=== PATIENT | male | born 1960 | race American Indian/Alaskan Native ===

== ENCOUNTER 2020-12-27 16:20 | Inpatient (IN) | payer MEDICAID ==
[2020-12-27] MEDS ORDERED: SODIUM CHLORIDE 0.9% 1000 ML 1,000 ML IV ONE (17:11)
--- NOTE | 2020-12-27 17:35 | XRay Report ---
CHEST 1 VIEW 12/27/2020 5:08 PM INDICATION / CLINICAL INFORMATION: AMS. COMPARISON: None available. FINDINGS: SUPPORT DEVICES: None. HEART / MEDIASTINUM: No significant abnormality. LUNGS / PLEURA: No significant pulmonary or pleural abnormality. No pneumothorax. ADDITIONAL FINDINGS: No significant additional findings. IMPRESSION: 1. No acute findings. Signer Name: Jamel Payne MD Signed: 12/27/2020 5:30 PM Workstation Name: [id number]
[2020-12-27 17:38] LABS: Amphetamine Screen,Urine Negative; Benzodiazepines Screen,Urine Negative; Cannabinoid Screen,Urine Negative; Cocaine Screen,Urine Negative; Methadone Screen,Urine Negative; Opiate Screen,Urine Negative
[2020-12-27] MEDS ORDERED: NALOXONE 2 MG/2 ML INJ IV ONE (17:51)
--- NOTE | 2020-12-27 18:13 | Cat Scan Report ---
NONENHANCED CT SCAN OF THE HEAD: INDICATION / CLINICAL INFORMATION: 89 years Male; AMS. Unresponsive TECHNIQUE: Routine CT head without contrast. All CT scans at this location are performed using CT dos e reduction for ALARA by means of automated exposure control. COMPARISON: None. FINDINGS: BRAIN / INTRACRANIAL CONTENTS: No acute hemorrhage, mass effect, midline shift, hydrocephalus, or acu te, large territorial infarct. No chronic infarct. Volume loss in the superior vermis. Normal brain v olume and ventricular/sulcal size for age. No significant white matter abnormality. CRANIOCERVICAL JUNCTION: No significant abnormality. ORBITS: No significant abnormality of visualized orbits. SINUSES / MASTOIDS: No significant abnormality of the visualized paranasal sinuses or mastoid air aruna ls. ADDITIONAL FINDINGS: None. IMPRESSION: No focal mass, hemorrhage, hydrocephalus, or acute, large territorial infarct.; Volume loss in the s uperior vermis Signer Name: Gary Valencia MD Signed: 12/27/2020 6:08 PM Workstation Name: [id number]
[2020-12-27 18:26] LABS: Alanine Aminotransferase 10 units/L (7-56); Albumin 3.9 g/dL (3.9-5); Blood Urea Nitrogen 9 mg/dL (9-20); Hemolysis Index 17
[2020-12-27 18:27] LABS: BUN/Creatinine Ratio 13; Bilirubin,Direct < 0.2 mg/dL (0-0.2)
[2020-12-27 18:39] LABS: Basophils # (Auto) 0.1 K/mm3 (0.0-0.1); Basophils % (Auto) 0.5 % (0.0-1.8); Eosinophils % (Auto) 0.2 % (0.0-4.3); Hematocrit 36.9 % (35.5-45.6); Hemoglobin 11.9 gm/dl (11.8-15.2); Lymphocytes # (Auto) 0.7 K/mm3 (1.2-5.4); Lymphocytes % (Auto) 6.4 % (13.4-35.0); Mean Corpuscular HGB Conc 32 % (32-34); Mean Corpuscular Volume 71 fl (84-94); Monocytes # (Auto) 0.4 K/mm3 (0.0-0.8); Monocytes % (Auto) 3.9 % (0.0-7.3); Platelet Count 265 K/mm3 (140-440); Red Blood Count 5.21 M/mm3 (3.65-5.03); Red Cell Distribution Width 17.1 % (13.2-15.2)
--- NOTE | 2020-12-27 21:16 | Emergency Department Report ---
ED Altered Mental Status HPI - General Chief Complaint: Altered Mental Status Stated Complaint: GENERAL ILLNESS Time Seen by Provider: 12/27/20 16:59 Source: EMS Mode of arrival: Stretcher Limitations: No Limitations - History of Present Illness Initial Comments: Unknown aged male presents to ED via EMS. Per EMS patient was found in the aguir[place] and brought in for evaluation. Patient is not awake and alert, he is nonverbal, he responds to painful stimuli. MD Complaint: altered mental status -: unknown Severity: moderate Consistency of Symptoms: constant Context: unknown - Related Data Allergies Allergy/AdvReac Type Severity Reaction Status Date / Time No Known Allergies Allergy Unverified 12/27/20 16:47 ED Review of Systems ROS: Stated complaint: GENERAL ILLNESS Other details as noted in HPI Comment: Unobtainable due to pts medical conditions ED Past Medical Hx - Social History Smoking Status: Unknown if ever smoked ED Physical Exam - General Limitations: No Limitations General appearance: lethargic - Head Head exam: Present: atraumatic, normocephalic, normal inspection - Eye Pupils: Present: other (Pinpoint pupils bilaterally) - ENT ENT exam: Present: mucous membranes moist - Neck Neck exam: Present: normal inspection - Respiratory Respiratory exam: Present: normal lung sounds bilaterally. Absent: respiratory distress - Cardiovascular Cardiovascular Exam: Present: regular rate, normal rhythm - GI/Abdominal GI/Abdominal exam: Present: soft. Absent: distended, tenderness - Extremities Exam Extremities exam: Present: normal inspection - Neurological Exam Neurological exam: Present: altered, other (GCS 8 (E2, V1, M5)) ED Course Vital Signs 12/27/20 12/27/20 12/27/20 16:28 16:30 16:42 Temperature 98.9 F Pulse Rate 79 91 H Respiratory 16 16 19 Rate Blood Pressure 172/96 158/84 Blood Pressure [Right] O2 Sat by Pulse 95 94 95 Oximetry 12/27/20 12/27/20 12/27/20 16:46 17:00 17:10 Temperature Pulse Rate 94 H Respiratory 21 30 H 19 Rate Blood Pressure 172/96 161/71 Blood Pressure 159/75 [Right] O2 Sat by Pulse 92 91 98 Oximetry 12/27/20 12/27/20 12/27/20 17:16 17:30 17:46 Temperature Pulse Rate Respiratory 22 21 15 Rate Blood Pressure 159/75 145/87 145/87 Blood Pressure [Right] O2 Sat by Pulse 100 100 100 Oximetry 12/27/20 12/27/20 12/27/20 17:56 18:00 18:16 Temperature Pulse Rate 88 Respiratory 20 22 28 H Rate Blood Pressure 152/91 152/91 Blood Pressure 154/71 [Right] O2 Sat by Pulse 99 100 Oximetry 12/27/20 12/27/20 12/27/20 18:30 18:46 19:00 Temperature Pulse Rate Respiratory 28 H 29 H 31 H Rate Blood Pressure 160/78 152/85 137/82 Blood Pressure [Right] O2 Sat by Pulse Oximetry 12/27/20 12/27/20 12/27/20 19:16 19:30 19:46 Temperature Pulse Rate Respiratory 22 20 20 Rate Blood Pressure 154/83 155/85 164/90 Blood Pressure [Right] O2 Sat by Pulse Oximetry 12/27/20 12/27/20 12/27/20 20:00 20:16 20:30 Temperature Pulse Rate 98 H Respiratory 33 H 28 H 27 H Rate Blood Pressure 203/102 141/86 160/89 Blood Pressure [Right] O2 Sat by Pulse 97 Oximetry 12/27/20 12/27/20 12/27/20 20:46 21:00 21:16 Temperature Pulse Rate 96 H 108 H 103 H Respiratory 23 28 H 27 H Rate Blood Pressure 154/90 157/96 169/86 Blood Pressure [Right] O2 Sat by Pulse 99 98 99 Oximetry 12/27/20 12/27/20 12/27/20 21:30 21:40 21:46 Temperature 100.5 F H Pulse Rate 89 75 Respiratory 23 20 Rate Blood Pressure 162/94 170/104 Blood Pressure [Right] O2 Sat by Pulse 99 Oximetry 12/27/20 12/27/20 12/27/20 22:00 22:16 22:30 Temperature Pulse Rate 72 72 72 Respiratory 19 22 19 Rate Blood Pressure 162/94 162/94 170/104 Blood Pressure [Right] O2 Sat by Pulse 100 100 100 Oximetry 12/27/20 12/27/20 12/27/20 22:46 23:00 23:16 Temperature Pulse Rate 88 104 H 105 H Respiratory 20 27 H 29 H Rate Blood Pressure 170/104 170/93 170/93 Blood Pressure [Right] O2 Sat by Pulse 100 96 96 Oximetry - Reevaluation(s) Reevaluation #1: 12/27/20 18:10 No change in responsiveness with Narcan. Reevaluation #2: 12/27/20 21:13 Patient still asleep. Protecting airway. Vitals are stable. Labs are unremarkable. Patient moves all extremities. He localizes pain. Remains nonverbal. - Lab Data Result diagrams: 12/27/20 17:34 12/27/20 17:34 Lab Results 12/27/20 12/27/20 12/27/20 Range/Units 16:26 17:11 17:34 WBC 10.7 (4.5-11.0) K/mm3 RBC 5.21 H (3.65-5.03) M/mm3 Hgb 11.9 (11.8-15.2) gm/dl Hct 36.9 (35.5-45.6) % MCV 71 L (84-94) fl MCH 23 L (28-32) pg MCHC 32 (32-34) % RDW 17.1 H (13.2-15.2) % Plt Count 265 (140-440) K/mm3 Lymph % (Auto) 6.4 L (13.4-35.0) % Emmet % (Auto) 3.9 (0.0-7.3) % Eos % (Auto) 0.2 (0.0-4.3) % Baso % (Auto) 0.5 (0.0-1.8) % Lymph # (Auto) 0.7 L (1.2-5.4) K/mm3 Emmet # (Auto) 0.4 (0.0-0.8) K/mm3 Eos # (Auto) 0.0 (0.0-0.4) K/mm3 Baso # (Auto) 0.1 (0.0-0.1) K/mm3 Seg Neutrophils % 89.0 H (40.0-70.0) % Seg Neutrophils # 9.5 H (1.8-7.7) K/mm3 Sodium (137-145) mmol/L Potassium (3.6-5.0) mmol/L Chloride (98-107) mmol/L Carbon Dioxide (22-30) mmol/L Anion Gap mmol/L BUN (9-20) mg/dL Creatinine (0.8-1.3) mg/dL Estimated GFR ml/min BUN/Creatinine Ratio % Glucose (75-100) mg/dL POC Glucose 99 (70-105) mg/dL Calcium (8.4-10.2) mg/dL Total Bilirubin (0.1-1.2) mg/dL Direct Bilirubin (0-0.2) mg/dL Indirect Bilirubin mg/dL AST (5-40) units/L ALT (7-56) units/L Alkaline Phosphatase (35-129) units/L Total Protein (6.3-8.2) g/dL Albumin (3.9-5) g/dL Albumin/Globulin Ratio % Salicylates (2.8-20.0) mg/dL Urine Opiates Screen Negative Urine Methadone Screen Negative Acetaminophen (10.0-30.0) ug/mL Ur Barbiturates Screen Negative Ur Phencyclidine Scrn Negative Ur Amphetamines Screen Negative U Benzodiazepines Scrn Negative Urine Cocaine Screen Negative U Marijuana (THC) Screen Negative Drugs of Abuse Note Disclamer Plasma/Serum Alcohol (0-0.07) % 12/27/20 12/27/20 12/27/20 Range/Units 17:34 17:34 17:34 WBC (4.5-11.0) K/mm3 RBC (3.65-5.03) M/mm3 Hgb (11.8-15.2) gm/dl Hct (35.5-45.6) % MCV (84-94) fl MCH (28-32) pg MCHC (32-34) % RDW (13.2-15.2) % Plt Count (140-440) K/mm3 Lymph % (Auto) (13.4-35.0) % Emmet % (Auto) (0.0-7.3) % Eos % (Auto) (0.0-4.3) % Baso % (Auto) (0.0-1.8) % Lymph # (Auto) (1.2-5.4) K/mm3 Emmet # (Auto) (0.0-0.8) K/mm3 Eos # (Auto) (0.0-0.4) K/mm3 Baso # (Auto) (0.0-0.1) K/mm3 Seg Neutrophils % (40.0-70.0) % Seg Neutrophils # (1.8-7.7) K/mm3 Sodium 135 L (137-145) mmol/L Potassium 3.8 (3.6-5.0) mmol/L Chloride 101.2 (98-107) mmol/L Carbon Dioxide 20 L (22-30) mmol/L Anion Gap 18 mmol/L BUN 9 (9-20) mg/dL Creatinine 0.7 L (0.8-1.3) mg/dL Estimated GFR > 60 ml/min BUN/Creatinine Ratio 13 % Glucose 104 H (75-100) mg/dL POC Glucose (70-105) mg/dL Calcium 9.0 (8.4-10.2) mg/dL Total Bilirubin 0.40 (0.1-1.2) mg/dL Direct Bilirubin < 0.2 (0-0.2) mg/dL Indirect Bilirubin 0.2 mg/dL AST 15 (5-40) units/L ALT 10 (7-56) units/L Alkaline Phosphatase 88 (35-129) units/L Total Protein 7.6 (6.3-8.2) g/dL Albumin 3.9 (3.9-5) g/dL Albumin/Globulin Ratio 1.1 % Salicylates < 0.3 L (2.8-20.0) mg/dL Urine Opiates Screen Urine Methadone Screen Acetaminophen 5.0 L (10.0-30.0) ug/mL Ur Barbiturates Screen Ur Phencyclidine Scrn Ur Amphetamines Screen U Benzodiazepines Scrn Urine Cocaine Screen U Marijuana (THC) Screen Drugs of Abuse Note Plasma/Serum Alcohol (0-0.07) % 12/27/20 Range/Units 17:34 WBC (4.5-11.0) K/mm3 RBC (3.65-5.03) M/mm3 Hgb (11.8-15.2) gm/dl Hct (35.5-45.6) % MCV (84-94) fl MCH (28-32) pg MCHC (32-34) % RDW (13.2-15.2) % Plt Count (140-440) K/mm3 Lymph % (Auto) (13.4-35.0) % Emmet % (Auto) (0.0-7.3) % Eos % (Auto) (0.0-4.3) % Baso % (Auto) (0.0-1.8) % Lymph # (Auto) (1.2-5.4) K/mm3 Emmet # (Auto) (0.0-0.8) K/mm3 Eos # (Auto) (0.0-0.4) K/mm3 Baso # (Auto) (0.0-0.1) K/mm3 Seg Neutrophils % (40.0-70.0) % Seg Neutrophils # (1.8-7.7) K/mm3 Sodium (137-145) mmol/L Potassium (3.6-5.0) mmol/L Chloride (98-107) mmol/L Carbon Dioxide (22-30) mmol/L Anion Gap mmol/L BUN (9-20) mg/dL Creatinine (0.8-1.3) mg/dL Estimated GFR ml/min BUN/Creatinine Ratio % Glucose (75-100) mg/dL POC Glucose (70-105) mg/dL Calcium (8.4-10.2) mg/dL Total Bilirubin (0.1-1.2) mg/dL Direct Bilirubin (0-0.2) mg/dL Indirect Bilirubin mg/dL AST (5-40) units/L ALT (7-56) units/L Alkaline Phosphatase (35-129) units/L Total Protein (6.3-8.2) g/dL Albumin (3.9-5) g/dL Albumin/Globulin Ratio % Salicylates (2.8-20.0) mg/dL Urine Opiates Screen Urine Methadone Screen Acetaminophen (10.0-30.0) ug/mL Ur Barbiturates Screen Ur Phencyclidine Scrn Ur Amphetamines Screen U Benzodiazepines Scrn Urine Cocaine Screen U Marijuana (THC) Screen Drugs of Abuse Note Plasma/Serum Alcohol < 0.01 (0-0.07) % - Radiology Data Radiology results: report reviewed, image reviewed - Medical Decision Making Unknown age male, appears to be possibly in the 50s, presents to ED by EMS. Bhavin coe was found in the wounds and transported to the ED. Work-up has been largely unremarkable. Vital signs stable. Patient mildly hypertensive, with remainder of vitals normal. He is afebrile. Labs are unremarkable. No signs of infection. WBCs normal. Chest x-ray is normal. Urine is normal. Toxicology screen is negative. CT head shows no acute findings. Patient has been monitored in ED for several hours without improvement in mental status. Patient opens eyes and withdraws to pain, but has been nonverbal. Patient is maintaining his airway. Etiology of encephalopathy is unclear. Patient will be admitted to hospitalist for further management. - Differential Diagnosis Intoxication, postictal state, intracranial abnormality, psychiatric illnes Critical care attestation.: If time is entered above; I have spent that time in minutes in the direct care of this critically ill patient, excluding procedure time. ED Disposition Clinical Impression: Acute encephalopathy Disposition: 09 ADMITTED INPATIENT Is pt being admited?: Yes Condition: Stable
[2020-12-27] MEDS ORDERED: NALOXONE 0.4 MG/1 ML INJ IV PRN (22:21)
[2020-12-27] MEDS ORDERED: ACETAMINOPHEN 325 MG TAB PO PRN (22:21)
[2020-12-27] MEDS ORDERED: ALUM-MAG HYDROXIDE-SIMETHICONE 200-200-20MG/5ML ORAL LIQD 30 ML PO PRN (22:21)
[2020-12-27] MEDS ORDERED: MAGNESIUM HYDROXIDE (MOM) ORAL LIQD UDC PO PRN (22:21)
[2020-12-27] MEDS ORDERED: ONDANSETRON 4 MG/2 ML INJ IV PRN (22:21)
--- NOTE | 2020-12-27 22:30 | History and Physical Report ---
History of Present Illness Date of examination: 12/27/20 Date of admission: 12/27/20 Chief complaint: AMS History of present illness: patient is seen in ED at bedside. patient name and age Unknown. per Ed record patient was brought to ED via EMS. Per EMS patient was found in the [place] and brought in for evaluation. Patient still unresponsive verbal and tactile st imuli. However, respiration is even and all unlabored. Blood pressure 168/88, oxygen saturation on 2 L 99%, respiration 19 and heart rate 73. CT of the head was done and is negative. Chest x-ray done is negative, urine drug screen showed negative for illicit drug, and blood work showed no acute finding. MRI of the brain ordered lactic acid ordered an elevated. Will start patient on empiric antibiotic and IV hydration. Discussed plan of care with the attending Dr. Chapman. Neurologist consulted. Past History Past Medical History: other (Patient unresponsive) Medications and Allergies Allergies Allergy/AdvReac Type Severity Reaction Status Date / Time No Known Allergies Allergy Unverified 12/27/20 16:47 Active Meds: Active Medications Acetaminophen (Acetaminophen 325 Mg Tab) 650 mg PO Q4H PRN PRN Reason: Pain MILD(1-3)/Fever >100.5/CARRERA Al Hydrox/Mg Hydrox/Simethicone (Alum-Mag Hydroxide-Simethicone 147-058-50jc/5ml Oral Liqd 30 Ml) 30 ml PO Q4H PRN PRN Reason: Indigestion Enoxaparin Sodium (Enoxaparin 40 Mg/0.4 Ml Inj) 40 mg SUB-Q QDAY CHELLE Dextrose/Sodium Chloride (D5/0.45ns) 1,000 mls @ 42 mls/hr IV DIRECT CHELLE Magnesium Hydroxide (Magnesium Hydroxide (Mom) Oral Liqd Udc) 30 ml PO Q4H PRN PRN Reason: Constipation Naloxone HCl (Naloxone 0.4 Mg/1 Ml Inj) 0.1 mg IV Q2MIN PRN PRN Reason: Res Rate </= 8 or 02 SAT < 92% Ondansetron HCl (Ondansetron 4 Mg/2 Ml Inj) 4 mg IV Q8H PRN PRN Reason: Nausea And Vomiting Sodium Chloride (Sodium Chloride 0.9% 10 Ml Flush Syringe) 10 ml IV BID CHELLE Sodium Chloride (Sodium Chloride 0.9% 10 Ml Flush Syringe) 10 ml IV PRN PRN PRN Reason: LINE FLUSH Exam - Constitutional Vitals: Temp Pulse Resp BP Pulse Ox 100.5 F H 98 H 27 H 160/89 97 12/27/20 21:40 12/27/20 20:30 12/27/20 20:30 12/27/20 20:30 12/27/20 20:30 Results - Labs CBC & Chem 7: 12/27/20 17:34 12/27/20 17:34 Labs: Abnormal lab results 12/27/20 12/27/20 12/27/20 Range/Units 17:34 17:34 17:34 RBC 5.21 H (3.65-5.03) M/mm3 MCV 71 L (84-94) fl MCH 23 L (28-32) pg RDW 17.1 H (13.2-15.2) % Lymph % (Auto) 6.4 L (13.4-35.0) % Lymph # (Auto) 0.7 L (1.2-5.4) K/mm3 Seg Neutrophils % 89.0 H (40.0-70.0) % Seg Neutrophils # 9.5 H (1.8-7.7) K/mm3 Sodium 135 L (137-145) mmol/L Carbon Dioxide 20 L (22-30) mmol/L Creatinine 0.7 L (0.8-1.3) mg/dL Glucose 104 H (75-100) mg/dL Salicylates < 0.3 L (2.8-20.0) mg/dL Acetaminophen (10.0-30.0) ug/mL 12/27/20 Range/Units 17:34 RBC (3.65-5.03) M/mm3 MCV (84-94) fl MCH (28-32) pg RDW (13.2-15.2) % Lymph % (Auto) (13.4-35.0) % Lymph # (Auto) (1.2-5.4) K/mm3 Seg Neutrophils % (40.0-70.0) % Seg Neutrophils # (1.8-7.7) K/mm3 Sodium (137-145) mmol/L Carbon Dioxide (22-30) mmol/L Creatinine (0.8-1.3) mg/dL Glucose (75-100) mg/dL Salicylates (2.8-20.0) mg/dL Acetaminophen 5.0 L (10.0-30.0) ug/mL Assessment and Plan - Patient Problems (1) Acute encephalopathy Current Visit: No Status: Inactive Plan to address problem: CT of the head and urine drug test-negative MRI of brain ordered Chest x-ray negative for acute finding Consulted neurologist (2) Hyponatremia Current Visit: No Status: Acute Plan to address problem: hyponaremia mild-likely 2/2 dehydration continue IV hydration (3) Elevated blood pressure reading Current Visit: No Status: Acute Plan to address problem: Unknow BP diagnosis Monitor blood pressure PRN Hydralazine (4) DVT prophylaxis Current Visit: Yes Status: Acute Plan to address problem: Subcutaneous Lovenox
[2020-12-27] MEDS ORDERED: hydrALAZINE 20 MG/1 ML INJ IV PRN (22:35)
[2020-12-27 22:55] LABS: Mucus,Urine 1+ /HPF
[2020-12-27] MEDS ORDERED: D5W/0.45% NACL 1,000 ML IV SCH (23:00)
[2020-12-27 23:23] LABS: Bilirubin,Urine Negative (Negative); Color,Urine Straw (Yellow)
[2020-12-27 23:25] LABS: Blood,Urine 2+ (Negative); Urobilinogen,Urine < 2.0 mg/dL (<2.0)
[2020-12-28 03:16] LABS: Granular Casts,Urine 1 /LPF; Hyaline Casts,Urine 1 /LPF; Mucus,Urine FEW /HPF
[2020-12-28 03:34] LABS: Bilirubin,Urine Negative (Negative); Blood,Urine Small (Negative); Color,Urine Straw (Yellow); Urobilinogen,Urine < 2.0 mg/dL (<2.0)
[2020-12-28] MEDS ORDERED: cefTRIAXone/NS 2 GM/100 ML 2 GM/100 ML BAG IV SCH (04:00)
[2020-12-28 06:03] LABS: Hematocrit 34.6 % (35.5-45.6); Hemoglobin 11.2 gm/dl (11.8-15.2); Mean Corpuscular HGB Conc 32 % (32-34); Platelet Count 243 K/mm3 (140-440); Red Blood Count 4.95 M/mm3 (3.65-5.03); Red Cell Distribution Width 16.7 % (13.2-15.2)
[2020-12-28 06:04] LABS: Mean Corpuscular Volume 70 fl (84-94)
[2020-12-28 06:23] LABS: Alanine Aminotransferase 9 units/L (7-56); BUN/Creatinine Ratio 11; Blood Urea Nitrogen 9 mg/dL (9-20); Calcium 9.2 mg/dL (8.4-10.2); Hemolysis Index 17
[2020-12-28 08:05] LABS: Band Neutrophils # (Manual) 0.1 K/mm3; Hypochromasia 1+; Ovalocytes 1+; Total Cells Counted 100
[2020-12-28 08:06] LABS: Platelet Estimate Consistent w Auto
[2020-12-28] MEDS: cefTRIAXone/NS 2 GM/100 ML 2 GM/100 ML BAG IV SCH (10:02)
[2020-12-28] MEDS: ENOXAPARIN 40 MG/0.4 ML INJ SUB-Q SCH (10:02)
[2020-12-28] MEDS: D5W/0.9% NACL 1,000 ML IV SCH (10:03)
--- NOTE | 2020-12-28 13:05 | Consultation ---
History of Present Illness - Reason for Consult Consult date: 12/28/20 sepsis Requesting physician: JACK JENKINS - History of Present Illness The patient is a middle-aged male with unknown name and age admitted to the hospital after EMS found the patient in the ag[place], unresponsive. Vitals were relatively stable but patient had a fever of 101.8 F. Labs did not reveal any leukocytosis, mild lactic acidosis, urinary tox screen was negative. Infectious diseases was consulted for additional evaluation. Patient is slowly waking up but remains confused. Poor historian. Review of Systems: Limited due to AMS Past History Past Medical History: other (Patient unresponsive) Medications and Allergies Allergies Allergy/AdvReac Type Severity Reaction Status Date / Time No Known Allergies Allergy Unverified 12/27/20 16:47 Active Meds: Active Medications Acetaminophen (Acetaminophen 325 Mg Tab) 650 mg PO Q4H PRN PRN Reason: Pain MILD(1-3)/Fever >100.5/CARRERA Al Hydrox/Mg Hydrox/Simethicone (Alum-Mag Hydroxide-Simethicone [id number]/5ml Oral Liqd 30 Ml) 30 ml PO Q4H PRN PRN Reason: Indigestion Enoxaparin Sodium (Enoxaparin 40 Mg/0.4 Ml Inj) 40 mg SUB-Q QDAY CHELLE Last Admin: 12/28/20 10:02 Dose: 40 mg Documented by: Hydralazine HCl (Hydralazine 20 Mg/1 Ml Inj) 5 mg IV Q4H PRN PRN Reason: Hypertension Dextrose/Sodium Chloride (D5ns) 1,000 mls @ 75 mls/hr IV DIRECT CHELLE Last Admin: 12/28/20 10:03 Dose: 75 mls/hr Documented by: Ceftriaxone Sodium (Rocephin/Ns 2 Gm/100 Ml) 2 gm in 100 mls @ 200 mls/hr IV DAILY CHELLE; Protocol Last Admin: 12/28/20 10:02 Dose: 200 mls/hr Documented by: Acyclovir 1,000 mg/ Sodium (Chloride) 120 mls @ 100 mls/hr IV Q8HR CHELLE; Protocol Magnesium Hydroxide (Magnesium Hydroxide (Mom) Oral Liqd Udc) 30 ml PO Q4H PRN PRN Reason: Constipation Naloxone HCl (Naloxone 0.4 Mg/1 Ml Inj) 0.1 mg IV Q2MIN PRN PRN Reason: Res Rate </= 8 or 02 SAT < 92% Ondansetron HCl (Ondansetron 4 Mg/2 Ml Inj) 4 mg IV Q8H PRN PRN Reason: Nausea And Vomiting Sodium Chloride (Sodium Chloride 0.9% 10 Ml Flush Syringe) 10 ml IV BID CHELLE Last Admin: 12/28/20 10:02 Dose: 10 ml Documented by: Sodium Chloride (Sodium Chloride 0.9% 10 Ml Flush Syringe) 10 ml IV PRN PRN PRN Reason: LINE FLUSH Physical Examination - Physical Exam Narrative exam: Physical Exam: Constitutional: Awake, confused Head, Ears, Nose: Normocephalic, atraumatic. External ears, nose normal Eyes: Conjunctivae/corneas clear. No icterus. No ptosis. Neck: Supple, no meningeal signs Cardiovascular: S1, S2 + Respiratory: Good air entry, clear to auscultation bilaterally GI: Soft, non-tender; bowel sounds normal. No peritoneal signs Musculoskeletal: No pedal edema, no cyanosis. Skin: No rash or abscess Hem/Lymphatic: No palpable cervical or supraclavicular nodes. No lymphangitis Psych: Confused. No agitation Neurological: Awake, confused - Constitutional Vitals: Vital Signs Temp Pulse Resp BP Pulse Ox 98.2 F 88 20 135/74 94 12/28/20 12:04 12/28/20 12:04 12/28/20 12:04 12/28/20 12:04 12/28/20 12:04 Temperature -Last 24 Hours Temperature 98.2 F Temperature 98.8 F Temperature 101.8 F Temperature 100.5 F Temperature 98.9 F Results - Labs CBC & Chem 7: 12/28/20 04:38 12/28/20 04:38 Labs: Abnormal lab results 12/27/20 12/27/20 12/27/20 Range/Units 17:34 17:34 17:34 RBC 5.21 H (3.65-5.03) M/mm3 Hgb (11.8-15.2) gm/dl Hct (35.5-45.6) % MCV 71 L (84-94) fl MCH 23 L (28-32) pg RDW 17.1 H (13.2-15.2) % Lymph % (Auto) 6.4 L (13.4-35.0) % Lymph # (Auto) 0.7 L (1.2-5.4) K/mm3 Seg Neutrophils % 89.0 H (40.0-70.0) % Seg Neuts % (Manual) (40.0-70.0) % Seg Neutrophils # 9.5 H (1.8-7.7) K/mm3 Seg Neutrophils # Man (1.8-7.7) K/mm3 Sodium 135 L (137-145) mmol/L Carbon Dioxide 20 L (22-30) mmol/L Creatinine 0.7 L (0.8-1.3) mg/dL Glucose 104 H (75-100) mg/dL POC Glucose (70-105) mg/dL Lactic Acid (0.7-2.0) mmol/L Urine Blood (Negative) Salicylates < 0.3 L (2.8-20.0) mg/dL Acetaminophen (10.0-30.0) ug/mL 12/27/20 12/27/20 12/28/20 Range/Units 17:34 23:44 01:17 RBC (3.65-5.03) M/mm3 Hgb (11.8-15.2) gm/dl Hct (35.5-45.6) % MCV (84-94) fl MCH (28-32) pg RDW (13.2-15.2) % Lymph % (Auto) (13.4-35.0) % Lymph # (Auto) (1.2-5.4) K/mm3 Seg Neutrophils % (40.0-70.0) % Seg Neuts % (Manual) (40.0-70.0) % Seg Neutrophils # (1.8-7.7) K/mm3 Seg Neutrophils # Man (1.8-7.7) K/mm3 Sodium (137-145) mmol/L Carbon Dioxide (22-30) mmol/L Creatinine (0.8-1.3) mg/dL Glucose (75-100) mg/dL POC Glucose 131 H (70-105) mg/dL Lactic Acid 3.70 H* (0.7-2.0) mmol/L Urine Blood (Negative) Salicylates (2.8-20.0) mg/dL Acetaminophen 5.0 L (10.0-30.0) ug/mL 12/28/20 12/28/20 12/28/20 Range/Units 02:15 04:38 04:38 RBC (3.65-5.03) M/mm3 Hgb 11.2 L (11.8-15.2) gm/dl Hct 34.6 L (35.5-45.6) % MCV 70 L (84-94) fl MCH 23 L (28-32) pg RDW 16.7 H (13.2-15.2) % Lymph % (Auto) (13.4-35.0) % Lymph # (Auto) (1.2-5.4) K/mm3 Seg Neutrophils % (40.0-70.0) % Seg Neuts % (Manual) 81.0 H (40.0-70.0) % Seg Neutrophils # (1.8-7.7) K/mm3 Seg Neutrophils # Man 8.4 H (1.8-7.7) K/mm3 Sodium 136 L (137-145) mmol/L Carbon Dioxide (22-30) mmol/L Creatinine (0.8-1.3) mg/dL Glucose 101 H (75-100) mg/dL POC Glucose (70-105) mg/dL Lactic Acid (0.7-2.0) mmol/L Urine Blood Small A (Negative) Salicylates (2.8-20.0) mg/dL Acetaminophen (10.0-30.0) ug/mL 12/28/20 12/28/20 Range/Units 04:38 07:35 RBC (3.65-5.03) M/mm3 Hgb (11.8-15.2) gm/dl Hct (35.5-45.6) % MCV (84-94) fl MCH (28-32) pg RDW (13.2-15.2) % Lymph % (Auto) (13.4-35.0) % Lymph # (Auto) (1.2-5.4) K/mm3 Seg Neutrophils % (40.0-70.0) % Seg Neuts % (Manual) (40.0-70.0) % Seg Neutrophils # (1.8-7.7) K/mm3 Seg Neutrophils # Man (1.8-7.7) K/mm3 Sodium (137-145) mmol/L Carbon Dioxide (22-30) mmol/L Creatinine (0.8-1.3) mg/dL Glucose (75-100) mg/dL POC Glucose 115 H (70-105) mg/dL Lactic Acid 2.50 H* (0.7-2.0) mmol/L Urine Blood (Negative) Salicylates (2.8-20.0) mg/dL Acetaminophen (10.0-30.0) ug/mL - Imaging and Cardiology Chest x-ray: report reviewed, image reviewed (no pneumonia) Assessment and Plan Cultures: None A/P: Middle aged male, unknown age and name admitted after EMS found the patient in the [place], unresponsive: #Fever: Etiology unclear. No leukocytosis. UA not impressive for UTI. Chest x-ray did not reveal any pneumonia. Patient was found in the ag[place], unresponsive. Mental status slowly getting better. No thrombocytopenia or transaminitis to suggest tickborne illness. Acute bacterial meningitis seems unlikely. #Acute encephalopathy: CT head without acute findings. urinary tox screen was negative Recs: Blood cultures ordered continue empiric ceftriaxone for now, d/c if afebrile and cultures negative added Acyclovir IV to cover HSV encephalitis. F/U MRI. Consider LP Jesusita Parr MD, FACP [facility] ([facility] O: [phone] F: [phone]
[2020-12-28] MEDS: ACYCLOVIR 1,000 MG in SODIUM CHLORIDE 0.9% 100 ML IV SCH (14:37)
--- NOTE | 2020-12-28 15:41 | Progress Note ---
Assessment and Plan Assessment and plan: patient is seen in ED at bedside. patient name and age Unknown. per Ed record patient was brought to ED via EMS. Per EMS patient was found in the [facility] and brought in for evaluation. Patient still unresponsive verbal and tactile stimuli. However, respiration is even and all unlabored. Blood pressure 168/88, oxygen saturation on 2 L 99%, respiration 19 and heart rate 73. CT of the head was done and is negative. Chest x-ray done is negative, urine drug screen showed negative for illicit drug, and blood work showed no acute finding. MRI of the brain ordered lactic acid ordered an elevated. Will start patient on empiric antibiotic and IV hydration. Discussed plan of care with the attending Dr. Chapman. Neurologist consulted. 12/28: Patient now with fever of unknown origin. Still confused discussed with ID will obtain lumbar puncture. 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 MRI is pending. (1) Acute encephalopathy Current Visit: No Status: Inactive Plan to address problem: CT of the head and urine drug test-negative MRI of brain ordered Chest x-ray negative for acute finding Consulted neurologist (2) Hyponatremia Current Visit: No Status: Acute Plan to address problem: hyponaremia mild-likely 2/2 dehydration continue IV hydration (3) Elevated blood pressure reading Current Visit: No Status: Acute Plan to address problem: Unknow BP diagnosis Monitor blood pressure PRN Hydralazine (4) DVT prophylaxis Current Visit: Yes Status: Acute Plan to address problem: Subcutaneous Lovenox History Interval history: Patient seen and evaluated this morning remains lethargic and confused has a blank stare when I called his name later today was advised that the patient was able to go to the bathroom but was unsteady on his feet. Hospitalist Physical - Physical exam Narrative exam: VITAL SIGNS: Reviewed. GENERAL: The patient appears normally developed, disheveled confused vital signs as documented. HEAD: No signs of head trauma. EYES: Pupils are equal. Extraocular motions intact. EARS: Hearing grossly intact. MOUTH: Oropharynx is normal. NECK: No adenopathy, no JVD. CHEST: Chest with clear breath sounds bilaterally. No wheezes, rales, or rhonchi. CARDIAC: Regular rate and rhythm. S1 and S2, without murmurs, gallops, or rubs. VASCULAR: No Edema. Peripheral pulses normal and equal in all extremities. ABDOMEN: Soft, non tender and non distended. No rebound or guarding, and no masses palpated. Bowel Sounds normal. MUSCULOSKELETAL: Good range of motion of all major joints. Extremities without clubbing, cyanosis or edema. NEUROLOGIC EXAM: Awake not sure about orientation assessed not answering questions no focal sensory or strength deficits. Follows some command PSYCHIATRIC: Mood confused SKIN: detail exam as documented in skin assessment - Constitutional Vitals: Temp Pulse Resp BP Pulse Ox 98.2 F 88 20 135/74 97 12/28/20 12:04 12/28/20 12:04 12/28/20 13:38 12/28/20 12:04 12/28/20 13:38 Results - Labs CBC & Chem 7: 12/28/20 04:38 12/28/20 04:38 Labs: Laboratory Last Values WBC 10.4 K/mm3 (4.5-11.0) 12/28/20 04:38 RBC 4.95 M/mm3 (3.65-5.03) 12/28/20 04:38 Hgb 11.2 gm/dl (11.8-15.2) L 12/28/20 04:38 Hct 34.6 % (35.5-45.6) L 12/28/20 04:38 MCV 70 fl (84-94) L 12/28/20 04:38 MCH 23 pg (28-32) L 12/28/20 04:38 MCHC 32 % (32-34) 12/28/20 04:38 RDW 16.7 % (13.2-15.2) H 12/28/20 04:38 Plt Count 243 K/mm3 (140-440) 12/28/20 04:38 Lymph % (Auto) 6.4 % (13.4-35.0) L 12/27/20 17:34 [place] % (Auto) 3.9 % (0.0-7.3) 12/27/20 17:34 Eos % (Auto) 0.2 % (0.0-4.3) 12/27/20 17:34 Baso % (Auto) 0.5 % (0.0-1.8) 12/27/20 17:34 Lymph # (Auto) 0.7 K/mm3 (1.2-5.4) L 12/27/20 17:34 [place] # (Auto) 0.4 K/mm3 (0.0-0.8) 12/27/20 17:34 Eos # (Auto) 0.0 K/mm3 (0.0-0.4) 12/27/20 17:34 Baso # (Auto) 0.1 K/mm3 (0.0-0.1) 12/27/20 17:34 Add Manual Diff Complete 12/28/20 04:38 Total Counted 100 12/28/20 04:38 Seg Neutrophils % 89.0 % (40.0-70.0) H 12/27/20 17:34 Seg Neuts % (Manual) 81.0 % (40.0-70.0) H 12/28/20 04:38 Band Neutrophils % 1.0 % 12/28/20 04:38 Lymphocytes % (Manual) 14.0 % (13.4-35.0) 12/28/20 04:38 Monocytes % (Manual) 4.0 % (0.0-7.3) 12/28/20 04:38 Nucleated RBC % Not Reportable 12/28/20 04:38 Seg Neutrophils # 9.5 K/mm3 (1.8-7.7) H 12/27/20 17:34 Seg Neutrophils # Man 8.4 K/mm3 (1.8-7.7) H 12/28/20 04:38 Band Neutrophils # 0.1 K/mm3 12/28/20 04:38 Lymphocytes # (Manual) 1.5 K/mm3 (1.2-5.4) 12/28/20 04:38 Abs React Lymphs (Man) 0.0 K/mm3 12/28/20 04:38 Monocytes # (Manual) 0.4 K/mm3 (0.0-0.8) 12/28/20 04:38 Eosinophils # (Manual) 0.0 K/mm3 (0.0-0.4) 12/28/20 04:38 Basophils # (Manual) 0.0 K/mm3 (0.0-0.1) 12/28/20 04:38 Metamyelocytes # 0.0 K/mm3 12/28/20 04:38 Myelocytes # 0.0 K/mm3 12/28/20 04:38 Promyelocytes # 0.0 K/mm3 12/28/20 04:38 Blast Cells # 0.0 K/mm3 12/28/20 04:38 WBC Morphology Not Reportable 12/28/20 04:38 Hypersegmented Neuts Not Reportable 12/28/20 04:38 Hyposegmented Neuts Not Reportable 12/28/20 04:38 Hypogranular Neuts Not Reportable 12/28/20 04:38 Smudge Cells Not Reportable 12/28/20 04:38 Toxic Granulation Not Reportable 12/28/20 04:38 Toxic Vacuolation Not Reportable 12/28/20 04:38 Dohle Bodies Not Reportable 12/28/20 04:38 Pelger-Huet Anomaly Not Reportable 12/28/20 04:38 Diana Rods Not Reportable 12/28/20 04:38 Platelet Estimate Consistent w auto 12/28/20 04:38 Clumped Platelets Not Reportable 12/28/20 04:38 Plt Clumps, EDTA Not Reportable 12/28/20 04:38 Large Platelets Not Reportable 12/28/20 04:38 Giant Platelets Not Reportable 12/28/20 04:38 Platelet Satelliting Not Reportable 12/28/20 04:38 Plt Morphology Comment Not Reportable 12/28/20 04:38 RBC Morphology Not Reportable 12/28/20 04:38 Dimorphic RBCs Not Reportable 12/28/20 04:38 Polychromasia Not Reportable 12/28/20 04:38 Hypochromasia 1+ 12/28/20 04:38 Poikilocytosis Not Reportable 12/28/20 04:38 Anisocytosis Not Reportable 12/28/20 04:38 Microcytosis 1+ 12/28/20 04:38 Macrocytosis Not Reportable 12/28/20 04:38 Spherocytes Not Reportable 12/28/20 04:38 Pappenheimer Bodies Not Reportable 12/28/20 04:38 Sickle Cells Not Reportable 12/28/20 04:38 Target Cells Not Reportable 12/28/20 04:38 Tear Drop Cells Not Reportable 12/28/20 04:38 Ovalocytes 1+ 12/28/20 04:38 Helmet Cells Not Reportable 12/28/20 04:38 [place] Bodies Not Reportable 12/28/20 04:38 [place] Rings Not Reportable 12/28/20 04:38 [place] Cells Not Reportable 12/28/20 04:38 Bite Cells Not Reportable 12/28/20 04:38 Crenated Cell Not Reportable 12/28/20 04:38 Elliptocytes Not Reportable 12/28/20 04:38 Acanthocytes (Spur) Not Reportable 12/28/20 04:38 Rouleaux Not Reportable 12/28/20 04:38 Hemoglobin C Crystals Not Reportable 12/28/20 04:38 Schistocytes Not Reportable 12/28/20 04:38 Malaria parasites Not Reportable 12/28/20 04:38 [place] Bodies Not Reportable 12/28/20 04:38 Hem Pathologist Commnt No 12/28/20 04:38 Sodium 136 mmol/L (137-145) L 12/28/20 04:38 Potassium 3.6 mmol/L (3.6-5.0) 12/28/20 04:38 Chloride 100.6 mmol/L (98-107) 12/28/20 04:38 Carbon Dioxide 27 mmol/L (22-30) D 12/28/20 04:38 Anion Gap 12 mmol/L 12/28/20 04:38 BUN 9 mg/dL (9-20) 12/28/20 04:38 Creatinine 0.8 mg/dL (0.8-1.3) 12/28/20 04:38 Estimated GFR > 60 ml/min 12/28/20 04:38 BUN/Creatinine Ratio 11 % 12/28/20 04:38 Glucose 101 mg/dL (75-100) H 12/28/20 04:38 POC Glucose 102 mg/dL (70-105) 12/28/20 12:14 Lactic Acid 1.30 mmol/L (0.7-2.0) 12/28/20 08:13 Calcium 9.2 mg/dL (8.4-10.2) 12/28/20 04:38 Total Bilirubin 0.60 mg/dL (0.1-1.2) 12/28/20 04:38 Direct Bilirubin < 0.2 mg/dL (0-0.2) 12/27/20 17:34 Indirect Bilirubin 0.2 mg/dL 12/27/20 17:34 AST 14 units/L (5-40) 12/28/20 04:38 ALT 9 units/L (7-56) 12/28/20 04:38 Alkaline Phosphatase 88 units/L (35-129) 12/28/20 04:38 Total Protein 7.6 g/dL (6.3-8.2) 12/28/20 04:38 Albumin 4.0 g/dL (3.9-5) 12/28/20 04:38 Albumin/Globulin Ratio 1.1 % 12/28/20 04:38 Urine Color Straw (Yellow) 12/28/20 02:15 Urine Turbidity Clear (Clear) 12/28/20 02:15 Urine pH 5.0 (5.0-7.0) 12/28/20 02:15 Ur Specific [place] 1.025 (1.003-1.030) 12/28/20 02:15 Urine Protein 100 mg/dl mg/dL (Negative) 12/28/20 02:15 Urine Glucose (UA) Negative mg/dL (Negative) 12/28/20 02:15 Urine Ketones Negative mg/dL (Negative) 12/28/20 02:15 Urine Blood Small (Negative) A 12/28/20 02:15 Urine Nitrite Negative (Negative) 12/28/20 02:15 Ur Reducing Substances Not Reportable 12/28/20 02:15 Urine Bilirubin Negative (Negative) 12/28/20 02:15 Urine Ictotest Not Reportable 12/28/20 02:15 Urine Urobilinogen < 2.0 mg/dL (<2.0) 12/28/20 02:15 Ur Leukocyte Esterase Negative (Negative) 12/28/20 02:15 Urine WBC (Auto) 3.0 /HPF (0.0-6.0) 12/28/20 02:15 Urine RBC (Auto) 4.0 /HPF (0.0-6.0) 12/28/20 02:15 U Epithel Cells (Auto) < 1.0 /HPF (0-13.0) 12/28/20 02:15 Hyaline Casts 1 /LPF 12/28/20 02:15 Granular Casts 1 /LPF 12/28/20 02:15 Urine Mucus Few /HPF 12/28/20 02:15 Salicylates < 0.3 mg/dL (2.8-20.0) L 12/27/20 17:34 Urine Opiates Screen Negative 12/27/20 17:11 Urine Methadone Screen Negative 12/27/20 17:11 Acetaminophen 5.0 ug/mL (10.0-30.0) L 12/27/20 17:34 Ur Barbiturates Screen Negative 12/27/20 17:11 Ur Phencyclidine Scrn Negative 12/27/20 17:11 Ur Amphetamines Screen Negative 12/27/20 17:11 U Benzodiazepines Scrn Negative 12/27/20 17:11 Urine Cocaine Screen Negative 12/27/20 17:11 U Marijuana (THC) Screen Negative 12/27/20 17:11 Drugs of Abuse Note Disclamer 12/27/20 17:11 Plasma/Serum Alcohol < 0.01 % (0-0.07) 12/27/20 17:34 Active Medications - Current Medications Current Medications: Generic Name Dose Route Start Last Admin Trade Name Freq PRN Reason Stop Dose Admin Acetaminophen 650 mg 12/27/20 22:21 Acetaminophen 325 Mg Tab PO Q4H PRN Pain MILD(1-3)/Fever >100.5/CARRERA Al Hydrox/Mg Hydrox/Simethicone 30 ml 12/27/20 22:21 Alum-Mag Hydroxide-Simethicone [id number]/5ml Oral Liqd 30 Ml PO Q4H PRN Indigestion Enoxaparin Sodium 40 mg 12/28/20 10:00 12/28/20 10:02 Enoxaparin 40 Mg/0.4 Ml Inj SUB-Q 40 mg QDAY CHELLE Administration Hydralazine HCl 5 mg 12/27/20 22:35 Hydralazine 20 Mg/1 Ml Inj IV Q4H PRN Hypertension Dextrose/Sodium Chloride 1,000 mls @ 75 mls/hr 12/28/20 05:00 12/28/20 10:03 D5ns IV 75 mls/hr DIRECT CHELLE Administration Ceftriaxone Sodium 2 gm in 100 mls @ 200 mls/hr 12/28/20 10:00 12/28/20 10:02 Rocephin/Ns 2 Gm/100 Ml IV 200 mls/hr DAILY CHELLE Administration Protocol Acyclovir 1,000 mg/ Sodium 120 mls @ 100 mls/hr 12/28/20 14:30 12/28/20 14:37 Chloride IV 100 mls/hr Q8HR CHELLE Administration Protocol Magnesium Hydroxide 30 ml 12/27/20 22:21 Magnesium Hydroxide (Mom) Oral Liqd Udc PO Q4H PRN Constipation Naloxone HCl 0.1 mg 12/27/20 22:21 Naloxone 0.4 Mg/1 Ml Inj IV Q2MIN PRN Res Rate </= 8 or 02 SAT < 92% Ondansetron HCl 4 mg 12/27/20 22:21 Ondansetron 4 Mg/2 Ml Inj IV Q8H PRN Nausea And Vomiting Sodium Chloride 10 ml 12/28/20 10:00 12/28/20 10:02 Sodium Chloride 0.9% 10 Ml Flush Syringe IV 10 ml BID CHELLE Administration Sodium Chloride 10 ml 12/27/20 22:21 Sodium Chloride 0.9% 10 Ml Flush Syringe IV PRN PRN LINE FLUSH
--- NOTE | 2020-12-28 18:24 | Consultation ---
History of Present Illness Consult date: 12/28/20 Reason for Consult: Altered Mental Status Chief complaint: Altered Mental Status History of present illness: 60 yo male with unknown past medical history who presents where he was found in the [facility]. Patient is not able to provide any clinical history secondary to mentation or aphasia. Past History Past Medical History: other (unknown medical hx secondary to pt's altered men tation) Medications and Allergies Allergies Allergy/AdvReac Type Severity Reaction Status Date / Time No Known Allergies Allergy Unverified 12/27/20 16:47 Active Meds: Active Medications Acetaminophen (Acetaminophen 325 Mg Tab) 650 mg PO Q4H PRN PRN Reason: Pain MILD(1-3)/Fever >100.5/CARRER[place] Al Hydrox/Mg Hydrox/Simethicone (Alum-Mag Hydroxide-Simethicone [id number]/5ml Oral Liqd 30 Ml) 30 ml PO Q4H PRN PRN Reason: Indigestion Enoxaparin Sodium (Enoxaparin 40 Mg/0.4 Ml Inj) 40 mg SUB-Q QDAY CHELLE Last Admin: 12/28/20 10:02 Dose: 40 mg Documented by: Hydralazine HCl (Hydralazine 20 Mg/1 Ml Inj) 5 mg IV Q4H PRN PRN Reason: Hypertension Dextrose/Sodium Chloride (D5ns) 1,000 mls @ 75 mls/hr IV DIRECT CHELLE Last Admin: 12/28/20 10:03 Dose: 75 mls/hr Documented by: Ceftriaxone Sodium (Rocephin/Ns 2 Gm/100 Ml) 2 gm in 100 mls @ 200 mls/hr IV DAILY CHELLE; Protocol Last Admin: 12/28/20 10:02 Dose: 200 mls/hr Documented by: Acyclovir 1,000 mg/ Sodium (Chloride) 120 mls @ 100 mls/hr IV Q8HR CHELLE; Protoc ol Last Admin: 12/28/20 14:37 Dose: 100 mls/hr Documented by: Magnesium Hydroxide (Magnesium Hydroxide (Mom) Oral Liqd Udc) 30 ml PO Q4H PRN PRN Reason: Constipation Naloxone HCl (Naloxone 0.4 Mg/1 Ml Inj) 0.1 mg IV Q2MIN PRN PRN Reason: Res Rate </= 8 or 02 SAT < 92% Ondansetron HCl (Ondansetron 4 Mg/2 Ml Inj) 4 mg IV Q8H PRN PRN Reason: Nausea And Vomiting Sodium Chloride (Sodium Chloride 0.9% 10 Ml Flush Syringe) 10 ml IV BID CHELLE Last Admin: 12/28/20 10:02 Dose: 10 ml Documented by: Sodium Chloride (Sodium Chloride 0.9% 10 Ml Flush Syringe) 10 ml IV PRN PRN PRN Reason: LINE FLUSH Review of Systems ROS unobtainable: due to mental status Physical Examination - Vital Signs Vital Signs: Vital Signs Pulse Resp Pulse Ox 79 16 95 12/27/20 16:28 12/27/20 16:28 12/27/20 16:28 - Physical Exam Narrative exam: Gen: nad; Head: normocephalic; Eyes: no gaze deviation; no ptosis; ENT: normal vocalization; CVS: warm and well-perfused; Pulm: no respiratory distress; GI: appears non-distended; Ext: no cyanosis at distal extremities; Skin: no acute rash appreciated at distal extremities; Heme: no pathologic bruising or ecchymosis appreciated at distal extremities; Neuro: alert, oriented to first name only o/w aphasic, not following commands and not able to respond to any question; prefers to be silent; CN 2 - PERRL, visual [place] - visually tracks, CN 3, 4, 6 - no gaze deviation or unilateral ptosis; CN 5/7 - blinks spontaneously, CN 8 - turns his head to voice and answers with first name appropriately; 9, 10 - swallows spontaneously, CN 11 - symmetric, CN 12 - pt is not cooperative; Motor - at least 3/5 at BUEs and at least 2/5 at BLEs; Sensory - moves all exts to light touch, Cerebellar - pt cannot cooperate, Gait - deferred secondary to fall risk; Results - Laboratory Findings CBC and BMP: 12/28/20 04:38 12/28/20 04:38 Abnormal Lab Findings: Abnormal Labs 12/27/20 12/27/20 12/27/20 17:34 17:34 17:34 RBC 5.21 H Hgb Hct MCV 71 L MCH 23 L RDW 17.1 H Lymph % (Auto) 6.4 L Lymph # (Auto) 0.7 L Seg Neutrophils % 89.0 H Seg Neuts % (Manual) Seg Neutrophils # 9.5 H Seg Neutrophils # Man Sodium 135 L Carbon Dioxide 20 L Creatinine 0.7 L Glucose 104 H POC Glucose Lactic Acid Urine Blood Salicylates < 0.3 L Acetaminophen 12/27/20 12/27/20 12/28/20 17:34 23:44 01:17 RBC Hgb Hct MCV MCH RDW Lymph % (Auto) Lymph # (Auto) Seg Neutrophils % Seg Neuts % (Manual) Seg Neutrophils # Seg Neutrophils # Man Sodium Carbon Dioxide Creatinine Glucose POC Glucose 131 H Lactic Acid 3.70 H* Urine Blood Salicylates Acetaminophen 5.0 L 12/28/20 12/28/20 12/28/20 02:15 04:38 04:38 RBC Hgb 11.2 L Hct 34.6 L MCV 70 L MCH 23 L RDW 16.7 H Lymph % (Auto) Lymph # (Auto) Seg Neutrophils % Seg Neuts % (Manual) 81.0 H Seg Neutrophils # Seg Neutrophils # Man 8.4 H Sodium 136 L Carbon Dioxide Creatinine Glucose 101 H POC Glucose Lactic Acid Urine Blood Small A Salicylates Acetaminophen 12/28/20 12/28/20 04:38 07:35 RBC Hgb Hct MCV MCH RDW Lymph % (Auto) Lymph # (Auto) Seg Neutrophils % Seg Neuts % (Manual) Seg Neutrophils # Seg Neutrophils # Man Sodium Carbon Dioxide Creatinine Glucose POC Glucose 115 H Lactic Acid 2.50 H* Urine Blood Salicylates Acetaminophen Assessment and Plan 60 yo male with unknown medical hx who presents with encephalopathy. 1. Metabolic Encephalopathy - confirm ammonia, b12, tsh, prealbumin, thiamine, folate, ua. 2. Toxic Encephalopathy - confirm uds. 3. Acute Ischemic Stroke (microembolic to bilateral hemispheres) - aspirin 81 mg po qday; mri brain w w/o contrast and further workup based on MR findings. 4. Aphasia - awaiting MRI Brain results. 5. Subclinical Seizure - EEG pending. Harsha Burris MD Neurology [id number]
[2020-12-28] MEDS ORDERED: WATER FOR INJ Sterile (PF) 10 ML ONE (23:25)
[2020-12-28] MEDS ORDERED: ZIPRASIDONE MESYLATE 20 MG VIAL IM ONE (23:28)
[2020-12-29] MEDS: ACYCLOVIR 1,000 MG in SODIUM CHLORIDE 0.9% 100 ML IV SCH ×4 (00:22→22:20)
[2020-12-29 06:10] LABS: Hematocrit 36.3 % (35.5-45.6); Mean Corpuscular HGB Conc 33 % (32-34); Mean Corpuscular Volume 70 fl (84-94); Platelet Count 231 K/mm3 (140-440); Red Cell Distribution Width 16.3 % (13.2-15.2)
[2020-12-29 06:21] LABS: Alanine Aminotransferase 11 units/L (7-56); Albumin 4.2 g/dL (3.9-5); BUN/Creatinine Ratio 14; Blood Urea Nitrogen 11 mg/dL (9-20); Calcium 9.4 mg/dL (8.4-10.2); Hemolysis Index 1
--- NOTE | 2020-12-29 08:15 | Progress Note ---
Assessment and Plan Assessment and plan: patient is seen in ED at bedside. patient name and age Unknown. per Ed record patient was brought to ED via EMS. Per EMS patient was found in the aguirre and brought in for evaluation. Patient still unresponsive verbal and tactile stimuli. However, respiration is even and all unlabored. Blood pressure 168/88, oxygen saturation on 2 L 99%, respiration 19 and heart rate 73. CT of the head was done and is negative. Chest x-ray done is negative, urine drug screen showed negative for illicit drug, and blood work showed no acute finding. MRI of the brain ordered lactic acid ordered an elevated. Will start patient on empiric antibiotic and IV hydration. Discussed plan of care with the attending Dr. Chapman. Neurologist consulted. 12/28: Patient now with fever of unknown origin. Still confused discussed with ID will obtain lumbar puncture. 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 MRI is pending. 12/29: Still with low grade fever, continue abx, follow cultures, LP to be done on thursday due to no Radiologist, Neurology input noted. Swallow eval ok, continue diet. start on HCTZ and Norvasc for HTN. No history on patient available here yet.] Want CT of the head read as negative during neurologist did review any suspect an acute ischemic stroke starting the patient on aspirin 81 mg daily unfortunately this was not started yesterday not sure why but will start that today. EEG is also ordered for possible subclinical seizures. He refused an ABG. Continue restraints as (1) Acute metabolic ncephalopathy Current Visit: No Status: Inactive Plan to address problem: CT of the head and urine drug test-negative MRI of brain ordered Chest x-ray negative for acute finding Consulted neurologist (2) Hyponatremia Current Visit: No Status: Acute Plan to address problem: hyponaremia mild-likely 2/2 dehydration continue IV hydration (3) Hypertension Current Visit: No Status: Acute Plan to address problem: Unknow BP diagnosis Monitor blood pressure PRN Hydralazine (4) possible subclinical seizures (5) DVT prophylaxis Current Visit: Yes Status: Acute Plan to address problem: Subcutaneous Lovenox History Interval history: Patient seen and evaluated this morning remains WITH some confusion but much improved compared to yesterday Hospitalist Physical - Physical exam Narrative exam: VITAL SIGNS: Reviewed. GENERAL: The patient appears normally developed, disheveled, WITH SOME CONFUSION vital signs as documented. HEAD: No signs of head trauma. EYES: Pupils are equal. Extraocular motions intact. EARS: Hearing grossly intact. MOUTH: Oropharynx is normal. NECK: No adenopathy, no JVD. CHEST: Chest with clear breath sounds bilaterally. No wheezes, rales, or rhonchi. CARDIAC: Regular rate and rhythm. S1 and S2, without murmurs, gallops, or rubs. VASCULAR: No Edema. Peripheral pulses normal and equal in all extremities. ABDOMEN: Soft, non tender and non distended. No rebound or guarding, and no masses palpated. Bowel Sounds normal. MUSCULOSKELETAL: Good range of motion of all major joints. Extremities without clubbing, cyanosis or edema. NEUROLOGIC EXAM: Awake not sure about orientation assessed not answering questi ons no focal sensory or strength deficits. Follows some command PSYCHIATRIC: Mood confused SKIN: detail exam as documented in skin assessment - Constitutional Vitals: Temp Pulse Resp BP Pulse Ox 100.2 F H 82 18 174/103 91 12/29/20 04:36 12/29/20 04:36 12/29/20 04:36 12/29/20 04:36 12/29/20 04:36 Results - Labs CBC & Chem 7: 12/29/20 05:41 12/29/20 05:41 Labs: Laboratory Last Values WBC 9.2 K/mm3 (4.5-11.0) 12/29/20 05:41 RBC 5.20 M/mm3 (3.65-5.03) H 12/29/20 05:41 Hgb 12.0 gm/dl (11.8-15.2) 12/29/20 05:41 Hct 36.3 % (35.5-45.6) 12/29/20 05:41 MCV 70 fl (84-94) L 12/29/20 05:41 MCH 23 pg (28-32) L 12/29/20 05:41 MCHC 33 % (32-34) 12/29/20 05:41 RDW 16.3 % (13.2-15.2) H 12/29/20 05:41 Plt Count 231 K/mm3 (140-440) 12/29/20 05:41 Lymph % (Auto) 6.4 % (13.4-35.0) L 12/27/20 17:34 [place] % (Auto) 3.9 % (0.0-7.3) 12/27/20 17:34 Eos % (Auto) 0.2 % (0.0-4.3) 12/27/20 17:34 Baso % (Auto) 0.5 % (0.0-1.8) 12/27/20 17:34 Lymph # (Auto) 0.7 K/mm3 (1.2-5.4) L 12/27/20 17:34 [place] # (Auto) 0.4 K/mm3 (0.0-0.8) 12/27/20 17:34 Eos # (Auto) 0.0 K/mm3 (0.0-0.4) 12/27/20 17:34 Baso # (Auto) 0.1 K/mm3 (0.0-0.1) 12/27/20 17:34 Add Manual Diff Complete 12/28/20 04:38 Total Counted 100 12/28/20 04:38 Seg Neutrophils % 89.0 % (40.0-70.0) H 12/27/20 17:34 Seg Neuts % (Manual) 81.0 % (40.0-70.0) H 12/28/20 04:38 Band Neutrophils % 1.0 % 12/28/20 04:38 Lymphocytes % (Manual) 14.0 % (13.4-35.0) 12/28/20 04:38 Monocytes % (Manual) 4.0 % (0.0-7.3) 12/28/20 04:38 Nucleated RBC % Not Reportable 12/28/20 04:38 Seg Neutrophils # 9.5 K/mm3 (1.8-7.7) H 12/27/20 17:34 Seg Neutrophils # Man 8.4 K/mm3 (1.8-7.7) H 12/28/20 04:38 Band Neutrophils # 0.1 K/mm3 12/28/20 04:38 Lymphocytes # (Manual) 1.5 K/mm3 (1.2-5.4) 12/28/20 04:38 Abs React Lymphs (Man) 0.0 K/mm3 12/28/20 04:38 Monocytes # (Manual) 0.4 K/mm3 (0.0-0.8) 12/28/20 04:38 Eosinophils # (Manual) 0.0 K/mm3 (0.0-0.4) 12/28/20 04:38 Basophils # (Manual) 0.0 K/mm3 (0.0-0.1) 12/28/20 04:38 Metamyelocytes # 0.0 K/mm3 12/28/20 04:38 Myelocytes # 0.0 K/mm3 12/28/20 04:38 Promyelocytes # 0.0 K/mm3 12/28/20 04:38 Blast Cells # 0.0 K/mm3 12/28/20 04:38 WBC Morphology Not Reportable 12/28/20 04:38 Hypersegmented Neuts Not Reportable 12/28/20 04:38 Hyposegmented Neuts Not Reportable 12/28/20 04:38 Hypogranular Neuts Not Reportable 12/28/20 04:38 Smudge Cells Not Reportable 12/28/20 04:38 Toxic Granulation Not Reportable 12/28/20 04:38 Toxic Vacuolation Not Reportable 12/28/20 04:38 Dohle Bodies Not Reportable 12/28/20 04:38 Pelger-Huet Anomaly Not Reportable 12/28/20 04:38 Diana Rods Not Reportable 12/28/20 04:38 Platelet Estimate Consistent w auto 12/28/20 04:38 Clumped Platelets Not Reportable 12/28/20 04:38 Plt Clumps, EDTA Not Reportable 12/28/20 04:38 Large Platelets Not Reportable 12/28/20 04:38 Giant Platelets Not Reportable 12/28/20 04:38 Platelet Satelliting Not Reportable 12/28/20 04:38 Plt Morphology Comment Not Reportable 12/28/20 04:38 RBC Morphology Not Reportable 12/28/20 04:38 Dimorphic RBCs Not Reportable 12/28/20 04:38 Polychromasia Not Reportable 12/28/20 04:38 Hypochromasia 1+ 12/28/20 04:38 Poikilocytosis Not Reportable 12/28/20 04:38 Anisocytosis Not Reportable 12/28/20 04:38 Microcytosis 1+ 12/28/20 04:38 Macrocytosis Not Reportable 12/28/20 04:38 Spherocytes Not Reportable 12/28/20 04:38 Pappenheimer Bodies Not Reportable 12/28/20 04:38 Sickle Cells Not Reportable 12/28/20 04:38 Target Cells Not Reportable 12/28/20 04:38 Tear Drop Cells Not Reportable 12/28/20 04:38 Ovalocytes 1+ 12/28/20 04:38 Helmet Cells Not Reportable 12/28/20 04:38 [place] Bodies Not Reportable 12/28/20 04:38 [place] Rings Not Reportable 12/28/20 04:38 [place] Cells Not Reportable 12/28/20 04:38 Bite Cells Not Reportable 12/28/20 04:38 Crenated Cell Not Reportable 12/28/20 04:38 Elliptocytes Not Reportable 12/28/20 04:38 Acanthocytes (Spur) Not Reportable 12/28/20 04:38 Rouleaux Not Reportable 12/28/20 04:38 Hemoglobin C Crystals Not Reportable 12/28/20 04:38 Schistocytes Not Reportable 12/28/20 04:38 Malaria parasites Not Reportable 12/28/20 04:38 Johnathon Bodies Not Reportable 12/28/20 04:38 Hem Pathologist Commnt No 12/28/20 04:38 Sodium 138 mmol/L (137-145) 12/29/20 05:41 Potassium 3.3 mmol/L (3.6-5.0) L 12/29/20 05:41 Chloride 100.6 mmol/L (98-107) 12/29/20 05:41 Carbon Dioxide 20 mmol/L (22-30) L D 12/29/20 05:41 Anion Gap 21 mmol/L 12/29/20 05:41 BUN 11 mg/dL (9-20) 12/29/20 05:41 Creatinine 0.8 mg/dL (0.8-1.3) 12/29/20 05:41 Estimated GFR > 60 ml/min 12/29/20 05:41 BUN/Creatinine Ratio 14 % 12/29/20 05:41 Glucose 139 mg/dL (75-100) H 12/29/20 05:41 POC Glucose 112 mg/dL (70-105) H 12/29/20 00:14 Lactic Acid 1.30 mmol/L (0.7-2.0) 12/28/20 08:13 Calcium 9.4 mg/dL (8.4-10.2) 12/29/20 05:41 Total Bilirubin 0.80 mg/dL (0.1-1.2) 12/29/20 05:41 Direct Bilirubin < 0.2 mg/dL (0-0.2) 12/27/20 17:34 Indirect Bilirubin 0.2 mg/dL 12/27/20 17:34 AST 16 units/L (5-40) 12/29/20 05:41 ALT 11 units/L (7-56) 12/29/20 05:41 Alkaline Phosphatase 84 units/L (35-129) 12/29/20 05:41 Total Protein 7.9 g/dL (6.3-8.2) 12/29/20 05:41 Albumin 4.2 g/dL (3.9-5) 12/29/20 05:41 Albumin/Globulin Ratio 1.1 % 12/29/20 05:41 Urine Color Straw (Yellow) 12/28/20 02:15 Urine Turbidity Clear (Clear) 12/28/20 02:15 Urine pH 5.0 (5.0-7.0) 12/28/20 02:15 Ur Specific [place] 1.025 (1.003-1.030) 12/28/20 02:15 Urine Protein 100 mg/dl mg/dL (Negative) 12/28/20 02:15 Urine Glucose (UA) Negative mg/dL (Negative) 12/28/20 02:15 Urine Ketones Negative mg/dL (Negative) 12/28/20 02:15 Urine Blood Small (Negative) A 12/28/20 02:15 Urine Nitrite Negative (Negative) 12/28/20 02:15 Ur Reducing Substances Not Reportable 12/28/20 02:15 Urine Bilirubin Negative (Negative) 12/28/20 02:15 Urine Ictotest Not Reportable 12/28/20 02:15 Urine Urobilinogen < 2.0 mg/dL (<2.0) 12/28/20 02:15 Ur Leukocyte Esterase Negative (Negative) 12/28/20 02:15 Urine WBC (Auto) 3.0 /HPF (0.0-6.0) 12/28/20 02:15 Urine RBC (Auto) 4.0 /HPF (0.0-6.0) 12/28/20 02:15 U Epithel Cells (Auto) < 1.0 /HPF (0-13.0) 12/28/20 02:15 Hyaline Casts 1 /LPF 12/28/20 02:15 Granular Casts 1 /LPF 12/28/20 02:15 Urine Mucus Few /HPF 12/28/20 02:15 Salicylates < 0.3 mg/dL (2.8-20.0) L 12/27/20 17:34 Urine Opiates Screen Negative 12/27/20 17:11 Urine Methadone Screen Negative 12/27/20 17:11 Acetaminophen 5.0 ug/mL (10.0-30.0) L 12/27/20 17:34 Ur Barbiturates Screen Negative 12/27/20 17:11 Ur Phencyclidine Scrn Negative 12/27/20 17:11 Ur Amphetamines Screen Negative 12/27/20 17:11 U Benzodiazepines Scrn Negative 12/27/20 17:11 Urine Cocaine Screen Negative 12/27/20 17:11 U Marijuana (THC) Screen Negative 12/27/20 17:11 Drugs of Abuse Note Disclamer 12/27/20 17:11 Plasma/Serum Alcohol < 0.01 % (0-0.07) 12/27/20 17:34 Active Medications - Current Medications Current Medications: Generic Name Dose Route Start Last Admin Trade Name Freq PRN Reason Stop Dose Admin Acetaminophen 650 mg 12/27/20 22:21 12/29/20 05:16 Acetaminophen 325 Mg Tab PO 650 mg Q4H PRN Administration Pain MILD(1-3)/Fever >100.5/CARRERA Al Hydrox/Mg Hydrox/Simethicone 30 ml 12/27/20 22:21 Alum-Mag Hydroxide-Simethicone 394-727-84pm/5ml Oral Liqd 30 Ml PO Q4H PRN Indigestion Enoxaparin Sodium 40 mg 12/28/20 10:00 12/28/20 10:02 Enoxaparin 40 Mg/0.4 Ml Inj SUB-Q 40 mg QDAY CHELLE Administration Hydralazine HCl 5 mg 12/27/20 22:35 Hydralazine 20 Mg/1 Ml Inj IV Q4H PRN Hypertension Dextrose/Sodium Chloride 1,000 mls @ 75 mls/hr 12/28/20 05:00 12/28/20 10:03 D5ns IV 75 mls/hr DIRECT CHELLE Administration Ceftriaxone Sodium 2 gm in 100 mls @ 200 mls/hr 12/28/20 10:00 12/28/20 10:02 Rocephin/Ns 2 Gm/100 Ml IV 200 mls/hr DAILY CHELLE Administration Protocol Acyclovir 1,000 mg/ Sodium 120 mls @ 100 mls/hr 12/28/20 14:30 12/29/20 05:16 Chloride IV 100 mls/hr Q8HR CHELLE Administration Protocol Magnesium Hydroxide 30 ml 12/27/20 22:21 Magnesium Hydroxide (Mom) Oral Liqd Udc PO Q4H PRN Constipation Naloxone HCl 0.1 mg 12/27/20 22:21 Naloxone 0.4 Mg/1 Ml Inj IV Q2MIN PRN Res Rate </= 8 or 02 SAT < 92% Ondansetron HCl 4 mg 12/27/20 22:21 Ondansetron 4 Mg/2 Ml Inj IV Q8H PRN Nausea And Vomiting Sodium Chloride 10 ml 12/28/20 10:00 12/29/20 00:23 Sodium Chloride 0.9% 10 Ml Flush Syringe IV 10 ml BID CHELLE Administration Sodium Chloride 10 ml 12/27/20 22:21 Sodium Chloride 0.9% 10 Ml Flush Syringe IV PRN PRN LINE FLUSH
[2020-12-29] MEDS ORDERED: POTASSIUM CHLORIDE ER 20 MEQ TAB PO SCH (09:00)
[2020-12-29] MEDS: ENOXAPARIN 40 MG/0.4 ML INJ SUB-Q SCH (11:27)
[2020-12-29] MEDS: hydroCHLOROthiazide 25 MG TAB PO SCH (11:27)
[2020-12-29] MEDS: ASPIRIN 81 MG TAB CHEW PO SCH (11:27)
[2020-12-29] MEDS: amLODIPine 5 MG TAB PO SCH (11:29)
[2020-12-29] MEDS: D5W/0.9% NACL 1,000 ML IV SCH (12:05)
[2020-12-29] MEDS: cefTRIAXone/NS 2 GM/100 ML 2 GM/100 ML BAG IV SCH (12:05)
[2020-12-30] MEDS: D5W/0.9% NACL 1,000 ML IV SCH (01:23)
[2020-12-30] MEDS: ACYCLOVIR 1,000 MG in SODIUM CHLORIDE 0.9% 100 ML IV SCH ×3 (05:48→22:15)
[2020-12-30 06:29] LABS: Hematocrit 36.5 % (35.5-45.6); Hemoglobin 12.2 gm/dl (11.8-15.2); Mean Corpuscular HGB Conc 34 % (32-34); Mean Corpuscular Volume 70 fl (84-94); Platelet Count 250 K/mm3 (140-440); Red Blood Count 5.23 M/mm3 (3.65-5.03); Red Cell Distribution Width 16.3 % (13.2-15.2)
[2020-12-30 06:43] LABS: Blood Urea Nitrogen 8 mg/dL (9-20); Calcium 9.2 mg/dL (8.4-10.2); Hemolysis Index 4
[2020-12-30 06:46] LABS: BUN/Creatinine Ratio 13
[2020-12-30] MEDS: ASPIRIN 81 MG TAB CHEW PO SCH (09:47)
[2020-12-30] MEDS: amLODIPine 5 MG TAB PO SCH (09:47)
[2020-12-30] MEDS: hydroCHLOROthiazide 25 MG TAB PO SCH (09:47)
[2020-12-30] MEDS: ENOXAPARIN 40 MG/0.4 ML INJ SUB-Q SCH (09:47)
[2020-12-30] MEDS: cefTRIAXone/NS 2 GM/100 ML 2 GM/100 ML BAG IV SCH (09:48)
--- NOTE | 2020-12-30 10:39 | Progress Note ---
Assessment and Plan Assessment and plan: patient is seen in ED at bedside. patient name and age Unknown. per Ed record patient was brought to ED via EMS. Per EMS patient was found in the aguirre and brought in for evaluation. Patient still unresponsive verbal and tactile stimuli. However, respiration is even and all unlabored. Blood pressure 168/88, oxygen saturation on 2 L 99%, respiration 19 and heart rate 73. CT of the head was done and is negative. Chest x-ray done is negative, urine drug screen showed negative for illicit drug, and blood work showed no acute finding. MRI of the brain ordered lactic acid ordered an elevated. Will start patient on empiric antibiotic and IV hydration. Discussed plan of care with the attending Dr. Chapman. Neurologist consulted. 12/28: Patient now with fever of unknown origin. Still confused discussed with ID will obtain lumbar puncture. 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 MRI is pending. 12/29: Still with low grade fever, continue abx, follow cultures, LP to be done on thursday due to no Radiologist, Neurology input noted. Swallow eval ok, continue diet. start on HCTZ and Norvasc for HTN. No history on patient available here yet.] Want CT of the head read as negative during neurologist did review any suspect an acute ischemic stroke starting the patient on aspirin 81 mg daily unfortunately this was not started yesterday not sure why but will start that today. EEG is also ordered for possible subclinical seizures. He refused an ABG. Continue restraints as 12/30: Patient still with confusion, I wonder if he has some etoh issues, will go ahead and start on CIWA protocol in addition to Banana bag. CONTINUE restraints. (1) Acute metabolic ncephalopathy Current Visit: No Status: Inactive Plan to address problem: CT of the head and urine drug test-negative MRI of brain ordered Chest x-ray negative for acute finding Consulted neurologist (2) Hyponatremia Current Visit: No Status: Acute Plan to address problem: hyponaremia mild-likely 2/2 dehydration continue IV hydration (3) Hypertension Current Visit: No Status: Acute Plan to address problem: Unknow BP diagnosis Monitor blood pressure PRN Hydralazine (4) Possible subclinical seizures (5) ?ETOH abuse (6) DVT prophylaxis Current Visit: Yes Status: Acute Plan to address problem: Subcutaneous Lovenox History Interval history: Patient seen and evaluated this morning remains some confusion but much improved compared to yesterday Hospitalist Physical - Physical exam Narrative exam: VITAL SIGNS: Reviewed. GENERAL: The patient appears normally developed, disheveled, still with confusion vital signs as documented. HEAD: No signs of head trauma. EYES: Pupils are equal. Extraocular motions intact. EARS: Hearing grossly intact. MOUTH: Oropharynx is normal. NECK: No adenopathy, no JVD. CHEST: Chest with clear breath sounds bilaterally. No wheezes, rales, or rho nchi. CARDIAC: Regular rate and rhythm. S1 and S2, without murmurs, gallops, or rubs. VASCULAR: No Edema. Peripheral pulses normal and equal in all extremities. ABDOMEN: Soft, non tender and non distended. No rebound or guarding, and no masses palpated. Bowel Sounds normal. MUSCULOSKELETAL: Good range of motion of all major joints. Extremities without clubbing, cyanosis or edema. NEUROLOGIC EXAM: Awake not sure about orientation assessed not answering questions no focal sensory or strength deficits. Follows some command PSYCHIATRIC: Mood confused SKIN: detail exam as documented in skin assessment - Constitutional Vitals: Temp Pulse Resp BP Pulse Ox 97.8 F 79 18 136/91 94 12/30/20 07:43 12/30/20 07:43 12/30/20 07:43 12/30/20 07:43 12/30/20 07:43 Results - Labs CBC & Chem 7: 12/30/20 05:31 12/30/20 05:31 Labs: Laboratory Last Values WBC 7.7 K/mm3 (4.5-11.0) 12/30/20 05:31 RBC 5.23 M/mm3 (3.65-5.03) H 12/30/20 05:31 Hgb 12.2 gm/dl (11.8-15.2) 12/30/20 05:31 Hct 36.5 % (35.5-45.6) 12/30/20 05:31 MCV 70 fl (84-94) L 12/30/20 05:31 MCH 23 pg (28-32) L 12/30/20 05:31 MCHC 34 % (32-34) 12/30/20 05:31 RDW 16.3 % (13.2-15.2) H 12/30/20 05:31 Plt Count 250 K/mm3 (140-440) 12/30/20 05:31 Lymph % (Auto) 6.4 % (13.4-35.0) L 12/27/20 17:34 [place] % (Auto) 3.9 % (0.0-7.3) 12/27/20 17:34 Eos % (Auto) 0.2 % (0.0-4.3) 12/27/20 17:34 Baso % (Auto) 0.5 % (0.0-1.8) 12/27/20 17:34 Lymph # (Auto) 0.7 K/mm3 (1.2-5.4) L 12/27/20 17:34 [place] # (Auto) 0.4 K/mm3 (0.0-0.8) 12/27/20 17:34 Eos # (Auto) 0.0 K/mm3 (0.0-0.4) 12/27/20 17:34 Baso # (Auto) 0.1 K/mm3 (0.0-0.1) 12/27/20 17:34 Add Manual Diff Complete 12/28/20 04:38 Total Counted 100 12/28/20 04:38 Seg Neutrophils % 89.0 % (40.0-70.0) H 12/27/20 17:34 Seg Neuts % (Manual) 81.0 % (40.0-70.0) H 12/28/20 04:38 Band Neutrophils % 1.0 % 12/28/20 04:38 Lymphocytes % (Manual) 14.0 % (13.4-35.0) 12/28/20 04:38 Monocytes % (Manual) 4.0 % (0.0-7.3) 12/28/20 04:38 Nucleated RBC % Not Reportable 12/28/20 04:38 Seg Neutrophils # 9.5 K/mm3 (1.8-7.7) H 12/27/20 17:34 Seg Neutrophils # Man 8.4 K/mm3 (1.8-7.7) H 12/28/20 04:38 Band Neutrophils # 0.1 K/mm3 12/28/20 04:38 Lymphocytes # (Manual) 1.5 K/mm3 (1.2-5.4) 12/28/20 04:38 Abs React Lymphs (Man) 0.0 K/mm3 12/28/20 04:38 Monocytes # (Manual) 0.4 K/mm3 (0.0-0.8) 12/28/20 04:38 Eosinophils # (Manual) 0.0 K/mm3 (0.0-0.4) 12/28/20 04:38 Basophils # (Manual) 0.0 K/mm3 (0.0-0.1) 12/28/20 04:38 Metamyelocytes # 0.0 K/mm3 12/28/20 04:38 Myelocytes # 0.0 K/mm3 12/28/20 04:38 Promyelocytes # 0.0 K/mm3 12/28/20 04:38 Blast Cells # 0.0 K/mm3 12/28/20 04:38 WBC Morphology Not Reportable 12/28/20 04:38 Hypersegmented Neuts Not Reportable 12/28/20 04:38 Hyposegmented Neuts Not Reportable 12/28/20 04:38 Hypogranular Neuts Not Reportable 12/28/20 04:38 Smudge Cells Not Reportable 12/28/20 04:38 Toxic Granulation Not Reportable 12/28/20 04:38 Toxic Vacuolation Not Reportable 12/28/20 04:38 Dohle Bodies Not Reportable 12/28/20 04:38 Pelger-Huet Anomaly Not Reportable 12/28/20 04:38 Diana Rods Not Reportable 12/28/20 04:38 Platelet Estimate Consistent w auto 12/28/20 04:38 Clumped Platelets Not Reportable 12/28/20 04:38 Plt Clumps, EDTA Not Reportable 12/28/20 04:38 Large Platelets Not Reportable 12/28/20 04:38 Giant Platelets Not Reportable 12/28/20 04:38 Platelet Satelliting Not Reportable 12/28/20 04:38 Plt Morphology Comment Not Reportable 12/28/20 04:38 RBC Morphology Not Reportable 12/28/20 04:38 Dimorphic RBCs Not Reportable 12/28/20 04:38 Polychromasia Not Reportable 12/28/20 04:38 Hypochromasia 1+ 12/28/20 04:38 Poikilocytosis Not Reportable 12/28/20 04:38 Anisocytosis Not Reportable 12/28/20 04:38 Microcytosis 1+ 10/01/21 04:38 Macrocytosis Not Reportable 12/28/20 04:38 Spherocytes Not Reportable 12/28/20 04:38 Pappenheimer Bodies Not Reportable 12/28/20 04:38 Sickle Cells Not Reportable 12/28/20 04:38 Target Cells Not Reportable 12/28/20 04:38 Tear Drop Cells Not Reportable 12/28/20 04:38 Ovalocytes 1+ 12/28/20 04:38 Helmet Cells Not Reportable 12/28/20 04:38 [place] Bodies Not Reportable 12/28/20 04:38 Henley Rings Not Reportable 12/28/20 04:38 Aakash Cells Not Reportable 12/28/20 04:38 Bite Cells Not Reportable 12/28/20 04:38 Crenated Cell Not Reportable 12/28/20 04:38 Elliptocytes Not Reportable 12/28/20 04:38 Acanthocytes (Spur) Not Reportable 12/28/20 04:38 Rouleaux Not Reportable 12/28/20 04:38 Hemoglobin C Crystals Not Reportable 12/28/20 04:38 Schistocytes Not Reportable 12/28/20 04:38 Malaria parasites Not Reportable 12/28/20 04:38 Johnathon Bodies Not Reportable 12/28/20 04:38 Hem Pathologist Commnt No 12/28/20 04:38 Sodium 140 mmol/L (137-145) 12/30/20 05:31 Potassium 3.1 mmol/L (3.6-5.0) L 12/30/20 05:31 Chloride 100.8 mmol/L (98-107) 12/30/20 05:31 Carbon Dioxide 24 mmol/L (22-30) 12/30/20 05:31 Anion Gap 18 mmol/L 12/30/20 05:31 BUN 8 mg/dL (9-20) L 12/30/20 05:31 Creatinine 0.6 mg/dL (0.8-1.3) L 12/30/20 05:31 Estimated GFR > 60 ml/min 12/30/20 05:31 BUN/Creatinine Ratio 13 % 12/30/20 05:31 Glucose 102 mg/dL (75-100) H 12/30/20 05:31 POC Glucose 112 mg/dL (70-105) H 12/29/20 00:14 Lactic Acid 1.30 mmol/L (0.7-2.0) 12/28/20 08:13 Calcium 9.2 mg/dL (8.4-10.2) 12/30/20 05:31 Total Bilirubin 0.80 mg/dL (0.1-1.2) 12/29/20 05:41 Direct Bilirubin < 0.2 mg/dL (0-0.2) 12/27/20 17:34 Indirect Bilirubin 0.2 mg/dL 12/27/20 17:34 AST 16 units/L (5-40) 12/29/20 05:41 ALT 11 units/L (7-56) 12/29/20 05:41 Alkaline Phosphatase 84 units/L (35-129) 12/29/20 05:41 Total Protein 7.9 g/dL (6.3-8.2) 12/29/20 05:41 Albumin 4.2 g/dL (3.9-5) 12/29/20 05:41 Albumin/Globulin Ratio 1.1 % 12/29/20 05:41 Urine Color Straw (Yellow) 12/28/20 02:15 Urine Turbidity Clear (Clear) 12/28/20 02:15 Urine pH 5.0 (5.0-7.0) 12/28/20 02:15 Ur Specific [place] 1.025 (1.003-1.030) 12/28/20 02:15 Urine Protein 100 mg/dl mg/dL (Negative) 12/28/20 02:15 Urine Glucose (UA) Negative mg/dL (Negative) 12/28/20 02:15 Urine Ketones Negative mg/dL (Negative) 12/28/20 02:15 Urine Blood Small (Negative) A 12/28/20 02:15 Urine Nitrite Negative (Negative) 12/28/20 02:15 Ur Reducing Substances Not Reportable 12/28/20 02:15 Urine Bilirubin Negative (Negative) 12/28/20 02:15 Urine Ictotest Not Reportable 12/28/20 02:15 Urine Urobilinogen < 2.0 mg/dL (<2.0) 12/28/20 02:15 Ur Leukocyte Esterase Negative (Negative) 12/28/20 02:15 Urine WBC (Auto) 3.0 /HPF (0.0-6.0) 12/28/20 02:15 Urine RBC (Auto) 4.0 /HPF (0.0-6.0) 12/28/20 02:15 U Epithel Cells (Auto) < 1.0 /HPF (0-13.0) 12/28/20 02:15 Hyaline Casts 1 /LPF 12/28/20 02:15 Granular Casts 1 /LPF 12/28/20 02:15 Urine Mucus Few /HPF 12/28/20 02:15 Salicylates < 0.3 mg/dL (2.8-20.0) L 12/27/20 17:34 Urine Opiates Screen Negative 12/27/20 17:11 Urine Methadone Screen Negative 12/27/20 17:11 Acetaminophen 5.0 ug/mL (10.0-30.0) L 12/27/20 17:34 Ur Barbiturates Screen Negative 12/27/20 17:11 Ur Phencyclidine Scrn Negative 12/27/20 17:11 Ur Amphetamines Screen Negative 12/27/20 17:11 U Benzodiazepines Scrn Negative 12/27/20 17:11 Urine Cocaine Screen Negative 12/27/20 17:11 U Marijuana (THC) Screen Negative 12/27/20 17:11 Drugs of Abuse Note Disclamer 12/27/20 17:11 Plasma/Serum Alcohol < 0.01 % (0-0.07) 12/27/20 17:34 Active Medications - Current Medications Current Medications: Generic Name Dose Route Start Last Admin Trade Name Freq PRN Reason Stop Dose Admin Acetaminophen 650 mg 12/27/20 22:21 12/29/20 05:16 Acetaminophen 325 Mg Tab PO 650 mg Q4H PRN Administration Pain MILD(1-3)/Fever >100.5/CARRERA Al Hydrox/Mg Hydrox/Simethicone 30 ml 12/27/20 22:21 Alum-Mag Hydroxide-Simethicone 625-523-92dn/5ml Oral Liqd 30 Ml PO Q4H PRN Indigestion Amlodipine Besylate 2.5 mg 12/29/20 10:00 12/30/20 09:47 Amlodipine 5 Mg Tab PO 2.5 mg QDAY CHELLE Administration Aspirin 81 mg 12/29/20 10:00 12/30/20 09:47 Aspirin 81 Mg Tab Chew PO 81 mg QDAY CHELLE Administration Atorvastatin Calcium 40 mg 12/29/20 22:00 12/29/20 22:19 Atorvastatin 40 Mg Tab PO 40 mg QHS CHELLE Administration Enoxaparin Sodium 40 mg 12/28/20 10:00 12/30/20 09:47 Enoxaparin 40 Mg/0.4 Ml Inj SUB-Q 40 mg QDAY CHELLE Administration Hydralazine HCl 5 mg 12/27/20 22:35 12/29/20 12:05 Hydralazine 20 Mg/1 Ml Inj IV 5 mg Q4H PRN Administration Hypertension Hydrochlorothiazide 25 mg 12/29/20 10:00 12/30/20 09:47 Hydrochlorothiazide 25 Mg Tab PO 25 mg QDAY CHELLE Administration Dextrose/Sodium Chloride 1,000 mls @ 75 mls/hr 12/28/20 05:00 12/30/20 01:23 D5ns IV 75 mls/hr DIRECT CHELLE Administration Ceftriaxone Sodium 2 gm in 100 mls @ 200 mls/hr 12/28/20 10:00 12/30/20 09:48 Rocephin/Ns 2 Gm/100 Ml IV 200 mls/hr DAILY CHELLE Administration Protocol Acyclovir 1,000 mg/ Sodium 120 mls @ 100 mls/hr 12/28/20 14:30 12/30/20 05:48 Chloride IV 100 mls/hr Q8HR CHELLE Administration Protocol Folic Acid 1 mg/ Multivitamins 1,000 mls @ 125 mls/hr 12/30/20 11:00 /Minerals 10 ml/ Thiamine HCl IV 100 mg/ Sodium Chloride .BY DURATION [facility] Sodium Chloride 1,000 mls @ 125 mls/hr 12/30/20 11:00 Nacl 0.9% 1000 Ml IV .BY DURATION CHELLE Magnesium Hydroxide 30 ml 12/27/20 22:21 Magnesium Hydroxide (Mom) Oral Liqd Udc PO Q4H PRN Constipation Naloxone HCl 0.1 mg 12/27/20 22:21 Naloxone 0.4 Mg/1 Ml Inj IV Q2MIN PRN Res Rate </= 8 or 02 SAT < 92% Ondansetron HCl 4 mg 12/27/20 22:21 Ondansetron 4 Mg/2 Ml Inj IV Q8H PRN Nausea And Vomiting Potassium Chloride 40 meq 12/30/20 11:00 Potassium Chloride Er 20 Meq Tab PO 12/30/20 11:01 ONCE ONE Sodium Chloride 10 ml 12/28/20 10:00 12/30/20 09:48 Sodium Chloride 0.9% 10 Ml Flush Syringe IV 10 ml BID CHELLE Administration Sodium Chloride 10 ml 12/27/20 22:21 Sodium Chloride 0.9% 10 Ml Flush Syringe IV PRN PRN LINE FLUSH
[2020-12-30] MEDS ORDERED: LORazepam 2 MG/ML VIAL IV PRN ×2 (11:00)
[2020-12-30] MEDS ORDERED: POTASSIUM CHLORIDE ER 20 MEQ TAB PO ONE (11:00)
--- NOTE | 2020-12-30 11:01 | Progress Note ---
Assessment and Plan Cultures: None A/P: 60 yo male, admitted after EMS found the patient in the [place], unresponsive: #Fever: Resolved. Etiology unclear. No leukocytosis. UA not impressive for UTI. Chest x-ray did not reveal any pneumonia. Patient was found in the ag[place], unresponsive. Mental status slowly getting better. No thrombocytopenia or transaminitis to suggest tickborne illness. Acute bacterial meningitis seems unlikely. #Acute encephalopathy: CT head without acute findings. urinary tox screen was negative. ? seizure (observed involunary jerking left am) ?ETOH withdrawal. 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 F/U MRI. LP pending Kellie Jain MD [facility] ([facility]) Office [phone] Subjective Date of service: 12/30/20 Principal diagnosis: AMS fever Interval history: Patient remains confused, no fever for over 24 hours, nonverbal. Objective - Exam Narrative Exam: General appearance: Alert in NAD pleasant Eyes: anicteric sclerae, moist conjunctivae; no lid-lag; PERRLA HENT: Normocephalic, Atraumatic; normal external ears, nares open, oropharynx clear with moist mucous membranes and no oral thrush Neck: supple, tracheal midline, no JVD Lungs: Clear to auscultation CV: RRR no murmur Abdomen: Soft nontender Extremities: no edema, no cyanosis Skin: No rash. Psych: no agitated Neuro: Alert, confused, nonverbal, left arm jerky - Constitutional Vitals: Vital Signs Temp Pulse Resp BP Pulse Ox 97.8 F 83 18 136/91 97 12/30/20 07:43 12/30/20 10:44 12/30/20 07:43 12/30/20 07:43 12/30/20 10:00 Temperature -Last 24 Hours Temperature 97.8 F Temperature 98.6 F Temperature 98.6 F Temperature 98.6 F Temperature 98.6 F Temperature 97.8 F Temperature 97.4 F - Labs CBC & Chem 7: 12/30/20 05:31 12/30/20 05:31 Labs: Abnormal lab results 12/30/20 12/30/20 Range/Units 05:31 05:31 RBC 5.23 H (3.65-5.03) M/mm3 MCV 70 L (84-94) fl MCH 23 L (28-32) pg RDW 16.3 H (13.2-15.2) % Potassium 3.1 L (3.6-5.0) mmol/L BUN 8 L (9-20) mg/dL Creatinine 0.6 L (0.8-1.3) mg/dL Glucose 102 H (75-100) mg/dL
[2020-12-30 13:47] LABS: Albumin 4.2 g/dL (3.9-5)
[2020-12-30] MEDS: 1: FOLIC ACID 1 MG, MULTIPLE VITAMIN INJ, ADULT 10 ML, THIAMINE 100 MG in SODIUM CHLORID IV SCH ×2 (14:26→22:15)
[2020-12-31 05:34] LABS: Hematocrit 37.7 % (35.5-45.6); Hemoglobin 12.1 gm/dl (11.8-15.2); Mean Corpuscular HGB Conc 32 % (32-34); Mean Corpuscular Volume 70 fl (84-94); Platelet Count 234 K/mm3 (140-440); Red Blood Count 5.38 M/mm3 (3.65-5.03); Red Cell Distribution Width 15.9 % (13.2-15.2)
[2020-12-31 05:57] LABS: Alanine Aminotransferase 12 units/L (7-56); Albumin 3.7 g/dL (3.9-5); Blood Urea Nitrogen 11 mg/dL (9-20); Calcium 8.8 mg/dL (8.4-10.2); Hemolysis Index 6
[2020-12-31 06:01] LABS: BUN/Creatinine Ratio 16
[2020-12-31] MEDS: ACYCLOVIR 1,000 MG in SODIUM CHLORIDE 0.9% 100 ML IV SCH ×3 (06:10→22:27)
[2020-12-31] MEDS: amLODIPine 5 MG TAB PO SCH (10:07)
[2020-12-31] MEDS: ASPIRIN 81 MG TAB CHEW PO SCH (10:07)
[2020-12-31] MEDS: hydroCHLOROthiazide 25 MG TAB PO SCH (10:07)
[2020-12-31] MEDS: cefTRIAXone/NS 2 GM/100 ML 2 GM/100 ML BAG IV SCH (10:08)
--- NOTE | 2020-12-31 11:03 | Progress Note ---
Assessment and Plan # Acute encephalopathy -r/o infection -LP is pending as well as MRI brain need to do with Gd -CT of the head and urine drug test-negative -Chest x-ray negative for acute finding -EEG from 12/27 showed diffuse slowing is suggestive of encephalopathy. #Hyponatremia -hyponaremia mild-likely 2/2 dehydration -continue IV hydration # Hypertension -Unknow BP diagnosis -Monitor blood pressure -PRN Hydralazine #ETOH abuse -no clear Hx # DVT prophylaxis -Subcutaneous Lovenox will follow Subjective Date of service: 12/31/20 Principal diagnosis: AMS fever Interval history: AMS History of present illness: patient is seen in ED at bedside. patient name and age Unknown. per Ed record patient was brought to ED via EMS. Per EMS patient was found in the agu[place] and brought in for evaluation. Patient still unresponsive verbal and tactile stimuli. However, respiration is even and all unlabored. Blood pressure 168/88, oxygen saturation on 2 L 99%, respiration 19 and heart rate 73. CT of the head was done and is negative. Chest x-ray done is negative, urine drug screen showed negative for illicit drug, and blood work showed no acute finding. MRI of the brain ordered lactic acid ordered and elevated. Will start patient on empiric antibiotic and IV hydration. Today pt. is still obtunded follow only simple command LP is pending as well as MRI brain he is on Acyclovir IV Past History Past Medical History: other (Patient unresponsive) Medications and Allergies Allergies Allergy/AdvReac Type Severity Reaction Status Date / Time No Known Allergies Allergy Unverified 12/27/20 16:47 Active Meds: Active Medications Acetaminophen (Acetaminophen 325 Mg Tab) 650 mg PO Q4H PRN PRN Reason: Pain MILD(1-3)/Fever >100.5/CARRERA Al Hydrox/Mg Hydrox/Simethicone (Alum-Mag Hydroxide-Simethicone 811-121-96fi/5ml Oral Liqd 30 Ml) 30 ml PO Q4H PRN PRN Reason: Indigestion Enoxaparin Sodium (Enoxaparin 40 Mg/0.4 Ml Inj) 40 mg SUB-Q QDAY CHELLE Dextrose/Sodium Chloride (D5/0.45ns) 1,000 mls @ 42 mls/hr IV DIRECT CHELLE Magnesium Hydroxide (Magnesium Hydroxide (Mom) Oral Liqd Udc) 30 ml PO Q4H PRN PRN Reason: Constipation Naloxone HCl (Naloxone 0.4 Mg/1 Ml Inj) 0.1 mg IV Q2MIN PRN PRN Reason: Res Rate </= 8 or 02 SAT < 92% Ondansetron HCl (Ondansetron 4 Mg/2 Ml Inj) 4 mg IV Q8H PRN PRN Reason: Nausea And Vomiting Sodium Chloride (Sodium Chloride 0.9% 10 Ml Flush Syringe) 10 ml IV BID CHELLE Sodium Chloride (Sodium Chloride 0.9% 10 Ml Flush Syringe) 10 ml IV PRN PRN PRN Reason: LINE FLUSH Objective - Vital Sign Vital Signs - 12hr 12/30/20 12/31/20 12/31/20 23:25 03:45 10:07 Temperature 97.8 F 98.2 F Pulse Rate 82 56 L 56 L Respiratory 18 18 Rate Blood Pressure 114/70 116/65 116/65 O2 Sat by Pulse 91 100 Oximetry - General Apperance Constitutional: comfortable - EENT EENT: PERRL, mucous membranes moist - Respiratory Respiratory: chest non-tender, lungs clear, rhonchi - Cardiovascular Cardiovascular: regular rate, normal S1, normal S2 Extremities: no peripheral edema bilat, no clubbing, cyanosis - Gastrointestinal Gastrointestinal: normoactive bowel sounds - Integumentary Integumentary: normal - Neurologic Cranial nerve examination: PERRL, EOMI, intact Speech examination: other (mumble no clear speech out put.) Detailed motor examination: grossly full strength in - Laboratory Findings CBC and BMP: 12/31/20 05:02 12/31/20 05:02 Abnormal Lab Findings: Abnormal Labs 12/27/20 12/27/20 12/27/20 17:34 17:34 17:34 RBC 5.21 H Hgb Hct MCV 71 L MCH 23 L RDW 17.1 H Lymph % (Auto) 6.4 L Lymph # (Auto) 0.7 L Seg Neutrophils % 89.0 H Seg Neuts % (Manual) Seg Neutrophils # 9.5 H Seg Neutrophils # Man Sodium 135 L Potassium Carbon Dioxide 20 L BUN Creatinine 0.7 L Glucose 104 H POC Glucose Lactic Acid Ammonia Albumin Urine Blood Salicylates < 0.3 L Acetaminophen 12/27/20 12/27/20 12/28/20 17:34 23:44 01:17 RBC Hgb Hct MCV MCH RDW Lymph % (Auto) Lymph # (Auto) Seg Neutrophils % Seg Neuts % (Manual) Seg Neutrophils # Seg Neutrophils # Man Sodium Potassium Carbon Dioxide BUN Creatinine Glucose POC Glucose 131 H Lactic Acid 3.70 H* Ammonia Albumin Urine Blood Salicylates Acetaminophen 5.0 L 12/28/20 12/28/20 12/28/20 02:15 04:38 04:38 RBC Hgb 11.2 L Hct 34.6 L MCV 70 L MCH 23 L RDW 16.7 H Lymph % (Auto) Lymph # (Auto) Seg Neutrophils % Seg Neuts % (Manual) 81.0 H Seg Neutrophils # Seg Neutrophils # Man 8.4 H Sodium 136 L Potassium Carbon Dioxide BUN Creatinine Glucose 101 H POC Glucose Lactic Acid Ammonia Albumin Urine Blood Small A Salicylates Acetaminophen 12/28/20 12/28/20 12/28/20 04:38 07:35 22:17 RBC Hgb Hct MCV MCH RDW Lymph % (Auto) Lymph # (Auto) Seg Neutrophils % Seg Neuts % (Manual) Seg Neutrophils # Seg Neutrophils # Man Sodium Potassium Carbon Dioxide BUN Creatinine Glucose POC Glucose 115 H 110 H Lactic Acid 2.50 H* Ammonia Albumin Urine Blood Salicylates Acetaminophen 12/29/20 12/29/20 12/29/20 00:14 05:41 05:41 RBC 5.20 H Hgb Hct MCV 70 L MCH 23 L RDW 16.3 H Lymph % (Auto) Lymph # (Auto) Seg Neutrophils % Seg Neuts % (Manual) Seg Neutrophils # Seg Neutrophils # Man Sodium Potassium 3.3 L Carbon Dioxide 20 L D BUN Creatinine Glucose 139 H POC Glucose 112 H Lactic Acid Ammonia Albumin Urine Blood Salicylates Acetaminophen 12/30/20 12/30/20 12/30/20 05:31 05:31 13:13 RBC 5.23 H Hgb Hct MCV 70 L MCH 23 L RDW 16.3 H Lymph % (Auto) Lymph # (Auto) Seg Neutrophils % Seg Neuts % (Manual) Seg Neutrophils # Seg Neutrophils # Man Sodium Potassium 3.1 L Carbon Dioxide BUN 8 L Creatinine 0.6 L Glucose 102 H POC Glucose Lactic Acid Ammonia 21.0 L Albumin Urine Blood Salicylates Acetaminophen 12/31/20 12/31/20 05:02 05:02 RBC 5.38 H Hgb Hct MCV 70 L MCH 23 L RDW 15.9 H Lymph % (Auto) Lymph # (Auto) Seg Neutrophils % Seg Neuts % (Manual) Seg Neutrophils # Seg Neutrophils # Man Sodium Potassium 3.2 L Carbon Dioxide BUN Creatinine 0.7 L Glucose POC Glucose Lactic Acid Ammonia Albumin 3.7 L Urine Blood Salicylates Acetaminophen
--- NOTE | 2020-12-31 12:55 | Progress Note ---
Assessment and Plan Cultures: Blood cultures 12/30/2020 no growth so far A/P: 60 yo male, admitted after EMS found the patient in the ag[place], unresponsive: #Fever: Resolved. Etiology unclear. No leukocytosis. UA not impressive for UTI. Chest x-ray did not reveal any pneumonia. Patient was found in the [place], unresponsive. Mental status slowly getting better. No thrombocytopenia or transaminitis to suggest tickborne illness. Acute bacterial meningitis seems unlikely. #Acute encephalopathy: CT head without acute findings. urinary tox screen was negative. ? seizure (observed involunary jerking left am) ?ETOH withdrawal. 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 F/U MRI. LP pending Dasia Burk MD [facility] ([facility]) O: [phone] F: [phone] Subjective Date of service: 12/31/20 Principal diagnosis: AMS fever Interval history: Afebrile, normal white count. Cultures remain negative. Objective - Exam Narrative Exam: General appearance: Alert in NAD pleasant Eyes: anicteric sclerae, moist conjunctivae; no lid-lag; PERRLA HENT: Normocephalic, Atraumatic; normal external ears, nares open, oropharynx clear with moist mucous membranes and no oral thrush Neck: supple, tracheal midline, no JVD Lungs: Clear to auscultation CV: RRR no murmur Abdomen: Soft nontender Extremities: no edema, no cyanosis Skin: No rash. Psych: no agitated Neuro: Alert, confused, nonverbal, left arm jerky - Constitutional Vitals: Vital Signs Temp Pulse Resp BP Pulse Ox 98.2 F 56 L 18 116/65 98 12/31/20 03:45 12/31/20 10:07 12/31/20 03:45 12/31/20 10:07 12/31/20 10:00 Temperature -Last 24 Hours Temperature 98.2 F Temperature 97.8 F Temperature 98.4 F - Labs CBC & Chem 7: 12/31/20 05:02 12/31/20 05:02 Labs: Abnormal lab results 12/30/20 12/31/20 12/31/20 Range/Units 13:13 05:02 05:02 RBC 5.38 H (3.65-5.03) M/mm3 MCV 70 L (84-94) fl MCH 23 L (28-32) pg RDW 15.9 H (13.2-15.2) % Potassium 3.2 L (3.6-5.0) mmol/L Creatinine 0.7 L (0.8-1.3) mg/dL Ammonia 21.0 L (25-60) umol/L Albumin 3.7 L (3.9-5) g/dL
[2020-12-31] MEDS: ENOXAPARIN 40 MG/0.4 ML INJ SUB-Q SCH (13:41)
--- NOTE | 2020-12-31 14:10 | Progress Note ---
Assessment and Plan Assessment and plan: patient is seen in ED at bedside. patient name and age Unknown. per Ed record patient was brought to ED via EMS. Per EMS patient was found in the [place] and brought in for evaluation. Patient still unresponsive verbal and tactile stimuli. However, respiration is even and all unlabored. Blood pressure 168/88, oxygen saturation on 2 L 99%, respiration 19 and heart rate 73[address] CT of the head was done and is negative. Chest x-ray done is negative, urine drug screen showed negative for illicit drug, and blood work showed no acute finding. MRI of the brain ordered lactic acid ordered an elevated. Will start patient on empiric antibiotic and IV hydration. Discussed plan of care with the attending Dr. Chapman. Neurologist consulted. 12/28: Patient now with fever of unknown origin. Still confused discussed with ID will obtain lumbar puncture. 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 MRI is pending. 12/29: Still with low grade fever, continue abx, follow cultures, LP to be done on thursday due to no Radiologist, Neurology input noted. Swallow eval ok, continue diet. start on HCTZ and Norvasc for HTN. No history on patient available here yet.] Want CT of the head read as negative during neurologist did review any suspect an acute ischemic stroke starting the patient on aspirin 81 mg daily unfortunately this was not started yesterday not sure why but will start that today. EEG is also ordered for possible subclinical seizures. He refused an ABG. Continue restraints as 12/30: Patient still with confusion, I wonder if he has some etoh issues, will go ahead and start on CIWA protocol in addition to Banana bag. CONTINUE restraints. 12/31: I was able to obtain records from [facility] as patient was recently admitted there on December 20 he was discharged on vitamin B12 1000 mcg daily, ferrous sulfate 325 mg twice a day and Keppra 1000 mg every 12 hours in addition to rest. Do not 1 tablet 2 times a day of 2 mg each. He does have underlying schizophrenia prior history of cocaine abuse and also history of seizure disorder and severe neurocognitive disorder. His court appointed [employer] agent is Grace Padilla phone #[phone]. At the time of his discharge from [place] he was supposed to be placed in a personal nursing home as he has a history of wandering. I am not sure if this was done. As he was brought to us "found in the [place]". Clinically he is showing some improvement but with the new information will obta in psych consultation. (1) Acute metabolic ncephalopathy Current Visit: No Status: Inactive Plan to address problem: CT of the head and urine drug test-negative MRI of brain ordered Chest x-ray negative for acute finding Consulted neurologist (2) Hyponatremia Current Visit: No Status: Acute Plan to address problem: hyponaremia mild-likely 2/2 dehydration continue IV hydration (3) Hypertension Current Visit: No Status: Acute Plan to address problem: Unknow BP diagnosis Monitor blood pressure PRN Hydralazine (4) Possible subclinical seizures (5) ?ETOH abuse (6) schizophrenia (7) Seizure disorder (8) DVT prophylaxis Current Visit: Yes Status: Acute Plan to address problem: Subcutaneous Lovenox History Interval history: Patient seen and evaluated this morning remains some confusion but much improved compared to yesterday was able to tell me that he was in the hospital but knows about it. Hospitalist Physical - Physical exam Narrative exam: VITAL SIGNS: Reviewed. GENERAL: The patient appears normally developed, disheveled, still with confusion vital signs as documented. HEAD: No signs of head trauma. EYES: Pupils are equal. Extraocular motions intact. EARS: Hearing grossly intact. MOUTH: Oropharynx is normal. NECK: No adenopathy, no JVD. CHEST: Chest with clear breath sounds bilaterally. No wheezes, rales, or rhonchi. CARDIAC: Regular rate and rhythm. S1 and S2, without murmurs, gallops, or rubs. VASCULAR: No Edema. Peripheral pulses normal and equal in all extremities. ABDOMEN: Soft, non tender and non distended. No rebound or guarding, and no masses palpated. Bowel Sounds normal. MUSCULOSKELETAL: Good range of motion of all major joints. Extremities without clubbing, cyanosis or edema. NEUROLOGIC EXAM: Awake not sure about orientation assessed not answering questions no focal sensory or strength deficits. Follows some command PSYCHIATRIC: Mood confused SKIN: detail exam as documented in skin assessment - Constitutional Vitals: Temp Pulse Resp BP Pulse Ox 98.2 F 56 L 18 116/65 98 12/31/20 03:45 12/31/20 10:07 12/31/20 03:45 12/31/20 10:07 12/31/20 10:00 Results - Labs CBC & Chem 7: 12/31/20 05:02 12/31/20 05:02 Labs: Laboratory Last Values WBC 7.1 K/mm3 (4.5-11.0) 12/31/20 05:02 RBC 5.38 M/mm3 (3.65-5.03) H 12/31/20 05:02 Hgb 12.1 gm/dl (11.8-15.2) 12/31/20 05:02 Hct 37.7 % (35.5-45.6) 12/31/20 05:02 MCV 70 fl (84-94) L 12/31/20 05:02 MCH 23 pg (28-32) L 12/31/20 05:02 MCHC 32 % (32-34) 12/31/20 05:02 RDW 15.9 % (13.2-15.2) H 12/31/20 05:02 Plt Count 234 K/mm3 (140-440) 12/31/20 05:02 Lymph % (Auto) 6.4 % (13.4-35.0) L 12/27/20 17:34 Coleman % (Auto) 3.9 % (0.0-7.3) 12/27/20 17:34 Eos % (Auto) 0.2 % (0.0-4.3) 12/27/20 17:34 Baso % (Auto) 0.5 % (0.0-1.8) 12/27/20 17:34 Lymph # (Auto) 0.7 K/mm3 (1.2-5.4) L 12/27/20 17:34 Coleman # (Auto) 0.4 K/mm3 (0.0-0.8) 12/27/20 17:34 Eos # (Auto) 0.0 K/mm3 (0.0-0.4) 12/27/20 17:34 Baso # (Auto) 0.1 K/mm3 (0.0-0.1) 12/27/20 17:34 Add Manual Diff Complete 12/28/20 04:38 Total Counted 100 12/28/20 04:38 Seg Neutrophils % 89.0 % (40.0-70.0) H 12/27/20 17:34 Seg Neuts % (Manual) 81.0 % (40.0-70.0) H 12/28/20 04:38 Band Neutrophils % 1.0 % 12/28/20 04:38 Lymphocytes % (Manual) 14.0 % (13.4-35.0) 12/28/20 04:38 Monocytes % (Manual) 4.0 % (0.0-7.3) 12/28/20 04:38 Nucleated RBC % Not Reportable 12/28/20 04:38 Seg Neutrophils # 9.5 K/mm3 (1.8-7.7) H 12/27/20 17:34 Seg Neutrophils # Man 8.4 K/mm3 (1.8-7.7) H 12/28/20 04:38 Band Neutrophils # 0.1 K/mm3 12/28/20 04:38 Lymphocytes # (Manual) 1.5 K/mm3 (1.2-5.4) 12/28/20 04:38 Abs React Lymphs (Man) 0.0 K/mm3 12/28/20 04:38 Monocytes # (Manual) 0.4 K/mm3 (0.0-0.8) 12/28/20 04:38 Eosinophils # (Manual) 0.0 K/mm3 (0.0-0.4) 12/28/20 04:38 Basophils # (Manual) 0.0 K/mm3 (0.0-0.1) 12/28/20 04:38 Metamyelocytes # 0.0 K/mm3 12/28/20 04:38 Myelocytes # 0.0 K/mm3 12/28/20 04:38 Promyelocytes # 0.0 K/mm3 12/28/20 04:38 Blast Cells # 0.0 K/mm3 12/28/20 04:38 WBC Morphology Not Reportable 12/28/20 04:38 Hypersegmented Neuts Not Reportable 12/28/20 04:38 Hyposegmented Neuts Not Reportable 12/28/20 04:38 Hypogranular Neuts Not Reportable 12/28/20 04:38 Smudge Cells Not Reportable 12/28/20 04:38 Toxic Granulation Not Reportable 12/28/20 04:38 Toxic Vacuolation Not Reportable 12/28/20 04:38 Dohle Bodies Not Reportable 12/28/20 04:38 Pelger-Huet Anomaly Not Reportable 12/28/20 04:38 Diana Rods Not Reportable 12/28/20 04:38 Platelet Estimate Consistent w auto 12/28/20 04:38 Clumped Platelets Not Reportable 12/28/20 04:38 Plt Clumps, EDTA Not Reportable 12/28/20 04:38 Large Platelets Not Reportable 12/28/20 04:38 Giant Platelets Not Reportable 12/28/20 04:38 Platelet Satelliting Not Reportable 12/28/20 04:38 Plt Morphology Comment Not Reportable 12/28/20 04:38 RBC Morphology Not Reportable 12/28/20 04:38 Dimorphic RBCs Not Reportable 12/28/20 04:38 Polychromasia Not Reportable 12/28/20 04:38 Hypochromasia 1+ 12/28/20 04:38 Poikilocytosis Not Reportable 12/28/20 04:38 Anisocytosis Not Reportable 12/28/20 04:38 Microcytosis 1+ 12/28/20 04:38 Macrocytosis Not Reportable 12/28/20 04:38 Spherocytes Not Reportable 12/28/20 04:38 Pappenheimer Bodies Not Reportable 12/28/20 04:38 Sickle Cells Not Reportable 12/28/20 04:38 Target Cells Not Reportable 12/28/20 04:38 Tear Drop Cells Not Reportable 12/28/20 04:38 Ovalocytes 1+ 12/28/20 04:38 Helmet Cells Not Reportable 12/28/20 04:38 Solano-Ramseur Bodies Not Reportable 12/28/20 04:38 Henderson Rings Not Reportable 12/28/20 04:38 [place] Cells Not Reportable 12/28/20 04:38 Bite Cells Not Reportable 12/28/20 04:38 Crenated Cell Not Reportable 12/28/20 04:38 Elliptocytes Not Reportable 12/28/20 04:38 Acanthocytes (Spur) Not Reportable 12/28/20 04:38 Rouleaux Not Reportable 12/28/20 04:38 Hemoglobin C Crystals Not Reportable 12/28/20 04:38 Schistocytes Not Reportable 12/28/20 04:38 Malaria parasites Not Reportable 12/28/20 04:38 Johnathon Bodies Not Reportable 12/28/20 04:38 Hem Pathologist Commnt No 12/28/20 04:38 Sodium 143 mmol/L (137-145) 12/31/20 05:02 Potassium 3.2 mmol/L (3.6-5.0) L 12/31/20 05:02 Chloride 106.5 mmol/L (98-107) 12/31/20 05:02 Carbon Dioxide 24 mmol/L (22-30) 12/31/20 05:02 Anion Gap 16 mmol/L 12/31/20 05:02 BUN 11 mg/dL (9-20) 12/31/20 05:02 Creatinine 0.7 mg/dL (0.8-1.3) L 12/31/20 05:02 Estimated GFR > 60 ml/min 12/31/20 05:02 BUN/Creatinine Ratio 16 % 12/31/20 05:02 Glucose 90 mg/dL (75-100) 12/31/20 05:02 POC Glucose 112 mg/dL (70-105) H 12/29/20 00:14 Lactic Acid 1.30 mmol/L (0.7-2.0) 12/28/20 08:13 Calcium 8.8 mg/dL (8.4-10.2) 12/31/20 05:02 Phosphorus 3.70 mg/dL (2.5-4.5) 12/30/20 13:13 Magnesium 2.10 mg/dL (1.7-2.3) 12/30/20 13:13 Total Bilirubin 0.50 mg/dL (0.1-1.2) 12/31/20 05:02 Direct Bilirubin < 0.2 mg/dL (0-0.2) 12/27/20 17:34 Indirect Bilirubin 0.2 mg/dL 12/27/20 17:34 AST 19 units/L (5-40) 12/31/20 05:02 ALT 12 units/L (7-56) 12/31/20 05:02 Alkaline Phosphatase 72 units/L (35-129) 12/31/20 05:02 Ammonia 21.0 umol/L (25-60) L 12/30/20 13:13 Total Protein 7.1 g/dL (6.3-8.2) 12/31/20 05:02 Albumin 3.7 g/dL (3.9-5) L 12/31/20 05:02 Albumin/Globulin Ratio 1.1 % 12/31/20 05:02 Urine Color Straw (Yellow) 12/28/20 02:15 Urine Turbidity Clear (Clear) 12/28/20 02:15 Urine pH 5.0 (5.0-7.0) 12/28/20 02:15 Ur Specific [place] 1.025 (1.003-1.030) 12/28/20 02:15 Urine Protein 100 mg/dl mg/dL (Negative) 12/28/20 02:15 Urine Glucose (UA) Negative mg/dL (Negative) 12/28/20 02:15 Urine Ketones Negative mg/dL (Negative) 12/28/20 02:15 Urine Blood Small (Negative) A 12/28/20 02:15 Urine Nitrite Negative (Negative) 12/28/20 02:15 Ur Reducing Substances Not Reportable 12/28/20 02:15 Urine Bilirubin Negative (Negative) 12/28/20 02:15 Urine Ictotest Not Reportable 12/28/20 02:15 Urine Urobilinogen < 2.0 mg/dL (<2.0) 12/28/20 02:15 Ur Leukocyte Esterase Negative (Negative) 12/28/20 02:15 Urine WBC (Auto) 3.0 /HPF (0.0-6.0) 12/28/20 02:15 Urine RBC (Auto) 4.0 /HPF (0.0-6.0) 12/28/20 02:15 U Epithel Cells (Auto) < 1.0 /HPF (0-13.0) 12/28/20 02:15 Hyaline Casts 1 /LPF 12/28/20 02:15 Granular Casts 1 /LPF 12/28/20 02:15 Urine Mucus Few /HPF 12/28/20 02:15 Salicylates < 0.3 mg/dL (2.8-20.0) L 12/27/20 17:34 Urine Opiates Screen Negative 12/27/20 17:11 Urine Methadone Screen Negative 12/27/20 17:11 Acetaminophen 5.0 ug/mL (10.0-30.0) L 12/27/20 17:34 Ur Barbiturates Screen Negative 12/27/20 17:11 Ur Phencyclidine Scrn Negative 12/27/20 17:11 Ur Amphetamines Screen Negative 12/27/20 17:11 U Benzodiazepines Scrn Negative 12/27/20 17:11 Urine Cocaine Screen Negative 12/27/20 17:11 U Marijuana (THC) Screen Negative 12/27/20 17:11 Drugs of Abuse Note Disclamer 12/27/20 17:11 Plasma/Serum Alcohol < 0.01 % (0-0.07) 12/27/20 17:34 Microbiology: Microbiology 12/30/20 13:13 Peripheral/Venous Blood Culture - Preliminary NO GROWTH AFTER 24 HOURS 12/30/20 13:13 Peripheral/Venous Blood Culture - Preliminary NO GROWTH AFTER 24 HOURS [place]/IV: Voiding Method Condom Catheter Active Medications - Current Medications Current Medications: Generic Name Dose Route Start Last Admin Trade Name Freq PRN Reason Stop Dose Admin Acetaminophen 650 mg 12/27/20 22:21 12/29/20 05:16 Acetaminophen 325 Mg Tab PO 650 mg Q4H PRN Administration Pain MILD(1-3)/Fever >100.5/CARRERA Al Hydrox/Mg Hydrox/Simethicone 30 ml 12/27/20 22:21 Alum-Mag Hydroxide-Simethicone [id number]/5ml Oral Liqd 30 Ml PO Q4H PRN Indigestion Amlodipine Besylate 2.5 mg 12/29/20 10:00 12/31/20 10:07 Amlodipine 5 Mg Tab PO 2.5 mg QDAY CHELLE Administration Aspirin 81 mg 12/29/20 10:00 12/31/20 10:07 Aspirin 81 Mg Tab Chew PO 81 mg QDAY CHELLE Administration Atorvastatin Calcium 40 mg 12/29/20 22:00 12/30/20 22:15 Atorvastatin 40 Mg Tab PO 40 mg QHS CHELLE Administration Cyanocobalamin 1,000 mcg 12/31/20 14:00 Cyanocobalamin (Vit B-12) 1000 Mcg Tab PO QDAY CHELLE Enoxaparin Sodium 40 mg 12/28/20 10:00 12/31/20 13:41 Enoxaparin 40 Mg/0.4 Ml Inj SUB-Q Not Given QDAY CHELLE Hydralazine HCl 5 mg 12/27/20 22:35 12/29/20 12:05 Hydralazine 20 Mg/1 Ml Inj IV 5 mg Q4H PRN Administration Hypertension Hydrochlorothiazide 25 mg 12/29/20 10:00 12/31/20 10:07 Hydrochlorothiazide 25 Mg Tab PO 25 mg QDAY CHELLE Administration Ceftriaxone Sodium 2 gm in 100 mls @ 200 mls/hr 12/28/20 10:00 12/31/20 10:08 Rocephin/Ns 2 Gm/100 Ml IV 200 mls/hr DAILY CHELLE Administration Protocol Acyclovir 1,000 mg/ Sodium 120 mls @ 100 mls/hr 12/28/20 14:30 12/31/20 06:10 Chloride IV 100 mls/hr Q8HR CHELLE Administration Protocol Sodium Chloride 1,000 mls @ 125 mls/hr 12/30/20 23:30 Nacl 0.9% 1000 Ml IV DIRECT CHELLE Folic Acid 1 mg/ Multivitamins 1,011.2 mls @ 125 mls/hr 12/31/20 14:00 /Minerals 10 ml/ Thiamine HCl IV 100 mg/ Sodium Chloride Q24H CHELLE Levetiracetam 1,000 mg 12/31/20 22:00 Levetiracetam 500 Mg Tab PO BID CHELLE Lorazepam 2 mg 12/30/20 11:00 12/30/20 22:21 Lorazepam 2 Mg/Ml Vial IV 2 mg Q1HR PRN Administration CIWA-Ar 8-15 Lorazepam 4 mg 12/30/20 11:00 Lorazepam 2 Mg/Ml Vial IV Q1HR PRN CIWA-Ar 16-25 Magnesium Hydroxide 30 ml 12/27/20 22:21 Magnesium Hydroxide (Mom) Oral Liqd Udc PO Q4H PRN Constipation Naloxone HCl 0.1 mg 12/27/20 22:21 Naloxone 0.4 Mg/1 Ml Inj IV Q2MIN PRN Res Rate </= 8 or 02 SAT < 92% Ondansetron HCl 4 mg 12/27/20 22:21 Ondansetron 4 Mg/2 Ml Inj IV Q8H PRN Nausea And Vomiting Risperidone 1 mg 12/31/20 22:00 Risperidone 1 Mg Tab PO BID CHELLE Sodium Chloride 10 ml 12/28/20 10:00 12/31/20 10:09 Sodium Chloride 0.9% 10 Ml Flush Syringe IV 10 ml BID CHELLE Administration Sodium Chloride 10 ml 12/27/20 22:21 Sodium Chloride 0.9% 10 Ml Flush Syringe IV PRN PRN LINE FLUSH
[2020-12-31] MEDS: SODIUM CHLORIDE 0.9% 1000 ML 1,000 ML IV SCH (17:33)
[2020-12-31] MEDS: THIAMINE IV SCH (17:38)
[2020-12-31] MEDS: MULTIPLE VITAMIN IV SCH (17:38)
[2020-12-31] MEDS: [UNRECOGNIZED DRUG - OTHER] IV SCH (17:38)
[2020-12-31] MEDS: FOLIC ACID IV SCH (17:38)
[2020-12-31] MEDS: CYANOCOBALAMIN (VIT B-12) 1000 MCG TAB PO SCH (17:42)
[2020-12-31] MEDS: risperiDONE 1 MG TAB PO SCH (22:28)
[2020-12-31] MEDS: levETIRAcetam 500 MG TAB PO SCH (22:28)
[2021-01-01] MEDS: ACYCLOVIR 1,000 MG in SODIUM CHLORIDE 0.9% 100 ML IV SCH ×3 (05:45→22:55)
[2021-01-01] MEDS: SODIUM CHLORIDE 0.9% 1000 ML 1,000 ML IV SCH ×2 (05:51→23:38)
[2021-01-01] MEDS: hydroCHLOROthiazide 25 MG TAB PO SCH (10:28)
[2021-01-01] MEDS: risperiDONE 1 MG TAB PO SCH ×2 (10:28→22:55)
[2021-01-01] MEDS: ASPIRIN 81 MG TAB CHEW PO SCH (10:28)
[2021-01-01] MEDS: levETIRAcetam 500 MG TAB PO SCH ×2 (10:28→22:55)
[2021-01-01] MEDS: ENOXAPARIN 40 MG/0.4 ML INJ SUB-Q SCH (10:28)
[2021-01-01] MEDS: CYANOCOBALAMIN (VIT B-12) 1000 MCG TAB PO SCH (10:28)
[2021-01-01] MEDS: amLODIPine 5 MG TAB PO SCH (10:28)
[2021-01-01] MEDS: cefTRIAXone/NS 2 GM/100 ML 2 GM/100 ML BAG IV SCH (10:29)
--- NOTE | 2021-01-01 10:38 | Progress Note ---
Assessment and Plan Assessment and plan: patient is seen in ED at bedside. patient name and age Unknown. per Ed record patient was brought to ED via EMS. Per EMS patient was found in the [place] and brought in for evaluation. Patient still unresponsive verbal and tactile stimuli. However, respiration is even and all unlabored. Blood pressure 168/88, oxygen saturation on 2 L 99%, respiration 19 and heart rate 73. CT of the head was done and is negative. Chest x-ray done is negative, urine drug screen showed negative for illicit drug, and blood work showed no acute finding. MRI of the brain ordered lactic acid ordered an elevated. Will start patient on empiric antibiotic and IV hydration. Discussed plan of care with the attending Dr. Chapman. Neurologist consulted. --Acute metabolic ncephalopathy CT of the head and urine drug test-negative MRI of brain ordered Chest x-ray negative for acute finding Consulted neurologist --Hyponatremia/resolved hyponaremia mild-likely 2/2 dehydration continue IV hydration -- Hypertension Continue current antihypertensives. Monitor blood pressure PRN Hydralazine -- Possible Seizure disorder Seizure precautions, antiepileptic medications, possible EEG, neurology consult --?ETOH abuse thiamine, folic acid Closely monitor for alcohol withdrawal symptoms. --History of schizophrenia Continue psych medications psych consulted Closely monitor --DVT prophylaxis Subcutaneous Lovenox We will closely monitor the patient and adjust management as needed Nurse Extern recommendations noted and appreciated Daily Hospital course: 12/28: Patient now with fever of unknown origin. Still confused discussed with ID will obtain lumbar puncture. 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 MRI is pending. 12/29: Still with low grade fever, continue abx, follow cultures, LP to be done on thursday due to no Radiologist, Neurology input noted. Swallow eval ok, continue diet. start on HCTZ and Norvasc for HTN. No history on patient available here yet.] Want CT of the head read as negative during neurologist did review any suspect an acute ischemic stroke starting the patient on aspirin 81 mg daily unfortunately this was not started yesterday not sure why but will start that today. EEG is also ordered for possible subclinical seizures. He refused an ABG. Continue restraints as 12/30: Patient still with confusion, I wonder if he has some etoh issues, will go ahead and start on CIWA protocol in addition to Banana bag. CONTINUE restraints. 12/31: I was able to obtain records from [facility] as patient was recently admitted there on December 20 he was discharged on vitamin B12 1000 mcg daily, ferrous sulfate 325 mg twice a day and Keppra 1000 mg every 12 hours in addition to rest. Do not 1 tablet 2 times a day of 2 mg each. He does have underlying schizophrenia prior history of cocaine abuse and also history of seizure disorder and severe neurocognitive disorder. His court appointed [employer] agent is Grace Padilla phone #[phone]. At the time of his discharge from [facility] he was supposed to be placed in a personal nursing home as he has a history of wandering. I am not sure if this was done. As he was brought to us "found in the [place]". Clinically he is showing some improvement but with the new information will obtain psych consultation. 01/01; could not do the MRI due to his severe agitation And noncooperation, will try MRI study again tomorrow with Ativan History Interval history: I have have seen and examined the patient at the bedside Patient's chart and medications reviewed Patient feels slightly better no new complaints Hospitalist Physical - Constitutional Vitals: Temp Pulse Resp BP Pulse Ox 97.5 F L 76 20 118/70 92 01/01/21 07:17 01/01/21 07:17 01/01/21 07:17 01/01/21 07:17 01/01/21 07:17 General appearance: Present: no acute distress, well-nourished, obese - EENT Eyes: Present: PERRL, EOM intact - Neck Neck: Present: supple, normal ROM - Respiratory Respiratory effort: normal Respiratory: bilateral: diminished, negative: rales, rhonchi, wheezing - Extremities Extremities: no ischemia, No edema - Abdominal General gastrointestinal: soft, non-tender, non-distended, normal bowel sounds - Integumentary Integumentary: Present: clear, warm - Psychiatric Psychiatric: appropriate mood/affect, cooperative - Neurologic Neurologic: CNII-XII intact, moves all extremities Results - Labs CBC & Chem 7: 12/31/20 05:02 12/31/20 05:02 Labs: Laboratory Last Values WBC 7.1 K/mm3 (4.5-11.0) 12/31/20 05:02 RBC 5.38 M/mm3 (3.65-5.03) H 12/31/20 05:02 Hgb 12.1 gm/dl (11.8-15.2) 12/31/20 05:02 Hct 37.7 % (35.5-45.6) 12/31/20 05:02 MCV 70 fl (84-94) L 12/31/20 05:02 MCH 23 pg (28-32) L 12/31/20 05:02 MCHC 32 % (32-34) 12/31/20 05:02 RDW 15.9 % (13.2-15.2) H 12/31/20 05:02 Plt Count 234 K/mm3 (140-440) 12/31/20 05:02 Lymph % (Auto) 6.4 % (13.4-35.0) L 12/27/20 17:34 [place] % (Auto) 3.9 % (0.0-7.3) 12/27/20 17:34 Eos % (Auto) 0.2 % (0.0-4.3) 12/27/20 17:34 Baso % (Auto) 0.5 % (0.0-1.8) 12/27/20 17:34 Lymph # (Auto) 0.7 K/mm3 (1.2-5.4) L 12/27/20 17:34 [place] # (Auto) 0.4 K/mm3 (0.0-0.8) 12/27/20 17:34 Eos # (Auto) 0.0 K/mm3 (0.0-0.4) 12/27/20 17:34 Baso # (Auto) 0.1 K/mm3 (0.0-0.1) 12/27/20 17:34 Add Manual Diff Complete 12/28/20 04:38 Total Counted 100 12/28/20 04:38 Seg Neutrophils % 89.0 % (40.0-70.0) H 12/27/20 17:34 Seg Neuts % (Manual) 81.0 % (40.0-70.0) H 12/28/20 04:38 Band Neutrophils % 1.0 % 12/28/20 04:38 Lymphocytes % (Manual) 14.0 % (13.4-35.0) 12/28/20 04:38 Monocytes % (Manual) 4.0 % (0.0-7.3) 12/28/20 04:38 Nucleated RBC % Not Reportable 12/28/20 04:38 Seg Neutrophils # 9.5 K/mm3 (1.8-7.7) H 12/27/20 17:34 Seg Neutrophils # Man 8.4 K/mm3 (1.8-7.7) H 12/28/20 04:38 Band Neutrophils # 0.1 K/mm3 12/28/20 04:38 Lymphocytes # (Manual) 1.5 K/mm3 (1.2-5.4) 12/28/20 04:38 Abs React Lymphs (Man) 0.0 K/mm3 12/28/20 04:38 Monocytes # (Manual) 0.4 K/mm3 (0.0-0.8) 12/28/20 04:38 Eosinophils # (Manual) 0.0 K/mm3 (0.0-0.4) 12/28/20 04:38 Basophils # (Manual) 0.0 K/mm3 (0.0-0.1) 12/28/20 04:38 Metamyelocytes # 0.0 K/mm3 12/28/20 04:38 Myelocytes # 0.0 K/mm3 12/28/20 04:38 Promyelocytes # 0.0 K/mm3 12/28/20 04:38 Blast Cells # 0.0 K/mm3 12/28/20 04:38 WBC Morphology Not Reportable 12/28/20 04:38 Hypersegmented Neuts Not Reportable 12/28/20 04:38 Hyposegmented Neuts Not Reportable 12/28/20 04:38 Hypogranular Neuts Not Reportable 12/28/20 04:38 Smudge Cells Not Reportable 12/28/20 04:38 Toxic Granulation Not Reportable 12/28/20 04:38 Toxic Vacuolation Not Reportable 12/28/20 04:38 Dohle Bodies Not Reportable 12/28/20 04:38 Pelger-Huet Anomaly Not Reportable 12/28/20 04:38 Diana Rods Not Reportable 12/28/20 04:38 Platelet Estimate Consistent w auto 12/28/20 04:38 Clumped Platelets Not Reportable 12/28/20 04:38 Plt Clumps, EDTA Not Reportable 12/28/20 04:38 Large Platelets Not Reportable 12/28/20 04:38 Giant Platelets Not Reportable 12/28/20 04:38 Platelet Satelliting Not Reportable 12/28/20 04:38 Plt Morphology Comment Not Reportable 12/28/20 04:38 RBC Morphology Not Reportable 12/28/20 04:38 Dimorphic RBCs Not Reportable 12/28/20 04:38 Polychromasia Not Reportable 12/28/20 04:38 Hypochromasia 1+ 12/28/20 04:38 Poikilocytosis Not Reportable 12/28/20 04:38 Anisocytosis Not Reportable 12/28/20 04:38 Microcytosis 1+ 12/28/20 04:38 Macrocytosis Not Reportable 12/28/20 04:38 Spherocytes Not Reportable 12/28/20 04:38 Pappenheimer Bodies Not Reportable 12/28/20 04:38 Sickle Cells Not Reportable 12/28/20 04:38 Target Cells Not Reportable 12/28/20 04:38 Tear Drop Cells Not Reportable 12/28/20 04:38 Ovalocytes 1+ 12/28/20 04:38 Helmet Cells Not Reportable 12/28/20 04:38 [place] Bodies Not Reportable 12/28/20 04:38 [place] Rings Not Reportable 12/28/20 04:38 Aakash Cells Not Reportable 12/28/20 04:38 Bite Cells Not Reportable 12/28/20 04:38 Crenated Cell Not Reportable 12/28/20 04:38 Elliptocytes Not Reportable 12/28/20 04:38 Acanthocytes (Spur) Not Reportable 12/28/20 04:38 Rouleaux Not Reportable 12/28/20 04:38 Hemoglobin C Crystals Not Reportable 12/28/20 04:38 Schistocytes Not Reportable 12/28/20 04:38 Malaria parasites Not Reportable 12/28/20 04:38 Johnathon Bodies Not Reportable 12/28/20 04:38 Hem Pathologist Commnt No 12/28/20 04:38 Sodium 143 mmol/L (137-145) 12/31/20 05:02 Potassium 3.2 mmol/L (3.6-5.0) L 12/31/20 05:02 Chloride 106.5 mmol/L (98-107) 12/31/20 05:02 Carbon Dioxide 24 mmol/L (22-30) 12/31/20 05:02 Anion Gap 16 mmol/L 12/31/20 05:02 BUN 11 mg/dL (9-20) 12/31/20 05:02 Creatinine 0.7 mg/dL (0.8-1.3) L 12/31/20 05:02 Estimated GFR > 60 ml/min 12/31/20 05:02 BUN/Creatinine Ratio 16 % 12/31/20 05:02 Glucose 90 mg/dL (75-100) 12/31/20 05:02 POC Glucose 112 mg/dL (70-105) H 12/29/20 00:14 Lactic Acid 1.30 mmol/L (0.7-2.0) 12/28/20 08:13 Calcium 8.8 mg/dL (8.4-10.2) 12/31/20 05:02 Phosphorus 3.70 mg/dL (2.5-4.5) 12/30/20 13:13 Magnesium 2.10 mg/dL (1.7-2.3) 12/30/20 13:13 Total Bilirubin 0.50 mg/dL (0.1-1.2) 12/31/20 05:02 Direct Bilirubin < 0.2 mg/dL (0-0.2) 12/27/20 17:34 Indirect Bilirubin 0.2 mg/dL 12/27/20 17:34 AST 19 units/L (5-40) 12/31/20 05:02 ALT 12 units/L (7-56) 12/31/20 05:02 Alkaline Phosphatase 72 units/L (35-129) 12/31/20 05:02 Ammonia 21.0 umol/L (25-60) L 12/30/20 13:13 Total Protein 7.1 g/dL (6.3-8.2) 12/31/20 05:02 Albumin 3.7 g/dL (3.9-5) L 12/31/20 05:02 Albumin/Globulin Ratio 1.1 % 12/31/20 05:02 Urine Color Straw (Yellow) 12/28/20 02:15 Urine Turbidity Clear (Clear) 12/28/20 02:15 Urine pH 5.0 (5.0-7.0) 12/28/20 02:15 Ur Specific Epps 1.025 (1.003-1.030) 12/28/20 02:15 Urine Protein 100 mg/dl mg/dL (Negative) 12/28/20 02:15 Urine Glucose (UA) Negative mg/dL (Negative) 12/28/20 02:15 Urine Ketones Negative mg/dL (Negative) 12/28/20 02:15 Urine Blood Small (Negative) A 12/28/20 02:15 Urine Nitrite Negative (Negative) 12/28/20 02:15 Ur Reducing Substances Not Reportable 12/28/20 02:15 Urine Bilirubin Negative (Negative) 12/28/20 02:15 Urine Ictotest Not Reportable 12/28/20 02:15 Urine Urobilinogen < 2.0 mg/dL (<2.0) 12/28/20 02:15 Ur Leukocyte Esterase Negative (Negative) 12/28/20 02:15 Urine WBC (Auto) 3.0 /HPF (0.0-6.0) 12/28/20 02:15 Urine RBC (Auto) 4.0 /HPF (0.0-6.0) 12/28/20 02:15 U Epithel Cells (Auto) < 1.0 /HPF (0-13.0) 12/28/20 02:15 Hyaline Casts 1 /LPF 12/28/20 02:15 Granular Casts 1 /LPF 12/28/20 02:15 Urine Mucus Few /HPF 12/28/20 02:15 Salicylates < 0.3 mg/dL (2.8-20.0) L 12/27/20 17:34 Urine Opiates Screen Negative 12/27/20 17:11 Urine Methadone Screen Negative 12/27/20 17:11 Acetaminophen 5.0 ug/mL (10.0-30.0) L 12/27/20 17:34 Ur Barbiturates Screen Negative 12/27/20 17:11 Ur Phencyclidine Scrn Negative 12/27/20 17:11 Ur Amphetamines Screen Negative 12/27/20 17:11 U Benzodiazepines Scrn Negative 12/27/20 17:11 Urine Cocaine Screen Negative 12/27/20 17:11 U Marijuana (THC) Screen Negative 12/27/20 17:11 Drugs of Abuse Note Disclamer 12/27/20 17:11 Plasma/Serum Alcohol < 0.01 % (0-0.07) 12/27/20 17:34 Microbiology: Microbiology 12/30/20 13:13 Peripheral/Venous Blood Culture - Preliminary NO GROWTH AFTER 24 HOURS 12/30/20 13:13 Peripheral/Venous Blood Culture - Preliminary NO GROWTH AFTER 24 HOURS [place]/IV: Voiding Method Indwelling Catheter Active Medications - Current Medications Current Medications: Generic Name Dose Route Start Last Admin Trade Name Freq PRN Reason Stop Dose Admin Acetaminophen 650 mg 12/27/20 22:21 12/29/20 05:16 Acetaminophen 325 Mg Tab PO 650 mg Q4H PRN Administration Pain MILD(1-3)/Fever >100.5/CARRERA Al Hydrox/Mg Hydrox/Simethicone 30 ml 12/27/20 22:21 Alum-Mag Hydroxide-Simethicone [phone]/5ml Oral Liqd 30 Ml PO Q4H PRN Indigestion Amlodipine Besylate 2.5 mg 12/29/20 10:00 01/01/21 10:28 Amlodipine 5 Mg Tab PO 2.5 mg QDAY CHELLE Administration Aspirin 81 mg 12/29/20 10:00 01/01/21 10:28 Aspirin 81 Mg Tab Chew PO 81 mg QDAY CHELLE Administration Atorvastatin Calcium 40 mg 12/29/20 22:00 12/31/20 22:28 Atorvastatin 40 Mg Tab PO 40 mg QHS CHELLE Administration Cyanocobalamin 1,000 mcg 12/31/20 15:00 01/01/21 10:28 Cyanocobalamin (Vit B-12) 1000 Mcg Tab PO 1,000 mcg QDAY CHELLE Administration Enoxaparin Sodium 40 mg 12/28/20 10:00 01/01/21 10:28 Enoxaparin 40 Mg/0.4 Ml Inj SUB-Q 40 mg QDAY CHELLE Administration Hydralazine HCl 5 mg 12/27/20 22:35 12/29/20 12:05 Hydralazine 20 Mg/1 Ml Inj IV 5 mg Q4H PRN Administration Hypertension Hydrochlorothiazide 25 mg 12/29/20 10:00 01/01/21 10:28 Hydrochlorothiazide 25 Mg Tab PO 25 mg QDAY CHELLE Administration Ceftriaxone Sodium 2 gm in 100 mls @ 200 mls/hr 12/28/20 10:00 01/01/21 10:29 Rocephin/Ns 2 Gm/100 Ml IV 200 mls/hr DAILY CHELLE Administration Protocol Acyclovir 1,000 mg/ Sodium 120 mls @ 100 mls/hr 12/28/20 14:30 01/01/21 05:45 Chloride IV 100 mls/hr Q8HR CHELLE Administration Protocol Sodium Chloride 1,000 mls @ 125 mls/hr 12/30/20 23:30 01/01/21 05:51 Nacl 0.9% 1000 Ml IV 125 mls/hr DIRECT CHELLE Administration Folic Acid 1 mg/ Multivitamins 1,011.2 mls @ 125 mls/hr 12/31/20 14:00 12/31/20 17:38 /Minerals 10 ml/ Thiamine HCl IV 125 mls/hr 100 mg/ Sodium Chloride Q24H CHELLE Administration Levetiracetam 1,000 mg 12/31/20 22:00 01/01/21 10:28 Levetiracetam 500 Mg Tab PO 1,000 mg BID CHELLE Administration Lorazepam 2 mg 12/30/20 11:00 12/30/20 22:21 Lorazepam 2 Mg/Ml Vial IV 2 mg Q1HR PRN Administration CIWA-Ar 8-15 Lorazepam 4 mg 12/30/20 11:00 Lorazepam 2 Mg/Ml Vial IV Q1HR PRN CIWA-Ar 16-25 Magnesium Hydroxide 30 ml 12/27/20 22:21 Magnesium Hydroxide (Mom) Oral Liqd Udc PO Q4H PRN Constipation Naloxone HCl 0.1 mg 12/27/20 22:21 Naloxone 0.4 Mg/1 Ml Inj IV Q2MIN PRN Res Rate </= 8 or 02 SAT < 92% Ondansetron HCl 4 mg 12/27/20 22:21 Ondansetron 4 Mg/2 Ml Inj IV Q8H PRN Nausea And Vomiting Risperidone 1 mg 12/31/20 22:00 01/01/21 10:28 Risperidone 1 Mg Tab PO 1 mg BID CHELLE Administration Sodium Chloride 10 ml 12/28/20 10:00 01/01/21 10:29 Sodium Chloride 0.9% 10 Ml Flush Syringe IV 10 ml BID CHELLE Administration Sodium Chloride 10 ml 12/27/20 22:21 Sodium Chloride 0.9% 10 Ml Flush Syringe IV PRN PRN LINE FLUSH
--- NOTE | 2021-01-01 10:53 | Electrocardiograph Report ---
[facility] Test Date: 2020-12-28 Test Time: 10:18:25 Pat Name: KENZIE FIGUEREDO Department: Room: A469 1 Gender: M [employer] Driver: MARK : 1960 Requested By: MICHAEL SU Order Number: [id number] Reading MD: Nithin Mcnamara Measurements Intervals [place] Rate: 79 P: 38 OK: 167 QRS: 31 QRSD: 101 T: 34 QT: 339 QTc: 388 Interpretive Statements Sinus rhythm Incomplete right bundle branch block No previous ECG available for comparison Electronically Signed On 01-01-2021 10:53:19 EDT by Nithin Mcnamara
--- NOTE | 2021-01-01 13:31 | Progress Note ---
Assessment and Plan # Acute encephalopathy improved he is more interactive but disoriented -r/o infection -LP is pending as well as MRI brain need to do with Gd -CT of the head and urine drug test-negative -Chest x-ray negative for acute finding -EEG from 12/27 showed diffuse slowing is suggestive of encephalopathy. #Hyponatremia -hyponaremia mild-likely 2/2 dehydration -continue IV hydration # Hypertension -Unknow BP diagnosis -Monitor blood pressure -PRN Hydralazine #ETOH abuse -no clear Hx # DVT prophylaxis -Subcutaneous Lovenox will follow Subjective Date of service: 01/01/21 Principal diagnosis: AMS fever Interval history: AMS History of present illness: patient is seen in ED at bedside. patient name and age Unknown. per Ed record patient was brought to ED via EMS. Per EMS patient was found in the [place] and brought in for evaluation. Patient still unresponsive verbal and tactile stimuli. However, respiration is even and all unlabored. Blood pressure 168/88, oxygen saturation on 2 L 99%, respiration 19 and heart rate 73. CT of the head was done and is negative. Chest x-ray done is negative, urine drug screen showed negative for illicit drug, and blood work showed no acute finding. MRI of the brain ordered lactic acid ordered and elevated. Will start patient on empiric antibiotic and IV hydration. Today pt. is still obtunded follow only simple command LP is pending as well as MRI brain he is on Acyclovir IV Today he is more alert interactive still disoriented to place and date not recall his birthdate, no aphasia , move all limbs Objective - Vital Sign Vital Signs - 12hr 01/01/21 01/01/21 01/01/21 03:37 07:17 11:03 Temperature 98.6 F 97.5 F L 97.5 F L Pulse Rate 60 76 69 Respiratory 18 20 20 Rate Blood Pressure 118/71 118/70 117/63 O2 Sat by Pulse 98 92 96 Oximetry - General Apperance Constitutional: comfortable - EENT EENT: PERRL, mucous membranes moist - Respiratory Respiratory: chest non-tender, lungs clear, rhonchi - Cardiovascular Cardiovascular: regular rate, normal S1, normal S2 Extremities: no peripheral edema bilat, no clubbing, cyanosis - Gastrointestinal Gastrointestinal: normoactive bowel sounds - Integumentary Integumentary: normal - Neurologic Cranial nerve examination: PERRL, EOMI, intact Speech examination: intact Detailed motor examination: grossly full strength in - Laboratory Findings CBC and BMP: 12/31/20 05:02 12/31/20 05:02 Abnormal Lab Findings: Abnormal Labs 12/27/20 12/27/20 12/27/20 17:34 17:34 17:34 RBC 5.21 H Hgb Hct MCV 71 L MCH 23 L RDW 17.1 H Lymph % (Auto) 6.4 L Lymph # (Auto) 0.7 L Seg Neutrophils % 89.0 H Seg Neuts % (Manual) Seg Neutrophils # 9.5 H Seg Neutrophils # Man Sodium 135 L Potassium Carbon Dioxide 20 L BUN Creatinine 0.7 L Glucose 104 H POC Glucose Lactic Acid Ammonia Albumin Urine Blood Salicylates < 0.3 L Acetaminophen 12/27/20 12/27/20 12/28/20 17:34 23:44 01:17 RBC Hgb Hct MCV MCH RDW Lymph % (Auto) Lymph # (Auto) Seg Neutrophils % Seg Neuts % (Manual) Seg Neutrophils # Seg Neutrophils # Man Sodium Potassium Carbon Dioxide BUN Creatinine Glucose POC Glucose 131 H Lactic Acid 3.70 H* Ammonia Albumin Urine Blood Salicylates Acetaminophen 5.0 L 12/28/20 12/28/20 12/28/20 02:15 04:38 04:38 RBC Hgb 11.2 L Hct 34.6 L MCV 70 L MCH 23 L RDW 16.7 H Lymph % (Auto) Lymph # (Auto) Seg Neutrophils % Seg Neuts % (Manual) 81.0 H Seg Neutrophils # Seg Neutrophils # Man 8.4 H Sodium 136 L Potassium Carbon Dioxide BUN Creatinine Glucose 101 H POC Glucose Lactic Acid Ammonia Albumin Urine Blood Small A Salicylates Acetaminophen 12/28/20 12/28/20 12/28/20 04:38 07:35 22:17 RBC Hgb Hct MCV MCH RDW Lymph % (Auto) Lymph # (Auto) Seg Neutrophils % Seg Neuts % (Manual) Seg Neutrophils # Seg Neutrophils # Man Sodium Potassium Carbon Dioxide BUN Creatinine Glucose POC Glucose 115 H 110 H Lactic Acid 2.50 H* Ammonia Albumin Urine Blood Salicylates Acetaminophen 12/29/20 12/29/20 12/29/20 00:14 05:41 05:41 RBC 5.20 H Hgb Hct MCV 70 L MCH 23 L RDW 16.3 H Lymph % (Auto) Lymph # (Auto) Seg Neutrophils % Seg Neuts % (Manual) Seg Neutrophils # Seg Neutrophils # Man Sodium Potassium 3.3 L Carbon Dioxide 20 L D BUN Creatinine Glucose 139 H POC Glucose 112 H Lactic Acid Ammonia Albumin Urine Blood Salicylates Acetaminophen 12/30/20 12/30/20 12/30/20 05:31 05:31 13:13 RBC 5.23 H Hgb Hct MCV 70 L MCH 23 L RDW 16.3 H Lymph % (Auto) Lymph # (Auto) Seg Neutrophils % Seg Neuts % (Manual) Seg Neutrophils # Seg Neutrophils # Man Sodium Potassium 3.1 L Carbon Dioxide BUN 8 L Creatinine 0.6 L Glucose 102 H POC Glucose Lactic Acid Ammonia 21.0 L Albumin Urine Blood Salicylates Acetaminophen 12/31/20 12/31/20 05:02 05:02 RBC 5.38 H Hgb Hct MCV 70 L MCH 23 L RDW 15.9 H Lymph % (Auto) Lymph # (Auto) Seg Neutrophils % Seg Neuts % (Manual) Seg Neutrophils # Seg Neutrophils # Man Sodium Potassium 3.2 L Carbon Dioxide BUN Creatinine 0.7 L Glucose POC Glucose Lactic Acid Ammonia Albumin 3.7 L Urine Blood Salicylates Acetaminophen
[2021-01-01] MEDS: MULTIPLE VITAMIN IV SCH (14:40)
[2021-01-01] MEDS: [UNRECOGNIZED DRUG - OTHER] IV SCH (14:40)
[2021-01-01] MEDS: FOLIC ACID IV SCH (14:40)
[2021-01-01] MEDS: THIAMINE IV SCH (14:40)
[2021-01-02] MEDS: ACYCLOVIR 1,000 MG in SODIUM CHLORIDE 0.9% 100 ML IV SCH ×3 (05:53→22:57)
--- NOTE | 2021-01-02 08:46 | Progress Note ---
Assessment and Plan Assessment and plan: Assessment and plan: patient is seen in ED at bedside. patient name and age Unknown. per Ed record patient was brought to ED via EMS. Per EMS patient was found in the aguirre and brought in for evaluation. Patient still unresponsive verbal and tactile stimuli. However, respiration is even and all unlabored. Blood pressure 168/88, oxygen saturation on 2 L 99%, respiration 19 and heart rate 73. CT of the head was done and is negative. Chest x-ray done is negative, urine drug screen showed negative for illicit drug, and blood work showed no acute finding. MRI of the brain ordered lactic acid ordered an elevated. Will start patient on empiric antibiotic and IV hydration. Discussed plan of care with the attending Dr. Chapman. Neurologist consulted. Patient has no family/no contact number on file to obtain consent for LP/MRI Patient is also severely agitated and restrained, radiology report unable to do LP/MRI due to above reasons. --Acute metabolic ncephalopathy CT of the head and urine drug test-negative MRI of brain ordered Chest x-ray negative for acute finding Consulted neurologist --Hyponatremia/resolved hyponaremia mild-likely 2/2 dehydration continue IV hydration -- Hypertension Continue current antihypertensives. Monitor blood pressure PRN Hydralazine -- Possible Seizure disorder Seizure precautions, antiepileptic medications, possible EEG, neurology consult --?ETOH abuse thiamine, folic acid Closely monitor for alcohol withdrawal symptoms. --History of schizophrenia Continue psych medications psych consulted Closely monitor --DVT prophylaxis Subcutaneous Lovenox We will closely monitor the patient and adjust management as needed Driver/Sales Workers recommendations noted and appreciated Daily Hospital course: 12/28: Patient now with fever of unknown origin. Still confused discussed with ID will obtain lumbar puncture. 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 MRI is pending. 12/29: Still with low grade fever, continue abx, follow cultures, LP to be done on thursday due to no Radiologist, Neurology input noted. Swallow eval ok, continue diet. start on HCTZ and Norvasc for HTN. No history on patient available here yet.] Want CT of the head read as negative during neurologist did review any suspect an acute ischemic stroke starting the patient on aspirin 81 mg daily unfortunately this was not started yesterday not sure why but will start that today. EEG is also ordered for possible subclinical seizures. He refused an ABG. Continue restraints as 12/30: Patient still with confusion, I wonder if he has some etoh issues, will go ahead and start on CIWA protocol in addition to Banana bag. CONTINUE restraints. 12/31: I was able to obtain records from [facility] as patient was recently admitted there on December 20 he was discharged on vitamin B12 1000 mcg daily, ferrous sulfate 325 mg twice a day and Keppra 1000 mg every 12 hours in addition to rest. Do not 1 tablet 2 times a day of 2 mg each. He does have underlying schizophrenia prior history of cocaine abuse and also history of seizure disorder and severe neurocognitive disorder. His court appointed [employer] agent is Grace Padilla phone #[phone]. At the time of his discharge from [place] he was supposed to be placed in a personal group home as he has a history of wandering. I am not sure if this was done. As he was brought to us "found in the aguir[place]". Clinically he is showing some improvement but with the new information will obtain psych consultation. 01/01; could not do the MRI/LP due to his severe agitation And noncooperation, will try MRI study again tomorrow with Ativan 01/02; radiology cannot do lumbar puncture/MRI study due to patient's severe agitation requiring four-point restraints And no family/personnel adviser available to consent for the above tests when patient is calm and stable History Interval history: I have seen and examined the patient at the bedside Patient continues to be agitated, confused requiring restraints for safety Radiologist/tech called me and reported that MRI /LP cannot be done due to patient's agitation requiring restraints Confusion, no family to give consent. We will check with case management to address any family members if available Patient remains confused and agitated In four-point restraints for safety Hospitalist Physical - Constitutional Vitals: Temp Pulse Resp BP Pulse Ox 98.3 F 49 L 18 119/67 95 01/02/21 03:06 01/02/21 03:06 01/02/21 03:06 01/02/21 03:06 01/02/21 03:06 General appearance: Present: no acute distress, well-nourished, obese - EENT Eyes: Present: PERRL, EOM intact - Neck Neck: Present: supple, normal ROM - Respiratory Respiratory effort: normal Respiratory: bilateral: diminished, negative: rales, rhonchi, wheezing - Cardiovascular Rhythm: regular Heart Sounds: Present: S1 & S2 - Extremities Extremities: no ischemia, No edema - Abdominal General gastrointestinal: soft, non-tender, non-distended, normal bowel sounds - Integumentary Integumentary: Present: clear, warm - Psychiatric Psychiatric: agitated, other - Neurologic Neurologic: moves all extremities (Restrained), other (Restrained) Results - Labs CBC & Chem 7: 12/31/20 05:02 12/31/20 05:02 Labs: Laboratory Last Values WBC 7.1 K/mm3 (4.5-11.0) 12/31/20 05:02 RBC 5.38 M/mm3 (3.65-5.03) H 12/31/20 05:02 Hgb 12.1 gm/dl (11.8-15.2) 12/31/20 05:02 Hct 37.7 % (35.5-45.6) 12/31/20 05:02 MCV 70 fl (84-94) L 12/31/20 05:02 MCH 23 pg (28-32) L 12/31/20 05:02 MCHC 32 % (32-34) 12/31/20 05:02 RDW 15.9 % (13.2-15.2) H 12/31/20 05:02 Plt Count 234 K/mm3 (140-440) 12/31/20 05:02 Lymph % (Auto) 6.4 % (13.4-35.0) L 12/27/20 17:34 [place] % (Auto) 3.9 % (0.0-7.3) 12/27/20 17:34 Eos % (Auto) 0.2 % (0.0-4.3) 12/27/20 17:34 Baso % (Auto) 0.5 % (0.0-1.8) 12/27/20 17:34 Lymph # (Auto) 0.7 K/mm3 (1.2-5.4) L 12/27/20 17:34 [place] # (Auto) 0.4 K/mm3 (0.0-0.8) 12/27/20 17:34 Eos # (Auto) 0.0 K/mm3 (0.0-0.4) 12/27/20 17:34 Baso # (Auto) 0.1 K/mm3 (0.0-0.1) 12/27/20 17:34 Add Manual Diff Complete 12/28/20 04:38 Total Counted 100 12/28/20 04:38 Seg Neutrophils % 89.0 % (40.0-70.0) H 12/27/20 17:34 Seg Neuts % (Manual) 81.0 % (40.0-70.0) H 12/28/20 04:38 Band Neutrophils % 1.0 % 12/28/20 04:38 Lymphocytes % (Manual) 14.0 % (13.4-35.0) 12/28/20 04:38 Monocytes % (Manual) 4.0 % (0.0-7.3) 12/28/20 04:38 Nucleated RBC % Not Reportable 12/28/20 04:38 Seg Neutrophils # 9.5 K/mm3 (1.8-7.7) H 12/27/20 17:34 Seg Neutrophils # Man 8.4 K/mm3 (1.8-7.7) H 12/28/20 04:38 Band Neutrophils # 0.1 K/mm3 12/28/20 04:38 Lymphocytes # (Manual) 1.5 K/mm3 (1.2-5.4) 12/28/20 04:38 Abs React Lymphs (Man) 0.0 K/mm3 12/28/20 04:38 Monocytes # (Manual) 0.4 K/mm3 (0.0-0.8) 12/28/20 04:38 Eosinophils # (Manual) 0.0 K/mm3 (0.0-0.4) 12/28/20 04:38 Basophils # (Manual) 0.0 K/mm3 (0.0-0.1) 12/28/20 04:38 Metamyelocytes # 0.0 K/mm3 12/28/20 04:38 Myelocytes # 0.0 K/mm3 12/28/20 04:38 Promyelocytes # 0.0 K/mm3 12/28/20 04:38 Blast Cells # 0.0 K/mm3 12/28/20 04:38 WBC Morphology Not Reportable 12/28/20 04:38 Hypersegmented Neuts Not Reportable 12/28/20 04:38 Hyposegmented Neuts Not Reportable 12/28/20 04:38 Hypogranular Neuts Not Reportable 12/28/20 04:38 Smudge Cells Not Reportable 12/28/20 04:38 Toxic Granulation Not Reportable 12/28/20 04:38 Toxic Vacuolation Not Reportable 12/28/20 04:38 Dohle Bodies Not Reportable 12/28/20 04:38 Pelger-Huet Anomaly Not Reportable 12/28/20 04:38 Diana Rods Not Reportable 12/28/20 04:38 Platelet Estimate Consistent w auto 12/28/20 04:38 Clumped Platelets Not Reportable 12/28/20 04:38 Plt Clumps, EDTA Not Reportable 12/28/20 04:38 Large Platelets Not Reportable 12/28/20 04:38 Giant Platelets Not Reportable 12/28/20 04:38 Platelet Satelliting Not Reportable 12/28/20 04:38 Plt Morphology Comment Not Reportable 12/28/20 04:38 RBC Morphology Not Reportable 12/28/20 04:38 Dimorphic RBCs Not Reportable 12/28/20 04:38 Polychromasia Not Reportable 12/28/20 04:38 Hypochromasia 1+ 12/28/20 04:38 Poikilocytosis Not Reportable 12/28/20 04:38 Anisocytosis Not Reportable 12/28/20 04:38 Microcytosis 1+ 12/28/20 04:38 Macrocytosis Not Reportable 12/28/20 04:38 Spherocytes Not Reportable 12/28/20 04:38 Pappenheimer Bodies Not Reportable 12/28/20 04:38 Sickle Cells Not Reportable 12/28/20 04:38 Target Cells Not Reportable 12/28/20 04:38 Tear Drop Cells Not Reportable 12/28/20 04:38 Ovalocytes 1+ 12/28/20 04:38 Helmet Cells Not Reportable 12/28/20 04:38 [place] Bodies Not Reportable 12/28/20 04:38 [place] Rings Not Reportable 12/28/20 04:38 [place] Cells Not Reportable 12/28/20 04:38 Bite Cells Not Reportable 12/28/20 04:38 Crenated Cell Not Reportable 12/28/20 04:38 Elliptocytes Not Reportable 12/28/20 04:38 Acanthocytes (Spur) Not Reportable 12/28/20 04:38 Rouleaux Not Reportable 12/28/20 04:38 Hemoglobin C Crystals Not Reportable 12/28/20 04:38 Schistocytes Not Reportable 12/28/20 04:38 Malaria parasites Not Reportable 12/28/20 04:38 [place] Bodies Not Reportable 12/28/20 04:38 Hem Pathologist Commnt No 12/28/20 04:38 Sodium 143 mmol/L (137-145) 12/31/20 05:02 Potassium 3.2 mmol/L (3.6-5.0) L 12/31/20 05:02 Chloride 106.5 mmol/L (98-107) 12/31/20 05:02 Carbon Dioxide 24 mmol/L (22-30) 12/31/20 05:02 Anion Gap 16 mmol/L 12/31/20 05:02 BUN 11 mg/dL (9-20) 12/31/20 05:02 Creatinine 0.7 mg/dL (0.8-1.3) L 12/31/20 05:02 Estimated GFR > 60 ml/min 12/31/20 05:02 BUN/Creatinine Ratio 16 % 12/31/20 05:02 Glucose 90 mg/dL (75-100) 12/31/20 05:02 POC Glucose 112 mg/dL (70-105) H 12/29/20 00:14 Lactic Acid 1.30 mmol/L (0.7-2.0) 12/28/20 08:13 Calcium 8.8 mg/dL (8.4-10.2) 12/31/20 05:02 Phosphorus 3.70 mg/dL (2.5-4.5) 12/30/20 13:13 Magnesium 2.10 mg/dL (1.7-2.3) 12/30/20 13:13 Total Bilirubin 0.50 mg/dL (0.1-1.2) 12/31/20 05:02 Direct Bilirubin < 0.2 mg/dL (0-0.2) 12/27/20 17:34 Indirect Bilirubin 0.2 mg/dL 12/27/20 17:34 AST 19 units/L (5-40) 12/31/20 05:02 ALT 12 units/L (7-56) 12/31/20 05:02 Alkaline Phosphatase 72 units/L (35-129) 12/31/20 05:02 Ammonia 21.0 umol/L (25-60) L 12/30/20 13:13 Total Protein 7.1 g/dL (6.3-8.2) 12/31/20 05:02 Albumin 3.7 g/dL (3.9-5) L 12/31/20 05:02 Albumin/Globulin Ratio 1.1 % 12/31/20 05:02 Urine Color Straw (Yellow) 12/28/20 02:15 Urine Turbidity Clear (Clear) 12/28/20 02:15 Urine pH 5.0 (5.0-7.0) 12/28/20 02:15 Ur Specific [place] 1.025 (1.003-1.030) 12/28/20 02:15 Urine Protein 100 mg/dl mg/dL (Negative) 12/28/20 02:15 Urine Glucose (UA) Negative mg/dL (Negative) 12/28/20 02:15 Urine Ketones Negative mg/dL (Negative) 12/28/20 02:15 Urine Blood Small (Negative) A 12/28/20 02:15 Urine Nitrite Negative (Negative) 12/28/20 02:15 Ur Reducing Substances Not Reportable 12/28/20 02:15 Urine Bilirubin Negative (Negative) 12/28/20 02:15 Urine Ictotest Not Reportable 12/28/20 02:15 Urine Urobilinogen < 2.0 mg/dL (<2.0) 12/28/20 02:15 Ur Leukocyte Esterase Negative (Negative) 12/28/20 02:15 Urine WBC (Auto) 3.0 /HPF (0.0-6.0) 12/28/20 02:15 Urine RBC (Auto) 4.0 /HPF (0.0-6.0) 12/28/20 02:15 U Epithel Cells (Auto) < 1.0 /HPF (0-13.0) 12/28/20 02:15 Hyaline Casts 1 /LPF 12/28/20 02:15 Granular Casts 1 /LPF 12/28/20 02:15 Urine Mucus Few /HPF 12/28/20 02:15 Salicylates < 0.3 mg/dL (2.8-20.0) L 12/27/20 17:34 Urine Opiates Screen Negative 12/27/20 17:11 Urine Methadone Screen Negative 12/27/20 17:11 Acetaminophen 5.0 ug/mL (10.0-30.0) L 12/27/20 17:34 Ur Barbiturates Screen Negative 12/27/20 17:11 Ur Phencyclidine Scrn Negative 12/27/20 17:11 Ur Amphetamines Screen Negative 12/27/20 17:11 U Benzodiazepines Scrn Negative 12/27/20 17:11 Urine Cocaine Screen Negative 12/27/20 17:11 U Marijuana (THC) Screen Negative 12/27/20 17:11 Drugs of Abuse Note Disclamer 12/27/20 17:11 Plasma/Serum Alcohol < 0.01 % (0-0.07) 12/27/20 17:34 Microbiology: Microbiology 12/30/20 13:13 Peripheral/Venous Blood Culture - Preliminary NO GROWTH AFTER 48 HOURS 12/30/20 13:13 Peripheral/Venous Blood Culture - Preliminary NO GROWTH AFTER 48 HOURS [place]/IV: Voiding Method Condom Catheter Active Medications - Current Medications Current Medications: Generic Name Dose Route Start Last Admin Trade Name Freq PRN Reason Stop Dose Admin Acetaminophen 650 mg 12/27/20 22:21 12/29/20 05:16 Acetaminophen 325 Mg Tab PO 650 mg Q4H PRN Administration Pain MILD(1-3)/Fever >100.5/CARRERA Al Hydrox/Mg Hydrox/Simethicone 30 ml 12/27/20 22:21 Alum-Mag Hydroxide-Simethicone 016-181-01fo/5ml Oral Liqd 30 Ml PO Q4H PRN Indigestion Amlodipine Besylate 2.5 mg 12/29/20 10:00 01/01/21 10:28 Amlodipine 5 Mg Tab PO 2.5 mg QDAY CHELLE Administration Aspirin 81 mg 12/29/20 10:00 01/01/21 10:28 Aspirin 81 Mg Tab Chew PO 81 mg QDAY CHELLE Administration Atorvastatin Calcium 40 mg 12/29/20 22:00 01/01/21 22:55 Atorvastatin 40 Mg Tab PO 40 mg QHS CHELLE Administration Cyanocobalamin 1,000 mcg 12/31/20 15:00 01/01/21 10:28 Cyanocobalamin (Vit B-12) 1000 Mcg Tab PO 1,000 mcg QDAY CHELLE Administration Enoxaparin Sodium 40 mg 12/28/20 10:00 01/01/21 10:28 Enoxaparin 40 Mg/0.4 Ml Inj SUB-Q 40 mg QDAY CHELLE Administration Hydralazine HCl 5 mg 12/27/20 22:35 12/29/20 12:05 Hydralazine 20 Mg/1 Ml Inj IV 5 mg Q4H PRN Administration Hypertension Hydrochlorothiazide 25 mg 12/29/20 10:00 01/01/21 10:28 Hydrochlorothiazide 25 Mg Tab PO 25 mg QDAY CHELLE Administration Ceftriaxone Sodium 2 gm in 100 mls @ 200 mls/hr 12/28/20 10:00 01/01/21 10:29 Rocephin/Ns 2 Gm/100 Ml IV 200 mls/hr DAILY CHELLE Administration Protocol Acyclovir 1,000 mg/ Sodium 120 mls @ 100 mls/hr 12/28/20 14:30 01/02/21 05:53 Chloride IV 100 mls/hr Q8HR CHELLE Administration Protocol Sodium Chloride 1,000 mls @ 125 mls/hr 12/30/20 23:30 01/01/21 23:38 Nacl 0.9% 1000 Ml IV 125 mls/hr DIRECT CHELLE Administration Folic Acid 1 mg/ Multivitamins 1,011.2 mls @ 125 mls/hr 12/31/20 14:00 01/01/21 14:40 /Minerals 10 ml/ Thiamine HCl IV 125 mls/hr 100 mg/ Sodium Chloride Q24H CHELLE Administration Levetiracetam 1,000 mg 12/31/20 22:00 01/01/21 22:55 Levetiracetam 500 Mg Tab PO 1,000 mg BID CHELLE Administration Lorazepam 2 mg 12/30/20 11:00 12/30/20 22:21 Lorazepam 2 Mg/Ml Vial IV 2 mg Q1HR PRN Administration CIWA-Ar 8-15 Lorazepam 4 mg 12/30/20 11:00 Lorazepam 2 Mg/Ml Vial IV Q1HR PRN CIWA-Ar 16-25 Magnesium Hydroxide 30 ml 12/27/20 22:21 Magnesium Hydroxide (Mom) Oral Liqd Udc PO Q4H PRN Constipation Naloxone HCl 0.1 mg 12/27/20 22:21 Naloxone 0.4 Mg/1 Ml Inj IV Q2MIN PRN Res Rate </= 8 or 02 SAT < 92% Ondansetron HCl 4 mg 12/27/20 22:21 Ondansetron 4 Mg/2 Ml Inj IV Q8H PRN Nausea And Vomiting Risperidone 1 mg 12/31/20 22:00 01/01/21 22:55 Risperidone 1 Mg Tab PO 1 mg BID CHELLE Administration Sodium Chloride 10 ml 12/28/20 10:00 01/01/21 22:55 Sodium Chloride 0.9% 10 Ml Flush Syringe IV 10 ml BID CHELLE Administration Sodium Chloride 10 ml 12/27/20 22:21 Sodium Chloride 0.9% 10 Ml Flush Syringe IV PRN PRN LINE FLUSH
[2021-01-02] MEDS: ENOXAPARIN 40 MG/0.4 ML INJ SUB-Q SCH (09:29)
[2021-01-02] MEDS: hydroCHLOROthiazide 25 MG TAB PO SCH (09:29)
[2021-01-02] MEDS: ASPIRIN 81 MG TAB CHEW PO SCH (09:29)
[2021-01-02] MEDS: cefTRIAXone/NS 2 GM/100 ML 2 GM/100 ML BAG IV SCH (09:29)
[2021-01-02] MEDS: amLODIPine 5 MG TAB PO SCH (09:30)
[2021-01-02] MEDS: risperiDONE 1 MG TAB PO SCH ×2 (09:30→22:57)
[2021-01-02] MEDS: levETIRAcetam 500 MG TAB PO SCH ×2 (09:30→22:57)
[2021-01-02] MEDS: CYANOCOBALAMIN (VIT B-12) 1000 MCG TAB PO SCH (09:31)
[2021-01-02] MEDS: SODIUM CHLORIDE 0.9% 1000 ML 1,000 ML IV SCH (09:42)
--- NOTE | 2021-01-02 12:09 | Progress Note ---
Assessment and Plan # Acute encephalopathy improved he is more interactive but disoriented -r/o infection -LP is pending as well as MRI brain need to do with Gd -CT of the head and urine drug test-negative -Chest x-ray negative for acute finding -EEG from 12/27 showed diffuse slowing is suggestive of encephalopathy. #Hyponatremia -hyponaremia mild-likely 2/2 dehydration -continue IV hydration # Hypertension -Unknow BP diagnosis -Monitor blood pressure -PRN Hydralazine #ETOH abuse -no clear Hx # DVT prophylaxis -Subcutaneous Lovenox PLAN 1- Suggest MRI brain preferably with gd 2- LP ? doubt benefit now 3- follow with ID 4- he is on acyclovir 5- Pt therapy will follow after MRI is done Subjective Date of service: 01/02/21 Principal diagnosis: AMS fever Interval history: AMS History of present illness: patient is seen in ED at bedside. patient name and age Unknown. per Ed record patient was brought to ED via EMS. Per EMS patient was found in the [place] and brought in for evaluation. Patient still unresponsive verbal and tactile stimuli. However, respiration is even and all unlabored. Blood pressure 168/88, oxygen saturation on 2 L 99%, respiration 19 and heart rate 73. CT of the head was done and is negative. Chest x-ray done is negative, urine drug screen showed negative for illicit drug, and blood work showed no acute finding. MRI of the brain ordered lactic acid ordered and elevated. Will start patient on empiric antibiotic and IV hydration. Today pt. is still obtunded follow only simple command LP is pending as well as MRI brain he is on Acyclovir IV Today he is more alert interactive still disoriented to place and date not recall his birthdate, no aphasia , move all limbs Objective - Vital Sign Vital Signs - 12hr 01/02/21 01/02/21 01/02/21 03:06 08:42 08:43 Temperature 98.3 F 97.8 F Pulse Rate 49 L 54 L 48 L Respiratory 18 16 Rate Blood Pressure 119/67 135/75 O2 Sat by Pulse 95 97 96 Oximetry - General Apperance Constitutional: comfortable - EENT EENT: PERRL, mucous membranes moist - Respiratory Respiratory: chest non-tender, lungs clear, rhonchi - Cardiovascular Cardiovascular: regular rate, normal S1, normal S2 Extremities: no peripheral edema bilat, no clubbing, cyanosis - Gastrointestinal Gastrointestinal: normoactive bowel sounds - Integumentary Integumentary: normal - Neurologic Cranial nerve examination: intact Detailed motor examination: grossly full strength in - Laboratory Findings CBC and BMP: 12/31/20 05:02 12/31/20 05:02 Abnormal Lab Findings: Abnormal Labs 12/27/20 12/27/20 12/27/20 17:34 17:34 17:34 RBC 5.21 H Hgb Hct MCV 71 L MCH 23 L RDW 17.1 H Lymph % (Auto) 6.4 L Lymph # (Auto) 0.7 L Seg Neutrophils % 89.0 H Seg Neuts % (Manual) Seg Neutrophils # 9.5 H Seg Neutrophils # Man Sodium 135 L Potassium Carbon Dioxide 20 L BUN Creatinine 0.7 L Glucose 104 H POC Glucose Lactic Acid Ammonia Albumin Urine Blood Salicylates < 0.3 L Acetaminophen 12/27/20 12/27/20 12/28/20 17:34 23:44 01:17 RBC Hgb Hct MCV MCH RDW Lymph % (Auto) Lymph # (Auto) Seg Neutrophils % Seg Neuts % (Manual) Seg Neutrophils # Seg Neutrophils # Man Sodium Potassium Carbon Dioxide BUN Creatinine Glucose POC Glucose 131 H Lactic Acid 3.70 H* Ammonia Albumin Urine Blood Salicylates Acetaminophen 5.0 L 12/28/20 12/28/20 12/28/20 02:15 04:38 04:38 RBC Hgb 11.2 L Hct 34.6 L MCV 70 L MCH 23 L RDW 16.7 H Lymph % (Auto) Lymph # (Auto) Seg Neutrophils % Seg Neuts % (Manual) 81.0 H Seg Neutrophils # Seg Neutrophils # Man 8.4 H Sodium 136 L Potassium Carbon Dioxide BUN Creatinine Glucose 101 H POC Glucose Lactic Acid Ammonia Albumin Urine Blood Small A Salicylates Acetaminophen 12/28/20 12/28/20 12/28/20 04:38 07:35 22:17 RBC Hgb Hct MCV MCH RDW Lymph % (Auto) Lymph # (Auto) Seg Neutrophils % Seg Neuts % (Manual) Seg Neutrophils # Seg Neutrophils # Man Sodium Potassium Carbon Dioxide BUN Creatinine Glucose POC Glucose 115 H 110 H Lactic Acid 2.50 H* Ammonia Albumin Urine Blood Salicylates Acetaminophen 12/29/20 12/29/20 12/29/20 00:14 05:41 05:41 RBC 5.20 H Hgb Hct MCV 70 L MCH 23 L RDW 16.3 H Lymph % (Auto) Lymph # (Auto) Seg Neutrophils % Seg Neuts % (Manual) Seg Neutrophils # Seg Neutrophils # Man Sodium Potassium 3.3 L Carbon Dioxide 20 L D BUN Creatinine Glucose 139 H POC Glucose 112 H Lactic Acid Ammonia Albumin Urine Blood Salicylates Acetaminophen 12/30/20 12/30/20 12/30/20 05:31 05:31 13:13 RBC 5.23 H Hgb Hct MCV 70 L MCH 23 L RDW 16.3 H Lymph % (Auto) Lymph # (Auto) Seg Neutrophils % Seg Neuts % (Manual) Seg Neutrophils # Seg Neutrophils # Man Sodium Potassium 3.1 L Carbon Dioxide BUN 8 L Creatinine 0.6 L Glucose 102 H POC Glucose Lactic Acid Ammonia 21.0 L Albumin Urine Blood Salicylates Acetaminophen 12/31/20 12/31/20 05:02 05:02 RBC 5.38 H Hgb Hct MCV 70 L MCH 23 L RDW 15.9 H Lymph % (Auto) Lymph # (Auto) Seg Neutrophils % Seg Neuts % (Manual) Seg Neutrophils # Seg Neutrophils # Man Sodium Potassium 3.2 L Carbon Dioxide BUN Creatinine 0.7 L Glucose POC Glucose Lactic Acid Ammonia Albumin 3.7 L Urine Blood Salicylates Acetaminophen
[2021-01-02] MEDS: FOLIC ACID IV SCH (14:20)
[2021-01-02] MEDS: THIAMINE IV SCH (14:20)
[2021-01-02] MEDS: [UNRECOGNIZED DRUG - OTHER] IV SCH (14:20)
[2021-01-02] MEDS: MULTIPLE VITAMIN IV SCH (14:20)
--- NOTE | 2021-01-02 15:49 | Progress Note ---
Assessment and Plan Cultures: Blood cultures 12/30/2020 no growth so far A/P: 60 yo male, admitted after EMS found the patient in the [place], unresponsive: #Fever: Resolved. Etiology unclear. No leukocytosis. UA not impressive for UTI. Chest x-ray did not reveal any pneumonia. Patient was found in the [place], unresponsive. Mental status slowly getting better. No thrombocytopenia or transaminitis to suggest tickborne illness. Acute bacterial meningitis seems unlikely. #Acute encephalopathy: CT head without acute findings. urinary tox screen was negative. ? seizure (observed involunary jerking left am) ?ETOH withdrawal. 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 F/U MRI. LP pending. Would still obtain LP as positive result would be beneficial. Agree negative result probably not as could be sterilized by antibiotics already. Dasia Burk MD [facility] O: [phone] F: [phone] Subjective Date of service: 01/02/21 Principal diagnosis: AMS fever Interval history: Afebrile, normal white count. Objective - Exam Narrative Exam: General appearance: Alert in NAD pleasant Eyes: anicteric sclerae, moist conjunctivae; no lid-lag; PERRLA HENT: Normocephalic, Atraumatic; normal external ears, nares open, oropharynx clear with moist mucous membranes and no oral thrush Neck: supple, tracheal midline, no JVD Lungs: Clear to auscultation CV: RRR no murmur Abdomen: Soft nontender Extremities: no edema, no cyanosis Skin: No rash. Psych: no agitated Neuro: Alert, confused, nonverbal, left arm jerky - Constitutional Vitals: Vital Signs Temp Pulse Resp BP Pulse Ox 97.8 F 57 L 18 135/75 97 01/02/21 08:42 01/02/21 12:00 01/02/21 10:00 01/02/21 08:42 01/02/21 10:00 Temperature -Last 24 Hours Temperature 97.8 F Temperature 98.3 F Temperature 98.3 F Temperature 98.0 F - Labs CBC & Chem 7: 12/31/20 05:02 12/31/20 05:02
[2021-01-03] MEDS ORDERED: POTASSIUM CHLORIDE ER 20 MEQ TAB PO ONE (04:41)
[2021-01-03] MEDS: ACYCLOVIR 1,000 MG in SODIUM CHLORIDE 0.9% 100 ML IV SCH ×3 (06:35→22:01)
[2021-01-03] MEDS: cefTRIAXone/NS 2 GM/100 ML 2 GM/100 ML BAG IV SCH (11:03)
[2021-01-03] MEDS: ASPIRIN 81 MG TAB CHEW PO SCH (11:04)
[2021-01-03] MEDS: THIAMINE 100 MG TAB PO SCH (11:04)
[2021-01-03] MEDS: levETIRAcetam 500 MG TAB PO SCH ×2 (11:04→22:02)
[2021-01-03] MEDS: MULTIVITAMINS,THER W-MINERALS TAB PO SCH (11:04)
[2021-01-03] MEDS: risperiDONE 1 MG TAB PO SCH ×2 (11:04→22:02)
[2021-01-03] MEDS: amLODIPine 5 MG TAB PO SCH (11:05)
[2021-01-03] MEDS: FOLIC ACID 1 MG TAB PO SCH (11:05)
[2021-01-03] MEDS: ENOXAPARIN 40 MG/0.4 ML INJ SUB-Q SCH (11:05)
[2021-01-03] MEDS: CYANOCOBALAMIN (VIT B-12) 1000 MCG TAB PO SCH (11:05)
[2021-01-03] MEDS: hydroCHLOROthiazide 25 MG TAB PO SCH (11:05)
[2021-01-03] MEDS ORDERED: LORazepam 2 MG/ML VIAL IV NR (11:30)
--- NOTE | 2021-01-03 12:11 | Progress Note ---
Assessment and Plan # Acute encephalopathy improved he is more interactive but disoriented -r/o infection -LP is pending as well as MRI brain need to do with Gd -CT of the head and urine drug test-negative -Chest x-ray negative for acute finding -EEG from 12/27 showed diffuse slowing is suggestive of encephalopathy. #Hyponatremia -hyponaremia mild-likely 2/2 dehydration -continue IV hydration # Hypertension -Unknow BP diagnosis -Monitor blood pressure -PRN Hydralazine #ETOH abuse -no clear Hx # DVT prophylaxis -Subcutaneous Lovenox PLAN 1- Suggest MRI brain preferably with gd 2- LP ? doubt benefit now 3- follow with ID 4- he is on acyclovir 5- Pt therapy will follow after MRI is done !!! Subjective Date of service: 01/03/21 Principal diagnosis: AMS fever Interval history: AMS History of present illness: patient is seen in ED at bedside. patient name and age Unknown. per Ed record patient was brought to ED via EMS. Per EMS patient was found in the agu[place] and brought in for evaluation. Patient still unresponsive verbal and tactile sti muli. However, respiration is even and all unlabored. Blood pressure 168/88, oxygen saturation on 2 L 99%, respiration 19 and heart rate 73. CT of the head was done and is negative. Chest x-ray done is negative, urine drug screen showed negative for illicit drug, and blood work showed no acute finding. MRI of the brain ordered lactic acid ordered and elevated. Will start patient on empiric antibiotic and IV hydration. Today pt. is still obtunded follow only simple command LP is pending as well as MRI brain he is on Acyclovir IV Today he is more alert interactive still disoriented to place and date not recall his birthdate, no aphasia , move all limbs Objective - Vital Sign Vital Signs - 12hr 01/03/21 01/03/21 01/03/21 03:36 08:33 11:05 Temperature 98.1 F 98.6 F Pulse Rate 73 54 L 54 L Respiratory 18 18 Rate Blood Pressure 141/83 142/78 142/78 O2 Sat by Pulse 94 95 Oximetry - General Apperance Constitutional: comfortable - EENT EENT: PERRL, mucous membranes moist - Respiratory Respiratory: chest non-tender, lungs clear, rhonchi - Cardiovascular Cardiovascular: regular rate, normal S1, normal S2 Extremities: no peripheral edema bilat, no clubbing, cyanosis - Gastrointestinal Gastrointestinal: normoactive bowel sounds - Integumentary Integumentary: normal - Neurologic Cranial nerve examination: PERRL, EOMI, intact Speech examination: intact Detailed motor examination: grossly full strength in - Laboratory Findings CBC and BMP: 12/31/20 05:02 12/31/20 05:02 Abnormal Lab Findings: Abnormal Labs 12/27/20 12/27/20 12/27/20 17:34 17:34 17:34 RBC 5.21 H Hgb Hct MCV 71 L MCH 23 L RDW 17.1 H Lymph % (Auto) 6.4 L Lymph # (Auto) 0.7 L Seg Neutrophils % 89.0 H Seg Neuts % (Manual) Seg Neutrophils # 9.5 H Seg Neutrophils # Man Sodium 135 L Potassium Carbon Dioxide 20 L BUN Creatinine 0.7 L Glucose 104 H POC Glucose Lactic Acid Ammonia Albumin Urine Blood Salicylates < 0.3 L Acetaminophen 12/27/20 12/27/20 12/28/20 17:34 23:44 01:17 RBC Hgb Hct MCV MCH RDW Lymph % (Auto) Lymph # (Auto) Seg Neutrophils % Seg Neuts % (Manual) Seg Neutrophils # Seg Neutrophils # Man Sodium Potassium Carbon Dioxide BUN Creatinine Glucose POC Glucose 131 H Lactic Acid 3.70 H* Ammonia Albumin Urine Blood Salicylates Acetaminophen 5.0 L 12/28/20 12/28/20 12/28/20 02:15 04:38 04:38 RBC Hgb 11.2 L Hct 34.6 L MCV 70 L MCH 23 L RDW 16.7 H Lymph % (Auto) Lymph # (Auto) Seg Neutrophils % Seg Neuts % (Manual) 81.0 H Seg Neutrophils # Seg Neutrophils # Man 8.4 H Sodium 136 L Potassium Carbon Dioxide BUN Creatinine Glucose 101 H POC Glucose Lactic Acid Ammonia Albumin Urine Blood Small A Salicylates Acetaminophen 12/28/20 12/28/20 12/28/20 04:38 07:35 22:17 RBC Hgb Hct MCV MCH RDW Lymph % (Auto) Lymph # (Auto) Seg Neutrophils % Seg Neuts % (Manual) Seg Neutrophils # Seg Neutrophils # Man Sodium Potassium Carbon Dioxide BUN Creatinine Glucose POC Glucose 115 H 110 H Lactic Acid 2.50 H* Ammonia Albumin Urine Blood Salicylates Acetaminophen 12/29/20 12/29/20 12/29/20 00:14 05:41 05:41 RBC 5.20 H Hgb Hct MCV 70 L MCH 23 L RDW 16.3 H Lymph % (Auto) Lymph # (Auto) Seg Neutrophils % Seg Neuts % (Manual) Seg Neutrophils # Seg Neutrophils # Man Sodium Potassium 3.3 L Carbon Dioxide 20 L D BUN Creatinine Glucose 139 H POC Glucose 112 H Lactic Acid Ammonia Albumin Urine Blood Salicylates Acetaminophen 12/30/20 12/30/20 12/30/20 05:31 05:31 13:13 RBC 5.23 H Hgb Hct MCV 70 L MCH 23 L RDW 16.3 H Lymph % (Auto) Lymph # (Auto) Seg Neutrophils % Seg Neuts % (Manual) Seg Neutrophils # Seg Neutrophils # Man Sodium Potassium 3.1 L Carbon Dioxide BUN 8 L Creatinine 0.6 L Glucose 102 H POC Glucose Lactic Acid Ammonia 21.0 L Albumin Urine Blood Salicylates Acetaminophen 12/31/20 12/31/20 05:02 05:02 RBC 5.38 H Hgb Hct MCV 70 L MCH 23 L RDW 15.9 H Lymph % (Auto) Lymph # (Auto) Seg Neutrophils % Seg Neuts % (Manual) Seg Neutrophils # Seg Neutrophils # Man Sodium Potassium 3.2 L Carbon Dioxide BUN Creatinine 0.7 L Glucose POC Glucose Lactic Acid Ammonia Albumin 3.7 L Urine Blood Salicylates Acetaminophen
--- NOTE | 2021-01-03 13:34 | Progress Note ---
Assessment and Plan Cultures: Blood cultures 12/30/2020 no growth so far A/P: 60 yo male, admitted after EMS found the patient in the [place], unresponsive: #Fever: Resolved. Etiology unclear. No leukocytosis. UA not impressive for UTI. Chest x-ray did not reveal any pneumonia. Patient was found in the [place], unresponsive. Mental status slowly getting better. No thrombocytopenia or transaminitis to suggest tickborne illness. Acute bacterial meningitis seems unlikely. #Acute encephalopathy: CT head without acute findings. urinary tox screen was negative. ? seizure (observed involunary jerking left am) ?ETOH withdrawal. 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 F/U MRI. LP pending. Patient unable to give consent. Would focus on obtaining MRI if only one is able to be obtained. Dasia Burk MD [facility] O: [phone] F: [phone] Subjective Date of service: 01/03/21 Principal diagnosis: AMS fever Interval history: Afebrile, normal white count. Blood cultures no growth so far. Patient unable to give consent for LP. Objective - Exam Narrative Exam: General appearance: Alert in NAD pleasant Eyes: anicteric sclerae, moist conjunctivae; no lid-lag; PERRLA HENT: Normocephalic, Atraumatic; normal external ears, nares open, oropharynx clear with moist mucous membranes and no oral thrush Neck: supple, tracheal midline, no JVD Lungs: Clear to auscultation CV: RRR no murmur Abdomen: Soft nontender Extremities: no edema, no cyanosis Skin: No rash. Psych: no agitated Neuro: Alert, confused, nonverbal, left arm jerky - Constitutional Vitals: Vital Signs Temp Pulse Resp BP Pulse Ox 98.6 F 66 18 142/78 95 01/03/21 08:33 01/03/21 12:00 01/03/21 08:33 01/03/21 11:05 01/03/21 08:33 Temperature -Last 24 Hours Temperature 98.6 F Temperature 98.1 F Temperature 98.0 F Temperature 98.1 F Temperature 98.3 F - Labs CBC & Chem 7: 12/31/20 05:02 12/31/20 05:02
--- NOTE | 2021-01-03 15:19 | Consultation ---
History of Present Illness - Reason for Consult Consult date: 01/03/21 Reason for consult: schizophrenia - Chief Complaint Chief complaint: Altered Mental Status - History of Present Psychiatric Illness Per Note:Patient is seen in ED at bedside. patient name and age Unknown. per Ed record patient was brought to ED via EMS. Per EMS patient was found in the [place] and brought in for evaluation. Patient still unresponsive verbal and tactile stimuli. However, respiration is even and all unlabored. Blood pressure 168/88, oxygen saturation on 2 L 99%, respiration 19 and heart rate 73. CT of the head was done and is negative. Chest x-ray done is negative, urine drug screen showed negative for illicit drug, and blood work showed no acute finding. MRI of the brain ordered lactic acid ordered an elevated. Will start patient on empiric antibiotic and IV hydration. Discussed plan of care with the attending Dr. Chapman. Neurologist consulted. Mumtaz Chung is a 60 year old male with history of schizophrenia. In my interview with the patient he is confused, but alert to self. The patient is unable to participate in assessment. Unable to assess SI/HI/AVHs. PAST PSYCHIATRIC HISTORY:Unable to assess PAST MEDICAL HISTORY: None reported or document Family Psychiatric History: None reported or documented SOCIAL HISTORY: Unable to assess REVIEW OF SYSTEMS: Unable to assess MENTAL STATUS EXAMINATION: Unable to assess Assessment and Plan (1) encounter for screening examination for mental health and behavioral disorder- Z13.30 Current Visit: Yes Status: Acute I agree with the current treatment plan. The patient to comply with previously prescribed medications Risks, benefits and alternatives of medications discussed with the patient, questions answered and consent obtained from patient. PSYCHOTHERAPY: Supportive psychotherapy provided MEDICAL: Per primary team DELIRIUM PRECAUTIONS: Please re-orient patient frequently, keep lights on during the day, and minimize benzodiazepines and opiates as these medications could worsen patient's confusion. FIELD ATTENDANT: Defer to primary DISPOSITION:Do not recommend acute inpatient psychiatric hospitalization at this time. FOLLOW-UP: Will follow for medication management. Post hospital care: primary care provider, psychiatric provider Case staffed with Dr. Solorzano Medications and Allergies Allergies Allergy/AdvReac Type Severity Reaction Status Date / Time No Known Allergies Allergy Unverified 12/27/20 16:47 Home Medications Medication Instructions Recorded Confirmed Last Taken Type No Known Home Medications [No 12/29/20 12/29/20 Unknown History Reported Home Medications] Active Meds: Active Medications Acetaminophen (Acetaminophen 325 Mg Tab) 650 mg PO Q4H PRN PRN Reason: Pain MILD(1-3)/Fever >100.5/CARRERA Last Admin: 12/29/20 05:16 Dose: 650 mg Documented by: Al Hydrox/Mg Hydrox/Simethicone (Alum-Mag Hydroxide-Simethicone [phone]/5ml Oral Liqd 30 Ml) 30 ml PO Q4H PRN PRN Reason: Indigestion Amlodipine Besylate (Amlodipine 5 Mg Tab) 2.5 mg PO QDAY [facility] Last Admin: 01/03/21 11:05 Dose: 2.5 mg Documented by: Aspirin (Aspirin 81 Mg Tab Chew) 81 mg PO QDAY [facility] Last Admin: 01/03/21 11:04 Dose: 81 mg Documented by: Atorvastatin Calcium (Atorvastatin 40 Mg Tab) 40 mg PO QHS [facility] Last Admin: 01/02/21 22:57 Dose: 40 mg Documented by: Cyanocobalamin (Cyanocobalamin (Vit B-12) 1000 Mcg Tab) 1,000 mcg PO QDAY [facility] Last Admin: 01/03/21 11:05 Dose: 1,000 mcg Documented by: Enoxaparin Sodium (Enoxaparin 40 Mg/0.4 Ml Inj) 40 mg SUB-Q QDAY [facility] Last Admin: 01/03/21 11:05 Dose: 40 mg Documented by: Folic Acid (Folic Acid 1 Mg Tab) 1 mg PO DAILY [facility] Last Admin: 01/03/21 11:05 Dose: 1 mg Documented by: Hydralazine HCl (Hydralazine 20 Mg/1 Ml Inj) 5 mg IV Q4H PRN PRN Reason: Hypertension Last Admin: 12/29/20 12:05 Dose: 5 mg Documented by: Hydrochlorothiazide (Hydrochlorothiazide 25 Mg Tab) 25 mg PO QDAY [facility] Last Admin: 01/03/21 11:05 Dose: 25 mg Documented by: Ceftriaxone Sodium (Rocephin/Ns 2 Gm/100 Ml) 2 gm in 100 mls @ 200 mls/hr IV DAILY [facility]; Protocol Last Admin: 01/03/21 11:03 Dose: 200 mls/hr Documented by: Acyclovir 1,000 mg/ Sodium (Chloride) 120 mls @ 100 mls/hr IV Q8HR [facility]; Protocol Last Admin: 01/03/21 06:35 Dose: 100 mls/hr Documented by: Sodium Chloride (Nacl 0.9% 1000 Ml) 1,000 mls @ 125 mls/hr IV DIRECT [facility] Last Admin: 01/02/21 09:42 Dose: 125 mls/hr Documented by: Levetiracetam (Levetiracetam 500 Mg Tab) 500 mg PO BID [facility] Last Admin: 01/03/21 11:04 Dose: 500 mg Documented by: Lorazepam (Lorazepam 2 Mg/Ml Vial) 2 mg IV Q1HR PRN PRN Reason: CIWA-Ar 8-15 Last Admin: 12/30/20 22:21 Dose: 2 mg Documented by: Lorazepam (Lorazepam 2 Mg/Ml Vial) 4 mg IV Q1HR PRN PRN Reason: CIWA-Ar 16-25 Lorazepam (Lorazepam 2 Mg/Ml Vial) 2 mg IV PULP BEATER NR Stop: 01/03/21 17:30 Magnesium Hydroxide (Magnesium Hydroxide (Mom) Oral Liqd Udc) 30 ml PO Q4H PRN PRN Reason: Constipation Multivitamins/Minerals (Multivitamins,Ther W-Minerals Tab) 1 each PO QDAY [facility] Last Admin: 01/03/21 11:04 Dose: 1 each Documented by: Naloxone HCl (Naloxone 0.4 Mg/1 Ml Inj) 0.1 mg IV Q2MIN PRN PRN Reason: Res Rate </= 8 or 02 SAT < 92% Ondansetron HCl (Ondansetron 4 Mg/2 Ml Inj) 4 mg IV Q8H PRN PRN Reason: Nausea And Vomiting Risperidone (Risperidone 1 Mg Tab) 1 mg PO BID [facility] Last Admin: 01/03/21 11:04 Dose: 1 mg Documented by: Sodium Chloride (Sodium Chloride 0.9% 10 Ml Flush Syringe) 10 ml IV BID [facility] Last Admin: 01/03/21 11:04 Dose: 10 ml Documented by: Sodium Chloride (Sodium Chloride 0.9% 10 Ml Flush Syringe) 10 ml IV PRN PRN PRN Reason: LINE FLUSH Thiamine HCl (Thiamine 100 Mg Tab) 100 mg PO QDAY [facility] Last Admin: 01/03/21 11:04 Dose: 100 mg Documented by: Mental Status Exam - Vital signs Last Vital Signs Temp 98.6 F 01/03/21 08:33 Pulse 66 01/03/21 12:00 Resp 18 01/03/21 10:00 BP 142/78 01/03/21 11:05 Pulse Ox 97 01/03/21 10:00 Results Result Diagrams: 12/31/20 05:02 12/31/20 05:02 All other labs normal.
--- NOTE | 2021-01-03 17:21 | Progress Note ---
Assessment and Plan Assessment and plan: patient is seen in ED at bedside. patient name and age Unknown. per Ed record patient was brought to ED via EMS. Per EMS patient was found in the [place] and brought in for evaluation. Patient still unresponsive verbal and tactile stimuli. However, respiration is even and all unlabored. Blood pressure 168/88, oxygen saturation on 2 L 99%, respiration 19 and heart rate 73. CT of the head was done and is negative. Chest x-ray done is negative, urine drug screen showed negative for illicit drug, and blood work showed no acute finding. MRI of the brain ordered lactic acid ordered an elevated. Will start patient on empiric antibiotic and IV hydration. Discussed plan of care with the attending Dr. Chapman. Neurologist consulted. Patient has no family/no contact number on file to obtain consent for LP/MRI Patient is also severely agitated and restrained, radiology report unable to do LP/MRI due to above reasons. --Acute metabolic ncephalopathy CT of the head and urine drug test-negative MRI of brain ordered Chest x-ray negative for acute finding Consulted neurologist --Hyponatremia/resolved hyponaremia mild-likely 2/2 dehydration continue IV hydration -- Hypertension Continue current antihypertensives. Monitor blood pressure PRN Hydralazine -- Possible Seizure disorder Seizure precautions, antiepileptic medications, possible EEG, neurology consult --?ETOH abuse thiamine, folic acid Closely monitor for alcohol withdrawal symptoms. --History of schizophrenia Continue psych medications psych consulted Closely monitor --DVT prophylaxis Subcutaneous Lovenox We will closely monitor the patient and adjust management as needed Land Lease Information Clerk recommendations noted and appreciated Daily Hospital course: 12/28: Patient now with fever of unknown origin. Still confused discussed with ID will obtain lumbar puncture. 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 MRI is pending. 12/29: Still with low grade fever, continue abx, follow cultures, LP to be done on thursday due to no Radiologist, Neurology input noted. Swallow eval ok, continue diet. start on HCTZ and Norvasc for HTN. No history on patient available here yet.] Want CT of the head read as negative during neurologist did review any suspect an acute ischemic stroke starting the patient on aspirin 81 mg daily unfortunately this was not started yesterday not sure why but will start that today. EEG is also ordered for possible subclinical seizures. He refused an ABG. Continue restraints as 12/30: Patient still with confusion, I wonder if he has some etoh issues, will go ahead and start on CIWA protocol in addition to Banana bag. CONTINUE restraints. 12/31: I was able to obtain records from [facility] as patient was recently admitted there on December 20 he was discharged on vitamin B12 1000 mcg daily, ferrous sulfate 325 mg twice a day and Keppra 1000 mg every 12 hours in addition to rest. Do not 1 tablet 2 times a day of 2 mg each. He does have underlying schizophrenia prior history of cocaine abuse and also history of seizure diso rder and severe neurocognitive disorder. His court appointed [employer] agent is Grace Padilla phone #[phone]. At the time of his discharge from [place] he was supposed to be placed in a personal snf as he has a history of wandering. I am not sure if this was done. As he was brought to us "found in the [place]". Clinically he is showing some improvement but with the new information will obtain psych consultation. 01/01; could not do the MRI/LP due to his severe agitation And noncooperation, will try MRI study again tomorrow with Ativan 01/02; radiology cannot do lumbar puncture/MRI study due to patient's severe agitation requiring four-point restraints And no family/contact center manager available to consent for the above tests when patient is calm and stable 01/03; patient continues to be agitated requiring restraints, noncooperative and unsteady for lumbar punctures and MRI Patient has no family to give consent, case management informed History Interval history: I have seen and examined the patient at the bedside Patient's chart and medications reviewed Patient remains confused and slightly agitated Minimally communicative No new events reported by the nursing Hospitalist Physical - Constitutional Vitals: Temp Pulse Resp BP Pulse Ox 98.6 F 66 18 142/78 97 01/03/21 08:33 01/03/21 12:00 01/03/21 10:00 01/03/21 11:05 01/03/21 10:00 General appearance: Present: no acute distress, well-nourished, obese - EENT Eyes: Present: PERRL, EOM intact - Neck Neck: Present: supple, normal ROM - Respiratory Respiratory effort: normal Respiratory: bilateral: diminished, negative: rales, rhonchi, wheezing - Cardiovascular Rhythm: regular Heart Sounds: Present: S1 & S2 - Extremities Extremities: no ischemia, No edema - Abdominal General gastrointestinal: soft, non-tender, non-distended, normal bowel sounds - Integumentary Integumentary: Present: clear, warm - Psychiatric Psychiatric: appropriate mood/affect, cooperative - Neurologic Neurologic: CNII-XII intact, moves all extremities Results - Labs CBC & Chem 7: 12/31/20 05:02 12/31/20 05:02 Labs: Laboratory Last Values WBC 7.1 K/mm3 (4.5-11.0) 12/31/20 05:02 RBC 5.38 M/mm3 (3.65-5.03) H 12/31/20 05:02 Hgb 12.1 gm/dl (11.8-15.2) 12/31/20 05:02 Hct 37.7 % (35.5-45.6) 12/31/20 05:02 MCV 70 fl (84-94) L 12/31/20 05:02 MCH 23 pg (28-32) L 12/31/20 05:02 MCHC 32 % (32-34) 12/31/20 05:02 RDW 15.9 % (13.2-15.2) H 12/31/20 05:02 Plt Count 234 K/mm3 (140-440) 12/31/20 05:02 Lymph % (Auto) 6.4 % (13.4-35.0) L 12/27/20 17:34 [place] % (Auto) 3.9 % (0.0-7.3) 12/27/20 17:34 Eos % (Auto) 0.2 % (0.0-4.3) 12/27/20 17:34 Baso % (Auto) 0.5 % (0.0-1.8) 12/27/20 17:34 Lymph # (Auto) 0.7 K/mm3 (1.2-5.4) L 12/27/20 17:34 [place] # (Auto) 0.4 K/mm3 (0.0-0.8) 12/27/20 17:34 Eos # (Auto) 0.0 K/mm3 (0.0-0.4) 12/27/20 17:34 Baso # (Auto) 0.1 K/mm3 (0.0-0.1) 12/27/20 17:34 Add Manual Diff Complete 12/28/20 04:38 Total Counted 100 12/28/20 04:38 Seg Neutrophils % 89.0 % (40.0-70.0) H 12/27/20 17:34 Seg Neuts % (Manual) 81.0 % (40.0-70.0) H 12/28/20 04:38 Band Neutrophils % 1.0 % 12/28/20 04:38 Lymphocytes % (Manual) 14.0 % (13.4-35.0) 12/28/20 04:38 Monocytes % (Manual) 4.0 % (0.0-7.3) 12/28/20 04:38 Nucleated RBC % Not Reportable 12/28/20 04:38 Seg Neutrophils # 9.5 K/mm3 (1.8-7.7) H 12/27/20 17:34 Seg Neutrophils # Man 8.4 K/mm3 (1.8-7.7) H 12/28/20 04:38 Band Neutrophils # 0.1 K/mm3 12/28/20 04:38 Lymphocytes # (Manual) 1.5 K/mm3 (1.2-5.4) 12/28/20 04:38 Abs React Lymphs (Man) 0.0 K/mm3 12/28/20 04:38 Monocytes # (Manual) 0.4 K/mm3 (0.0-0.8) 12/28/20 04:38 Eosinophils # (Manual) 0.0 K/mm3 (0.0-0.4) 12/28/20 04:38 Basophils # (Manual) 0.0 K/mm3 (0.0-0.1) 12/28/20 04:38 Metamyelocytes # 0.0 K/mm3 12/28/20 04:38 Myelocytes # 0.0 K/mm3 12/28/20 04:38 Promyelocytes # 0.0 K/mm3 12/28/20 04:38 Blast Cells # 0.0 K/mm3 12/28/20 04:38 WBC Morphology Not Reportable 12/28/20 04:38 Hypersegmented Neuts Not Reportable 12/28/20 04:38 Hyposegmented Neuts Not Reportable 12/28/20 04:38 Hypogranular Neuts Not Reportable 12/28/20 04:38 Smudge Cells Not Reportable 12/28/20 04:38 Toxic Granulation Not Reportable 12/28/20 04:38 Toxic Vacuolation Not Reportable 12/28/20 04:38 Dohle Bodies Not Reportable 12/28/20 04:38 Pelger-Huet Anomaly Not Reportable 12/28/20 04:38 Diana Rods Not Reportable 12/28/20 04:38 Platelet Estimate Consistent w auto 12/28/20 04:38 Clumped Platelets Not Reportable 12/28/20 04:38 Plt Clumps, EDTA Not Reportable 12/28/20 04:38 Large Platelets Not Reportable 12/28/20 04:38 Giant Platelets Not Reportable 12/28/20 04:38 Platelet Satelliting Not Reportable 12/28/20 04:38 Plt Morphology Comment Not Reportable 12/28/20 04:38 RBC Morphology Not Reportable 12/28/20 04:38 Dimorphic RBCs Not Reportable 12/28/20 04:38 Polychromasia Not Reportable 12/28/20 04:38 Hypochromasia 1+ 12/28/20 04:38 Poikilocytosis Not Reportable 12/28/20 04:38 Anisocytosis Not Reportable 12/28/20 04:38 Microcytosis 1+ 12/28/20 04:38 Macrocytosis Not Reportable 12/28/20 04:38 Spherocytes Not Reportable 12/28/20 04:38 Pappenheimer Bodies Not Reportable 12/28/20 04:38 Sickle Cells Not Reportable 12/28/20 04:38 Target Cells Not Reportable 12/28/20 04:38 Tear Drop Cells Not Reportable 12/28/20 04:38 Ovalocytes 1+ 12/28/20 04:38 Helmet Cells Not Reportable 12/28/20 04:38 Solano-Katy Bodies Not Reportable 12/28/20 04:38 [place] Rings Not Reportable 12/28/20 04:38 [place] Cells Not Reportable 12/28/20 04:38 Bite Cells Not Reportable 12/28/20 04:38 Crenated Cell Not Reportable 12/28/20 04:38 Elliptocytes Not Reportable 12/28/20 04:38 Acanthocytes (Spur) Not Reportable 12/28/20 04:38 Rouleaux Not Reportable 12/28/20 04:38 Hemoglobin C Crystals Not Reportable 12/28/20 04:38 Schistocytes Not Reportable 12/28/20 04:38 Malaria parasites Not Reportable 12/28/20 04:38 Johnathon Bodies Not Reportable 12/28/20 04:38 Hem Pathologist Commnt No 12/28/20 04:38 Sodium 143 mmol/L (137-145) 12/31/20 05:02 Potassium 3.2 mmol/L (3.6-5.0) L 12/31/20 05:02 Chloride 106.5 mmol/L (98-107) 12/31/20 05:02 Carbon Dioxide 24 mmol/L (22-30) 12/31/20 05:02 Anion Gap 16 mmol/L 12/31/20 05:02 BUN 11 mg/dL (9-20) 12/31/20 05:02 Creatinine 0.7 mg/dL (0.8-1.3) L 12/31/20 05:02 Estimated GFR > 60 ml/min 12/31/20 05:02 BUN/Creatinine Ratio 16 % 12/31/20 05:02 Glucose 90 mg/dL (75-100) 12/31/20 05:02 POC Glucose 112 mg/dL (70-105) H 12/29/20 00:14 Lactic Acid 1.30 mmol/L (0.7-2.0) 12/28/20 08:13 Calcium 8.8 mg/dL (8.4-10.2) 12/31/20 05:02 Phosphorus 3.70 mg/dL (2.5-4.5) 12/30/20 13:13 Magnesium 2.10 mg/dL (1.7-2.3) 12/30/20 13:13 Total Bilirubin 0.50 mg/dL (0.1-1.2) 12/31/20 05:02 Direct Bilirubin < 0.2 mg/dL (0-0.2) 12/27/20 17:34 Indirect Bilirubin 0.2 mg/dL 12/27/20 17:34 AST 19 units/L (5-40) 12/31/20 05:02 ALT 12 units/L (7-56) 12/31/20 05:02 Alkaline Phosphatase 72 units/L (35-129) 12/31/20 05:02 Ammonia 21.0 umol/L (25-60) L 12/30/20 13:13 Total Protein 7.1 g/dL (6.3-8.2) 12/31/20 05:02 Albumin 3.7 g/dL (3.9-5) L 12/31/20 05:02 Albumin/Globulin Ratio 1.1 % 12/31/20 05:02 Urine Color Straw (Yellow) 12/28/20 02:15 Urine Turbidity Clear (Clear) 12/28/20 02:15 Urine pH 5.0 (5.0-7.0) 12/28/20 02:15 Ur Specific [place] 1.025 (1.003-1.030) 12/28/20 02:15 Urine Protein 100 mg/dl mg/dL (Negative) 12/28/20 02:15 Urine Glucose (UA) Negative mg/dL (Negative) 12/28/20 02:15 Urine Ketones Negative mg/dL (Negative) 12/28/20 02:15 Urine Blood Small (Negative) A 12/28/20 02:15 Urine Nitrite Negative (Negative) 12/28/20 02:15 Ur Reducing Substances Not Reportable 12/28/20 02:15 Urine Bilirubin Negative (Negative) 12/28/20 02:15 Urine Ictotest Not Reportable 12/28/20 02:15 Urine Urobilinogen < 2.0 mg/dL (<2.0) 12/28/20 02:15 Ur Leukocyte Esterase Negative (Negative) 12/28/20 02:15 Urine WBC (Auto) 3.0 /HPF (0.0-6.0) 12/28/20 02:15 Urine RBC (Auto) 4.0 /HPF (0.0-6.0) 12/28/20 02:15 U Epithel Cells (Auto) < 1.0 /HPF (0-13.0) 12/28/20 02:15 Hyaline Casts 1 /LPF 12/28/20 02:15 Granular Casts 1 /LPF 12/28/20 02:15 Urine Mucus Few /HPF 12/28/20 02:15 Salicylates < 0.3 mg/dL (2.8-20.0) L 12/27/20 17:34 Urine Opiates Screen Negative 12/27/20 17:11 Urine Methadone Screen Negative 12/27/20 17:11 Acetaminophen 5.0 ug/mL (10.0-30.0) L 12/27/20 17:34 Ur Barbiturates Screen Negative 12/27/20 17:11 Ur Phencyclidine Scrn Negative 12/27/20 17:11 Ur Amphetamines Screen Negative 12/27/20 17:11 U Benzodiazepines Scrn Negative 12/27/20 17:11 Urine Cocaine Screen Negative 12/27/20 17:11 U Marijuana (THC) Screen Negative 12/27/20 17:11 Drugs of Abuse Note Disclamer 12/27/20 17:11 Plasma/Serum Alcohol < 0.01 % (0-0.07) 12/27/20 17:34 Microbiology: Microbiology 12/30/20 13:13 Peripheral/Venous Blood Culture - Preliminary NO GROWTH AFTER 4 DAYS 12/30/20 13:13 Peripheral/Venous Blood Culture - Preliminary NO GROWTH AFTER 4 DAYS [place]/IV: Voiding Method Indwelling Catheter Active Medications - Current Medications Current Medications: Generic Name Dose Route Start Last Admin Trade Name Freq PRN Reason Stop Dose Admin Acetaminophen 650 mg 12/27/20 22:21 12/29/20 05:16 Acetaminophen 325 Mg Tab PO 650 mg Q4H PRN Administration Pain MILD(1-3)/Fever >100.5/CARRERA Al Hydrox/Mg Hydrox/Simethicone 30 ml 12/27/20 22:21 Alum-Mag Hydroxide-Simethicone 291-173-33uo/5ml Oral Liqd 30 Ml PO Q4H PRN Indigestion Amlodipine Besylate 2.5 mg 12/29/20 10:00 01/03/21 11:05 Amlodipine 5 Mg Tab PO 2.5 mg QDAY CHELLE Administration Aspirin 81 mg 12/29/20 10:00 01/03/21 11:04 Aspirin 81 Mg Tab Chew PO 81 mg QDAY CHELLE Administration Atorvastatin Calcium 40 mg 12/29/20 22:00 01/02/21 22:57 Atorvastatin 40 Mg Tab PO 40 mg QHS CHELLE Administration Cyanocobalamin 1,000 mcg 12/31/20 15:00 01/03/21 11:05 Cyanocobalamin (Vit B-12) 1000 Mcg Tab PO 1,000 mcg QDAY CHELLE Administration Enoxaparin Sodium 40 mg 12/28/20 10:00 01/03/21 11:05 Enoxaparin 40 Mg/0.4 Ml Inj SUB-Q 40 mg QDAY CHELLE Administration Folic Acid 1 mg 01/03/21 10:00 01/03/21 11:05 Folic Acid 1 Mg Tab PO 1 mg DAILY CHELLE Administration Hydralazine HCl 5 mg 12/27/20 22:35 12/29/20 12:05 Hydralazine 20 Mg/1 Ml Inj IV 5 mg Q4H PRN Administration Hypertension Hydrochlorothiazide 25 mg 12/29/20 10:00 01/03/21 11:05 Hydrochlorothiazide 25 Mg Tab PO 25 mg QDAY CHELLE Administration Ceftriaxone Sodium 2 gm in 100 mls @ 200 mls/hr 12/28/20 10:00 01/03/21 11:03 Rocephin/Ns 2 Gm/100 Ml IV 200 mls/hr DAILY CHELLE Administration Protocol Acyclovir 1,000 mg/ Sodium 120 mls @ 100 mls/hr 12/28/20 14:30 01/03/21 15:00 Chloride IV 100 mls/hr Q8HR CHELLE Administration Protocol Sodium Chloride 1,000 mls @ 125 mls/hr 12/30/20 23:30 01/02/21 09:42 Nacl 0.9% 1000 Ml IV 125 mls/hr DIRECT CHELLE Administration Levetiracetam 500 mg 01/02/21 10:00 01/03/21 11:04 Levetiracetam 500 Mg Tab PO 500 mg BID CHELLE Administration Lorazepam 2 mg 12/30/20 11:00 12/30/20 22:21 Lorazepam 2 Mg/Ml Vial IV 2 mg Q1HR PRN Administration CIWA-Ar 8-15 Lorazepam 4 mg 12/30/20 11:00 Lorazepam 2 Mg/Ml Vial IV Q1HR PRN CIWA-Ar 16-25 Lorazepam 2 mg 01/03/21 11:30 Lorazepam 2 Mg/Ml Vial IV 01/03/21 17:30 WINDER HAND NR Magnesium Hydroxide 30 ml 12/27/20 22:21 Magnesium Hydroxide (Mom) Oral Liqd Udc PO Q4H PRN Constipation Multivitamins/Minerals 1 each 01/03/21 10:00 01/03/21 11:04 Multivitamins,Ther W-Minerals Tab PO 1 each QDAY CHELLE Administration Naloxone HCl 0.1 mg 12/27/20 22:21 Naloxone 0.4 Mg/1 Ml Inj IV Q2MIN PRN Res Rate </= 8 or 02 SAT < 92% Ondansetron HCl 4 mg 12/27/20 22:21 Ondansetron 4 Mg/2 Ml Inj IV Q8H PRN Nausea And Vomiting Risperidone 1 mg 12/31/20 22:00 01/03/21 11:04 Risperidone 1 Mg Tab PO 1 mg BID CHELLE Administration Sodium Chloride 10 ml 12/28/20 10:00 01/03/21 11:04 Sodium Chloride 0.9% 10 Ml Flush Syringe IV 10 ml BID CHELLE Administration Sodium Chloride 10 ml 12/27/20 22:21 Sodium Chloride 0.9% 10 Ml Flush Syringe IV PRN PRN LINE FLUSH Thiamine HCl 100 mg 01/03/21 10:00 01/03/21 11:04 Thiamine 100 Mg Tab PO 100 mg QDAY CHELLE Administration Nutrition/Malnutrition Assess - Dietary Evaluation Nutrition/Malnutrition Findings: Nutrition Notes Start: 01/03/21 16:36 Freq: Status: Active Protocol: Document 01/03/21 16:36 GB (Rec: 01/03/21 16:43 GB [id number]) Nutrition Notes Need for Assessment generated from: LOS Initial or Follow up Assessment Current Diagnosis Hypertension Current Diet AMS, acute encephalopathy, schizophrenia Labs/Tests 12/31: creatinine 0.7, K 3.2 Pertinent Medications B12, folic acid, multivitamin/ mineral, NaCl 125ml/hr, thiamine HCl Height 6 ft Weight 112.8 kg [place] Body Weight (kg) 80.90 BMI 33.7 Weight change and time frame stable in hospital Weight Status Obese Subjective/Other Information PO intake recorded as 50-100%, tolerating meals well Percent of energy/protein needs met: PO intake of meals at 75% or greater meets 100% estimated energy needs. Burn Absent Trauma Absent GI Symptoms None Food Allergy No Skin Integrity/Comment no complications reported Current % PO Good (75-100%) Minimum of two criteria No #1 Nutrition Diagnosis No nutrition diagnosis at this time Etiology AMS, acute encephalopathy As Evidenced by Signs and Symptoms good po intake, stable weight in hospital Is patient on ventilator? No Is Patient Ambulatory and/or Out of Bed Yes REE-([place]-St. Jeor-ambulatory/OOB) [ 4932.300 NUTR.MSJOOB] Kcal/Kg value to use for calculation 18 Approximate Energy Requirements Using 2030 kcal/Kg Calculation Used for Recommendations Kcal/kg Additional Notes protein: 0.8-1 g/kg @ 113k-113g Fluids: 1 ml/kcal or per MD Nutrition Intervention Change Diet Order: continue Nutrition Support: n/a Add Supplement/Snack (indicate name/kcal n/a /protein ) Goal #1 PO intake of meals to maintain 75% or greater daily for LOS Follow-Up By: 01/10/21 Additional Comments PO intake meals, weight
[2021-01-03] MEDS: SODIUM CHLORIDE 0.9% 1000 ML 1,000 ML IV SCH (20:57)
[2021-01-04] MEDS: SODIUM CHLORIDE 0.9% 1000 ML 1,000 ML IV SCH (05:08)
[2021-01-04] MEDS: ACYCLOVIR 1,000 MG in SODIUM CHLORIDE 0.9% 100 ML IV SCH ×3 (05:08→22:27)
[2021-01-04] MEDS: MULTIVITAMINS,THER W-MINERALS TAB PO SCH (10:13)
[2021-01-04] MEDS: amLODIPine 5 MG TAB PO SCH (10:13)
[2021-01-04] MEDS: THIAMINE 100 MG TAB PO SCH (10:13)
[2021-01-04] MEDS: CYANOCOBALAMIN (VIT B-12) 1000 MCG TAB PO SCH (10:13)
[2021-01-04] MEDS: ASPIRIN 81 MG TAB CHEW PO SCH (10:13)
[2021-01-04] MEDS: levETIRAcetam 500 MG TAB PO SCH ×2 (10:13→22:03)
[2021-01-04] MEDS: hydroCHLOROthiazide 25 MG TAB PO SCH (10:13)
[2021-01-04] MEDS: FOLIC ACID 1 MG TAB PO SCH (10:15)
[2021-01-04] MEDS: ENOXAPARIN 40 MG/0.4 ML INJ SUB-Q SCH (10:15)
[2021-01-04] MEDS: risperiDONE 1 MG TAB PO SCH ×2 (10:15→22:03)
[2021-01-04] MEDS: cefTRIAXone/NS 2 GM/100 ML 2 GM/100 ML BAG IV SCH (10:16)
--- NOTE | 2021-01-04 12:27 | Progress Note ---
Subjective - Reason for Consult Consult date: 01/04/21 Reason for consult: AMS - Chief Complaint Chief complaint: The patient was seen today. He is confused and has poor insight. He is slow to respond. He thinks he's at [facility]. He doesn't know why he was admitted into the hospital. He also did not know the date. The patient denies SI/HI. The patient also denies ever seeing a psychiatrist. Nurse staff states the patient has been impulsive and agitated at times. REVIEW OF SYSTEMS: Unable to assess MENTAL STATUS EXAMINATION: Unable to assess Assessment and Plan (1) encounter for screening examination for mental health and behavioral disorder- Z13.30 Current Visit: Yes Status: Acute Treatment Plan Valproic liquid 250mg po daily Agree with rest of meds. The patient to comply with previously prescribed medications Risks, benefits and alternatives of medications discussed with the patient, questions answered and consent obtained from patient. PSYCHOTHERAPY: Supportive psychotherapy provided MEDICAL: Per primary team DELIRIUM PRECAUTIONS: Please re-orient patient frequently, keep lights on during the day, and minimize benzodiazepines and opiates as these medications could worsen patient's confusion. FISHING VESSEL OPERATOR: Defer to primary DISPOSITION: Do not recommend acute inpatient psychiatric hospitalization at this time. FOLLOW-UP: Will follow for medication management. Post hospital care: primary care provider, psychiatric provider Case staffed with Dr. Solorzano Mental Status Exam - Vital signs Last Vital Signs Temp 98.6 F 01/04/21 04:13 Pulse 58 L 01/04/21 10:13 Resp 18 01/04/21 04:13 BP 106/53 01/04/21 10:13 Pulse Ox 94 01/03/21 23:48
[2021-01-04] MEDS: VALPROIC ACID 250 MG/5 ML ORAL LIQD PO SCH (13:28)
--- NOTE | 2021-01-04 14:43 | Progress Note ---
Assessment and Plan Assessment and plan: patient is seen in ED at bedside. patient name and age Unknown. per Ed record patient was brought to ED via EMS. Per EMS patient was found in the aguirre and brought in for evaluation. Patient still unresponsive verbal and tactile stimuli. However, respiration is even and all unlabored. Blood pressure 168/88, oxygen saturation on 2 L 99%, respiration 19 and heart rate 73. CT of the head was done and is negative. Chest x-ray done is negative, urine drug screen showed negative for illicit drug, and blood work showed no acute finding. MRI of the brain ordered lactic acid ordered an elevated. Will start patient on empiric antibiotic and IV hydration. Discussed plan of care with the attending Dr. Chapman. Neurologist consulted. Patient has no family/no contact number on file to obtain consent for LP/MRI Patient is also severely agitated and restrained, radiology report unable to do LP/MRI due to above reasons. --Acute metabolic ncephalopathy CT of the head and urine drug test-negative MRI of brain ordered Chest x-ray negative for acute finding Consulted neurologist --Hyponatremia/resolved hyponaremia mild-likely 2/2 dehydration continue IV hydration -- Hypertension Continue current antihypertensives. Monitor blood pressure PRN Hydralazine -- Possible Seizure disorder Seizure precautions, antiepileptic medications, possible EEG, neurology consult --?ETOH abuse thiamine, folic acid Closely monitor for alcohol withdrawal symptoms. --History of schizophrenia Continue psych medications psych consulted Closely monitor --DVT prophylaxis Subcutaneous Lovenox We will closely monitor the patient and adjust management as needed Metal Smelter recommendations noted and appreciated Daily Hospital course: 12/28: Patient now with fever of unknown origin. Still confused discussed with ID will obtain lumbar puncture. 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 MRI is pending. 12/29: Still with low grade fever, continue abx, follow cultures, LP to be done on thursday due to no Radiologist, Neurology input noted. Swallow eval ok, continue diet. start on HCTZ and Norvasc for HTN. No history on patient available here yet.] Want CT of the head read as negative during neurologist did review any suspect an acute ischemic stroke starting the patient on aspirin 81 mg daily unfortunately this was not started yesterday not sure why but will start that today. EEG is also ordered for possible subclinical seizures. He refused an ABG. Continue restraints as 12/30: Patient still with confusion, I wonder if he has some etoh issues, will go ahead and start on CIWA protocol in addition to Banana bag. CONTINUE restraints. 12/31: I was able to obtain records from [facility] as patient was recently admitted there on December 20 he was discharged on vitamin B12 1000 mcg daily, ferrous sulfate 325 mg twice a day and Keppra 1000 mg every 12 hours in addition to rest. Do not 1 tablet 2 times a day of 2 mg each. He does have underlying schizophrenia prior history of cocaine abuse and also history of seizure diso rder and severe neurocognitive disorder. His court appointed [employer] agent is Grace Padilla phone #[phone]. At the time of his discharge from [place] he was supposed to be placed in a personal half-way as he has a history of wandering. I am not sure if this was done. As he was brought to us "found in the aguirre". Clinically he is showing some improvement but with the new information will obtain psych consultation. 01/01; could not do the MRI/LP due to his severe agitation And noncooperation, will try MRI study again tomorrow with Ativan 01/02; radiology cannot do lumbar puncture/MRI study due to patient's severe agitation requiring four-point restraints And no family/contact lens molder available to consent for the above tests when patient is calm and stable 01/03; patient continues to be agitated requiring restraints, noncooperative and unsteady for lumbar punctures and MRI Patient has no family to give consent, case management informed 01/04; patient is more calm, however gets agitated, informed me that patient's Michelle Padilla court appointed guardian, will call me To discuss and give consent for the tests and procedures ,waiting for patient's guardian call History Interval history: I have seen and examined the patient at the bedside Patient's chart and medications reviewed Patient feels slightly better still slightly agitated Vital signs reviewed Hospitalist Physical - Constitutional Vitals: Temp Pulse Resp BP Pulse Ox 98.6 F 58 L 18 106/53 94 01/04/21 04:13 01/04/21 10:13 01/04/21 04:13 01/04/21 10:13 01/03/21 23:48 General appearance: Present: no acute distress, well-nourished, other (Agitated and restrained) - EENT Eyes: Present: PERRL, EOM intact - Neck Neck: Present: supple, normal ROM - Respiratory Respiratory effort: normal Respiratory: bilateral: diminished, negative: rales, rhonchi, wheezing - Cardiovascular Rhythm: regular Heart Sounds: Present: S1 & S2 - Extremities Extremities: no ischemia, No edema - Abdominal General gastrointestinal: soft, non-tender, non-distended, normal bowel sounds - Integumentary Integumentary: Present: clear, warm - Psychiatric Psychiatric: agitated, other (Restrained) - Neurologic Neurologic: moves all extremities (Minimally communicative) Results - Labs CBC & Chem 7: 12/31/20 05:02 12/31/20 05:02 Labs: Laboratory Last Values WBC 7.1 K/mm3 (4.5-11.0) 12/31/20 05:02 RBC 5.38 M/mm3 (3.65-5.03) H 12/31/20 05:02 Hgb 12.1 gm/dl (11.8-15.2) 12/31/20 05:02 Hct 37.7 % (35.5-45.6) 12/31/20 05:02 MCV 70 fl (84-94) L 12/31/20 05:02 MCH 23 pg (28-32) L 12/31/20 05:02 MCHC 32 % (32-34) 12/31/20 05:02 RDW 15.9 % (13.2-15.2) H 12/31/20 05:02 Plt Count 234 K/mm3 (140-440) 12/31/20 05:02 Lymph % (Auto) 6.4 % (13.4-35.0) L 12/27/20 17:34 Bent % (Auto) 3.9 % (0.0-7.3) 12/27/20 17:34 Eos % (Auto) 0.2 % (0.0-4.3) 12/27/20 17:34 Baso % (Auto) 0.5 % (0.0-1.8) 12/27/20 17:34 Lymph # (Auto) 0.7 K/mm3 (1.2-5.4) L 12/27/20 17:34 Bent # (Auto) 0.4 K/mm3 (0.0-0.8) 12/27/20 17:34 Eos # (Auto) 0.0 K/mm3 (0.0-0.4) 12/27/20 17:34 Baso # (Auto) 0.1 K/mm3 (0.0-0.1) 12/27/20 17:34 Add Manual Diff Complete 12/28/20 04:38 Total Counted 100 12/28/20 04:38 Seg Neutrophils % 89.0 % (40.0-70.0) H 12/27/20 17:34 Seg Neuts % (Manual) 81.0 % (40.0-70.0) H 12/28/20 04:38 Band Neutrophils % 1.0 % 12/28/20 04:38 Lymphocytes % (Manual) 14.0 % (13.4-35.0) 12/28/20 04:38 Monocytes % (Manual) 4.0 % (0.0-7.3) 12/28/20 04:38 Nucleated RBC % Not Reportable 12/28/20 04:38 Seg Neutrophils # 9.5 K/mm3 (1.8-7.7) H 12/27/20 17:34 Seg Neutrophils # Man 8.4 K/mm3 (1.8-7.7) H 12/28/20 04:38 Band Neutrophils # 0.1 K/mm3 12/28/20 04:38 Lymphocytes # (Manual) 1.5 K/mm3 (1.2-5.4) 12/28/20 04:38 Abs React Lymphs (Man) 0.0 K/mm3 12/28/20 04:38 Monocytes # (Manual) 0.4 K/mm3 (0.0-0.8) 12/28/20 04:38 Eosinophils # (Manual) 0.0 K/mm3 (0.0-0.4) 12/28/20 04:38 Basophils # (Manual) 0.0 K/mm3 (0.0-0.1) 12/28/20 04:38 Metamyelocytes # 0.0 K/mm3 12/28/20 04:38 Myelocytes # 0.0 K/mm3 12/28/20 04:38 Promyelocytes # 0.0 K/mm3 12/28/20 04:38 Blast Cells # 0.0 K/mm3 12/28/20 04:38 WBC Morphology Not Reportable 12/28/20 04:38 Hypersegmented Neuts Not Reportable 12/28/20 04:38 Hyposegmented Neuts Not Reportable 12/28/20 04:38 Hypogranular Neuts Not Reportable 12/28/20 04:38 Smudge Cells Not Reportable 12/28/20 04:38 Toxic Granulation Not Reportable 12/28/20 04:38 Toxic Vacuolation Not Reportable 12/28/20 04:38 Dohle Bodies Not Reportable 12/28/20 04:38 Pelger-Huet Anomaly Not Reportable 12/28/20 04:38 Diana Rods Not Reportable 12/28/20 04:38 Platelet Estimate Consistent w auto 12/28/20 04:38 Clumped Platelets Not Reportable 12/28/20 04:38 Plt Clumps, EDTA Not Reportable 12/28/20 04:38 Large Platelets Not Reportable 12/28/20 04:38 Giant Platelets Not Reportable 12/28/20 04:38 Platelet Satelliting Not Reportable 12/28/20 04:38 Plt Morphology Comment Not Reportable 12/28/20 04:38 RBC Morphology Not Reportable 12/28/20 04:38 Dimorphic RBCs Not Reportable 12/28/20 04:38 Polychromasia Not Reportable 12/28/20 04:38 Hypochromasia 1+ 12/28/20 04:38 Poikilocytosis Not Reportable 12/28/20 04:38 Anisocytosis Not Reportable 12/28/20 04:38 Microcytosis 1+ 12/28/20 04:38 Macrocytosis Not Reportable 12/28/20 04:38 Spherocytes Not Reportable 12/28/20 04:38 Pappenheimer Bodies Not Reportable 12/28/20 04:38 Sickle Cells Not Reportable 12/28/20 04:38 Target Cells Not Reportable 12/28/20 04:38 Tear Drop Cells Not Reportable 12/28/20 04:38 Ovalocytes 1+ 12/28/20 04:38 Helmet Cells Not Reportable 12/28/20 04:38 [place] Bodies Not Reportable 12/28/20 04:38 [place] Rings Not Reportable 12/28/20 04:38 [place] Cells Not Reportable 12/28/20 04:38 Bite Cells Not Reportable 12/28/20 04:38 Crenated Cell Not Reportable 12/28/20 04:38 Elliptocytes Not Reportable 12/28/20 04:38 Acanthocytes (Spur) Not Reportable 12/28/20 04:38 Rouleaux Not Reportable 12/28/20 04:38 Hemoglobin C Crystals Not Reportable 12/28/20 04:38 Schistocytes Not Reportable 12/28/20 04:38 Malaria parasites Not Reportable 12/28/20 04:38 [place] Bodies Not Reportable 12/28/20 04:38 Hem Pathologist Commnt No 12/28/20 04:38 Sodium 143 mmol/L (137-145) 12/31/20 05:02 Potassium 3.2 mmol/L (3.6-5.0) L 12/31/20 05:02 Chloride 106.5 mmol/L (98-107) 12/31/20 05:02 Carbon Dioxide 24 mmol/L (22-30) 12/31/20 05:02 Anion Gap 16 mmol/L 12/31/20 05:02 BUN 11 mg/dL (9-20) 12/31/20 05:02 Creatinine 0.7 mg/dL (0.8-1.3) L 12/31/20 05:02 Estimated GFR > 60 ml/min 12/31/20 05:02 BUN/Creatinine Ratio 16 % 12/31/20 05:02 Glucose 90 mg/dL (75-100) 12/31/20 05:02 POC Glucose 112 mg/dL (70-105) H 12/29/20 00:14 Lactic Acid 1.30 mmol/L (0.7-2.0) 12/28/20 08:13 Calcium 8.8 mg/dL (8.4-10.2) 12/31/20 05:02 Phosphorus 3.70 mg/dL (2.5-4.5) 12/30/20 13:13 Magnesium 2.10 mg/dL (1.7-2.3) 12/30/20 13:13 Total Bilirubin 0.50 mg/dL (0.1-1.2) 12/31/20 05:02 Direct Bilirubin < 0.2 mg/dL (0-0.2) 12/27/20 17:34 Indirect Bilirubin 0.2 mg/dL 12/27/20 17:34 AST 19 units/L (5-40) 12/31/20 05:02 ALT 12 units/L (7-56) 12/31/20 05:02 Alkaline Phosphatase 72 units/L (35-129) 12/31/20 05:02 Ammonia 21.0 umol/L (25-60) L 12/30/20 13:13 Total Protein 7.1 g/dL (6.3-8.2) 12/31/20 05:02 Albumin 3.7 g/dL (3.9-5) L 12/31/20 05:02 Albumin/Globulin Ratio 1.1 % 12/31/20 05:02 Urine Color Straw (Yellow) 12/28/20 02:15 Urine Turbidity Clear (Clear) 12/28/20 02:15 Urine pH 5.0 (5.0-7.0) 12/28/20 02:15 Ur Specific [place] 1.025 (1.003-1.030) 12/28/20 02:15 Urine Protein 100 mg/dl mg/dL (Negative) 12/28/20 02:15 Urine Glucose (UA) Negative mg/dL (Negative) 12/28/20 02:15 Urine Ketones Negative mg/dL (Negative) 12/28/20 02:15 Urine Blood Small (Negative) A 12/28/20 02:15 Urine Nitrite Negative (Negative) 12/28/20 02:15 Ur Reducing Substances Not Reportable 12/28/20 02:15 Urine Bilirubin Negative (Negative) 12/28/20 02:15 Urine Ictotest Not Reportable 12/28/20 02:15 Urine Urobilinogen < 2.0 mg/dL (<2.0) 12/28/20 02:15 Ur Leukocyte Esterase Negative (Negative) 12/28/20 02:15 Urine WBC (Auto) 3.0 /HPF (0.0-6.0) 12/28/20 02:15 Urine RBC (Auto) 4.0 /HPF (0.0-6.0) 12/28/20 02:15 U Epithel Cells (Auto) < 1.0 /HPF (0-13.0) 12/28/20 02:15 Hyaline Casts 1 /LPF 12/28/20 02:15 Granular Casts 1 /LPF 12/28/20 02:15 Urine Mucus Few /HPF 12/28/20 02:15 Salicylates < 0.3 mg/dL (2.8-20.0) L 12/27/20 17:34 Urine Opiates Screen Negative 12/27/20 17:11 Urine Methadone Screen Negative 12/27/20 17:11 Acetaminophen 5.0 ug/mL (10.0-30.0) L 12/27/20 17:34 Ur Barbiturates Screen Negative 12/27/20 17:11 Ur Phencyclidine Scrn Negative 12/27/20 17:11 Ur Amphetamines Screen Negative 12/27/20 17:11 U Benzodiazepines Scrn Negative 12/27/20 17:11 Urine Cocaine Screen Negative 12/27/20 17:11 U Marijuana (THC) Screen Negative 12/27/20 17:11 Drugs of Abuse Note Disclamer 12/27/20 17:11 Plasma/Serum Alcohol < 0.01 % (0-0.07) 12/27/20 17:34 Microbiology: Microbiology 12/30/20 13:13 Peripheral/Venous Blood Culture - Final NO GROWTH AFTER 5 DAYS 12/30/20 13:13 Peripheral/Venous Blood Culture - Final NO GROWTH AFTER 5 DAYS [place]/IV: Voiding Method Indwelling Catheter Active Medications - Current Medications Current Medications: Generic Name Dose Route Start Last Admin Trade Name Freq PRN Reason Stop Dose Admin Acetaminophen 650 mg 12/27/20 22:21 12/29/20 05:16 Acetaminophen 325 Mg Tab PO 650 mg Q4H PRN Administration Pain MILD(1-3)/Fever >100.5/CARRERA Al Hydrox/Mg Hydrox/Simethicone 30 ml 12/27/20 22:21 Alum-Mag Hydroxide-Simethicone [id number]/5ml Oral Liqd 30 Ml PO Q4H PRN Indigestion Amlodipine Besylate 2.5 mg 12/29/20 10:00 01/04/21 10:13 Amlodipine 5 Mg Tab PO 2.5 mg QDAY CHELLE Administration Aspirin 81 mg 12/29/20 10:00 01/04/21 10:13 Aspirin 81 Mg Tab Chew PO 81 mg QDAY CHELLE Administration Atorvastatin Calcium 40 mg 12/29/20 22:00 01/03/21 22:01 Atorvastatin 40 Mg Tab PO 40 mg QHS CHELLE Administration Cyanocobalamin 1,000 mcg 10/04/21 15:00 01/04/21 10:13 Cyanocobalamin (Vit B-12) 1000 Mcg Tab PO 1,000 mcg QDAY CHELLE Administration Enoxaparin Sodium 40 mg 12/28/20 10:00 01/04/21 10:15 Enoxaparin 40 Mg/0.4 Ml Inj SUB-Q 40 mg QDAY CHELLE Administration Folic Acid 1 mg 01/03/21 10:00 01/04/21 10:15 Folic Acid 1 Mg Tab PO 1 mg DAILY CHELLE Administration Hydralazine HCl 5 mg 12/27/20 22:35 12/29/20 12:05 Hydralazine 20 Mg/1 Ml Inj IV 5 mg Q4H PRN Administration Hypertension Hydrochlorothiazide 25 mg 12/29/20 10:00 01/04/21 10:13 Hydrochlorothiazide 25 Mg Tab PO 25 mg QDAY CHELLE Administration Ceftriaxone Sodium 2 gm in 100 mls @ 200 mls/hr 12/28/20 10:00 01/04/21 10:16 Rocephin/Ns 2 Gm/100 Ml IV 200 mls/hr DAILY CHELLE Administration Protocol Acyclovir 1,000 mg/ Sodium 120 mls @ 100 mls/hr 12/28/20 14:30 01/04/21 05:08 Chloride IV 100 mls/hr Q8HR CHELLE Administration Protocol Sodium Chloride 1,000 mls @ 125 mls/hr 12/30/20 23:30 01/04/21 05:08 Nacl 0.9% 1000 Ml IV 125 mls/hr DIRECT CHELLE Administration Levetiracetam 500 mg 01/02/21 10:00 01/04/21 10:13 Levetiracetam 500 Mg Tab PO 500 mg BID CHELLE Administration Lorazepam 2 mg 12/30/20 11:00 12/30/20 22:21 Lorazepam 2 Mg/Ml Vial IV 2 mg Q1HR PRN Administration CIWA-Ar 8-15 Lorazepam 4 mg 12/30/20 11:00 Lorazepam 2 Mg/Ml Vial IV Q1HR PRN CIWA-Ar 16-25 Magnesium Hydroxide 30 ml 12/27/20 22:21 Magnesium Hydroxide (Mom) Oral Liqd Udc PO Q4H PRN Constipation Multivitamins/Minerals 1 each 01/03/21 10:00 01/04/21 10:13 Multivitamins,Ther W-Minerals Tab PO 1 each QDAY CHELLE Administration Naloxone HCl 0.1 mg 12/27/20 22:21 Naloxone 0.4 Mg/1 Ml Inj IV Q2MIN PRN Res Rate </= 8 or 02 SAT < 92% Ondansetron HCl 4 mg 12/27/20 22:21 Ondansetron 4 Mg/2 Ml Inj IV Q8H PRN Nausea And Vomiting Risperidone 1 mg 12/31/20 22:00 01/04/21 10:15 Risperidone 1 Mg Tab PO 1 mg BID CHELLE Administration Sodium Chloride 10 ml 12/28/20 10:00 01/04/21 10:17 Sodium Chloride 0.9% 10 Ml Flush Syringe IV 10 ml BID CHELLE Administration Sodium Chloride 10 ml 12/27/20 22:21 Sodium Chloride 0.9% 10 Ml Flush Syringe IV PRN PRN LINE FLUSH Thiamine HCl 100 mg 01/03/21 10:00 01/04/21 10:13 Thiamine 100 Mg Tab PO 100 mg QDAY CHELLE Administration Valproic Acid 250 mg 01/04/21 13:00 01/04/21 13:28 Valproic Acid 250 Mg/5 Ml Oral Liqd PO 250 mg DAILY CHELLE Administration Nutrition/Malnutrition Assess - Dietary Evaluation Nutrition/Malnutrition Findings: Nutrition Notes Start: 01/03/21 16:36 Freq: Status: Active Protocol: Document 01/03/21 16:36 GB (Rec: 01/03/21 16:43 GB [id number]) Nutrition Notes Need for Assessment generated from: LOS Initial or Follow up Assessment Current Diagnosis Hypertension Current Diet AMS, acute encephalopathy, schizophrenia Labs/Tests 12/31: creatinine 0.7, K 3.2 Pertinent Medications B12, folic acid, multivitamin/ mineral, NaCl 125ml/hr, thiamine HCl Height 6 ft Weight 112.8 kg [place] Body Weight (kg) 80.90 BMI 33.7 Weight change and time frame stable in hospital Weight Status Obese Subjective/Other Information PO intake recorded as 50-100%, tolerating meals well Percent of energy/protein needs met: PO intake of meals at 75% or greater meets 100% estimated energy needs. Burn Absent Trauma Absent GI Symptoms None Food Allergy No Skin Integrity/Comment no complications reported Current % PO Good (75-100%) Minimum of two criteria No #1 Nutrition Diagnosis No nutrition diagnosis at this time Etiology AMS, acute encephalopathy As Evidenced by Signs and Symptoms good po intake, stable weight in hospital Is patient on ventilator? No Is Patient Ambulatory and/or Out of Bed Yes REE-([facility]-ambulatory/OOB) [ 2575.300 NUTR.[id number]] Kcal/Kg value to use for calculation 18 Approximate Energy Requirements Using 2030 kcal/Kg Calculation Used for Recommendations Kcal/kg Additional Notes protein: 0.8-1 g/kg @ 113k-113g Fluids: 1 ml/kcal or per MD Nutrition Intervention Change Diet Order: continue Nutrition Support: n/a Add Supplement/Snack (indicate name/kcal n/a /protein ) Goal #1 PO intake of meals to maintain 75% or greater daily for LOS Follow-Up By: 01/10/21 Additional Comments PO intake meals, weight
--- NOTE | 2021-01-04 15:16 | Progress Note ---
Assessment and Plan Cultures: Blood cultures 12/30/2020 no growth so far A/P: 60 yo male, admitted after EMS found the patient in the aguirre, unresponsive: #Fever: Resolved. Etiology unclear. No leukocytosis. UA not impressive for UTI. Chest x-ray did not reveal any pneumonia. Patient was found in the aguirre, unresponsive. Mental status slowly getting better. No thrombocytopenia or transaminitis to suggest tickborne illness. Acute bacterial meningitis seems unlikely. #Acute encephalopathy: CT head without acute findings. urinary tox screen was negative. ? seizure (observed involunary jerking left am) ?ETOH withdrawal. 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 F/U MRI. LP pending. Patient unable to give consent. Would focus on obtaining MRI if only one is able to be obtained. Dasia Burk MD [facility], [facility] O: [phone] F: [phone] Subjective Date of service: 01/04/21 Principal diagnosis: AMS fever Interval history: Afebrile, normal white count. Cultures remain negative. Unable so far to get MRI and LP. Objective - Exam Narrative Exam: General appearance: Alert in NAD pleasant Eyes: anicteric sclerae, moist conjunctivae; no lid-lag; PERRLA HENT: Normocephalic, Atraumatic; normal external ears, nares open, oropharynx clear with moist mucous membranes and no oral thrush Neck: supple, tracheal midline, no JVD Lungs: Clear to auscultation CV: RRR no murmur Abdomen: Soft nontender Extremities: no edema, no cyanosis Skin: No rash. Psych: no agitated Neuro: Alert, less confused than previous. - Constitutional Vitals: Vital Signs Temp Pulse Resp BP Pulse Ox 98.6 F 58 L 18 106/53 94 01/04/21 04:13 01/04/21 10:13 01/04/21 04:13 01/04/21 10:13 01/03/21 23:48 Temperature -Last 24 Hours Temperature 98.6 F Temperature 98.6 F Temperature 98.6 F - Labs CBC & Chem 7: 12/31/20 05:02 12/31/20 05:02
[2021-01-05] MEDS: ACYCLOVIR 1,000 MG in SODIUM CHLORIDE 0.9% 100 ML IV SCH ×3 (05:47→22:11)
[2021-01-05] MEDS: amLODIPine 5 MG TAB PO SCH (09:02)
[2021-01-05] MEDS: ASPIRIN 81 MG TAB CHEW PO SCH (09:02)
[2021-01-05] MEDS: FOLIC ACID 1 MG TAB PO SCH (09:07)
[2021-01-05] MEDS: hydroCHLOROthiazide 25 MG TAB PO SCH (09:07)
[2021-01-05] MEDS: cefTRIAXone/NS 2 GM/100 ML 2 GM/100 ML BAG IV SCH (09:07)
[2021-01-05] MEDS: levETIRAcetam 500 MG TAB PO SCH ×2 (09:07→22:09)
[2021-01-05] MEDS: VALPROIC ACID 250 MG/5 ML ORAL LIQD PO SCH (09:07)
[2021-01-05] MEDS: MULTIVITAMINS,THER W-MINERALS TAB PO SCH (09:07)
[2021-01-05] MEDS: THIAMINE 100 MG TAB PO SCH (09:07)
[2021-01-05] MEDS: ENOXAPARIN 40 MG/0.4 ML INJ SUB-Q SCH (09:07)
[2021-01-05] MEDS: CYANOCOBALAMIN (VIT B-12) 1000 MCG TAB PO SCH (09:07)
[2021-01-05] MEDS: risperiDONE 1 MG TAB PO SCH ×2 (09:07→22:09)
--- NOTE | 2021-01-05 09:27 | Progress Note ---
Assessment and Plan Assessment and plan: patient is seen in ED at bedside. patient name and age Unknown. per Ed record patient was brought to ED via EMS. Per EMS patient was found in the [place] and brought in for evaluation. Patient still unresponsive verbal and tactile stimuli. However, respiration is even and all unlabored. Blood pressure 168/88, oxygen saturation on 2 L 99%, respiration 19 and heart rate 73. CT of the head was done and is negative. Chest x-ray done is negative, urine drug screen showed negative for illicit drug, and blood work showed no acute finding. MRI of the brain ordered lactic acid ordered an elevated. Will start patient on empiric antibiotic and IV hydration. Discussed plan of care with the attending Dr. Chapman. Neurologist consulted. Patient has no family/no contact number on file to obtain consent for LP/MRI Patient is also severely agitated and restrained, radiology report unable to do LP/MRI due to above reasons. --Acute metabolic ncephalopathy CT of the head and urine drug test-negative MRI of brain ordered Chest x-ray negative for acute finding Consulted neurologist --Hyponatremia/resolved hyponaremia mild-likely 2/2 dehydration continue IV hydration -- Hypertension Continue current antihypertensives. Monitor blood pressure PRN Hydralazine -- Possible Seizure disorder Seizure precautions, antiepileptic medications, possible EEG, neurology consult --?ETOH abuse thiamine, folic acid Closely monitor for alcohol withdrawal symptoms. --History of schizophrenia Continue psych medications psych consulted Closely monitor --DVT prophylaxis Subcutaneous Lovenox We will closely monitor the patient and adjust management as needed [employer] Leader recommendations noted and appreciated Daily Hospital course: 12/28: Patient now with fever of unknown origin. Still confused discussed with ID will obtain lumbar puncture. 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 MRI is pending. 12/29: Still with low grade fever, continue abx, follow cultures, LP to be done on thursday due to no Radiologist, Neurology input noted. Swallow eval ok, continue diet. start on HCTZ and Norvasc for HTN. No history on patient available here yet.] Want CT of the head read as negative during neurologist did review any suspect an acute ischemic stroke starting the patient on aspirin 81 mg daily unfortunately this was not started yesterday not sure why but will start that today. EEG is also ordered for possible subclinical seizures. He refused an ABG. Continue restraints as 12/30: Patient still with confusion, I wonder if he has some etoh issues, will go ahead and start on CIWA protocol in addition to Banana bag. CONTINUE restraints. 12/31: I was able to obtain records from [facility] as patient was recently admitted there on December 20 he was discharged on vitamin B12 1000 mcg daily, ferrous sulfate 325 mg twice a day and Keppra 1000 mg every 12 hours in addition to rest. Do not 1 tablet 2 times a day of 2 mg each. He does have underlying schizophrenia prior history of cocaine abuse and also history of seizure diso rder and severe neurocognitive disorder. His court appointed [employer] agent is Grace Padilla phone #[phone]. At the time of his discharge from [facility] he was supposed to be placed in a personal detention as he has a history of wandering. I am not sure if this was done. As he was brought to us "found in the [place]". Clinically he is showing some improvement but with the new information will obtain psych consultation. 01/01; could not do the MRI/LP due to his severe agitation And noncooperation, will try MRI study again tomorrow with Ativan 01/02; radiology cannot do lumbar puncture/MRI study due to patient's severe agitation requiring four-point restraints And no family/call or contact centre coach available to consent for the above tests when patient is calm and stable 01/03; patient continues to be agitated requiring restraints, noncooperative and unsteady for lumbar punctures and MRI Patient has no family to give consent, case management informed 01/04; patient is more calm, however gets agitated, informed me that patient's Michelle Padilla court appointed guardian, will call me To discuss and give consent for the tests and procedures ,waiting for patient's guardian call 01/05; still waiting for patient's guardian Indra Padilla to call and give consent for MRI/LP History Interval history: I have seen and examined the patient at the bedside Patient's chart and medications reviewed Patient feels slightly better Still confused agitated at times requiring restraints Awaiting court appointed guardian to call and give consent for MRI and lumbar puncture Hospitalist Physical - Constitutional Vitals: Temp Pulse Resp BP Pulse Ox 98.7 F 61 18 125/78 94 01/05/21 07:51 01/05/21 07:51 01/05/21 07:51 01/05/21 07:51 01/05/21 08:10 General appearance: Present: no acute distress, well-nourished, obese, other (Restraint) - EENT Eyes: Present: PERRL, EOM intact - Neck Neck: Present: supple, normal ROM - Respiratory Respiratory effort: normal Respiratory: bilateral: diminished, negative: rales, rhonchi, wheezing - Cardiovascular Rhythm: regular Heart Sounds: Present: S1 & S2 - Extremities Extremities: no ischemia, No edema - Abdominal General gastrointestinal: soft, non-tender, non-distended, normal bowel sounds - Integumentary Integumentary: Present: clear, warm - Psychiatric Psychiatric: appropriate mood/affect, agitated, other (Confused) - Neurologic Neurologic: moves all extremities, other (Confused) Results - Labs CBC & Chem 7: 12/31/20 05:02 12/31/20 05:02 Labs: Laboratory Last Values WBC 7.1 K/mm3 (4.5-11.0) 12/31/20 05:02 RBC 5.38 M/mm3 (3.65-5.03) H 12/31/20 05:02 Hgb 12.1 gm/dl (11.8-15.2) 12/31/20 05:02 Hct 37.7 % (35.5-45.6) 12/31/20 05:02 MCV 70 fl (84-94) L 12/31/20 05:02 MCH 23 pg (28-32) L 12/31/20 05:02 MCHC 32 % (32-34) 12/31/20 05:02 RDW 15.9 % (13.2-15.2) H 12/31/20 05:02 Plt Count 234 K/mm3 (140-440) 12/31/20 05:02 Lymph % (Auto) 6.4 % (13.4-35.0) L 12/27/20 17:34 [place] % (Auto) 3.9 % (0.0-7.3) 12/27/20 17:34 Eos % (Auto) 0.2 % (0.0-4.3) 12/27/20 17:34 Baso % (Auto) 0.5 % (0.0-1.8) 12/27/20 17:34 Lymph # (Auto) 0.7 K/mm3 (1.2-5.4) L 12/27/20 17:34 [place] # (Auto) 0.4 K/mm3 (0.0-0.8) 12/27/20 17:34 Eos # (Auto) 0.0 K/mm3 (0.0-0.4) 12/27/20 17:34 Baso # (Auto) 0.1 K/mm3 (0.0-0.1) 12/27/20 17:34 Add Manual Diff Complete 12/28/20 04:38 Total Counted 100 12/28/20 04:38 Seg Neutrophils % 89.0 % (40.0-70.0) H 12/27/20 17:34 Seg Neuts % (Manual) 81.0 % (40.0-70.0) H 12/28/20 04:38 Band Neutrophils % 1.0 % 12/28/20 04:38 Lymphocytes % (Manual) 14.0 % (13.4-35.0) 12/28/20 04:38 Monocytes % (Manual) 4.0 % (0.0-7.3) 12/28/20 04:38 Nucleated RBC % Not Reportable 12/28/20 04:38 Seg Neutrophils # 9.5 K/mm3 (1.8-7.7) H 12/27/20 17:34 Seg Neutrophils # Man 8.4 K/mm3 (1.8-7.7) H 12/28/20 04:38 Band Neutrophils # 0.1 K/mm3 12/28/20 04:38 Lymphocytes # (Manual) 1.5 K/mm3 (1.2-5.4) 12/28/20 04:38 Abs React Lymphs (Man) 0.0 K/mm3 12/28/20 04:38 Monocytes # (Manual) 0.4 K/mm3 (0.0-0.8) 12/28/20 04:38 Eosinophils # (Manual) 0.0 K/mm3 (0.0-0.4) 12/28/20 04:38 Basophils # (Manual) 0.0 K/mm3 (0.0-0.1) 12/28/20 04:38 Metamyelocytes # 0.0 K/mm3 12/28/20 04:38 Myelocytes # 0.0 K/mm3 12/28/20 04:38 Promyelocytes # 0.0 K/mm3 12/28/20 04:38 Blast Cells # 0.0 K/mm3 12/28/20 04:38 WBC Morphology Not Reportable 12/28/20 04:38 Hypersegmented Neuts Not Reportable 12/28/20 04:38 Hyposegmented Neuts Not Reportable 12/28/20 04:38 Hypogranular Neuts Not Reportable 12/28/20 04:38 Smudge Cells Not Reportable 12/28/20 04:38 Toxic Granulation Not Reportable 12/28/20 04:38 Toxic Vacuolation Not Reportable 12/28/20 04:38 Dohle Bodies Not Reportable 12/28/20 04:38 Pelger-Huet Anomaly Not Reportable 12/28/20 04:38 Diana Rods Not Reportable 12/28/20 04:38 Platelet Estimate Consistent w auto 12/28/20 04:38 Clumped Platelets Not Reportable 12/28/20 04:38 Plt Clumps, EDTA Not Reportable 12/28/20 04:38 Large Platelets Not Reportable 12/28/20 04:38 Giant Platelets Not Reportable 12/28/20 04:38 Platelet Satelliting Not Reportable 12/28/20 04:38 Plt Morphology Comment Not Reportable 12/28/20 04:38 RBC Morphology Not Reportable 12/28/20 04:38 Dimorphic RBCs Not Reportable 12/28/20 04:38 Polychromasia Not Reportable 12/28/20 04:38 Hypochromasia 1+ 12/28/20 04:38 Poikilocytosis Not Reportable 12/28/20 04:38 Anisocytosis Not Reportable 12/28/20 04:38 Microcytosis 1+ 12/28/20 04:38 Macrocytosis Not Reportable 12/28/20 04:38 Spherocytes Not Reportable 12/28/20 04:38 Pappenheimer Bodies Not Reportable 12/28/20 04:38 Sickle Cells Not Reportable 12/28/20 04:38 Target Cells Not Reportable 12/28/20 04:38 Tear Drop Cells Not Reportable 12/28/20 04:38 Ovalocytes 1+ 12/28/20 04:38 Helmet Cells Not Reportable 12/28/20 04:38 [place] Bodies Not Reportable 12/28/20 04:38 [place] Rings Not Reportable 12/28/20 04:38 [place] Cells Not Reportable 12/28/20 04:38 Bite Cells Not Reportable 12/28/20 04:38 Crenated Cell Not Reportable 12/28/20 04:38 Elliptocytes Not Reportable 12/28/20 04:38 Acanthocytes (Spur) Not Reportable 12/28/20 04:38 Rouleaux Not Reportable 12/28/20 04:38 Hemoglobin C Crystals Not Reportable 12/28/20 04:38 Schistocytes Not Reportable 12/28/20 04:38 Malaria parasites Not Reportable 12/28/20 04:38 [place] Bodies Not Reportable 12/28/20 04:38 Hem Pathologist Commnt No 12/28/20 04:38 Sodium 143 mmol/L (137-145) 12/31/20 05:02 Potassium 3.2 mmol/L (3.6-5.0) L 12/31/20 05:02 Chloride 106.5 mmol/L (98-107) 12/31/20 05:02 Carbon Dioxide 24 mmol/L (22-30) 12/31/20 05:02 Anion Gap 16 mmol/L 12/31/20 05:02 BUN 11 mg/dL (9-20) 12/31/20 05:02 Creatinine 0.7 mg/dL (0.8-1.3) L 12/31/20 05:02 Estimated GFR > 60 ml/min 12/31/20 05:02 BUN/Creatinine Ratio 16 % 12/31/20 05:02 Glucose 90 mg/dL (75-100) 12/31/20 05:02 POC Glucose 112 mg/dL (70-105) H 12/29/20 00:14 Lactic Acid 1.30 mmol/L (0.7-2.0) 12/28/20 08:13 Calcium 8.8 mg/dL (8.4-10.2) 12/31/20 05:02 Phosphorus 3.70 mg/dL (2.5-4.5) 12/30/20 13:13 Magnesium 2.10 mg/dL (1.7-2.3) 12/30/20 13:13 Total Bilirubin 0.50 mg/dL (0.1-1.2) 12/31/20 05:02 Direct Bilirubin < 0.2 mg/dL (0-0.2) 12/27/20 17:34 Indirect Bilirubin 0.2 mg/dL 12/27/20 17:34 AST 19 units/L (5-40) 12/31/20 05:02 ALT 12 units/L (7-56) 12/31/20 05:02 Alkaline Phosphatase 72 units/L (35-129) 12/31/20 05:02 Ammonia 21.0 umol/L (25-60) L 12/30/20 13:13 Total Protein 7.1 g/dL (6.3-8.2) 12/31/20 05:02 Albumin 3.7 g/dL (3.9-5) L 12/31/20 05:02 Albumin/Globulin Ratio 1.1 % 12/31/20 05:02 Urine Color Straw (Yellow) 12/28/20 02:15 Urine Turbidity Clear (Clear) 12/28/20 02:15 Urine pH 5.0 (5.0-7.0) 12/28/20 02:15 Ur Specific [place] 1.025 (1.003-1.030) 12/28/20 02:15 Urine Protein 100 mg/dl mg/dL (Negative) 12/28/20 02:15 Urine Glucose (UA) Negative mg/dL (Negative) 12/28/20 02:15 Urine Ketones Negative mg/dL (Negative) 12/28/20 02:15 Urine Blood Small (Negative) A 12/28/20 02:15 Urine Nitrite Negative (Negative) 12/28/20 02:15 Ur Reducing Substances Not Reportable 12/28/20 02:15 Urine Bilirubin Negative (Negative) 12/28/20 02:15 Urine Ictotest Not Reportable 12/28/20 02:15 Urine Urobilinogen < 2.0 mg/dL (<2.0) 12/28/20 02:15 Ur Leukocyte Esterase Negative (Negative) 12/28/20 02:15 Urine WBC (Auto) 3.0 /HPF (0.0-6.0) 12/28/20 02:15 Urine RBC (Auto) 4.0 /HPF (0.0-6.0) 12/28/20 02:15 U Epithel Cells (Auto) < 1.0 /HPF (0-13.0) 12/28/20 02:15 Hyaline Casts 1 /LPF 12/28/20 02:15 Granular Casts 1 /LPF 12/28/20 02:15 Urine Mucus Few /HPF 12/28/20 02:15 Salicylates < 0.3 mg/dL (2.8-20.0) L 12/27/20 17:34 Urine Opiates Screen Negative 12/27/20 17:11 Urine Methadone Screen Negative 12/27/20 17:11 Acetaminophen 5.0 ug/mL (10.0-30.0) L 12/27/20 17:34 Ur Barbiturates Screen Negative 12/27/20 17:11 Ur Phencyclidine Scrn Negative 12/27/20 17:11 Ur Amphetamines Screen Negative 12/27/20 17:11 U Benzodiazepines Scrn Negative 12/27/20 17:11 Urine Cocaine Screen Negative 12/27/20 17:11 U Marijuana (THC) Screen Negative 12/27/20 17:11 Drugs of Abuse Note Disclamer 12/27/20 17:11 Plasma/Serum Alcohol < 0.01 % (0-0.07) 12/27/20 17:34 Microbiology: Microbiology 12/30/20 13:13 Peripheral/Venous Blood Culture - Final NO GROWTH AFTER 5 DAYS 12/30/20 13:13 Peripheral/Venous Blood Culture - Final NO GROWTH AFTER 5 DAYS [place]/IV: Voiding Method Condom Catheter Active Medications - Current Medications Current Medications: Generic Name Dose Route Start Last Admin Trade Name Freq PRN Reason Stop Dose Admin Acetaminophen 650 mg 12/27/20 22:21 12/29/20 05:16 Acetaminophen 325 Mg Tab PO 650 mg Q4H PRN Administration Pain MILD(1-3)/Fever >100.5/CARRERA Al Hydrox/Mg Hydrox/Simethicone 30 ml 12/27/20 22:21 Alum-Mag Hydroxide-Simethicone 702-857-55to/5ml Oral Liqd 30 Ml PO Q4H PRN Indigestion Amlodipine Besylate 2.5 mg 12/29/20 10:00 01/05/21 09:02 Amlodipine 5 Mg Tab PO 2.5 mg QDAY CHELLE Administration Aspirin 81 mg 12/29/20 10:00 01/05/21 09:02 Aspirin 81 Mg Tab Chew PO 81 mg QDAY CHELLE Administration Atorvastatin Calcium 40 mg 12/29/20 22:00 01/04/21 22:03 Atorvastatin 40 Mg Tab PO 40 mg QHS CHELLE Administration Cyanocobalamin 1,000 mcg 12/31/20 15:00 01/05/21 09:07 Cyanocobalamin (Vit B-12) 1000 Mcg Tab PO 1,000 mcg QDAY CHELLE Administration Enoxaparin Sodium 40 mg 12/28/20 10:00 01/05/21 09:07 Enoxaparin 40 Mg/0.4 Ml Inj SUB-Q 40 mg QDAY CHELLE Administration Folic Acid 1 mg 01/03/21 10:00 01/05/21 09:07 Folic Acid 1 Mg Tab PO 1 mg DAILY CHELLE Administration Hydralazine HCl 5 mg 12/27/20 22:35 12/29/20 12:05 Hydralazine 20 Mg/1 Ml Inj IV 5 mg Q4H PRN Administration Hypertension Hydrochlorothiazide 25 mg 12/29/20 10:00 01/05/21 09:07 Hydrochlorothiazide 25 Mg Tab PO 25 mg QDAY CHELLE Administration Ceftriaxone Sodium 2 gm in 100 mls @ 200 mls/hr 12/28/20 10:00 01/05/21 09:07 Rocephin/Ns 2 Gm/100 Ml IV 200 mls/hr DAILY CHELLE Administration Protocol Acyclovir 1,000 mg/ Sodium 120 mls @ 100 mls/hr 12/28/20 14:30 01/05/21 05:47 Chloride IV 100 mls/hr Q8HR CHELLE Administration Protocol Sodium Chloride 1,000 mls @ 125 mls/hr 12/30/20 23:30 01/04/21 05:08 Nacl 0.9% 1000 Ml IV 125 mls/hr DIRECT CHELLE Administration Levetiracetam 500 mg 01/02/21 10:00 01/05/21 09:07 Levetiracetam 500 Mg Tab PO 500 mg BID CHELLE Administration Lorazepam 2 mg 12/30/20 11:00 12/30/20 22:21 Lorazepam 2 Mg/Ml Vial IV 2 mg Q1HR PRN Administration CIWA-Ar 8-15 Lorazepam 4 mg 12/30/20 11:00 Lorazepam 2 Mg/Ml Vial IV Q1HR PRN CIWA-Ar 16-25 Magnesium Hydroxide 30 ml 12/27/20 22:21 Magnesium Hydroxide (Mom) Oral Liqd Udc PO Q4H PRN Constipation Multivitamins/Minerals 1 each 01/03/21 10:00 01/05/21 09:07 Multivitamins,Ther W-Minerals Tab PO 1 each QDAY CHELLE Administration Naloxone HCl 0.1 mg 12/27/20 22:21 Naloxone 0.4 Mg/1 Ml Inj IV Q2MIN PRN Res Rate </= 8 or 02 SAT < 92% Ondansetron HCl 4 mg 12/27/20 22:21 Ondansetron 4 Mg/2 Ml Inj IV Q8H PRN Nausea And Vomiting Risperidone 1 mg 12/31/20 22:00 01/05/21 09:07 Risperidone 1 Mg Tab PO 1 mg BID CHELLE Administration Sodium Chloride 10 ml 12/28/20 10:00 01/05/21 09:07 Sodium Chloride 0.9% 10 Ml Flush Syringe IV 10 ml BID CHELLE Administration Sodium Chloride 10 ml 12/27/20 22:21 Sodium Chloride 0.9% 10 Ml Flush Syringe IV PRN PRN LINE FLUSH Thiamine HCl 100 mg 01/03/21 10:00 01/05/21 09:07 Thiamine 100 Mg Tab PO 100 mg QDAY CHELLE Administration Valproic Acid 250 mg 01/04/21 13:00 01/05/21 09:07 Valproic Acid 250 Mg/5 Ml Oral Liqd PO 250 mg DAILY CHELLE Administration Nutrition/Malnutrition Assess - Dietary Evaluation Nutrition/Malnutrition Findings: Nutrition Notes Start: 01/03/21 16:36 Freq: Status: Active Protocol: Document 01/03/21 16:36 GB (Rec: 01/03/21 16:43 GB [id number]) Nutrition Notes Need for Assessment generated from: LOS Initial or Follow up Assessment Current Diagnosis Hypertension Current Diet AMS, acute encephalopathy, schizophrenia Labs/Tests 12/31: creatinine 0.7, K 3.2 Pertinent Medications B12, folic acid, multivitamin/ mineral, NaCl 125ml/hr, thiamine HCl Height 6 ft Weight 112.8 kg [place] Body Weight (kg) 80.90 BMI 33.7 Weight change and time frame stable in hospital Weight Status Obese Subjective/Other Information PO intake recorded as 50-100%, tolerating meals well Percent of energy/protein needs met: PO intake of meals at 75% or greater meets 100% estimated energy needs. Burn Absent Trauma Absent GI Symptoms None Food Allergy No Skin Integrity/Comment no complications reported Current % PO Good (75-100%) Minimum of two criteria No #1 Nutrition Diagnosis No nutrition diagnosis at this time Etiology AMS, acute encephalopathy As Evidenced by Signs and Symptoms good po intake, stable weight in hospital Is patient on ventilator? No Is Patient Ambulatory and/or Out of Bed Yes REE-([place]. Jeor-ambulatory/OOB) [ 2575.300 NUTR.[id number]] Kcal/Kg value to use for calculation 18 Approximate Energy Requirements Using 2030 kcal/Kg Calculation Used for Recommendations Kcal/kg Additional Notes protein: 0.8-1 g/kg @ 113k-113g Fluids: 1 ml/kcal or per MD Nutrition Intervention Change Diet Order: continue Nutrition Support: n/a Add Supplement/Snack (indicate name/kcal n/a /protein ) Goal #1 PO intake of meals to maintain 75% or greater daily for LOS Follow-Up By: 01/10/21 Additional Comments PO intake meals, weight
--- NOTE | 2021-01-05 10:06 | Progress Note ---
Subjective - Reason for Consult Consult date: 01/05/21 Reason for consult: AMS - Chief Complaint Chief complaint: The patient was seen today. He is in restraints. He is still confused but answers some questions appropriately. He thinks he's at [place]. He correctly states that it is January 05 but unable to give the year. He says he slept good. He denies SI/HI or hallucinations. REVIEW OF SYSTEMS: Unable to assess MENTAL STATUS EXAMINATION: Unable to assess Assessment and Plan (1) encounter for screening examination for mental health and behavioral disorder- Z13.30 Current Visit: Yes Status: Acute Treatment Plan Continue Valproic liquid 250mg po daily Agree with rest of meds. The patient to comply with previously prescribed medications Risks, benefits and alternatives of medications discussed with the patient, questions answered and consent obtained from patient. PSYCHOTHERAPY: Supportive psychotherapy provided MEDICAL: Per primary team DELIRIUM PRECAUTIONS: Please re-orient patient frequently, keep lights on during the day, and minimize benzodiazepines and opiates as these medications could worsen patient's confusion. DENTAL EQUIPMENT MECHANIC: Defer to primary DISPOSITION: Do not recommend acute inpatient psychiatric hospitalization at this time. FOLLOW-UP: Will follow for medication management. Post hospital care: primary care provider, psychiatric provider Case staffed with Dr. Solorzano Mental Status Exam - Vital signs Last Vital Signs Temp 98.7 F 01/05/21 07:51 Pulse 61 01/05/21 07:51 Resp 18 01/05/21 07:51 BP 125/78 01/05/21 07:51 Pulse Ox 94 01/05/21 08:10
[2021-01-05] MEDS: SODIUM CHLORIDE 0.9% 1000 ML 1,000 ML IV SCH (17:17)
[2021-01-06] MEDS: ACYCLOVIR 1,000 MG in SODIUM CHLORIDE 0.9% 100 ML IV SCH ×3 (04:59→21:31)
[2021-01-06] MEDS: SODIUM CHLORIDE 0.9% 1000 ML 1,000 ML IV SCH (05:00)
[2021-01-06] MEDS: THIAMINE 100 MG TAB PO SCH (10:33)
[2021-01-06] MEDS: cefTRIAXone/NS 2 GM/100 ML 2 GM/100 ML BAG IV SCH (10:33)
[2021-01-06] MEDS: FOLIC ACID 1 MG TAB PO SCH (10:33)
[2021-01-06] MEDS: VALPROIC ACID 250 MG/5 ML ORAL LIQD PO SCH (10:33)
[2021-01-06] MEDS: amLODIPine 5 MG TAB PO SCH (10:33)
[2021-01-06] MEDS: CYANOCOBALAMIN (VIT B-12) 1000 MCG TAB PO SCH (10:33)
[2021-01-06] MEDS: hydroCHLOROthiazide 25 MG TAB PO SCH (10:33)
[2021-01-06] MEDS: MULTIVITAMINS,THER W-MINERALS TAB PO SCH (10:33)
[2021-01-06] MEDS: risperiDONE 1 MG TAB PO SCH ×2 (10:33→21:32)
[2021-01-06] MEDS: ENOXAPARIN 40 MG/0.4 ML INJ SUB-Q SCH (10:33)
[2021-01-06] MEDS: ASPIRIN 81 MG TAB CHEW PO SCH (10:33)
[2021-01-06] MEDS: levETIRAcetam 500 MG TAB PO SCH ×2 (10:33→21:32)
--- NOTE | 2021-01-06 11:49 | Progress Note ---
Subjective - Reason for Consult Consult date: 01/06/21 Reason for consult: Delirium - Chief Complaint Chief complaint: The patient was seen today. He is in restraints. He is sitting up in bed and states he just got done eating. He is confused, but calm and cooperative. He denies SI/HI or hallucinations. REVIEW OF SYSTEMS: Unable to assess MENTAL STATUS EXAMINATION: Unable to assess Assessment and Plan (1) encounter for screening examination for mental health and behavioral disorder- Z13.30 Current Visit: Yes Status: Acute Treatment Plan Continue Valproic liquid 250mg po daily Agree with rest of meds. The patient to comply with previously prescribed medications Risks, benefits and alternatives of medications discussed with the patient, questions answered and consent obtained from patient. PSYCHOTHERAPY: Supportive psychotherapy provided MEDICAL: Per primary team DELIRIUM PRECAUTIONS: Please re-orient patient frequently, keep lights on during the day, and minimize benzodiazepines and opiates as these medications could worsen patient's confusion. CONTROL PANEL OPERATOR CRUDE UNIT: Defer to primary DISPOSITION: Do not recommend acute inpatient psychiatric hospitalization at this time. FOLLOW-UP: Will follow for medication management. Post hospital care: primary care provider, psychiatric provider Case staffed with Dr. Solorzano Mental Status Exam - Vital signs Last Vital Signs Temp 98.9 F 01/06/21 08:33 Pulse 44 L 01/06/21 08:33 Resp 20 01/06/21 08:33 BP 132/74 01/06/21 08:33 Pulse Ox 98 01/06/21 08:33
--- NOTE | 2021-01-06 16:38 | Progress Note ---
Assessment and Plan Assessment and plan: patient is seen in ED at bedside. patient name and age Unknown. per Ed record patient was brought to ED via EMS. Per EMS patient was found in the agu[place] and brought in for evaluation. Patient still unresponsive verbal and tactile stimuli. However, respiration is even and all unlabored. Blood pressure 168/88, oxygen saturation on 2 L 99%, respiration 19 and heart rate 73[address] CT of the head was done and is negative. Chest x-ray done is negative, urine drug screen showed negative for illicit drug, and blood work showed no acute finding. MRI of the brain ordered lactic acid ordered an elevated. Will start patient on empiric antibiotic and IV hydration. Patient has no family/no contact number on file to obtain consent for LP/MRI Patient is also severely agitated and restrained, radiology report unable to do LP/MRI due to above reasons. --Acute metabolic ncephalopathy CT of the head and urine drug test-negative MRI of brain ordered unable to do , no consent, agitated and restrained. Chest x-ray negative for acute finding Consulted neurologist --Febrile illness; in the setting of an encephalopathy on admission ID evaluated the patient, treated with empiric antibiotics, requested LP/MRI, no family available, to give consent And patient is agitated and confused requiring restraints --Hyponatremia/resolved hyponaremia mild-likely 2/2 dehydration continue IV hydration -- Hypertension Continue current antihypertensives. Monitor blood pressure PRN Hydralazine -- Possible Seizure disorder Seizure precautions, antiepileptic medications, possible EEG, neurology consult --?ETOH abuse thiamine, folic acid Closely monitor for alcohol withdrawal symptoms. --History of schizophrenia Continue psych medications psych consulted Closely monitor --DVT prophylaxis Subcutaneous Lovenox We will closely monitor the patient and adjust management as needed Upholsterer Outside recommendations noted and appreciated. Case management stated that court-appointed guardian will page me. Still awaiting his call Daily Hospital course: 12/28: Patient now with fever of unknown origin. Still confused discussed with ID will obtain lumbar puncture. 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 MRI is pending. 12/29: Still with low grade fever, continue abx, follow cultures, LP to be done on thursday due to no Radiologist, Neurology input noted. Swallow eval ok, continue diet. start on HCTZ and Norvasc for HTN. No history on patient avail able here yet.] Want CT of the head read as negative during neurologist did review any suspect an acute ischemic stroke starting the patient on aspirin 81 mg daily unfortunately this was not started yesterday not sure why but will start that today. EEG is also ordered for possible subclinical seizures. He refused an ABG. Continue restraints as 12/30: Patient still with confusion, I wonder if he has some etoh issues, will go ahead and start on CIWA protocol in addition to Banana bag. CONTINUE restraints. 12/31: I was able to obtain records from [facility] as patient was recently admitted there on December 20 he was discharged on vitamin B12 1000 mcg daily, ferrous sulfate 325 mg twice a day and Keppra 1000 mg every 12 hours in addition to rest. Do not 1 tablet 2 times a day of 2 mg each. He does have underlying schizophrenia prior history of cocaine abuse and also history of seizure disorder and severe neurocognitive disorder. His court appointed [employer] agent is Grace Padilla phone #[phone]. At the time of his discharge from [facility] he was supposed to be placed in a personal shelter as he has a history of wandering. I am not sure if this was done. As he was brought to us "found in the aguirre". Clinically he is showing some improvement but with the new information will obtain psych consultation. 01/01; could not do the MRI/LP due to his severe agitation And noncooperation, will try MRI study again tomorrow with Ativan 01/02; radiology cannot do lumbar puncture/MRI study due to patient's severe agitation requiring four-point restraints And no family/blocker and cutter contact lens available to consent for the above tests when pat ient is calm and stable 01/03; patient continues to be agitated requiring restraints, noncooperative and unsteady for lumbar punctures and MRI Patient has no family to give consent, case management informed 01/04; patient is more calm, however gets agitated, CM informed me that patient's Michelle Padilla court appointed guardian, will call me To discuss and give consent for the tests and procedures ,waiting for patient's guardian call 01/05; still waiting for patient's guardian Indra Padilla to call and give consent for MRI/LP 01/06: Did not get a call from the patient's guardian Indra Padilla [Case management stated that patient's guardian will call me ] History Interval history: I have seen and examined the patient at the bedside Patient's chart and medications reviewed Patient is confused, restraint for safety Minimally communicative, not in acute distress Hospitalist Physical - Constitutional Vitals: Temp Pulse Resp BP Pulse Ox 98.3 F 75 18 134/84 97 01/06/21 15:47 01/06/21 15:47 01/06/21 15:47 01/06/21 15:47 01/06/21 15:47 General appearance: Present: no acute distress, well-nourished, obese, other (Restraint) - EENT Eyes: Present: PERRL, EOM intact - Neck Neck: Present: supple, normal ROM - Respiratory Respiratory effort: normal Respiratory: bilateral: diminished, negative: rales, rhonchi, wheezing - Cardiovascular Rhythm: regular Heart Sounds: Present: S1 & S2 - Extremities Extremities: no ischemia, No edema - Abdominal General gastrointestinal: soft, non-tender, non-distended, normal bowel sounds - Integumentary Integumentary: Present: clear, warm - Psychiatric Psychiatric: other (Confusion, minimally communicative) - Neurologic Neurologic: moves all extremities Results - Labs CBC & Chem 7: 12/31/20 05:02 12/31/20 05:02 Labs: Laboratory Last Values WBC 7.1 K/mm3 (4.5-11.0) 12/31/20 05:02 RBC 5.38 M/mm3 (3.65-5.03) H 12/31/20 05:02 Hgb 12.1 gm/dl (11.8-15.2) 12/31/20 05:02 Hct 37.7 % (35.5-45.6) 12/31/20 05:02 MCV 70 fl (84-94) L 12/31/20 05:02 MCH 23 pg (28-32) L 12/31/20 05:02 MCHC 32 % (32-34) 12/31/20 05:02 RDW 15.9 % (13.2-15.2) H 12/31/20 05:02 Plt Count 234 K/mm3 (140-440) 12/31/20 05:02 Lymph % (Auto) 6.4 % (13.4-35.0) L 12/27/20 17:34 [place] % (Auto) 3.9 % (0.0-7.3) 12/27/20 17:34 Eos % (Auto) 0.2 % (0.0-4.3) 12/27/20 17:34 Baso % (Auto) 0.5 % (0.0-1.8) 12/27/20 17:34 Lymph # (Auto) 0.7 K/mm3 (1.2-5.4) L 12/27/20 17:34 [place] # (Auto) 0.4 K/mm3 (0.0-0.8) 12/27/20 17:34 Eos # (Auto) 0.0 K/mm3 (0.0-0.4) 12/27/20 17:34 Baso # (Auto) 0.1 K/mm3 (0.0-0.1) 12/27/20 17:34 Add Manual Diff Complete 12/28/20 04:38 Total Counted 100 12/28/20 04:38 Seg Neutrophils % 89.0 % (40.0-70.0) H 12/27/20 17:34 Seg Neuts % (Manual) 81.0 % (40.0-70.0) H 12/28/20 04:38 Band Neutrophils % 1.0 % 12/28/20 04:38 Lymphocytes % (Manual) 14.0 % (13.4-35.0) 12/28/20 04:38 Monocytes % (Manual) 4.0 % (0.0-7.3) 12/28/20 04:38 Nucleated RBC % Not Reportable 12/28/20 04:38 Seg Neutrophils # 9.5 K/mm3 (1.8-7.7) H 12/27/20 17:34 Seg Neutrophils # Man 8.4 K/mm3 (1.8-7.7) H 12/28/20 04:38 Band Neutrophils # 0.1 K/mm3 12/28/20 04:38 Lymphocytes # (Manual) 1.5 K/mm3 (1.2-5.4) 12/28/20 04:38 Abs React Lymphs (Man) 0.0 K/mm3 12/28/20 04:38 Monocytes # (Manual) 0.4 K/mm3 (0.0-0.8) 12/28/20 04:38 Eosinophils # (Manual) 0.0 K/mm3 (0.0-0.4) 12/28/20 04:38 Basophils # (Manual) 0.0 K/mm3 (0.0-0.1) 12/28/20 04:38 Metamyelocytes # 0.0 K/mm3 12/28/20 04:38 Myelocytes # 0.0 K/mm3 12/28/20 04:38 Promyelocytes # 0.0 K/mm3 12/28/20 04:38 Blast Cells # 0.0 K/mm3 12/28/20 04:38 WBC Morphology Not Reportable 12/28/20 04:38 Hypersegmented Neuts Not Reportable 12/28/20 04:38 Hyposegmented Neuts Not Reportable 12/28/20 04:38 Hypogranular Neuts Not Reportable 12/28/20 04:38 Smudge Cells Not Reportable 12/28/20 04:38 Toxic Granulation Not Reportable 12/28/20 04:38 Toxic Vacuolation Not Reportable 12/28/20 04:38 Dohle Bodies Not Reportable 12/28/20 04:38 Pelger-Huet Anomaly Not Reportable 12/28/20 04:38 Diana Rods Not Reportable 12/28/20 04:38 Platelet Estimate Consistent w auto 12/28/20 04:38 Clumped Platelets Not Reportable 12/28/20 04:38 Plt Clumps, EDTA Not Reportable 12/28/20 04:38 Large Platelets Not Reportable 12/28/20 04:38 Giant Platelets Not Reportable 12/28/20 04:38 Platelet Satelliting Not Reportable 12/28/20 04:38 Plt Morphology Comment Not Reportable 12/28/20 04:38 RBC Morphology Not Reportable 12/28/20 04:38 Dimorphic RBCs Not Reportable 12/28/20 04:38 Polychromasia Not Reportable 12/28/20 04:38 Hypochromasia 1+ 12/28/20 04:38 Poikilocytosis Not Reportable 12/28/20 04:38 Anisocytosis Not Reportable 12/28/20 04:38 Microcytosis 1+ 12/28/20 04:38 Macrocytosis Not Reportable 12/28/20 04:38 Spherocytes Not Reportable 12/28/20 04:38 Pappenheimer Bodies Not Reportable 12/28/20 04:38 Sickle Cells Not Reportable 12/28/20 04:38 Target Cells Not Reportable 12/28/20 04:38 Tear Drop Cells Not Reportable 12/28/20 04:38 Ovalocytes 1+ 12/28/20 04:38 Helmet Cells Not Reportable 12/28/20 04:38 Solano-Tamiami Bodies Not Reportable 12/28/20 04:38 [place] Rings Not Reportable 12/28/20 04:38 Conway Cells Not Reportable 12/28/20 04:38 Bite Cells Not Reportable 12/28/20 04:38 Crenated Cell Not Reportable 12/28/20 04:38 Elliptocytes Not Reportable 12/28/20 04:38 Acanthocytes (Spur) Not Reportable 12/28/20 04:38 Rouleaux Not Reportable 12/28/20 04:38 Hemoglobin C Crystals Not Reportable 12/28/20 04:38 Schistocytes Not Reportable 12/28/20 04:38 Malaria parasites Not Reportable 12/28/20 04:38 Johnathon Bodies Not Reportable 12/28/20 04:38 Hem Pathologist Commnt No 12/28/20 04:38 Sodium 143 mmol/L (137-145) 12/31/20 05:02 Potassium 3.2 mmol/L (3.6-5.0) L 12/31/20 05:02 Chloride 106.5 mmol/L (98-107) 12/31/20 05:02 Carbon Dioxide 24 mmol/L (22-30) 12/31/20 05:02 Anion Gap 16 mmol/L 12/31/20 05:02 BUN 11 mg/dL (9-20) 12/31/20 05:02 Creatinine 0.7 mg/dL (0.8-1.3) L 12/31/20 05:02 Estimated GFR > 60 ml/min 12/31/20 05:02 BUN/Creatinine Ratio 16 % 12/31/20 05:02 Glucose 90 mg/dL (75-100) 12/31/20 05:02 POC Glucose 112 mg/dL (70-105) H 12/29/20 00:14 Lactic Acid 1.30 mmol/L (0.7-2.0) 12/28/20 08:13 Calcium 8.8 mg/dL (8.4-10.2) 12/31/20 05:02 Phosphorus 3.70 mg/dL (2.5-4.5) 12/30/20 13:13 Magnesium 2.10 mg/dL (1.7-2.3) 12/30/20 13:13 Total Bilirubin 0.50 mg/dL (0.1-1.2) 12/31/20 05:02 Direct Bilirubin < 0.2 mg/dL (0-0.2) 12/27/20 17:34 Indirect Bilirubin 0.2 mg/dL 12/27/20 17:34 AST 19 units/L (5-40) 12/31/20 05:02 ALT 12 units/L (7-56) 12/31/20 05:02 Alkaline Phosphatase 72 units/L (35-129) 12/31/20 05:02 Ammonia 21.0 umol/L (25-60) L 12/30/20 13:13 Total Protein 7.1 g/dL (6.3-8.2) 12/31/20 05:02 Albumin 3.7 g/dL (3.9-5) L 12/31/20 05:02 Albumin/Globulin Ratio 1.1 % 12/31/20 05:02 Urine Color Straw (Yellow) 12/28/20 02:15 Urine Turbidity Clear (Clear) 12/28/20 02:15 Urine pH 5.0 (5.0-7.0) 12/28/20 02:15 Ur Specific [place] 1.025 (1.003-1.030) 12/28/20 02:15 Urine Protein 100 mg/dl mg/dL (Negative) 12/28/20 02:15 Urine Glucose (UA) Negative mg/dL (Negative) 12/28/20 02:15 Urine Ketones Negative mg/dL (Negative) 12/28/20 02:15 Urine Blood Small (Negative) A 12/28/20 02:15 Urine Nitrite Negative (Negative) 12/28/20 02:15 Ur Reducing Substances Not Reportable 12/28/20 02:15 Urine Bilirubin Negative (Negative) 12/28/20 02:15 Urine Ictotest Not Reportable 12/28/20 02:15 Urine Urobilinogen < 2.0 mg/dL (<2.0) 12/28/20 02:15 Ur Leukocyte Esterase Negative (Negative) 12/28/20 02:15 Urine WBC (Auto) 3.0 /HPF (0.0-6.0) 12/28/20 02:15 Urine RBC (Auto) 4.0 /HPF (0.0-6.0) 12/28/20 02:15 U Epithel Cells (Auto) < 1.0 /HPF (0-13.0) 12/28/20 02:15 Hyaline Casts 1 /LPF 12/28/20 02:15 Granular Casts 1 /LPF 12/28/20 02:15 Urine Mucus Few /HPF 12/28/20 02:15 Salicylates < 0.3 mg/dL (2.8-20.0) L 12/27/20 17:34 Urine Opiates Screen Negative 12/27/20 17:11 Urine Methadone Screen Negative 12/27/20 17:11 Acetaminophen 5.0 ug/mL (10.0-30.0) L 12/27/20 17:34 Ur Barbiturates Screen Negative 12/27/20 17:11 Ur Phencyclidine Scrn Negative 12/27/20 17:11 Ur Amphetamines Screen Negative 12/27/20 17:11 U Benzodiazepines Scrn Negative 12/27/20 17:11 Urine Cocaine Screen Negative 12/27/20 17:11 U Marijuana (THC) Screen Negative 12/27/20 17:11 Drugs of Abuse Note Disclamer 12/27/20 17:11 Plasma/Serum Alcohol < 0.01 % (0-0.07) 12/27/20 17:34 [place]/IV: Voiding Method Condom Catheter Active Medications - Current Medications Current Medications: Generic Name Dose Route Start Last Admin Trade Name Freq PRN Reason Stop Dose Admin Acetaminophen 650 mg 12/27/20 22:21 12/29/20 05:16 Acetaminophen 325 Mg Tab PO 650 mg Q4H PRN Administration Pain MILD(1-3)/Fever >100.5/CARRERA Al Hydrox/Mg Hydrox/Simethicone 30 ml 12/27/20 22:21 Alum-Mag Hydroxide-Simethicone [id number]/5ml Oral Liqd 30 Ml PO Q4H PRN Indigestion Amlodipine Besylate 2.5 mg 12/29/20 10:00 01/06/21 10:33 Amlodipine 5 Mg Tab PO 2.5 mg QDAY CHELLE Administration Aspirin 81 mg 12/29/20 10:00 01/06/21 10:33 Aspirin 81 Mg Tab Chew PO 81 mg QDAY CHELLE Administration Atorvastatin Calcium 40 mg 12/29/20 22:00 01/05/21 22:09 Atorvastatin 40 Mg Tab PO 40 mg QHS CHELLE Administration Cyanocobalamin 1,000 mcg 12/31/20 15:00 01/06/21 10:33 Cyanocobalamin (Vit B-12) 1000 Mcg Tab PO 1,000 mcg QDAY CHELLE Administration Enoxaparin Sodium 40 mg 12/28/20 10:00 01/06/21 10:33 Enoxaparin 40 Mg/0.4 Ml Inj SUB-Q 40 mg QDAY CHELLE Administration Folic Acid 1 mg 01/03/21 10:00 01/06/21 10:33 Folic Acid 1 Mg Tab PO 1 mg DAILY CHELLE Administration Hydralazine HCl 5 mg 12/27/20 22:35 12/29/20 12:05 Hydralazine 20 Mg/1 Ml Inj IV 5 mg Q4H PRN Administration Hypertension Hydrochlorothiazide 25 mg 12/29/20 10:00 01/06/21 10:33 Hydrochlorothiazide 25 Mg Tab PO 25 mg QDAY CHELLE Administration Ceftriaxone Sodium 2 gm in 100 mls @ 200 mls/hr 12/28/20 10:00 01/06/21 10:33 Rocephin/Ns 2 Gm/100 Ml IV 200 mls/hr DAILY CHELLE Administration Protocol Acyclovir 1,000 mg/ Sodium 120 mls @ 100 mls/hr 12/28/20 14:30 01/06/21 14:12 Chloride IV 100 mls/hr Q8HR CHELLE Administration Protocol Levetiracetam 500 mg 01/02/21 10:00 01/06/21 10:33 Levetiracetam 500 Mg Tab PO 500 mg BID CHELLE Administration Lorazepam 2 mg 12/30/20 11:00 12/30/20 22:21 Lorazepam 2 Mg/Ml Vial IV 2 mg Q1HR PRN Administration CIWA-Ar 8-15 Lorazepam 4 mg 12/30/20 11:00 Lorazepam 2 Mg/Ml Vial IV Q1HR PRN CIWA-Ar 16-25 Magnesium Hydroxide 30 ml 12/27/20 22:21 Magnesium Hydroxide (Mom) Oral Liqd Udc PO Q4H PRN Constipation Multivitamins/Minerals 1 each 01/03/21 10:00 01/06/21 10:33 Multivitamins,Ther W-Minerals Tab PO 1 each QDAY CHELLE Administration Naloxone HCl 0.1 mg 12/27/20 22:21 Naloxone 0.4 Mg/1 Ml Inj IV Q2MIN PRN Res Rate </= 8 or 02 SAT < 92% Ondansetron HCl 4 mg 12/27/20 22:21 Ondansetron 4 Mg/2 Ml Inj IV Q8H PRN Nausea And Vomiting Risperidone 1 mg 12/31/20 22:00 01/06/21 10:33 Risperidone 1 Mg Tab PO 1 mg BID CHELLE Administration Sodium Chloride 10 ml 12/28/20 10:00 01/06/21 10:33 Sodium Chloride 0.9% 10 Ml Flush Syringe IV 10 ml BID CHELLE Administration Sodium Chloride 10 ml 12/27/20 22:21 Sodium Chloride 0.9% 10 Ml Flush Syringe IV PRN PRN LINE FLUSH Thiamine HCl 100 mg 01/03/21 10:00 01/06/21 10:33 Thiamine 100 Mg Tab PO 100 mg QDAY CHELLE Administration Valproic Acid 250 mg 01/04/21 13:00 01/06/21 10:33 Valproic Acid 250 Mg/5 Ml Oral Liqd PO 250 mg DAILY CHELLE Administration Nutrition/Malnutrition Assess - Dietary Evaluation Nutrition/Malnutrition Findings: Nutrition Notes Start: 01/03/21 16:36 Freq: Status: Active Protocol: Document 01/03/21 16:36 GB (Rec: 01/03/21 16:43 GB [id number]) Nutrition Notes Need for Assessment generated from: LOS Initial or Follow up Assessment Current Diagnosis Hypertension Current Diet AMS, acute encephalopathy, schizophrenia Labs/Tests 12/31: creatinine 0.7, K 3.2 Pertinent Medications B12, folic acid, multivitamin/ mineral, NaCl 125ml/hr, thiamine HCl Height 6 ft Weight 112.8 kg [place] Body Weight (kg) 80.90 BMI 33.7 Weight change and time frame stable in hospital Weight Status Obese Subjective/Other Information PO intake recorded as 50-100%, tolerating meals well Percent of energy/protein needs met: PO intake of meals at 75% or greater meets 100% estimated energy needs. Burn Absent Trauma Absent GI Symptoms None Food Allergy No Skin Integrity/Comment no complications reported Current % PO Good (75-100%) Minimum of two criteria No #1 Nutrition Diagnosis No nutrition diagnosis at this time Etiology AMS, acute encephalopathy As Evidenced by Signs and Symptoms good po intake, stable weight in hospital Is patient on ventilator? No Is Patient Ambulatory and/or Out of Bed Yes [facility] [ 2575.300 NUTR.[id number]] Kcal/Kg value to use for calculation 18 Approximate Energy Requirements Using 2030 kcal/Kg Calculation Used for Recommendations Kcal/kg Additional Notes protein: 0.8-1 g/kg @ 113k-113g Fluids: 1 ml/kcal or per MD Nutrition Intervention Change Diet Order: continue Nutrition Support: n/a Add Supplement/Snack (indicate name/kcal n/a /protein ) Goal #1 PO intake of meals to maintain 75% or greater daily for LOS Follow-Up By: 01/10/21 Additional Comments PO intake meals, weight
[2021-01-07] MEDS: ACYCLOVIR 1,000 MG in SODIUM CHLORIDE 0.9% 100 ML IV SCH ×3 (05:24→21:32)
[2021-01-07 06:34] LABS: Blood Urea Nitrogen 11 mg/dL (9-20); Calcium 9.8 mg/dL (8.4-10.2); Hemolysis Index 1
[2021-01-07 06:37] LABS: BUN/Creatinine Ratio 16
[2021-01-07] MEDS: ENOXAPARIN 40 MG/0.4 ML INJ SUB-Q SCH (11:21)
[2021-01-07] MEDS: CYANOCOBALAMIN (VIT B-12) 1000 MCG TAB PO SCH (11:21)
[2021-01-07] MEDS: hydroCHLOROthiazide 25 MG TAB PO SCH (11:21)
[2021-01-07] MEDS: MULTIVITAMINS,THER W-MINERALS TAB PO SCH (11:22)
[2021-01-07] MEDS: ASPIRIN 81 MG TAB CHEW PO SCH (11:22)
[2021-01-07] MEDS: levETIRAcetam 500 MG TAB PO SCH ×2 (11:22→21:32)
[2021-01-07] MEDS: FOLIC ACID 1 MG TAB PO SCH (11:22)
[2021-01-07] MEDS: cefTRIAXone/NS 2 GM/100 ML 2 GM/100 ML BAG IV SCH (11:22)
[2021-01-07] MEDS: amLODIPine 5 MG TAB PO SCH (11:22)
[2021-01-07] MEDS: THIAMINE 100 MG TAB PO SCH (11:22)
[2021-01-07] MEDS: VALPROIC ACID 250 MG/5 ML ORAL LIQD PO SCH (11:22)
[2021-01-07] MEDS: risperiDONE 1 MG TAB PO SCH ×2 (11:22→21:32)
--- NOTE | 2021-01-07 11:23 | Progress Note ---
Subjective - Reason for Consult Consult date: 01/07/21 Reason for consult: AMS - Chief Complaint Chief complaint: The patient was seen today. He is in restraints. He is confused, but pleasant. He is calm and cooperative. He says he's doing alright. The patient says he slept good. He denies SI/HI or hallucinations of any kind. REVIEW OF SYSTEMS: Unable to assess MENTAL STATUS EXAMINATION: Unable to assess Assessment and Plan (1) encounter for screening examination for mental health and behavioral disorder- Z13.30 Current Visit: Yes Status: Acute Treatment Plan Continue Valproic liquid 250mg po daily Agree with rest of meds. The patient to comply with previously prescribed medications Risks, benefits and alternatives of medications discussed with the patient, questions answered and consent obtained from patient. PSYCHOTHERAPY: Supportive psychotherapy provided MEDICAL: Per primary team DELIRIUM PRECAUTIONS: Please re-orient patient frequently, keep lights on during the day, and minimize benzodiazepines and opiates as these medications could worsen patient's confusion. WORSHIP LEADER: Defer to primary DISPOSITION: Do not recommend acute inpatient psychiatric hospitalization at this time. FOLLOW-UP: Will follow for medication management. Post hospital care: primary care provider, psychiatric provider Case staffed with Dr. Solorzano Mental Status Exam - Vital signs Last Vital Signs Temp 97.4 F L 01/07/21 03:43 Pulse 64 01/07/21 03:43 Resp 16 01/07/21 03:43 BP 127/79 01/07/21 03:43 Pulse Ox 98 01/07/21 03:43
--- NOTE | 2021-01-07 11:58 | Progress Note ---
Assessment and Plan Cultures: Blood cultures 12/30/2020 no growth so far A/P: 60 yo male, admitted after EMS found the patient in the aguir[place], unresponsive: #Fever: Resolved. Etiology unclear. No leukocytosis. UA not impressive for UTI. Chest x-ray did not reveal any pneumonia. Patient was found in the aguir[place], unresponsive. Mental status slowly getting better. No thrombocytopenia or transaminitis to suggest tickborne illness. Acute bacterial meningitis seems unlikely. #Acute encephalopathy: CT head without acute findings. urinary tox screen was negative. ? seizure (observed involunary jerking left am) ?ETOH withdrawal. 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 No LP or MRI. Continue empiric therapy through 01/10 then stop. Dasia Burk MD [facility] O: [phone] F: [phone] Subjective Date of service: 01/07/21 Principal diagnosis: AMS fever Interval history: Afebrile, normal white count. Objective - Exam Narrative Exam: General appearance: Alert in NAD pleasant Eyes: anicteric sclerae, moist conjunctivae; no lid-lag; PERRLA HENT: Normocephalic, Atraumatic; normal external ears, nares open, oropharynx clear with moist mucous membranes and no oral thrush Neck: supple, tracheal midline, no JVD Lungs: Clear to auscultation CV: RRR no murmur Abdomen: Soft nontender Extremities: no edema, no cyanosis Skin: No rash. Psych: no agitated Neuro: Alert, less confused than previous. - Constitutional Vitals: Vital Signs Temp Pulse Resp BP Pulse Ox 97.4 F L 64 16 127/79 98 01/07/21 03:43 01/07/21 03:43 01/07/21 03:43 01/07/21 03:43 01/07/21 03:43 Temperature -Last 24 Hours Temperature 97.4 F Temperature 98.0 F Temperature 98.3 F Temperature 98.3 F - Labs CBC & Chem 7: 12/31/20 05:02 01/07/21 04:41 Labs: Abnormal lab results 01/07/21 Range/Units 04:41 Creatinine 0.7 L (0.8-1.3) mg/dL
--- NOTE | 2021-01-07 20:33 | Progress Note ---
Assessment and Plan Assessment and plan: patient is seen in ED at bedside. patient name and age Unknown. per Ed record patient was brought to ED via EMS. Per EMS patient was found in the aguirre and brought in for evaluation. Patient still unresponsive verbal and tactile stimuli. However, respiration is even and all unlabored. Blood pressure 168/88, oxygen saturation on 2 L 99%, respiration 19 and heart rate 73. CT of the head was done and is negative. Chest x-ray done is negative, urine drug screen showed negative for illicit drug, and blood work showed no acute finding. MRI of the brain ordered lactic acid ordered an elevated. Will start patient on empiric antibiotic and IV hydration. Patient has no family/no contact number on file to obtain consent for LP/MRI[court appointed guardian could not be reached] Patient is also severely agitated and restrained, radiology unable to do LP/MRI due to above reasons[patient agitated and restrained/no consent]. --Acute metabolic ncephalopathy CT of the head and urine drug test-negative MRI of brain ordered unable to do , no consent, agitated and restrained. Chest x-ray negative for acute finding Consulted neurologist --Febrile illness; in the setting of an encephalopathy on admission ID evaluated the patient, treated with empiric antibiotics, requested LP/MRI, no family available, to give consent And patient is agitated and confused requiring restraints --Hyponatremia/resolved hyponaremia mild-likely 2/2 dehydration continue IV hydration -- Hypertension Continue current antihypertensives. Monitor blood pressure PRN Hydralazine -- Possible Seizure disorder Seizure precautions, antiepileptic medications, possible EEG, neurology consult --?ETOH abuse thiamine, folic acid Closely monitor for alcohol withdrawal symptoms. --History of schizophrenia Continue psych medications psych consulted Closely monitor --DVT prophylaxis Subcutaneous Lovenox We will closely monitor the patient and adjust management as needed Radiator Specialist recommendations noted and appreciated. Case management stated that court-appointed guardian will page me. Still awaiting his call Daily Hospital course: 12/28: Patient now with fever of unknown origin. Still confused discussed with ID will obtain lumbar puncture. 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 MRI is pending. 12/29: Still with low grade fever, continue abx, follow cultures, LP to be done on thursday due to no Radiologist, Neurology input noted. Swallow eval ok, continue diet. start on HCTZ and Norvasc for HTN. No history on patient available here yet.] Want CT of the head read as negative during neurologist did review any suspect an acute ischemic stroke starting the patient on aspirin 81 mg daily unfortunately this was not started yesterday not sure why but will start that today. EEG is also ordered for possible subclinical seizures. He refused an ABG. Continue restraints as 12/30: Patient still with confusion, I wonder if he has some etoh issues, will go ahead and start on CIWA protocol in addition to Banana bag. CONTINUE restraints. 12/31: I was able to obtain records from [facility] as patient was recently admitted there on December 20 he was discharged on vitamin B12 1000 mcg daily, ferrous sulfate 325 mg twice a day and Keppra 1000 mg every 12 hours in addition to rest. Do not 1 tablet 2 times a day of 2 mg each. He does have underlying schizophrenia prior history of cocaine abuse and also history of seizure disorder and severe neurocognitive disorder. His court appointed [employer] agent is Grace Padilla phone #[phone]. At the time of his discharge from [facility] he was supposed to be placed in a personal mcc as he has a history of wandering. I am not sure if this was done. As he was brought to us "found in the aguirre". Clinically he is showing some improvement but with the new information will obtain psych consultation. 01/01; could not do the MRI/LP due to his severe agitation And noncooperation, will try MRI study again tomorrow with Ativan 01/02; radiology cannot do lumbar puncture/MRI study due to patient's severe agitation requiring four-point restraints And no family/lathe operator contact lens available to consent for the above tests when patient is calm and stable 01/03; patient continues to be agitated requiring restraints, noncooperative and unsteady for lumbar punctures and MRI Patient has no family to give consent, case management informed 01/04; patient is more calm, however gets agitated, CM informed me that patient's Michelle Padilla court appointed guardian, will call me To discuss and give consent for the tests and procedures ,waiting for patient's guardian call 01/05; still waiting for patient's guardian Indra Padilla to call and give consent for MRI/LP 01/06: Did not get a call from the patient's guardian Indra Padilla [Case management stated that patient's guardian will call me ] 01/07; patient's guardian Michelle Padilla did not contact me , CM could not reach her. No consent for LP/MRI Possible placement to [facility]. Discharge planning per case management History Interval history: I have seen and examined the patient at the bedside, patient is minimally communicative Agitated and combative ,restrained for safety, no other complaints Hospitalist Physical - Constitutional Vitals: Temp Pulse Resp BP Pulse Ox 98.5 F 72 14 112/66 98 01/07/21 19:45 01/07/21 19:45 01/07/21 19:45 01/07/21 19:45 01/07/21 19:45 General appearance: Present: no acute distress, well-nourished, other (Agitated and restrained) - EENT Eyes: Present: PERRL, EOM intact - Neck Neck: Present: supple, normal ROM - Respiratory Respiratory effort: normal Respiratory: bilateral: diminished, negative: rales, rhonchi, wheezing - Cardiovascular Rhythm: regular Heart Sounds: Present: S1 & S2 - Extremities Extremities: no ischemia, No edema - Abdominal General gastrointestinal: soft, non-tender, non-distended, normal bowel sounds - Integumentary Integumentary: Present: clear, warm - Psychiatric Psychiatric: agitated, other - Neurologic Neurologic: moves all extremities (Confused) Results - Labs CBC & Chem 7: 12/31/20 05:02 01/07/21 04:41 Labs: Laboratory Last Values WBC 7.1 K/mm3 (4.5-11.0) 12/31/20 05:02 RBC 5.38 M/mm3 (3.65-5.03) H 12/31/20 05:02 Hgb 12.1 gm/dl (11.8-15.2) 12/31/20 05:02 Hct 37.7 % (35.5-45.6) 12/31/20 05:02 MCV 70 fl (84-94) L 12/31/20 05:02 MCH 23 pg (28-32) L 12/31/20 05:02 MCHC 32 % (32-34) 12/31/20 05:02 RDW 15.9 % (13.2-15.2) H 12/31/20 05:02 Plt Count 234 K/mm3 (140-440) 12/31/20 05:02 Lymph % (Auto) 6.4 % (13.4-35.0) L 12/27/20 17:34 Bell % (Auto) 3.9 % (0.0-7.3) 12/27/20 17:34 Eos % (Auto) 0.2 % (0.0-4.3) 12/27/20 17:34 Baso % (Auto) 0.5 % (0.0-1.8) 12/27/20 17:34 Lymph # (Auto) 0.7 K/mm3 (1.2-5.4) L 12/27/20 17:34 Bell # (Auto) 0.4 K/mm3 (0.0-0.8) 12/27/20 17:34 Eos # (Auto) 0.0 K/mm3 (0.0-0.4) 12/27/20 17:34 Baso # (Auto) 0.1 K/mm3 (0.0-0.1) 12/27/20 17:34 Add Manual Diff Complete 12/28/20 04:38 Total Counted 100 12/28/20 04:38 Seg Neutrophils % 89.0 % (40.0-70.0) H 12/27/20 17:34 Seg Neuts % (Manual) 81.0 % (40.0-70.0) H 12/28/20 04:38 Band Neutrophils % 1.0 % 12/28/20 04:38 Lymphocytes % (Manual) 14.0 % (13.4-35.0) 12/28/20 04:38 Monocytes % (Manual) 4.0 % (0.0-7.3) 12/28/20 04:38 Nucleated RBC % Not Reportable 12/28/20 04:38 Seg Neutrophils # 9.5 K/mm3 (1.8-7.7) H 12/27/20 17:34 Seg Neutrophils # Man 8.4 K/mm3 (1.8-7.7) H 12/28/20 04:38 Band Neutrophils # 0.1 K/mm3 12/28/20 04:38 Lymphocytes # (Manual) 1.5 K/mm3 (1.2-5.4) 12/28/20 04:38 Abs React Lymphs (Man) 0.0 K/mm3 12/28/20 04:38 Monocytes # (Manual) 0.4 K/mm3 (0.0-0.8) 12/28/20 04:38 Eosinophils # (Manual) 0.0 K/mm3 (0.0-0.4) 12/28/20 04:38 Basophils # (Manual) 0.0 K/mm3 (0.0-0.1) 12/28/20 04:38 Metamyelocytes # 0.0 K/mm3 12/28/20 04:38 Myelocytes # 0.0 K/mm3 12/28/20 04:38 Promyelocytes # 0.0 K/mm3 12/28/20 04:38 Blast Cells # 0.0 K/mm3 12/28/20 04:38 WBC Morphology Not Reportable 12/28/20 04:38 Hypersegmented Neuts Not Reportable 12/28/20 04:38 Hyposegmented Neuts Not Reportable 12/28/20 04:38 Hypogranular Neuts Not Reportable 12/28/20 04:38 Smudge Cells Not Reportable 12/28/20 04:38 Toxic Granulation Not Reportable 12/28/20 04:38 Toxic Vacuolation Not Reportable 12/28/20 04:38 Dohle Bodies Not Reportable 12/28/20 04:38 Pelger-Huet Anomaly Not Reportable 12/28/20 04:38 Diana Rods Not Reportable 12/28/20 04:38 Platelet Estimate Consistent w auto 12/28/20 04:38 Clumped Platelets Not Reportable 12/28/20 04:38 Plt Clumps, EDTA Not Reportable 12/28/20 04:38 Large Platelets Not Reportable 12/28/20 04:38 Giant Platelets Not Reportable 12/28/20 04:38 Platelet Satelliting Not Reportable 12/28/20 04:38 Plt Morphology Comment Not Reportable 12/28/20 04:38 RBC Morphology Not Reportable 12/28/20 04:38 Dimorphic RBCs Not Reportable 12/28/20 04:38 Polychromasia Not Reportable 12/28/20 04:38 Hypochromasia 1+ 12/28/20 04:38 Poikilocytosis Not Reportable 12/28/20 04:38 Anisocytosis Not Reportable 12/28/20 04:38 Microcytosis 1+ 12/28/20 04:38 Macrocytosis Not Reportable 12/28/20 04:38 Spherocytes Not Reportable 12/28/20 04:38 Pappenheimer Bodies Not Reportable 12/28/20 04:38 Sickle Cells Not Reportable 12/28/20 04:38 Target Cells Not Reportable 12/28/20 04:38 Tear Drop Cells Not Reportable 12/28/20 04:38 Ovalocytes 1+ 12/28/20 04:38 Helmet Cells Not Reportable 12/28/20 04:38 Solano-[place] Bodies Not Reportable 12/28/20 04:38 [place] Rings Not Reportable 12/28/20 04:38 [place] Cells Not Reportable 12/28/20 04:38 Bite Cells Not Reportable 12/28/20 04:38 Crenated Cell Not Reportable 12/28/20 04:38 Elliptocytes Not Reportable 12/28/20 04:38 Acanthocytes (Spur) Not Reportable 12/28/20 04:38 Rouleaux Not Reportable 12/28/20 04:38 Hemoglobin C Crystals Not Reportable 12/28/20 04:38 Schistocytes Not Reportable 12/28/20 04:38 Malaria parasites Not Reportable 12/28/20 04:38 Johnathon Bodies Not Reportable 12/28/20 04:38 Hem Pathologist Commnt No 12/28/20 04:38 Sodium 140 mmol/L (137-145) 01/07/21 04:41 Potassium 3.8 mmol/L (3.6-5.0) 01/07/21 04:41 Chloride 102.4 mmol/L (98-107) 01/07/21 04:41 Carbon Dioxide 25 mmol/L (22-30) 01/07/21 04:41 Anion Gap 16 mmol/L 01/07/21 04:41 BUN 11 mg/dL (9-20) 01/07/21 04:41 Creatinine 0.7 mg/dL (0.8-1.3) L 01/07/21 04:41 Estimated GFR > 60 ml/min 01/07/21 04:41 BUN/Creatinine Ratio 16 % 01/07/21 04:41 Glucose 81 mg/dL (75-100) 01/07/21 04:41 POC Glucose 112 mg/dL (70-105) H 12/29/20 00:14 Lactic Acid 1.30 mmol/L (0.7-2.0) 12/28/20 08:13 Calcium 9.8 mg/dL (8.4-10.2) 01/07/21 04:41 Phosphorus 3.70 mg/dL (2.5-4.5) 12/30/20 13:13 Magnesium 2.10 mg/dL (1.7-2.3) 12/30/20 13:13 Total Bilirubin 0.50 mg/dL (0.1-1.2) 12/31/20 05:02 Direct Bilirubin < 0.2 mg/dL (0-0.2) 12/27/20 17:34 Indirect Bilirubin 0.2 mg/dL 12/27/20 17:34 AST 19 units/L (5-40) 12/31/20 05:02 ALT 12 units/L (7-56) 12/31/20 05:02 Alkaline Phosphatase 72 units/L (35-129) 12/31/20 05:02 Ammonia 21.0 umol/L (25-60) L 12/30/20 13:13 Total Protein 7.1 g/dL (6.3-8.2) 12/31/20 05:02 Albumin 3.7 g/dL (3.9-5) L 12/31/20 05:02 Albumin/Globulin Ratio 1.1 % 12/31/20 05:02 Urine Color Straw (Yellow) 12/28/20 02:15 Urine Turbidity Clear (Clear) 12/28/20 02:15 Urine pH 5.0 (5.0-7.0) 12/28/20 02:15 Ur Specific [place] 1.025 (1.003-1.030) 12/28/20 02:15 Urine Protein 100 mg/dl mg/dL (Negative) 12/28/20 02:15 Urine Glucose (UA) Negative mg/dL (Negative) 12/28/20 02:15 Urine Ketones Negative mg/dL (Negative) 12/28/20 02:15 Urine Blood Small (Negative) A 12/28/20 02:15 Urine Nitrite Negative (Negative) 12/28/20 02:15 Ur Reducing Substances Not Reportable 12/28/20 02:15 Urine Bilirubin Negative (Negative) 12/28/20 02:15 Urine Ictotest Not Reportable 12/28/20 02:15 Urine Urobilinogen < 2.0 mg/dL (<2.0) 12/28/20 02:15 Ur Leukocyte Esterase Negative (Negative) 12/28/20 02:15 Urine WBC (Auto) 3.0 /HPF (0.0-6.0) 12/28/20 02:15 Urine RBC (Auto) 4.0 /HPF (0.0-6.0) 12/28/20 02:15 U Epithel Cells (Auto) < 1.0 /HPF (0-13.0) 12/28/20 02:15 Hyaline Casts 1 /LPF 12/28/20 02:15 Granular Casts 1 /LPF 12/28/20 02:15 Urine Mucus Few /HPF 12/28/20 02:15 Salicylates < 0.3 mg/dL (2.8-20.0) L 12/27/20 17:34 Urine Opiates Screen Negative 12/27/20 17:11 Urine Methadone Screen Negative 12/27/20 17:11 Acetaminophen 5.0 ug/mL (10.0-30.0) L 12/27/20 17:34 Ur Barbiturates Screen Negative 12/27/20 17:11 Ur Phencyclidine Scrn Negative 12/27/20 17:11 Ur Amphetamines Screen Negative 12/27/20 17:11 U Benzodiazepines Scrn Negative 12/27/20 17:11 Urine Cocaine Screen Negative 12/27/20 17:11 U Marijuana (THC) Screen Negative 12/27/20 17:11 Drugs of Abuse Note Disclamer 12/27/20 17:11 Plasma/Serum Alcohol < 0.01 % (0-0.07) 12/27/20 17:34 [place]/IV: Voiding Method Condom Catheter Active Medications - Current Medications Current Medications: Generic Name Dose Route Start Last Admin Trade Name Freq PRN Reason Stop Dose Admin Acetaminophen 650 mg 12/27/20 22:21 12/29/20 05:16 Acetaminophen 325 Mg Tab PO 650 mg Q4H PRN Administration Pain MILD(1-3)/Fever >100.5/CARRERA Al Hydrox/Mg Hydrox/Simethicone 30 ml 12/27/20 22:21 Alum-Mag Hydroxide-Simethicone [phone]/5ml Oral Liqd 30 Ml PO Q4H PRN Indigestion Amlodipine Besylate 2.5 mg 12/29/20 10:00 01/07/21 11:22 Amlodipine 5 Mg Tab PO 2.5 mg QDAY CHELLE Administration Aspirin 81 mg 12/29/20 10:00 01/07/21 11:22 Aspirin 81 Mg Tab Chew PO 81 mg QDAY CHELLE Administration Atorvastatin Calcium 40 mg 12/29/20 22:00 01/06/21 21:32 Atorvastatin 40 Mg Tab PO 40 mg QHS CHELLE Administration Cyanocobalamin 1,000 mcg 12/31/20 15:00 01/07/21 11:21 Cyanocobalamin (Vit B-12) 1000 Mcg Tab PO 1,000 mcg QDAY CHELLE Administration Enoxaparin Sodium 40 mg 12/28/20 10:00 01/07/21 11:21 Enoxaparin 40 Mg/0.4 Ml Inj SUB-Q 40 mg QDAY CHELLE Administration Folic Acid 1 mg 01/03/21 10:00 01/07/21 11:22 Folic Acid 1 Mg Tab PO 1 mg DAILY CHELLE Administration Hydralazine HCl 5 mg 12/27/20 22:35 12/29/20 12:05 Hydralazine 20 Mg/1 Ml Inj IV 5 mg Q4H PRN Administration Hypertension Hydrochlorothiazide 25 mg 12/29/20 10:00 01/07/21 11:21 Hydrochlorothiazide 25 Mg Tab PO 25 mg QDAY CHELLE Administration Ceftriaxone Sodium 2 gm in 100 mls @ 200 mls/hr 12/28/20 10:00 01/07/21 11:22 Rocephin/Ns 2 Gm/100 Ml IV 200 mls/hr DAILY CHELLE Administration Protocol Acyclovir 1,000 mg/ Sodium 120 mls @ 100 mls/hr 12/28/20 14:30 01/07/21 14:42 Chloride IV 100 mls/hr Q8HR CHELLE Administration Protocol Levetiracetam 500 mg 01/02/21 10:00 01/07/21 11:22 Levetiracetam 500 Mg Tab PO 500 mg BID CHELLE Administration Lorazepam 2 mg 12/30/20 11:00 12/30/20 22:21 Lorazepam 2 Mg/Ml Vial IV 2 mg Q1HR PRN Administration CIWA-Ar 8-15 Lorazepam 4 mg 12/30/20 11:00 Lorazepam 2 Mg/Ml Vial IV Q1HR PRN CIWA-Ar 16-25 Magnesium Hydroxide 30 ml 12/27/20 22:21 Magnesium Hydroxide (Mom) Oral Liqd Udc PO Q4H PRN Constipation Multivitamins/Minerals 1 each 01/03/21 10:00 01/07/21 11:22 Multivitamins,Ther W-Minerals Tab PO 1 each QDAY CHELLE Administration Naloxone HCl 0.1 mg 12/27/20 22:21 Naloxone 0.4 Mg/1 Ml Inj IV Q2MIN PRN Res Rate </= 8 or 02 SAT < 92% Ondansetron HCl 4 mg 12/27/20 22:21 Ondansetron 4 Mg/2 Ml Inj IV Q8H PRN Nausea And Vomiting Risperidone 1 mg 12/31/20 22:00 01/07/21 11:22 Risperidone 1 Mg Tab PO 1 mg BID CHELLE Administration Sodium Chloride 10 ml 12/28/20 10:00 01/07/21 11:23 Sodium Chloride 0.9% 10 Ml Flush Syringe IV 10 ml BID CHELLE Administration Sodium Chloride 10 ml 12/27/20 22:21 Sodium Chloride 0.9% 10 Ml Flush Syringe IV PRN PRN LINE FLUSH Thiamine HCl 100 mg 01/03/21 10:00 01/07/21 11:22 Thiamine 100 Mg Tab PO 100 mg QDAY CHELLE Administration Valproic Acid 250 mg 01/04/21 13:00 01/07/21 11:22 Valproic Acid 250 Mg/5 Ml Oral Liqd PO 250 mg DAILY CHELLE Administration Nutrition/Malnutrition Assess - Dietary Evaluation Nutrition/Malnutrition Findings: Nutrition Notes Start: 01/03/21 16:36 Freq: Status: Active Protocol: Document 01/03/21 16:36 GB (Rec: 01/03/21 16:43 GB [id number]) Nutrition Notes Need for Assessment generated from: LOS Initial or Follow up Assessment Current Diagnosis Hypertension Current Diet AMS, acute encephalopathy, schizophrenia Labs/Tests 12/31: creatinine 0.7, K 3.2 Pertinent Medications B12, folic acid, multivitamin/ mineral, NaCl 125ml/hr, thiamine HCl Height 6 ft Weight 112.8 kg [place] Body Weight (kg) 80.90 BMI 33.7 Weight change and time frame stable in hospital Weight Status Obese Subjective/Other Information PO intake recorded as 50-100%, tolerating meals well Percent of energy/protein needs met: PO intake of meals at 75% or greater meets 100% estimated energy needs. Burn Absent Trauma Absent GI Symptoms None Food Allergy No Skin Integrity/Comment no complications reported Current % PO Good (75-100%) Minimum of two criteria No #1 Nutrition Diagnosis No nutrition diagnosis at this time Etiology AMS, acute encephalopathy As Evidenced by Signs and Symptoms good po intake, stable weight in hospital Is patient on ventilator? No Is Patient Ambulatory and/or Out of Bed Yes REE-([facility]-ambulatory/OOB) [ 2575.300 [id number]] Kcal/Kg value to use for calculation 18 Approximate Energy Requirements Using 2030 kcal/Kg Calculation Used for Recommendations Kcal/kg Additional Notes protein: 0.8-1 g/kg @ 113k-113g Fluids: 1 ml/kcal or per MD Nutrition Intervention Change Diet Order: continue Nutrition Support: n/a Add Supplement/Snack (indicate name/kcal n/a /protein ) Goal #1 PO intake of meals to maintain 75% or greater daily for LOS Follow-Up By: 01/10/21 Additional Comments PO intake meals, weight
[2021-01-08] MEDS: ACYCLOVIR 1,000 MG in SODIUM CHLORIDE 0.9% 100 ML IV SCH ×3 (06:33→22:19)
[2021-01-08] MEDS: risperiDONE 1 MG TAB PO SCH ×2 (09:51→22:19)
[2021-01-08] MEDS: levETIRAcetam 500 MG TAB PO SCH ×2 (09:51→22:19)
[2021-01-08] MEDS: CYANOCOBALAMIN (VIT B-12) 1000 MCG TAB PO SCH (09:51)
[2021-01-08] MEDS: amLODIPine 5 MG TAB PO SCH (09:52)
[2021-01-08] MEDS: hydroCHLOROthiazide 25 MG TAB PO SCH (09:52)
[2021-01-08] MEDS: THIAMINE 100 MG TAB PO SCH (09:52)
[2021-01-08] MEDS: MULTIVITAMINS,THER W-MINERALS TAB PO SCH (09:52)
[2021-01-08] MEDS: ASPIRIN 81 MG TAB CHEW PO SCH (09:52)
[2021-01-08] MEDS: FOLIC ACID 1 MG TAB PO SCH (09:53)
[2021-01-08] MEDS: VALPROIC ACID 250 MG/5 ML ORAL LIQD PO SCH (09:53)
[2021-01-08] MEDS: cefTRIAXone/NS 2 GM/100 ML 2 GM/100 ML BAG IV SCH (09:53)
[2021-01-08] MEDS: ENOXAPARIN 40 MG/0.4 ML INJ SUB-Q SCH (09:53)
--- NOTE | 2021-01-08 12:21 | Progress Note ---
Assessment and Plan Cultures: Blood cultures 12/30/2020 no growth so far A/P: 60 yo male, admitted after EMS found the patient in the aguir[place], unresponsive: #Fever: Resolved. Etiology unclear. No leukocytosis. UA not impressive for UTI. Chest x-ray did not reveal any pneumonia. Patient was found in the aguir[place], unresponsive. Mental status slowly getting better. No thrombocytopenia or transaminitis to suggest tickborne illness. Acute bacterial meningitis seems unlikely. #Acute encephalopathy: CT head without acute findings. urinary tox screen was negative. ? seizure (observed involunary jerking left am) ?ETOH withdrawal. 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 No LP or MRI. Continue empiric therapy through 01/10 then stop. ID will sign off. Please call questions. Dasia Burk MD [facility] ([facility]) O: [phone] F: [phone] Subjective Date of service: 01/08/21 Principal diagnosis: AMS fever Interval history: Afebrile, normal white count. Objective - Exam Narrative Exam: General appearance: Alert in NAD pleasant Eyes: anicteric sclerae, moist conjunctivae; no lid-lag; PERRLA HENT: Normocephalic, Atraumatic; normal external ears, nares open, oropharynx clear with moist mucous membranes and no oral thrush Neck: supple, tracheal midline, no JVD Lungs: Clear to auscultation CV: RRR no murmur Abdomen: Soft nontender Extremities: no edema, no cyanosis Skin: No rash. Psych: no agitated Neuro: Alert, less confused than previous. - Constitutional Vitals: Vital Signs Temp Pulse Resp BP Pulse Ox 97.5 F L 66 16 119/72 94 01/08/21 07:51 01/08/21 07:51 01/08/21 07:51 01/08/21 07:51 01/08/21 07:51 Temperature -Last 24 Hours Temperature 97.5 F Temperature 98.2 F Temperature 98.4 F Temperature 98.5 F Temperature 98.2 F - Labs CBC & Chem 7: 12/31/20 05:02 01/07/21 04:41
--- NOTE | 2021-01-08 23:20 | Progress Note ---
Assessment and Plan --Acute metabolic ncephalopathy CT of the head and urine drug test-negative MRI of brain ordered unable to do , no consent, agitated and restrained. Chest x-ray negative for acute finding Consulted neurologist --Febrile illness; in the setting of an encephalopathy on admission ID evaluated the patient, treated with empiric antibiotics, requested LP/MRI, no family available, to give consent And patient is agitated and confused requiring restraints --Hyponatremia/resolved hyponaremia mild-likely 2/2 dehydration continue IV hydration -- Hypertension Continue current antihypertensives. Monitor blood pressure PRN Hydralazine -- Possible Seizure disorder Seizure precautions, antiepileptic medications, possible EEG, neurology consult --?ETOH abuse thiamine, folic acid Closely monitor for alcohol withdrawal symptoms. --History of schizophrenia Continue psych medications psych consulted Closely monitor --DVT prophylaxis Subcutaneous Lovenox Daily Hospital course: 12/28: Patient now with fever of unknown origin. Still confused discussed with ID will obtain lumbar puncture. 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 MRI is pending. 12/29: Still with low grade fever, continue abx, follow cultures, LP to be done on thursday due to no Radiologist, Neurology input noted. Swallow eval ok, continue diet. start on HCTZ and Norvasc for HTN. No history on patient available here yet.] Want CT of the head read as negative during neurologist did review any suspect an acute ischemic stroke starting the patient on aspirin 81 mg daily unfortunately this was not started yesterday not sure why but will start that today. EEG is also ordered for possible subclinical seizures. He refused an ABG. Continue restraints as 12/30: Patient still with confusion, I wonder if he has some etoh issues, will go ahead and start on CIWA protocol in addition to Banana bag. CONTINUE restraints. 12/31: I was able to obtain records from [facility] as patient was recently admitted there on December 20 he was discharged on vitamin B12 1000 mcg daily, ferrous sulfate 325 mg twice a day and Keppra 1000 mg every 12 hours in addition to rest. Do not 1 tablet 2 times a day of 2 mg each. He does have underlying schizophrenia prior history of cocaine abuse and also history of seizure disorder and severe neurocognitive disorder. His court appointed [employer] agent is Grace Padilla phone #[phone]. At the time of his discharge from [facility] he was supposed to be placed in a personal skilled nursing as he has a history of wandering. I am not sure if this was done. As he was brought to us "found in the [place]". Clinically he is showing some improvement but with the new information will obtain psych consultation. 01/01; could not do the MRI/LP due to his severe agitation And noncooperation, will try MRI study again tomorrow with Ativan 01/02; radiology cannot do lumbar puncture/MRI study due to patient's severe agitation requiring four-point restraints And no family/contact lens assistant available to consent for the above tests when patient is calm and stable 01/03; patient continues to be agitated requiring restraints, noncooperative and unsteady for lumbar punctures and MRI Patient has no family to give consent, case management informed 01/04; patient is more calm, however gets agitated, CM informed me that patient's Michelle Padilla court appointed guardian, will call me To discuss and give consent for the tests and procedures ,waiting for patient's guardian call 01/05; still waiting for patient's guardian Indra Padilla to call and give consent for MRI/LP 01/06: Did not get a call from the patient's guardian Indra Padilla [Case manag ement stated that patient's guardian will call me ] 01/07; patient's guardian Michelle Padilla did not contact me , CM could not reach her. No consent for LP/MRI Possible placement to [facility]. Discharge planning per case management 01/08: Patient remains restrained, continue to follow clinically. manager department working on placement Subjective Date of service: 01/08/21 Principal diagnosis: AMS fever Interval history: Patient seen and examined. Medical records and medication list reviewed. No acute event overnight noted by the RN. Patient denies any chest pain or difficulty breathing. Patient is tolerating diet. Patient remains confused and restrained Discussed plan of care at bedside with patient. Objective - Exam Narrative Exam: GENERAL: well-developed and well-nourished -[place] male lying on bed appeared to be in no discomfort. Patient is restrained HEENT: Normocephalic. Atraumatic. No conjunctival congestion or icterus. Patient has moist mucous membranes. NECK: Supple. Trachea midline. CHEST/LUNGS: Clear to auscultated bilaterally, breathing nonlabored. No wheezes crackles or rhonchi. HEART/CARDIOVASCULAR: Regular in rate and rhythm. S1 and S2 positive. ABDOMEN: Abdomen is soft, nontender. Patient has normal bowel sounds. SKIN: There is no rash. Warm and dry. NEURO: No focal motor deficit. MUSCULOSKELETAL: No joint effusion or tenderness. EXTRIMITY: No edema, no cyanosis or clubbing. PSYCH: Confused. - Constitutional Vitals: Vital Signs - 12hr 01/08/21 01/08/21 01/08/21 11:52 12:00 15:26 Temperature 97.9 F 98.7 F Pulse Rate 72 80 80 Respiratory 18 18 Rate Blood Pressure 106/68 119/76 O2 Sat by Pulse 98 96 Oximetry 01/08/21 01/08/21 19:17 20:29 Temperature 98.6 F Pulse Rate 87 Respiratory 18 Rate Blood Pressure 135/73 O2 Sat by Pulse 95 96 Oximetry - Labs CBC & Chem 7: 12/31/20 05:02 01/07/21 04:41
[2021-01-09] MEDS: ACYCLOVIR 1,000 MG in SODIUM CHLORIDE 0.9% 100 ML IV SCH ×3 (05:41→22:37)
[2021-01-09] MEDS: ENOXAPARIN 40 MG/0.4 ML INJ SUB-Q SCH (10:25)
[2021-01-09] MEDS: cefTRIAXone/NS 2 GM/100 ML 2 GM/100 ML BAG IV SCH (10:25)
[2021-01-09] MEDS: CYANOCOBALAMIN (VIT B-12) 1000 MCG TAB PO SCH (10:27)
[2021-01-09] MEDS: VALPROIC ACID 250 MG/5 ML ORAL LIQD PO SCH (10:27)
[2021-01-09] MEDS: levETIRAcetam 500 MG TAB PO SCH ×2 (10:28→22:31)
[2021-01-09] MEDS: ASPIRIN 81 MG TAB CHEW PO SCH (10:28)
[2021-01-09] MEDS: FOLIC ACID 1 MG TAB PO SCH (10:28)
[2021-01-09] MEDS: MULTIVITAMINS,THER W-MINERALS TAB PO SCH (10:28)
[2021-01-09] MEDS: risperiDONE 1 MG TAB PO SCH ×2 (10:28→22:31)
[2021-01-09] MEDS: THIAMINE 100 MG TAB PO SCH (10:28)
[2021-01-09] MEDS: hydroCHLOROthiazide 25 MG TAB PO SCH (10:29)
[2021-01-09] MEDS: amLODIPine 5 MG TAB PO SCH (10:29)
--- NOTE | 2021-01-10 00:02 | Progress Note ---
Assessment and Plan --Acute metabolic ncephalopathy CT of the head and urine drug test-negative MRI of brain ordered unable to do , no consent, agitated and restrained. Chest x-ray negative for acute finding Consulted neurologist --Febrile illness; in the setting of an encephalopathy on admission ID evaluated the patient, treated with empiric antibiotics, requested LP/MRI, no family available, to give consent And patient is agitated and confused requiring restraints --Hyponatremia/resolved hyponaremia mild-likely 2/2 dehydration continue IV hydration -- Hypertension Continue current antihypertensives. Monitor blood pressure PRN Hydralazine -- Possible Seizure disorder Seizure precautions, antiepileptic medications, possible EEG, neurology consult --?ETOH abuse thiamine, folic acid Closely monitor for alcohol withdrawal symptoms. --History of schizophrenia Continue psych medications psych consulted Closely monitor --DVT prophylaxis Subcutaneous Lovenox Daily Hospital course: 12/28: Patient now with fever of unknown origin. Still confused discussed with ID will obtain lumbar puncture. 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 MRI is pending. 12/29: Still with low grade fever, continue abx, follow cultures, LP to be done on thursday due to no Radiologist, Neurology input noted. Swallow eval ok, continue diet. start on HCTZ and Norvasc for HTN. No history on patient available here yet.] Want CT of the head read as negative during neurologist did review any suspect an acute ischemic stroke starting the patient on aspirin 81 mg daily unfortunately this was not started yesterday not sure why but will start that today. EEG is also ordered for possible subclinical seizures. He refused an ABG. Continue restraints as 12/30: Patient still with confusion, I wonder if he has some etoh issues, will go ahead and start on CIWA protocol in addition to Banana bag. CONTINUE restraints. 12/31: I was able to obtain records from [facility] as patient was recently admitted there on December 20 he was discharged on vitamin B12 1000 mcg daily, ferrous sulfate 325 mg twice a day and Keppra 1000 mg every 12 hours in addition to rest. Do not 1 tablet 2 times a day of 2 mg each. He does have underlying schizophrenia prior history of cocaine abuse and also history of seizure disorder and severe neurocognitive disorder. His court appointed [employer] agent is Grace Padilla phone #[phone]. At the time of his discharge from [facility] he was supposed to be placed in a personal detention as he has a history of wandering. I am not sure if this was done. As he was brought to us "found in the [place]". Clinically he is showing some improvement but with the new information will obtain psych consultation. 01/01; could not do the MRI/LP due to his severe agitation And noncooperation, will try MRI study again tomorrow with Ativan 01/02; radiology cannot do lumbar puncture/MRI study due to patient's severe agitation requiring four-point restraints And no family/contact center team lead available to consent for the above tests when patient is calm and stable 01/03; patient continues to be agitated requiring restraints, noncooperative and unsteady for lumbar punctures and MRI Patient has no family to give consent, case management informed 01/04; patient is more calm, however gets agitated, CM informed me that patient's Michelle Padilla court appointed guardian, will call me To discuss and give consent for the tests and procedures ,waiting for patient's guardian call 01/05; still waiting for patient's guardian Indra Padilla to call and give consent for MRI/LP 01/06: Did not get a call from the patient's guardian Indra Padilla [Case pari gaspar stated that patient's guardian will call me ] 01/07; patient's guardian Michelle Padilla did not contact me , CM could not reach her. No consent for LP/MRI Possible placement to [facility]. Discharge planning per case management 01/08: Patient remains restrained, continue to follow clinically. manager client working on placement 01/09: customer pricing manager working on SNF placement, follow clinically, patient remains confused and requiring restraints. Continue empiric antibiotics per ID recommendation. Subjective Date of service: 01/09/21 Principal diagnosis: AMS fever Interval history: Patient seen and examined. Medical records and medication list reviewed. No acute event overnight noted by the RN. Patient denies any chest pain or difficulty breathing. Patient is tolerating diet. Patient remains confused and restrained Discussed plan of care at bedside with patient. Objective - Exam Narrative Exam: GENERAL: well-developed and well-nourished -[place] male lying on bed appeared to be in no discomfort. Patient is restrained HEENT: Normocephalic. Atraumatic. No conjunctival congestion or icterus. Patient has moist mucous membranes. NECK: Supple. Trachea midline. CHEST/LUNGS: Clear to auscultated bilaterally, breathing nonlabored. No wheezes crackles or rhonchi. HEART/CARDIOVASCULAR: Regular in rate and rhythm. S1 and S2 positive. ABDOMEN: Abdomen is soft, nontender. Patient has normal bowel sounds. SKIN: There is no rash. Warm and dry. NEURO: No focal motor deficit. MUSCULOSKELETAL: No joint effusion or tenderness. EXTRIMITY: No edema, no cyanosis or clubbing. PSYCH: Confused. - Constitutional Vitals: Vital Signs - 12hr 01/09/21 01/09/21 01/09/21 16:06 19:27 23:41 Temperature 97.7 F 98.6 F 98.4 F Pulse Rate 89 96 H 68 Respiratory 14 18 18 Rate Blood Pressure 112/69 112/68 Blood Pressure 110/68 [Right] O2 Sat by Pulse 96 96 99 Oximetry - Labs CBC & Chem 7: 12/31/20 05:02 01/07/21 04:41
[2021-01-10] MEDS: ACYCLOVIR 1,000 MG in SODIUM CHLORIDE 0.9% 100 ML IV SCH ×3 (05:08→22:32)
--- NOTE | 2021-01-10 11:59 | Progress Note ---
Subjective - Reason for Consult Consult date: 01/10/21 Reason for consult: AMS - Chief Complaint Chief complaint: The patient was seen today. He is in restraints. He is confused, but pleasant. He says he is "working hard." He denies SI/HI or hallucinations of any kin. REVIEW OF SYSTEMS: Unable to assess MENTAL STATUS EXAMINATION: Unable to assess Assessment and Plan (1) encounter for screening examination for mental health and behavioral disorder- Z13.30 Current Visit: Yes Status: Acute Treatment Plan Continue Valproic liquid 250mg po daily Agree with rest of meds. The patient to comply with previously prescribed medications Risks, benefits and alternatives of medications discussed with the patient, questions answered and consent obtained from patient. PSYCHOTHERAPY: Supportive psychotherapy provided MEDICAL: Per primary team DELIRIUM PRECAUTIONS: Please re-orient patient frequently, keep lights on during the day, and minimize benzodiazepines and opiates as these medications could worsen patient's confusion. ANIMAL SERVICES OFFICER: Defer to primary DISPOSITION: Do not recommend acute inpatient psychiatric hospitalization at this time. FOLLOW-UP: Will follow for medication management. Post hospital care: primary care provider, psychiatric provider Case staffed with Dr. Solorzano Mental Status Exam - Vital signs Last Vital Signs Temp 98.4 F 01/09/21 23:41 Pulse 52 L 01/10/21 04:00 Resp 18 01/09/21 23:41 BP 110/68 01/09/21 23:41 Pulse Ox 99 01/09/21 23:41
[2021-01-10] MEDS: MULTIVITAMINS,THER W-MINERALS TAB PO SCH (15:27)
[2021-01-10] MEDS: risperiDONE 1 MG TAB PO SCH ×2 (15:28→22:32)
[2021-01-10] MEDS: amLODIPine 5 MG TAB PO SCH (15:28)
[2021-01-10] MEDS: FOLIC ACID 1 MG TAB PO SCH (15:29)
[2021-01-10] MEDS: levETIRAcetam 500 MG TAB PO SCH ×2 (15:29→22:33)
[2021-01-10] MEDS: ENOXAPARIN 40 MG/0.4 ML INJ SUB-Q SCH (15:29)
[2021-01-10] MEDS: CYANOCOBALAMIN (VIT B-12) 1000 MCG TAB PO SCH (15:29)
[2021-01-10] MEDS: ASPIRIN 81 MG TAB CHEW PO SCH (15:29)
[2021-01-10] MEDS: THIAMINE 100 MG TAB PO SCH (15:29)
[2021-01-10] MEDS: VALPROIC ACID 250 MG/5 ML ORAL LIQD PO SCH (15:30)
[2021-01-10] MEDS: hydroCHLOROthiazide 25 MG TAB PO SCH (15:41)
[2021-01-10] MEDS: cefTRIAXone/NS 2 GM/100 ML 2 GM/100 ML BAG IV SCH (15:42)
--- NOTE | 2021-01-10 16:43 | Progress Note ---
Assessment and Plan --Acute metabolic ncephalopathy CT of the head and urine drug test-negative MRI of brain ordered unable to do , no consent, agitated and restrained. Chest x-ray negative for acute finding Consulted neurologist --Febrile illness; in the setting of an encephalopathy on admission ID evaluated the patient, treated with empiric antibiotics, requested LP/MRI, no family available, to give consent And patient is agitated and confused requiring restraints --Hyponatremia/resolved hyponaremia mild-likely 2/2 dehydration continue IV hydration -- Hypertension Continue current antihypertensives. Monitor blood pressure PRN Hydralazine -- Possible Seizure disorder Seizure precautions, antiepileptic medications, possible EEG, neurology consult --?ETOH abuse thiamine, folic acid Closely monitor for alcohol withdrawal symptoms. --History of schizophrenia Continue psych medications psych consulted Closely monitor --DVT prophylaxis Subcutaneous Lovenox Daily Hospital course: 12/28: Patient now with fever of unknown origin. Still confused discussed with ID will obtain lumbar puncture. 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 MRI is pending. 12/29: Still with low grade fever, continue abx, follow cultures, LP to be done on thursday due to no Radiologist, Neurology input noted. Swallow eval ok, continue diet. start on HCTZ and Norvasc for HTN. No history on patient available here yet.] Want CT of the head read as negative during neurologist did review any suspect an acute ischemic stroke starting the patient on aspirin 81 mg daily unfortunately this was not started yesterday not sure why but will start that today. EEG is also ordered for possible subclinical seizures. He refused an ABG. Continue restraints as 12/30: Patient still with confusion, I wonder if he has some etoh issues, will go ahead and start on CIWA protocol in addition to Banana bag. CONTINUE restraints. 12/31: I was able to obtain records from [facility] as patient was recently admitted there on December 20 he was discharged on vitamin B12 1000 mcg daily, ferrous sulfate 325 mg twice a day and Keppra 1000 mg every 12 hours in addition to rest. Do not 1 tablet 2 times a day of 2 mg each. He does have underlying schizophrenia prior history of cocaine abuse and also history of seizure disorder and severe neurocognitive disorder. His court appointed [employer] agent is Grace Padilla phone #[phone]. At the time of his discharge from [facility] he was supposed to be placed in a personal fdc as he has a history of wandering. I am not sure if this was done. As he was brought to us "found [place]". Clinically he is showing some improvement but with the new information will obtain psych consultation. 01/01; could not do the MRI/LP due to his severe agitation And noncooperation, will try MRI study again tomorrow with Ativan 01/02; radiology cannot do lumbar puncture/MRI study due to patient's severe agitation requiring four-point restraints And no family/cashier and salesperson available to consent for the above tests when patient is calm and stable 01/03; patient continues to be agitated requiring restraints, noncooperative and unsteady for lumbar punctures and MRI Patient has no family to give consent, case management informed 01/04; patient is more calm, however gets agitated, CM informed me that patient's Michelle Padilla court appointed guardian, will call me To discuss and give consent for the tests and procedures ,waiting for patient's guardian call 01/05; still waiting for patient's guardian Indra Padilla to call and give consent for MRI/LP 01/06: Did not get a call from the patient's guardian Indra Padilla [Case pari gaspar stated that patient's guardian will call me ] 01/07; patient's guardian Michelle Padilla did not contact me , CM could not reach her. No consent for LP/MRI Possible placement to [facility]. Discharge planning per case management 01/08: Patient remains restrained, continue to follow clinically. tobacco warehouse manager working on placement 01/09: family independence case manager working on SNF placement, follow clinically, patient remains confused and requiring restraints. Continue empiric antibiotics per ID recommendation. 01/10: Last day of antibiotic today, pending SNF placement Subjective Date of service: 01/10/21 Principal diagnosis: AMS fever Interval history: Patient seen and examined. Medical records and medication list reviewed. No acute event overnight noted by the RN. Patient denies any chest pain or difficulty breathing. Patient is tolerating diet. Patient remains confused and restrained Discussed plan of care at bedside with patient. Objective - Exam Narrative Exam: GENERAL: well-developed and well-nourished -[place] male lying on bed appeared to be in no discomfort. Patient is restrained HEENT: Normocephalic. Atraumatic. No conjunctival congestion or icterus. Patient has moist mucous membranes. NECK: Supple. Trachea midline. CHEST/LUNGS: Clear to auscultated bilaterally, breathing nonlabored. No wheezes crackles or rhonchi. HEART/CARDIOVASCULAR: Regular in rate and rhythm. S1 and S2 positive. ABDOMEN: Abdomen is soft, nontender. Patient has normal bowel sounds. SKIN: There is no rash. Warm and dry. NEURO: No focal motor deficit. MUSCULOSKELETAL: No joint effusion or tenderness. EXTRIMITY: No edema, no cyanosis or clubbing. PSYCH: Confused. - Constitutional Vitals: Vital Signs - 12hr 01/10/21 01/10/21 15:28 16:05 Temperature 98.0 F Pulse Rate 78 68 Respiratory 18 Rate Blood Pressure 116/69 O2 Sat by Pulse 97 Oximetry - Labs CBC & Chem 7: 12/31/20 05:02 01/07/21 04:41
[2021-01-11] MEDS: ENOXAPARIN 40 MG/0.4 ML INJ SUB-Q SCH (10:13)
[2021-01-11] MEDS: levETIRAcetam 500 MG TAB PO SCH ×2 (10:14→21:46)
[2021-01-11] MEDS: CYANOCOBALAMIN (VIT B-12) 1000 MCG TAB PO SCH (10:14)
[2021-01-11] MEDS: risperiDONE 1 MG TAB PO SCH ×2 (10:14→21:46)
[2021-01-11] MEDS: ASPIRIN 81 MG TAB CHEW PO SCH (10:14)
[2021-01-11] MEDS: amLODIPine 5 MG TAB PO SCH (10:14)
[2021-01-11] MEDS: FOLIC ACID 1 MG TAB PO SCH (10:14)
[2021-01-11] MEDS: MULTIVITAMINS,THER W-MINERALS TAB PO SCH (10:14)
[2021-01-11] MEDS: VALPROIC ACID 250 MG/5 ML ORAL LIQD PO SCH (10:14)
[2021-01-11] MEDS: hydroCHLOROthiazide 25 MG TAB PO SCH (10:14)
[2021-01-11] MEDS: THIAMINE 100 MG TAB PO SCH (10:14)
--- NOTE | 2021-01-12 08:58 | Progress Note ---
Assessment and Plan --Acute metabolic ncephalopathy CT of the head and urine drug test-negative MRI of brain ordered unable to do due to lack of consent and patient remains confused Chest x-ray negative for acute finding Consulted neurologist --Febrile illness; in the setting of an encephalopathy on admission ID evaluated the patient, treated with empiric antibiotics, requested LP/MRI, no family available, to give consent And patient is agitated and confused requiring restraints --Hyponatremia/resolved hyponaremia mild-likely 2/2 dehydration continue IV hydration -- Hypertension Continue current antihypertensives. Monitor blood pressure PRN Hydralazine -- Possible Seizure disorder Seizure precautions, antiepileptic medications, neurology consult --?ETOH abuse thiamine, folic acid Closely monitor for alcohol withdrawal symptoms. --History of schizophrenia Continue psych medications psych consulted Closely monitor --DVT prophylaxis Subcutaneous Lovenox Daily Hospital course: 12/28: Patient now with fever of unknown origin. Still confused discussed with ID will obtain lumbar puncture. 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 MRI is pending. 12/29: Still with low grade fever, continue abx, follow cultures, LP to be done on thursday due to no Radiologist, Neurology input noted. Swallow eval ok, continue diet. start on HCTZ and Norvasc for HTN. No history on patient available here yet.] Want CT of the head read as negative during neurologist did review any suspect an acute ischemic stroke starting the patient on aspirin 81 mg daily unfortunately this was not started yesterday not sure why but will start that today. EEG is also ordered for possible subclinical seizures. He refused an ABG. Continue restraints as 12/30: Patient still with confusion, I wonder if he has some etoh issues, will go ahead and start on CIWA protocol in addition to Banana bag. CONTINUE restraints. 12/31: I was able to obtain records from [facility] as patient was recently admitted there on December 20 he was discharged on vitamin B12 1000 mcg daily, ferrous sulfate 325 mg twice a day and Keppra 1000 mg every 12 hours in addition to rest. Do not 1 tablet 2 times a day of 2 mg each. He does have underlying schizophrenia prior history of cocaine abuse and also history of seizure disorder and severe neurocognitive disorder. His court appointed [employer] agent is Grace Padilla phone #[phone]. At the time of his discharge from [place] he was supposed to be placed in a personal intermediate as he has a history of wandering. I am not sure if this was done. As he was brought to us "found in the [place]". Clinically he is showing some improvement but with the new information will obtain psych consultation. 01/01; could not do the MRI/LP due to his severe agitation And noncooperation, will try MRI study again tomorrow with Ativan 01/02; radiology cannot do lumbar puncture/MRI study due to patient's severe agitation requiring four-point restraints And no family/contact printer dry film available to consent for the above tests when patient is calm and stable 01/03; patient continues to be agitated requiring restraints, noncooperative and unsteady for lumbar punctures and MRI Patient has no family to give consent, case management informed 01/04; patient is more calm, however gets agitated, CM informed me that patient's Michelle Padilla court appointed guardian, will call me To discuss and give consent for the tests and procedures ,waiting for patient's guardian call 01/05; still waiting for patient's guardian Indra Padilla to call and give consent for MRI/LP 01/06: Did not get a call from the patient's guardian Indra Padilla [Case managem ent stated that patient's guardian will call me ] 01/07; patient's guardian Michelle Padilla did not contact me , CM could not reach her. No consent for LP/MRI Possible placement to [facility]. Discharge planning per case management 01/08: Patient remains restrained, continue to follow clinically. fleet maintenance manager working on placement 01/09: case briefer working on SNF placement, follow clinically, patient remains confused and requiring restraints. Continue empiric antibiotics per ID recommendation. 01/10: Last day of antibiotic today, pending SNF placement 01/11: Completed empiric antibiotics, pending SNF placement, patient remains confused. We will monitor off restrain, continue supportive care Subjective Date of service: 01/11/21 Principal diagnosis: AMS fever Interval history: Patient seen and examined. Medical records and medication list reviewed. No acute event overnight noted by the RN. Patient denies any chest pain or difficulty breathing. Patient is tolerating diet. Patient remains confused and restrained Discussed plan of care at bedside with patient. Objective - Exam Narrative Exam: GENERAL: well-developed and well-nourished -Turkmen male lying on bed appeared to be in no discomfort. Patient is restrained HEENT: Normocephalic. Atraumatic. No conjunctival congestion or icterus. Patient has moist mucous membranes. NECK: Supple. Trachea midline. CHEST/LUNGS: Clear to auscultated bilaterally, breathing nonlabored. No wheezes crackles or rhonchi. HEART/CARDIOVASCULAR: Regular in rate and rhythm. S1 and S2 positive. ABDOMEN: Abdomen is soft, nontender. Patient has normal bowel sounds. SKIN: There is no rash. Warm and dry. NEURO: No focal motor deficit. MUSCULOSKELETAL: No joint effusion or tenderness. EXTRIMITY: No edema, no cyanosis or clubbing. PSYCH: Confused. - Constitutional Vitals: Vital Signs - 12hr 01/11/21 01/11/21 01/12/21 22:00 23:04 03:27 Temperature 98.0 F 98.1 F Pulse Rate 72 74 Respiratory 14 14 Rate Blood Pressure 119/67 101/66 O2 Sat by Pulse 93 96 97 Oximetry 01/12/21 01/12/21 04:00 08:11 Temperature 97.7 F Pulse Rate 97 H 69 Respiratory 18 Rate Blood Pressure 112/71 O2 Sat by Pulse 96 Oximetry - Labs CBC & Chem 7: 12/31/20 05:02 01/07/21 04:41
[2021-01-12] MEDS: FOLIC ACID 1 MG TAB PO SCH (09:00)
[2021-01-12] MEDS: VALPROIC ACID 250 MG/5 ML ORAL LIQD PO SCH (09:00)
[2021-01-12] MEDS: ENOXAPARIN 40 MG/0.4 ML INJ SUB-Q SCH (09:00)
[2021-01-12] MEDS: amLODIPine 5 MG TAB PO SCH (09:01)
[2021-01-12] MEDS: MULTIVITAMINS,THER W-MINERALS TAB PO SCH (09:01)
[2021-01-12] MEDS: levETIRAcetam 500 MG TAB PO SCH ×2 (09:01→22:41)
[2021-01-12] MEDS: CYANOCOBALAMIN (VIT B-12) 1000 MCG TAB PO SCH (09:01)
[2021-01-12] MEDS: ASPIRIN 81 MG TAB CHEW PO SCH (09:01)
[2021-01-12] MEDS: hydroCHLOROthiazide 25 MG TAB PO SCH (09:01)
[2021-01-12] MEDS: risperiDONE 1 MG TAB PO SCH ×2 (09:01→22:41)
[2021-01-12] MEDS: THIAMINE 100 MG TAB PO SCH (09:01)
--- NOTE | 2021-01-12 12:47 | Progress Note ---
Subjective - Reason for Consult Consult date: 01/12/21 Reason for consult: Mental health evaluation - Chief Complaint Chief complaint: The patient was seen today. He continue to be confused, but pleasant. He oriented to self. He denies SI/HI or hallucinations. REVIEW OF SYSTEMS: Unable to assess MENTAL STATUS EXAMINATION: Unable to assess Assessment and Plan (1) encounter for screening examination for mental health and behavioral disorder- Z13.30 Current Visit: Yes Status: Acute Treatment Plan Continue Valproic liquid 250mg po daily Agree with rest of meds. The patient to comply with previously prescribed medications Risks, benefits and alternatives of medications discussed with the patient, questions answered and consent obtained from patient. PSYCHOTHERAPY: Supportive psychotherapy provided MEDICAL: Per primary team DELIRIUM PRECAUTIONS: Please re-orient patient frequently, keep lights on during the day, and minimize benzodiazepines and opiates as these medications could worsen patient's confusion. WATER MAIN INSTALLER HELPER: Defer to primary DISPOSITION: Do not recommend acute inpatient psychiatric hospitalization at this time. FOLLOW-UP: Will follow for medication management. Post hospital care: primary care provider, psychiatric provider Case staffed with Dr. Solorzano Mental Status Exam - Vital signs Last Vital Signs Temp 97.7 F 01/12/21 08:11 Pulse 79 01/12/21 10:00 Resp 17 01/12/21 10:00 BP 112/71 01/12/21 08:11 Pulse Ox 93 01/12/21 10:00
--- NOTE | 2021-01-12 17:16 | Progress Note ---
Assessment and Plan --Acute metabolic ncephalopathy CT of the head and urine drug test-negative MRI of brain ordered unable to do due to lack of consent and patient remains confused Chest x-ray negative for acute finding Consulted neurologist --Febrile illness; in the setting of an encephalopathy on admission ID evaluated the patient, treated with empiric antibiotics, requested LP/MRI, no family available, to give consent And patient is agitated and confused requiring restraints --Hyponatremia/resolved hyponaremia mild-likely 2/2 dehydration continue IV hydration -- Hypertension Continue current antihypertensives. Monitor blood pressure PRN Hydralazine -- Possible Seizure disorder Seizure precautions, antiepileptic medications, neurology consult --?ETOH abuse thiamine, folic acid Closely monitor for alcohol withdrawal symptoms. --History of schizophrenia Continue psych medications psych consulted Closely monitor --DVT prophylaxis Subcutaneous Lovenox Daily Hospital course: 12/28: Patient now with fever of unknown origin. Still confused discussed with ID will obtain lumbar puncture. 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 MRI is pending. 12/29: Still with low grade fever, continue abx, follow cultures, LP to be done on thursday due to no Radiologist, Neurology input noted. Swallow eval ok, continue diet. start on HCTZ and Norvasc for HTN. No history on patient available here yet.] Want CT of the head read as negative during neurologist did review any suspect an acute ischemic stroke starting the patient on aspirin 81 mg daily unfortunately this was not started yesterday not sure why but will start that today. EEG is also ordered for possible subclinical seizures. He refused an ABG. Continue restraints as 12/30: Patient still with confusion, I wonder if he has some etoh issues, will go ahead and start on CIWA protocol in addition to Banana bag. CONTINUE restraints. 12/31: I was able to obtain records from [facility] as patient was recently admitted there on December 20 he was discharged on vitamin B12 1000 mcg daily, ferrous sulfate 325 mg twice a day and Keppra 1000 mg every 12 hours in addition to rest. Do not 1 tablet 2 times a day of 2 mg each. He does have underlying schizophrenia prior history of cocaine abuse and also history of seizure disorder and severe neurocognitive disorder. His court appointed [employer] agent is Grace Padilla phone #[phone]. At the time of his discharge from [place] he was supposed to be placed in a personal senior care as he has a history of wandering. I am not sure if this was done. As he was brought to us "found in the [place]". Clinically he is showing some improvement but with the new information will obtain psych consultation. 01/01; could not do the MRI/LP due to his severe agitation And noncooperation, will try MRI study again tomorrow with Ativan 01/02; radiology cannot do lumbar puncture/MRI study due to patient's severe agitation requiring four-point restraints And no family/surgical appliances salesperson available to consent for the above tests when patient is calm and stable 01/03; patient continues to be agitated requiring restraints, noncooperative and unsteady for lumbar punctures and MRI Patient has no family to give consent, case management informed 01/04; patient is more calm, however gets agitated, CM informed me that patient's Michelle Padilla court appointed guardian, will call me To discuss and give consent for the tests and procedures ,waiting for patient's guardian call 01/05; still waiting for patient's guardian Indra Padilla to call and give consent for MRI/LP 01/06: Did not get a call from the patient's guardian Indra Padilla [Case manageme nt stated that patient's guardian will call me ] 01/07; patient's guardian Michelle Padilla did not contact me , CM could not reach her. No consent for LP/MRI Possible placement to [facility] [place]. Discharge planning per case management 01/08: Patient remains restrained, continue to follow clinically. manager learning working on placement 01/09: bilingual patient support caseworker working on SNF placement, follow clinically, patient remains confused and requiring restraints. Continue empiric antibiotics per ID recommendation. 01/10: Last day of antibiotic today, pending SNF placement 01/11: Completed empiric antibiotics, pending SNF placement, patient remains confused. We will monitor off restrain, continue supportive care 01/12: Pending SNF placement, continue to monitor off restrain, provide s upportive care Subjective Date of service: 01/12/21 Principal diagnosis: AMS fever Interval history: Patient seen and examined. Medical records and medication list reviewed. No acute event overnight noted by the RN. Patient denies any chest pain or difficulty breathing. Patient is tolerating diet. Patient remains confused but off restrain Discussed plan of care at bedside with patient. Objective - Exam Narrative Exam: GENERAL: well-developed and well-nourished -Austrian male lying on bed appeared to be in no discomfort. Patient is restrained HEENT: Normocephalic. Atraumatic. No conjunctival congestion or icterus. Patient has moist mucous membranes. NECK: Supple. Trachea midline. CHEST/LUNGS: Clear to auscultated bilaterally, breathing nonlabored. No wheezes crackles or rhonchi. HEART/CARDIOVASCULAR: Regular in rate and rhythm. S1 and S2 positive. ABDOMEN: Abdomen is soft, nontender. Patient has normal bowel sounds. SKIN: There is no rash. Warm and dry. NEURO: No focal motor deficit. MUSCULOSKELETAL: No joint effusion or tenderness. EXTRIMITY: No edema, no cyanosis or clubbing. PSYCH: Confused. - Constitutional Vitals: Vital Signs - 12hr 01/12/21 01/12/21 01/12/21 08:11 10:00 11:19 Temperature 97.7 F 97.9 F Pulse Rate 69 74 Pulse Rate [ 79 Right Radial] Respiratory 18 17 20 Rate Blood Pressure 112/71 106/66 O2 Sat by Pulse 96 93 83 L Oximetry 01/12/21 15:58 Temperature Pulse Rate 83 Pulse Rate [ Right Radial] Respiratory 16 Rate Blood Pressure 118/52 O2 Sat by Pulse 98 Oximetry - Labs CBC & Chem 7: 12/31/20 05:02 01/07/21 04:41
[2021-01-13] MEDS: levETIRAcetam 500 MG TAB PO SCH ×2 (09:08→21:08)
[2021-01-13] MEDS: FOLIC ACID 1 MG TAB PO SCH (09:08)
[2021-01-13] MEDS: CYANOCOBALAMIN (VIT B-12) 1000 MCG TAB PO SCH (09:09)
[2021-01-13] MEDS: MULTIVITAMINS,THER W-MINERALS TAB PO SCH (09:09)
[2021-01-13] MEDS: THIAMINE 100 MG TAB PO SCH (09:09)
[2021-01-13] MEDS: ENOXAPARIN 40 MG/0.4 ML INJ SUB-Q SCH (09:09)
[2021-01-13] MEDS: hydroCHLOROthiazide 25 MG TAB PO SCH (09:09)
[2021-01-13] MEDS: risperiDONE 1 MG TAB PO SCH ×2 (09:09→21:08)
[2021-01-13] MEDS: VALPROIC ACID 250 MG/5 ML ORAL LIQD PO SCH (09:09)
[2021-01-13] MEDS: ASPIRIN 81 MG TAB CHEW PO SCH (09:09)
[2021-01-13] MEDS: amLODIPine 5 MG TAB PO SCH (09:10)
--- NOTE | 2021-01-13 14:45 | Progress Note ---
Assessment and Plan --Acute metabolic ncephalopathy CT of the head and urine drug test-negative MRI of brain ordered unable to do due to lack of consent and patient remains confused Chest x-ray negative for acute finding Consulted neurologist --Febrile illness; in the setting of an encephalopathy on admission ID evaluated the patient, treated with empiric antibiotics, requested LP/MRI, no family available, to give consent And patient is agitated and confused requiring restraints --Hyponatremia/resolved hyponaremia mild-likely 2/2 dehydration continue IV hydration -- Hypertension Continue current antihypertensives. Monitor blood pressure PRN Hydralazine -- Possible Seizure disorder Seizure precautions, antiepileptic medications, neurology consult --?ETOH abuse thiamine, folic acid Closely monitor for alcohol withdrawal symptoms. --History of schizophrenia Continue psych medications psych consulted Closely monitor --DVT prophylaxis Subcutaneous Lovenox Daily Hospital course: 12/28: Patient now with fever of unknown origin. Still confused discussed with ID will obtain lumbar puncture. 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 MRI is pending. 12/29: Still with low grade fever, continue abx, follow cultures, LP to be done on thursday due to no Radiologist, Neurology input noted. Swallow eval ok, continue diet. start on HCTZ and Norvasc for HTN. No history on patient available here yet.] Want CT of the head read as negative during neurologist did review any suspect an acute ischemic stroke starting the patient on aspirin 81 mg daily unfortunately this was not started yesterday not sure why but will start that today. EEG is also ordered for possible subclinical seizures. He refused an ABG. Continue restraints as 12/30: Patient still with confusion, I wonder if he has some etoh issues, will go ahead and start on CIWA protocol in addition to Banana bag. CONTINUE restraints. 12/31: I was able to obtain records from [facility] as patient was recently admitted there on December 20 he was discharged on vitamin B12 1000 mcg daily, ferrous sulfate 325 mg twice a day and Keppra 1000 mg every 12 hours in addition to rest. Do not 1 tablet 2 times a day of 2 mg each. He does have underlying schizophrenia prior history of cocaine abuse and also history of seizure disorder and severe neurocognitive disorder. His court appointed [employer] agent is Grace Padilla phone #[phone]. At the time of his discharge from [place] he was supposed to be placed in a personal fpc as he has a history of wandering. I am not sure if this was done. As he was brought to us "found in the [place]". Clinically he is showing some improvement but with the new information will obtain psych consultation. 01/01; could not do the MRI/LP due to his severe agitation And noncooperation, will try MRI study again tomorrow with Ativan 01/02; radiology cannot do lumbar puncture/MRI study due to patient's severe agitation requiring four-point restraints And no family/hotel yardperson available to consent for the above tests when patient is calm and stable 01/03; patient continues to be agitated requiring restraints, noncooperative and unsteady for lumbar punctures and MRI Patient has no family to give consent, case management informed 01/04; patient is more calm, however gets agitated, CM informed me that patient's Michelle Padilla court appointed guardian, will call me To discuss and give consent for the tests and procedures ,waiting for patient's guardian call 01/05; still waiting for patient's guardian Indra Padilla to call and give consent for MRI/LP 01/06: Did not get a call from the patient's guardian Indra Padilla [Case manageme nt stated that patient's guardian will call me ] 01/07; patient's guardian Michelle Padilla did not contact me , CM could not reach her. No consent for LP/MRI Possible placement to [facility]. Discharge planning per case management 01/08: Patient remains restrained, continue to follow clinically. flower shop manager working on placement 01/09: disease case manager working on SNF placement, follow clinically, patient remains confused and requiring restraints. Continue empiric antibiotics per ID recommendation. 01/10: Last day of antibiotic today, pending SNF placement 01/11: Completed empiric antibiotics, pending SNF placement, patient remains confused. We will monitor off restrain, continue supportive care 01/12: Pending SNF placement, continue to monitor off restrain, provide s upportive care 01/13: continue to monitor off restrain, provide supportive care. ending SNF placement Subjective Date of service: 01/13/21 Principal diagnosis: AMS fever Interval history: Patient seen and examined. Medical records and medication list reviewed. No acute event overnight noted by the RN. Patient denies any chest pain or difficulty breathing. Patient is tolerating diet. Patient remains confused but off restrain Discussed plan of care at bedside with patient. Objective - Exam Narrative Exam: GENERAL: well-developed and well-nourished -Bhutanese male lying on bed appeared to be in no discomfort. Patient is restrained HEENT: Normocephalic. Atraumatic. No conjunctival congestion or icterus. Patient has moist mucous membranes. NECK: Supple. Trachea midline. CHEST/LUNGS: Clear to auscultated bilaterally, breathing nonlabored. No wheezes crackles or rhonchi. HEART/CARDIOVASCULAR: Regular in rate and rhythm. S1 and S2 positive. ABDOMEN: Abdomen is soft, nontender. Patient has normal bowel sounds. SKIN: There is no rash. Warm and dry. NEURO: No focal motor deficit. MUSCULOSKELETAL: No joint effusion or tenderness. EXTRIMITY: No edema, no cyanosis or clubbing. PSYCH: Confused. - Constitutional Vitals: Vital Signs - 12hr 01/13/21 01/13/21 01/13/21 03:50 08:03 10:00 Temperature 97.5 F L 97.8 F Pulse Rate 58 L 81 Respiratory 12 17 Rate Blood Pressure 112/67 Blood Pressure 109/65 [Right] O2 Sat by Pulse 96 98 99 Oximetry - Labs CBC & Chem 7: 01/14/21 07:27 01/14/21 07:27
[2021-01-14 08:20] LABS: Hematocrit 36.8 % (35.5-45.6); Mean Corpuscular HGB Conc 33 % (32-34); Mean Corpuscular Volume 72 fl (84-94); Platelet Count 294 K/mm3 (140-440); Red Blood Count 5.13 M/mm3 (3.65-5.03); Red Cell Distribution Width 15.8 % (13.2-15.2)
[2021-01-14 08:35] LABS: BUN/Creatinine Ratio 16; Blood Urea Nitrogen 13 mg/dL (9-20); Calcium 9.5 mg/dL (8.4-10.2); Hemolysis Index 0
[2021-01-14] MEDS: ENOXAPARIN 40 MG/0.4 ML INJ SUB-Q SCH (15:02)
[2021-01-14] MEDS: VALPROIC ACID 250 MG/5 ML ORAL LIQD PO SCH (15:03)
[2021-01-14] MEDS: MULTIVITAMINS,THER W-MINERALS TAB PO SCH (15:03)
[2021-01-14] MEDS: CYANOCOBALAMIN (VIT B-12) 1000 MCG TAB PO SCH (15:03)
[2021-01-14] MEDS: ASPIRIN 81 MG TAB CHEW PO SCH (15:03)
[2021-01-14] MEDS: hydroCHLOROthiazide 25 MG TAB PO SCH (15:03)
[2021-01-14] MEDS: THIAMINE 100 MG TAB PO SCH (15:03)
[2021-01-14] MEDS: risperiDONE 1 MG TAB PO SCH ×2 (15:03→21:54)
[2021-01-14] MEDS: amLODIPine 5 MG TAB PO SCH (15:04)
[2021-01-14] MEDS: FOLIC ACID 1 MG TAB PO SCH (15:04)
[2021-01-14] MEDS: levETIRAcetam 500 MG TAB PO SCH ×2 (15:05→21:54)
--- NOTE | 2021-01-14 15:40 | Progress Note ---
Assessment and Plan --Acute metabolic ncephalopathy CT of the head and urine drug test-negative MRI of brain ordered unable to do due to lack of consent and patient remains confused Chest x-ray negative for acute finding Consulted neurologist --Febrile illness; in the setting of an encephalopathy on admission ID evaluated the patient, treated with empiric antibiotics, requested LP/MRI, no family available, to give consent And patient is agitated and confused requiring restraints --Hyponatremia/resolved hyponaremia mild-likely 2/2 dehydration continue IV hydration -- Hypertension Continue current antihypertensives. Monitor blood pressure PRN Hydralazine -- Possible Seizure disorder Seizure precautions, antiepileptic medications, neurology consult --?ETOH abuse thiamine, folic acid Closely monitor for alcohol withdrawal symptoms. --History of schizophrenia Continue psych medications psych consulted Closely monitor --DVT prophylaxis Subcutaneous Lovenox Daily Hospital course: 12/28: Patient now with fever of unknown origin. Still confused discussed with ID will obtain lumbar puncture. 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 MRI is pending. 12/29: Still with low grade fever, continue abx, follow cultures, LP to be done on thursday due to no Radiologist, Neurology input noted. Swallow eval ok, continue diet. start on HCTZ and Norvasc for HTN. No history on patient available here yet.] Want CT of the head read as negative during neurologist did review any suspect an acute ischemic stroke starting the patient on aspirin 81 mg daily unfortunately this was not started yesterday not sure why but will start that today. EEG is also ordered for possible subclinical seizures. He refused an ABG. Continue restraints as 12/30: Patient still with confusion, I wonder if he has some etoh issues, will go ahead and start on CIWA protocol in addition to Banana bag. CONTINUE restraints. 12/31: I was able to obtain records from [facility] as patient was recently admitted there on December 20 he was discharged on vitamin B12 1000 mcg daily, ferrous sulfate 325 mg twice a day and Keppra 1000 mg every 12 hours in addition to rest. Do not 1 tablet 2 times a day of 2 mg each. He does have underlying schizophrenia prior history of cocaine abuse and also history of seizure disorder and severe neurocognitive disorder. His court appointed [employer] agent is Grace Padilla phone #[phone]. At the time of his discharge from [place] he was supposed to be placed in a personal longterm as he has a history of wandering. I am not sure if this was done. As he was brought to us "found in the [place]". Clinically he is showing some improvement but with the new information will obtain psych consultation. 01/01; could not do the MRI/LP due to his severe agitation And noncooperation, will try MRI study again tomorrow with Ativan 01/02; radiology cannot do lumbar puncture/MRI study due to patient's severe agitation requiring four-point restraints And no family/maintenance person available to consent for the above tests when patient is calm and stable 01/03; patient continues to be agitated requiring restraints, noncooperative and unsteady for lumbar punctures and MRI Patient has no family to give consent, case management informed 01/04; patient is more calm, however gets agitated, CM informed me that patient's Michelle Padilla court appointed guardian, will call me To discuss and give consent for the tests and procedures ,waiting for patient's guardian call 01/05; still waiting for patient's guardian Indra Padilla to call and give consent for MRI/LP 01/06: Did not get a call from the patient's guardian Indra Padilla [Case manageme nt stated that patient's guardian will call me ] 01/07; patient's guardian Michelle Padilla did not contact me , CM could not reach her. No consent for LP/MRI Possible placement to [facility]. Discharge planning per case management 01/08: Patient remains restrained, continue to follow clinically. clinical project manager working on placement 01/09: piano case maker working on SNF placement, follow clinically, patient remains confused and requiring restraints. Continue empiric antibiotics per ID recommendation. 01/10: Last day of antibiotic today, pending SNF placement 01/11: Completed empiric antibiotics, pending SNF placement, patient remains confused. We will monitor off restrain, continue supportive care 01/12: Pending SNF placement, continue to monitor off restrain, provide s upportive care 01/13: continue to monitor off restrain, provide supportive care. ending SNF placement 01/14: ending SNF placement, continue to monitor off restrain, provide supportive care Subjective Date of service: 01/14/21 Principal diagnosis: AMS fever Interval history: Patient seen and examined. Medical records and medication list reviewed. No acute event overnight noted by the RN. Patient denies any chest pain or difficulty breathing. Patient is tolerating diet. Patient remains confused but off restrain Discussed plan of care at bedside with patient. Objective - Exam Narrative Exam: GENERAL: well-developed and well-nourished -[place]itt[place] male lying on bed appeared to be in no discomfort. Patient is restrained HEENT: Normocephalic. Atraumatic. No conjunctival congestion or icterus. Patient has moist mucous membranes. NECK: Supple. Trachea midline. CHEST/LUNGS: Clear to auscultated bilaterally, breathing nonlabored. No wheezes crackles or rhonchi. HEART/CARDIOVASCULAR: Regular in rate and rhythm. S1 and S2 positive. ABDOMEN: Abdomen is soft, nontender. Patient has normal bowel sounds. SKIN: There is no rash. Warm and dry. NEURO: No focal motor deficit. MUSCULOSKELETAL: No joint effusion or tenderness. EXTRIMITY: No edema, no cyanosis or clubbing. PSYCH: Confused. - Constitutional Vitals: Vital Signs - 12hr 01/14/21 01/14/21 05:01 15:04 Temperature 98.1 F Pulse Rate 87 78 Respiratory 18 Rate Blood Pressure 123/73 O2 Sat by Pulse 99 Oximetry - Labs CBC & Chem 7: 01/14/21 07:27 01/14/21 07:27 Labs: Abnormal lab results 01/14/21 Range/Units 07:27 RBC 5.13 H (3.65-5.03) M/mm3 MCV 72 L (84-94) fl MCH 23 L (28-32) pg RDW 15.8 H (13.2-15.2) %
[2021-01-14 16:59] LABS: Band Neutrophils # (Manual) 0.1 K/mm3; Myelocytes # (Manual) 0.5 K/mm3; Total Cells Counted 100
[2021-01-14 17:00] LABS: Platelet Estimate Consistent w Auto
[2021-01-15] MEDS: ENOXAPARIN 40 MG/0.4 ML INJ SUB-Q SCH (09:27)
[2021-01-15] MEDS: MULTIVITAMINS,THER W-MINERALS TAB PO SCH (09:27)
[2021-01-15] MEDS: THIAMINE 100 MG TAB PO SCH (09:28)
[2021-01-15] MEDS: ASPIRIN 81 MG TAB CHEW PO SCH (09:28)
[2021-01-15] MEDS: amLODIPine 5 MG TAB PO SCH (09:28)
[2021-01-15] MEDS: levETIRAcetam 500 MG TAB PO SCH ×2 (09:28→21:35)
[2021-01-15] MEDS: hydroCHLOROthiazide 25 MG TAB PO SCH (09:28)
[2021-01-15] MEDS: VALPROIC ACID 250 MG/5 ML ORAL LIQD PO SCH (09:28)
[2021-01-15] MEDS: FOLIC ACID 1 MG TAB PO SCH (09:28)
[2021-01-15] MEDS: risperiDONE 1 MG TAB PO SCH ×2 (09:28→21:34)
[2021-01-15] MEDS: CYANOCOBALAMIN (VIT B-12) 1000 MCG TAB PO SCH (09:28)
--- NOTE | 2021-01-15 09:45 | Progress Note ---
Assessment and Plan Assessment and plan: --Acute metabolic ncephalopathy CT of the head and urine drug test-negative MRI of brain ordered unable to do due to lack of consent and patient remains confused Chest x-ray negative for acute finding Consulted neurologist --Febrile illness; in the setting of an encephalopathy on admission ID evaluated the patient, treated with empiric antibiotics, requested LP/MRI, no family available, to give consent And patient is agitated and confused requiring restraints --Hyponatremia/resolved hyponaremia mild-likely 2/2 dehydration continue IV hydration -- Hypertension Continue current antihypertensives. Monitor blood pressure PRN Hydralazine -- Possible Seizure disorder Seizure precautions, antiepileptic medications, neurology consult --?ETOH abuse thiamine, folic acid Closely monitor for alcohol withdrawal symptoms. --History of schizophrenia Continue psych medications psych consulted Closely monitor --DVT prophylaxis Subcutaneous Lovenox Daily Hospital course: 12/28: Patient now with fever of unknown origin. Still confused discussed with ID will obtain lumbar puncture. 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 MRI is pending. 12/29: Still with low grade fever, continue abx, follow cultures, LP to be done on thursday due to no Radiologist, Neurology input noted. Swallow eval ok, continue diet. start on HCTZ and Norvasc for HTN. No history on patient available here yet.] Want CT of the head read as negative during neurologist di d review any suspect an acute ischemic stroke starting the patient on aspirin 81 mg daily unfortunately this was not started yesterday not sure why but will start that today. EEG is also ordered for possible subclinical seizures. He refused an ABG. Continue restraints as 12/30: Patient still with confusion, I wonder if he has some etoh issues, will go ahead and start on CIWA protocol in addition to Banana bag. CONTINUE restraints. 12/31: I was able to obtain records from [facility] as patient was recently admitted there on December 20 he was discharged on vitamin B12 1000 mcg daily, ferrous sulfate 325 mg twice a day and Keppra 1000 mg every 12 hours in addition to rest. Do not 1 tablet 2 times a day of 2 mg each. He does have underlying schizophrenia prior history of cocaine abuse and also history of seizure disorder and severe neurocognitive disorder. His court appointed [employer] agent is Grace Padilla phone #[phone]. At the time of his discharge from [facility] he was supposed to be placed in a personal snf as he has a history of wandering. I am not sure if this was done. As he was brought to us "found in the [place]". Clinically he is showing some improvement but with the new information will obtain psych consultation. 01/01; could not do the MRI/LP due to his severe agitation And noncooperation, will try MRI study again tomorrow with Ativan 01/02; radiology cannot do lumbar puncture/MRI study due to patient's severe agitation requiring four-point restraints And no family/customer contact representative available to consent for the above tests when patient is calm and stable 01/03; patient continues to be agitated requiring restraints, noncooperative and unsteady for lumbar punctures and MRI Patient has no family to give consent, case management informed 01/04; patient is more calm, however gets agitated, CM informed me that patient's Michelle Padilla court appointed guardian, will call me To discuss and give consent for the tests and procedures ,waiting for patient's guardian call 01/05; still waiting for patient's guardian Indra Padilla to call and give consent for MRI/LP 01/06: Did not get a call from the patient's guardian Indra Padilla [Case management stated that patient's guardian will call me ] 01/07; patient's guardian Michelle Padilla did not contact me , CM could not reach her. No consent for LP/MRI Possible placement to [facility]. Discharge planning per case management 01/08: Patient remains restrained, continue to follow clinically. procurement manager working on placement 01/09: special education case manager working on SNF placement, follow clinically, patient remains confused and requiring restraints. Continue empiric antibiotics per ID recommendation. 01/10: Last day of antibiotic today, pending SNF placement 01/11: Completed empiric antibiotics, pending SNF placement, patient remains confused. We will monitor off restrain, continue supportive care 01/12: Pending SNF placement, continue to monitor off restrain, provide supportive care 01/13: continue to monitor off restrain, provide supportive care. ending SNF placement 01/14: ending SNF placement, continue to monitor off restrain, provide supportive care 01/15; pending SNF placement, patient is off restraints, stable History Interval history: I seen and examined the patient at the bedside this morning Patient's chart and medications reviewed No new events reported by the nursing staff Patient is off restraints calm and composed Vital signs noted Hospitalist Physical - Constitutional Vitals: Temp Pulse Resp BP Pulse Ox 98.2 F 78 17 104/63 98 01/15/21 09:22 01/15/21 09:22 01/15/21 09:22 01/15/21 09:22 01/15/21 09:22 General appearance: Present: no acute distress, well-nourished, other (Agitated and restrained) - EENT Eyes: Present: PERRL, EOM intact - Neck Neck: Present: supple, normal ROM - Respiratory Respiratory effort: normal Respiratory: bilateral: diminished, negative: rales, rhonchi, wheezing - Cardiovascular Rhythm: regular Heart Sounds: Present: S1 & S2 - Extremities Extremities: no ischemia, No edema - Abdominal General gastrointestinal: soft, non-tender, non-distended, normal bowel sounds - Integumentary Integumentary: Present: clear, warm - Psychiatric Psychiatric: appropriate mood/affect, cooperative - Neurologic Neurologic: moves all extremities Results - Labs CBC & Chem 7: 01/14/21 07:27 01/14/21 07:27 Labs: Laboratory Last Values WBC 5.9 K/mm3 (4.5-11.0) 01/14/21 07:27 RBC 5.13 M/mm3 (3.65-5.03) H 01/14/21 07:27 Hgb 12.0 gm/dl (11.8-15.2) 01/14/21 07:27 Hct 36.8 % (35.5-45.6) 01/14/21 07:27 MCV 72 fl (84-94) L 01/14/21 07:27 MCH 23 pg (28-32) L 01/14/21 07:27 MCHC 33 % (32-34) 01/14/21 07:27 RDW 15.8 % (13.2-15.2) H 01/14/21 07:27 Plt Count 294 K/mm3 (140-440) 01/14/21 07:27 Lymph % (Auto) 6.4 % (13.4-35.0) L 12/27/20 17:34 Smyth % (Auto) 3.9 % (0.0-7.3) 12/27/20 17:34 Eos % (Auto) 0.2 % (0.0-4.3) 12/27/20 17:34 Baso % (Auto) Human Resources File Clerk 01/14/21 07:27 Lymph # (Auto) 0.7 K/mm3 (1.2-5.4) L 12/27/20 17:34 Smyth # (Auto) 0.4 K/mm3 (0.0-0.8) 12/27/20 17:34 Eos # (Auto) 0.0 K/mm3 (0.0-0.4) 12/27/20 17:34 Baso # (Auto) 0.1 K/mm3 (0.0-0.1) 12/27/20 17:34 Add Manual Diff Complete 01/14/21 07:27 Total Counted 100 01/14/21 07:27 Seg Neutrophils % 89.0 % (40.0-70.0) H 12/27/20 17:34 Seg Neuts % (Manual) 76.0 % (40.0-70.0) H 01/14/21 07:27 Band Neutrophils % 1.0 % 01/14/21 07:27 Lymphocytes % (Manual) 8.0 % (13.4-35.0) L 01/14/21 07:27 Reactive Lymphs % (Man) 1.0 % 01/14/21 07:27 Monocytes % (Manual) 4.0 % (0.0-7.3) 01/14/21 07:27 Eosinophils % (Manual) 1.0 % (0.0-4.3) 01/14/21 07:27 Myelocytes % 9.0 % 01/14/21 07:27 Nucleated RBC % Not Reportable 01/14/21 07:27 Seg Neutrophils # 9.5 K/mm3 (1.8-7.7) H 12/27/20 17:34 Seg Neutrophils # Man 4.5 K/mm3 (1.8-7.7) 01/14/21 07:27 Band Neutrophils # 0.1 K/mm3 01/14/21 07:27 Lymphocytes # (Manual) 0.5 K/mm3 (1.2-5.4) L 01/14/21 07:27 Abs React Lymphs (Man) 0.1 K/mm3 01/14/21 07:27 Monocytes # (Manual) 0.2 K/mm3 (0.0-0.8) 01/14/21 07:27 Eosinophils # (Manual) 0.1 K/mm3 (0.0-0.4) 01/14/21 07:27 Basophils # (Manual) 0.0 K/mm3 (0.0-0.1) 01/14/21 07:27 Metamyelocytes # 0.0 K/mm3 01/14/21 07:27 Myelocytes # 0.5 K/mm3 01/14/21 07:27 Promyelocytes # 0.0 K/mm3 01/14/21 07:27 Blast Cells # 0.0 K/mm3 01/14/21 07:27 WBC Morphology Not Reportable 01/14/21 07:27 Hypersegmented Neuts Not Reportable 01/14/21 07:27 Hyposegmented Neuts Not Reportable 01/14/21 07:27 Hypogranular Neuts Not Reportable 01/14/21 07:27 Smudge Cells Not Reportable 01/14/21 07:27 Toxic Granulation Not Reportable 01/14/21 07:27 Toxic Vacuolation Not Reportable 01/14/21 07:27 Dohle Bodies Not Reportable 01/14/21 07:27 Pelger-Huet Anomaly Not Reportable 01/14/21 07:27 Diana Rods Not Reportable 01/14/21 07:27 Platelet Estimate Consistent w auto 01/14/21 07:27 Clumped Platelets Not Reportable 01/14/21 07:27 Plt Clumps, EDTA Not Reportable 01/14/21 07:27 Large Platelets Not Reportable 01/14/21 07:27 Giant Platelets Not Reportable 01/14/21 07:27 Platelet Satelliting Not Reportable 01/14/21 07:27 Plt Morphology Comment Not Reportable 01/14/21 07:27 RBC Morphology Not Reportable 01/14/21 07:27 Dimorphic RBCs Not Reportable 01/14/21 07:27 Polychromasia Not Reportable 01/14/21 07:27 Hypochromasia Not Reportable 01/14/21 07:27 Poikilocytosis Not Reportable 01/14/21 07:27 Anisocytosis Not Reportable 01/14/21 07:27 Microcytosis Not Reportable 01/14/21 07:27 Macrocytosis Not Reportable 01/14/21 07:27 Spherocytes Not Reportable 01/14/21 07:27 Pappenheimer Bodies Not Reportable 01/14/21 07:27 Sickle Cells Not Reportable 01/14/21 07:27 Target Cells Not Reportable 01/14/21 07:27 Tear Drop Cells Not Reportable 01/14/21 07:27 Ovalocytes Not Reportable 01/14/21 07:27 Helmet Cells Not Reportable 01/14/21 07:27 [place] Bodies Not Reportable 01/14/21 07:27 Eldred Rings Not Reportable 01/14/21 07:27 [place] Cells Not Reportable 01/14/21 07:27 Bite Cells Not Reportable 01/14/21 07:27 Crenated Cell Not Reportable 01/14/21 07:27 Elliptocytes Not Reportable 01/14/21 07:27 Acanthocytes (Spur) Not Reportable 01/14/21 07:27 Rouleaux Not Reportable 01/14/21 07:27 Hemoglobin C Crystals Not Reportable 01/14/21 07:27 Schistocytes Not Reportable 01/14/21 07:27 Malaria parasites Not Reportable 01/14/21 07:27 Johnathon Bodies Not Reportable 01/14/21 07:27 Hem Pathologist Commnt No 01/14/21 07:27 Sodium 142 mmol/L (137-145) 01/14/21 07:27 Potassium 4.0 mmol/L (3.6-5.0) 01/14/21 07:27 Chloride 102.9 mmol/L (98-107) 01/14/21 07:27 Carbon Dioxide 29 mmol/L (22-30) 01/14/21 07:27 Anion Gap 14 mmol/L 01/14/21 07:27 BUN 13 mg/dL (9-20) 01/14/21 07:27 Creatinine 0.8 mg/dL (0.8-1.3) 01/14/21 07:27 Estimated GFR > 60 ml/min 01/14/21 07:27 BUN/Creatinine Ratio 16 % 01/14/21 07:27 Glucose 84 mg/dL (75-100) 01/14/21 07:27 POC Glucose 112 mg/dL (70-105) H 12/29/20 00:14 Lactic Acid 1.30 mmol/L (0.7-2.0) 12/28/20 08:13 Calcium 9.5 mg/dL (8.4-10.2) 01/14/21 07:27 Phosphorus 3.70 mg/dL (2.5-4.5) 12/30/20 13:13 Magnesium 2.10 mg/dL (1.7-2.3) 12/30/20 13:13 Total Bilirubin 0.50 mg/dL (0.1-1.2) 12/31/20 05:02 Direct Bilirubin < 0.2 mg/dL (0-0.2) 12/27/20 17:34 Indirect Bilirubin 0.2 mg/dL 12/27/20 17:34 AST 19 units/L (5-40) 12/31/20 05:02 ALT 12 units/L (7-56) 12/31/20 05:02 Alkaline Phosphatase 72 units/L (35-129) 12/31/20 05:02 Ammonia 21.0 umol/L (25-60) L 12/30/20 13:13 Total Protein 7.1 g/dL (6.3-8.2) 12/31/20 05:02 Albumin 3.7 g/dL (3.9-5) L 12/31/20 05:02 Albumin/Globulin Ratio 1.1 % 12/31/20 05:02 Urine Color Straw (Yellow) 12/28/20 02:15 Urine Turbidity Clear (Clear) 12/28/20 02:15 Urine pH 5.0 (5.0-7.0) 12/28/20 02:15 Ur Specific [place]on 1.025 (1.003-1.030) 12/28/20 02:15 Urine Protein 100 mg/dl mg/dL (Negative) 12/28/20 02:15 Urine Glucose (UA) Negative mg/dL (Negative) 12/28/20 02:15 Urine Ketones Negative mg/dL (Negative) 12/28/20 02:15 Urine Blood Small (Negative) A 12/28/20 02:15 Urine Nitrite Negative (Negative) 12/28/20 02:15 Ur Reducing Substances Not Reportable 12/28/20 02:15 Urine Bilirubin Negative (Negative) 12/28/20 02:15 Urine Ictotest Not Reportable 12/28/20 02:15 Urine Urobilinogen < 2.0 mg/dL (<2.0) 12/28/20 02:15 Ur Leukocyte Esterase Negative (Negative) 12/28/20 02:15 Urine WBC (Auto) 3.0 /HPF (0.0-6.0) 12/28/20 02:15 Urine RBC (Auto) 4.0 /HPF (0.0-6.0) 12/28/20 02:15 U Epithel Cells (Auto) < 1.0 /HPF (0-13.0) 12/28/20 02:15 Hyaline Casts 1 /LPF 12/28/20 02:15 Granular Casts 1 /LPF 12/28/20 02:15 Urine Mucus Few /HPF 12/28/20 02:15 Salicylates < 0.3 mg/dL (2.8-20.0) L 12/27/20 17:34 Urine Opiates Screen Negative 12/27/20 17:11 Urine Methadone Screen Negative 12/27/20 17:11 Acetaminophen 5.0 ug/mL (10.0-30.0) L 12/27/20 17:34 Ur Barbiturates Screen Negative 12/27/20 17:11 Ur Phencyclidine Scrn Negative 12/27/20 17:11 Ur Amphetamines Screen Negative 12/27/20 17:11 U Benzodiazepines Scrn Negative 12/27/20 17:11 Urine Cocaine Screen Negative 12/27/20 17:11 U Marijuana (THC) Screen Negative 12/27/20 17:11 Drugs of Abuse Note Disclamer 12/27/20 17:11 Plasma/Serum Alcohol < 0.01 % (0-0.07) 12/27/20 17:34 [place]/IV: Voiding Method Condom Catheter Active Medications - Current Medications Current Medications: Generic Name Dose Route Start Last Admin Trade Name Freq PRN Reason Stop Dose Admin Acetaminophen 650 mg 12/27/20 22:21 12/29/20 05:16 Acetaminophen 325 Mg Tab PO 650 mg Q4H PRN Administration Pain MILD(1-3)/Fever >100.5/CARRERA Al Hydrox/Mg Hydrox/Simethicone 30 ml 12/27/20 22:21 Alum-Mag Hydroxide-Simethicone [id number]/5ml Oral Liqd 30 Ml PO Q4H PRN Indigestion Amlodipine Besylate 2.5 mg 12/29/20 10:00 01/15/21 09:28 Amlodipine 5 Mg Tab PO 2.5 mg QDAY CHELLE Administration Aspirin 81 mg 12/29/20 10:00 01/15/21 09:28 Aspirin 81 Mg Tab Chew PO 81 mg QDAY CHELLE Administration Atorvastatin Calcium 40 mg 12/29/20 22:00 01/14/21 21:54 Atorvastatin 40 Mg Tab PO 40 mg QHS CHELLE Administration Cyanocobalamin 1,000 mcg 12/31/20 15:00 01/15/21 09:28 Cyanocobalamin (Vit B-12) 1000 Mcg Tab PO 1,000 mcg QDAY CHELLE Administration Enoxaparin Sodium 40 mg 12/28/20 10:00 01/15/21 09:27 Enoxaparin 40 Mg/0.4 Ml Inj SUB-Q 40 mg QDAY CHELLE Administration Folic Acid 1 mg 01/03/21 10:00 01/15/21 09:28 Folic Acid 1 Mg Tab PO 1 mg DAILY CHELLE Administration Hydralazine HCl 5 mg 12/27/20 22:35 12/29/20 12:05 Hydralazine 20 Mg/1 Ml Inj IV 5 mg Q4H PRN Administration Hypertension Hydrochlorothiazide 25 mg 12/29/20 10:00 01/15/21 09:28 Hydrochlorothiazide 25 Mg Tab PO 25 mg QDAY CHELLE Administration Levetiracetam 500 mg 01/02/21 10:00 01/15/21 09:28 Levetiracetam 500 Mg Tab PO 500 mg BID CHELLE Administration Lorazepam 2 mg 12/30/20 11:00 12/30/20 22:21 Lorazepam 2 Mg/Ml Vial IV 2 mg Q1HR PRN Administration CIWA-Ar 8-15 Lorazepam 4 mg 12/30/20 11:00 Lorazepam 2 Mg/Ml Vial IV Q1HR PRN CIWA-Ar 16-25 Magnesium Hydroxide 30 ml 12/27/20 22:21 Magnesium Hydroxide (Mom) Oral Liqd Udc PO Q4H PRN Constipation Multivitamins/Minerals 1 each 01/03/21 10:00 01/15/21 09:27 Multivitamins,Ther W-Minerals Tab PO 1 each QDAY CHELLE Administration Naloxone HCl 0.1 mg 12/27/20 22:21 Naloxone 0.4 Mg/1 Ml Inj IV Q2MIN PRN Res Rate </= 8 or 02 SAT < 92% Ondansetron HCl 4 mg 12/27/20 22:21 Ondansetron 4 Mg/2 Ml Inj IV Q8H PRN Nausea And Vomiting Risperidone 1 mg 12/31/20 22:00 01/15/21 09:28 Risperidone 1 Mg Tab PO 1 mg BID CHELLE Administration Sodium Chloride 10 ml 12/28/20 10:00 01/15/21 09:28 Sodium Chloride 0.9% 10 Ml Flush Syringe IV 10 ml BID CHELLE Administration Sodium Chloride 10 ml 12/27/20 22:21 Sodium Chloride 0.9% 10 Ml Flush Syringe IV PRN PRN LINE FLUSH Thiamine HCl 100 mg 01/03/21 10:00 01/15/21 09:28 Thiamine 100 Mg Tab PO 100 mg QDAY CHELLE Administration Valproic Acid 250 mg 01/04/21 13:00 01/15/21 09:28 Valproic Acid 250 Mg/5 Ml Oral Liqd PO 250 mg DAILY CHELLE Administration Nutrition/Malnutrition Assess - Dietary Evaluation Nutrition/Malnutrition Findings: Nutrition Notes Start: 01/03/21 16:36 Freq: Status: Active Protocol: Document 01/10/21 12:20 [facility] (Rec: 01/10/21 12:32 [facility] [id number]) Nutrition Notes Initial or Follow up Reassessment Current Diagnosis Hypertension Current Diet Acute metabolic encephalopathy , ?EtOH dependence, schizophrenia Labs/Tests No current available Pertinent Medications Reviewed Height 6 ft Weight 91.2 kg [place] Body Weight (kg) 80.90 BMI 27.2 Weight change and time frame Wt change noted. Unsure of accurate admission weight (21. 6kg wt loss x one week?) Weight Status Overweight Subjective/Other Information Visited pt at 11:25. Pt remains confused; no wrist restraints required at this time. He is awaiting placement. He consumed 100% of meals on 01/05; he says he had cereal and juice this am ( although I observed 50% of cereal at bedside). Percent of energy/protein needs met: Likely meeting at least 75% energy and pro needs Burn Absent Trauma Absent Current % PO Good (75-100%) Minimum of two criteria No Interpretation of Weight Loss (severe) >2% in 1 week #1 Nutrition Diagnosis Unintended weight loss Etiology AMS As Evidenced by Signs and Symptoms pt with possible wt loss over past week Is patient on ventilator? No Is Patient Ambulatory and/or Out of Bed No REE-([facility]-confined to bed) 4716.572 Calculation Used for Recommendations [facility] Additional Notes Pro needs 0.8-1g/k-91g/ day Fluid needs 1ml/kcal Nutrition Intervention Change Diet Order: Continue current diet order Goal #1 PO intakes to meet at least 75 % energy and pro needs Goal #2 Wt maintenance Follow-Up By: 01/17/21 Additional Comments F/U: intakes, wt
[2021-01-16] MEDS: THIAMINE 100 MG TAB PO SCH (10:00)
[2021-01-16] MEDS: FOLIC ACID 1 MG TAB PO SCH (10:00)
[2021-01-16] MEDS: hydroCHLOROthiazide 25 MG TAB PO SCH (10:00)
[2021-01-16] MEDS: MULTIVITAMINS,THER W-MINERALS TAB PO SCH (10:00)
[2021-01-16] MEDS: risperiDONE 1 MG TAB PO SCH ×2 (10:00→21:57)
[2021-01-16] MEDS: CYANOCOBALAMIN (VIT B-12) 1000 MCG TAB PO SCH (10:00)
[2021-01-16] MEDS: amLODIPine 5 MG TAB PO SCH (10:00)
[2021-01-16] MEDS: VALPROIC ACID 250 MG/5 ML ORAL LIQD PO SCH (10:00)
[2021-01-16] MEDS: levETIRAcetam 500 MG TAB PO SCH ×2 (10:00→21:57)
[2021-01-16] MEDS: ENOXAPARIN 40 MG/0.4 ML INJ SUB-Q SCH (10:00)
[2021-01-16] MEDS: ASPIRIN 81 MG TAB CHEW PO SCH (13:07)
--- NOTE | 2021-01-16 17:29 | Progress Note ---
Assessment and Plan Assessment and plan: --Acute metabolic ncephalopathy CT of the head and urine drug test-negative MRI of brain ordered unable to do due to lack of consent and patient remains confused Chest x-ray negative for acute finding Consulted neurologist --Febrile illness; in the setting of an encephalopathy on admission ID evaluated the patient, treated with empiric antibiotics, requested LP/MRI, no family available, to give consent And patient is agitated and confused requiring restraints --Hyponatremia/resolved hyponaremia mild-likely 2/2 dehydration continue IV hydration -- Hypertension Continue current antihypertensives. Monitor blood pressure PRN Hydralazine -- Possible Seizure disorder Seizure precautions, antiepileptic medications, neurology consult --?ETOH abuse thiamine, folic acid Closely monitor for alcohol withdrawal symptoms. --History of schizophrenia Continue psych medications psych consulted Closely monitor --DVT prophylaxis Subcutaneous Lovenox Daily Hospital course: 12/28: Patient now with fever of unknown origin. Still confused discussed with ID will obtain lumbar puncture. 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 MRI is pending. 12/29: Still with low grade fever, continue abx, follow cultures, LP to be done on thursday due to no Radiologist, Neurology input noted. Swallow eval ok, continue diet. start on HCTZ and Norvasc for HTN. No history on patient available here yet.] Want CT of the head read as negative during neurologist di d review any suspect an acute ischemic stroke starting the patient on aspirin 81 mg daily unfortunately this was not started yesterday not sure why but will start that today. EEG is also ordered for possible subclinical seizures. He refused an ABG. Continue restraints as 12/30: Patient still with confusion, I wonder if he has some etoh issues, will go ahead and start on CIWA protocol in addition to Banana bag. CONTINUE restraints. 12/31: I was able to obtain records from [facility] as patient was recently admitted there on December 20 he was discharged on vitamin B12 1000 mcg daily, ferrous sulfate 325 mg twice a day and Keppra 1000 mg every 12 hours in addition to rest. Do not 1 tablet 2 times a day of 2 mg each. He does have underlying schizophrenia prior history of cocaine abuse and also history of seizure disorder and severe neurocognitive disorder. His court appointed [employer] agent is Grace Padilla phone #[phone]. At the time of his discharge from [place] he was supposed to be placed in a personal prison as he has a history of wandering. I am not sure if this was done. As he was brought to us "found in the aguirre". Clinically he is showing some improvement but with the new information will obtain psych consultation. 01/01; could not do the MRI/LP due to his severe agitation And noncooperation, will try MRI study again tomorrow with Ativan 01/02; radiology cannot do lumbar puncture/MRI study due to patient's severe agitation requiring four-point restraints And no family/general merchandise salesperson available to consent for the above tests when patient is calm and stable 01/03; patient continues to be agitated requiring restraints, noncooperative and unsteady for lumbar punctures and MRI Patient has no family to give consent, case management informed 01/04; patient is more calm, however gets agitated, CM informed me that patient's Michelle Padilla court appointed guardian, will call me To discuss and give consent for the tests and procedures ,waiting for patient's guardian call 01/05; still waiting for patient's guardian Indra Padilla to call and give consent for MRI/LP 01/06: Did not get a call from the patient's guardian Indra Padilla [Case management stated that patient's guardian will call me ] 01/07; patient's guardian Michelle Padilla did not contact me , CM could not reach her. No consent for LP/MRI Possible placement to [facility]. Discharge planning per case management 01/08: Patient remains restrained, continue to follow clinically. it infrastructure project manager working on placement 01/09: case finishing machine adjuster working on SNF placement, follow clinically, patient remains confused and requiring restraints. Continue empiric antibiotics per ID recommendation. 01/10: Last day of antibiotic today, pending SNF placement 01/11: Completed empiric antibiotics, pending SNF placement, patient remains confused. We will monitor off restrain, continue supportive care 01/12: Pending SNF placement, continue to monitor off restrain, provide supportive care 01/13: continue to monitor off restrain, provide supportive care. ending SNF placement 01/14: pending SNF placement, continue to monitor off restrain, provide supportive care 01/15; pending SNF placement, patient is off restraints, stable 01/16; pending placement, patient is clinically stable for discharge, DC planning per case management History Interval history: I have seen and examined the patient Patient is quiet and calm off restraints for many days No agitation or aggression Minimally communicative Hospitalist Physical - Constitutional Vitals: Temp Pulse Resp BP Pulse Ox 97.9 F 66 20 125/70 98 01/16/21 11:59 01/16/21 11:59 01/16/21 11:59 01/16/21 11:59 01/16/21 11:59 General appearance: Present: no acute distress, well-nourished, other (Agitated and restrained) - EENT Eyes: Present: PERRL, EOM intact - Neck Neck: Present: supple, normal ROM - Respiratory Respiratory effort: normal Respiratory: bilateral: diminished, negative: rales, rhonchi, wheezing - Cardiovascular Rhythm: regular Heart Sounds: Present: S1 & S2 - Extremities Extremities: no ischemia, No edema - Abdominal General gastrointestinal: soft, non-tender, non-distended, normal bowel sounds - Integumentary Integumentary: Present: clear, warm - Psychiatric Psychiatric: appropriate mood/affect, other (Confused) - Neurologic Neurologic: moves all extremities, other (Minimally communicative) Results - Labs CBC & Chem 7: 01/14/21 07:27 01/14/21 07:27 Labs: Laboratory Last Values WBC 5.9 K/mm3 (4.5-11.0) 01/14/21 07:27 RBC 5.13 M/mm3 (3.65-5.03) H 01/14/21 07:27 Hgb 12.0 gm/dl (11.8-15.2) 01/14/21 07:27 Hct 36.8 % (35.5-45.6) 01/14/21 07:27 MCV 72 fl (84-94) L 01/14/21 07:27 MCH 23 pg (28-32) L 01/14/21 07:27 MCHC 33 % (32-34) 01/14/21 07:27 RDW 15.8 % (13.2-15.2) H 01/14/21 07:27 Plt Count 294 K/mm3 (140-440) 01/14/21 07:27 Lymph % (Auto) 6.4 % (13.4-35.0) L 12/27/20 17:34 Ward % (Auto) 3.9 % (0.0-7.3) 12/27/20 17:34 Eos % (Auto) 0.2 % (0.0-4.3) 12/27/20 17:34 Baso % (Auto) Estate Planner 01/14/21 07:27 Lymph # (Auto) 0.7 K/mm3 (1.2-5.4) L 12/27/20 17:34 Ward # (Auto) 0.4 K/mm3 (0.0-0.8) 12/27/20 17:34 Eos # (Auto) 0.0 K/mm3 (0.0-0.4) 12/27/20 17:34 Baso # (Auto) 0.1 K/mm3 (0.0-0.1) 12/27/20 17:34 Add Manual Diff Complete 01/14/21 07:27 Total Counted 100 01/14/21 07:27 Seg Neutrophils % 89.0 % (40.0-70.0) H 12/27/20 17:34 Seg Neuts % (Manual) 76.0 % (40.0-70.0) H 01/14/21 07:27 Band Neutrophils % 1.0 % 01/14/21 07:27 Lymphocytes % (Manual) 8.0 % (13.4-35.0) L 01/14/21 07:27 Reactive Lymphs % (Man) 1.0 % 01/14/21 07:27 Monocytes % (Manual) 4.0 % (0.0-7.3) 01/14/21 07:27 Eosinophils % (Manual) 1.0 % (0.0-4.3) 01/14/21 07:27 Myelocytes % 9.0 % 01/14/21 07:27 Nucleated RBC % Not Reportable 01/14/21 07:27 Seg Neutrophils # 9.5 K/mm3 (1.8-7.7) H 12/27/20 17:34 Seg Neutrophils # Man 4.5 K/mm3 (1.8-7.7) 01/14/21 07:27 Band Neutrophils # 0.1 K/mm3 01/14/21 07:27 Lymphocytes # (Manual) 0.5 K/mm3 (1.2-5.4) L 01/14/21 07:27 Abs React Lymphs (Man) 0.1 K/mm3 01/14/21 07:27 Monocytes # (Manual) 0.2 K/mm3 (0.0-0.8) 01/14/21 07:27 Eosinophils # (Manual) 0.1 K/mm3 (0.0-0.4) 01/14/21 07:27 Basophils # (Manual) 0.0 K/mm3 (0.0-0.1) 01/14/21 07:27 Metamyelocytes # 0.0 K/mm3 01/14/21 07:27 Myelocytes # 0.5 K/mm3 01/14/21 07:27 Promyelocytes # 0.0 K/mm3 01/14/21 07:27 Blast Cells # 0.0 K/mm3 01/14/21 07:27 WBC Morphology Not Reportable 01/14/21 07:27 Hypersegmented Neuts Not Reportable 01/14/21 07:27 Hyposegmented Neuts Not Reportable 01/14/21 07:27 Hypogranular Neuts Not Reportable 01/14/21 07:27 Smudge Cells Not Reportable 01/14/21 07:27 Toxic Granulation Not Reportable 01/14/21 07:27 Toxic Vacuolation Not Reportable 01/14/21 07:27 Dohle Bodies Not Reportable 01/14/21 07:27 Pelger-Huet Anomaly Not Reportable 01/14/21 07:27 Diana Rods Not Reportable 01/14/21 07:27 Platelet Estimate Consistent w auto 01/14/21 07:27 Clumped Platelets Not Reportable 01/14/21 07:27 Plt Clumps, EDTA Not Reportable 01/14/21 07:27 Large Platelets Not Reportable 01/14/21 07:27 Giant Platelets Not Reportable 01/14/21 07:27 Platelet Satelliting Not Reportable 01/14/21 07:27 Plt Morphology Comment Not Reportable 01/14/21 07:27 RBC Morphology Not Reportable 01/14/21 07:27 Dimorphic RBCs Not Reportable 01/14/21 07:27 Polychromasia Not Reportable 01/14/21 07:27 Hypochromasia Not Reportable 01/14/21 07:27 Poikilocytosis Not Reportable 01/14/21 07:27 Anisocytosis Not Reportable 01/14/21 07:27 Microcytosis Not Reportable 01/14/21 07:27 Macrocytosis Not Reportable 01/14/21 07:27 Spherocytes Not Reportable 01/14/21 07:27 Pappenheimer Bodies Not Reportable 01/14/21 07:27 Sickle Cells Not Reportable 01/14/21 07:27 Target Cells Not Reportable 01/14/21 07:27 Tear Drop Cells Not Reportable 01/14/21 07:27 Ovalocytes Not Reportable 01/14/21 07:27 Helmet Cells Not Reportable 01/14/21 07:27 [place] Bodies Not Reportable 01/14/21 07:27 [place] Rings Not Reportable 01/14/21 07:27 Alna Cells Not Reportable 01/14/21 07:27 Bite Cells Not Reportable 01/14/21 07:27 Crenated Cell Not Reportable 01/14/21 07:27 Elliptocytes Not Reportable 01/14/21 07:27 Acanthocytes (Spur) Not Reportable 01/14/21 07:27 Rouleaux Not Reportable 01/14/21 07:27 Hemoglobin C Crystals Not Reportable 01/14/21 07:27 Schistocytes Not Reportable 01/14/21 07:27 Malaria parasites Not Reportable 01/14/21 07:27 Johnathon Bodies Not Reportable 01/14/21 07:27 Hem Pathologist Commnt No 01/14/21 07:27 Sodium 142 mmol/L (137-145) 01/14/21 07:27 Potassium 4.0 mmol/L (3.6-5.0) 01/14/21 07:27 Chloride 102.9 mmol/L (98-107) 01/14/21 07:27 Carbon Dioxide 29 mmol/L (22-30) 01/14/21 07:27 Anion Gap 14 mmol/L 01/14/21 07:27 BUN 13 mg/dL (9-20) 01/14/21 07:27 Creatinine 0.8 mg/dL (0.8-1.3) 01/14/21 07:27 Estimated GFR > 60 ml/min 01/14/21 07:27 BUN/Creatinine Ratio 16 % 01/14/21 07:27 Glucose 84 mg/dL (75-100) 01/14/21 07:27 POC Glucose 112 mg/dL (70-105) H 12/29/20 00:14 Lactic Acid 1.30 mmol/L (0.7-2.0) 12/28/20 08:13 Calcium 9.5 mg/dL (8.4-10.2) 01/14/21 07:27 Phosphorus 3.70 mg/dL (2.5-4.5) 12/30/20 13:13 Magnesium 2.10 mg/dL (1.7-2.3) 12/30/20 13:13 Total Bilirubin 0.50 mg/dL (0.1-1.2) 12/31/20 05:02 Direct Bilirubin < 0.2 mg/dL (0-0.2) 12/27/20 17:34 Indirect Bilirubin 0.2 mg/dL 12/27/20 17:34 AST 19 units/L (5-40) 12/31/20 05:02 ALT 12 units/L (7-56) 12/31/20 05:02 Alkaline Phosphatase 72 units/L (35-129) 12/31/20 05:02 Ammonia 21.0 umol/L (25-60) L 12/30/20 13:13 Total Protein 7.1 g/dL (6.3-8.2) 12/31/20 05:02 Albumin 3.7 g/dL (3.9-5) L 12/31/20 05:02 Albumin/Globulin Ratio 1.1 % 12/31/20 05:02 Urine Color Straw (Yellow) 12/28/20 02:15 Urine Turbidity Clear (Clear) 12/28/20 02:15 Urine pH 5.0 (5.0-7.0) 12/28/20 02:15 Ur Specific [place] 1.025 (1.003-1.030) 12/28/20 02:15 Urine Protein 100 mg/dl mg/dL (Negative) 12/28/20 02:15 Urine Glucose (UA) Negative mg/dL (Negative) 12/28/20 02:15 Urine Ketones Negative mg/dL (Negative) 12/28/20 02:15 Urine Blood Small (Negative) A 12/28/20 02:15 Urine Nitrite Negative (Negative) 12/28/20 02:15 Ur Reducing Substances Not Reportable 12/28/20 02:15 Urine Bilirubin Negative (Negative) 12/28/20 02:15 Urine Ictotest Not Reportable 12/28/20 02:15 Urine Urobilinogen < 2.0 mg/dL (<2.0) 12/28/20 02:15 Ur Leukocyte Esterase Negative (Negative) 12/28/20 02:15 Urine WBC (Auto) 3.0 /HPF (0.0-6.0) 12/28/20 02:15 Urine RBC (Auto) 4.0 /HPF (0.0-6.0) 12/28/20 02:15 U Epithel Cells (Auto) < 1.0 /HPF (0-13.0) 12/28/20 02:15 Hyaline Casts 1 /LPF 12/28/20 02:15 Granular Casts 1 /LPF 12/28/20 02:15 Urine Mucus Few /HPF 12/28/20 02:15 Salicylates < 0.3 mg/dL (2.8-20.0) L 12/27/20 17:34 Urine Opiates Screen Negative 12/27/20 17:11 Urine Methadone Screen Negative 12/27/20 17:11 Acetaminophen 5.0 ug/mL (10.0-30.0) L 12/27/20 17:34 Ur Barbiturates Screen Negative 12/27/20 17:11 Ur Phencyclidine Scrn Negative 12/27/20 17:11 Ur Amphetamines Screen Negative 12/27/20 17:11 U Benzodiazepines Scrn Negative 12/27/20 17:11 Urine Cocaine Screen Negative 12/27/20 17:11 U Marijuana (THC) Screen Negative 12/27/20 17:11 Drugs of Abuse Note Disclamer 12/27/20 17:11 Plasma/Serum Alcohol < 0.01 % (0-0.07) 12/27/20 17:34 [place]/IV: Voiding Method Condom Catheter Active Medications - Current Medications Current Medications: Generic Name Dose Route Start Last Admin Trade Name Freq PRN Reason Stop Dose Admin Acetaminophen 650 mg 12/27/20 22:21 12/29/20 05:16 Acetaminophen 325 Mg Tab PO 650 mg Q4H PRN Administration Pain MILD(1-3)/Fever >100.5/CARRERA Al Hydrox/Mg Hydrox/Simethicone 30 ml 12/27/20 22:21 Alum-Mag Hydroxide-Simethicone 618-276-53yo/5ml Oral Liqd 30 Ml PO Q4H PRN Indigestion Amlodipine Besylate 2.5 mg 12/29/20 10:00 01/16/21 10:00 Amlodipine 5 Mg Tab PO 2.5 mg QDAY CHELLE Administration Aspirin 81 mg 12/29/20 10:00 01/16/21 13:07 Aspirin 81 Mg Tab Chew PO 81 mg QDAY CHELLE Administration Atorvastatin Calcium 40 mg 12/29/20 22:00 01/15/21 21:35 Atorvastatin 40 Mg Tab PO 40 mg QHS CHELLE Administration Cyanocobalamin 1,000 mcg 12/31/20 15:00 01/16/21 10:00 Cyanocobalamin (Vit B-12) 1000 Mcg Tab PO 1,000 mcg QDAY CHELLE Administration Enoxaparin Sodium 40 mg 12/28/20 10:00 01/16/21 10:00 Enoxaparin 40 Mg/0.4 Ml Inj SUB-Q 40 mg QDAY CHELLE Administration Folic Acid 1 mg 01/03/21 10:00 01/16/21 10:00 Folic Acid 1 Mg Tab PO 1 mg DAILY CHELLE Administration Hydralazine HCl 5 mg 12/27/20 22:35 12/29/20 12:05 Hydralazine 20 Mg/1 Ml Inj IV 5 mg Q4H PRN Administration Hypertension Hydrochlorothiazide 25 mg 12/29/20 10:00 01/16/21 10:00 Hydrochlorothiazide 25 Mg Tab PO 25 mg QDAY CHELLE Administration Levetiracetam 500 mg 01/02/21 10:00 01/16/21 10:00 Levetiracetam 500 Mg Tab PO 500 mg BID CHELLE Administration Lorazepam 2 mg 12/30/20 11:00 12/30/20 22:21 Lorazepam 2 Mg/Ml Vial IV 2 mg Q1HR PRN Administration CIWA-Ar 8-15 Lorazepam 4 mg 12/30/20 11:00 Lorazepam 2 Mg/Ml Vial IV Q1HR PRN CIWA-Ar 16-25 Magnesium Hydroxide 30 ml 12/27/20 22:21 Magnesium Hydroxide (Mom) Oral Liqd Udc PO Q4H PRN Constipation Multivitamins/Minerals 1 each 01/03/21 10:00 01/16/21 10:00 Multivitamins,Ther W-Minerals Tab PO 1 each QDAY CHELLE Administration Naloxone HCl 0.1 mg 12/27/20 22:21 Naloxone 0.4 Mg/1 Ml Inj IV Q2MIN PRN Res Rate </= 8 or 02 SAT < 92% Ondansetron HCl 4 mg 12/27/20 22:21 Ondansetron 4 Mg/2 Ml Inj IV Q8H PRN Nausea And Vomiting Risperidone 1 mg 12/31/20 22:00 01/16/21 10:00 Risperidone 1 Mg Tab PO 1 mg BID CHELLE Administration Sodium Chloride 10 ml 12/28/20 10:00 01/16/21 10:00 Sodium Chloride 0.9% 10 Ml Flush Syringe IV 10 ml BID CHELLE Administration Sodium Chloride 10 ml 12/27/20 22:21 Sodium Chloride 0.9% 10 Ml Flush Syringe IV PRN PRN LINE FLUSH Thiamine HCl 100 mg 01/03/21 10:00 01/16/21 10:00 Thiamine 100 Mg Tab PO 100 mg QDAY CHELLE Administration Valproic Acid 250 mg 01/04/21 13:00 01/16/21 10:00 Valproic Acid 250 Mg/5 Ml Oral Liqd PO 250 mg DAILY CHELLE Administration Nutrition/Malnutrition Assess - Dietary Evaluation Nutrition/Malnutrition Findings: Nutrition Notes Start: 01/03/21 16:36 Freq: Status: Active Protocol: Document 01/10/21 12:20 NOEMI (Rec: 01/10/21 12:32 [facility] [id number]) Nutrition Notes Initial or Follow up Reassessment Current Diagnosis Hypertension Current Diet Acute metabolic encephalopathy , ?EtOH dependence, schizophrenia Labs/Tests No current available Pertinent Medications Reviewed Height 6 ft Weight 91.2 kg [place] Body Weight (kg) 80.90 BMI 27.2 Weight change and time frame Wt change noted. Unsure of accurate admission weight (21. 6kg wt loss x one week?) Weight Status Overweight Subjective/Other Information Visited pt at 11:25. Pt remains confused; no wrist restraints required at this time. He is awaiting placement. He consumed 100% of meals on 01/05; he says he had cereal and juice this am ( although I observed 50% of cereal at bedside). Percent of energy/protein needs met: Likely meeting at least 75% energy and pro needs Burn Absent Trauma Absent Current % PO Good (75-100%) Minimum of two criteria No Interpretation of Weight Loss (severe) >2% in 1 week #1 Nutrition Diagnosis Unintended weight loss Etiology AMS As Evidenced by Signs and Symptoms pt with possible wt loss over past week Is patient on ventilator? No Is Patient Ambulatory and/or Out of Bed No REE-([facility]-confined to bed) 4548.572 Calculation Used for Recommendations [facility] Additional Notes Pro needs 0.8-1g/k-91g/ day Fluid needs 1ml/kcal Nutrition Intervention Change Diet Order: Continue current diet order Goal #1 PO intakes to meet at least 75 % energy and pro needs Goal #2 Wt maintenance Follow-Up By: 01/17/21 Additional Comments F/U: intakes, wt
[2021-01-17] MEDS: levETIRAcetam 500 MG TAB PO SCH ×2 (09:44→22:01)
[2021-01-17] MEDS: risperiDONE 1 MG TAB PO SCH ×2 (09:44→22:01)
[2021-01-17] MEDS: amLODIPine 5 MG TAB PO SCH (09:44)
[2021-01-17] MEDS: FOLIC ACID 1 MG TAB PO SCH (09:44)
[2021-01-17] MEDS: THIAMINE 100 MG TAB PO SCH (09:44)
[2021-01-17] MEDS: hydroCHLOROthiazide 25 MG TAB PO SCH (09:44)
[2021-01-17] MEDS: CYANOCOBALAMIN (VIT B-12) 1000 MCG TAB PO SCH (09:44)
[2021-01-17] MEDS: MULTIVITAMINS,THER W-MINERALS TAB PO SCH (09:45)
[2021-01-17] MEDS: ENOXAPARIN 40 MG/0.4 ML INJ SUB-Q SCH (09:45)
[2021-01-17] MEDS: VALPROIC ACID 250 MG/5 ML ORAL LIQD PO SCH (09:45)
[2021-01-17] MEDS: ASPIRIN 81 MG TAB CHEW PO SCH (09:45)
--- NOTE | 2021-01-17 17:34 | Progress Note ---
Assessment and Plan Assessment and plan: Patient is medically stable for discharge/pending placement --Acute metabolic ncephalopathy CT of the head and urine drug test-negative MRI of brain ordered unable to do due to lack of consent and patient remains confused Chest x-ray negative for acute finding Neurology evaluated the patient --Febrile illness; resolved in the setting of an encephalopathy on admission ID evaluated the patient, treated with empiric antibiotics, requested LP/MRI, no family available, to give consent Unable to do LP or MRI Patient improved back to baseline --Hyponatremia/resolved -- Hypertension; stable Continue current antihypertensives. -- Possible Seizure disorder Seizure precautions, antiepileptic medications, neurology evaluated, signed off --?ETOH abuse thiamine, folic acid, [id number] --History of schizophrenia Continue psych medications psych consulted --DVT prophylaxis Subcutaneous Lovenox Discharge planning; per case management , possible SNF versus prison placement Patient is medically stable for discharge Daily Hospital course: 12/28: Patient now with fever of unknown origin. Still confused discussed with ID will obtain lumbar puncture. 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 MRI is pending. 12/29: Still with low grade fever, continue abx, follow cultures, LP to be done on thursday due to no Radiologist, Neurology input noted. Swallow eval ok, continue diet. start on HCTZ and Norvasc for HTN. No history on patient availab le here yet.] Want CT of the head read as negative during neurologist did review any suspect an acute ischemic stroke starting the patient on aspirin 81 mg daily unfortunately this was not started yesterday not sure why but will start that today. EEG is also ordered for possible subclinical seizures. He refused an ABG. Continue restraints as 12/30: Patient still with confusion, I wonder if he has some etoh issues, will go ahead and start on CIWA protocol in addition to Banana bag. CONTINUE restraints. 12/31: I was able to obtain records from [facility] as patient was recently admitted there on December 20 he was discharged on vitamin B12 1000 mcg daily, ferrous sulfate 325 mg twice a day and Keppra 1000 mg every 12 hours in addition to rest. Do not 1 tablet 2 times a day of 2 mg each. He does have underlying schizophrenia prior history of cocaine abuse and also history of seizure disorder and severe neurocognitive disorder. His court appointed [employer] agent is Grace Padilla phone #[phone]. At the time of his discharge from [place] he was supposed to be placed in a personal jail as he has a history of wandering. I am not sure if this was done. As he was brought to us "found in the [place]". Clinically he is showing some improvement but with the new information will obtain psych consultation. 01/01; could not do the MRI/LP due to his severe agitation And noncooperation, will try MRI study again tomorrow with Ativan 01/02; radiology cannot do lumbar puncture/MRI study due to patient's severe agitation requiring four-point restraints And no family/contact center associate available to consent for the above tests when patie nt is calm and stable 01/03; patient continues to be agitated requiring restraints, noncooperative and unsteady for lumbar punctures and MRI Patient has no family to give consent, case management informed 01/04; patient is more calm, however gets agitated, CM informed me that patient's Michelle Padilla court appointed guardian, will call me To discuss and give consent for the tests and procedures ,waiting for patient's guardian call 01/05; still waiting for patient's guardian Indra Padilla to call and give consent for MRI/LP 01/06: Did not get a call from the patient's guardian Indra Padilla [Case luna gilman stated that patient's guardian will call me ] 01/07; patient's guardian Michelle Padilla did not contact me , CM could not reach her. No consent for LP/MRI Possible placement to [facility]. Discharge planning per case management 01/08: Patient remains restrained, continue to follow clinically. floodplain manager working on placement 01/09: case management rn working on SNF placement, follow clinically, patient remains confused and requiring restraints. Continue empiric antibiotics per ID recommendation. 01/10: Last day of antibiotic today, pending SNF placement 01/11: Completed empiric antibiotics, pending SNF placement, patient remains confused. We will monitor off restrain, continue supportive care 01/12: Pending SNF placement, continue to monitor off restrain, provide supportive care 01/13: continue to monitor off restrain, provide supportive care. ending SNF placement 01/14: pending SNF placement, continue to monitor off restrain, provide supportive care 01/15; pending SNF placement, patient is off restraints, stable 01/16; pending placement, patient is clinically stable for discharge, DC planning per case management 01/17; pending placement SNF vs prison Medically stable for discharge History Interval history: Patient is medically stable for discharge to SNF versus prison Patient feels better, no agitation or aggression or confusion Vital signs noted, no new complaints Hospitalist Physical - Constitutional Vitals: Temp Pulse Resp BP Pulse Ox 97.8 F 80 150 H 111/57 95 01/17/21 15:56 01/17/21 15:56 01/17/21 15:56 01/17/21 15:56 01/17/21 15:56 General appearance: Present: no acute distress, well-nourished, other (Agitated and restrained) - EENT Eyes: Present: PERRL, EOM intact - Neck Neck: Present: supple, normal ROM - Respiratory Respiratory effort: normal Respiratory: bilateral: diminished, negative: rales, rhonchi, wheezing - Cardiovascular Rhythm: regular Heart Sounds: Present: S1 & S2 - Extremities Extremities: no ischemia, No edema - Abdominal General gastrointestinal: soft, non-tender, non-distended, normal bowel sounds - Integumentary Integumentary: Present: clear, warm - Psychiatric Psychiatric: cooperative, other (Confused at times) - Neurologic Neurologic: moves all extremities Results - Labs CBC & Chem 7: 01/14/21 07:27 01/14/21 07:27 Labs: Laboratory Last Values WBC 5.9 K/mm3 (4.5-11.0) 01/14/21 07:27 RBC 5.13 M/mm3 (3.65-5.03) H 01/14/21 07:27 Hgb 12.0 gm/dl (11.8-15.2) 01/14/21 07:27 Hct 36.8 % (35.5-45.6) 01/14/21 07:27 MCV 72 fl (84-94) L 01/14/21 07:27 MCH 23 pg (28-32) L 01/14/21 07:27 MCHC 33 % (32-34) 01/14/21 07:27 RDW 15.8 % (13.2-15.2) H 01/14/21 07:27 Plt Count 294 K/mm3 (140-440) 01/14/21 07:27 Lymph % (Auto) 6.4 % (13.4-35.0) L 12/27/20 17:34 [place]yer % (Auto) 3.9 % (0.0-7.3) 12/27/20 17:34 Eos % (Auto) 0.2 % (0.0-4.3) 12/27/20 17:34 Baso % (Auto) Personal Assistant 01/14/21 07:27 Lymph # (Auto) 0.7 K/mm3 (1.2-5.4) L 12/27/20 17:34 Sawyer # (Auto) 0.4 K/mm3 (0.0-0.8) 12/27/20 17:34 Eos # (Auto) 0.0 K/mm3 (0.0-0.4) 12/27/20 17:34 Baso # (Auto) 0.1 K/mm3 (0.0-0.1) 12/27/20 17:34 Add Manual Diff Complete 01/14/21 07:27 Total Counted 100 01/14/21 07:27 Seg Neutrophils % 89.0 % (40.0-70.0) H 12/27/20 17:34 Seg Neuts % (Manual) 76.0 % (40.0-70.0) H 01/14/21 07:27 Band Neutrophils % 1.0 % 01/14/21 07:27 Lymphocytes % (Manual) 8.0 % (13.4-35.0) L 01/14/21 07:27 Reactive Lymphs % (Man) 1.0 % 01/14/21 07:27 Monocytes % (Manual) 4.0 % (0.0-7.3) 01/14/21 07:27 Eosinophils % (Manual) 1.0 % (0.0-4.3) 01/14/21 07:27 Myelocytes % 9.0 % 01/14/21 07:27 Nucleated RBC % Not Reportable 01/14/21 07:27 Seg Neutrophils # 9.5 K/mm3 (1.8-7.7) H 12/27/20 17:34 Seg Neutrophils # Man 4.5 K/mm3 (1.8-7.7) 01/14/21 07:27 Band Neutrophils # 0.1 K/mm3 01/14/21 07:27 Lymphocytes # (Manual) 0.5 K/mm3 (1.2-5.4) L 01/14/21 07:27 Abs React Lymphs (Man) 0.1 K/mm3 01/14/21 07:27 Monocytes # (Manual) 0.2 K/mm3 (0.0-0.8) 01/14/21 07:27 Eosinophils # (Manual) 0.1 K/mm3 (0.0-0.4) 01/14/21 07:27 Basophils # (Manual) 0.0 K/mm3 (0.0-0.1) 01/14/21 07:27 Metamyelocytes # 0.0 K/mm3 01/14/21 07:27 Myelocytes # 0.5 K/mm3 01/14/21 07:27 Promyelocytes # 0.0 K/mm3 01/14/21 07:27 Blast Cells # 0.0 K/mm3 01/14/21 07:27 WBC Morphology Not Reportable 01/14/21 07:27 Hypersegmented Neuts Not Reportable 01/14/21 07:27 Hyposegmented Neuts Not Reportable 01/14/21 07:27 Hypogranular Neuts Not Reportable 01/14/21 07:27 Smudge Cells Not Reportable 01/14/21 07:27 Toxic Granulation Not Reportable 01/14/21 07:27 Toxic Vacuolation Not Reportable 01/14/21 07:27 Dohle Bodies Not Reportable 01/14/21 07:27 Pelger-Huet Anomaly Not Reportable 01/14/21 07:27 Diana Rods Not Reportable 01/14/21 07:27 Platelet Estimate Consistent w auto 01/14/21 07:27 Clumped Platelets Not Reportable 01/14/21 07:27 Plt Clumps, EDTA Not Reportable 01/14/21 07:27 Large Platelets Not Reportable 01/14/21 07:27 Giant Platelets Not Reportable 01/14/21 07:27 Platelet Satelliting Not Reportable 01/14/21 07:27 Plt Morphology Comment Not Reportable 01/14/21 07:27 RBC Morphology Not Reportable 01/14/21 07:27 Dimorphic RBCs Not Reportable 01/14/21 07:27 Polychromasia Not Reportable 01/14/21 07:27 Hypochromasia Not Reportable 01/14/21 07:27 Poikilocytosis Not Reportable 01/14/21 07:27 Anisocytosis Not Reportable 01/14/21 07:27 Microcytosis Not Reportable 01/14/21 07:27 Macrocytosis Not Reportable 01/14/21 07:27 Spherocytes Not Reportable 01/14/21 07:27 Pappenheimer Bodies Not Reportable 01/14/21 07:27 Sickle Cells Not Reportable 01/14/21 07:27 Target Cells Not Reportable 01/14/21 07:27 Tear Drop Cells Not Reportable 01/14/21 07:27 Ovalocytes Not Reportable 01/14/21 07:27 Helmet Cells Not Reportable 01/14/21 07:27 [place] Bodies Not Reportable 01/14/21 07:27 [place] Rings Not Reportable 01/14/21 07:27 [place] Cells Not Reportable 01/14/21 07:27 Bite Cells Not Reportable 01/14/21 07:27 Crenated Cell Not Reportable 01/14/21 07:27 Elliptocytes Not Reportable 01/14/21 07:27 Acanthocytes (Spur) Not Reportable 01/14/21 07:27 Rouleaux Not Reportable 01/14/21 07:27 Hemoglobin C Crystals Not Reportable 01/14/21 07:27 Schistocytes Not Reportable 01/14/21 07:27 Malaria parasites Not Reportable 01/14/21 07:27 [place] Bodies Not Reportable 01/14/21 07:27 Hem Pathologist Commnt No 01/14/21 07:27 Sodium 142 mmol/L (137-145) 01/14/21 07:27 Potassium 4.0 mmol/L (3.6-5.0) 01/14/21 07:27 Chloride 102.9 mmol/L (98-107) 01/14/21 07:27 Carbon Dioxide 29 mmol/L (22-30) 01/14/21 07:27 Anion Gap 14 mmol/L 01/14/21 07:27 BUN 13 mg/dL (9-20) 01/14/21 07:27 Creatinine 0.8 mg/dL (0.8-1.3) 01/14/21 07:27 Estimated GFR > 60 ml/min 01/14/21 07:27 BUN/Creatinine Ratio 16 % 01/14/21 07:27 Glucose 84 mg/dL (75-100) 01/14/21 07:27 POC Glucose 112 mg/dL (70-105) H 12/29/20 00:14 Lactic Acid 1.30 mmol/L (0.7-2.0) 12/28/20 08:13 Calcium 9.5 mg/dL (8.4-10.2) 01/14/21 07:27 Phosphorus 3.70 mg/dL (2.5-4.5) 12/30/20 13:13 Magnesium 2.10 mg/dL (1.7-2.3) 12/30/20 13:13 Total Bilirubin 0.50 mg/dL (0.1-1.2) 12/31/20 05:02 Direct Bilirubin < 0.2 mg/dL (0-0.2) 12/27/20 17:34 Indirect Bilirubin 0.2 mg/dL 12/27/20 17:34 AST 19 units/L (5-40) 12/31/20 05:02 ALT 12 units/L (7-56) 12/31/20 05:02 Alkaline Phosphatase 72 units/L (35-129) 12/31/20 05:02 Ammonia 21.0 umol/L (25-60) L 12/30/20 13:13 Total Protein 7.1 g/dL (6.3-8.2) 12/31/20 05:02 Albumin 3.7 g/dL (3.9-5) L 12/31/20 05:02 Albumin/Globulin Ratio 1.1 % 12/31/20 05:02 Urine Color Straw (Yellow) 12/28/20 02:15 Urine Turbidity Clear (Clear) 12/28/20 02:15 Urine pH 5.0 (5.0-7.0) 12/28/20 02:15 Ur Specific [place] 1.025 (1.003-1.030) 12/28/20 02:15 Urine Protein 100 mg/dl mg/dL (Negative) 12/28/20 02:15 Urine Glucose (UA) Negative mg/dL (Negative) 12/28/20 02:15 Urine Ketones Negative mg/dL (Negative) 12/28/20 02:15 Urine Blood Small (Negative) A 12/28/20 02:15 Urine Nitrite Negative (Negative) 12/28/20 02:15 Ur Reducing Substances Not Reportable 12/28/20 02:15 Urine Bilirubin Negative (Negative) 12/28/20 02:15 Urine Ictotest Not Reportable 12/28/20 02:15 Urine Urobilinogen < 2.0 mg/dL (<2.0) 12/28/20 02:15 Ur Leukocyte Esterase Negative (Negative) 12/28/20 02:15 Urine WBC (Auto) 3.0 /HPF (0.0-6.0) 12/28/20 02:15 Urine RBC (Auto) 4.0 /HPF (0.0-6.0) 12/28/20 02:15 U Epithel Cells (Auto) < 1.0 /HPF (0-13.0) 12/28/20 02:15 Hyaline Casts 1 /LPF 12/28/20 02:15 Granular Casts 1 /LPF 12/28/20 02:15 Urine Mucus Few /HPF 12/28/20 02:15 Salicylates < 0.3 mg/dL (2.8-20.0) L 12/27/20 17:34 Urine Opiates Screen Negative 12/27/20 17:11 Urine Methadone Screen Negative 12/27/20 17:11 Acetaminophen 5.0 ug/mL (10.0-30.0) L 12/27/20 17:34 Ur Barbiturates Screen Negative 12/27/20 17:11 Ur Phencyclidine Scrn Negative 12/27/20 17:11 Ur Amphetamines Screen Negative 12/27/20 17:11 U Benzodiazepines Scrn Negative 12/27/20 17:11 Urine Cocaine Screen Negative 12/27/20 17:11 U Marijuana (THC) Screen Negative 12/27/20 17:11 Drugs of Abuse Note Disclamer 12/27/20 17:11 Plasma/Serum Alcohol < 0.01 % (0-0.07) 12/27/20 17:34 [place]/IV: Voiding Method Toilet Active Medications - Current Medications Current Medications: Generic Name Dose Route Start Last Admin Trade Name Freq PRN Reason Stop Dose Admin Acetaminophen 650 mg 12/27/20 22:21 12/29/20 05:16 Acetaminophen 325 Mg Tab PO 650 mg Q4H PRN Administration Pain MILD(1-3)/Fever >100.5/CARRERA Al Hydrox/Mg Hydrox/Simethicone 30 ml 12/27/20 22:21 Alum-Mag Hydroxide-Simethicone [id number]/5ml Oral Liqd 30 Ml PO Q4H PRN Indigestion Amlodipine Besylate 2.5 mg 12/29/20 10:00 01/17/21 09:44 Amlodipine 5 Mg Tab PO 2.5 mg QDAY CHELLE Administration Aspirin 81 mg 12/29/20 10:00 01/17/21 09:45 Aspirin 81 Mg Tab Chew PO 81 mg QDAY CHELLE Administration Atorvastatin Calcium 40 mg 12/29/20 22:00 01/16/21 21:57 Atorvastatin 40 Mg Tab PO 40 mg QHS CHELLE Administration Cyanocobalamin 1,000 mcg 12/31/20 15:00 01/17/21 09:44 Cyanocobalamin (Vit B-12) 1000 Mcg Tab PO 1,000 mcg QDAY CHELLE Administration Enoxaparin Sodium 40 mg 12/28/20 10:00 01/17/21 09:45 Enoxaparin 40 Mg/0.4 Ml Inj SUB-Q 40 mg QDAY CHELLE Administration Folic Acid 1 mg 01/03/21 10:00 01/17/21 09:44 Folic Acid 1 Mg Tab PO 1 mg DAILY CHELLE Administration Hydralazine HCl 5 mg 12/27/20 22:35 12/29/20 12:05 Hydralazine 20 Mg/1 Ml Inj IV 5 mg Q4H PRN Administration Hypertension Hydrochlorothiazide 25 mg 12/29/20 10:00 01/17/21 09:44 Hydrochlorothiazide 25 Mg Tab PO 25 mg QDAY CHELLE Administration Levetiracetam 500 mg 01/02/21 10:00 01/17/21 09:44 Levetiracetam 500 Mg Tab PO 500 mg BID CHELLE Administration Lorazepam 2 mg 12/30/20 11:00 12/30/20 22:21 Lorazepam 2 Mg/Ml Vial IV 2 mg Q1HR PRN Administration CIWA-Ar 8-15 Lorazepam 4 mg 12/30/20 11:00 Lorazepam 2 Mg/Ml Vial IV Q1HR PRN CIWA-Ar 16-25 Magnesium Hydroxide 30 ml 12/27/20 22:21 Magnesium Hydroxide (Mom) Oral Liqd Udc PO Q4H PRN Constipation Multivitamins/Minerals 1 each 10/07/21 10:00 01/17/21 09:45 Multivitamins,Ther W-Minerals Tab PO 1 each QDAY CHELLE Administration Naloxone HCl 0.1 mg 12/27/20 22:21 Naloxone 0.4 Mg/1 Ml Inj IV Q2MIN PRN Res Rate </= 8 or 02 SAT < 92% Ondansetron HCl 4 mg 12/27/20 22:21 Ondansetron 4 Mg/2 Ml Inj IV Q8H PRN Nausea And Vomiting Risperidone 1 mg 12/31/20 22:00 01/17/21 09:44 Risperidone 1 Mg Tab PO 1 mg BID CHELLE Administration Sodium Chloride 10 ml 12/28/20 10:00 01/17/21 09:45 Sodium Chloride 0.9% 10 Ml Flush Syringe IV Not Given BID CHELLE Sodium Chloride 10 ml 12/27/20 22:21 Sodium Chloride 0.9% 10 Ml Flush Syringe IV PRN PRN LINE FLUSH Thiamine HCl 100 mg 01/03/21 10:00 01/17/21 09:44 Thiamine 100 Mg Tab PO 100 mg QDAY CHELLE Administration Valproic Acid 250 mg 01/04/21 13:00 01/17/21 09:45 Valproic Acid 250 Mg/5 Ml Oral Liqd PO 250 mg DAILY CHELLE Administration Nutrition/Malnutrition Assess - Dietary Evaluation Nutrition/Malnutrition Findings: Nutrition Notes Start: 01/03/21 1 6:36 Freq: Status: Active Protocol: Document 01/17/21 14:09 GB (Rec: 01/17/21 14:17 GB [id number]) Nutrition Notes Initial or Follow up Reassessment Current Diagnosis Hypertension Other Pertinent Diagnosis Acute metabolic encephalopathy , ?EtOH dependence, schizophrenia Current Diet Regular Diet Labs/Tests 01/14: unremarkable Pertinent Medications Vitamin B12, Folic Acid, multivitamins/minerals, Vit B1 Height 6 ft Weight 91.2 kg [place] Body Weight (kg) 80.90 BMI 27.2 Weight change and time frame No new weights in past week since last assessment Weight Status Appropriate Subjective/Other Information Pt awaiting placement. PO intake recorded as 100%. note 01/16: pt cleared for discharge Last BM 01/15 Percent of energy/protein needs met: Likely meeting at least 75% energy and pro needs Burn Absent Trauma Absent GI Symptoms None Food Allergy No Skin Integrity/Comment no complications reported Current % PO Good (75-100%) Minimum of two criteria No #1 Nutrition Diagnosis Unintended weight loss Comments: 01/17: no new weights since last assessment- post one week Etiology AMS As Evidenced by Signs and Symptoms pt with possible wt loss over past week Diagnosis Progress(for reassessment Continues documentation) Is patient on ventilator? No Is Patient Ambulatory and/or Out of Bed No REE-([facility]-confined to bed) 2116.668 Kcal/Kg value to use for calculation 20 Approximate Energy Requirements Using 1824 kcal/Kg Calculation Used for Recommendations [facility] Additional Notes Pro needs 0.8-1g/kg @ 91k -91g/day Fluid needs 1ml/kcal Nutrition Intervention Change Diet Order: Continue current diet order Nutrition Support: n/a Add Supplement/Snack (indicate name/kcal n/a /protein ) Goal #1 PO intake of meals to be 75% or greater daily for LOS Goal #2 Wt to maintain within +/-3% current weight for LOS Follow-Up By: 01/31/21 Additional Comments F/U: intakes, wt
[2021-01-18] MEDS: THIAMINE 100 MG TAB PO SCH (09:04)
[2021-01-18] MEDS: VALPROIC ACID 250 MG/5 ML ORAL LIQD PO SCH (09:04)
[2021-01-18] MEDS: CYANOCOBALAMIN (VIT B-12) 1000 MCG TAB PO SCH (09:04)
[2021-01-18] MEDS: amLODIPine 5 MG TAB PO SCH (09:04)
[2021-01-18] MEDS: ENOXAPARIN 40 MG/0.4 ML INJ SUB-Q SCH (09:04)
[2021-01-18] MEDS: MULTIVITAMINS,THER W-MINERALS TAB PO SCH (09:04)
[2021-01-18] MEDS: levETIRAcetam 500 MG TAB PO SCH ×2 (09:04→21:57)
[2021-01-18] MEDS: hydroCHLOROthiazide 25 MG TAB PO SCH (09:04)
[2021-01-18] MEDS: risperiDONE 1 MG TAB PO SCH ×2 (09:04→21:57)
[2021-01-18] MEDS: FOLIC ACID 1 MG TAB PO SCH (09:04)
[2021-01-18] MEDS: ASPIRIN 81 MG TAB CHEW PO SCH (09:04)
--- NOTE | 2021-01-18 10:31 | Progress Note ---
Assessment and Plan Assessment and plan: Patient is medically stable for discharge/pending placement --Acute metabolic ncephalopathy CT of the head and urine drug test-negative MRI of brain ordered unable to do due to lack of consent and patient remains confused Chest x-ray negative for acute finding Neurology evaluated the patient --Febrile illness; resolved in the setting of an encephalopathy on admission ID evaluated the patient, treated with empiric antibiotics, requested LP/MRI, no family available, to give consent Unable to do LP or MRI Patient improved back to baseline --Hyponatremia/resolved -- Hypertension; stable Continue current antihypertensives. -- Possible Seizure disorder Seizure precautions, antiepileptic medications, neurology evaluated, signed off --?ETOH abuse thiamine, folic acid, [id number] --History of schizophrenia Continue psych medications psych consulted --DVT prophylaxis Subcutaneous Lovenox Discharge planning; per case management , possible SNF versus custodial placement Patient is medically stable for discharge Daily Hospital course: 12/28: Patient now with fever of unknown origin. Still confused discussed with ID will obtain lumbar puncture. 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 MRI is pending. 12/29: Still with low grade fever, continue abx, follow cultures, LP to be done on thursday due to no Radiologist, Neurology input noted. Swallow eval ok, continue diet. start on HCTZ and Norvasc for HTN. No history on patient availab le here yet.] Want CT of the head read as negative during neurologist did review any suspect an acute ischemic stroke starting the patient on aspirin 81 mg daily unfortunately this was not started yesterday not sure why but will start that today. EEG is also ordered for possible subclinical seizures. He refused an ABG. Continue restraints as 12/30: Patient still with confusion, I wonder if he has some etoh issues, will go ahead and start on CIWA protocol in addition to Banana bag. CONTINUE restraints. 12/31: I was able to obtain records from [facility] as patient was recently admitted there on December 20 he was discharged on vitamin B12 1000 mcg daily, ferrous sulfate 325 mg twice a day and Keppra 1000 mg every 12 hours in addition to rest. Do not 1 tablet 2 times a day of 2 mg each. He does have underlying schizophrenia prior history of cocaine abuse and also history of seizure disorder and severe neurocognitive disorder. His court appointed [employer] agent is Grace Padilla phone #[phone]. At the time of his discharge from [facility] he was supposed to be placed in a personal retirement as he has a history of wandering. I am not sure if this was done. As he was brought to us "found in the aguirre". Clinically he is showing some improvement but with the new information will obtain psych consultation. 01/01; could not do the MRI/LP due to his severe agitation And noncooperation, will try MRI study again tomorrow with Ativan 01/02; radiology cannot do lumbar puncture/MRI study due to patient's severe agitation requiring four-point restraints And no family/storeperson available to consent for the above tests when patie nt is calm and stable 01/03; patient continues to be agitated requiring restraints, noncooperative and unsteady for lumbar punctures and MRI Patient has no family to give consent, case management informed 01/04; patient is more calm, however gets agitated, CM informed me that patient's Michelle Padilla court appointed guardian, will call me To discuss and give consent for the tests and procedures ,waiting for patient's guardian call 01/05; still waiting for patient's guardian Indra Padilla to call and give consent for MRI/LP 01/06: Did not get a call from the patient's guardian Indra Padilla [Case luna gilman stated that patient's guardian will call me ] 01/07; patient's guardian Michelle Padilla did not contact me , CM could not reach her. No consent for LP/MRI Possible placement to [facility]. Discharge planning per case management 01/08: Patient remains restrained, continue to follow clinically. skating rink manager working on placement 01/09: returned case inspector working on SNF placement, follow clinically, patient remains confused and requiring restraints. Continue empiric antibiotics per ID recommendation. 01/10: Last day of antibiotic today, pending SNF placement 01/11: Completed empiric antibiotics, pending SNF placement, patient remains confused. We will monitor off restrain, continue supportive care 01/12: Pending SNF placement, continue to monitor off restrain, provide supportive care 01/13: continue to monitor off restrain, provide supportive care. ending SNF placement 01/14: pending SNF placement, continue to monitor off restrain, provide supportive care 01/15; pending SNF placement, patient is off restraints, stable 01/16; pending placement, patient is clinically stable for discharge, DC planning per case management 01/17; pending placement SNF vs custodial Medically stable for discharge 01/18/21 Patient medically stable for discharge. I discussed with case management. They are working on SNF placement. History Interval history: No new complaints Hospitalist Physical - Physical exam Narrative exam: Gen: Not in acute distress HEENT:Normocephalic,atraumatic Neck:supple, No JVD Lungs:clear to auscultation bilaterally, no wheeze Heart:S1 and S2 reg, no murmurs, rubs or gallop Abd:soft, non tender, non distended, normal bowel sounds Ext; No edema, no clubbing, no cyanosis Neuro:Awake,alert, moves all ext, sometims confused - Constitutional Vitals: Temp Pulse Resp BP Pulse Ox 98.0 F 71 18 111/71 95 01/18/21 07:52 01/18/21 07:52 01/18/21 07:52 01/18/21 07:52 01/18/21 07:52 General appearance: Present: no acute distress, well-nourished Results - Labs CBC & Chem 7: 01/14/21 07:27 01/14/21 07:27 Labs: Laboratory Last Values WBC 5.9 K/mm3 (4.5-11.0) 01/14/21 07:27 RBC 5.13 M/mm3 (3.65-5.03) H 01/14/21 07:27 Hgb 12.0 gm/dl (11.8-15.2) 01/14/21 07:27 Hct 36.8 % (35.5-45.6) 01/14/21 07:27 MCV 72 fl (84-94) L 01/14/21 07:27 MCH 23 pg (28-32) L 01/14/21 07:27 MCHC 33 % (32-34) 01/14/21 07:27 RDW 15.8 % (13.2-15.2) H 01/14/21 07:27 Plt Count 294 K/mm3 (140-440) 01/14/21 07:27 Lymph % (Auto) 6.4 % (13.4-35.0) L 12/27/20 17:34 [place]chran % (Auto) 3.9 % (0.0-7.3) 12/27/20 17:34 Eos % (Auto) 0.2 % (0.0-4.3) 12/27/20 17:34 Baso % (Auto) Medical Physicist 01/14/21 07:27 Lymph # (Auto) 0.7 K/mm3 (1.2-5.4) L 12/27/20 17:34 [place]chran # (Auto) 0.4 K/mm3 (0.0-0.8) 12/27/20 17:34 Eos # (Auto) 0.0 K/mm3 (0.0-0.4) 12/27/20 17:34 Baso # (Auto) 0.1 K/mm3 (0.0-0.1) 12/27/20 17:34 Add Manual Diff Complete 01/14/21 07:27 Total Counted 100 01/14/21 07:27 Seg Neutrophils % 89.0 % (40.0-70.0) H 12/27/20 17:34 Seg Neuts % (Manual) 76.0 % (40.0-70.0) H 01/14/21 07:27 Band Neutrophils % 1.0 % 01/14/21 07:27 Lymphocytes % (Manual) 8.0 % (13.4-35.0) L 01/14/21 07:27 Reactive Lymphs % (Man) 1.0 % 01/14/21 07:27 Monocytes % (Manual) 4.0 % (0.0-7.3) 01/14/21 07:27 Eosinophils % (Manual) 1.0 % (0.0-4.3) 01/14/21 07:27 Myelocytes % 9.0 % 01/14/21 07:27 Nucleated RBC % Not Reportable 01/14/21 07:27 Seg Neutrophils # 9.5 K/mm3 (1.8-7.7) H 12/27/20 17:34 Seg Neutrophils # Man 4.5 K/mm3 (1.8-7.7) 01/14/21 07:27 Band Neutrophils # 0.1 K/mm3 01/14/21 07:27 Lymphocytes # (Manual) 0.5 K/mm3 (1.2-5.4) L 01/14/21 07:27 Abs React Lymphs (Man) 0.1 K/mm3 01/14/21 07:27 Monocytes # (Manual) 0.2 K/mm3 (0.0-0.8) 01/14/21 07:27 Eosinophils # (Manual) 0.1 K/mm3 (0.0-0.4) 01/14/21 07:27 Basophils # (Manual) 0.0 K/mm3 (0.0-0.1) 01/14/21 07:27 Metamyelocytes # 0.0 K/mm3 01/14/21 07:27 Myelocytes # 0.5 K/mm3 01/14/21 07:27 Promyelocytes # 0.0 K/mm3 01/14/21 07:27 Blast Cells # 0.0 K/mm3 01/14/21 07:27 WBC Morphology Not Reportable 01/14/21 07:27 Hypersegmented Neuts Not Reportable 01/14/21 07:27 Hyposegmented Neuts Not Reportable 01/14/21 07:27 Hypogranular Neuts Not Reportable 01/14/21 07:27 Smudge Cells Not Reportable 01/14/21 07:27 Toxic Granulation Not Reportable 01/14/21 07:27 Toxic Vacuolation Not Reportable 01/14/21 07:27 Dohle Bodies Not Reportable 01/14/21 07:27 Pelger-Huet Anomaly Not Reportable 01/14/21 07:27 Diana Rods Not Reportable 01/14/21 07:27 Platelet Estimate Consistent w auto 01/14/21 07:27 Clumped Platelets Not Reportable 01/14/21 07:27 Plt Clumps, EDTA Not Reportable 01/14/21 07:27 Large Platelets Not Reportable 01/14/21 07:27 Giant Platelets Not Reportable 01/14/21 07:27 Platelet Satelliting Not Reportable 01/14/21 07:27 Plt Morphology Comment Not Reportable 01/14/21 07:27 RBC Morphology Not Reportable 01/14/21 07:27 Dimorphic RBCs Not Reportable 01/14/21 07:27 Polychromasia Not Reportable 01/14/21 07:27 Hypochromasia Not Reportable 01/14/21 07:27 Poikilocytosis Not Reportable 01/14/21 07:27 Anisocytosis Not Reportable 01/14/21 07:27 Microcytosis Not Reportable 01/14/21 07:27 Macrocytosis Not Reportable 01/14/21 07:27 Spherocytes Not Reportable 01/14/21 07:27 Pappenheimer Bodies Not Reportable 01/14/21 07:27 Sickle Cells Not Reportable 01/14/21 07:27 Target Cells Not Reportable 01/14/21 07:27 Tear Drop Cells Not Reportable 01/14/21 07:27 Ovalocytes Not Reportable 01/14/21 07:27 Helmet Cells Not Reportable 01/14/21 07:27 [place] Bodies Not Reportable 01/14/21 07:27 [place] Rings Not Reportable 01/14/21 07:27 Umpire Cells Not Reportable 01/14/21 07:27 Bite Cells Not Reportable 01/14/21 07:27 Crenated Cell Not Reportable 01/14/21 07:27 Elliptocytes Not Reportable 01/14/21 07:27 Acanthocytes (Spur) Not Reportable 01/14/21 07:27 Rouleaux Not Reportable 01/14/21 07:27 Hemoglobin C Crystals Not Reportable 01/14/21 07:27 Schistocytes Not Reportable 01/14/21 07:27 Malaria parasites Not Reportable 01/14/21 07:27 [place]athon Bodies Not Reportable 01/14/21 07:27 Hem Pathologist Commnt No 01/14/21 07:27 Sodium 142 mmol/L (137-145) 01/14/21 07:27 Potassium 4.0 mmol/L (3.6-5.0) 01/14/21 07:27 Chloride 102.9 mmol/L (98-107) 01/14/21 07:27 Carbon Dioxide 29 mmol/L (22-30) 01/14/21 07:27 Anion Gap 14 mmol/L 01/14/21 07:27 BUN 13 mg/dL (9-20) 01/14/21 07:27 Creatinine 0.8 mg/dL (0.8-1.3) 01/14/21 07:27 Estimated GFR > 60 ml/min 01/14/21 07:27 BUN/Creatinine Ratio 16 % 01/14/21 07:27 Glucose 84 mg/dL (75-100) 01/14/21 07:27 POC Glucose 112 mg/dL (70-105) H 12/29/20 00:14 Lactic Acid 1.30 mmol/L (0.7-2.0) 12/28/20 08:13 Calcium 9.5 mg/dL (8.4-10.2) 01/14/21 07:27 Phosphorus 3.70 mg/dL (2.5-4.5) 12/30/20 13:13 Magnesium 2.10 mg/dL (1.7-2.3) 12/30/20 13:13 Total Bilirubin 0.50 mg/dL (0.1-1.2) 12/31/20 05:02 Direct Bilirubin < 0.2 mg/dL (0-0.2) 12/27/20 17:34 Indirect Bilirubin 0.2 mg/dL 12/27/20 17:34 AST 19 units/L (5-40) 12/31/20 05:02 ALT 12 units/L (7-56) 12/31/20 05:02 Alkaline Phosphatase 72 units/L (35-129) 12/31/20 05:02 Ammonia 21.0 umol/L (25-60) L 12/30/20 13:13 Total Protein 7.1 g/dL (6.3-8.2) 12/31/20 05:02 Albumin 3.7 g/dL (3.9-5) L 12/31/20 05:02 Albumin/Globulin Ratio 1.1 % 12/31/20 05:02 Urine Color Straw (Yellow) 12/28/20 02:15 Urine Turbidity Clear (Clear) 12/28/20 02:15 Urine pH 5.0 (5.0-7.0) 12/28/20 02:15 Ur Specific [place] 1.025 (1.003-1.030) 12/28/20 02:15 Urine Protein 100 mg/dl mg/dL (Negative) 12/28/20 02:15 Urine Glucose (UA) Negative mg/dL (Negative) 12/28/20 02:15 Urine Ketones Negative mg/dL (Negative) 12/28/20 02:15 Urine Blood Small (Negative) A 12/28/20 02:15 Urine Nitrite Negative (Negative) 12/28/20 02:15 Ur Reducing Substances Not Reportable 12/28/20 02:15 Urine Bilirubin Negative (Negative) 12/28/20 02:15 Urine Ictotest Not Reportable 12/28/20 02:15 Urine Urobilinogen < 2.0 mg/dL (<2.0) 12/28/20 02:15 Ur Leukocyte Esterase Negative (Negative) 12/28/20 02:15 Urine WBC (Auto) 3.0 /HPF (0.0-6.0) 12/28/20 02:15 Urine RBC (Auto) 4.0 /HPF (0.0-6.0) 12/28/20 02:15 U Epithel Cells (Auto) < 1.0 /HPF (0-13.0) 12/28/20 02:15 Hyaline Casts 1 /LPF 12/28/20 02:15 Granular Casts 1 /LPF 12/28/20 02:15 Urine Mucus Few /HPF 12/28/20 02:15 Salicylates < 0.3 mg/dL (2.8-20.0) L 12/27/20 17:34 Urine Opiates Screen Negative 12/27/20 17:11 Urine Methadone Screen Negative 12/27/20 17:11 Acetaminophen 5.0 ug/mL (10.0-30.0) L 12/27/20 17:34 Ur Barbiturates Screen Negative 12/27/20 17:11 Ur Phencyclidine Scrn Negative 12/27/20 17:11 Ur Amphetamines Screen Negative 12/27/20 17:11 U Benzodiazepines Scrn Negative 12/27/20 17:11 Urine Cocaine Screen Negative 12/27/20 17:11 U Marijuana (THC) Screen Negative 12/27/20 17:11 Drugs of Abuse Note Disclamer 12/27/20 17:11 Plasma/Serum Alcohol < 0.01 % (0-0.07) 12/27/20 17:34 [place]/IV: Voiding Method Toilet Active Medications - Current Medications Current Medications: Generic Name Dose Route Start Last Admin Trade Name Freq PRN Reason Stop Dose Admin Acetaminophen 650 mg 12/27/20 22:21 12/29/20 05:16 Acetaminophen 325 Mg Tab PO 650 mg Q4H PRN Administration Pain MILD(1-3)/Fever >100.5/CARRERA Al Hydrox/Mg Hydrox/Simethicone 30 ml 12/27/20 22:21 Alum-Mag Hydroxide-Simethicone [id number]/5ml Oral Liqd 30 Ml PO Q4H PRN Indigestion Amlodipine Besylate 2.5 mg 12/29/20 10:00 01/18/21 09:04 Amlodipine 5 Mg Tab PO 2.5 mg QDAY CHELLE Administration Aspirin 81 mg 12/29/20 10:00 01/18/21 09:04 Aspirin 81 Mg Tab Chew PO 81 mg QDAY CHELLE Administration Atorvastatin Calcium 40 mg 12/29/20 22:00 01/17/21 22:01 Atorvastatin 40 Mg Tab PO 40 mg QHS CHELLE Administration Cyanocobalamin 1,000 mcg 12/31/20 15:00 01/18/21 09:04 Cyanocobalamin (Vit B-12) 1000 Mcg Tab PO 1,000 mcg QDAY CHELLE Administration Enoxaparin Sodium 40 mg 12/28/20 10:00 01/18/21 09:04 Enoxaparin 40 Mg/0.4 Ml Inj SUB-Q 40 mg QDAY CHELLE Administration Folic Acid 1 mg 01/03/21 10:00 01/18/21 09:04 Folic Acid 1 Mg Tab PO 1 mg DAILY CHELLE Administration Hydralazine HCl 5 mg 12/27/20 22:35 12/29/20 12:05 Hydralazine 20 Mg/1 Ml Inj IV 5 mg Q4H PRN Administration Hypertension Hydrochlorothiazide 25 mg 12/29/20 10:00 01/18/21 09:04 Hydrochlorothiazide 25 Mg Tab PO 25 mg QDAY CHELLE Administration Levetiracetam 500 mg 01/02/21 10:00 01/18/21 09:04 Levetiracetam 500 Mg Tab PO 500 mg BID CHELLE Administration Lorazepam 2 mg 12/30/20 11:00 12/30/20 22:21 Lorazepam 2 Mg/Ml Vial IV 2 mg Q1HR PRN Administration CIWA-Ar 8-15 Lorazepam 4 mg 12/30/20 11:00 Lorazepam 2 Mg/Ml Vial IV Q1HR PRN CIWA-Ar 16-25 Magnesium Hydroxide 30 ml 12/27/20 22:21 Magnesium Hydroxide (Mom) Oral Liqd Udc PO Q4H PRN Constipation Multivitamins/Minerals 1 each 01/03/21 10:00 01/18/21 09:04 Multivitamins,Ther W-Minerals Tab PO 1 each QDAY CHELLE Administration Naloxone HCl 0.1 mg 12/27/20 22:21 Naloxone 0.4 Mg/1 Ml Inj IV Q2MIN PRN Res Rate </= 8 or 02 SAT < 92% Ondansetron HCl 4 mg 12/27/20 22:21 Ondansetron 4 Mg/2 Ml Inj IV Q8H PRN Nausea And Vomiting Risperidone 1 mg 12/31/20 22:00 01/18/21 09:04 Risperidone 1 Mg Tab PO 1 mg BID CHELLE Administration Sodium Chloride 10 ml 12/28/20 10:00 01/18/21 09:05 Sodium Chloride 0.9% 10 Ml Flush Syringe IV Not Given BID CHELLE Sodium Chloride 10 ml 12/27/20 22:21 Sodium Chloride 0.9% 10 Ml Flush Syringe IV PRN PRN LINE FLUSH Thiamine HCl 100 mg 01/03/21 10:00 01/18/21 09:04 Thiamine 100 Mg Tab PO 100 mg QDAY CHELLE Administration Valproic Acid 250 mg 01/04/21 13:00 01/18/21 09:04 Valproic Acid 250 Mg/5 Ml Oral Liqd PO 250 mg DAILY CHELLE Administration Nutrition/Malnutrition Assess - Dietary Evaluation Nutrition/Malnutrition Findings: Nutrition Notes Start: 01/03/21 16:36 Freq: Status: Active Protocol: Document 01/17/21 14:09 GB (Rec: 01/17/21 14:17 GB [id number]) Nutrition Notes Initial or Follow up Reassessment Current Diagnosis Hypertension Other Pertinent Diagnosis Acute metabolic encephalopathy , ?EtOH dependence, schizophrenia Current Diet Regular Diet Labs/Tests 01/14: unremarkable Pertinent Medications Vitamin B12, Folic Acid, multivitamins/minerals, Vit B1 Height 6 ft Weight 91.2 kg [place] Body Weight (kg) 80.90 BMI 27.2 Weight change and time frame No new weights in past week since last assessment Weight Status Appropriate Subjective/Other Information Pt awaiting placement. PO intake recorded as 100%. note 01/16: pt cleared for discharge Last BM 01/15 Percent of energy/protein needs met: Likely meeting at least 75% energy and pro needs Burn Absent Trauma Absent GI Symptoms None Food Allergy No Skin Integrity/Comment no complications reported Current % PO Good (75-100%) Minimum of two criteria No #1 Nutrition Diagnosis Unintended weight loss Comments: 01/17: no new weights since last assessment- post one week Etiology AMS As Evidenced by Signs and Symptoms pt with possible wt loss over past week Diagnosis Progress(for reassessment Continues documentation) Is patient on ventilator? No Is Patient Ambulatory and/or Out of Bed No REE-([facility]-confined to bed) 2116.668 Kcal/Kg value to use for calculation 20 Approximate Energy Requirements Using 1824 kcal/Kg Calculation Used for Recommendations [facility] Additional Notes Pro needs 0.8-1g/kg @ 91k -91g/day Fluid needs 1ml/kcal Nutrition Intervention Change Diet Order: Continue current diet order Nutrition Support: n/a Add Supplement/Snack (indicate name/kcal n/a /protein ) Goal #1 PO intake of meals to be 75% or greater daily for LOS Goal #2 Wt to maintain within +/-3% current weight for LOS Follow-Up By: 01/31/21 Additional Comments F/U: intakes, wt
--- NOTE | 2021-01-18 12:21 | Progress Note ---
Subjective - Reason for Consult Consult date: 01/18/21 Reason for consult: AMS - Chief Complaint Chief complaint: The patient was seen today. He is sitting in a chair in his room looking out of the window. He smiles when he sees me. He is calm and cooperative. The patient says he feels "okay." He denies SI/HI or hallucinations of any kind. REVIEW OF SYSTEMS: Unable to assess MENTAL STATUS EXAMINATION: Unable to assess Assessment and Plan (1) encounter for screening examination for mental health and behavioral disorder- Z13.30 Current Visit: Yes Status: Acute Treatment Plan The patient to comply with previously prescribed medications Risks, benefits and alternatives of medications discussed with the patient, questions answered and consent obtained from patient. PSYCHOTHERAPY: Supportive psychotherapy provided MEDICAL: Per primary team DELIRIUM PRECAUTIONS: Please re-orient patient frequently, keep lights on during the day, and minimize benzodiazepines and opiates as these medications could worsen patient's confusion. HAUL DRIVER: Defer to primary DISPOSITION: Do not recommend acute inpatient psychiatric hospitalization at this time. FOLLOW-UP: Will sign off. Thanks Post hospital care: primary care provider, psychiatric provider Case staffed with Dr. Solorzano Mental Status Exam - Vital signs Last Vital Signs Temp 98.0 F 01/18/21 07:52 Pulse 71 01/18/21 07:52 Resp 18 01/18/21 07:52 BP 111/71 01/18/21 07:52 Pulse Ox 97 01/18/21 10:00
--- NOTE | 2021-01-19 08:15 | Progress Note ---
Assessment and Plan Assessment and plan: Patient is medically stable for discharge/pending placement --Acute metabolic ncephalopathy CT of the head and urine drug test-negative MRI of brain ordered unable to do due to lack of consent and patient remains confused Chest x-ray negative for acute finding Neurology evaluated the patient --Febrile illness; resolved in the setting of an encephalopathy on admission ID evaluated the patient, treated with empiric antibiotics, requested LP/MRI, no family available, to give consent Unable to do LP or MRI Patient improved back to baseline --Hyponatremia/resolved -- Hypertension; stable Continue current antihypertensives. -- Possible Seizure disorder Seizure precautions, antiepileptic medications, neurology evaluated, signed off --?ETOH abuse thiamine, folic acid, [id number] --History of schizophrenia Continue psych medications psych consulted --DVT prophylaxis Subcutaneous Lovenox Discharge planning; per case management , possible SNF versus [facility] placement Patient is medically stable for discharge Daily Hospital course: 12/28: Patient now with fever of unknown origin. Still confused discussed with ID will obtain lumbar puncture. 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 MRI is pending. 12/29: Still with low grade fever, continue abx, follow cultures, LP to be done on thursday due to no Radiologist, Neurology input noted. Swallow eval ok, continue diet. start on HCTZ and Norvasc for HTN. No history on patient availab le here yet.] Want CT of the head read as negative during neurologist did review any suspect an acute ischemic stroke starting the patient on aspirin 81 mg daily unfortunately this was not started yesterday not sure why but will start that today. EEG is also ordered for possible subclinical seizures. He refused an ABG. Continue restraints as 12/30: Patient still with confusion, I wonder if he has some etoh issues, will go ahead and start on CIWA protocol in addition to Banana bag. CONTINUE restraints. 12/31: I was able to obtain records from [facility] as patient was recently admitted there on December 20 he was discharged on vitamin B12 1000 mcg daily, ferrous sulfate 325 mg twice a day and Keppra 1000 mg every 12 hours in addition to rest. Do not 1 tablet 2 times a day of 2 mg each. He does have underlying schizophrenia prior history of cocaine abuse and also history of seizure disorder and severe neurocognitive disorder. His court appointed [employer] agent is Grace Padilla phone #[phone]. At the time of his discharge from [place] he was supposed to be placed in a personal custodial as he has a history of wandering. I am not sure if this was done. As he was brought to us "found in the ag[place]". Clinically he is showing some improvement but with the new information will obtain psych consultation. 01/01; could not do the MRI/LP due to his severe agitation And noncooperation, will try MRI study again tomorrow with Ativan 01/02; radiology cannot do lumbar puncture/MRI study due to patient's severe agitation requiring four-point restraints And no family/substation design draftsperson available to consent for the above tests when patie nt is calm and stable 01/03; patient continues to be agitated requiring restraints, noncooperative and unsteady for lumbar punctures and MRI Patient has no family to give consent, case management informed 01/04; patient is more calm, however gets agitated, CM informed me that patient's Michelle Padilla court appointed guardian, will call me To discuss and give consent for the tests and procedures ,waiting for patient's guardian call 01/05; still waiting for patient's guardian Indra Padilla to call and give consent for MRI/LP 01/06: Did not get a call from the patient's guardian Indra Padilla [Case luna gilman stated that patient's guardian will call me ] 01/07; patient's guardian Michelle Padilla did not contact me , CM could not reach her. No consent for LP/MRI Possible placement to [facility]. Discharge planning per case management 01/08: Patient remains restrained, continue to follow clinically. poultry barn manager working on placement 01/09: high risk case manager working on SNF placement, follow clinically, patient remains confused and requiring restraints. Continue empiric antibiotics per ID recommendation. 01/10: Last day of antibiotic today, pending SNF placement 01/11: Completed empiric antibiotics, pending SNF placement, patient remains confused. We will monitor off restrain, continue supportive care 01/12: Pending SNF placement, continue to monitor off restrain, provide supportive care 01/13: continue to monitor off restrain, provide supportive care. ending SNF placement 01/14: pending SNF placement, continue to monitor off restrain, provide supportive care 01/15; pending SNF placement, patient is off restraints, stable 01/16; pending placement, patient is clinically stable for discharge, DC planning per case management 01/17; pending placement SNF vs [facility]ci Medically stable for discharge 01/18/21 Patient medically stable for discharge. I discussed with case management. They are working on SNF placement. 04/21/20 No new complaints. patient medically stable. Awaiting placement. History Interval history: No new complaints Hospitalist Physical - Physical exam Narrative exam: Gen: Not in acute distress HEENT:Normocephalic,atraumatic Neck:supple, No JVD Lungs:clear to auscultation bilaterally, no wheeze Heart:S1 and S2 reg, no murmurs, rubs or gallop Abd:soft, non tender, non distended, normal bowel sounds Ext; No edema, no clubbing, no cyanosis Neuro:Awake,alert, moves all ext, sometims confused - Constitutional Vitals: Temp Pulse Resp BP Pulse Ox 98.1 F 61 18 113/62 97 01/19/21 04:15 01/19/21 04:15 01/19/21 04:15 01/19/21 04:15 01/19/21 04:15 General appearance: Present: no acute distress, well-nourished Results - Labs CBC & Chem 7: 01/14/21 07:27 01/14/21 07:27 Labs: Laboratory Last Values WBC 5.9 K/mm3 (4.5-11.0) 01/14/21 07:27 RBC 5.13 M/mm3 (3.65-5.03) H 01/14/21 07:27 Hgb 12.0 gm/dl (11.8-15.2) 01/14/21 07:27 Hct 36.8 % (35.5-45.6) 01/14/21 07:27 MCV 72 fl (84-94) L 01/14/21 07:27 MCH 23 pg (28-32) L 01/14/21 07:27 MCHC 33 % (32-34) 01/14/21 07:27 RDW 15.8 % (13.2-15.2) H 01/14/21 07:27 Plt Count 294 K/mm3 (140-440) 01/14/21 07:27 Lymph % (Auto) 6.4 % (13.4-35.0) L 12/27/20 17:34 [place] % (Auto) 3.9 % (0.0-7.3) 12/27/20 17:34 Eos % (Auto) 0.2 % (0.0-4.3) 12/27/20 17:34 Baso % (Auto) Commercial Drafter 01/14/21 07:27 Lymph # (Auto) 0.7 K/mm3 (1.2-5.4) L 12/27/20 17:34 [place] # (Auto) 0.4 K/mm3 (0.0-0.8) 12/27/20 17:34 Eos # (Auto) 0.0 K/mm3 (0.0-0.4) 12/27/20 17:34 Baso # (Auto) 0.1 K/mm3 (0.0-0.1) 12/27/20 17:34 Add Manual Diff Complete 01/14/21 07:27 Total Counted 100 01/14/21 07:27 Seg Neutrophils % 89.0 % (40.0-70.0) H 12/27/20 17:34 Seg Neuts % (Manual) 76.0 % (40.0-70.0) H 01/14/21 07:27 Band Neutrophils % 1.0 % 01/14/21 07:27 Lymphocytes % (Manual) 8.0 % (13.4-35.0) L 01/14/21 07:27 Reactive Lymphs % (Man) 1.0 % 01/14/21 07:27 Monocytes % (Manual) 4.0 % (0.0-7.3) 01/14/21 07:27 Eosinophils % (Manual) 1.0 % (0.0-4.3) 01/14/21 07:27 Myelocytes % 9.0 % 01/14/21 07:27 Nucleated RBC % Not Reportable 01/14/21 07:27 Seg Neutrophils # 9.5 K/mm3 (1.8-7.7) H 12/27/20 17:34 Seg Neutrophils # Man 4.5 K/mm3 (1.8-7.7) 01/14/21 07:27 Band Neutrophils # 0.1 K/mm3 01/14/21 07:27 Lymphocytes # (Manual) 0.5 K/mm3 (1.2-5.4) L 01/14/21 07:27 Abs React Lymphs (Man) 0.1 K/mm3 01/14/21 07:27 Monocytes # (Manual) 0.2 K/mm3 (0.0-0.8) 01/14/21 07:27 Eosinophils # (Manual) 0.1 K/mm3 (0.0-0.4) 01/14/21 07:27 Basophils # (Manual) 0.0 K/mm3 (0.0-0.1) 01/14/21 07:27 Metamyelocytes # 0.0 K/mm3 01/14/21 07:27 Myelocytes # 0.5 K/mm3 01/14/21 07:27 Promyelocytes # 0.0 K/mm3 01/14/21 07:27 Blast Cells # 0.0 K/mm3 01/14/21 07:27 WBC Morphology Not Reportable 01/14/21 07:27 Hypersegmented Neuts Not Reportable 01/14/21 07:27 Hyposegmented Neuts Not Reportable 01/14/21 07:27 Hypogranular Neuts Not Reportable 01/14/21 07:27 Smudge Cells Not Reportable 01/14/21 07:27 Toxic Granulation Not Reportable 01/14/21 07:27 Toxic Vacuolation Not Reportable 01/14/21 07:27 Dohle Bodies Not Reportable 01/14/21 07:27 Pelger-Huet Anomaly Not Reportable 01/14/21 07:27 Diana Rods Not Reportable 01/14/21 07:27 Platelet Estimate Consistent w auto 01/14/21 07:27 Clumped Platelets Not Reportable 01/14/21 07:27 Plt Clumps, EDTA Not Reportable 01/14/21 07:27 Large Platelets Not Reportable 01/14/21 07:27 Giant Platelets Not Reportable 01/14/21 07:27 Platelet Satelliting Not Reportable 01/14/21 07:27 Plt Morphology Comment Not Reportable 01/14/21 07:27 RBC Morphology Not Reportable 01/14/21 07:27 Dimorphic RBCs Not Reportable 01/14/21 07:27 Polychromasia Not Reportable 01/14/21 07:27 Hypochromasia Not Reportable 01/14/21 07:27 Poikilocytosis Not Reportable 01/14/21 07:27 Anisocytosis Not Reportable 01/14/21 07:27 Microcytosis Not Reportable 01/14/21 07:27 Macrocytosis Not Reportable 01/14/21 07:27 Spherocytes Not Reportable 01/14/21 07:27 Pappenheimer Bodies Not Reportable 01/14/21 07:27 Sickle Cells Not Reportable 01/14/21 07:27 Target Cells Not Reportable 01/14/21 07:27 Tear Drop Cells Not Reportable 01/14/21 07:27 Ovalocytes Not Reportable 01/14/21 07:27 Helmet Cells Not Reportable 01/14/21 07:27 Solano-Mckay Bodies Not Reportable 01/14/21 07:27 Newton Rings Not Reportable 01/14/21 07:27 Poneto Cells Not Reportable 01/14/21 07:27 Bite Cells Not Reportable 01/14/21 07:27 Crenated Cell Not Reportable 01/14/21 07:27 Elliptocytes Not Reportable 01/14/21 07:27 Acanthocytes (Spur) Not Reportable 01/14/21 07:27 Rouleaux Not Reportable 01/14/21 07:27 Hemoglobin C Crystals Not Reportable 01/14/21 07:27 Schistocytes Not Reportable 01/14/21 07:27 Malaria parasites Not Reportable 01/14/21 07:27 Johnathon Bodies Not Reportable 01/14/21 07:27 Hem Pathologist Commnt No 01/14/21 07:27 Sodium 142 mmol/L (137-145) 01/14/21 07:27 Potassium 4.0 mmol/L (3.6-5.0) 01/14/21 07:27 Chloride 102.9 mmol/L (98-107) 01/14/21 07:27 Carbon Dioxide 29 mmol/L (22-30) 01/14/21 07:27 Anion Gap 14 mmol/L 01/14/21 07:27 BUN 13 mg/dL (9-20) 01/14/21 07:27 Creatinine 0.8 mg/dL (0.8-1.3) 01/14/21 07:27 Estimated GFR > 60 ml/min 01/14/21 07:27 BUN/Creatinine Ratio 16 % 01/14/21 07:27 Glucose 84 mg/dL (75-100) 01/14/21 07:27 POC Glucose 112 mg/dL (70-105) H 12/29/20 00:14 Lactic Acid 1.30 mmol/L (0.7-2.0) 12/28/20 08:13 Calcium 9.5 mg/dL (8.4-10.2) 01/14/21 07:27 Phosphorus 3.70 mg/dL (2.5-4.5) 12/30/20 13:13 Magnesium 2.10 mg/dL (1.7-2.3) 12/30/20 13:13 Total Bilirubin 0.50 mg/dL (0.1-1.2) 12/31/20 05:02 Direct Bilirubin < 0.2 mg/dL (0-0.2) 12/27/20 17:34 Indirect Bilirubin 0.2 mg/dL 12/27/20 17:34 AST 19 units/L (5-40) 12/31/20 05:02 ALT 12 units/L (7-56) 12/31/20 05:02 Alkaline Phosphatase 72 units/L (35-129) 12/31/20 05:02 Ammonia 21.0 umol/L (25-60) L 12/30/20 13:13 Total Protein 7.1 g/dL (6.3-8.2) 12/31/20 05:02 Albumin 3.7 g/dL (3.9-5) L 12/31/20 05:02 Albumin/Globulin Ratio 1.1 % 12/31/20 05:02 Urine Color Straw (Yellow) 12/28/20 02:15 Urine Turbidity Clear (Clear) 12/28/20 02:15 Urine pH 5.0 (5.0-7.0) 12/28/20 02:15 Ur Specific [place] 1.025 (1.003-1.030) 12/28/20 02:15 Urine Protein 100 mg/dl mg/dL (Negative) 12/28/20 02:15 Urine Glucose (UA) Negative mg/dL (Negative) 12/28/20 02:15 Urine Ketones Negative mg/dL (Negative) 12/28/20 02:15 Urine Blood Small (Negative) A 12/28/20 02:15 Urine Nitrite Negative (Negative) 12/28/20 02:15 Ur Reducing Substances Not Reportable 12/28/20 02:15 Urine Bilirubin Negative (Negative) 12/28/20 02:15 Urine Ictotest Not Reportable 12/28/20 02:15 Urine Urobilinogen < 2.0 mg/dL (<2.0) 12/28/20 02:15 Ur Leukocyte Esterase Negative (Negative) 12/28/20 02:15 Urine WBC (Auto) 3.0 /HPF (0.0-6.0) 12/28/20 02:15 Urine RBC (Auto) 4.0 /HPF (0.0-6.0) 12/28/20 02:15 U Epithel Cells (Auto) < 1.0 /HPF (0-13.0) 12/28/20 02:15 Hyaline Casts 1 /LPF 12/28/20 02:15 Granular Casts 1 /LPF 12/28/20 02:15 Urine Mucus Few /HPF 12/28/20 02:15 Salicylates < 0.3 mg/dL (2.8-20.0) L 12/27/20 17:34 Urine Opiates Screen Negative 12/27/20 17:11 Urine Methadone Screen Negative 12/27/20 17:11 Acetaminophen 5.0 ug/mL (10.0-30.0) L 12/27/20 17:34 Ur Barbiturates Screen Negative 12/27/20 17:11 Ur Phencyclidine Scrn Negative 12/27/20 17:11 Ur Amphetamines Screen Negative 12/27/20 17:11 U Benzodiazepines Scrn Negative 12/27/20 17:11 Urine Cocaine Screen Negative 12/27/20 17:11 U Marijuana (THC) Screen Negative 12/27/20 17:11 Drugs of Abuse Note Disclamer 12/27/20 17:11 Plasma/Serum Alcohol < 0.01 % (0-0.07) 12/27/20 17:34 [place]/IV: Voiding Method Toilet Active Medications - Current Medications Current Medications: Generic Name Dose Route Start Last Admin Trade Name Freq PRN Reason Stop Dose Admin Acetaminophen 650 mg 12/27/20 22:21 12/29/20 05:16 Acetaminophen 325 Mg Tab PO 650 mg Q4H PRN Administration Pain MILD(1-3)/Fever >100.5/CARRERA Al Hydrox/Mg Hydrox/Simethicone 30 ml 12/27/20 22:21 Alum-Mag Hydroxide-Simethicone [id number]/5ml Oral Liqd 30 Ml PO Q4H PRN Indigestion Amlodipine Besylate 2.5 mg 12/29/20 10:00 01/18/21 09:04 Amlodipine 5 Mg Tab PO 2.5 mg QDAY CHELLE Administration Aspirin 81 mg 12/29/20 10:00 01/18/21 09:04 Aspirin 81 Mg Tab Chew PO 81 mg QDAY CHELLE Administration Atorvastatin Calcium 40 mg 12/29/20 22:00 01/18/21 21:57 Atorvastatin 40 Mg Tab PO 40 mg QHS CHELLE Administration Cyanocobalamin 1,000 mcg 12/31/20 15:00 01/18/21 09:04 Cyanocobalamin (Vit B-12) 1000 Mcg Tab PO 1,000 mcg QDAY CHELLE Administration Enoxaparin Sodium 40 mg 12/28/20 10:00 01/18/21 09:04 Enoxaparin 40 Mg/0.4 Ml Inj SUB-Q 40 mg QDAY CHELLE Administration Folic Acid 1 mg 01/03/21 10:00 01/18/21 09:04 Folic Acid 1 Mg Tab PO 1 mg DAILY CHELLE Administration Hydralazine HCl 5 mg 12/27/20 22:35 12/29/20 12:05 Hydralazine 20 Mg/1 Ml Inj IV 5 mg Q4H PRN Administration Hypertension Hydrochlorothiazide 25 mg 12/29/20 10:00 01/18/21 09:04 Hydrochlorothiazide 25 Mg Tab PO 25 mg QDAY CHELLE Administration Levetiracetam 500 mg 01/02/21 10:00 01/18/21 21:57 Levetiracetam 500 Mg Tab PO 500 mg BID CHELLE Administration Lorazepam 2 mg 12/30/20 11:00 12/30/20 22:21 Lorazepam 2 Mg/Ml Vial IV 2 mg Q1HR PRN Administration CIWA-Ar 8-15 Lorazepam 4 mg 12/30/20 11:00 Lorazepam 2 Mg/Ml Vial IV Q1HR PRN CIWA-Ar 16-25 Magnesium Hydroxide 30 ml 12/27/20 22:21 Magnesium Hydroxide (Mom) Oral Liqd Udc PO Q4H PRN Constipation Multivitamins/Minerals 1 each 01/03/21 10:00 01/18/21 09:04 Multivitamins,Ther W-Minerals Tab PO 1 each QDAY CHELLE Administration Naloxone HCl 0.1 mg 12/27/20 22:21 Naloxone 0.4 Mg/1 Ml Inj IV Q2MIN PRN Res Rate </= 8 or 02 SAT < 92% Ondansetron HCl 4 mg 12/27/20 22:21 Ondansetron 4 Mg/2 Ml Inj IV Q8H PRN Nausea And Vomiting Risperidone 1 mg 12/31/20 22:00 01/18/21 21:57 Risperidone 1 Mg Tab PO 1 mg BID CHELLE Administration Sodium Chloride 10 ml 12/28/20 10:00 01/18/21 21:57 Sodium Chloride 0.9% 10 Ml Flush Syringe IV Not Given BID CHELLE Sodium Chloride 10 ml 12/27/20 22:21 Sodium Chloride 0.9% 10 Ml Flush Syringe IV PRN PRN LINE FLUSH Thiamine HCl 100 mg 01/03/21 10:00 01/18/21 09:04 Thiamine 100 Mg Tab PO 100 mg QDAY CHELLE Administration Valproic Acid 250 mg 01/04/21 13:00 01/18/21 09:04 Valproic Acid 250 Mg/5 Ml Oral Liqd PO 250 mg DAILY CHELLE Administration Nutrition/Malnutrition Assess - Dietary Evaluation Nutrition/Malnutrition Findings: Nutrition Notes Start: 01/03/21 16:36 Freq: Status: Active Protocol: Document 01/17/21 14:09 GB (Rec: 01/17/21 14:17 GB [email or web address]) Nutrition Notes Initial or Follow up Reassessment Current Diagnosis Hypertension Other Pertinent Diagnosis Acute metabolic encephalopathy , ?EtOH dependence, schizophrenia Current Diet Regular Diet Labs/Tests 01/14: unremarkable Pertinent Medications Vitamin B12, Folic Acid, multivitamins/minerals, Vit B1 Height 6 ft Weight 91.2 kg [place] Body Weight (kg) 80.90 BMI 27.2 Weight change and time frame No new weights in past week since last assessment Weight Status Appropriate Subjective/Other Information Pt awaiting placement. PO intake recorded as 100%. note 01/16: pt cleared for discharge Last BM 01/15 Percent of energy/protein needs met: Likely meeting at least 75% energy and pro needs Burn Absent Trauma Absent GI Symptoms None Food Allergy No Skin Integrity/Comment no complications reported Current % PO Good (75-100%) Minimum of two criteria No #1 Nutrition Diagnosis Unintended weight loss Comments: 01/17: no new weights since last assessment- post one week Etiology AMS As Evidenced by Signs and Symptoms pt with possible wt loss over past week Diagnosis Progress(for reassessment Continues documentation) Is patient on ventilator? No Is Patient Ambulatory and/or Out of Bed No REE-([facility]-confined to bed) 2116.668 Kcal/Kg value to use for calculation 20 Approximate Energy Requirements Using 1824 kcal/Kg Calculation Used for Recommendations [facility] Additional Notes Pro needs 0.8-1g/kg @ 91k -91g/day Fluid needs 1ml/kcal Nutrition Intervention Change Diet Order: Continue current diet order Nutrition Support: n/a Add Supplement/Snack (indicate name/kcal n/a /protein ) Goal #1 PO intake of meals to be 75% or greater daily for LOS Goal #2 Wt to maintain within +/-3% current weight for LOS Follow-Up By: 01/31/21 Additional Comments F/U: intakes, wt
[2021-01-19] MEDS: ASPIRIN 81 MG TAB CHEW PO SCH (10:22)
[2021-01-19] MEDS: levETIRAcetam 500 MG TAB PO SCH ×2 (10:22→21:35)
[2021-01-19] MEDS: amLODIPine 5 MG TAB PO SCH (10:22)
[2021-01-19] MEDS: hydroCHLOROthiazide 25 MG TAB PO SCH (10:22)
[2021-01-19] MEDS: CYANOCOBALAMIN (VIT B-12) 1000 MCG TAB PO SCH (10:22)
[2021-01-19] MEDS: THIAMINE 100 MG TAB PO SCH (10:22)
[2021-01-19] MEDS: VALPROIC ACID 250 MG/5 ML ORAL LIQD PO SCH (10:23)
[2021-01-19] MEDS: risperiDONE 1 MG TAB PO SCH ×2 (10:23→21:36)
[2021-01-19] MEDS: FOLIC ACID 1 MG TAB PO SCH (10:23)
[2021-01-19] MEDS: MULTIVITAMINS,THER W-MINERALS TAB PO SCH (10:23)
[2021-01-19] MEDS: ENOXAPARIN 40 MG/0.4 ML INJ SUB-Q SCH (10:23)
--- NOTE | 2021-01-20 08:54 | Progress Note ---
Assessment and Plan Assessment and plan: Patient is medically stable for discharge/pending placement --Acute metabolic ncephalopathy CT of the head and urine drug test-negative MRI of brain ordered unable to do due to lack of consent and patient remains confused Chest x-ray negative for acute finding Neurology evaluated the patient --Febrile illness; resolved in the setting of an encephalopathy on admission ID evaluated the patient, treated with empiric antibiotics, requested LP/MRI, no family available, to give consent Unable to do LP or MRI Patient improved back to baseline --Hyponatremia/resolved -- Hypertension; stable Continue current antihypertensives. -- Possible Seizure disorder Seizure precautions, antiepileptic medications, neurology evaluated, signed off --?ETOH abuse thiamine, folic acid, [id number] --History of schizophrenia Continue psych medications psych consulted --DVT prophylaxis Subcutaneous Lovenox Discharge planning; per case management , possible SNF versus correction placement Patient is medically stable for discharge Daily Hospital course: 12/28: Patient now with fever of unknown origin. Still confused discussed with ID will obtain lumbar puncture. 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 MRI is pending. 12/29: Still with low grade fever, continue abx, follow cultures, LP to be done on thursday due to no Radiologist, Neurology input noted. Swallow eval ok, continue diet. start on HCTZ and Norvasc for HTN. No history on patient availab le here yet.] Want CT of the head read as negative during neurologist did review any suspect an acute ischemic stroke starting the patient on aspirin 81 mg daily unfortunately this was not started yesterday not sure why but will start that today. EEG is also ordered for possible subclinical seizures. He refused an ABG. Continue restraints as 12/30: Patient still with confusion, I wonder if he has some etoh issues, will go ahead and start on CIWA protocol in addition to Banana bag. CONTINUE restraints. 12/31: I was able to obtain records from [facility] as patient was recently admitted there on December 20 he was discharged on vitamin B12 1000 mcg daily, ferrous sulfate 325 mg twice a day and Keppra 1000 mg every 12 hours in addition to rest. Do not 1 tablet 2 times a day of 2 mg each. He does have underlying schizophrenia prior history of cocaine abuse and also history of seizure disorder and severe neurocognitive disorder. His court appointed [employer] agent is Grace Padilla phone #[phone]. At the time of his discharge from [facility] he was supposed to be placed in a personal fpc as he has a history of wandering. I am not sure if this was done. As he was brought to us "found in the [facility]". Clinically he is showing some improvement but with the new information will obtain psych consultation. 01/01; could not do the MRI/LP due to his severe agitation And noncooperation, will try MRI study again tomorrow with Ativan 01/02; radiology cannot do lumbar puncture/MRI study due to patient's severe agitation requiring four-point restraints And no family/call or contact centre manager available to consent for the above tests when patie nt is calm and stable 01/03; patient continues to be agitated requiring restraints, noncooperative and unsteady for lumbar punctures and MRI Patient has no family to give consent, case management informed 01/04; patient is more calm, however gets agitated, CM informed me that patient's Michelle Padilla court appointed guardian, will call me To discuss and give consent for the tests and procedures ,waiting for patient's guardian call 01/05; still waiting for patient's guardian Indra Padilla to call and give consent for MRI/LP 01/06: Did not get a call from the patient's guardian Indra Padilla [Case luna gilman stated that patient's guardian will call me ] 01/07; patient's guardian Michelle Padilla did not contact me , CM could not reach her. No consent for LP/MRI Possible placement to [facility]. Discharge planning per case management 01/08: Patient remains restrained, continue to follow clinically. assembly manager working on placement 01/09: medical case worker working on SNF placement, follow clinically, patient remains confused and requiring restraints. Continue empiric antibiotics per ID recommendation. 01/10: Last day of antibiotic today, pending SNF placement 01/11: Completed empiric antibiotics, pending SNF placement, patient remains confused. We will monitor off restrain, continue supportive care 01/12: Pending SNF placement, continue to monitor off restrain, provide supportive care 01/13: continue to monitor off restrain, provide supportive care. ending SNF placement 01/14: pending SNF placement, continue to monitor off restrain, provide supportive care 01/15; pending SNF placement, patient is off restraints, stable 01/16; pending placement, patient is clinically stable for discharge, DC planning per case management 01/17; pending placement SNF vs correction Medically stable for discharge 01/18/21 Patient medically stable for discharge. I discussed with case management. They are working on SNF placement. 01/19/21 No new complaints. patient medically stable. Awaiting placement. 01/20/21 Patient medically stable for discharge. Awaiting placement. History Interval history: No new complaints Hospitalist Physical - Physical exam Narrative exam: Gen: Not in acute distress HEENT:Normocephalic,atraumatic Neck:supple, No JVD Lungs:clear to auscultation bilaterally, no wheeze Heart:S1 and S2 reg, no murmurs, rubs or gallop Abd:soft, non tender, non distended, normal bowel sounds Ext; No edema, no clubbing, no cyanosis Neuro:Awake,alert, moves all ext, sometimes confused - Constitutional Vitals: Temp Pulse Resp BP Pulse Ox 97.7 F 75 18 104/70 98 01/20/21 04:32 01/20/21 04:32 01/20/21 04:32 01/20/21 04:32 01/20/21 07:45 General appearance: Present: no acute distress, well-nourished Results - Labs CBC & Chem 7: 01/14/21 07:27 01/14/21 07:27 Labs: Laboratory Last Values WBC 5.9 K/mm3 (4.5-11.0) 01/14/21 07:27 RBC 5.13 M/mm3 (3.65-5.03) H 01/14/21 07:27 Hgb 12.0 gm/dl (11.8-15.2) 01/14/21 07:27 Hct 36.8 % (35.5-45.6) 01/14/21 07:27 MCV 72 fl (84-94) L 01/14/21 07:27 MCH 23 pg (28-32) L 01/14/21 07:27 MCHC 33 % (32-34) 01/14/21 07:27 RDW 15.8 % (13.2-15.2) H 01/14/21 07:27 Plt Count 294 K/mm3 (140-440) 01/14/21 07:27 Lymph % (Auto) 6.4 % (13.4-35.0) L 12/27/20 17:34 [place] % (Auto) 3.9 % (0.0-7.3) 12/27/20 17:34 Eos % (Auto) 0.2 % (0.0-4.3) 12/27/20 17:34 Baso % (Auto) Glass Block Installer 01/14/21 07:27 Lymph # (Auto) 0.7 K/mm3 (1.2-5.4) L 12/27/20 17:34 [place] # (Auto) 0.4 K/mm3 (0.0-0.8) 12/27/20 17:34 Eos # (Auto) 0.0 K/mm3 (0.0-0.4) 12/27/20 17:34 Baso # (Auto) 0.1 K/mm3 (0.0-0.1) 12/27/20 17:34 Add Manual Diff Complete 01/14/21 07:27 Total Counted 100 01/14/21 07:27 Seg Neutrophils % 89.0 % (40.0-70.0) H 12/27/20 17:34 Seg Neuts % (Manual) 76.0 % (40.0-70.0) H 01/14/21 07:27 Band Neutrophils % 1.0 % 01/14/21 07:27 Lymphocytes % (Manual) 8.0 % (13.4-35.0) L 01/14/21 07:27 Reactive Lymphs % (Man) 1.0 % 01/14/21 07:27 Monocytes % (Manual) 4.0 % (0.0-7.3) 01/14/21 07:27 Eosinophils % (Manual) 1.0 % (0.0-4.3) 01/14/21 07:27 Myelocytes % 9.0 % 01/14/21 07:27 Nucleated RBC % Not Reportable 01/14/21 07:27 Seg Neutrophils # 9.5 K/mm3 (1.8-7.7) H 12/27/20 17:34 Seg Neutrophils # Man 4.5 K/mm3 (1.8-7.7) 01/14/21 07:27 Band Neutrophils # 0.1 K/mm3 01/14/21 07:27 Lymphocytes # (Manual) 0.5 K/mm3 (1.2-5.4) L 01/14/21 07:27 Abs React Lymphs (Man) 0.1 K/mm3 01/14/21 07:27 Monocytes # (Manual) 0.2 K/mm3 (0.0-0.8) 01/14/21 07:27 Eosinophils # (Manual) 0.1 K/mm3 (0.0-0.4) 01/14/21 07:27 Basophils # (Manual) 0.0 K/mm3 (0.0-0.1) 01/14/21 07:27 Metamyelocytes # 0.0 K/mm3 01/14/21 07:27 Myelocytes # 0.5 K/mm3 01/14/21 07:27 Promyelocytes # 0.0 K/mm3 01/14/21 07:27 Blast Cells # 0.0 K/mm3 01/14/21 07:27 WBC Morphology Not Reportable 01/14/21 07:27 Hypersegmented Neuts Not Reportable 01/14/21 07:27 Hyposegmented Neuts Not Reportable 01/14/21 07:27 Hypogranular Neuts Not Reportable 01/14/21 07:27 Smudge Cells Not Reportable 01/14/21 07:27 Toxic Granulation Not Reportable 01/14/21 07:27 Toxic Vacuolation Not Reportable 01/14/21 07:27 Dohle Bodies Not Reportable 01/14/21 07:27 Pelger-Huet Anomaly Not Reportable 01/14/21 07:27 Diana Rods Not Reportable 01/14/21 07:27 Platelet Estimate Consistent w auto 01/14/21 07:27 Clumped Platelets Not Reportable 01/14/21 07:27 Plt Clumps, EDTA Not Reportable 01/14/21 07:27 Large Platelets Not Reportable 01/14/21 07:27 Giant Platelets Not Reportable 01/14/21 07:27 Platelet Satelliting Not Reportable 01/14/21 07:27 Plt Morphology Comment Not Reportable 01/14/21 07:27 RBC Morphology Not Reportable 01/14/21 07:27 Dimorphic RBCs Not Reportable 01/14/21 07:27 Polychromasia Not Reportable 01/14/21 07:27 Hypochromasia Not Reportable 01/14/21 07:27 Poikilocytosis Not Reportable 01/14/21 07:27 Anisocytosis Not Reportable 01/14/21 07:27 Microcytosis Not Reportable 01/14/21 07:27 Macrocytosis Not Reportable 01/14/21 07:27 Spherocytes Not Reportable 01/14/21 07:27 Pappenheimer Bodies Not Reportable 01/14/21 07:27 Sickle Cells Not Reportable 01/14/21 07:27 Target Cells Not Reportable 01/14/21 07:27 Tear Drop Cells Not Reportable 01/14/21 07:27 Ovalocytes Not Reportable 01/14/21 07:27 Helmet Cells Not Reportable 01/14/21 07:27 Sol[place] Bodies Not Reportable 01/14/21 07:27 Viola Rings Not Reportable 01/14/21 07:27 Woodson Cells Not Reportable 01/14/21 07:27 Bite Cells Not Reportable 01/14/21 07:27 Crenated Cell Not Reportable 01/14/21 07:27 Elliptocytes Not Reportable 01/14/21 07:27 Acanthocytes (Spur) Not Reportable 01/14/21 07:27 Rouleaux Not Reportable 01/14/21 07:27 Hemoglobin C Crystals Not Reportable 01/14/21 07:27 Schistocytes Not Reportable 01/14/21 07:27 Malaria parasites Not Reportable 01/14/21 07:27 Johnathon Bodies Not Reportable 01/14/21 07:27 Hem Pathologist Commnt No 01/14/21 07:27 Sodium 142 mmol/L (137-145) 01/14/21 07:27 Potassium 4.0 mmol/L (3.6-5.0) 01/14/21 07:27 Chloride 102.9 mmol/L (98-107) 01/14/21 07:27 Carbon Dioxide 29 mmol/L (22-30) 01/14/21 07:27 Anion Gap 14 mmol/L 01/14/21 07:27 BUN 13 mg/dL (9-20) 01/14/21 07:27 Creatinine 0.8 mg/dL (0.8-1.3) 01/14/21 07:27 Estimated GFR > 60 ml/min 01/14/21 07:27 BUN/Creatinine Ratio 16 % 10/18/21 07:27 Glucose 84 mg/dL (75-100) 01/14/21 07:27 POC Glucose 112 mg/dL (70-105) H 12/29/20 00:14 Lactic Acid 1.30 mmol/L (0.7-2.0) 12/28/20 08:13 Calcium 9.5 mg/dL (8.4-10.2) 01/14/21 07:27 Phosphorus 3.70 mg/dL (2.5-4.5) 12/30/20 13:13 Magnesium 2.10 mg/dL (1.7-2.3) 12/30/20 13:13 Total Bilirubin 0.50 mg/dL (0.1-1.2) 12/31/20 05:02 Direct Bilirubin < 0.2 mg/dL (0-0.2) 12/27/20 17:34 Indirect Bilirubin 0.2 mg/dL 12/27/20 17:34 AST 19 units/L (5-40) 12/31/20 05:02 ALT 12 units/L (7-56) 12/31/20 05:02 Alkaline Phosphatase 72 units/L (35-129) 12/31/20 05:02 Ammonia 21.0 umol/L (25-60) L 12/30/20 13:13 Total Protein 7.1 g/dL (6.3-8.2) 12/31/20 05:02 Albumin 3.7 g/dL (3.9-5) L 12/31/20 05:02 Albumin/Globulin Ratio 1.1 % 12/31/20 05:02 Urine Color Straw (Yellow) 12/28/20 02:15 Urine Turbidity Clear (Clear) 12/28/20 02:15 Urine pH 5.0 (5.0-7.0) 12/28/20 02:15 Ur Specific [place] 1.025 (1.003-1.030) 12/28/20 02:15 Urine Protein 100 mg/dl mg/dL (Negative) 12/28/20 02:15 Urine Glucose (UA) Negative mg/dL (Negative) 12/28/20 02:15 Urine Ketones Negative mg/dL (Negative) 12/28/20 02:15 Urine Blood Small (Negative) A 12/28/20 02:15 Urine Nitrite Negative (Negative) 12/28/20 02:15 Ur Reducing Substances Not Reportable 12/28/20 02:15 Urine Bilirubin Negative (Negative) 12/28/20 02:15 Urine Ictotest Not Reportable 12/28/20 02:15 Urine Urobilinogen < 2.0 mg/dL (<2.0) 12/28/20 02:15 Ur Leukocyte Esterase Negative (Negative) 12/28/20 02:15 Urine WBC (Auto) 3.0 /HPF (0.0-6.0) 12/28/20 02:15 Urine RBC (Auto) 4.0 /HPF (0.0-6.0) 12/28/20 02:15 U Epithel Cells (Auto) < 1.0 /HPF (0-13.0) 12/28/20 02:15 Hyaline Casts 1 /LPF 12/28/20 02:15 Granular Casts 1 /LPF 12/28/20 02:15 Urine Mucus Few /HPF 12/28/20 02:15 Salicylates < 0.3 mg/dL (2.8-20.0) L 12/27/20 17:34 Urine Opiates Screen Negative 12/27/20 17:11 Urine Methadone Screen Negative 12/27/20 17:11 Acetaminophen 5.0 ug/mL (10.0-30.0) L 12/27/20 17:34 Ur Barbiturates Screen Negative 12/27/20 17:11 Ur Phencyclidine Scrn Negative 12/27/20 17:11 Ur Amphetamines Screen Negative 12/27/20 17:11 U Benzodiazepines Scrn Negative 12/27/20 17:11 Urine Cocaine Screen Negative 12/27/20 17:11 U Marijuana (THC) Screen Negative 12/27/20 17:11 Drugs of Abuse Note Disclamer 12/27/20 17:11 Plasma/Serum Alcohol < 0.01 % (0-0.07) 12/27/20 17:34 [place]/IV: Voiding Method Toilet Active Medications - Current Medications Current Medications: Generic Name Dose Route Start Last Admin Trade Name Freq PRN Reason Stop Dose Admin Acetaminophen 650 mg 12/27/20 22:21 12/29/20 05:16 Acetaminophen 325 Mg Tab PO 650 mg Q4H PRN Administration Pain MILD(1-3)/Fever >100.5/CARRERA Al Hydrox/Mg Hydrox/Simethicone 30 ml 12/27/20 22:21 Alum-Mag Hydroxide-Simethicone 033-739-12zc/5ml Oral Liqd 30 Ml PO Q4H PRN Indigestion Amlodipine Besylate 2.5 mg 12/29/20 10:00 01/19/21 10:22 Amlodipine 5 Mg Tab PO 2.5 mg QDAY CHELLE Administration Aspirin 81 mg 12/29/20 10:00 01/19/21 10:22 Aspirin 81 Mg Tab Chew PO 81 mg QDAY CHELLE Administration Atorvastatin Calcium 40 mg 12/29/20 22:00 01/19/21 21:36 Atorvastatin 40 Mg Tab PO 40 mg QHS CHELLE Administration Cyanocobalamin 1,000 mcg 12/31/20 15:00 01/19/21 10:22 Cyanocobalamin (Vit B-12) 1000 Mcg Tab PO 1,000 mcg QDAY CHELLE Administration Enoxaparin Sodium 40 mg 12/28/20 10:00 01/19/21 10:23 Enoxaparin 40 Mg/0.4 Ml Inj SUB-Q 40 mg QDAY CHELLE Administration Folic Acid 1 mg 01/03/21 10:00 01/19/21 10:23 Folic Acid 1 Mg Tab PO 1 mg DAILY CHELLE Administration Hydralazine HCl 5 mg 12/27/20 22:35 12/29/20 12:05 Hydralazine 20 Mg/1 Ml Inj IV 5 mg Q4H PRN Administration Hypertension Hydrochlorothiazide 25 mg 12/29/20 10:00 01/19/21 10:22 Hydrochlorothiazide 25 Mg Tab PO 25 mg QDAY CHELLE Administration Levetiracetam 500 mg 01/02/21 10:00 01/19/21 21:35 Levetiracetam 500 Mg Tab PO 500 mg BID CHELLE Administration Lorazepam 2 mg 12/30/20 11:00 12/30/20 22:21 Lorazepam 2 Mg/Ml Vial IV 2 mg Q1HR PRN Administration CIWA-Ar 8-15 Lorazepam 4 mg 12/30/20 11:00 Lorazepam 2 Mg/Ml Vial IV Q1HR PRN CIWA-Ar 16-25 Magnesium Hydroxide 30 ml 12/27/20 22:21 Magnesium Hydroxide (Mom) Oral Liqd Udc PO Q4H PRN Constipation Multivitamins/Minerals 1 each 01/03/21 10:00 01/19/21 10:23 Multivitamins,Ther W-Minerals Tab PO 1 each QDAY CHELLE Administration Naloxone HCl 0.1 mg 12/27/20 22:21 Naloxone 0.4 Mg/1 Ml Inj IV Q2MIN PRN Res Rate </= 8 or 02 SAT < 92% Ondansetron HCl 4 mg 12/27/20 22:21 Ondansetron 4 Mg/2 Ml Inj IV Q8H PRN Nausea And Vomiting Risperidone 1 mg 12/31/20 22:00 01/19/21 21:36 Risperidone 1 Mg Tab PO 1 mg BID CHELLE Administration Sodium Chloride 10 ml 12/28/20 10:00 01/19/21 21:36 Sodium Chloride 0.9% 10 Ml Flush Syringe IV Not Given BID CHELLE Sodium Chloride 10 ml 12/27/20 22:21 Sodium Chloride 0.9% 10 Ml Flush Syringe IV PRN PRN LINE FLUSH Thiamine HCl 100 mg 01/03/21 10:00 01/19/21 10:22 Thiamine 100 Mg Tab PO 100 mg QDAY CHELLE Administration Valproic Acid 250 mg 01/04/21 13:00 01/19/21 10:23 Valproic Acid 250 Mg/5 Ml Oral Liqd PO 250 mg DAILY CHELLE Administration Nutrition/Malnutrition Assess - Dietary Evaluation Nutrition/Malnutrition Findings: Nutrition Notes Start: 01/03/21 16:36 Freq: Status: Active Protocol: Document 01/17/21 14:09 GB (Rec: 01/17/21 14:17 GB [id number]) Nutrition Notes Initial or Follow up Reassessment Current Diagnosis Hypertension Other Pertinent Diagnosis Acute metabolic encephalopathy , ?EtOH dependence, schizophrenia Current Diet Regular Diet Labs/Tests 01/14: unremarkable Pertinent Medications Vitamin B12, Folic Acid, multivitamins/minerals, Vit B1 Height 6 ft Weight 91.2 kg [place] Body Weight (kg) 80.90 BMI 27.2 Weight change and time frame No new weights in past week since last assessment Weight Status Appropriate Subjective/Other Information Pt awaiting placement. PO intake recorded as 100%. note 01/16: pt cleared for discharge Last BM 01/15 Percent of energy/protein needs met: Likely meeting at least 75% energy and pro needs Burn Absent Trauma Absent GI Symptoms None Food Allergy No Skin Integrity/Comment no complications reported Current % PO Good (75-100%) Minimum of two criteria No #1 Nutrition Diagnosis Unintended weight loss Comments: 01/17: no new weights since last assessment- post one week Etiology AMS As Evidenced by Signs and Symptoms pt with possible wt loss over past week Diagnosis Progress(for reassessment Continues documentation) Is patient on ventilator? No Is Patient Ambulatory and/or Out of Bed No REE-([facility]-confined to bed) 2116.668 Kcal/Kg value to use for calculation 20 Approximate Energy Requirements Using 1824 kcal/Kg Calculation Used for Recommendations [facility] Additional Notes Pro needs 0.8-1g/kg @ 91k -91g/day Fluid needs 1ml/kcal Nutrition Intervention Change Diet Order: Continue current diet order Nutrition Support: n/a Add Supplement/Snack (indicate name/kcal n/a /protein ) Goal #1 PO intake of meals to be 75% or greater daily for LOS Goal #2 Wt to maintain within +/-3% current weight for LOS Follow-Up By: 01/31/21 Additional Comments F/U: intakes, wt
[2021-01-20] MEDS: VALPROIC ACID 250 MG/5 ML ORAL LIQD PO SCH (11:48)
[2021-01-20] MEDS: FOLIC ACID 1 MG TAB PO SCH (11:48)
[2021-01-20] MEDS: hydroCHLOROthiazide 25 MG TAB PO SCH (11:48)
[2021-01-20] MEDS: THIAMINE 100 MG TAB PO SCH (11:48)
[2021-01-20] MEDS: MULTIVITAMINS,THER W-MINERALS TAB PO SCH (11:48)
[2021-01-20] MEDS: ASPIRIN 81 MG TAB CHEW PO SCH (11:48)
[2021-01-20] MEDS: amLODIPine 5 MG TAB PO SCH (11:48)
[2021-01-20] MEDS: levETIRAcetam 500 MG TAB PO SCH ×2 (11:48→21:48)
[2021-01-20] MEDS: CYANOCOBALAMIN (VIT B-12) 1000 MCG TAB PO SCH (11:48)
[2021-01-20] MEDS: ENOXAPARIN 40 MG/0.4 ML INJ SUB-Q SCH (11:49)
[2021-01-20] MEDS: risperiDONE 1 MG TAB PO SCH ×2 (11:49→21:48)
--- NOTE | 2021-01-21 09:18 | Progress Note ---
Assessment and Plan Assessment and plan: Patient is medically stable for discharge/pending placement --Acute metabolic encephalopathy CT of the head and urine drug test-negative MRI of brain ordered unable to do due to lack of consent and patient remains confused Chest x-ray negative for acute finding Neurology evaluated the patient --Febrile illness; resolved in the setting of an encephalopathy on admission ID evaluated the patient, treated with empiric antibiotics, requested LP/MRI, no family available, to give consent Unable to do LP or MRI Patient improved back to baseline --Hyponatremia/resolved -- Hypertension; stable Continue current antihypertensives. -- Possible Seizure disorder Seizure precautions, antiepileptic medications, neurology evaluated, signed off --?ETOH abuse thiamine, folic acid, [id number] --History of schizophrenia Continue psych medications psych consulted --DVT prophylaxis Subcutaneous Lovenox Discharge planning; per case management , possible SNF versus custodial placement Patient is medically stable for discharge Daily Hospital course: 12/28: Patient now with fever of unknown origin. Still confused discussed with ID will obtain lumbar puncture. 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 MRI is pending. 12/29: Still with low grade fever, continue abx, follow cultures, LP to be done on thursday due to no Radiologist, Neurology input noted. Swallow eval ok, continue diet. start on HCTZ and Norvasc for HTN. No history on patient availa ble here yet.] Want CT of the head read as negative during neurologist did review any suspect an acute ischemic stroke starting the patient on aspirin 81 mg daily unfortunately this was not started yesterday not sure why but will start that today. EEG is also ordered for possible subclinical seizures. He refused an ABG. Continue restraints as 12/30: Patient still with confusion, I wonder if he has some etoh issues, will go ahead and start on CIWA protocol in addition to Banana bag. CONTINUE restraints. 12/31: I was able to obtain records from [facility] as patient was recently admitted there on December 20 he was discharged on vitamin B12 1000 mcg daily, ferrous sulfate 325 mg twice a day and Keppra 1000 mg every 12 hours in addition to rest. Do not 1 tablet 2 times a day of 2 mg each. He does have underlying schizophrenia prior history of cocaine abuse and also history of seizure disorder and severe neurocognitive disorder. His court appointed [employer] agent is Grace Padilla phone #[phone]. At the time of his discharge from [facility] he was supposed to be placed in a personal long-term as he has a history of wandering. I am not sure if this was done. As he was brought to us "found in the aguirre". Clinically he is showing some improvement but with the new information will obtain psych consultation. 01/01; could not do the MRI/LP due to his severe agitation And noncooperation, will try MRI study again tomorrow with Ativan 01/02; radiology cannot do lumbar puncture/MRI study due to patient's severe agitation requiring four-point restraints And no family/retail personal banker available to consent for the above tests when sang ent is calm and stable 01/03; patient continues to be agitated requiring restraints, noncooperative and unsteady for lumbar punctures and MRI Patient has no family to give consent, case management informed 01/04; patient is more calm, however gets agitated, CM informed me that patient's Michelle Padilla court appointed guardian, will call me To discuss and give consent for the tests and procedures ,waiting for patient's guardian call 01/05; still waiting for patient's guardian Indra Padilla to call and give consent for MRI/LP 01/06: Did not get a call from the patient's guardian Indra Padilla [Case management stated that patient's guardian will call me ] 01/07; patient's guardian Michelle Padilla did not contact me , CM could not reach her. No consent for LP/MRI Possible placement to [facility]. Discharge planning per case management 01/08: Patient remains restrained, continue to follow clinically. associate account manager working on placement 01/09: assistant case manager working on SNF placement, follow clinically, patient remains confused and requiring restraints. Continue empiric antibiotics per ID recommendation. 01/10: Last day of antibiotic today, pending SNF placement 01/11: Completed empiric antibiotics, pending SNF placement, patient remains confused. We will monitor off restrain, continue supportive care 01/12: Pending SNF placement, continue to monitor off restrain, provide supportive care 01/13: continue to monitor off restrain, provide supportive care. ending SNF placement 01/14: pending SNF placement, continue to monitor off restrain, provide supportive care 01/15; pending SNF placement, patient is off restraints, stable 01/16; pending placement, patient is clinically stable for discharge, DC planning per case management 01/17; pending placement SNF vs custodial Medically stable for discharge 01/18/21 Patient medically stable for discharge. I discussed with case management. They are working on SNF placement. 01/19/21 No new complaints. patient medically stable. Awaiting placement. 01/20/21 Patient medically stable for discharge. Awaiting placement. 01/21/21 Patient with metabolic encephalopathy, hypertension, schizophrenia. He is medically stable for discharge. Awaiting plaqcement. History Interval history: No new complaints Hospitalist Physical - Physical exam Narrative exam: Gen: Not in acute distress HEENT:Normocephalic,atraumatic Neck:supple, No JVD Lungs:clear to auscultation bilaterally, no wheeze Heart:S1 and S2 reg, no murmurs, rubs or gallop Abd:soft, non tender, non distended, normal bowel sounds Ext; No edema, no clubbing, no cyanosis Neuro:Awake,alert, moves all ext, sometimes confused - Constitutional Vitals: Temp Pulse Resp BP Pulse Ox 98.5 F 57 L 18 107/58 95 01/21/21 08:07 01/21/21 08:07 01/21/21 08:07 01/21/21 08:07 01/21/21 08:07 General appearance: Present: no acute distress, well-nourished Results - Labs CBC & Chem 7: 01/14/21 07:27 01/14/21 07:27 Labs: Laboratory Last Values WBC 5.9 K/mm3 (4.5-11.0) 01/14/21 07:27 RBC 5.13 M/mm3 (3.65-5.03) H 01/14/21 07:27 Hgb 12.0 gm/dl (11.8-15.2) 01/14/21 07:27 Hct 36.8 % (35.5-45.6) 01/14/21 07:27 MCV 72 fl (84-94) L 01/14/21 07:27 MCH 23 pg (28-32) L 01/14/21 07:27 MCHC 33 % (32-34) 01/14/21 07:27 RDW 15.8 % (13.2-15.2) H 01/14/21 07:27 Plt Count 294 K/mm3 (140-440) 01/14/21 07:27 Lymph % (Auto) 6.4 % (13.4-35.0) L 12/27/20 17:34 [place] % (Auto) 3.9 % (0.0-7.3) 12/27/20 17:34 Eos % (Auto) 0.2 % (0.0-4.3) 12/27/20 17:34 Baso % (Auto) [employer] 01/14/21 07:27 Lymph # (Auto) 0.7 K/mm3 (1.2-5.4) L 12/27/20 17:34 [place] # (Auto) 0.4 K/mm3 (0.0-0.8) 12/27/20 17:34 Eos # (Auto) 0.0 K/mm3 (0.0-0.4) 12/27/20 17:34 Baso # (Auto) 0.1 K/mm3 (0.0-0.1) 12/27/20 17:34 Add Manual Diff Complete 01/14/21 07:27 Total Counted 100 01/14/21 07:27 Seg Neutrophils % 89.0 % (40.0-70.0) H 12/27/20 17:34 Seg Neuts % (Manual) 76.0 % (40.0-70.0) H 01/14/21 07:27 Band Neutrophils % 1.0 % 01/14/21 07:27 Lymphocytes % (Manual) 8.0 % (13.4-35.0) L 01/14/21 07:27 Reactive Lymphs % (Man) 1.0 % 01/14/21 07:27 Monocytes % (Manual) 4.0 % (0.0-7.3) 01/14/21 07:27 Eosinophils % (Manual) 1.0 % (0.0-4.3) 01/14/21 07:27 Myelocytes % 9.0 % 01/14/21 07:27 Nucleated RBC % Not Reportable 01/14/21 07:27 Seg Neutrophils # 9.5 K/mm3 (1.8-7.7) H 12/27/20 17:34 Seg Neutrophils # Man 4.5 K/mm3 (1.8-7.7) 01/14/21 07:27 Band Neutrophils # 0.1 K/mm3 01/14/21 07:27 Lymphocytes # (Manual) 0.5 K/mm3 (1.2-5.4) L 01/14/21 07:27 Abs React Lymphs (Man) 0.1 K/mm3 01/14/21 07:27 Monocytes # (Manual) 0.2 K/mm3 (0.0-0.8) 01/14/21 07:27 Eosinophils # (Manual) 0.1 K/mm3 (0.0-0.4) 01/14/21 07:27 Basophils # (Manual) 0.0 K/mm3 (0.0-0.1) 01/14/21 07:27 Metamyelocytes # 0.0 K/mm3 01/14/21 07:27 Myelocytes # 0.5 K/mm3 01/14/21 07:27 Promyelocytes # 0.0 K/mm3 01/14/21 07:27 Blast Cells # 0.0 K/mm3 01/14/21 07:27 WBC Morphology Not Reportable 01/14/21 07:27 Hypersegmented Neuts Not Reportable 01/14/21 07:27 Hyposegmented Neuts Not Reportable 01/14/21 07:27 Hypogranular Neuts Not Reportable 01/14/21 07:27 Smudge Cells Not Reportable 01/14/21 07:27 Toxic Granulation Not Reportable 01/14/21 07:27 Toxic Vacuolation Not Reportable 01/14/21 07:27 Dohle Bodies Not Reportable 01/14/21 07:27 Pelger-Huet Anomaly Not Reportable 01/14/21 07:27 Diana Rods Not Reportable 01/14/21 07:27 Platelet Estimate Consistent w auto 01/14/21 07:27 Clumped Platelets Not Reportable 01/14/21 07:27 Plt Clumps, EDTA Not Reportable 01/14/21 07:27 Large Platelets Not Reportable 01/14/21 07:27 Giant Platelets Not Reportable 01/14/21 07:27 Platelet Satelliting Not Reportable 01/14/21 07:27 Plt Morphology Comment Not Reportable 01/14/21 07:27 RBC Morphology Not Reportable 01/14/21 07:27 Dimorphic RBCs Not Reportable 01/14/21 07:27 Polychromasia Not Reportable 01/14/21 07:27 Hypochromasia Not Reportable 01/14/21 07:27 Poikilocytosis Not Reportable 01/14/21 07:27 Anisocytosis Not Reportable 01/14/21 07:27 Microcytosis Not Reportable 01/14/21 07:27 Macrocytosis Not Reportable 01/14/21 07:27 Spherocytes Not Reportable 01/14/21 07:27 Pappenheimer Bodies Not Reportable 01/14/21 07:27 Sickle Cells Not Reportable 01/14/21 07:27 Target Cells Not Reportable 01/14/21 07:27 Tear Drop Cells Not Reportable 01/14/21 07:27 Ovalocytes Not Reportable 01/14/21 07:27 Helmet Cells Not Reportable 01/14/21 07:27 [place] Bodies Not Reportable 01/14/21 07:27 [place] Rings Not Reportable 01/14/21 07:27 [place] Cells Not Reportable 01/14/21 07:27 Bite Cells Not Reportable 01/14/21 07:27 Crenated Cell Not Reportable 01/14/21 07:27 Elliptocytes Not Reportable 01/14/21 07:27 Acanthocytes (Spur) Not Reportable 01/14/21 07:27 Rouleaux Not Reportable 01/14/21 07:27 Hemoglobin C Crystals Not Reportable 01/14/21 07:27 Schistocytes Not Reportable 01/14/21 07:27 Malaria parasites Not Reportable 01/14/21 07:27 [place] Bodies Not Reportable 01/14/21 07:27 Hem Pathologist Commnt No 01/14/21 07:27 Sodium 142 mmol/L (137-145) 01/14/21 07:27 Potassium 4.0 mmol/L (3.6-5.0) 01/14/21 07:27 Chloride 102.9 mmol/L (98-107) 01/14/21 07:27 Carbon Dioxide 29 mmol/L (22-30) 01/14/21 07:27 Anion Gap 14 mmol/L 01/14/21 07:27 BUN 13 mg/dL (9-20) 01/14/21 07:27 Creatinine 0.8 mg/dL (0.8-1.3) 01/14/21 07:27 Estimated GFR > 60 ml/min 01/14/21 07:27 BUN/Creatinine Ratio 16 % 01/14/21 07:27 Glucose 84 mg/dL (75-100) 01/14/21 07:27 POC Glucose 112 mg/dL (70-105) H 12/29/20 00:14 Lactic Acid 1.30 mmol/L (0.7-2.0) 12/28/20 08:13 Calcium 9.5 mg/dL (8.4-10.2) 01/14/21 07:27 Phosphorus 3.70 mg/dL (2.5-4.5) 12/30/20 13:13 Magnesium 2.10 mg/dL (1.7-2.3) 12/30/20 13:13 Total Bilirubin 0.50 mg/dL (0.1-1.2) 12/31/20 05:02 Direct Bilirubin < 0.2 mg/dL (0-0.2) 12/27/20 17:34 Indirect Bilirubin 0.2 mg/dL 12/27/20 17:34 AST 19 units/L (5-40) 12/31/20 05:02 ALT 12 units/L (7-56) 12/31/20 05:02 Alkaline Phosphatase 72 units/L (35-129) 12/31/20 05:02 Ammonia 21.0 umol/L (25-60) L 12/30/20 13:13 Total Protein 7.1 g/dL (6.3-8.2) 12/31/20 05:02 Albumin 3.7 g/dL (3.9-5) L 12/31/20 05:02 Albumin/Globulin Ratio 1.1 % 12/31/20 05:02 Urine Color Straw (Yellow) 12/28/20 02:15 Urine Turbidity Clear (Clear) 12/28/20 02:15 Urine pH 5.0 (5.0-7.0) 12/28/20 02:15 Ur Specific [place] 1.025 (1.003-1.030) 12/28/20 02:15 Urine Protein 100 mg/dl mg/dL (Negative) 12/28/20 02:15 Urine Glucose (UA) Negative mg/dL (Negative) 12/28/20 02:15 Urine Ketones Negative mg/dL (Negative) 12/28/20 02:15 Urine Blood Small (Negative) A 12/28/20 02:15 Urine Nitrite Negative (Negative) 12/28/20 02:15 Ur Reducing Substances Not Reportable 12/28/20 02:15 Urine Bilirubin Negative (Negative) 12/28/20 02:15 Urine Ictotest Not Reportable 12/28/20 02:15 Urine Urobilinogen < 2.0 mg/dL (<2.0) 12/28/20 02:15 Ur Leukocyte Esterase Negative (Negative) 12/28/20 02:15 Urine WBC (Auto) 3.0 /HPF (0.0-6.0) 12/28/20 02:15 Urine RBC (Auto) 4.0 /HPF (0.0-6.0) 12/28/20 02:15 U Epithel Cells (Auto) < 1.0 /HPF (0-13.0) 12/28/20 02:15 Hyaline Casts 1 /LPF 12/28/20 02:15 Granular Casts 1 /LPF 12/28/20 02:15 Urine Mucus Few /HPF 12/28/20 02:15 Salicylates < 0.3 mg/dL (2.8-20.0) L 12/27/20 17:34 Urine Opiates Screen Negative 12/27/20 17:11 Urine Methadone Screen Negative 12/27/20 17:11 Acetaminophen 5.0 ug/mL (10.0-30.0) L 12/27/20 17:34 Ur Barbiturates Screen Negative 12/27/20 17:11 Ur Phencyclidine Scrn Negative 12/27/20 17:11 Ur Amphetamines Screen Negative 12/27/20 17:11 U Benzodiazepines Scrn Negative 12/27/20 17:11 Urine Cocaine Screen Negative 12/27/20 17:11 U Marijuana (THC) Screen Negative 12/27/20 17:11 Drugs of Abuse Note Disclamer 12/27/20 17:11 Plasma/Serum Alcohol < 0.01 % (0-0.07) 12/27/20 17:34 [place]/IV: Voiding Method Toilet Active Medications - Current Medications Current Medications: Generic Name Dose Route Start Last Admin Trade Name Freq PRN Reason Stop Dose Admin Acetaminophen 650 mg 12/27/20 22:21 12/29/20 05:16 Acetaminophen 325 Mg Tab PO 650 mg Q4H PRN Administration Pain MILD(1-3)/Fever >100.5/CARRERA Al Hydrox/Mg Hydrox/Simethicone 30 ml 12/27/20 22:21 Alum-Mag Hydroxide-Simethicone [id number]/5ml Oral Liqd 30 Ml PO Q4H PRN Indigestion Amlodipine Besylate 2.5 mg 12/29/20 10:00 01/20/21 11:48 Amlodipine 5 Mg Tab PO 2.5 mg QDAY CHELLE Administration Aspirin 81 mg 12/29/20 10:00 01/20/21 11:48 Aspirin 81 Mg Tab Chew PO 81 mg QDAY CHELLE Administration Atorvastatin Calcium 40 mg 12/29/20 22:00 01/20/21 21:48 Atorvastatin 40 Mg Tab PO 40 mg QHS CHELLE Administration Cyanocobalamin 1,000 mcg 12/31/20 15:00 01/20/21 11:48 Cyanocobalamin (Vit B-12) 1000 Mcg Tab PO 1,000 mcg QDAY CHELLE Administration Enoxaparin Sodium 40 mg 12/28/20 10:00 01/20/21 11:49 Enoxaparin 40 Mg/0.4 Ml Inj SUB-Q 40 mg QDAY CHELLE Administration Folic Acid 1 mg 01/03/21 10:00 01/20/21 11:48 Folic Acid 1 Mg Tab PO 1 mg DAILY CHELLE Administration Hydralazine HCl 5 mg 12/27/20 22:35 12/29/20 12:05 Hydralazine 20 Mg/1 Ml Inj IV 5 mg Q4H PRN Administration Hypertension Hydrochlorothiazide 25 mg 12/29/20 10:00 01/20/21 11:48 Hydrochlorothiazide 25 Mg Tab PO 25 mg QDAY CHELLE Administration Levetiracetam 500 mg 01/02/21 10:00 01/20/21 21:48 Levetiracetam 500 Mg Tab PO 500 mg BID CHELLE Administration Lorazepam 2 mg 12/30/20 11:00 12/30/20 22:21 Lorazepam 2 Mg/Ml Vial IV 2 mg Q1HR PRN Administration CIWA-Ar 8-15 Lorazepam 4 mg 12/30/20 11:00 Lorazepam 2 Mg/Ml Vial IV Q1HR PRN CIWA-Ar 16-25 Magnesium Hydroxide 30 ml 09/30/21 22:21 Magnesium Hydroxide (Mom) Oral Liqd Udc PO Q4H PRN Constipation Multivitamins/Minerals 1 each 01/03/21 10:00 01/20/21 11:48 Multivitamins,Ther W-Minerals Tab PO 1 each QDAY CHELLE Administration Naloxone HCl 0.1 mg 12/27/20 22:21 Naloxone 0.4 Mg/1 Ml Inj IV Q2MIN PRN Res Rate </= 8 or 02 SAT < 92% Ondansetron HCl 4 mg 12/27/20 22:21 Ondansetron 4 Mg/2 Ml Inj IV Q8H PRN Nausea And Vomiting Risperidone 1 mg 12/31/20 22:00 01/20/21 21:48 Risperidone 1 Mg Tab PO 1 mg BID CHELLE Administration Sodium Chloride 10 ml 12/28/20 10:00 01/20/21 21:48 Sodium Chloride 0.9% 10 Ml Flush Syringe IV Not Given BID CHELLE Sodium Chloride 10 ml 12/27/20 22:21 Sodium Chloride 0.9% 10 Ml Flush Syringe IV PRN PRN LINE FLUSH Thiamine HCl 100 mg 01/03/21 10:00 01/20/21 11:48 Thiamine 100 Mg Tab PO 100 mg QDAY CHELLE Administration Valproic Acid 250 mg 01/04/21 13:00 01/20/21 11:48 Valproic Acid 250 Mg/5 Ml Oral Liqd PO 250 mg DAILY CHELLE Administration Nutrition/Malnutrition Assess - Dietary Evaluation Nutrition/Malnutrition Findings: Nutrition Notes Start: 01/03/21 16:36 Freq: Status: Active Protocol: Document 01/17/21 14:09 GB (Rec: 01/17/21 14:17 GB [id number]) Nutrition Notes Initial or Follow up Reassessment Current Diagnosis Hypertension Other Pertinent Diagnosis Acute metabolic encephalopathy , ?EtOH dependence, schizophrenia Current Diet Regular Diet Labs/Tests 01/14: unremarkable Pertinent Medications Vitamin B12, Folic Acid, multivitamins/minerals, Vit B1 Height 6 ft Weight 91.2 kg [place] Body Weight (kg) 80.90 BMI 27.2 Weight change and time frame No new weights in past week since last assessment Weight Status Appropriate Subjective/Other Information Pt awaiting placement. PO intake recorded as 100%. note 01/16: pt cleared for discharge Last BM 01/15 Percent of energy/protein needs met: Likely meeting at least 75% energy and pro needs Burn Absent Trauma Absent GI Symptoms None Food Allergy No Skin Integrity/Comment no complications reported Current % PO Good (75-100%) Minimum of two criteria No #1 Nutrition Diagnosis Unintended weight loss Comments: 01/17: no new weights since last assessment- post one week Etiology AMS As Evidenced by Signs and Symptoms pt with possible wt loss over past week Diagnosis Progress(for reassessment Continues documentation) Is patient on ventilator? No Is Patient Ambulatory and/or Out of Bed No REE-(Meeker-St. Jeor-confined to bed) 2116.668 Kcal/Kg value to use for calculation 20 Approximate Energy Requirements Using 1824 kcal/Kg Calculation Used for Recommendations Meeker-St Jeor Additional Notes Pro needs 0.8-1g/kg @ 91k -91g/day Fluid needs 1ml/kcal Nutrition Intervention Change Diet Order: Continue current diet order Nutrition Support: n/a Add Supplement/Snack (indicate name/kcal n/a /protein ) Goal #1 PO intake of meals to be 75% or greater daily for LOS Goal #2 Wt to maintain within +/-3% current weight for LOS Follow-Up By: 01/31/21 Additional Comments F/U: intakes, wt
[2021-01-21] MEDS: levETIRAcetam 500 MG TAB PO SCH ×2 (09:31→21:06)
[2021-01-21] MEDS: ASPIRIN 81 MG TAB CHEW PO SCH (09:31)
[2021-01-21] MEDS: MULTIVITAMINS,THER W-MINERALS TAB PO SCH (09:31)
[2021-01-21] MEDS: CYANOCOBALAMIN (VIT B-12) 1000 MCG TAB PO SCH (09:31)
[2021-01-21] MEDS: hydroCHLOROthiazide 25 MG TAB PO SCH (09:31)
[2021-01-21] MEDS: THIAMINE 100 MG TAB PO SCH (09:31)
[2021-01-21] MEDS: risperiDONE 1 MG TAB PO SCH ×2 (09:31→21:06)
[2021-01-21] MEDS: FOLIC ACID 1 MG TAB PO SCH (09:32)
[2021-01-21] MEDS: ENOXAPARIN 40 MG/0.4 ML INJ SUB-Q SCH (09:32)
[2021-01-21] MEDS: VALPROIC ACID 250 MG/5 ML ORAL LIQD PO SCH (09:33)
[2021-01-21] MEDS: amLODIPine 5 MG TAB PO SCH (09:42)
[2021-01-22 05:56] LABS: Hematocrit 36.5 % (35.5-45.6); Hemoglobin 11.3 gm/dl (11.8-15.2); Mean Corpuscular HGB Conc 31 % (32-34); Mean Corpuscular Volume 72 fl (84-94); Platelet Count 270 K/mm3 (140-440); Red Cell Distribution Width 15.5 % (13.2-15.2)
[2021-01-22 06:14] LABS: BUN/Creatinine Ratio 20; Blood Urea Nitrogen 16 mg/dL (9-20); Hemolysis Index 4
[2021-01-22] MEDS: ASPIRIN 81 MG TAB CHEW PO SCH (10:04)
[2021-01-22] MEDS: CYANOCOBALAMIN (VIT B-12) 1000 MCG TAB PO SCH (10:04)
[2021-01-22] MEDS: ENOXAPARIN 40 MG/0.4 ML INJ SUB-Q SCH (10:04)
[2021-01-22] MEDS: amLODIPine 5 MG TAB PO SCH (10:04)
[2021-01-22] MEDS: hydroCHLOROthiazide 25 MG TAB PO SCH (10:05)
[2021-01-22] MEDS: risperiDONE 1 MG TAB PO SCH ×2 (10:05→21:47)
[2021-01-22] MEDS: MULTIVITAMINS,THER W-MINERALS TAB PO SCH (10:05)
[2021-01-22] MEDS: THIAMINE 100 MG TAB PO SCH (10:05)
[2021-01-22] MEDS: FOLIC ACID 1 MG TAB PO SCH (10:05)
[2021-01-22] MEDS: levETIRAcetam 500 MG TAB PO SCH ×2 (10:05→21:47)
[2021-01-22] MEDS: VALPROIC ACID 250 MG/5 ML ORAL LIQD PO SCH (10:05)
--- NOTE | 2021-01-22 15:46 | Progress Note ---
Assessment and Plan --Acute metabolic ncephalopathy CT of the head and urine drug test-negative MRI of brain ordered unable to do due to lack of consent and patient remains confused Chest x-ray negative for acute finding Consulted neurologist --Febrile illness; in the setting of an encephalopathy on admission ID evaluated the patient, treated with empiric antibiotics, requested LP/MRI, no family available, to give consent And patient is agitated and confused requiring restraints --Hyponatremia/resolved hyponaremia mild-likely 2/2 dehydration continue IV hydration -- Hypertension Continue current antihypertensives. Monitor blood pressure PRN Hydralazine -- Possible Seizure disorder Seizure precautions, antiepileptic medications, neurology consult --?ETOH abuse thiamine, folic acid Closely monitor for alcohol withdrawal symptoms. --History of schizophrenia Continue psych medications psych consulted Closely monitor --DVT prophylaxis Subcutaneous Lovenox Daily Hospital course: 12/28: Patient now with fever of unknown origin. Still confused discussed with ID will obtain lumbar puncture. 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 MRI is pending. 12/29: Still with low grade fever, continue abx, follow cultures, LP to be done on thursday due to no Radiologist, Neurology input noted. Swallow eval ok, continue diet. start on HCTZ and Norvasc for HTN. No history on patient available here yet.] Want CT of the head read as negative during neurologist did review any suspect an acute ischemic stroke starting the patient on aspirin 81 mg daily unfortunately this was not started yesterday not sure why but will start that today. EEG is also ordered for possible subclinical seizures. He refused an ABG. Continue restraints as 12/30: Patient still with confusion, I wonder if he has some etoh issues, will go ahead and start on CIWA protocol in addition to Banana bag. CONTINUE restraints. 12/31: I was able to obtain records from [facility] as patient was recently admitted there on December 20 he was discharged on vitamin B12 1000 mcg daily, ferrous sulfate 325 mg twice a day and Keppra 1000 mg every 12 hours in addition to rest. Do not 1 tablet 2 times a day of 2 mg each. He does have underlying schizophrenia prior history of cocaine abuse and also history of seizure disorder and severe neurocognitive disorder. His court appointed [employer] agent is Grace Padilla phone #[phone]. At the time of his discharge from [place] he was supposed to be placed in a personal assisted as he has a history of wandering. I am not sure if this was done. As he was brought to us "found in the [place]". Clinically he is showing some improvement but with the new information will obtain psych consultation. 01/01; could not do the MRI/LP due to his severe agitation And noncooperation, will try MRI study again tomorrow with Ativan 01/02; radiology cannot do lumbar puncture/MRI study due to patient's severe agitation requiring four-point restraints And no family/hotel yardperson available to consent for the above tests when patient is calm and stable 01/03; patient continues to be agitated requiring restraints, noncooperative and unsteady for lumbar punctures and MRI Patient has no family to give consent, case management informed 01/04; patient is more calm, however gets agitated, CM informed me that patient's Michelle Padilla court appointed guardian, will call me To discuss and give consent for the tests and procedures ,waiting for patient's guardian call 01/05; still waiting for patient's guardian Indra Padilla to call and give consent for MRI/LP 01/06: Did not get a call from the patient's guardian Indra Padilla [Case manageme nt stated that patient's guardian will call me ] 01/07; patient's guardian Michelle Padilla did not contact me , CM could not reach her. No consent for LP/MRI Possible placement to [facility]. Discharge planning per case management 01/08: Patient remains restrained, continue to follow clinically. watershed manager working on placement 01/09: complex case manager working on SNF placement, follow clinically, patient remains confused and requiring restraints. Continue empiric antibiotics per ID recommendation. 01/10: Last day of antibiotic today, pending SNF placement 01/11: Completed empiric antibiotics, pending SNF placement, patient remains confused. We will monitor off restrain, continue supportive care 01/12: Pending SNF placement, continue to monitor off restrain, provide s upportive care 01/13: continue to monitor off restrain, provide supportive care. pending SNF placement 01/14: pending SNF placement, continue to monitor off restrain, provide supportive care 01/22: Patient clinically stable, pending placement. Subjective Date of service: 01/22/21 Principal diagnosis: AMS fever Interval history: Patient seen and examined. Medical records and medication list reviewed. No acute event overnight noted by the RN. Patient denies any chest pain or difficulty breathing. Patient is tolerating diet. Patient remains confused but off restrain Discussed plan of care at bedside with patient. Objective - Exam Narrative Exam: GENERAL: well-developed and well-nourished -[place] male lying on bed appeared to be in no discomfort. Patient is restrained HEENT: Normocephalic. Atraumatic. No conjunctival congestion or icterus. Patient has moist mucous membranes. NECK: Supple. Trachea midline. CHEST/LUNGS: Clear to auscultated bilaterally, breathing nonlabored. No wheezes crackles or rhonchi. HEART/CARDIOVASCULAR: Regular in rate and rhythm. S1 and S2 positive. ABDOMEN: Abdomen is soft, nontender. Patient has normal bowel sounds. SKIN: There is no rash. Warm and dry. NEURO: No focal motor deficit. MUSCULOSKELETAL: No joint effusion or tenderness. EXTRIMITY: No edema, no cyanosis or clubbing. PSYCH: Confused. - Constitutional Vitals: Vital Signs - 12hr 01/22/21 01/22/21 01/22/21 04:06 08:26 10:00 Temperature 97.9 F 99.0 F Pulse Rate 54 L 82 Respiratory 16 18 Rate Blood Pressure 102/66 Blood Pressure 94/55 [Right] O2 Sat by Pulse 96 94 98 Oximetry 01/22/21 01/22/21 10:04 11:49 Temperature 97.8 F Pulse Rate 82 89 Respiratory 18 Rate Blood Pressure 102/66 125/74 Blood Pressure [Right] O2 Sat by Pulse 100 Oximetry - Labs CBC & Chem 7: 01/22/21 04:47 01/22/21 04:47 Labs: Abnormal lab results 01/22/21 01/22/21 Range/Units 04:47 04:47 RBC 5.10 H (3.65-5.03) M/mm3 Hgb 11.3 L (11.8-15.2) gm/dl MCV 72 L (84-94) fl MCH 22 L (28-32) pg MCHC 31 L (32-34) % RDW 15.5 H (13.2-15.2) % Glucose 103 H (75-100) mg/dL
[2021-01-23] MEDS: ENOXAPARIN 40 MG/0.4 ML INJ SUB-Q SCH (10:42)
[2021-01-23] MEDS: hydroCHLOROthiazide 25 MG TAB PO SCH (10:43)
[2021-01-23] MEDS: VALPROIC ACID 250 MG/5 ML ORAL LIQD PO SCH (10:43)
[2021-01-23] MEDS: THIAMINE 100 MG TAB PO SCH (10:43)
[2021-01-23] MEDS: levETIRAcetam 500 MG TAB PO SCH ×2 (10:43→22:34)
[2021-01-23] MEDS: MULTIVITAMINS,THER W-MINERALS TAB PO SCH (10:43)
[2021-01-23] MEDS: CYANOCOBALAMIN (VIT B-12) 1000 MCG TAB PO SCH (10:43)
[2021-01-23] MEDS: FOLIC ACID 1 MG TAB PO SCH (10:44)
[2021-01-23] MEDS: risperiDONE 1 MG TAB PO SCH ×2 (10:44→22:34)
[2021-01-23] MEDS: ASPIRIN 81 MG TAB CHEW PO SCH (10:44)
[2021-01-23] MEDS: amLODIPine 5 MG TAB PO SCH (10:44)
--- NOTE | 2021-01-23 14:47 | Progress Note ---
Assessment and Plan --Acute metabolic ncephalopathy CT of the head and urine drug test-negative MRI of brain ordered unable to do due to lack of consent and patient remains confused Chest x-ray negative for acute finding Consulted neurologist --Febrile illness; in the setting of an encephalopathy on admission ID evaluated the patient, treated with empiric antibiotics, requested LP/MRI, no family available, to give consent And patient is agitated and confused requiring restraints --Hyponatremia/resolved hyponaremia mild-likely 2/2 dehydration continue IV hydration -- Hypertension Continue current antihypertensives. Monitor blood pressure PRN Hydralazine -- Possible Seizure disorder Seizure precautions, antiepileptic medications, neurology consult --?ETOH abuse thiamine, folic acid Closely monitor for alcohol withdrawal symptoms. --History of schizophrenia Continue psych medications psych consulted Closely monitor --DVT prophylaxis Subcutaneous Lovenox Daily Hospital course: 12/28: Patient now with fever of unknown origin. Still confused discussed with ID will obtain lumbar puncture. 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 MRI is pending. 12/29: Still with low grade fever, continue abx, follow cultures, LP to be done on thursday due to no Radiologist, Neurology input noted. Swallow eval ok, continue diet. start on HCTZ and Norvasc for HTN. No history on patient available here yet.] Want CT of the head read as negative during neurologist did review any suspect an acute ischemic stroke starting the patient on aspirin 81 mg daily unfortunately this was not started yesterday not sure why but will start that today. EEG is also ordered for possible subclinical seizures. He refused an ABG. Continue restraints as 12/30: Patient still with confusion, I wonder if he has some etoh issues, will go ahead and start on CIWA protocol in addition to Banana bag. CONTINUE restraints. 12/31: I was able to obtain records from [facility] as patient was recently admitted there on December 20 he was discharged on vitamin B12 1000 mcg daily, ferrous sulfate 325 mg twice a day and Keppra 1000 mg every 12 hours in addition to rest. Do not 1 tablet 2 times a day of 2 mg each. He does have underlying schizophrenia prior history of cocaine abuse and also history of seizure disorder and severe neurocognitive disorder. His court appointed [employer] agent is Grace Padilla phone #[phone]. At the time of his discharge from [place] he was supposed to be placed in a personal long-term as he has a history of wandering. I am not sure if this was done. As he was brought to us "found in [place]". Clinically he is showing some improvement but with the new information will obtain psych consultation. 01/01; could not do the MRI/LP due to his severe agitation And noncooperation, will try MRI study again tomorrow with Ativan 01/02; radiology cannot do lumbar puncture/MRI study due to patient's severe agitation requiring four-point restraints And no family/lathe set up person available to consent for the above tests when patient is calm and stable 01/03; patient continues to be agitated requiring restraints, noncooperative and unsteady for lumbar punctures and MRI Patient has no family to give consent, case management informed 01/04; patient is more calm, however gets agitated, CM informed me that patient's Michelle Padilla court appointed guardian, will call me To discuss and give consent for the tests and procedures ,waiting for patient's guardian call 01/05; still waiting for patient's guardian Indra Padilla to call and give consent for MRI/LP 01/06: Did not get a call from the patient's guardian Indra Padilla [Case manageme nt stated that patient's guardian will call me ] 01/07; patient's guardian Michelle Padilla did not contact me , CM could not reach her. No consent for LP/MRI Possible placement to [facility]. Discharge planning per case management 01/08: Patient remains restrained, continue to follow clinically. horse show manager working on placement 01/09: immigration case manager working on SNF placement, follow clinically, patient remains confused and requiring restraints. Continue empiric antibiotics per ID recommendation. 01/10: Last day of antibiotic today, pending SNF placement 01/11: Completed empiric antibiotics, pending SNF placement, patient remains confused. We will monitor off restrain, continue supportive care 01/12: Pending SNF placement, continue to monitor off restrain, provide s upportive care 01/13: continue to monitor off restrain, provide supportive care. pending SNF placement 01/14: pending SNF placement, continue to monitor off restrain, provide supportive care 01/22: Patient clinically stable, pending placement. 01/23: follow clinicvally, d/c when placement available Subjective Date of service: 01/23/21 Principal diagnosis: AMS fever Interval history: Patient seen and examined. Medical records and medication list reviewed. No acute event overnight noted by the RN. Patient denies any chest pain or difficulty breathing. Patient is tolerating diet. Patient remains confused but off restrain Discussed plan of care at bedside with patient. Objective - Exam Narrative Exam: GENERAL: well-developed and well-nourished -[place] male lying on bed appeared to be in no discomfort. Patient is restrained HEENT: Normocephalic. Atraumatic. No conjunctival congestion or icterus. Patient has moist mucous membranes. NECK: Supple. Trachea midline. CHEST/LUNGS: Clear to auscultated bilaterally, breathing nonlabored. No wheezes crackles or rhonchi. HEART/CARDIOVASCULAR: Regular in rate and rhythm. S1 and S2 positive. ABDOMEN: Abdomen is soft, nontender. Patient has normal bowel sounds. SKIN: There is no rash. Warm and dry. NEURO: No focal motor deficit. MUSCULOSKELETAL: No joint effusion or tenderness. EXTRIMITY: No edema, no cyanosis or clubbing. PSYCH: Confused. - Constitutional Vitals: Vital Signs - 12hr 01/23/21 01/23/21 01/23/21 04:33 07:37 10:00 Temperature 97.7 F 98.0 F Pulse Rate 62 72 Respiratory 18 18 Rate Blood Pressure 102/56 121/77 O2 Sat by Pulse 96 95 98 Oximetry 01/23/21 01/23/21 10:44 13:29 Temperature 97.9 F Pulse Rate 89 77 Respiratory 18 Rate Blood Pressure 108/67 103/49 O2 Sat by Pulse 95 Oximetry - Labs CBC & Chem 7: 01/22/21 04:47 01/22/21 04:47
[2021-01-24] MEDS: VALPROIC ACID 250 MG/5 ML ORAL LIQD PO SCH (09:42)
[2021-01-24] MEDS: ENOXAPARIN 40 MG/0.4 ML INJ SUB-Q SCH (09:42)
[2021-01-24] MEDS: ASPIRIN 81 MG TAB CHEW PO SCH (09:43)
[2021-01-24] MEDS: hydroCHLOROthiazide 25 MG TAB PO SCH (09:43)
[2021-01-24] MEDS: FOLIC ACID 1 MG TAB PO SCH (09:43)
[2021-01-24] MEDS: MULTIVITAMINS,THER W-MINERALS TAB PO SCH (09:43)
[2021-01-24] MEDS: risperiDONE 1 MG TAB PO SCH ×2 (09:43→21:39)
[2021-01-24] MEDS: amLODIPine 5 MG TAB PO SCH (09:43)
[2021-01-24] MEDS: levETIRAcetam 500 MG TAB PO SCH ×2 (09:43→21:39)
[2021-01-24] MEDS: THIAMINE 100 MG TAB PO SCH (09:43)
[2021-01-24] MEDS: CYANOCOBALAMIN (VIT B-12) 1000 MCG TAB PO SCH (09:43)
--- NOTE | 2021-01-24 13:56 | Progress Note ---
Assessment and Plan --Acute metabolic ncephalopathy CT of the head and urine drug test-negative MRI of brain ordered unable to do due to lack of consent and patient remains confused Chest x-ray negative for acute finding Consulted neurologist --Febrile illness; in the setting of an encephalopathy on admission ID evaluated the patient, treated with empiric antibiotics, requested LP/MRI, no family available, to give consent And patient is agitated and confused requiring restraints --Hyponatremia/resolved hyponaremia mild-likely 2/2 dehydration continue IV hydration -- Hypertension Continue current antihypertensives. Monitor blood pressure PRN Hydralazine -- Possible Seizure disorder Seizure precautions, antiepileptic medications, neurology consult --?ETOH abuse thiamine, folic acid Closely monitor for alcohol withdrawal symptoms. --History of schizophrenia Continue psych medications psych consulted Closely monitor --DVT prophylaxis Subcutaneous Lovenox Daily Hospital course: 12/28: Patient now with fever of unknown origin. Still confused discussed with ID will obtain lumbar puncture. 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 MRI is pending. 12/29: Still with low grade fever, continue abx, follow cultures, LP to be done on thursday due to no Radiologist, Neurology input noted. Swallow eval ok, continue diet. start on HCTZ and Norvasc for HTN. No history on patient available here yet.] Want CT of the head read as negative during neurologist did review any suspect an acute ischemic stroke starting the patient on aspirin 81 mg daily unfortunately this was not started yesterday not sure why but will start that today. EEG is also ordered for possible subclinical seizures. He refused an ABG. Continue restraints as 12/30: Patient still with confusion, I wonder if he has some etoh issues, will go ahead and start on CIWA protocol in addition to Banana bag. CONTINUE restraints. 12/31: I was able to obtain records from [facility] as patient was recently admitted there on December 20 he was discharged on vitamin B12 1000 mcg daily, ferrous sulfate 325 mg twice a day and Keppra 1000 mg every 12 hours in addition to rest. Do not 1 tablet 2 times a day of 2 mg each. He does have underlying schizophrenia prior history of cocaine abuse and also history of seizure disorder and severe neurocognitive disorder. His court appointed [employer] agent is Grace Padilla phone #[phone]. At the time of his discharge from [place] he was supposed to be placed in a personal half-way as he has a history of wandering. I am not sure if this was done. As he was brought to us "found in [place]". Clinically he is showing some improvement but with the new information will obtain psych consultation. 01/01; could not do the MRI/LP due to his severe agitation And noncooperation, will try MRI study again tomorrow with Ativan 01/02; radiology cannot do lumbar puncture/MRI study due to patient's severe agitation requiring four-point restraints And no family/life insurance salesperson available to consent for the above tests when patient is calm and stable 01/03; patient continues to be agitated requiring restraints, noncooperative and unsteady for lumbar punctures and MRI Patient has no family to give consent, case management informed 01/04; patient is more calm, however gets agitated, CM informed me that patient's Michelle Padilla court appointed guardian, will call me To discuss and give consent for the tests and procedures ,waiting for patient's guardian call 01/05; still waiting for patient's guardian Indra Padilla to call and give consent for MRI/LP 01/06: Did not get a call from the patient's guardian Indra Padilla [Case manageme nt stated that patient's guardian will call me ] 01/07; patient's guardian Michelle Padilla did not contact me , CM could not reach her. No consent for LP/MRI Possible placement to [facility]. Discharge planning per case management 01/08: Patient remains restrained, continue to follow clinically. manager infrastructure working on placement 01/09: top case assembler working on SNF placement, follow clinically, patient remains confused and requiring restraints. Continue empiric antibiotics per ID recommendation. 01/10: Last day of antibiotic today, pending SNF placement 01/11: Completed empiric antibiotics, pending SNF placement, patient remains confused. We will monitor off restrain, continue supportive care 01/12: Pending SNF placement, continue to monitor off restrain, provide s upportive care 01/13: continue to monitor off restrain, provide supportive care. pending SNF placement 01/14: pending SNF placement, continue to monitor off restrain, provide supportive care 01/22: Patient clinically stable, pending placement. 01/23: follow clinically, d/c when placement available 01/24: Patient denies any acute issue, resting on bed. Pending placement Subjective Date of service: 01/24/21 Principal diagnosis: AMS fever Interval history: Patient seen and examined. Medical records and medication list reviewed. No acute event overnight noted by the RN. Patient denies any chest pain or difficulty breathing. Patient is tolerating diet. Patient remains confused but off restrain Discussed plan of care at bedside with patient. Objective - Exam Narrative Exam: GENERAL: well-developed and well-nourished -[place] male lying on bed appeared to be in no discomfort. Patient is restrained HEENT: Normocephalic. Atraumatic. No conjunctival congestion or icterus. Patient has moist mucous membranes. NECK: Supple. Trachea midline. CHEST/LUNGS: Clear to auscultated bilaterally, breathing nonlabored. No wheezes crackles or rhonchi. HEART/CARDIOVASCULAR: Regular in rate and rhythm. S1 and S2 positive. ABDOMEN: Abdomen is soft, nontender. Patient has normal bowel sounds. SKIN: There is no rash. Warm and dry. NEURO: No focal motor deficit. MUSCULOSKELETAL: No joint effusion or tenderness. EXTRIMITY: No edema, no cyanosis or clubbing. PSYCH: Confused. - Constitutional Vitals: Vital Signs - 12hr 01/24/21 01/24/21 01/24/21 03:52 07:29 08:54 Temperature 98.2 F 97.5 F L Pulse Rate 96 H 54 L Respiratory 18 20 Rate Blood Pressure 114/67 97/56 O2 Sat by Pulse 98 94 98 Oximetry 01/24/21 11:02 Temperature 98.0 F Pulse Rate 62 Respiratory 18 Rate Blood Pressure 102/54 O2 Sat by Pulse 96 Oximetry - Labs CBC & Chem 7: 01/22/21 04:47 01/22/21 04:47
[2021-01-25] MEDS: levETIRAcetam 500 MG TAB PO SCH ×2 (10:19→21:12)
[2021-01-25] MEDS: ENOXAPARIN 40 MG/0.4 ML INJ SUB-Q SCH (10:19)
[2021-01-25] MEDS: hydroCHLOROthiazide 25 MG TAB PO SCH (10:20)
[2021-01-25] MEDS: risperiDONE 1 MG TAB PO SCH ×2 (10:20→21:12)
[2021-01-25] MEDS: CYANOCOBALAMIN (VIT B-12) 1000 MCG TAB PO SCH (10:20)
[2021-01-25] MEDS: THIAMINE 100 MG TAB PO SCH (10:20)
[2021-01-25] MEDS: amLODIPine 5 MG TAB PO SCH (10:20)
[2021-01-25] MEDS: FOLIC ACID 1 MG TAB PO SCH (10:20)
[2021-01-25] MEDS: MULTIVITAMINS,THER W-MINERALS TAB PO SCH (10:20)
[2021-01-25] MEDS: ASPIRIN 81 MG TAB CHEW PO SCH (10:20)
[2021-01-25] MEDS: VALPROIC ACID 250 MG/5 ML ORAL LIQD PO SCH (10:22)
--- NOTE | 2021-01-25 13:43 | Progress Note ---
Assessment and Plan --Acute metabolic ncephalopathy CT of the head and urine drug test-negative MRI of brain ordered unable to do due to lack of consent and patient remains confused Chest x-ray negative for acute finding Consulted neurologist --Febrile illness; in the setting of an encephalopathy on admission ID evaluated the patient, treated with empiric antibiotics, requested LP/MRI, no family available, to give consent And patient is agitated and confused requiring restraints --Hyponatremia/resolved hyponaremia mild-likely 2/2 dehydration continue IV hydration -- Hypertension Continue current antihypertensives. Monitor blood pressure PRN Hydralazine -- Possible Seizure disorder Seizure precautions, antiepileptic medications, neurology consult --?ETOH abuse thiamine, folic acid Closely monitor for alcohol withdrawal symptoms. --History of schizophrenia Continue psych medications psych consulted Closely monitor --DVT prophylaxis Subcutaneous Lovenox Daily Hospital course: 12/28: Patient now with fever of unknown origin. Still confused discussed with ID will obtain lumbar puncture. 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 MRI is pending. 12/29: Still with low grade fever, continue abx, follow cultures, LP to be done on thursday due to no Radiologist, Neurology input noted. Swallow eval ok, continue diet. start on HCTZ and Norvasc for HTN. No history on patient available here yet.] Want CT of the head read as negative during neurologist did review any suspect an acute ischemic stroke starting the patient on aspirin 81 mg daily unfortunately this was not started yesterday not sure why but will start that today. EEG is also ordered for possible subclinical seizures. He refused an ABG. Continue restraints as 12/30: Patient still with confusion, I wonder if he has some etoh issues, will go ahead and start on CIWA protocol in addition to Banana bag. CONTINUE restraints. 12/31: I was able to obtain records from [facility] as patient was recently admitted there on December 20 he was discharged on vitamin B12 1000 mcg daily, ferrous sulfate 325 mg twice a day and Keppra 1000 mg every 12 hours in addition to rest. Do not 1 tablet 2 times a day of 2 mg each. He does have underlying schizophrenia prior history of cocaine abuse and also history of seizure disorder and severe neurocognitive disorder. His court appointed [employer] agent is Grace Padilla phone #[phone]. At the time of his discharge from [place] he was supposed to be placed in a personal snf as he has a history of wandering. I am not sure if this was done. As he was brought to us "found in the [place]". Clinically he is showing some improvement but with the new information will obtain psych consultation. 01/01; could not do the MRI/LP due to his severe agitation And noncooperation, will try MRI study again tomorrow with Ativan 01/02; radiology cannot do lumbar puncture/MRI study due to patient's severe agitation requiring four-point restraints And no family/contact lens blocker and cutter available to consent for the above tests when patient is calm and stable 01/03; patient continues to be agitated requiring restraints, noncooperative and unsteady for lumbar punctures and MRI Patient has no family to give consent, case management informed 01/04; patient is more calm, however gets agitated, CM informed me that patient's Michelle Padilla court appointed guardian, will call me To discuss and give consent for the tests and procedures ,waiting for patient's guardian call 01/05; still waiting for patient's guardian Indra Padilla to call and give consent for MRI/LP 01/06: Did not get a call from the patient's guardian Indra Padilla [Case manageme nt stated that patient's guardian will call me ] 01/07; patient's guardian Michelle Padilla did not contact me , CM could not reach her. No consent for LP/MRI Possible placement to [facility]. Discharge planning per case management 01/08: Patient remains restrained, continue to follow clinically. inbound sales manager working on placement 01/09: case management specialist working on SNF placement, follow clinically, patient remains confused and requiring restraints. Continue empiric antibiotics per ID recommendation. 01/10: Last day of antibiotic today, pending SNF placement 01/11: Completed empiric antibiotics, pending SNF placement, patient remains confused. We will monitor off restrain, continue supportive care 01/12: Pending SNF placement, continue to monitor off restrain, provide s upportive care 01/13: continue to monitor off restrain, provide supportive care. pending SNF placement 01/14: pending SNF placement, continue to monitor off restrain, provide supportive care 01/22: Patient clinically stable, pending placement. 01/23: follow clinically, d/c when placement available 01/24: Patient denies any acute issue, resting on bed. Pending placement 01/25: no distress, pending placement. Subjective Date of service: 01/25/21 Principal diagnosis: AMS fever Interval history: Patient seen and examined. Medical records and medication list reviewed. No acute event overnight noted by the RN. Patient denies any chest pain or difficulty breathing. Patient is tolerating diet. Patient remains confused but off restrain Discussed plan of care at bedside with patient. Objective - Exam Narrative Exam: GENERAL: well-developed and well-nourished -Swedish male lying on bed appeared to be in no discomfort. Patient is restrained HEENT: Normocephalic. Atraumatic. No conjunctival congestion or icterus. Patient has moist mucous membranes. NECK: Supple. Trachea midline. CHEST/LUNGS: Clear to auscultated bilaterally, breathing nonlabored. No wheezes crackles or rhonchi. HEART/CARDIOVASCULAR: Regular in rate and rhythm. S1 and S2 positive. ABDOMEN: Abdomen is soft, nontender. Patient has normal bowel sounds. SKIN: There is no rash. Warm and dry. NEURO: No focal motor deficit. MUSCULOSKELETAL: No joint effusion or tenderness. EXTRIMITY: No edema, no cyanosis or clubbing. PSYCH: Confused. - Constitutional Vitals: Vital Signs - 12hr 01/25/21 01/25/21 01/25/21 07:28 08:03 11:10 Temperature 98.8 F 98.8 F Pulse Rate 60 61 Respiratory 18 20 Rate Blood Pressure 120/65 120/45 Blood Pressure [Right] O2 Sat by Pulse 99 96 95 Oximetry 01/25/21 01/25/21 12:00 12:35 Temperature 98.8 F Pulse Rate 61 Respiratory 20 Rate Blood Pressure Blood Pressure 120/45 [Right] O2 Sat by Pulse 95 Oximetry - Labs CBC & Chem 7: 01/22/21 04:47 01/22/21 04:47
[2021-01-26] MEDS: levETIRAcetam 500 MG TAB PO SCH ×2 (10:38→21:40)
[2021-01-26] MEDS: amLODIPine 5 MG TAB PO SCH (10:38)
[2021-01-26] MEDS: MULTIVITAMINS,THER W-MINERALS TAB PO SCH (10:38)
[2021-01-26] MEDS: CYANOCOBALAMIN (VIT B-12) 1000 MCG TAB PO SCH (10:38)
[2021-01-26] MEDS: FOLIC ACID 1 MG TAB PO SCH (10:38)
[2021-01-26] MEDS: THIAMINE 100 MG TAB PO SCH (10:38)
[2021-01-26] MEDS: ASPIRIN 81 MG TAB CHEW PO SCH (10:38)
[2021-01-26] MEDS: hydroCHLOROthiazide 25 MG TAB PO SCH (10:38)
[2021-01-26] MEDS: risperiDONE 1 MG TAB PO SCH ×2 (10:38→21:40)
[2021-01-26] MEDS: ENOXAPARIN 40 MG/0.4 ML INJ SUB-Q SCH (10:38)
[2021-01-26] MEDS: VALPROIC ACID 250 MG/5 ML ORAL LIQD PO SCH (10:38)
--- NOTE | 2021-01-26 14:07 | Progress Note ---
Assessment and Plan --Acute metabolic ncephalopathy CT of the head and urine drug test-negative MRI of brain ordered unable to do due to lack of consent and patient remains confused Chest x-ray negative for acute finding Consulted neurologist --Febrile illness; in the setting of an encephalopathy on admission ID evaluated the patient, treated with empiric antibiotics, requested LP/MRI, no family available, to give consent And patient is agitated and confused requiring restraints --Hyponatremia/resolved hyponaremia mild-likely 2/2 dehydration continue IV hydration -- Hypertension Continue current antihypertensives. Monitor blood pressure PRN Hydralazine -- Possible Seizure disorder Seizure precautions, antiepileptic medications, neurology consult --?ETOH abuse thiamine, folic acid Closely monitor for alcohol withdrawal symptoms. --History of schizophrenia Continue psych medications psych consulted Closely monitor --DVT prophylaxis Subcutaneous Lovenox Daily Hospital course: 12/28: Patient now with fever of unknown origin. Still confused discussed with ID will obtain lumbar puncture. 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 MRI is pending. 12/29: Still with low grade fever, continue abx, follow cultures, LP to be done on thursday due to no Radiologist, Neurology input noted. Swallow eval ok, continue diet. start on HCTZ and Norvasc for HTN. No history on patient available here yet.] Want CT of the head read as negative during neurologist did review any suspect an acute ischemic stroke starting the patient on aspirin 81 mg daily unfortunately this was not started yesterday not sure why but will start that today. EEG is also ordered for possible subclinical seizures. He refused an ABG. Continue restraints as 12/30: Patient still with confusion, I wonder if he has some etoh issues, will go ahead and start on CIWA protocol in addition to Banana bag. CONTINUE restraints. 12/31: I was able to obtain records from [facility] as patient was recently admitted there on December 20 he was discharged on vitamin B12 1000 mcg daily, ferrous sulfate 325 mg twice a day and Keppra 1000 mg every 12 hours in addition to rest. Do not 1 tablet 2 times a day of 2 mg each. He does have underlying schizophrenia prior history of cocaine abuse and also history of seizure disorder and severe neurocognitive disorder. His court appointed [employer] agent is Grace Padilla phone #[phone]. At the time of his discharge from [place] he was supposed to be placed in a personal half-way as he has a history of wandering. I am not sure if this was done. As he was brought to us "found in the [place]". Clinically he is showing some improvement but with the new information will obtain psych consultation. 01/01; could not do the MRI/LP due to his severe agitation And noncooperation, will try MRI study again tomorrow with Ativan 01/02; radiology cannot do lumbar puncture/MRI study due to patient's severe agitation requiring four-point restraints And no family/grounds person available to consent for the above tests when patient is calm and stable 01/03; patient continues to be agitated requiring restraints, noncooperative and unsteady for lumbar punctures and MRI Patient has no family to give consent, case management informed 01/04; patient is more calm, however gets agitated, CM informed me that patient's Michelle Padilla court appointed guardian, will call me To discuss and give consent for the tests and procedures ,waiting for patient's guardian call 01/05; still waiting for patient's guardian Indra Padilla to call and give consent for MRI/LP 01/06: Did not get a call from the patient's guardian Indra Padilla [Case manageme nt stated that patient's guardian will call me ] 01/07; patient's guardian Michelle Padilal did not contact me , CM could not reach her. No consent for LP/MRI Possible placement to [facility]. Discharge planning per case management 01/08: Patient remains restrained, continue to follow clinically. manager investment banking working on placement 01/09: case liner working on SNF placement, follow clinically, patient remains confused and requiring restraints. Continue empiric antibiotics per ID recommendation. 01/10: Last day of antibiotic today, pending SNF placement 01/11: Completed empiric antibiotics, pending SNF placement, patient remains confused. We will monitor off restrain, continue supportive care 01/12: Pending SNF placement, continue to monitor off restrain, provide s upportive care 01/13: continue to monitor off restrain, provide supportive care. pending SNF placement 01/14: pending SNF placement, continue to monitor off restrain, provide supportive care 01/22: Patient clinically stable, pending placement. 01/23: follow clinically, d/c when placement available 01/24: Patient denies any acute issue, resting on bed. Pending placement 01/25: no distress, pending placement. 01/26: Patient clinically stable, pending placement. Subjective Date of service: 01/26/21 Principal diagnosis: AMS fever Interval history: Patient seen and examined. Medical records and medication list reviewed. No acute event overnight noted by the RN. Patient denies any chest pain or difficulty breathing. Patient is tolerating diet. Patient remains confused but off restrain Discussed plan of care at bedside with patient. Objective - Exam Narrative Exam: GENERAL: well-developed and well-nourished -[place] male lying on bed appeared to be in no discomfort. Patient is restrained HEENT: Normocephalic. Atraumatic. No conjunctival congestion or icterus. Patient has moist mucous membranes. NECK: Supple. Trachea midline. CHEST/LUNGS: Clear to auscultated bilaterally, breathing nonlabored. No wheezes crackles or rhonchi. HEART/CARDIOVASCULAR: Regular in rate and rhythm. S1 and S2 positive. ABDOMEN: Abdomen is soft, nontender. Patient has normal bowel sounds. SKIN: There is no rash. Warm and dry. NEURO: No focal motor deficit. MUSCULOSKELETAL: No joint effusion or tenderness. EXTRIMITY: No edema, no cyanosis or clubbing. PSYCH: Confused. - Constitutional Vitals: Vital Signs - 12hr 01/26/21 01/26/21 01/26/21 04:26 07:58 10:00 Temperature 97.7 F 98.0 F Pulse Rate 64 56 L Respiratory 16 18 Rate Blood Pressure 112/60 109/61 O2 Sat by Pulse 95 93 97 Oximetry 01/26/21 11:08 Temperature 97.9 F Pulse Rate 57 L Respiratory 16 Rate Blood Pressure 130/72 O2 Sat by Pulse 97 Oximetry - Labs CBC & Chem 7: 01/22/21 04:47 01/22/21 04:47
[2021-01-27] MEDS: FOLIC ACID 1 MG TAB PO SCH (10:22)
[2021-01-27] MEDS: VALPROIC ACID 250 MG/5 ML ORAL LIQD PO SCH (10:22)
[2021-01-27] MEDS: ENOXAPARIN 40 MG/0.4 ML INJ SUB-Q SCH (10:22)
[2021-01-27] MEDS: CYANOCOBALAMIN (VIT B-12) 1000 MCG TAB PO SCH (10:22)
[2021-01-27] MEDS: THIAMINE 100 MG TAB PO SCH (10:22)
[2021-01-27] MEDS: risperiDONE 1 MG TAB PO SCH ×2 (10:22→21:23)
[2021-01-27] MEDS: hydroCHLOROthiazide 25 MG TAB PO SCH (10:22)
[2021-01-27] MEDS: ASPIRIN 81 MG TAB CHEW PO SCH (10:22)
[2021-01-27] MEDS: amLODIPine 5 MG TAB PO SCH (10:22)
[2021-01-27] MEDS: MULTIVITAMINS,THER W-MINERALS TAB PO SCH (10:22)
[2021-01-27] MEDS: levETIRAcetam 500 MG TAB PO SCH ×2 (10:23→21:23)
--- NOTE | 2021-01-27 15:59 | Progress Note ---
Assessment and Plan --Acute metabolic ncephalopathy CT of the head and urine drug test-negative MRI of brain ordered unable to do due to lack of consent and patient remains confused Chest x-ray negative for acute finding Consulted neurologist --Febrile illness; in the setting of an encephalopathy on admission ID evaluated the patient, treated with empiric antibiotics, requested LP/MRI, no family available, to give consent And patient is agitated and confused requiring restraints --Hyponatremia/resolved hyponaremia mild-likely 2/2 dehydration continue IV hydration -- Hypertension Continue current antihypertensives. Monitor blood pressure PRN Hydralazine -- Possible Seizure disorder Seizure precautions, antiepileptic medications, neurology consult --?ETOH abuse thiamine, folic acid Closely monitor for alcohol withdrawal symptoms. --History of schizophrenia Continue psych medications psych consulted Closely monitor --DVT prophylaxis Subcutaneous Lovenox Daily Hospital course: 12/28: Patient now with fever of unknown origin. Still confused discussed with ID will obtain lumbar puncture. 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 MRI is pending. 12/29: Still with low grade fever, continue abx, follow cultures, LP to be done on thursday due to no Radiologist, Neurology input noted. Swallow eval ok, continue diet. start on HCTZ and Norvasc for HTN. No history on patient available here yet.] Want CT of the head read as negative during neurologist did review any suspect an acute ischemic stroke starting the patient on aspirin 81 mg daily unfortunately this was not started yesterday not sure why but will start that today. EEG is also ordered for possible subclinical seizures. He refused an ABG. Continue restraints as 12/30: Patient still with confusion, I wonder if he has some etoh issues, will go ahead and start on CIWA protocol in addition to Banana bag. CONTINUE restraints. 12/31: I was able to obtain records from [facility] as patient was recently admitted there on December 20 he was discharged on vitamin B12 1000 mcg daily, ferrous sulfate 325 mg twice a day and Keppra 1000 mg every 12 hours in addition to rest. Do not 1 tablet 2 times a day of 2 mg each. He does have underlying schizophrenia prior history of cocaine abuse and also history of seizure disorder and severe neurocognitive disorder. His court appointed [employer] agent is Grace Padilla phone #[phone]. At the time of his discharge from [place] he was supposed to be placed in a personal halfway as he has a history of wandering. I am not sure if this was done. As he was brought to us "found in the [place]". Clinically he is showing some improvement but with the new information will obtain psych consultation. 01/01; could not do the MRI/LP due to his severe agitation And noncooperation, will try MRI study again tomorrow with Ativan 01/02; radiology cannot do lumbar puncture/MRI study due to patient's severe agitation requiring four-point restraints And no family/salesperson shoes available to consent for the above tests when patient is calm and stable 01/03; patient continues to be agitated requiring restraints, noncooperative and unsteady for lumbar punctures and MRI Patient has no family to give consent, case management informed 01/04; patient is more calm, however gets agitated, CM informed me that patient's Michelle Padilla court appointed guardian, will call me To discuss and give consent for the tests and procedures ,waiting for patient's guardian call 01/05; still waiting for patient's guardian Indra Padilla to call and give consent for MRI/LP 01/06: Did not get a call from the patient's guardian Indra Padilla [Case manageme nt stated that patient's guardian will call me ] 01/07; patient's guardian Michelle Padilla did not contact me , CM could not reach her. No consent for LP/MRI Possible placement to [facility]. Discharge planning per case management 01/08: Patient remains restrained, continue to follow clinically. data operations manager working on placement 01/09: lining caser working on SNF placement, follow clinically, patient remains confused and requiring restraints. Continue empiric antibiotics per ID recommendation. 01/10: Last day of antibiotic today, pending SNF placement 01/11: Completed empiric antibiotics, pending SNF placement, patient remains confused. We will monitor off restrain, continue supportive care 01/12: Pending SNF placement, continue to monitor off restrain, provide s upportive care 01/13: continue to monitor off restrain, provide supportive care. pending SNF placement 01/14: pending SNF placement, continue to monitor off restrain, provide supportive care 01/22: Patient clinically stable, pending placement. 01/23: follow clinically, d/c when placement available 01/24: Patient denies any acute issue, resting on bed. Pending placement 01/25: no distress, pending placement. 01/26: Patient clinically stable, pending placement. 01/27; no distress, pending placement. Subjective Date of service: 01/27/21 Principal diagnosis: AMS fever Interval history: Patient seen and examined. Medical records and medication list reviewed. No acute event overnight noted by the RN. Patient denies any chest pain or difficulty breathing. Patient is tolerating diet. Patient remains confused but off restrain Discussed plan of care at bedside with patient. Objective - Exam Narrative Exam: GENERAL: well-developed and well-nourished -[place] male lying on bed appeared to be in no discomfort. Patient is restrained HEENT: Normocephalic. Atraumatic. No conjunctival congestion or icterus. Patient has moist mucous membranes. NECK: Supple. Trachea midline. CHEST/LUNGS: Clear to auscultated bilaterally, breathing nonlabored. No wheezes crackles or rhonchi. HEART/CARDIOVASCULAR: Regular in rate and rhythm. S1 and S2 positive. ABDOMEN: Abdomen is soft, nontender. Patient has normal bowel sounds. SKIN: There is no rash. Warm and dry. NEURO: No focal motor deficit. MUSCULOSKELETAL: No joint effusion or tenderness. EXTRIMITY: No edema, no cyanosis or clubbing. PSYCH: Confused. - Constitutional Vitals: Vital Signs - 12hr 01/27/21 01/27/21 01/27/21 04:01 08:35 12:06 Temperature 98.0 F 98.4 F 97.9 F Pulse Rate 53 L 50 L 56 L Respiratory 16 18 18 Rate Blood Pressure 114/56 Blood Pressure 113/64 120/64 [Right] O2 Sat by Pulse 98 98 98 Oximetry - Labs CBC & Chem 7: 01/22/21 04:47 01/22/21 04:47
[2021-01-28] MEDS: ENOXAPARIN 40 MG/0.4 ML INJ SUB-Q SCH (09:24)
[2021-01-28] MEDS: risperiDONE 1 MG TAB PO SCH ×2 (09:25→21:27)
[2021-01-28] MEDS: CYANOCOBALAMIN (VIT B-12) 1000 MCG TAB PO SCH (09:25)
[2021-01-28] MEDS: THIAMINE 100 MG TAB PO SCH (09:25)
[2021-01-28] MEDS: MULTIVITAMINS,THER W-MINERALS TAB PO SCH (09:25)
[2021-01-28] MEDS: amLODIPine 5 MG TAB PO SCH (09:25)
[2021-01-28] MEDS: FOLIC ACID 1 MG TAB PO SCH (09:25)
[2021-01-28] MEDS: levETIRAcetam 500 MG TAB PO SCH ×2 (09:25→21:27)
[2021-01-28] MEDS: VALPROIC ACID 250 MG/5 ML ORAL LIQD PO SCH (09:25)
[2021-01-28] MEDS: ASPIRIN 81 MG TAB CHEW PO SCH (09:25)
[2021-01-28] MEDS: hydroCHLOROthiazide 25 MG TAB PO SCH (09:27)
--- NOTE | 2021-01-28 16:14 | Progress Note ---
Assessment and Plan --Acute metabolic ncephalopathy CT of the head and urine drug test-negative MRI of brain ordered unable to do due to lack of consent and patient remains confused Chest x-ray negative for acute finding Consulted neurologist --Febrile illness; in the setting of an encephalopathy on admission ID evaluated the patient, treated with empiric antibiotics, requested LP/MRI, no family available, to give consent And patient is agitated and confused requiring restraints --Hyponatremia/resolved hyponaremia mild-likely 2/2 dehydration continue IV hydration -- Hypertension Continue current antihypertensives. Monitor blood pressure PRN Hydralazine -- Possible Seizure disorder Seizure precautions, antiepileptic medications, neurology consult --?ETOH abuse thiamine, folic acid Closely monitor for alcohol withdrawal symptoms. --History of schizophrenia Continue psych medications psych consulted Closely monitor --DVT prophylaxis Subcutaneous Lovenox Daily Hospital course: 12/28: Patient now with fever of unknown origin. Still confused discussed with ID will obtain lumbar puncture. 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 MRI is pending. 12/29: Still with low grade fever, continue abx, follow cultures, LP to be done on thursday due to no Radiologist, Neurology input noted. Swallow eval ok, continue diet. start on HCTZ and Norvasc for HTN. No history on patient available here yet.] Want CT of the head read as negative during neurologist did review any suspect an acute ischemic stroke starting the patient on aspirin 81 mg daily unfortunately this was not started yesterday not sure why but will start that today. EEG is also ordered for possible subclinical seizures. He refused an ABG. Continue restraints as 12/30: Patient still with confusion, I wonder if he has some etoh issues, will go ahead and start on CIWA protocol in addition to Banana bag. CONTINUE restraints. 12/31: I was able to obtain records from [facility] as patient was recently admitted there on December 20 he was discharged on vitamin B12 1000 mcg daily, ferrous sulfate 325 mg twice a day and Keppra 1000 mg every 12 hours in addition to rest. Do not 1 tablet 2 times a day of 2 mg each. He does have underlying schizophrenia prior history of cocaine abuse and also history of seizure disorder and severe neurocognitive disorder. His court appointed [employer] agent is Grace Padilla phone #[phone]. At the time of his discharge from [place] he was supposed to be placed in a personal jail as he has a history of wandering. I am not sure if this was done. As he was brought to us "found in the [place]". Clinically he is showing some improvement but with the new information will obtain psych consultation. 01/01; could not do the MRI/LP due to his severe agitation And noncooperation, will try MRI study again tomorrow with Ativan 01/02; radiology cannot do lumbar puncture/MRI study due to patient's severe agitation requiring four-point restraints And no family/safety person available to consent for the above tests when patient is calm and stable 01/03; patient continues to be agitated requiring restraints, noncooperative and unsteady for lumbar punctures and MRI Patient has no family to give consent, case management informed 01/04; patient is more calm, however gets agitated, CM informed me that patient's Michelle Padilla court appointed guardian, will call me To discuss and give consent for the tests and procedures ,waiting for patient's guardian call 01/05; still waiting for patient's guardian Indra Padilla to call and give consent for MRI/LP 01/06: Did not get a call from the patient's guardian Indra Padilla [Case manageme nt stated that patient's guardian will call me ] 01/07; patient's guardian Michelle Padilla did not contact me , CM could not reach her. No consent for LP/MRI Possible placement to [facility]. Discharge planning per case management 01/08: Patient remains restrained, continue to follow clinically. marketing project manager working on placement 01/09: embedded case manager working on SNF placement, follow clinically, patient remains confused and requiring restraints. Continue empiric antibiotics per ID recommendation. 01/10: Last day of antibiotic today, pending SNF placement 01/11: Completed empiric antibiotics, pending SNF placement, patient remains confused. We will monitor off restrain, continue supportive care 01/12: Pending SNF placement, continue to monitor off restrain, provide s upportive care 01/13: continue to monitor off restrain, provide supportive care. pending SNF placement 01/14: pending SNF placement, continue to monitor off restrain, provide supportive care 01/22: Patient clinically stable, pending placement. 01/23: follow clinically, d/c when placement available 01/24: Patient denies any acute issue, resting on bed. Pending placement 01/25: no distress, pending placement. 01/26: Patient clinically stable, pending placement. 01/27; 01/25: no distress, pending placement. 01/28: Patient clinically stable, pending placement. cont supportive care Subjective Date of service: 01/28/21 Principal diagnosis: AMS fever Interval history: Patient seen and examined. Medical records and medication list reviewed. No acute event overnight noted by the RN. Patient denies any chest pain or difficulty breathing. Patient is tolerating diet. Patient remains confused but off restrain Discussed plan of care at bedside with patient. Objective - Exam Narrative Exam: GENERAL: well-developed and well-nourished -[place] male lying on bed appeared to be in no discomfort. Patient is restrained HEENT: Normocephalic. Atraumatic. No conjunctival congestion or icterus. Patient has moist mucous membranes. NECK: Supple. Trachea midline. CHEST/LUNGS: Clear to auscultated bilaterally, breathing nonlabored. No wheezes crackles or rhonchi. HEART/CARDIOVASCULAR: Regular in rate and rhythm. S1 and S2 positive. ABDOMEN: Abdomen is soft, nontender. Patient has normal bowel sounds. SKIN: There is no rash. Warm and dry. NEURO: No focal motor deficit. MUSCULOSKELETAL: No joint effusion or tenderness. EXTRIMITY: No edema, no cyanosis or clubbing. PSYCH: Confused. - Constitutional Vitals: Vital Signs - 12hr 01/28/21 01/28/21 01/28/21 09:25 09:31 10:00 Temperature 98.1 F Pulse Rate 68 68 Respiratory 17 18 Rate Blood Pressure 110/60 Blood Pressure 110/60 [Right] O2 Sat by Pulse 97 98 Oximetry 01/28/21 01/28/21 11:57 15:06 Temperature 97.2 F L 97.9 F Pulse Rate 89 78 Respiratory 17 22 Rate Blood Pressure Blood Pressure 117/87 95/58 [Right] O2 Sat by Pulse 97 100 Oximetry - Labs CBC & Chem 7: 01/22/21 04:47 01/22/21 04:47
[2021-01-29] MEDS: CYANOCOBALAMIN (VIT B-12) 1000 MCG TAB PO SCH (09:52)
[2021-01-29] MEDS: hydroCHLOROthiazide 25 MG TAB PO SCH (09:52)
[2021-01-29] MEDS: levETIRAcetam 500 MG TAB PO SCH ×2 (09:52→21:46)
[2021-01-29] MEDS: ASPIRIN 81 MG TAB CHEW PO SCH (09:52)
[2021-01-29] MEDS: VALPROIC ACID 250 MG/5 ML ORAL LIQD PO SCH (09:52)
[2021-01-29] MEDS: MULTIVITAMINS,THER W-MINERALS TAB PO SCH (09:52)
[2021-01-29] MEDS: amLODIPine 5 MG TAB PO SCH (09:52)
[2021-01-29] MEDS: risperiDONE 1 MG TAB PO SCH ×2 (09:53→21:46)
[2021-01-29] MEDS: ENOXAPARIN 40 MG/0.4 ML INJ SUB-Q SCH (09:53)
[2021-01-29] MEDS: FOLIC ACID 1 MG TAB PO SCH (09:53)
[2021-01-29] MEDS: THIAMINE 100 MG TAB PO SCH (09:55)
--- NOTE | 2021-01-29 18:28 | Progress Note ---
Assessment and Plan Assessment and plan: --Acute metabolic ncephalopathy CT of the head and urine drug test-negative MRI of brain ordered unable to do due to lack of consent and patient remains confused Chest x-ray negative for acute finding Consulted neurologist --Febrile illness; in the setting of an encephalopathy on admission ID evaluated the patient, treated with empiric antibiotics, requested LP/MRI, no family available, to give consent And patient is agitated and confused requiring restraints --Hyponatremia/resolved hyponaremia mild-likely 2/2 dehydration continue IV hydration -- Hypertension Continue current antihypertensives. Monitor blood pressure PRN Hydralazine -- Possible Seizure disorder Seizure precautions, antiepileptic medications, neurology consult --?ETOH abuse thiamine, folic acid Closely monitor for alcohol withdrawal symptoms. --History of schizophrenia Continue psych medications psych consulted Closely monitor --DVT prophylaxis Subcutaneous Lovenox Daily Hospital course: 12/28: Patient now with fever of unknown origin. Still confused discussed with ID will obtain lumbar puncture. 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 MRI is pending. 12/29: Still with low grade fever, continue abx, follow cultures, LP to be done on thursday due to no Radiologist, Neurology input noted. Swallow eval ok, continue diet. start on HCTZ and Norvasc for HTN. No history on patient available here yet.] Want CT of the head read as negative during neurologist did review any suspect an acute ischemic stroke starting the patient on aspirin 81 mg daily unfortunately this was not started yesterday not sure why but will start that today. EEG is also ordered for possible subclinical seizures. He refused an ABG. Continue restraints as 12/30: Patient still with confusion, I wonder if he has some etoh issues, will go ahead and start on CIWA protocol in addition to Banana bag. CONTINUE restraints. 12/31: I was able to obtain records from [facility] as patient was recently admitted there on December 20 he was discharged on vitamin B12 1000 mcg daily, ferrous sulfate 325 mg twice a day and Keppra 1000 mg every 12 hours in addition to rest. Do not 1 tablet 2 times a day of 2 mg each. He does have underlying schizophrenia prior history of cocaine abuse and also history of seizure disorder and severe neurocognitive disorder. His court appointed [employer] agent is Grace Padilla phone #[phone]. At the time of his discharge from [place] he was supposed to be placed in a personal long-term as he has a history of wandering. I am not sure if this was done. As he was brought to us "found in the [place]". Clinically he is showing some improvement but with the new information will obtain psych consultation. 01/01; could not do the MRI/LP due to his severe agitation And noncooperation, will try MRI study again tomorrow with Ativan 01/02; radiology cannot do lumbar puncture/MRI study due to patient's severe agitation requiring four-point restraints And no family/contact lens technician available to consent for the above tests when patient is calm and stable 01/03; patient continues to be agitated requiring restraints, noncooperative and unsteady for lumbar punctures and MRI Patient has no family to give consent, case management informed 01/04; patient is more calm, however gets agitated, CM informed me that patient's Michelle Padilla court appointed guardian, will call me To discuss and give consent for the tests and procedures ,waiting for patient's guardian call 01/05; still waiting for patient's guardian Indra Padilla to call and give consent for MRI/LP 01/06: Did not get a call from the patient's guardian Indra Padilla [Case management stated that patient's guardian will call me ] 01/07; patient's guardian Michelle Padilla did not contact me , CM could not reach her. No consent for LP/MRI Possible placement to [facility]. Discharge planning per case management 01/08: Patient remains restrained, continue to follow clinically. retail general manager working on placement 01/09: case consultant working on SNF placement, follow clinically, patient remains confused and requiring restraints. Continue empiric antibiotics per ID recommendation. 01/10: Last day of antibiotic today, pending SNF placement 01/11: Completed empiric antibiotics, pending SNF placement, patient remains confused. We will monitor off restrain, continue supportive care 01/12: Pending SNF placement, continue to monitor off restrain, provide supportive care 01/13: continue to monitor off restrain, provide supportive care. pending SNF placement 01/14: pending SNF placement, continue to monitor off restrain, provide supportive care 01/22: Patient clinically stable, pending placement. 01/23: follow clinically, d/c when placement available 01/24: Patient denies any acute issue, resting on bed. Pending placement 01/25: no distress, pending placement. 01/26: Patient clinically stable, pending placement. 01/27; 01/25: no distress, pending placement. 01/28: Patient clinically stable, pending placement. cont supportive care 01/29/2021: Patient is calm, no behavioral issues reported. Vital signs stable. Awaiting placement. History Interval history: Patient is calm. No behavioral issues reported. Vital signs stable. Awaiting placement. Hospitalist Physical - Constitutional Vitals: Temp Pulse Resp BP Pulse Ox 97.6 F 79 20 112/72 92 01/29/21 16:36 01/29/21 12:06 01/29/21 16:36 01/29/21 16:36 01/29/21 12:06 General appearance: Present: no acute distress, well-nourished - EENT Eyes: Present: PERRL, EOM intact ENT: hearing intact - Neck Neck: Present: supple - Respiratory Respiratory effort: normal Respiratory: bilateral: CTA - Cardiovascular Rhythm: regular - Extremities Extremities: No edema - Abdominal General gastrointestinal: soft, non-tender, non-distended - Integumentary Integumentary: Absent: rash - Psychiatric Psychiatric: cooperative, other (calm) - Neurologic Neurologic: no focal deficits, moves all extremities Results - Labs CBC & Chem 7: 01/22/21 04:47 01/22/21 04:47 Labs: Laboratory Last Values WBC 5.9 K/mm3 (4.5-11.0) 01/22/21 04:47 RBC 5.10 M/mm3 (3.65-5.03) H 01/22/21 04:47 Hgb 11.3 gm/dl (11.8-15.2) L 01/22/21 04:47 Hct 36.5 % (35.5-45.6) 01/22/21 04:47 MCV 72 fl (84-94) L 01/22/21 04:47 MCH 22 pg (28-32) L 01/22/21 04:47 MCHC 31 % (32-34) L 01/22/21 04:47 RDW 15.5 % (13.2-15.2) H 01/22/21 04:47 Plt Count 270 K/mm3 (140-440) 01/22/21 04:47 Lymph % (Auto) 6.4 % (13.4-35.0) L 12/27/20 17:34 Woodruff % (Auto) 3.9 % (0.0-7.3) 12/27/20 17:34 Eos % (Auto) 0.2 % (0.0-4.3) 12/27/20 17:34 Baso % (Auto) Employment Specialist/Program Manager 01/14/21 07:27 Lymph # (Auto) 0.7 K/mm3 (1.2-5.4) L 12/27/20 17:34 Woodruff # (Auto) 0.4 K/mm3 (0.0-0.8) 12/27/20 17:34 Eos # (Auto) 0.0 K/mm3 (0.0-0.4) 12/27/20 17:34 Baso # (Auto) 0.1 K/mm3 (0.0-0.1) 12/27/20 17:34 Add Manual Diff Complete 01/14/21 07:27 Total Counted 100 01/14/21 07:27 Seg Neutrophils % 89.0 % (40.0-70.0) H 12/27/20 17:34 Seg Neuts % (Manual) 76.0 % (40.0-70.0) H 01/14/21 07:27 Band Neutrophils % 1.0 % 01/14/21 07:27 Lymphocytes % (Manual) 8.0 % (13.4-35.0) L 01/14/21 07:27 Reactive Lymphs % (Man) 1.0 % 01/14/21 07:27 Monocytes % (Manual) 4.0 % (0.0-7.3) 01/14/21 07:27 Eosinophils % (Manual) 1.0 % (0.0-4.3) 01/14/21 07:27 Myelocytes % 9.0 % 01/14/21 07:27 Nucleated RBC % Not Reportable 01/14/21 07:27 Seg Neutrophils # 9.5 K/mm3 (1.8-7.7) H 12/27/20 17:34 Seg Neutrophils # Man 4.5 K/mm3 (1.8-7.7) 01/14/21 07:27 Band Neutrophils # 0.1 K/mm3 01/14/21 07:27 Lymphocytes # (Manual) 0.5 K/mm3 (1.2-5.4) L 01/14/21 07:27 Abs React Lymphs (Man) 0.1 K/mm3 01/14/21 07:27 Monocytes # (Manual) 0.2 K/mm3 (0.0-0.8) 01/14/21 07:27 Eosinophils # (Manual) 0.1 K/mm3 (0.0-0.4) 01/14/21 07:27 Basophils # (Manual) 0.0 K/mm3 (0.0-0.1) 01/14/21 07:27 Metamyelocytes # 0.0 K/mm3 01/14/21 07:27 Myelocytes # 0.5 K/mm3 01/14/21 07:27 Promyelocytes # 0.0 K/mm3 01/14/21 07:27 Blast Cells # 0.0 K/mm3 01/14/21 07:27 WBC Morphology Not Reportable 01/14/21 07:27 Hypersegmented Neuts Not Reportable 01/14/21 07:27 Hyposegmented Neuts Not Reportable 01/14/21 07:27 Hypogranular Neuts Not Reportable 01/14/21 07:27 Smudge Cells Not Reportable 01/14/21 07:27 Toxic Granulation Not Reportable 01/14/21 07:27 Toxic Vacuolation Not Reportable 01/14/21 07:27 Dohle Bodies Not Reportable 01/14/21 07:27 Pelger-Huet Anomaly Not Reportable 01/14/21 07:27 Diana Rods Not Reportable 01/14/21 07:27 Platelet Estimate Consistent w auto 01/14/21 07:27 Clumped Platelets Not Reportable 01/14/21 07:27 Plt Clumps, EDTA Not Reportable 01/14/21 07:27 Large Platelets Not Reportable 01/14/21 07:27 Giant Platelets Not Reportable 01/14/21 07:27 Platelet Satelliting Not Reportable 01/14/21 07:27 Plt Morphology Comment Not Reportable 01/14/21 07:27 RBC Morphology Not Reportable 01/14/21 07:27 Dimorphic RBCs Not Reportable 01/14/21 07:27 Polychromasia Not Reportable 01/14/21 07:27 Hypochromasia Not Reportable 01/14/21 07:27 Poikilocytosis Not Reportable 01/14/21 07:27 Anisocytosis Not Reportable 01/14/21 07:27 Microcytosis Not Reportable 01/14/21 07:27 Macrocytosis Not Reportable 01/14/21 07:27 Spherocytes Not Reportable 01/14/21 07:27 Pappenheimer Bodies Not Reportable 01/14/21 07:27 Sickle Cells Not Reportable 01/14/21 07:27 Target Cells Not Reportable 01/14/21 07:27 Tear Drop Cells Not Reportable 01/14/21 07:27 Ovalocytes Not Reportable 01/14/21 07:27 Helmet Cells Not Reportable 01/14/21 07:27 [place] Bodies Not Reportable 01/14/21 07:27 [place] Rings Not Reportable 01/14/21 07:27 Aakash Cells Not Reportable 01/14/21 07:27 Bite Cells Not Reportable 01/14/21 07:27 Crenated Cell Not Reportable 01/14/21 07:27 Elliptocytes Not Reportable 01/14/21 07:27 Acanthocytes (Spur) Not Reportable 01/14/21 07:27 Rouleaux Not Reportable 01/14/21 07:27 Hemoglobin C Crystals Not Reportable 01/14/21 07:27 Schistocytes Not Reportable 01/14/21 07:27 Malaria parasites Not Reportable 01/14/21 07:27 Johnathon Bodies Not Reportable 01/14/21 07:27 Hem Pathologist Commnt No 01/14/21 07:27 Sodium 140 mmol/L (137-145) 01/22/21 04:47 Potassium 3.8 mmol/L (3.6-5.0) 01/22/21 04:47 Chloride 101.3 mmol/L (98-107) 01/22/21 04:47 Carbon Dioxide 28 mmol/L (22-30) 01/22/21 04:47 Anion Gap 15 mmol/L 01/22/21 04:47 BUN 16 mg/dL (9-20) 01/22/21 04:47 Creatinine 0.8 mg/dL (0.8-1.3) 01/22/21 04:47 Estimated GFR > 60 ml/min 01/22/21 04:47 BUN/Creatinine Ratio 20 % 01/22/21 04:47 Glucose 103 mg/dL (75-100) H 01/22/21 04:47 POC Glucose 112 mg/dL (70-105) H 12/29/20 00:14 Lactic Acid 1.30 mmol/L (0.7-2.0) 12/28/20 08:13 Calcium 9.0 mg/dL (8.4-10.2) 01/22/21 04:47 Phosphorus 3.70 mg/dL (2.5-4.5) 12/30/20 13:13 Magnesium 2.10 mg/dL (1.7-2.3) 12/30/20 13:13 Total Bilirubin 0.50 mg/dL (0.1-1.2) 12/31/20 05:02 Direct Bilirubin < 0.2 mg/dL (0-0.2) 12/27/20 17:34 Indirect Bilirubin 0.2 mg/dL 12/27/20 17:34 AST 19 units/L (5-40) 12/31/20 05:02 ALT 12 units/L (7-56) 12/31/20 05:02 Alkaline Phosphatase 72 units/L (35-129) 12/31/20 05:02 Ammonia 21.0 umol/L (25-60) L 12/30/20 13:13 Total Protein 7.1 g/dL (6.3-8.2) 12/31/20 05:02 Albumin 3.7 g/dL (3.9-5) L 12/31/20 05:02 Albumin/Globulin Ratio 1.1 % 12/31/20 05:02 Urine Color Straw (Yellow) 12/28/20 02:15 Urine Turbidity Clear (Clear) 12/28/20 02:15 Urine pH 5.0 (5.0-7.0) 12/28/20 02:15 Ur Specific [place] 1.025 (1.003-1.030) 12/28/20 02:15 Urine Protein 100 mg/dl mg/dL (Negative) 12/28/20 02:15 Urine Glucose (UA) Negative mg/dL (Negative) 12/28/20 02:15 Urine Ketones Negative mg/dL (Negative) 12/28/20 02:15 Urine Blood Small (Negative) A 12/28/20 02:15 Urine Nitrite Negative (Negative) 12/28/20 02:15 Ur Reducing Substances Not Reportable 12/28/20 02:15 Urine Bilirubin Negative (Negative) 12/28/20 02:15 Urine Ictotest Not Reportable 12/28/20 02:15 Urine Urobilinogen < 2.0 mg/dL (<2.0) 12/28/20 02:15 Ur Leukocyte Esterase Negative (Negative) 12/28/20 02:15 Urine WBC (Auto) 3.0 /HPF (0.0-6.0) 12/28/20 02:15 Urine RBC (Auto) 4.0 /HPF (0.0-6.0) 12/28/20 02:15 U Epithel Cells (Auto) < 1.0 /HPF (0-13.0) 12/28/20 02:15 Hyaline Casts 1 /LPF 12/28/20 02:15 Granular Casts 1 /LPF 12/28/20 02:15 Urine Mucus Few /HPF 12/28/20 02:15 Salicylates < 0.3 mg/dL (2.8-20.0) L 12/27/20 17:34 Urine Opiates Screen Negative 12/27/20 17:11 Urine Methadone Screen Negative 12/27/20 17:11 Acetaminophen 5.0 ug/mL (10.0-30.0) L 12/27/20 17:34 Ur Barbiturates Screen Negative 12/27/20 17:11 Ur Phencyclidine Scrn Negative 12/27/20 17:11 Ur Amphetamines Screen Negative 12/27/20 17:11 U Benzodiazepines Scrn Negative 12/27/20 17:11 Urine Cocaine Screen Negative 12/27/20 17:11 U Marijuana (THC) Screen Negative 12/27/20 17:11 Drugs of Abuse Note Disclamer 12/27/20 17:11 Plasma/Serum Alcohol < 0.01 % (0-0.07) 12/27/20 17:34 [place]/IV: Voiding Method Toilet Active Medications - Current Medications Current Medications: Generic Name Dose Route Start Last Admin Trade Name Freq PRN Reason Stop Dose Admin Amlodipine Besylate 2.5 mg 12/29/20 10:00 01/29/21 09:52 Amlodipine 5 Mg Tab PO 2.5 mg QDAY CHELLE Administration Aspirin 81 mg 12/29/20 10:00 01/29/21 09:52 Aspirin 81 Mg Tab Chew PO 81 mg QDAY CHELLE Administration Atorvastatin Calcium 40 mg 12/29/20 22:00 01/28/21 21:27 Atorvastatin 40 Mg Tab PO 40 mg QHS CHELLE Administration Cyanocobalamin 1,000 mcg 12/31/20 15:00 01/29/21 09:52 Cyanocobalamin (Vit B-12) 1000 Mcg Tab PO 1,000 mcg QDAY CHELLE Administration Enoxaparin Sodium 40 mg 12/28/20 10:00 01/29/21 09:53 Enoxaparin 40 Mg/0.4 Ml Inj SUB-Q 40 mg QDAY CHELLE Administration Folic Acid 1 mg 01/03/21 10:00 01/29/21 09:53 Folic Acid 1 Mg Tab PO 1 mg DAILY CHELLE Administration Hydrochlorothiazide 25 mg 12/29/20 10:00 01/29/21 09:52 Hydrochlorothiazide 25 Mg Tab PO 25 mg QDAY CHELLE Administration Levetiracetam 500 mg 01/02/21 10:00 01/29/21 09:52 Levetiracetam 500 Mg Tab PO 500 mg BID CHELLE Administration Lorazepam 2 mg 12/30/20 11:00 12/30/20 22:21 Lorazepam 2 Mg/Ml Vial IV 2 mg Q1HR PRN Administration CIWA-Ar 8-15 Lorazepam 4 mg 12/30/20 11:00 Lorazepam 2 Mg/Ml Vial IV Q1HR PRN CIWA-Ar 16-25 Multivitamins/Minerals 1 each 01/03/21 10:00 01/29/21 09:52 Multivitamins,Ther W-Minerals Tab PO 1 each QDAY CHELLE Administration Risperidone 1 mg 12/31/20 22:00 01/29/21 09:53 Risperidone 1 Mg Tab PO 1 mg BID CHELLE Administration Sodium Chloride 10 ml 12/28/20 10:00 01/28/21 21:27 Sodium Chloride 0.9% 10 Ml Flush Syringe IV Not Given BID CHELLE Thiamine HCl 100 mg 01/03/21 10:00 01/29/21 09:55 Thiamine 100 Mg Tab PO 100 mg QDAY CHELLE Administration Valproic Acid 250 mg 01/04/21 13:00 01/29/21 09:52 Valproic Acid 250 Mg/5 Ml Oral Liqd PO 250 mg DAILY CHELLE Administration Nutrition/Malnutrition Assess - Dietary Evaluation Nutrition/Malnutrition Findings: Nutrition Notes Start: 01/03/21 16:36 Freq: Status: Active Protocol: Document 01/17/21 14:09 GB (Rec: 01/17/21 14:17 GB [id number]) Nutrition Notes Initial or Follow up Reassessment Current Diagnosis Hypertension Other Pertinent Diagnosis Acute metabolic encephalopathy , ?EtOH dependence, schizophrenia Current Diet Regular Diet Labs/Tests 01/14: unremarkable Pertinent Medications Vitamin B12, Folic Acid, multivitamins/minerals, Vit B1 Height 6 ft Weight 91.2 kg [place] Body Weight (kg) 80.90 BMI 27.2 Weight change and time frame No new weights in past week since last assessment Weight Status Appropriate Subjective/Other Information Pt awaiting placement. PO intake recorded as 100%. MD note 01/16: pt cleared for discharge Last BM 01/15 Percent of energy/protein needs met: Likely meeting at least 75% energy and pro needs Burn Absent Trauma Absent GI Symptoms None Food Allergy No Skin Integrity/Comment no complications reported Current % PO Good (75-100%) Minimum of two criteria No #1 Nutrition Diagnosis Unintended weight loss Comments: 01/17: no new weights since last assessment- post one week Etiology AMS As Evidenced by Signs and Symptoms pt with possible wt loss over past week Diagnosis Progress(for reassessment Continues documentation) Is patient on ventilator? No Is Patient Ambulatory and/or Out of Bed No REE-([facility]-confined to bed) 2116.668 Kcal/Kg value to use for calculation 20 Approximate Energy Requirements Using 1824 kcal/Kg Calculation Used for Recommendations [facility] Additional Notes Pro needs 0.8-1g/kg @ 91k -91g/day Fluid needs 1ml/kcal Nutrition Intervention Change Diet Order: Continue current diet order Nutrition Support: n/a Add Supplement/Snack (indicate name/kcal n/a /protein ) Goal #1 PO intake of meals to be 75% or greater daily for LOS Goal #2 Wt to maintain within +/-3% current weight for LOS Follow-Up By: 01/31/21 Additional Comments F/U: intakes, wt
[2021-01-30] MEDS: FOLIC ACID 1 MG TAB PO SCH (10:26)
[2021-01-30] MEDS: CYANOCOBALAMIN (VIT B-12) 1000 MCG TAB PO SCH (10:26)
[2021-01-30] MEDS: levETIRAcetam 500 MG TAB PO SCH ×2 (10:26→22:37)
[2021-01-30] MEDS: hydroCHLOROthiazide 25 MG TAB PO SCH (10:26)
[2021-01-30] MEDS: ASPIRIN 81 MG TAB CHEW PO SCH (10:26)
[2021-01-30] MEDS: THIAMINE 100 MG TAB PO SCH (10:26)
[2021-01-30] MEDS: risperiDONE 1 MG TAB PO SCH ×2 (10:26→22:37)
[2021-01-30] MEDS: MULTIVITAMINS,THER W-MINERALS TAB PO SCH (10:26)
[2021-01-30] MEDS: amLODIPine 5 MG TAB PO SCH (10:26)
[2021-01-30] MEDS: VALPROIC ACID 250 MG/5 ML ORAL LIQD PO SCH (10:27)
[2021-01-30] MEDS: ENOXAPARIN 40 MG/0.4 ML INJ SUB-Q SCH (10:27)
--- NOTE | 2021-01-30 16:06 | Progress Note ---
Assessment and Plan Assessment and plan: --Acute metabolic ncephalopathy CT of the head and urine drug test-negative MRI of brain ordered unable to do due to lack of consent and patient remains confused Chest x-ray negative for acute finding Consulted neurologist --Febrile illness; in the setting of an encephalopathy on admission ID evaluated the patient, treated with empiric antibiotics, requested LP/MRI, no family available, to give consent And patient is agitated and confused requiring restraints --Hyponatremia/resolved hyponaremia mild-likely 2/2 dehydration continue IV hydration -- Hypertension Continue current antihypertensives. Monitor blood pressure PRN Hydralazine -- Possible Seizure disorder Seizure precautions, antiepileptic medications, neurology consult --?ETOH abuse thiamine, folic acid Closely monitor for alcohol withdrawal symptoms. --History of schizophrenia Continue psych medications psych consulted Closely monitor --DVT prophylaxis Subcutaneous Lovenox Daily Hospital course: 12/28: Patient now with fever of unknown origin. Still confused discussed with ID will obtain lumbar puncture. 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 MRI is pending. 12/29: Still with low grade fever, continue abx, follow cultures, LP to be done on thursday due to no Radiologist, Neurology input noted. Swallow eval ok, continue diet. start on HCTZ and Norvasc for HTN. No history on patient available here yet.] Want CT of the head read as negative during neurologist did review any suspect an acute ischemic stroke starting the patient on aspirin 81 mg daily unfortunately this was not started yesterday not sure why but will start that today. EEG is also ordered for possible subclinical seizures. He refused an ABG. Continue restraints as 12/30: Patient still with confusion, I wonder if he has some etoh issues, will go ahead and start on CIWA protocol in addition to Banana bag. CONTINUE restraints. 12/31: I was able to obtain records from [facility] as patient was recently admitted there on December 20 he was discharged on vitamin B12 1000 mcg daily, ferrous sulfate 325 mg twice a day and Keppra 1000 mg every 12 hours in addition to rest. Do not 1 tablet 2 times a day of 2 mg each. He does have underlying schizophrenia prior history of cocaine abuse and also history of seizure disorder and severe neurocognitive disorder. His court appointed [employer] agent is Grace Padilla phone #[phone]. At the time of his discharge from [place] he was supposed to be placed in a personal fdc as he has a history of wandering. I am not sure if this was done. As he was brought to us "found in the [facility]". Clinically he is showing some improvement but with the new information will obtain psych consultation. 01/01; could not do the MRI/LP due to his severe agitation And noncooperation, will try MRI study again tomorrow with Ativan 01/02; radiology cannot do lumbar puncture/MRI study due to patient's severe agitation requiring four-point restraints And no family/contact lens edge buffer available to consent for the above tests when patient is calm and stable 01/03; patient continues to be agitated requiring restraints, noncooperative and unsteady for lumbar punctures and MRI Patient has no family to give consent, case management informed 01/04; patient is more calm, however gets agitated, CM informed me that patient's Michelle Padilla court appointed guardian, will call me To discuss and give consent for the tests and procedures ,waiting for patient's guardian call 01/05; still waiting for patient's guardian Indra Padilla to call and give consent for MRI/LP 01/06: Did not get a call from the patient's guardian Indra Padilla [Case management stated that patient's guardian will call me ] 01/07; patient's guardian Michelle Padilla did not contact me , CM could not reach her. No consent for LP/MRI Possible placement to [facility]. Discharge planning per case management 01/08: Patient remains restrained, continue to follow clinically. estimation manager working on placement 01/09: sample case porter working on SNF placement, follow clinically, patient remains confused and requiring restraints. Continue empiric antibiotics per ID recommendation. 01/10: Last day of antibiotic today, pending SNF placement 01/11: Completed empiric antibiotics, pending SNF placement, patient remains confused. We will monitor off restrain, continue supportive care 01/12: Pending SNF placement, continue to monitor off restrain, provide supportive care 01/13: continue to monitor off restrain, provide supportive care. pending SNF placement 01/14: pending SNF placement, continue to monitor off restrain, provide supportive care 01/22: Patient clinically stable, pending placement. 01/23: follow clinically, d/c when placement available 01/24: Patient denies any acute issue, resting on bed. Pending placement 01/25: no distress, pending placement. 01/26: Patient clinically stable, pending placement. 01/27; 01/25: no distress, pending placement. 01/28: Patient clinically stable, pending placement. cont supportive care 01/29/2021: Patient is calm, no behavioral issues reported. Vital signs stable. Awaiting placement. 01/30/2021: Patient is calm, no behavioral issues reported. Vital signs stable. Awaiting placement. History Interval history: Patient is calm. No behavioral issues reported. No acute events reported. He is psychotic with history of schizophrenia. Vital signs stable. Awaiting placement. Hospitalist Physical - Constitutional Vitals: Temp Pulse Resp BP Pulse Ox 97.5 F L 57 L 18 119/71 100 01/30/21 08:02 01/30/21 08:02 01/30/21 08:02 01/30/21 08:02 01/30/21 08:53 General appearance: Present: no acute distress, well-nourished - EENT Eyes: Present: PERRL, EOM intact ENT: clear oral mucosa - Neck Neck: Present: supple - Respiratory Respiratory effort: normal Respiratory: bilateral: CTA - Cardiovascular Rhythm: regular - Extremities Extremities: No edema - Abdominal General gastrointestinal: soft, non-tender - Integumentary Integumentary: Absent: rash - Psychiatric Psychiatric: cooperative, other (Psychotic) - Neurologic Neurologic: no focal deficits Results - Labs CBC & Chem 7: 01/22/21 04:47 01/22/21 04:47 Labs: Laboratory Last Values WBC 5.9 K/mm3 (4.5-11.0) 01/22/21 04:47 RBC 5.10 M/mm3 (3.65-5.03) H 01/22/21 04:47 Hgb 11.3 gm/dl (11.8-15.2) L 01/22/21 04:47 Hct 36.5 % (35.5-45.6) 01/22/21 04:47 MCV 72 fl (84-94) L 01/22/21 04:47 MCH 22 pg (28-32) L 01/22/21 04:47 MCHC 31 % (32-34) L 01/22/21 04:47 RDW 15.5 % (13.2-15.2) H 01/22/21 04:47 Plt Count 270 K/mm3 (140-440) 01/22/21 04:47 Lymph % (Auto) 6.4 % (13.4-35.0) L 12/27/20 17:34 Harrison % (Auto) 3.9 % (0.0-7.3) 12/27/20 17:34 Eos % (Auto) 0.2 % (0.0-4.3) 12/27/20 17:34 Baso % (Auto) Datacap Developer 01/14/21 07:27 Lymph # (Auto) 0.7 K/mm3 (1.2-5.4) L 12/27/20 17:34 Harrison # (Auto) 0.4 K/mm3 (0.0-0.8) 12/27/20 17:34 Eos # (Auto) 0.0 K/mm3 (0.0-0.4) 12/27/20 17:34 Baso # (Auto) 0.1 K/mm3 (0.0-0.1) 12/27/20 17:34 Add Manual Diff Complete 01/14/21 07:27 Total Counted 100 01/14/21 07:27 Seg Neutrophils % 89.0 % (40.0-70.0) H 12/27/20 17:34 Seg Neuts % (Manual) 76.0 % (40.0-70.0) H 01/14/21 07:27 Band Neutrophils % 1.0 % 01/14/21 07:27 Lymphocytes % (Manual) 8.0 % (13.4-35.0) L 01/14/21 07:27 Reactive Lymphs % (Man) 1.0 % 01/14/21 07:27 Monocytes % (Manual) 4.0 % (0.0-7.3) 01/14/21 07:27 Eosinophils % (Manual) 1.0 % (0.0-4.3) 01/14/21 07:27 Myelocytes % 9.0 % 01/14/21 07:27 Nucleated RBC % Not Reportable 01/14/21 07:27 Seg Neutrophils # 9.5 K/mm3 (1.8-7.7) H 12/27/20 17:34 Seg Neutrophils # Man 4.5 K/mm3 (1.8-7.7) 01/14/21 07:27 Band Neutrophils # 0.1 K/mm3 01/14/21 07:27 Lymphocytes # (Manual) 0.5 K/mm3 (1.2-5.4) L 01/14/21 07:27 Abs React Lymphs (Man) 0.1 K/mm3 01/14/21 07:27 Monocytes # (Manual) 0.2 K/mm3 (0.0-0.8) 01/14/21 07:27 Eosinophils # (Manual) 0.1 K/mm3 (0.0-0.4) 01/14/21 07:27 Basophils # (Manual) 0.0 K/mm3 (0.0-0.1) 01/14/21 07:27 Metamyelocytes # 0.0 K/mm3 01/14/21 07:27 Myelocytes # 0.5 K/mm3 01/14/21 07:27 Promyelocytes # 0.0 K/mm3 01/14/21 07:27 Blast Cells # 0.0 K/mm3 01/14/21 07:27 WBC Morphology Not Reportable 01/14/21 07:27 Hypersegmented Neuts Not Reportable 01/14/21 07:27 Hyposegmented Neuts Not Reportable 01/14/21 07:27 Hypogranular Neuts Not Reportable 01/14/21 07:27 Smudge Cells Not Reportable 01/14/21 07:27 Toxic Granulation Not Reportable 01/14/21 07:27 Toxic Vacuolation Not Reportable 01/14/21 07:27 Dohle Bodies Not Reportable 01/14/21 07:27 Pelger-Huet Anomaly Not Reportable 01/14/21 07:27 Diana Rods Not Reportable 01/14/21 07:27 Platelet Estimate Consistent w auto 01/14/21 07:27 Clumped Platelets Not Reportable 01/14/21 07:27 Plt Clumps, EDTA Not Reportable 01/14/21 07:27 Large Platelets Not Reportable 01/14/21 07:27 Giant Platelets Not Reportable 01/14/21 07:27 Platelet Satelliting Not Reportable 01/14/21 07:27 Plt Morphology Comment Not Reportable 01/14/21 07:27 RBC Morphology Not Reportable 01/14/21 07:27 Dimorphic RBCs Not Reportable 01/14/21 07:27 Polychromasia Not Reportable 01/14/21 07:27 Hypochromasia Not Reportable 01/14/21 07:27 Poikilocytosis Not Reportable 01/14/21 07:27 Anisocytosis Not Reportable 01/14/21 07:27 Microcytosis Not Reportable 01/14/21 07:27 Macrocytosis Not Reportable 01/14/21 07:27 Spherocytes Not Reportable 01/14/21 07:27 Pappenheimer Bodies Not Reportable 01/14/21 07:27 Sickle Cells Not Reportable 01/14/21 07:27 Target Cells Not Reportable 01/14/21 07:27 Tear Drop Cells Not Reportable 01/14/21 07:27 Ovalocytes Not Reportable 01/14/21 07:27 Helmet Cells Not Reportable 01/14/21 07:[address] [place] Bodies Not Reportable 01/14/21 07:27 [place] Rings Not Reportable 01/14/21 07:27 Aakash Cells Not Reportable 01/14/21 07:27 Bite Cells Not Reportable 01/14/21 07:27 Crenated Cell Not Reportable 01/14/21 07:27 Elliptocytes Not Reportable 01/14/21 07:27 Acanthocytes (Spur) Not Reportable 01/14/21 07:27 Rouleaux Not Reportable 01/14/21 07:27 Hemoglobin C Crystals Not Reportable 01/14/21 07:27 Schistocytes Not Reportable 01/14/21 07:27 Malaria parasites Not Reportable 01/14/21 07:27 Johnathon Bodies Not Reportable 01/14/21 07:27 Hem Pathologist Commnt No 01/14/21 07:27 Sodium 140 mmol/L (137-145) 01/22/21 04:47 Potassium 3.8 mmol/L (3.6-5.0) 01/22/21 04:47 Chloride 101.3 mmol/L (98-107) 01/22/21 04:47 Carbon Dioxide 28 mmol/L (22-30) 01/22/21 04:47 Anion Gap 15 mmol/L 01/22/21 04:47 BUN 16 mg/dL (9-20) 01/22/21 04:47 Creatinine 0.8 mg/dL (0.8-1.3) 01/22/21 04:47 Estimated GFR > 60 ml/min 01/22/21 04:47 BUN/Creatinine Ratio 20 % 01/22/21 04:47 Glucose 103 mg/dL (75-100) H 01/22/21 04:47 POC Glucose 112 mg/dL (70-105) H 12/29/20 00:14 Lactic Acid 1.30 mmol/L (0.7-2.0) 12/28/20 08:13 Calcium 9.0 mg/dL (8.4-10.2) 01/22/21 04:47 Phosphorus 3.70 mg/dL (2.5-4.5) 12/30/20 13:13 Magnesium 2.10 mg/dL (1.7-2.3) 12/30/20 13:13 Total Bilirubin 0.50 mg/dL (0.1-1.2) 12/31/20 05:02 Direct Bilirubin < 0.2 mg/dL (0-0.2) 12/27/20 17:34 Indirect Bilirubin 0.2 mg/dL 12/27/20 17:34 AST 19 units/L (5-40) 12/31/20 05:02 ALT 12 units/L (7-56) 12/31/20 05:02 Alkaline Phosphatase 72 units/L (35-129) 12/31/20 05:02 Ammonia 21.0 umol/L (25-60) L 12/30/20 13:13 Total Protein 7.1 g/dL (6.3-8.2) 12/31/20 05:02 Albumin 3.7 g/dL (3.9-5) L 12/31/20 05:02 Albumin/Globulin Ratio 1.1 % 12/31/20 05:02 Urine Color Straw (Yellow) 12/28/20 02:15 Urine Turbidity Clear (Clear) 12/28/20 02:15 Urine pH 5.0 (5.0-7.0) 12/28/20 02:15 Ur Specific [place] 1.025 (1.003-1.030) 12/28/20 02:15 Urine Protein 100 mg/dl mg/dL (Negative) 12/28/20 02:15 Urine Glucose (UA) Negative mg/dL (Negative) 12/28/20 02:15 Urine Ketones Negative mg/dL (Negative) 12/28/20 02:15 Urine Blood Small (Negative) A 12/28/20 02:15 Urine Nitrite Negative (Negative) 12/28/20 02:15 Ur Reducing Substances Not Reportable 12/28/20 02:15 Urine Bilirubin Negative (Negative) 12/28/20 02:15 Urine Ictotest Not Reportable 12/28/20 02:15 Urine Urobilinogen < 2.0 mg/dL (<2.0) 12/28/20 02:15 Ur Leukocyte Esterase Negative (Negative) 12/28/20 02:15 Urine WBC (Auto) 3.0 /HPF (0.0-6.0) 12/28/20 02:15 Urine RBC (Auto) 4.0 /HPF (0.0-6.0) 12/28/20 02:15 U Epithel Cells (Auto) < 1.0 /HPF (0-13.0) 12/28/20 02:15 Hyaline Casts 1 /LPF 12/28/20 02:15 Granular Casts 1 /LPF 12/28/20 02:15 Urine Mucus Few /HPF 12/28/20 02:15 Salicylates < 0.3 mg/dL (2.8-20.0) L 12/27/20 17:34 Urine Opiates Screen Negative 12/27/20 17:11 Urine Methadone Screen Negative 12/27/20 17:11 Acetaminophen 5.0 ug/mL (10.0-30.0) L 12/27/20 17:34 Ur Barbiturates Screen Negative 12/27/20 17:11 Ur Phencyclidine Scrn Negative 12/27/20 17:11 Ur Amphetamines Screen Negative 12/27/20 17:11 U Benzodiazepines Scrn Negative 12/27/20 17:11 Urine Cocaine Screen Negative 12/27/20 17:11 U Marijuana (THC) Screen Negative 12/27/20 17:11 Drugs of Abuse Note Disclamer 12/27/20 17:11 Plasma/Serum Alcohol < 0.01 % (0-0.07) 12/27/20 17:34 [place]/IV: Voiding Method Toilet Active Medications - Current Medications Current Medications: Generic Name Dose Route Start Last Admin Trade Name Freq PRN Reason Stop Dose Admin Amlodipine Besylate 2.5 mg 10/02/21 10:00 01/30/21 10:26 Amlodipine 5 Mg Tab PO 2.5 mg QDAY CHELLE Administration Aspirin 81 mg 12/29/20 10:00 01/30/21 10:26 Aspirin 81 Mg Tab Chew PO 81 mg QDAY CHELLE Administration Atorvastatin Calcium 40 mg 12/29/20 22:00 01/29/21 21:46 Atorvastatin 40 Mg Tab PO 40 mg QHS CHELLE Administration Cyanocobalamin 1,000 mcg 12/31/20 15:00 01/30/21 10:26 Cyanocobalamin (Vit B-12) 1000 Mcg Tab PO 1,000 mcg QDAY CHELLE Administration Enoxaparin Sodium 40 mg 12/28/20 10:00 01/30/21 10:27 Enoxaparin 40 Mg/0.4 Ml Inj SUB-Q 40 mg QDAY CHELLE Administration Folic Acid 1 mg 01/03/21 10:00 01/30/21 10:26 Folic Acid 1 Mg Tab PO 1 mg DAILY CHELLE Administration Hydrochlorothiazide 25 mg 12/29/20 10:00 01/30/21 10:26 Hydrochlorothiazide 25 Mg Tab PO 25 mg QDAY CHELLE Administration Levetiracetam 500 mg 01/02/21 10:00 01/30/21 10:26 Levetiracetam 500 Mg Tab PO 500 mg BID CHELLE Administration Lorazepam 2 mg 12/30/20 11:00 12/30/20 22:21 Lorazepam 2 Mg/Ml Vial IV 2 mg Q1HR PRN Administration CIWA-Ar 8-15 Lorazepam 4 mg 12/30/20 11:00 Lorazepam 2 Mg/Ml Vial IV Q1HR PRN CIWA-Ar 16-25 Multivitamins/Minerals 1 each 01/03/21 10:00 01/30/21 10:26 Multivitamins,Ther W-Minerals Tab PO 1 each QDAY CHELLE Administration Risperidone 1 mg 12/31/20 22:00 01/30/21 10:26 Risperidone 1 Mg Tab PO 1 mg BID CHELLE Administration Sodium Chloride 10 ml 12/28/20 10:00 01/30/21 10:44 Sodium Chloride 0.9% 10 Ml Flush Syringe IV Not Given BID CHELLE Thiamine HCl 100 mg 01/03/21 10:00 01/30/21 10:26 Thiamine 100 Mg Tab PO 100 mg QDAY CHELLE Administration Valproic Acid 250 mg 01/04/21 13:00 01/30/21 10:27 Valproic Acid 250 Mg/5 Ml Oral Liqd PO 250 mg DAILY CHELLE Administration Nutrition/Malnutrition Assess - Dietary Evaluation Nutrition/Malnutrition Findings: Nutrition Notes Start: 01/03/21 16:36 Freq: Status: Active Protocol: Document 01/17/21 14:09 GB (Rec: 01/17/21 14:17 GB [id number]) Nutrition Notes Initial or Follow up Reassessment Current Diagnosis Hypertension Other Pertinent Diagnosis Acute metabolic encephalopathy , ?EtOH dependence, schizophrenia Current Diet Regular Diet Labs/Tests 01/14: unremarkable Pertinent Medications Vitamin B12, Folic Acid, multivitamins/minerals, Vit B1 Height 6 ft Weight 91.2 kg [place] Body Weight (kg) 80.90 BMI 27.2 Weight change and time frame No new weights in past week since last assessment Weight Status Appropriate Subjective/Other Information Pt awaiting placement. PO intake recorded as 100%. MD note 01/16: pt cleared for discharge Last BM 01/15 Percent of energy/protein needs met: Likely meeting at least 75% energy and pro needs Burn Absent Trauma Absent GI Symptoms None Food Allergy No Skin Integrity/Comment no complications reported Current % PO Good (75-100%) Minimum of two criteria No #1 Nutrition Diagnosis Unintended weight loss Comments: 01/17: no new weights since last assessment- post one week Etiology AMS As Evidenced by Signs and Symptoms pt with possible wt loss over past week Diagnosis Progress(for reassessment Continues documentation) Is patient on ventilator? No Is Patient Ambulatory and/or Out of Bed No REE-([facility]-confined to bed) 2116.668 Kcal/Kg value to use for calculation 20 Approximate Energy Requirements Using 1824 kcal/Kg Calculation Used for Recommendations [facility] Additional Notes Pro needs 0.8-1g/kg @ 91k -91g/day Fluid needs 1ml/kcal Nutrition Intervention Change Diet Order: Continue current diet order Nutrition Support: n/a Add Supplement/Snack (indicate name/kcal n/a /protein ) Goal #1 PO intake of meals to be 75% or greater daily for LOS Goal #2 Wt to maintain within +/-3% current weight for LOS Follow-Up By: 01/31/21 Additional Comments F/U: intakes, wt
[2021-01-31] MEDS: FOLIC ACID 1 MG TAB PO SCH (09:24)
[2021-01-31] MEDS: VALPROIC ACID 250 MG/5 ML ORAL LIQD PO SCH (09:24)
[2021-01-31] MEDS: hydroCHLOROthiazide 25 MG TAB PO SCH (09:25)
[2021-01-31] MEDS: amLODIPine 5 MG TAB PO SCH (09:25)
[2021-01-31] MEDS: levETIRAcetam 500 MG TAB PO SCH ×2 (09:25→21:53)
[2021-01-31] MEDS: CYANOCOBALAMIN (VIT B-12) 1000 MCG TAB PO SCH (09:25)
[2021-01-31] MEDS: THIAMINE 100 MG TAB PO SCH (09:25)
[2021-01-31] MEDS: ASPIRIN 81 MG TAB CHEW PO SCH (09:25)
[2021-01-31] MEDS: MULTIVITAMINS,THER W-MINERALS TAB PO SCH (09:25)
[2021-01-31] MEDS: ENOXAPARIN 40 MG/0.4 ML INJ SUB-Q SCH (09:25)
[2021-01-31] MEDS: risperiDONE 1 MG TAB PO SCH ×2 (09:26→21:54)
--- NOTE | 2021-01-31 18:13 | Progress Note ---
Assessment and Plan Assessment and plan: --Acute metabolic ncephalopathy CT of the head and urine drug test-negative MRI of brain ordered unable to do due to lack of consent and patient remains confused Chest x-ray negative for acute finding Consulted neurologist --Febrile illness; in the setting of an encephalopathy on admission ID evaluated the patient, treated with empiric antibiotics, requested LP/MRI, no family available, to give consent And patient is agitated and confused requiring restraints --Hyponatremia/resolved hyponaremia mild-likely 2/2 dehydration continue IV hydration -- Hypertension Continue current antihypertensives. Monitor blood pressure PRN Hydralazine -- Possible Seizure disorder Seizure precautions, antiepileptic medications, neurology consult --?ETOH abuse thiamine, folic acid Closely monitor for alcohol withdrawal symptoms. --History of schizophrenia Continue psych medications psych consulted Closely monitor --DVT prophylaxis Subcutaneous Lovenox Daily Hospital course: 12/28: Patient now with fever of unknown origin. Still confused discussed with ID will obtain lumbar puncture. 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 MRI is pending. 12/29: Still with low grade fever, continue abx, follow cultures, LP to be done on thursday due to no Radiologist, Neurology input noted. Swallow eval ok, continue diet. start on HCTZ and Norvasc for HTN. No history on patient available here yet.] Want CT of the head read as negative during neurologist did review any suspect an acute ischemic stroke starting the patient on aspirin 81 mg daily unfortunately this was not started yesterday not sure why but will start that today. EEG is also ordered for possible subclinical seizures. He refused an ABG. Continue restraints as 12/30: Patient still with confusion, I wonder if he has some etoh issues, will go ahead and start on CIWA protocol in addition to Banana bag. CONTINUE restraints. 12/31: I was able to obtain records from [facility] as patient was recently admitted there on December 20 he was discharged on vitamin B12 1000 mcg daily, ferrous sulfate 325 mg twice a day and Keppra 1000 mg every 12 hours in addition to rest. Do not 1 tablet 2 times a day of 2 mg each. He does have underlying schizophrenia prior history of cocaine abuse and also history of seizure disorder and severe neurocognitive disorder. His court appointed [employer] agent is Grace Padilla phone #[phone]. At the time of his discharge from [facility] he was supposed to be placed in a personal correction as he has a history of wandering. I am not sure if this was done. As he was brought to us "found in the ag[place]irre". Clinically he is showing some improvement but with the new information will obtain psych consultation. 01/01; could not do the MRI/LP due to his severe agitation And noncooperation, will try MRI study again tomorrow with Ativan 01/02; radiology cannot do lumbar puncture/MRI study due to patient's severe agitation requiring four-point restraints And no family/personal injury attorney available to consent for the above tests when patient is calm and stable 01/03; patient continues to be agitated requiring restraints, noncooperative and unsteady for lumbar punctures and MRI Patient has no family to give consent, case management informed 01/04; patient is more calm, however gets agitated, CM informed me that patient's Michelle Padilla court appointed guardian, will call me To discuss and give consent for the tests and procedures ,waiting for patient's guardian call 01/05; still waiting for patient's guardian Indra Padilla to call and give consent for MRI/LP 01/06: Did not get a call from the patient's guardian Indra Padilla [Case management stated that patient's guardian will call me ] 01/07; patient's guardian Michelle Padilla did not contact me , CM could not reach her. No consent for LP/MRI Possible placement to [facility]. Discharge planning per case management 01/08: Patient remains restrained, continue to follow clinically. agency development manager working on placement 01/09: case repairer working on SNF placement, follow clinically, patient remains confused and requiring restraints. Continue empiric antibiotics per ID recommendation. 01/10: Last day of antibiotic today, pending SNF placement 01/11: Completed empiric antibiotics, pending SNF placement, patient remains confused. We will monitor off restrain, continue supportive care 01/12: Pending SNF placement, continue to monitor off restrain, provide supportive care 01/13: continue to monitor off restrain, provide supportive care. pending SNF placement 01/14: pending SNF placement, continue to monitor off restrain, provide supportive care 01/22: Patient clinically stable, pending placement. 01/23: follow clinically, d/c when placement available 01/24: Patient denies any acute issue, resting on bed. Pending placement 01/25: no distress, pending placement. 01/26: Patient clinically stable, pending placement. 01/27; 01/25: no distress, pending placement. 01/28: Patient clinically stable, pending placement. cont supportive care 01/29/2021: Patient is calm, no behavioral issues reported. Vital signs stable. Awaiting placement. 01/30/2021: Patient is calm, no behavioral issues reported. Vital signs stable. Awaiting placement. 01/31/2021: Patient is psychotic but calm, no behavioral issues reported. Vital signs stable. Awaiting placement. History Interval history: Patient is calm. No behavioral issues reported. No acute events reported. He is psychotic with history of schizophrenia. Vital signs stable. Awaiting placement. Hospitalist Physical - Constitutional Vitals: Temp Pulse Resp BP Pulse Ox 98.3 F 74 20 113/68 100 01/31/21 16:36 01/31/21 16:36 01/31/21 16:36 01/31/21 16:36 01/31/21 16:36 General appearance: Present: no acute distress, well-nourished - EENT Eyes: Present: PERRL, EOM intact ENT: hearing intact - Neck Neck: Present: supple - Respiratory Respiratory effort: normal Respiratory: bilateral: CTA - Cardiovascular Rhythm: regular - Extremities Extremities: No edema - Abdominal General gastrointestinal: soft, non-tender - Integumentary Integumentary: Absent: rash - Psychiatric Psychiatric: other (Psychotic) - Neurologic Neurologic: no focal deficits Results - Labs CBC & Chem 7: 01/22/21 04:47 01/22/21 04:47 Labs: Laboratory Last Values WBC 5.9 K/mm3 (4.5-11.0) 01/22/21 04:47 RBC 5.10 M/mm3 (3.65-5.03) H 01/22/21 04:47 Hgb 11.3 gm/dl (11.8-15.2) L 01/22/21 04:47 Hct 36.5 % (35.5-45.6) 01/22/21 04:47 MCV 72 fl (84-94) L 01/22/21 04:47 MCH 22 pg (28-32) L 01/22/21 04:47 MCHC 31 % (32-34) L 01/22/21 04:47 RDW 15.5 % (13.2-15.2) H 01/22/21 04:47 Plt Count 270 K/mm3 (140-440) 01/22/21 04:47 Lymph % (Auto) 6.4 % (13.4-35.0) L 12/27/20 17:34 [place] % (Auto) 3.9 % (0.0-7.3) 12/27/20 17:34 Eos % (Auto) 0.2 % (0.0-4.3) 12/27/20 17:34 Baso % (Auto) Watch Assembly Instructor 01/14/21 07:27 Lymph # (Auto) 0.7 K/mm3 (1.2-5.4) L 12/27/20 17:34 [place] # (Auto) 0.4 K/mm3 (0.0-0.8) 12/27/20 17:34 Eos # (Auto) 0.0 K/mm3 (0.0-0.4) 12/27/20 17:34 Baso # (Auto) 0.1 K/mm3 (0.0-0.1) 12/27/20 17:34 Add Manual Diff Complete 01/14/21 07:27 Total Counted 100 01/14/21 07:27 Seg Neutrophils % 89.0 % (40.0-70.0) H 12/27/20 17:34 Seg Neuts % (Manual) 76.0 % (40.0-70.0) H 01/14/21 07:27 Band Neutrophils % 1.0 % 01/14/21 07:27 Lymphocytes % (Manual) 8.0 % (13.4-35.0) L 01/14/21 07:27 Reactive Lymphs % (Man) 1.0 % 01/14/21 07:27 Monocytes % (Manual) 4.0 % (0.0-7.3) 01/14/21 07:27 Eosinophils % (Manual) 1.0 % (0.0-4.3) 01/14/21 07:27 Myelocytes % 9.0 % 01/14/21 07:27 Nucleated RBC % Not Reportable 01/14/21 07:27 Seg Neutrophils # 9.5 K/mm3 (1.8-7.7) H 12/27/20 17:34 Seg Neutrophils # Man 4.5 K/mm3 (1.8-7.7) 01/14/21 07:27 Band Neutrophils # 0.1 K/mm3 01/14/21 07:27 Lymphocytes # (Manual) 0.5 K/mm3 (1.2-5.4) L 01/14/21 07:27 Abs React Lymphs (Man) 0.1 K/mm3 01/14/21 07:27 Monocytes # (Manual) 0.2 K/mm3 (0.0-0.8) 01/14/21 07:27 Eosinophils # (Manual) 0.1 K/mm3 (0.0-0.4) 01/14/21 07:27 Basophils # (Manual) 0.0 K/mm3 (0.0-0.1) 01/14/21 07:27 Metamyelocytes # 0.0 K/mm3 01/14/21 07:27 Myelocytes # 0.5 K/mm3 01/14/21 07:27 Promyelocytes # 0.0 K/mm3 01/14/21 07:27 Blast Cells # 0.0 K/mm3 01/14/21 07:27 WBC Morphology Not Reportable 01/14/21 07:27 Hypersegmented Neuts Not Reportable 01/14/21 07:27 Hyposegmented Neuts Not Reportable 01/14/21 07:27 Hypogranular Neuts Not Reportable 01/14/21 07:27 Smudge Cells Not Reportable 01/14/21 07:27 Toxic Granulation Not Reportable 01/14/21 07:27 Toxic Vacuolation Not Reportable 01/14/21 07:27 Dohle Bodies Not Reportable 01/14/21 07:27 Pelger-Huet Anomaly Not Reportable 01/14/21 07:27 Diana Rods Not Reportable 01/14/21 07:27 Platelet Estimate Consistent w auto 01/14/21 07:27 Clumped Platelets Not Reportable 01/14/21 07:27 Plt Clumps, EDTA Not Reportable 01/14/21 07:27 Large Platelets Not Reportable 01/14/21 07:27 Giant Platelets Not Reportable 01/14/21 07:27 Platelet Satelliting Not Reportable 01/14/21 07:27 Plt Morphology Comment Not Reportable 01/14/21 07:27 RBC Morphology Not Reportable 01/14/21 07:27 Dimorphic RBCs Not Reportable 01/14/21 07:27 Polychromasia Not Reportable 01/14/21 07:27 Hypochromasia Not Reportable 01/14/21 07:27 Poikilocytosis Not Reportable 01/14/21 07:27 Anisocytosis Not Reportable 01/14/21 07:27 Microcytosis Not Reportable 01/14/21 07:27 Macrocytosis Not Reportable 01/14/21 07:27 Spherocytes Not Reportable 01/14/21 07:27 Pappenheimer Bodies Not Reportable 01/14/21 07:27 Sickle Cells Not Reportable 01/14/21 07:27 Target Cells Not Reportable 01/14/21 07:27 Tear Drop Cells Not Reportable 01/14/21 07:27 Ovalocytes Not Reportable 01/14/21 07:27 Helmet Cells Not Reportable 01/14/21 07:27 Solano-Bemiss Bodies Not Reportable 01/14/21 07:27 Shel[place] Rings Not Reportable 01/14/21 07:27 [place] Cells Not Reportable 01/14/21 07:27 Bite Cells Not Reportable 01/14/21 07:27 Crenated Cell Not Reportable 01/14/21 07:27 Elliptocytes Not Reportable 01/14/21 07:27 Acanthocytes (Spur) Not Reportable 01/14/21 07:27 Rouleaux Not Reportable 01/14/21 07:27 Hemoglobin C Crystals Not Reportable 01/14/21 07:27 Schistocytes Not Reportable 01/14/21 07:27 Malaria parasites Not Reportable 01/14/21 07:27 Johnathon Bodies Not Reportable 01/14/21 07:27 Hem Pathologist Commnt No 01/14/21 07:27 Sodium 140 mmol/L (137-145) 01/22/21 04:47 Potassium 3.8 mmol/L (3.6-5.0) 01/22/21 04:47 Chloride 101.3 mmol/L (98-107) 01/22/21 04:47 Carbon Dioxide 28 mmol/L (22-30) 01/22/21 04:47 Anion Gap 15 mmol/L 01/22/21 04:47 BUN 16 mg/dL (9-20) 01/22/21 04:47 Creatinine 0.8 mg/dL (0.8-1.3) 01/22/21 04:47 Estimated GFR > 60 ml/min 01/22/21 04:47 BUN/Creatinine Ratio 20 % 01/22/21 04:47 Glucose 103 mg/dL (75-100) H 01/22/21 04:47 POC Glucose 112 mg/dL (70-105) H 12/29/20 00:14 Lactic Acid 1.30 mmol/L (0.7-2.0) 12/28/20 08:13 Calcium 9.0 mg/dL (8.4-10.2) 01/22/21 04:47 Phosphorus 3.70 mg/dL (2.5-4.5) 12/30/20 13:13 Magnesium 2.10 mg/dL (1.7-2.3) 12/30/20 13:13 Total Bilirubin 0.50 mg/dL (0.1-1.2) 12/31/20 05:02 Direct Bilirubin < 0.2 mg/dL (0-0.2) 12/27/20 17:34 Indirect Bilirubin 0.2 mg/dL 12/27/20 17:34 AST 19 units/L (5-40) 12/31/20 05:02 ALT 12 units/L (7-56) 12/31/20 05:02 Alkaline Phosphatase 72 units/L (35-129) 12/31/20 05:02 Ammonia 21.0 umol/L (25-60) L 12/30/20 13:13 Total Protein 7.1 g/dL (6.3-8.2) 12/31/20 05:02 Albumin 3.7 g/dL (3.9-5) L 12/31/20 05:02 Albumin/Globulin Ratio 1.1 % 12/31/20 05:02 Urine Color Straw (Yellow) 12/28/20 02:15 Urine Turbidity Clear (Clear) 12/28/20 02:15 Urine pH 5.0 (5.0-7.0) 12/28/20 02:15 Ur Specific [place] 1.025 (1.003-1.030) 12/28/20 02:15 Urine Protein 100 mg/dl mg/dL (Negative) 12/28/20 02:15 Urine Glucose (UA) Negative mg/dL (Negative) 12/28/20 02:15 Urine Ketones Negative mg/dL (Negative) 12/28/20 02:15 Urine Blood Small (Negative) A 12/28/20 02:15 Urine Nitrite Negative (Negative) 12/28/20 02:15 Ur Reducing Substances Not Reportable 12/28/20 02:15 Urine Bilirubin Negative (Negative) 12/28/20 02:15 Urine Ictotest Not Reportable 12/28/20 02:15 Urine Urobilinogen < 2.0 mg/dL (<2.0) 12/28/20 02:15 Ur Leukocyte Esterase Negative (Negative) 12/28/20 02:15 Urine WBC (Auto) 3.0 /HPF (0.0-6.0) 12/28/20 02:15 Urine RBC (Auto) 4.0 /HPF (0.0-6.0) 12/28/20 02:15 U Epithel Cells (Auto) < 1.0 /HPF (0-13.0) 12/28/20 02:15 Hyaline Casts 1 /LPF 12/28/20 02:15 Granular Casts 1 /LPF 12/28/20 02:15 Urine Mucus Few /HPF 12/28/20 02:15 Salicylates < 0.3 mg/dL (2.8-20.0) L 12/27/20 17:34 Urine Opiates Screen Negative 12/27/20 17:11 Urine Methadone Screen Negative 12/27/20 17:11 Acetaminophen 5.0 ug/mL (10.0-30.0) L 12/27/20 17:34 Ur Barbiturates Screen Negative 12/27/20 17:11 Ur Phencyclidine Scrn Negative 12/27/20 17:11 Ur Amphetamines Screen Negative 12/27/20 17:11 U Benzodiazepines Scrn Negative 12/27/20 17:11 Urine Cocaine Screen Negative 12/27/20 17:11 U Marijuana (THC) Screen Negative 12/27/20 17:11 Drugs of Abuse Note Disclamer 12/27/20 17:11 Plasma/Serum Alcohol < 0.01 % (0-0.07) 12/27/20 17:34 [place]/IV: Voiding Method Toilet Active Medications - Current Medications Current Medications: Generic Name Dose Route Start Last Admin Trade Name Freq PRN Reason Stop Dose Admin Amlodipine Besylate 2.5 mg 12/29/20 10:00 01/31/21 09:25 Amlodipine 5 Mg Tab PO 2.5 mg QDAY CHELLE Administration Aspirin 81 mg 12/29/20 10:00 01/31/21 09:25 Aspirin 81 Mg Tab Chew PO 81 mg QDAY CHELLE Administration Atorvastatin Calcium 40 mg 12/29/20 22:00 01/30/21 22:37 Atorvastatin 40 Mg Tab PO 40 mg QHS CHELLE Administration Cyanocobalamin 1,000 mcg 12/31/20 15:00 01/31/21 09:25 Cyanocobalamin (Vit B-12) 1000 Mcg Tab PO 1,000 mcg QDAY CHELLE Administration Enoxaparin Sodium 40 mg 12/28/20 10:00 01/31/21 09:25 Enoxaparin 40 Mg/0.4 Ml Inj SUB-Q 40 mg QDAY CHELLE Administration Folic Acid 1 mg 01/03/21 10:00 01/31/21 09:24 Folic Acid 1 Mg Tab PO 1 mg DAILY CHELLE Administration Hydrochlorothiazide 25 mg 12/29/20 10:00 01/31/21 09:25 Hydrochlorothiazide 25 Mg Tab PO 25 mg QDAY CHELLE Administration Levetiracetam 500 mg 01/02/21 10:00 01/31/21 09:25 Levetiracetam 500 Mg Tab PO 500 mg BID CHELLE Administration Lorazepam 2 mg 12/30/20 11:00 12/30/20 22:21 Lorazepam 2 Mg/Ml Vial IV 2 mg Q1HR PRN Administration CIWA-Ar 8-15 Lorazepam 4 mg 12/30/20 11:00 Lorazepam 2 Mg/Ml Vial IV Q1HR PRN CIWA-Ar 16-25 Multivitamins/Minerals 1 each 01/03/21 10:00 01/31/21 09:25 Multivitamins,Ther W-Minerals Tab PO 1 each QDAY CHELLE Administration Risperidone 1 mg 12/31/20 22:00 01/31/21 09:26 Risperidone 1 Mg Tab PO 1 mg BID CHELLE Administration Sodium Chloride 10 ml 12/28/20 10:00 01/31/21 09:26 Sodium Chloride 0.9% 10 Ml Flush Syringe IV Not Given BID CHELLE Thiamine HCl 100 mg 01/03/21 10:00 01/31/21 09:25 Thiamine 100 Mg Tab PO 100 mg QDAY CHELLE Administration Valproic Acid 250 mg 01/04/21 13:00 01/31/21 09:24 Valproic Acid 250 Mg/5 Ml Oral Liqd PO 250 mg DAILY CHELLE Administration Nutrition/Malnutrition Assess - Dietary Evaluation Nutrition/Malnutrition Findings: Nutrition Notes Start: 01/03/21 16:36 Freq: Status: Active Protocol: Document 01/31/21 16:24 RADHA (Rec: 01/31/21 16:41 RADHA [id number]) Nutrition Notes Initial or Follow up Reassessment Current Diagnosis Hypertension Other Pertinent Diagnosis Acute metabolic encephalopathy , EtOH withdrawal, schizophrenia Current Diet Regular Diet (since L 12/29). Labs/Tests 01/22: Last labs available: Nutritionally unremarkable. Pertinent Medications 01/31: Vitamin B12, Folic Acid , multivitamins/minerals, Vit B1, others nutritionally unremarkable. Height 6 ft Weight 91.2 kg [place] Body Weight (kg) 80.90 BMI 27.2 Weight change and time frame No new weights in past week since last assessment Weight Status Overweight Subjective/Other Information 01/31 RD consult for F/U. Pt awaiting placement. MD note 01/16: pt cleared for discharge Burn Absent Trauma Absent GI Symptoms None Food Allergy No Skin Integrity/Comment no complications reported Current % PO Good (75-100%) Minimum of two criteria No #1 Nutrition Diagnosis No nutrition diagnosis at this time Comments: Pt PO intake has been consistently Good at 100%. Pt awiting for placement. Is patient on ventilator? No Is Patient Ambulatory and/or Out of Bed No REE-([facility]-confined to bed) 2116.668 Kcal/Kg value to use for calculation 20 Approximate Energy Requirements Using 1824 kcal/Kg Calculation Used for Recommendations [facility] Additional Notes Protein: 0.8-1 g/kg; 65-81 g/ Kg (from IBW). Fluids: 1 ml/kcal, or as per MD. Nutrition Intervention Change Diet Order: Continue Regular Diet. Goal #1 Maintain body weight within +/ -3% of current BWt during LOS. Goal #2 Reach and maintain acceptable chemistry lab values during LOS. Follow-Up By: 02/14/21 Additional Comments Continue to monitor food tolerance, %PO intake of meals , Hydration, and BM.
[2021-02-01] MEDS: FOLIC ACID 1 MG TAB PO SCH (08:59)
[2021-02-01] MEDS: risperiDONE 1 MG TAB PO SCH ×2 (08:59→21:16)
[2021-02-01] MEDS: hydroCHLOROthiazide 25 MG TAB PO SCH (09:00)
[2021-02-01] MEDS: ENOXAPARIN 40 MG/0.4 ML INJ SUB-Q SCH (09:00)
[2021-02-01] MEDS: MULTIVITAMINS,THER W-MINERALS TAB PO SCH (09:00)
[2021-02-01] MEDS: ASPIRIN 81 MG TAB CHEW PO SCH (09:00)
[2021-02-01] MEDS: CYANOCOBALAMIN (VIT B-12) 1000 MCG TAB PO SCH (09:00)
[2021-02-01] MEDS: VALPROIC ACID 250 MG/5 ML ORAL LIQD PO SCH (09:00)
[2021-02-01] MEDS: THIAMINE 100 MG TAB PO SCH (09:00)
[2021-02-01] MEDS: amLODIPine 5 MG TAB PO SCH (09:00)
[2021-02-01] MEDS: levETIRAcetam 500 MG TAB PO SCH ×2 (09:00→21:16)
--- NOTE | 2021-02-01 11:59 | Progress Note ---
Assessment and Plan Assessment and plan: --Acute metabolic ncephalopathy CT of the head and urine drug test-negative MRI of brain ordered unable to do due to lack of consent and patient remains confused Chest x-ray negative for acute finding Consulted neurologist --Febrile illness; in the setting of an encephalopathy on admission ID evaluated the patient, treated with empiric antibiotics, requested LP/MRI, no family available, to give consent And patient is agitated and confused requiring restraints --Hyponatremia/resolved hyponaremia mild-likely 2/2 dehydration continue IV hydration -- Hypertension Continue current antihypertensives. Monitor blood pressure PRN Hydralazine -- Possible Seizure disorder Seizure precautions, antiepileptic medications, neurology consult --?ETOH abuse thiamine, folic acid Closely monitor for alcohol withdrawal symptoms. --History of schizophrenia Continue psych medications psych consulted Closely monitor --DVT prophylaxis Subcutaneous Lovenox Daily Hospital course: 12/28: Patient now with fever of unknown origin. Still confused discussed with ID will obtain lumbar puncture. 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 MRI is pending. 12/29: Still with low grade fever, continue abx, follow cultures, LP to be done on thursday due to no Radiologist, Neurology input noted. Swallow eval ok, continue diet. start on HCTZ and Norvasc for HTN. No history on patient available here yet.] Want CT of the head read as negative during neurologist d id review any suspect an acute ischemic stroke starting the patient on aspirin 81 mg daily unfortunately this was not started yesterday not sure why but will start that today. EEG is also ordered for possible subclinical seizures. He refused an ABG. Continue restraints as 12/30: Patient still with confusion, I wonder if he has some etoh issues, will go ahead and start on CIWA protocol in addition to Banana bag. CONTINUE restraints. 12/31: I was able to obtain records from [facility] as patient was recently admitted there on December 20 he was discharged on vitamin B12 1000 mcg daily, ferrous sulfate 325 mg twice a day and Keppra 1000 mg every 12 hours in addition to rest. Do not 1 tablet 2 times a day of 2 mg each. He does have underlying schizophrenia prior history of cocaine abuse and also history of seizure disorder and severe neurocognitive disorder. His court appointed [employer] agent is Grace Padilla phone #[phone]. At the time of his discharge from [place] he was supposed to be placed in a personal penitentiary as he has a history of wandering. I am not sure if this was done. As he was brought to us "found in the [place]". Clinically he is showing some improvement but with the new information will obtain psych consultation. 01/01; could not do the MRI/LP due to his severe agitation And noncooperation, will try MRI study again tomorrow with Ativan 01/02; radiology cannot do lumbar puncture/MRI study due to patient's severe agitation requiring four-point restraints And no family/personal caregiver available to consent for the above tests when patient is calm and stable 01/03; patient continues to be agitated requiring restraints, noncooperative and unsteady for lumbar punctures and MRI Patient has no family to give consent, case management informed 01/04; patient is more calm, however gets agitated, CM informed me that patient's Michelle Padilla court appointed guardian, will call me To discuss and give consent for the tests and procedures ,waiting for patient's guardian call 01/05; still waiting for patient's guardian Indra Padilla to call and give consent for MRI/LP 01/06: Did not get a call from the patient's guardian Indra Padilla [Case management stated that patient's guardian will call me ] 01/07; patient's guardian Michelle Padilla did not contact me , CM could not reach her. No consent for LP/MRI Possible placement to [facility]. Discharge planning per case management 01/08: Patient remains restrained, continue to follow clinically. assistant front end manager working on placement 01/09: case investigator working on SNF placement, follow clinically, patient remains confused and requiring restraints. Continue empiric antibiotics per ID recommendation. 01/10: Last day of antibiotic today, pending SNF placement 01/11: Completed empiric antibiotics, pending SNF placement, patient remains confused. We will monitor off restrain, continue supportive care 01/12: Pending SNF placement, continue to monitor off restrain, provide supportive care 01/13: continue to monitor off restrain, provide supportive care. pending SNF placement 01/14: pending SNF placement, continue to monitor off restrain, provide supportive care 01/22: Patient clinically stable, pending placement. 01/23: follow clinically, d/c when placement available 01/24: Patient denies any acute issue, resting on bed. Pending placement 01/25: no distress, pending placement. 01/26: Patient clinically stable, pending placement. 01/27; 01/25: no distress, pending placement. 01/28: Patient clinically stable, pending placement. cont supportive care 01/29/2021: Patient is calm, no behavioral issues reported. Vital signs stable. Awaiting placement. 01/30/2021: Patient is calm, no behavioral issues reported. Vital signs stable. Awaiting placement. 01/31/2021: Patient is psychotic but calm, no behavioral issues reported. Vital signs stable. Awaiting placement. 01/31/2021: Patient is calm. No behavioral issues reported. All vital signs are stable. Discussed with case management regarding placement. assistant front end manager is assured me that she is calling every day and following up with [facility] in [place] History Interval history: Calm no acute complaints today on encounter. Was resting comfortably in no acute distress. Hospitalist Physical - Physical exam Narrative exam: General appearance: Present: no acute distress, well-nourished - EENT Eyes: Present: PERRL, EOM intact ENT: hearing intact - Neck Neck: Present: supple - Respiratory Respiratory effort: normal Respiratory: bilateral: CTA - Cardiovascular Rhythm: regular - Extremities Extremities: No edema - Abdominal General gastrointestinal: soft, non-tender - Integumentary Integumentary: Absent: rash - Psychiatric Psychiatric: other (Psychotic) - Neurologic Neurologic: no focal deficits - Constitutional Vitals: Temp Pulse Resp BP Pulse Ox 98.0 F 64 18 115/59 100 02/01/21 08:53 02/01/21 09:00 02/01/21 08:53 02/01/21 09:00 02/01/21 04:40 General appearance: Present: no acute distress, well-nourished Results - Labs CBC & Chem 7: 01/22/21 04:47 01/22/21 04:47 Labs: Laboratory Last Values WBC 5.9 K/mm3 (4.5-11.0) 01/22/21 04:47 RBC 5.10 M/mm3 (3.65-5.03) H 01/22/21 04:47 Hgb 11.3 gm/dl (11.8-15.2) L 01/22/21 04:47 Hct 36.5 % (35.5-45.6) 01/22/21 04:47 MCV 72 fl (84-94) L 01/22/21 04:47 MCH 22 pg (28-32) L 01/22/21 04:47 MCHC 31 % (32-34) L 01/22/21 04:47 RDW 15.5 % (13.2-15.2) H 01/22/21 04:47 Plt Count 270 K/mm3 (140-440) 01/22/21 04:47 Lymph % (Auto) 6.4 % (13.4-35.0) L 12/27/20 17:34 Hickman % (Auto) 3.9 % (0.0-7.3) 12/27/20 17:34 Eos % (Auto) 0.2 % (0.0-4.3) 12/27/20 17:34 Baso % (Auto) [place] 01/14/21 07:27 Lymph # (Auto) 0.7 K/mm3 (1.2-5.4) L 12/27/20 17:34 Hickman # (Auto) 0.4 K/mm3 (0.0-0.8) 12/27/20 17:34 Eos # (Auto) 0.0 K/mm3 (0.0-0.4) 12/27/20 17:34 Baso # (Auto) 0.1 K/mm3 (0.0-0.1) 12/27/20 17:34 Add Manual Diff Complete 01/14/21 07:27 Total Counted 100 01/14/21 07:27 Seg Neutrophils % 89.0 % (40.0-70.0) H 12/27/20 17:34 Seg Neuts % (Manual) 76.0 % (40.0-70.0) H 01/14/21 07:27 Band Neutrophils % 1.0 % 01/14/21 07:27 Lymphocytes % (Manual) 8.0 % (13.4-35.0) L 01/14/21 07:27 Reactive Lymphs % (Man) 1.0 % 01/14/21 07:27 Monocytes % (Manual) 4.0 % (0.0-7.3) 01/14/21 07:27 Eosinophils % (Manual) 1.0 % (0.0-4.3) 01/14/21 07:27 Myelocytes % 9.0 % 01/14/21 07:27 Nucleated RBC % Not Reportable 01/14/21 07:27 Seg Neutrophils # 9.5 K/mm3 (1.8-7.7) H 12/27/20 17:34 Seg Neutrophils # Man 4.5 K/mm3 (1.8-7.7) 01/14/21 07:27 Band Neutrophils # 0.1 K/mm3 01/14/21 07:27 Lymphocytes # (Manual) 0.5 K/mm3 (1.2-5.4) L 01/14/21 07:27 Abs React Lymphs (Man) 0.1 K/mm3 01/14/21 07:27 Monocytes # (Manual) 0.2 K/mm3 (0.0-0.8) 01/14/21 07:27 Eosinophils # (Manual) 0.1 K/mm3 (0.0-0.4) 01/14/21 07:27 Basophils # (Manual) 0.0 K/mm3 (0.0-0.1) 01/14/21 07:27 Metamyelocytes # 0.0 K/mm3 01/14/21 07:27 Myelocytes # 0.5 K/mm3 01/14/21 07:27 Promyelocytes # 0.0 K/mm3 01/14/21 07:27 Blast Cells # 0.0 K/mm3 01/14/21 07:27 WBC Morphology Not Reportable 01/14/21 07:27 Hypersegmented Neuts Not Reportable 01/14/21 07:27 Hyposegmented Neuts Not Reportable 01/14/21 07:27 Hypogranular Neuts Not Reportable 01/14/21 07:27 Smudge Cells Not Reportable 01/14/21 07:27 Toxic Granulation Not Reportable 01/14/21 07:27 Toxic Vacuolation Not Reportable 01/14/21 07:27 Dohle Bodies Not Reportable 01/14/21 07:27 Pelger-Huet Anomaly Not Reportable 01/14/21 07:27 Diana Rods Not Reportable 01/14/21 07:27 Platelet Estimate Consistent w auto 01/14/21 07:27 Clumped Platelets Not Reportable 01/14/21 07:27 Plt Clumps, EDTA Not Reportable 01/14/21 07:27 Large Platelets Not Reportable 01/14/21 07:27 Giant Platelets Not Reportable 01/14/21 07:27 Platelet Satelliting Not Reportable 01/14/21 07:27 Plt Morphology Comment Not Reportable 01/14/21 07:27 RBC Morphology Not Reportable 01/14/21 07:27 Dimorphic RBCs Not Reportable 01/14/21 07:27 Polychromasia Not Reportable 01/14/21 07:27 Hypochromasia Not Reportable 01/14/21 07:27 Poikilocytosis Not Reportable 01/14/21 07:27 Anisocytosis Not Reportable 01/14/21 07:27 Microcytosis Not Reportable 01/14/21 07:27 Macrocytosis Not Reportable 01/14/21 07:27 Spherocytes Not Reportable 01/14/21 07:27 Pappenheimer Bodies Not Reportable 01/14/21 07:27 Sickle Cells Not Reportable 01/14/21 07:27 Target Cells Not Reportable 01/14/21 07:27 Tear Drop Cells Not Reportable 01/14/21 07:27 Ovalocytes Not Reportable 01/14/21 07:27 Helmet Cells Not Reportable 01/14/21 07:27 [place] Bodies Not Reportable 01/14/21 07:27 [place] Rings Not Reportable 01/14/21 07:27 [place] Cells Not Reportable 01/14/21 07:27 Bite Cells Not Reportable 01/14/21 07:27 Crenated Cell Not Reportable 01/14/21 07:27 Elliptocytes Not Reportable 01/14/21 07:27 Acanthocytes (Spur) Not Reportable 01/14/21 07:27 Rouleaux Not Reportable 01/14/21 07:27 Hemoglobin C Crystals Not Reportable 01/14/21 07:27 Schistocytes Not Reportable 01/14/21 07:27 Malaria parasites Not Reportable 01/14/21 07:27 Johnathon Bodies Not Reportable 01/14/21 07:27 Hem Pathologist Commnt No 01/14/21 07:27 Sodium 140 mmol/L (137-145) 01/22/21 04:47 Potassium 3.8 mmol/L (3.6-5.0) 01/22/21 04:47 Chloride 101.3 mmol/L (98-107) 01/22/21 04:47 Carbon Dioxide 28 mmol/L (22-30) 01/22/21 04:47 Anion Gap 15 mmol/L 01/22/21 04:47 BUN 16 mg/dL (9-20) 01/22/21 04:47 Creatinine 0.8 mg/dL (0.8-1.3) 01/22/21 04:47 Estimated GFR > 60 ml/min 01/22/21 04:47 BUN/Creatinine Ratio 20 % 01/22/21 04:47 Glucose 103 mg/dL (75-100) H 01/22/21 04:47 POC Glucose 112 mg/dL (70-105) H 12/29/20 00:14 Lactic Acid 1.30 mmol/L (0.7-2.0) 12/28/20 08:13 Calcium 9.0 mg/dL (8.4-10.2) 01/22/21 04:47 Phosphorus 3.70 mg/dL (2.5-4.5) 12/30/20 13:13 Magnesium 2.10 mg/dL (1.7-2.3) 12/30/20 13:13 Total Bilirubin 0.50 mg/dL (0.1-1.2) 12/31/20 05:02 Direct Bilirubin < 0.2 mg/dL (0-0.2) 12/27/20 17:34 Indirect Bilirubin 0.2 mg/dL 12/27/20 17:34 AST 19 units/L (5-40) 12/31/20 05:02 ALT 12 units/L (7-56) 12/31/20 05:02 Alkaline Phosphatase 72 units/L (35-129) 12/31/20 05:02 Ammonia 21.0 umol/L (25-60) L 12/30/20 13:13 Total Protein 7.1 g/dL (6.3-8.2) 12/31/20 05:02 Albumin 3.7 g/dL (3.9-5) L 12/31/20 05:02 Albumin/Globulin Ratio 1.1 % 12/31/20 05:02 Urine Color Straw (Yellow) 12/28/20 02:15 Urine Turbidity Clear (Clear) 12/28/20 02:15 Urine pH 5.0 (5.0-7.0) 12/28/20 02:15 Ur Specific [place] 1.025 (1.003-1.030) 12/28/20 02:15 Urine Protein 100 mg/dl mg/dL (Negative) 12/28/20 02:15 Urine Glucose (UA) Negative mg/dL (Negative) 12/28/20 02:15 Urine Ketones Negative mg/dL (Negative) 12/28/20 02:15 Urine Blood Small (Negative) A 12/28/20 02:15 Urine Nitrite Negative (Negative) 12/28/20 02:15 Ur Reducing Substances Not Reportable 12/28/20 02:15 Urine Bilirubin Negative (Negative) 12/28/20 02:15 Urine Ictotest Not Reportable 12/28/20 02:15 Urine Urobilinogen < 2.0 mg/dL (<2.0) 12/28/20 02:15 Ur Leukocyte Esterase Negative (Negative) 12/28/20 02:15 Urine WBC (Auto) 3.0 /HPF (0.0-6.0) 12/28/20 02:15 Urine RBC (Auto) 4.0 /HPF (0.0-6.0) 12/28/20 02:15 U Epithel Cells (Auto) < 1.0 /HPF (0-13.0) 12/28/20 02:15 Hyaline Casts 1 /LPF 12/28/20 02:15 Granular Casts 1 /LPF 12/28/20 02:15 Urine Mucus Few /HPF 12/28/20 02:15 Salicylates < 0.3 mg/dL (2.8-20.0) L 12/27/20 17:34 Urine Opiates Screen Negative 12/27/20 17:11 Urine Methadone Screen Negative 12/27/20 17:11 Acetaminophen 5.0 ug/mL (10.0-30.0) L 12/27/20 17:34 Ur Barbiturates Screen Negative 12/27/20 17:11 Ur Phencyclidine Scrn Negative 12/27/20 17:11 Ur Amphetamines Screen Negative 12/27/20 17:11 U Benzodiazepines Scrn Negative 12/27/20 17:11 Urine Cocaine Screen Negative 12/27/20 17:11 U Marijuana (THC) Screen Negative 12/27/20 17:11 Drugs of Abuse Note Disclamer 12/27/20 17:11 Plasma/Serum Alcohol < 0.01 % (0-0.07) 12/27/20 17:34 [place]/IV: Voiding Method Toilet Active Medications - Current Medications Current Medications: Generic Name Dose Route Start Last Admin Trade Name Freq PRN Reason Stop Dose Admin Amlodipine Besylate 2.5 mg 12/29/20 10:00 02/01/21 09:00 Amlodipine 5 Mg Tab PO 2.5 mg QDAY CHELLE Administration Aspirin 81 mg 12/29/20 10:00 02/01/21 09:00 Aspirin 81 Mg Tab Chew PO 81 mg QDAY CHELLE Administration Atorvastatin Calcium 40 mg 12/29/20 22:00 01/31/21 21:54 Atorvastatin 40 Mg Tab PO 40 mg QHS CHELLE Administration Cyanocobalamin 1,000 mcg 12/31/20 15:00 02/01/21 09:00 Cyanocobalamin (Vit B-12) 1000 Mcg Tab PO 1,000 mcg QDAY CHELLE Administration Enoxaparin Sodium 40 mg 12/28/20 10:00 02/01/21 09:00 Enoxaparin 40 Mg/0.4 Ml Inj SUB-Q 40 mg QDAY CHELLE Administration Folic Acid 1 mg 01/03/21 10:00 02/01/21 08:59 Folic Acid 1 Mg Tab PO 1 mg DAILY CHELLE Administration Hydrochlorothiazide 25 mg 12/29/20 10:00 02/01/21 09:00 Hydrochlorothiazide 25 Mg Tab PO 25 mg QDAY CHELLE Administration Levetiracetam 500 mg 01/02/21 10:00 02/01/21 09:00 Levetiracetam 500 Mg Tab PO 500 mg BID CHELLE Administration Lorazepam 2 mg 12/30/20 11:00 12/30/20 22:21 Lorazepam 2 Mg/Ml Vial IV 2 mg Q1HR PRN Administration CIWA-Ar 8-15 Lorazepam 4 mg 12/30/20 11:00 Lorazepam 2 Mg/Ml Vial IV Q1HR PRN CIWA-Ar 16-25 Multivitamins/Minerals 1 each 01/03/21 10:00 02/01/21 09:00 Multivitamins,Ther W-Minerals Tab PO 1 each QDAY CHELLE Administration Risperidone 1 mg 12/31/20 22:00 02/01/21 08:59 Risperidone 1 Mg Tab PO 1 mg BID CHELLE Administration Sodium Chloride 10 ml 12/28/20 10:00 02/01/21 09:00 Sodium Chloride 0.9% 10 Ml Flush Syringe IV Not Given BID CHELLE Thiamine HCl 100 mg 01/03/21 10:00 02/01/21 09:00 Thiamine 100 Mg Tab PO 100 mg QDAY CHELLE Administration Valproic Acid 250 mg 01/04/21 13:00 02/01/21 09:00 Valproic Acid 250 Mg/5 Ml Oral Liqd PO 250 mg DAILY CHELLE Administration Nutrition/Malnutrition Assess - Dietary Evaluation Nutrition/Malnutrition Findings: Nutrition Notes Start: 01/03/21 1 6:36 Freq: Status: Active Protocol: Document 01/31/21 16:24 RADHA (Rec: 01/31/21 16:41 RADHA [id number]) Nutrition Notes Initial or Follow up Reassessment Current Diagnosis Hypertension Other Pertinent Diagnosis Acute metabolic encephalopathy , EtOH withdrawal, schizophrenia Current Diet Regular Diet (since L 12/29). Labs/Tests 01/22: Last labs available: Nutritionally unremarkable. Pertinent Medications 01/31: Vitamin B12, Folic Acid , multivitamins/minerals, Vit B1, others nutritionally unremarkable. Height 6 ft Weight 91.2 kg [place] Body Weight (kg) 80.90 BMI 27.2 Weight change and time frame No new weights in past week since last assessment Weight Status Overweight Subjective/Other Information 01/31 consult for F/U. Pt awaiting placement. MD note 01/16: pt cleared for discharge Burn Absent Trauma Absent GI Symptoms None Food Allergy No Skin Integrity/Comment no complications reported Current % PO Good (75-100%) Minimum of two criteria No #1 Nutrition Diagnosis No nutrition diagnosis at this time Comments: Pt PO intake has been consistently Good at 100%. Pt awiting for placement. Is patient on ventilator? No Is Patient Ambulatory and/or Out of Bed No REE-([facility]-confined to bed) 2116.668 Kcal/Kg value to use for calculation 20 Approximate Energy Requirements Using 1824 kcal/Kg Calculation Used for Recommendations [facility] Additional Notes Protein: 0.8-1 g/kg; 65-81 g/ Kg (from IBW). Fluids: 1 ml/kcal, or as per MD. Nutrition Intervention Change Diet Order: Continue Regular Diet. Goal #1 Maintain body weight within +/ -3% of current BWt during LOS. Goal #2 Reach and maintain acceptable chemistry lab values during LOS. Follow-Up By: 02/14/21 Additional Comments Continue to monitor food tolerance, %PO intake of meals , Hydration, and BM.
--- NOTE | 2021-02-02 08:29 | Progress Note ---
Assessment and Plan Assessment and plan: Assessment and plan: --Acute metabolic Encephalopathy (resolving) CT of the head and urine drug test-negative MRI of brain ordered unable to do due to lack of consent intiall. improved Chest x-ray negative for acute finding Consulted neurologist Patient appears to be at baseline --Febrile illness; in the setting of an encephalopathy on admission ID evaluated the patient, treated with empiric antibiotics, requested LP/MRI, no family available, to give consent And patient is agitated and confused requiring restraints --Hyponatremia/resolved hyponaremia mild-likely 2/2 dehydration continue IV hydration -- Hypertension Continue current antihypertensives. Monitor blood pressure PRN Hydralazine -- Possible Seizure disorder Seizure precautions, antiepileptic medications, neurology consult --?ETOH abuse thiamine, folic acid Closely monitor for alcohol withdrawal symptoms. --History of schizophrenia Continue psych medications psych consulted Closely monitor --DVT prophylaxis Subcutaneous Lovenox Daily Hospital course: 12/28: Patient now with fever of unknown origin. Still confused discussed with ID will obtain lumbar puncture. 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 MRI is pending. 12/29: Still with low grade fever, continue abx, follow cultures, LP to be done on thursday due to no Radiologist, Neurology input noted. Swallow eval ok, continue diet. start on HCTZ and Norvasc for HTN. No history on patient available here yet.] Want CT of the head read as negative during neurologist did review any suspect an acute ischemic stroke starting the patient on aspirin 81 mg daily unfortunately this was not started yesterday not sure why but will start that today. EEG is also ordered for possible subclinical seizures. He refused an ABG. Continue restraints as 12/30: Patient still with confusion, I wonder if he has some etoh issues, will go ahead and start on CIWA protocol in addition to Banana bag. CONTINUE restraints. 12/31: I was able to obtain records from [facility] as patient was recently admitted there on December 20 he was discharged on vitamin B12 1000 mcg daily, ferrous sulfate 325 mg twice a day and Keppra 1000 mg every 12 hours in addition to rest. Do not 1 tablet 2 times a day of 2 mg each. He does have underlying schizophrenia prior history of cocaine abuse and also history of seizure disorder and severe neurocognitive disorder. His court appointed [employer] agent is Grace Padilla phone #[phone]. At the time of his discharge from [place] he was supposed to be placed in a personal intermediate as he has a history of wandering. I am not sure if this was done. As he was brought to us "found in the ag[place]irre". Clinically he is showing some improvement but with the new information will obtain psych consultation. 01/01; could not do the MRI/LP due to his severe agitation And noncooperation, will try MRI study again tomorrow with Ativan 01/02; radiology cannot do lumbar puncture/MRI study due to patient's severe agitation requiring four-point restraints And no family/sales person available to consent for the above tests when patient is calm and stable 01/03; patient continues to be agitated requiring restraints, noncooperative and unsteady for lumbar punctures and MRI Patient has no family to give consent, case management informed 01/04; patient is more calm, however gets agitated, CM informed me that patient's Michelle Padilla court appointed guardian, will call me To discuss and give consent for the tests and procedures ,waiting for patient's guardian call 01/05; still waiting for patient's guardian Indra Padilla to call and give consent for MRI/LP 01/06: Did not get a call from the patient's guardian Indra Padilla [Case management stated that patient's guardian will call me ] 01/07; patient's guardian Michelle Padilla did not contact me , CM could not reach her. No consent for LP/MRI Possible placement to [facility]. Discharge planning per case management 01/08: Patient remains restrained, continue to follow clinically. credit risk manager working on placement 01/09: porter sample case working on SNF placement, follow clinically, patient remains confused and requiring restraints. Continue empiric antibiotics per ID recommendation. 01/10: Last day of antibiotic today, pending SNF placement 01/11: Completed empiric antibiotics, pending SNF placement, patient remains confused. We will monitor off restrain, continue supportive care 01/12: Pending SNF placement, continue to monitor off restrain, provide supportive care 01/13: continue to monitor off restrain, provide supportive care. pending SNF placement 01/14: pending SNF placement, continue to monitor off restrain, provide suppo rtive care 01/22: Patient clinically stable, pending placement. 01/23: follow clinically, d/c when placement available 01/24: Patient denies any acute issue, resting on bed. Pending placement 01/25: no distress, pending placement. 01/26: Patient clinically stable, pending placement. 01/27; 01/25: no distress, pending placement. 01/28: Patient clinically stable, pending placement. cont supportive care 01/29/2021: Patient is calm, no behavioral issues reported. Vital signs stable. Awaiting placement. 01/30/2021: Patient is calm, no behavioral issues reported. Vital signs stable. Awaiting placement. 01/31/2021: Patient is psychotic but calm, no behavioral issues reported. Vital signs stable. Awaiting placement. 02/01/2021: Patient is calm. No behavioral issues reported. All vital signs are stable. Discussed with case management regarding placement. credit risk manager is assured me that she is calling every day and following up with [facility] in [place] 02/02/21: Awaiting placement History Interval history: Calm no acute complaints today on encounter. Was resting comfortably in no acute distress. Hospitalist Physical - Physical exam Narrative exam: General appearance: Present: no acute distress, well-nourished - EENT Eyes: Present: PERRL, EOM intact ENT: hearing intact - Neck Neck: Present: supple - Respiratory Respiratory effort: normal Respiratory: bilateral: CTA - Cardiovascular Rhythm: regular - Extremities Extremities: No edema - Abdominal General gastrointestinal: soft, non-tender - Integumentary Integumentary: Absent: rash - Psychiatric Psychiatric: other (Psychotic) - Neurologic Neurologic: no focal deficits - Constitutional Vitals: Temp Pulse Resp BP Pulse Ox 98.1 F 82 20 119/59 96 02/02/21 07:42 02/02/21 07:42 02/02/21 07:42 02/02/21 07:42 02/02/21 07:42 General appearance: Present: no acute distress, well-nourished Results - Labs CBC & Chem 7: 01/22/21 04:47 01/22/21 04:47 Labs: Laboratory Last Values WBC 5.9 K/mm3 (4.5-11.0) 01/22/21 04:47 RBC 5.10 M/mm3 (3.65-5.03) H 01/22/21 04:47 Hgb 11.3 gm/dl (11.8-15.2) L 01/22/21 04:47 Hct 36.5 % (35.5-45.6) 01/22/21 04:47 MCV 72 fl (84-94) L 01/22/21 04:47 MCH 22 pg (28-32) L 01/22/21 04:47 MCHC 31 % (32-34) L 01/22/21 04:47 RDW 15.5 % (13.2-15.2) H 01/22/21 04:47 Plt Count 270 K/mm3 (140-440) 01/22/21 04:47 Lymph % (Auto) 6.4 % (13.4-35.0) L 12/27/20 17:34 [place] % (Auto) 3.9 % (0.0-7.3) 12/27/20 17:34 Eos % (Auto) 0.2 % (0.0-4.3) 12/27/20 17:34 Baso % (Auto) Radio Maintainer 01/14/21 07:27 Lymph # (Auto) 0.7 K/mm3 (1.2-5.4) L 12/27/20 17:34 [place] # (Auto) 0.4 K/mm3 (0.0-0.8) 12/27/20 17:34 Eos # (Auto) 0.0 K/mm3 (0.0-0.4) 12/27/20 17:34 Baso # (Auto) 0.1 K/mm3 (0.0-0.1) 12/27/20 17:34 Add Manual Diff Complete 01/14/21 07:27 Total Counted 100 01/14/21 07:27 Seg Neutrophils % 89.0 % (40.0-70.0) H 12/27/20 17:34 Seg Neuts % (Manual) 76.0 % (40.0-70.0) H 01/14/21 07:27 Band Neutrophils % 1.0 % 01/14/21 07:27 Lymphocytes % (Manual) 8.0 % (13.4-35.0) L 01/14/21 07:27 Reactive Lymphs % (Man) 1.0 % 01/14/21 07:27 Monocytes % (Manual) 4.0 % (0.0-7.3) 01/14/21 07:27 Eosinophils % (Manual) 1.0 % (0.0-4.3) 01/14/21 07:27 Myelocytes % 9.0 % 01/14/21 07:27 Nucleated RBC % Not Reportable 01/14/21 07:27 Seg Neutrophils # 9.5 K/mm3 (1.8-7.7) H 12/27/20 17:34 Seg Neutrophils # Man 4.5 K/mm3 (1.8-7.7) 01/14/21 07:27 Band Neutrophils # 0.1 K/mm3 01/14/21 07:27 Lymphocytes # (Manual) 0.5 K/mm3 (1.2-5.4) L 01/14/21 07:27 Abs React Lymphs (Man) 0.1 K/mm3 01/14/21 07:27 Monocytes # (Manual) 0.2 K/mm3 (0.0-0.8) 01/14/21 07:27 Eosinophils # (Manual) 0.1 K/mm3 (0.0-0.4) 01/14/21 07:27 Basophils # (Manual) 0.0 K/mm3 (0.0-0.1) 01/14/21 07:27 Metamyelocytes # 0.0 K/mm3 01/14/21 07:27 Myelocytes # 0.5 K/mm3 01/14/21 07:27 Promyelocytes # 0.0 K/mm3 01/14/21 07:27 Blast Cells # 0.0 K/mm3 01/14/21 07:27 WBC Morphology Not Reportable 01/14/21 07:27 Hypersegmented Neuts Not Reportable 01/14/21 07:27 Hyposegmented Neuts Not Reportable 01/14/21 07:27 Hypogranular Neuts Not Reportable 01/14/21 07:27 Smudge Cells Not Reportable 01/14/21 07:27 Toxic Granulation Not Reportable 01/14/21 07:27 Toxic Vacuolation Not Reportable 01/14/21 07:27 Dohle Bodies Not Reportable 01/14/21 07:27 Pelger-Huet Anomaly Not Reportable 01/14/21 07:27 Diana Rods Not Reportable 01/14/21 07:27 Platelet Estimate Consistent w auto 01/14/21 07:27 Clumped Platelets Not Reportable 01/14/21 07:27 Plt Clumps, EDTA Not Reportable 01/14/21 07:27 Large Platelets Not Reportable 01/14/21 07:27 Giant Platelets Not Reportable 01/14/21 07:27 Platelet Satelliting Not Reportable 01/14/21 07:27 Plt Morphology Comment Not Reportable 01/14/21 07:27 RBC Morphology Not Reportable 01/14/21 07:27 Dimorphic RBCs Not Reportable 01/14/21 07:27 Polychromasia Not Reportable 01/14/21 07:27 Hypochromasia Not Reportable 01/14/21 07:27 Poikilocytosis Not Reportable 01/14/21 07:27 Anisocytosis Not Reportable 01/14/21 07:27 Microcytosis Not Reportable 01/14/21 07:27 Macrocytosis Not Reportable 01/14/21 07:27 Spherocytes Not Reportable 01/14/21 07:27 Pappenheimer Bodies Not Reportable 01/14/21 07:27 Sickle Cells Not Reportable 01/14/21 07:27 Target Cells Not Reportable 01/14/21 07:27 Tear Drop Cells Not Reportable 01/14/21 07:27 Ovalocytes Not Reportable 01/14/21 07:27 Helmet Cells Not Reportable 01/14/21 07:27 [place] Bodies Not Reportable 01/14/21 07:27 [place] Rings Not Reportable 01/14/21 07:27 Aakash Cells Not Reportable 01/14/21 07:27 Bite Cells Not Reportable 01/14/21 07:27 Crenated Cell Not Reportable 01/14/21 07:27 Elliptocytes Not Reportable 01/14/21 07:27 Acanthocytes (Spur) Not Reportable 01/14/21 07:27 Rouleaux Not Reportable 01/14/21 07:27 Hemoglobin C Crystals Not Reportable 01/14/21 07:27 Schistocytes Not Reportable 01/14/21 07:27 Malaria parasites Not Reportable 01/14/21 07:27 Johnathon Bodies Not Reportable 01/14/21 07:27 Hem Pathologist Commnt No 01/14/21 07:27 Sodium 140 mmol/L (137-145) 01/22/21 04:47 Potassium 3.8 mmol/L (3.6-5.0) 01/22/21 04:47 Chloride 101.3 mmol/L (98-107) 01/22/21 04:47 Carbon Dioxide 28 mmol/L (22-30) 01/22/21 04:47 Anion Gap 15 mmol/L 01/22/21 04:47 BUN 16 mg/dL (9-20) 01/22/21 04:47 Creatinine 0.8 mg/dL (0.8-1.3) 01/22/21 04:47 Estimated GFR > 60 ml/min 01/22/21 04:47 BUN/Creatinine Ratio 20 % 01/22/21 04:47 Glucose 103 mg/dL (75-100) H 01/22/21 04:47 POC Glucose 112 mg/dL (70-105) H 12/29/20 00:14 Lactic Acid 1.30 mmol/L (0.7-2.0) 12/28/20 08:13 Calcium 9.0 mg/dL (8.4-10.2) 01/22/21 04:47 Phosphorus 3.70 mg/dL (2.5-4.5) 12/30/20 13:13 Magnesium 2.10 mg/dL (1.7-2.3) 12/30/20 13:13 Total Bilirubin 0.50 mg/dL (0.1-1.2) 12/31/20 05:02 Direct Bilirubin < 0.2 mg/dL (0-0.2) 12/27/20 17:34 Indirect Bilirubin 0.2 mg/dL 12/27/20 17:34 AST 19 units/L (5-40) 12/31/20 05:02 ALT 12 units/L (7-56) 12/31/20 05:02 Alkaline Phosphatase 72 units/L (35-129) 12/31/20 05:02 Ammonia 21.0 umol/L (25-60) L 12/30/20 13:13 Total Protein 7.1 g/dL (6.3-8.2) 12/31/20 05:02 Albumin 3.7 g/dL (3.9-5) L 12/31/20 05:02 Albumin/Globulin Ratio 1.1 % 12/31/20 05:02 Urine Color Straw (Yellow) 12/28/20 02:15 Urine Turbidity Clear (Clear) 12/28/20 02:15 Urine pH 5.0 (5.0-7.0) 12/28/20 02:15 Ur Specific [place] 1.025 (1.003-1.030) 12/28/20 02:15 Urine Protein 100 mg/dl mg/dL (Negative) 12/28/20 02:15 Urine Glucose (UA) Negative mg/dL (Negative) 12/28/20 02:15 Urine Ketones Negative mg/dL (Negative) 12/28/20 02:15 Urine Blood Small (Negative) A 12/28/20 02:15 Urine Nitrite Negative (Negative) 12/28/20 02:15 Ur Reducing Substances Not Reportable 12/28/20 02:15 Urine Bilirubin Negative (Negative) 12/28/20 02:15 Urine Ictotest Not Reportable 12/28/20 02:15 Urine Urobilinogen < 2.0 mg/dL (<2.0) 12/28/20 02:15 Ur Leukocyte Esterase Negative (Negative) 12/28/20 02:15 Urine WBC (Auto) 3.0 /HPF (0.0-6.0) 12/28/20 02:15 Urine RBC (Auto) 4.0 /HPF (0.0-6.0) 12/28/20 02:15 U Epithel Cells (Auto) < 1.0 /HPF (0-13.0) 12/28/20 02:15 Hyaline Casts 1 /LPF 12/28/20 02:15 Granular Casts 1 /LPF 12/28/20 02:15 Urine Mucus Few /HPF 12/28/20 02:15 Salicylates < 0.3 mg/dL (2.8-20.0) L 12/27/20 17:34 Urine Opiates Screen Negative 12/27/20 17:11 Urine Methadone Screen Negative 12/27/20 17:11 Acetaminophen 5.0 ug/mL (10.0-30.0) L 12/27/20 17:34 Ur Barbiturates Screen Negative 12/27/20 17:11 Ur Phencyclidine Scrn Negative 12/27/20 17:11 Ur Amphetamines Screen Negative 12/27/20 17:11 U Benzodiazepines Scrn Negative 12/27/20 17:11 Urine Cocaine Screen Negative 12/27/20 17:11 U Marijuana (THC) Screen Negative 12/27/20 17:11 Drugs of Abuse Note Disclamer 12/27/20 17:11 Plasma/Serum Alcohol < 0.01 % (0-0.07) 12/27/20 17:34 [place]/IV: Voiding Method Toilet Active Medications - Current Medications Current Medications: Generic Name Dose Route Start Last Admin Trade Name Freq PRN Reason Stop Dose Admin Amlodipine Besylate 2.5 mg 12/29/20 10:00 02/01/21 09:00 Amlodipine 5 Mg Tab PO 2.5 mg QDAY CHELLE Administration Aspirin 81 mg 12/29/20 10:00 02/01/21 09:00 Aspirin 81 Mg Tab Chew PO 81 mg QDAY CHELLE Administration Atorvastatin Calcium 40 mg 12/29/20 22:00 02/01/21 21:16 Atorvastatin 40 Mg Tab PO 40 mg QHS CHELLE Administration Cyanocobalamin 1,000 mcg 12/31/20 15:00 02/01/21 09:00 Cyanocobalamin (Vit B-12) 1000 Mcg Tab PO 1,000 mcg QDAY CHELLE Administration Enoxaparin Sodium 40 mg 12/28/20 10:00 02/01/21 09:00 Enoxaparin 40 Mg/0.4 Ml Inj SUB-Q 40 mg QDAY CHELLE Administration Folic Acid 1 mg 01/03/21 10:00 02/01/21 08:59 Folic Acid 1 Mg Tab PO 1 mg DAILY CHELLE Administration Hydrochlorothiazide 25 mg 12/29/20 10:00 02/01/21 09:00 Hydrochlorothiazide 25 Mg Tab PO 25 mg QDAY CHELLE Administration Levetiracetam 500 mg 01/02/21 10:00 02/01/21 21:16 Levetiracetam 500 Mg Tab PO 500 mg BID CHELLE Administration Lorazepam 2 mg 12/30/20 11:00 12/30/20 22:21 Lorazepam 2 Mg/Ml Vial IV 2 mg Q1HR PRN Administration CIWA-Ar 8-15 Lorazepam 4 mg 12/30/20 11:00 Lorazepam 2 Mg/Ml Vial IV Q1HR PRN CIWA-Ar 16-25 Multivitamins/Minerals 1 each 01/03/21 10:00 02/01/21 09:00 Multivitamins,Ther W-Minerals Tab PO 1 each QDAY CHELLE Administration Risperidone 1 mg 12/31/20 22:00 02/01/21 21:16 Risperidone 1 Mg Tab PO 1 mg BID CHELLE Administration Sodium Chloride 10 ml 12/28/20 10:00 02/01/21 21:16 Sodium Chloride 0.9% 10 Ml Flush Syringe IV Not Given BID CHELLE Thiamine HCl 100 mg 01/03/21 10:00 02/01/21 09:00 Thiamine 100 Mg Tab PO 100 mg QDAY CHELLE Administration Valproic Acid 250 mg 01/04/21 13:00 02/01/21 09:00 Valproic Acid 250 Mg/5 Ml Oral Liqd PO 250 mg DAILY CHELLE Administration Nutrition/Malnutrition Assess - Dietary Evaluation Nutrition/Malnutrition Findings: Nutrition Notes Start: 01/03/21 16:36 Freq: Status: Active Protocol: Document 01/31/21 16:24 RADHA (Rec: 01/31/21 16:41 RADHA [id number]) Nutrition Notes Initial or Follow up Reassessment Current Diagnosis Hypertension Other Pertinent Diagnosis Acute metabolic encephalopathy , EtOH withdrawal, schizophrenia Current Diet Regular Diet (since L 12/29). Labs/Tests 01/22: Last labs available: Nutritionally unremarkable. Pertinent Medications 01/31: Vitamin B12, Folic Acid , multivitamins/minerals, Vit B1, others nutritionally unremarkable. Height 6 ft Weight 91.2 kg [place] Body Weight (kg) 80.90 BMI 27.2 Weight change and time frame No new weights in past week since last assessment Weight Status Overweight Subjective/Other Information 01/31 consult for F/U. Pt awaiting placement. MD note 01/16: pt cleared for discharge Burn Absent Trauma Absent GI Symptoms None Food Allergy No Skin Integrity/Comment no complications reported Current % PO Good (75-100%) Minimum of two criteria No #1 Nutrition Diagnosis No nutrition diagnosis at this time Comments: Pt PO intake has been consistently Good at 100%. Pt awiting for placement. Is patient on ventilator? No Is Patient Ambulatory and/or Out of Bed No REE-([facility]-confined to bed) 2116.668 Kcal/Kg value to use for calculation 20 Approximate Energy Requirements Using 1824 kcal/Kg Calculation Used for Recommendations [facility] Additional Notes Protein: 0.8-1 g/kg; 65-81 g/ Kg (from IBW). Fluids: 1 ml/kcal, or as per MD. Nutrition Intervention Change Diet Order: Continue Regular Diet. Goal #1 Maintain body weight within +/ -3% of current BWt during LOS. Goal #2 Reach and maintain acceptable chemistry lab values during LOS. Follow-Up By: 02/14/21 Additional Comments Continue to monitor food tolerance, %PO intake of meals , Hydration, and BM.
[2021-02-02] MEDS: ASPIRIN 81 MG TAB CHEW PO SCH (10:38)
[2021-02-02] MEDS: hydroCHLOROthiazide 25 MG TAB PO SCH (10:38)
[2021-02-02] MEDS: MULTIVITAMINS,THER W-MINERALS TAB PO SCH (10:38)
[2021-02-02] MEDS: CYANOCOBALAMIN (VIT B-12) 1000 MCG TAB PO SCH (10:38)
[2021-02-02] MEDS: amLODIPine 5 MG TAB PO SCH (10:38)
[2021-02-02] MEDS: FOLIC ACID 1 MG TAB PO SCH (10:38)
[2021-02-02] MEDS: ENOXAPARIN 40 MG/0.4 ML INJ SUB-Q SCH (10:39)
[2021-02-02] MEDS: levETIRAcetam 500 MG TAB PO SCH ×2 (10:39→21:22)
[2021-02-02] MEDS: risperiDONE 1 MG TAB PO SCH ×2 (10:39→21:23)
[2021-02-02] MEDS: THIAMINE 100 MG TAB PO SCH (10:39)
[2021-02-02] MEDS: VALPROIC ACID 250 MG/5 ML ORAL LIQD PO SCH (10:39)
--- NOTE | 2021-02-03 09:05 | Progress Note ---
Assessment and Plan Assessment and plan: Assessment and plan: --Acute metabolic Encephalopathy (resolving) CT of the head and urine drug test-negative MRI of brain ordered unable to do due to lack of consent intiall. improved Chest x-ray negative for acute finding Consulted neurologist Patient appears to be at baseline --Febrile illness; in the setting of an encephalopathy on admission ID evaluated the patient, treated with empiric antibiotics, requested LP/MRI, no family available, to give consent And patient is agitated and confused requiring restraints --Hyponatremia/resolved hyponaremia mild-likely 2/2 dehydration continue IV hydration -- Hypertension Continue current antihypertensives. Monitor blood pressure PRN Hydralazine -- Possible Seizure disorder Seizure precautions, antiepileptic medications, neurology consult --?ETOH abuse thiamine, folic acid Closely monitor for alcohol withdrawal symptoms. --History of schizophrenia Continue psych medications psych consulted Closely monitor --DVT prophylaxis Subcutaneous Lovenox Daily Hospital course: 12/28: Patient now with fever of unknown origin. Still confused discussed with ID will obtain lumbar puncture. 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 MRI is pending. 12/29: Still with low grade fever, continue abx, follow cultures, LP to be done on thursday due to no Radiologist, Neurology input noted. Swallow eval ok, continue diet. start on HCTZ and Norvasc for HTN. No history on patient available here yet.] Want CT of the head read as negative during neurologist did review any suspect an acute ischemic stroke starting the patient on aspirin 81 mg daily unfortunately this was not started yesterday not sure why but will start that today. EEG is also ordered for possible subclinical seizures. He refused an ABG. Continue restraints as 12/30: Patient still with confusion, I wonder if he has some etoh issues, will go ahead and start on CIWA protocol in addition to Banana bag. CONTINUE restraints. 12/31: I was able to obtain records from [facility] as patient was recently admitted there on December 20 he was discharged on vitamin B12 1000 mcg daily, ferrous sulfate 325 mg twice a day and Keppra 1000 mg every 12 hours in addition to rest. Do not 1 tablet 2 times a day of 2 mg each. He does have underlying schizophrenia prior history of cocaine abuse and also history of seizure disorder and severe neurocognitive disorder. His court appointed [employer] agent is Grace Padilla phone #[phone]. At the time of his discharge from [place] he was supposed to be placed in a personal long-term as he has a history of wandering. I am not sure if this was done. As he was brought to us "found in the [place]". Clinically he is showing some improvement but with the new information will obtain psych consultation. 01/01; could not do the MRI/LP due to his severe agitation And noncooperation, will try MRI study again tomorrow with Ativan 01/02; radiology cannot do lumbar puncture/MRI study due to patient's severe agitation requiring four-point restraints And no family/contact lens inspector available to consent for the above tests when patient is calm and stable 01/03; patient continues to be agitated requiring restraints, noncooperative and unsteady for lumbar punctures and MRI Patient has no family to give consent, case management informed 01/04; patient is more calm, however gets agitated, CM informed me that patient's Michelle Padilla court appointed guardian, will call me To discuss and give consent for the tests and procedures ,waiting for patient's guardian call 01/05; still waiting for patient's guardian Indra Padilla to call and give consent for MRI/LP 01/06: Did not get a call from the patient's guardian Indra Padilla [Case management stated that patient's guardian will call me ] 01/07; patient's guardian Michelle Padilla did not contact me , CM could not reach her. No consent for LP/MRI Possible placement to [facility]. Discharge planning per case management 01/08: Patient remains restrained, continue to follow clinically. sales project manager working on placement 01/09: case management manager working on SNF placement, follow clinically, patient remains confused and requiring restraints. Continue empiric antibiotics per ID recommendation. 01/10: Last day of antibiotic today, pending SNF placement 01/11: Completed empiric antibiotics, pending SNF placement, patient remains confused. We will monitor off restrain, continue supportive care 01/12: Pending SNF placement, continue to monitor off restrain, provide supportive care 01/13: continue to monitor off restrain, provide supportive care. pending SNF placement 01/14: pending SNF placement, continue to monitor off restrain, provide suppo rtive care 01/22: Patient clinically stable, pending placement. 01/23: follow clinically, d/c when placement available 01/24: Patient denies any acute issue, resting on bed. Pending placement 01/25: no distress, pending placement. 01/26: Patient clinically stable, pending placement. 01/27; 01/25: no distress, pending placement. 01/28: Patient clinically stable, pending placement. cont supportive care 01/29/2021: Patient is calm, no behavioral issues reported. Vital signs stable. Awaiting placement. 01/30/2021: Patient is calm, no behavioral issues reported. Vital signs stable. Awaiting placement. 01/31/2021: Patient is psychotic but calm, no behavioral issues reported. Vital signs stable. Awaiting placement. 02/01/2021: Patient is calm. No behavioral issues reported. All vital signs are stable. Discussed with case management regarding placement. sales project manager is assured me that she is calling every day and following up with [facility] in [place] 02/02/21: Awaiting placement 02/03: awaiting placement. History Interval history: Calm no acute complaints today on encounter. NO acute complaints. Resting comfortably. Hospitalist Physical - Physical exam Narrative exam: General appearance: Present: no acute distress, well-nourished - EENT Eyes: Present: PERRL, EOM intact ENT: hearing intact - Neck Neck: Present: supple - Respiratory Respiratory effort: normal Respiratory: bilateral: CTA - Cardiovascular Rhythm: regular - Extremities Extremities: No edema - Abdominal General gastrointestinal: soft, non-tender - Integumentary Integumentary: Absent: rash - Psychiatric Psychiatric: other (Psychotic) - Neurologic Neurologic: no focal deficits - Constitutional Vitals: Temp Pulse Resp BP Pulse Ox 98.3 F 68 18 116/70 99 02/03/21 04:02 02/03/21 04:02 02/03/21 04:02 02/03/21 04:02 02/03/21 07:58 General appearance: Present: no acute distress, well-nourished Results - Labs CBC & Chem 7: 01/22/21 04:47 01/22/21 04:47 Labs: Laboratory Last Values WBC 5.9 K/mm3 (4.5-11.0) 01/22/21 04:47 RBC 5.10 M/mm3 (3.65-5.03) H 01/22/21 04:47 Hgb 11.3 gm/dl (11.8-15.2) L 01/22/21 04:47 Hct 36.5 % (35.5-45.6) 01/22/21 04:47 MCV 72 fl (84-94) L 01/22/21 04:47 MCH 22 pg (28-32) L 01/22/21 04:47 MCHC 31 % (32-34) L 01/22/21 04:47 RDW 15.5 % (13.2-15.2) H 01/22/21 04:47 Plt Count 270 K/mm3 (140-440) 01/22/21 04:47 Lymph % (Auto) 6.4 % (13.4-35.0) L 12/27/20 17:34 [place] % (Auto) 3.9 % (0.0-7.3) 12/27/20 17:34 Eos % (Auto) 0.2 % (0.0-4.3) 12/27/20 17:34 Baso % (Auto) Director Of Strategic Alliances 01/14/21 07:27 Lymph # (Auto) 0.7 K/mm3 (1.2-5.4) L 12/27/20 17:34 [place] # (Auto) 0.4 K/mm3 (0.0-0.8) 12/27/20 17:34 Eos # (Auto) 0.0 K/mm3 (0.0-0.4) 12/27/20 17:34 Baso # (Auto) 0.1 K/mm3 (0.0-0.1) 12/27/20 17:34 Add Manual Diff Complete 01/14/21 07:27 Total Counted 100 01/14/21 07:27 Seg Neutrophils % 89.0 % (40.0-70.0) H 12/27/20 17:34 Seg Neuts % (Manual) 76.0 % (40.0-70.0) H 01/14/21 07:27 Band Neutrophils % 1.0 % 01/14/21 07:27 Lymphocytes % (Manual) 8.0 % (13.4-35.0) L 01/14/21 07:27 Reactive Lymphs % (Man) 1.0 % 01/14/21 07:27 Monocytes % (Manual) 4.0 % (0.0-7.3) 01/14/21 07:27 Eosinophils % (Manual) 1.0 % (0.0-4.3) 01/14/21 07:27 Myelocytes % 9.0 % 01/14/21 07:27 Nucleated RBC % Not Reportable 01/14/21 07:27 Seg Neutrophils # 9.5 K/mm3 (1.8-7.7) H 12/27/20 17:34 Seg Neutrophils # Man 4.5 K/mm3 (1.8-7.7) 01/14/21 07:27 Band Neutrophils # 0.1 K/mm3 01/14/21 07:27 Lymphocytes # (Manual) 0.5 K/mm3 (1.2-5.4) L 01/14/21 07:27 Abs React Lymphs (Man) 0.1 K/mm3 01/14/21 07:27 Monocytes # (Manual) 0.2 K/mm3 (0.0-0.8) 01/14/21 07:27 Eosinophils # (Manual) 0.1 K/mm3 (0.0-0.4) 01/14/21 07:27 Basophils # (Manual) 0.0 K/mm3 (0.0-0.1) 01/14/21 07:27 Metamyelocytes # 0.0 K/mm3 01/14/21 07:27 Myelocytes # 0.5 K/mm3 01/14/21 07:27 Promyelocytes # 0.0 K/mm3 01/14/21 07:27 Blast Cells # 0.0 K/mm3 01/14/21 07:27 WBC Morphology Not Reportable 01/14/21 07:27 Hypersegmented Neuts Not Reportable 01/14/21 07:27 Hyposegmented Neuts Not Reportable 01/14/21 07:27 Hypogranular Neuts Not Reportable 01/14/21 07:27 Smudge Cells Not Reportable 01/14/21 07:27 Toxic Granulation Not Reportable 01/14/21 07:27 Toxic Vacuolation Not Reportable 01/14/21 07:27 Dohle Bodies Not Reportable 01/14/21 07:27 Pelger-Huet Anomaly Not Reportable 01/14/21 07:27 Diana Rods Not Reportable 01/14/21 07:27 Platelet Estimate Consistent w auto 01/14/21 07:27 Clumped Platelets Not Reportable 01/14/21 07:27 Plt Clumps, EDTA Not Reportable 01/14/21 07:27 Large Platelets Not Reportable 01/14/21 07:27 Giant Platelets Not Reportable 01/14/21 07:27 Platelet Satelliting Not Reportable 01/14/21 07:27 Plt Morphology Comment Not Reportable 01/14/21 07:27 RBC Morphology Not Reportable 01/14/21 07:27 Dimorphic RBCs Not Reportable 01/14/21 07:27 Polychromasia Not Reportable 01/14/21 07:27 Hypochromasia Not Reportable 01/14/21 07:27 Poikilocytosis Not Reportable 01/14/21 07:27 Anisocytosis Not Reportable 01/14/21 07:27 Microcytosis Not Reportable 01/14/21 07:27 Macrocytosis Not Reportable 01/14/21 07:27 Spherocytes Not Reportable 01/14/21 07:27 Pappenheimer Bodies Not Reportable 01/14/21 07:27 Sickle Cells Not Reportable 01/14/21 07:27 Target Cells Not Reportable 01/14/21 07:27 Tear Drop Cells Not Reportable 01/14/21 07:27 Ovalocytes Not Reportable 01/14/21 07:27 Helmet Cells Not Reportable 01/14/21 07:27 [place] Bodies Not Reportable 01/14/21 07:27 [place] Rings Not Reportable 01/14/21 07:27 [place] Cells Not Reportable 01/14/21 07:27 Bite Cells Not Reportable 01/14/21 07:27 Crenated Cell Not Reportable 01/14/21 07:27 Elliptocytes Not Reportable 01/14/21 07:27 Acanthocytes (Spur) Not Reportable 01/14/21 07:27 Rouleaux Not Reportable 01/14/21 07:27 Hemoglobin C Crystals Not Reportable 01/14/21 07:27 Schistocytes Not Reportable 01/14/21 07:27 Malaria parasites Not Reportable 01/14/21 07:27 [place] Bodies Not Reportable 01/14/21 07:27 Hem Pathologist Commnt No 01/14/21 07:27 Sodium 140 mmol/L (137-145) 10/26/21 04:47 Potassium 3.8 mmol/L (3.6-5.0) 01/22/21 04:47 Chloride 101.3 mmol/L (98-107) 01/22/21 04:47 Carbon Dioxide 28 mmol/L (22-30) 01/22/21 04:47 Anion Gap 15 mmol/L 01/22/21 04:47 BUN 16 mg/dL (9-20) 01/22/21 04:47 Creatinine 0.8 mg/dL (0.8-1.3) 01/22/21 04:47 Estimated GFR > 60 ml/min 01/22/21 04:47 BUN/Creatinine Ratio 20 % 01/22/21 04:47 Glucose 103 mg/dL (75-100) H 01/22/21 04:47 POC Glucose 112 mg/dL (70-105) H 12/29/20 00:14 Lactic Acid 1.30 mmol/L (0.7-2.0) 12/28/20 08:13 Calcium 9.0 mg/dL (8.4-10.2) 01/22/21 04:47 Phosphorus 3.70 mg/dL (2.5-4.5) 12/30/20 13:13 Magnesium 2.10 mg/dL (1.7-2.3) 12/30/20 13:13 Total Bilirubin 0.50 mg/dL (0.1-1.2) 12/31/20 05:02 Direct Bilirubin < 0.2 mg/dL (0-0.2) 12/27/20 17:34 Indirect Bilirubin 0.2 mg/dL 12/27/20 17:34 AST 19 units/L (5-40) 12/31/20 05:02 ALT 12 units/L (7-56) 12/31/20 05:02 Alkaline Phosphatase 72 units/L (35-129) 12/31/20 05:02 Ammonia 21.0 umol/L (25-60) L 12/30/20 13:13 Total Protein 7.1 g/dL (6.3-8.2) 12/31/20 05:02 Albumin 3.7 g/dL (3.9-5) L 12/31/20 05:02 Albumin/Globulin Ratio 1.1 % 12/31/20 05:02 Urine Color Straw (Yellow) 12/28/20 02:15 Urine Turbidity Clear (Clear) 12/28/20 02:15 Urine pH 5.0 (5.0-7.0) 12/28/20 02:15 Ur Specific [place] 1.025 (1.003-1.030) 12/28/20 02:15 Urine Protein 100 mg/dl mg/dL (Negative) 12/28/20 02:15 Urine Glucose (UA) Negative mg/dL (Negative) 12/28/20 02:15 Urine Ketones Negative mg/dL (Negative) 12/28/20 02:15 Urine Blood Small (Negative) A 12/28/20 02:15 Urine Nitrite Negative (Negative) 12/28/20 02:15 Ur Reducing Substances Not Reportable 12/28/20 02:15 Urine Bilirubin Negative (Negative) 12/28/20 02:15 Urine Ictotest Not Reportable 12/28/20 02:15 Urine Urobilinogen < 2.0 mg/dL (<2.0) 12/28/20 02:15 Ur Leukocyte Esterase Negative (Negative) 12/28/20 02:15 Urine WBC (Auto) 3.0 /HPF (0.0-6.0) 12/28/20 02:15 Urine RBC (Auto) 4.0 /HPF (0.0-6.0) 12/28/20 02:15 U Epithel Cells (Auto) < 1.0 /HPF (0-13.0) 12/28/20 02:15 Hyaline Casts 1 /LPF 12/28/20 02:15 Granular Casts 1 /LPF 12/28/20 02:15 Urine Mucus Few /HPF 12/28/20 02:15 Salicylates < 0.3 mg/dL (2.8-20.0) L 12/27/20 17:34 Urine Opiates Screen Negative 12/27/20 17:11 Urine Methadone Screen Negative 12/27/20 17:11 Acetaminophen 5.0 ug/mL (10.0-30.0) L 12/27/20 17:34 Ur Barbiturates Screen Negative 12/27/20 17:11 Ur Phencyclidine Scrn Negative 12/27/20 17:11 Ur Amphetamines Screen Negative 12/27/20 17:11 U Benzodiazepines Scrn Negative 12/27/20 17:11 Urine Cocaine Screen Negative 12/27/20 17:11 U Marijuana (THC) Screen Negative 12/27/20 17:11 Drugs of Abuse Note Disclamer 12/27/20 17:11 Plasma/Serum Alcohol < 0.01 % (0-0.07) 12/27/20 17:34 [place]/IV: Voiding Method Toilet Active Medications - Current Medications Current Medications: Generic Name Dose Route Start Last Admin Trade Name Freq PRN Reason Stop Dose Admin Amlodipine Besylate 2.5 mg 12/29/20 10:00 02/02/21 10:38 Amlodipine 5 Mg Tab PO 2.5 mg QDAY CHELLE Administration Aspirin 81 mg 12/29/20 10:00 02/02/21 10:38 Aspirin 81 Mg Tab Chew PO 81 mg QDAY CHELLE Administration Atorvastatin Calcium 40 mg 12/29/20 22:00 02/02/21 21:22 Atorvastatin 40 Mg Tab PO 40 mg QHS CHELLE Administration Cyanocobalamin 1,000 mcg 12/31/20 15:00 02/02/21 10:38 Cyanocobalamin (Vit B-12) 1000 Mcg Tab PO 1,000 mcg QDAY CHELLE Administration Enoxaparin Sodium 40 mg 12/28/20 10:00 02/02/21 10:39 Enoxaparin 40 Mg/0.4 Ml Inj SUB-Q 40 mg QDAY CHELLE Administration Folic Acid 1 mg 01/03/21 10:00 02/02/21 10:38 Folic Acid 1 Mg Tab PO 1 mg DAILY CHELLE Administration Hydrochlorothiazide 25 mg 12/29/20 10:00 02/02/21 10:38 Hydrochlorothiazide 25 Mg Tab PO 25 mg QDAY CHELLE Administration Levetiracetam 500 mg 01/02/21 10:00 02/02/21 21:22 Levetiracetam 500 Mg Tab PO 500 mg BID CHELLE Administration Lorazepam 2 mg 12/30/20 11:00 12/30/20 22:21 Lorazepam 2 Mg/Ml Vial IV 2 mg Q1HR PRN Administration CIWA-Ar 8-15 Lorazepam 4 mg 12/30/20 11:00 Lorazepam 2 Mg/Ml Vial IV Q1HR PRN CIWA-Ar 16-25 Multivitamins/Minerals 1 each 01/03/21 10:00 02/02/21 10:38 Multivitamins,Ther W-Minerals Tab PO 1 each QDAY CHELLE Administration Risperidone 1 mg 12/31/20 22:00 02/02/21 21:23 Risperidone 1 Mg Tab PO 1 mg BID CHELLE Administration Sodium Chloride 10 ml 12/28/20 10:00 02/02/21 21:25 Sodium Chloride 0.9% 10 Ml Flush Syringe IV Not Given BID CHELLE Thiamine HCl 100 mg 01/03/21 10:00 02/02/21 10:39 Thiamine 100 Mg Tab PO 100 mg QDAY CHELLE Administration Valproic Acid 250 mg 01/04/21 13:00 02/02/21 10:39 Valproic Acid 250 Mg/5 Ml Oral Liqd PO 250 mg DAILY CHELLE Administration Nutrition/Malnutrition Assess - Dietary Evaluation Nutrition/Malnutrition Findings: Nutrition Notes Start: 01/03/21 16:36 Freq: Status: Active Protocol: Document 01/31/21 16:24 RADHA (Rec: 01/31/21 16:41 RADHA [id number]) Nutrition Notes Initial or Follow up Reassessment Current Diagnosis Hypertension Other Pertinent Diagnosis Acute metabolic encephalopathy , EtOH withdrawal, schizophrenia Current Diet Regular Diet (since L 12/29). Labs/Tests 01/22: Last labs available: Nutritionally unremarkable. Pertinent Medications 01/31: Vitamin B12, Folic Acid , multivitamins/minerals, Vit B1, others nutritionally unremarkable. Height 6 ft Weight 91.2 kg [place] Body Weight (kg) 80.90 BMI 27.2 Weight change and time frame No new weights in past week since last assessment Weight Status Overweight Subjective/Other Information 01/31 consult for F/U. Pt awaiting placement. note 01/16: pt cleared for discharge Burn Absent Trauma Absent GI Symptoms None Food Allergy No Skin Integrity/Comment no complications reported Current % PO Good (75-100%) Minimum of two criteria No #1 Nutrition Diagnosis No nutrition diagnosis at this time Comments: Pt PO intake has been consistently Good at 100%. Pt awiting for placement. Is patient on ventilator? No Is Patient Ambulatory and/or Out of Bed No REE-([facility]-confined to bed) 2116.668 Kcal/Kg value to use for calculation 20 Approximate Energy Requirements Using 1824 kcal/Kg Calculation Used for Recommendations [facility] Additional Notes Protein: 0.8-1 g/kg; 65-81 g/ Kg (from IBW). Fluids: 1 ml/kcal, or as per MD. Nutrition Intervention Change Diet Order: Continue Regular Diet. Goal #1 Maintain body weight within +/ -3% of current BWt during LOS. Goal #2 Reach and maintain acceptable chemistry lab values during LOS. Follow-Up By: 02/14/21 Additional Comments Continue to monitor food tolerance, %PO intake of meals , Hydration, and BM.
[2021-02-03] MEDS: hydroCHLOROthiazide 25 MG TAB PO SCH (10:18)
[2021-02-03] MEDS: THIAMINE 100 MG TAB PO SCH (10:18)
[2021-02-03] MEDS: risperiDONE 1 MG TAB PO SCH ×2 (10:18→21:49)
[2021-02-03] MEDS: CYANOCOBALAMIN (VIT B-12) 1000 MCG TAB PO SCH (10:18)
[2021-02-03] MEDS: VALPROIC ACID 250 MG/5 ML ORAL LIQD PO SCH (10:18)
[2021-02-03] MEDS: amLODIPine 5 MG TAB PO SCH (10:18)
[2021-02-03] MEDS: ENOXAPARIN 40 MG/0.4 ML INJ SUB-Q SCH (10:18)
[2021-02-03] MEDS: MULTIVITAMINS,THER W-MINERALS TAB PO SCH (10:18)
[2021-02-03] MEDS: levETIRAcetam 500 MG TAB PO SCH ×2 (10:18→21:49)
[2021-02-03] MEDS: ASPIRIN 81 MG TAB CHEW PO SCH (10:18)
[2021-02-03] MEDS: FOLIC ACID 1 MG TAB PO SCH (10:18)
[2021-02-04] MEDS: hydroCHLOROthiazide 25 MG TAB PO SCH (09:01)
[2021-02-04] MEDS: CYANOCOBALAMIN (VIT B-12) 1000 MCG TAB PO SCH (09:01)
[2021-02-04] MEDS: VALPROIC ACID 250 MG/5 ML ORAL LIQD PO SCH (09:01)
[2021-02-04] MEDS: ASPIRIN 81 MG TAB CHEW PO SCH (09:01)
[2021-02-04] MEDS: MULTIVITAMINS,THER W-MINERALS TAB PO SCH (09:01)
[2021-02-04] MEDS: amLODIPine 5 MG TAB PO SCH (09:01)
[2021-02-04] MEDS: ENOXAPARIN 40 MG/0.4 ML INJ SUB-Q SCH (09:01)
[2021-02-04] MEDS: FOLIC ACID 1 MG TAB PO SCH (09:01)
[2021-02-04] MEDS: levETIRAcetam 500 MG TAB PO SCH ×2 (09:02→21:41)
[2021-02-04] MEDS: THIAMINE 100 MG TAB PO SCH (09:02)
[2021-02-04] MEDS: risperiDONE 1 MG TAB PO SCH ×2 (09:02→21:41)
--- NOTE | 2021-02-04 16:05 | Progress Note ---
Assessment and Plan Assessment and plan: Assessment and plan: --Acute metabolic Encephalopathy (resolving) CT of the head and urine drug test-negative MRI of brain ordered unable to do due to lack of consent intiall. improved Chest x-ray negative for acute finding Consulted neurologist Patient appears to be at baseline --Febrile illness; in the setting of an encephalopathy on admission ID evaluated the patient, treated with empiric antibiotics, requested LP/MRI, no family available, to give consent And patient is agitated and confused requiring restraints --Hyponatremia/resolved hyponaremia mild-likely 2/2 dehydration continue IV hydration -- Hypertension Continue current antihypertensives. Monitor blood pressure PRN Hydralazine -- Possible Seizure disorder Seizure precautions, antiepileptic medications, neurology consult --?ETOH abuse thiamine, folic acid Closely monitor for alcohol withdrawal symptoms. --History of schizophrenia Continue psych medications psych consulted Closely monitor --DVT prophylaxis Subcutaneous Lovenox Daily Hospital course: 12/28: Patient now with fever of unknown origin. Still confused discussed with ID will obtain lumbar puncture. 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 MRI is pending. 12/29: Still with low grade fever, continue abx, follow cultures, LP to be done on thursday due to no Radiologist, Neurology input noted. Swallow eval ok, continue diet. start on HCTZ and Norvasc for HTN. No history on patient available here yet.] Want CT of the head read as negative during neurologist did review any suspect an acute ischemic stroke starting the patient on aspirin 81 mg daily unfortunately this was not started yesterday not sure why but will start that today. EEG is also ordered for possible subclinical seizures. He refused an ABG. Continue restraints as 12/30: Patient still with confusion, I wonder if he has some etoh issues, will go ahead and start on CIWA protocol in addition to Banana bag. CONTINUE restraints. 12/31: I was able to obtain records from [facility] as patient was recently admitted there on December 20 he was discharged on vitamin B12 1000 mcg daily, ferrous sulfate 325 mg twice a day and Keppra 1000 mg every 12 hours in addition to rest. Do not 1 tablet 2 times a day of 2 mg each. He does have underlying schizophrenia prior history of cocaine abuse and also history of seizure disorder and severe neurocognitive disorder. His court appointed [employer] agent is Grace Padilla phone #[phone]. At the time of his discharge from [place] he was supposed to be placed in a personal correction as he has a history of wandering. I am not sure if this was done. As he was brought to us "found in the aguirre". Clinically he is showing some improvement but with the new information will obtain psych consultation. 01/01; could not do the MRI/LP due to his severe agitation And noncooperation, will try MRI study again tomorrow with Ativan 01/02; radiology cannot do lumbar puncture/MRI study due to patient's severe agitation requiring four-point restraints And no family/salesperson men's and boys' clothing available to consent for the above tests when patient is calm and stable 01/03; patient continues to be agitated requiring restraints, noncooperative and unsteady for lumbar punctures and MRI Patient has no family to give consent, case management informed 01/04; patient is more calm, however gets agitated, CM informed me that patient's Michelle Padilla court appointed guardian, will call me To discuss and give consent for the tests and procedures ,waiting for patient's guardian call 01/05; still waiting for patient's guardian Indra Padilla to call and give consent for MRI/LP 01/06: Did not get a call from the patient's guardian Indra Padilla [Case management stated that patient's guardian will call me ] 01/07; patient's guardian Michelle Padilla did not contact me , CM could not reach her. No consent for LP/MRI Possible placement to [facility]. Discharge planning per case management 01/08: Patient remains restrained, continue to follow clinically. medical office manager working on placement 01/09: case finisher working on SNF placement, follow clinically, patient remains confused and requiring restraints. Continue empiric antibiotics per ID recommendation. 01/10: Last day of antibiotic today, pending SNF placement 01/11: Completed empiric antibiotics, pending SNF placement, patient remains confused. We will monitor off restrain, continue supportive care 01/12: Pending SNF placement, continue to monitor off restrain, provide supportive care 01/13: continue to monitor off restrain, provide supportive care. pending SNF placement 01/14: pending SNF placement, continue to monitor off restrain, provide suppo rtive care 01/22: Patient clinically stable, pending placement. 01/23: follow clinically, d/c when placement available 01/24: Patient denies any acute issue, resting on bed. Pending placement 01/25: no distress, pending placement. 01/26: Patient clinically stable, pending placement. 01/27; 01/25: no distress, pending placement. 01/28: Patient clinically stable, pending placement. cont supportive care 01/29/2021: Patient is calm, no behavioral issues reported. Vital signs stable. Awaiting placement. 01/30/2021: Patient is calm, no behavioral issues reported. Vital signs stable. Awaiting placement. 01/31/2021: Patient is psychotic but calm, no behavioral issues reported. Vital signs stable. Awaiting placement. 02/01/2021: Patient is calm. No behavioral issues reported. All vital signs are stable. Discussed with case management regarding placement. medical office manager is assured me that she is calling every day and following up with [facility] in [place] 02/02/21: Awaiting placement 02/03: awaiting placement. 02/04: awaiting placement. discussed in CM rounds this AM. SW/CM working to finalize placement. History Interval history: Calm no acute complaints today on encounter. NO acute complaints. Resting comfortably. Hospitalist Physical - Physical exam Narrative exam: General appearance: Present: no acute distress, well-nourished - EENT Eyes: Present: PERRL, EOM intact ENT: hearing intact - Neck Neck: Present: supple - Respiratory Respiratory effort: normal Respiratory: bilateral: CTA - Cardiovascular Rhythm: regular - Extremities Extremities: No edema - Abdominal General gastrointestinal: soft, non-tender - Integumentary Integumentary: Absent: rash - Psychiatric Psychiatric: other (Psychotic) - Neurologic Neurologic: no focal deficits - Constitutional Vitals: Temp Pulse Resp BP Pulse Ox 98.7 F 60 18 121/70 99 02/04/21 09:41 02/04/21 04:50 02/04/21 10:00 02/04/21 09:41 02/04/21 10:00 General appearance: Present: no acute distress, well-nourished Results - Labs CBC & Chem 7: 01/22/21 04:47 01/22/21 04:47 Labs: Laboratory Last Values WBC 5.9 K/mm3 (4.5-11.0) 01/22/21 04:47 RBC 5.10 M/mm3 (3.65-5.03) H 01/22/21 04:47 Hgb 11.3 gm/dl (11.8-15.2) L 01/22/21 04:47 Hct 36.5 % (35.5-45.6) 01/22/21 04:47 MCV 72 fl (84-94) L 01/22/21 04:47 MCH 22 pg (28-32) L 01/22/21 04:47 MCHC 31 % (32-34) L 01/22/21 04:47 RDW 15.5 % (13.2-15.2) H 01/22/21 04:47 Plt Count 270 K/mm3 (140-440) 01/22/21 04:47 Lymph % (Auto) 6.4 % (13.4-35.0) L 12/27/20 17:34 [place] % (Auto) 3.9 % (0.0-7.3) 12/27/20 17:34 Eos % (Auto) 0.2 % (0.0-4.3) 12/27/20 17:34 Baso % (Auto) Director Of Extension Work 01/14/21 07:27 Lymph # (Auto) 0.7 K/mm3 (1.2-5.4) L 12/27/20 17:34 [place] # (Auto) 0.4 K/mm3 (0.0-0.8) 12/27/20 17:34 Eos # (Auto) 0.0 K/mm3 (0.0-0.4) 12/27/20 17:34 Baso # (Auto) 0.1 K/mm3 (0.0-0.1) 12/27/20 17:34 Add Manual Diff Complete 01/14/21 07:27 Total Counted 100 01/14/21 07:27 Seg Neutrophils % 89.0 % (40.0-70.0) H 12/27/20 17:34 Seg Neuts % (Manual) 76.0 % (40.0-70.0) H 01/14/21 07:27 Band Neutrophils % 1.0 % 01/14/21 07:27 Lymphocytes % (Manual) 8.0 % (13.4-35.0) L 01/14/21 07:27 Reactive Lymphs % (Man) 1.0 % 01/14/21 07:27 Monocytes % (Manual) 4.0 % (0.0-7.3) 01/14/21 07:27 Eosinophils % (Manual) 1.0 % (0.0-4.3) 01/14/21 07:27 Myelocytes % 9.0 % 01/14/21 07:27 Nucleated RBC % Not Reportable 01/14/21 07:27 Seg Neutrophils # 9.5 K/mm3 (1.8-7.7) H 12/27/20 17:34 Seg Neutrophils # Man 4.5 K/mm3 (1.8-7.7) 01/14/21 07:27 Band Neutrophils # 0.1 K/mm3 01/14/21 07:27 Lymphocytes # (Manual) 0.5 K/mm3 (1.2-5.4) L 01/14/21 07:27 Abs React Lymphs (Man) 0.1 K/mm3 01/14/21 07:27 Monocytes # (Manual) 0.2 K/mm3 (0.0-0.8) 01/14/21 07:27 Eosinophils # (Manual) 0.1 K/mm3 (0.0-0.4) 01/14/21 07:27 Basophils # (Manual) 0.0 K/mm3 (0.0-0.1) 01/14/21 07:27 Metamyelocytes # 0.0 K/mm3 01/14/21 07:27 Myelocytes # 0.5 K/mm3 01/14/21 07:27 Promyelocytes # 0.0 K/mm3 01/14/21 07:27 Blast Cells # 0.0 K/mm3 01/14/21 07:27 WBC Morphology Not Reportable 01/14/21 07:27 Hypersegmented Neuts Not Reportable 01/14/21 07:27 Hyposegmented Neuts Not Reportable 01/14/21 07:27 Hypogranular Neuts Not Reportable 01/14/21 07:27 Smudge Cells Not Reportable 01/14/21 07:27 Toxic Granulation Not Reportable 01/14/21 07:27 Toxic Vacuolation Not Reportable 01/14/21 07:27 Dohle Bodies Not Reportable 01/14/21 07:27 Pelger-Huet Anomaly Not Reportable 01/14/21 07:27 Diana Rods Not Reportable 01/14/21 07:27 Platelet Estimate Consistent w auto 01/14/21 07:27 Clumped Platelets Not Reportable 01/14/21 07:27 Plt Clumps, EDTA Not Reportable 01/14/21 07:27 Large Platelets Not Reportable 01/14/21 07:27 Giant Platelets Not Reportable 01/14/21 07:27 Platelet Satelliting Not Reportable 01/14/21 07:27 Plt Morphology Comment Not Reportable 01/14/21 07:27 RBC Morphology Not Reportable 01/14/21 07:27 Dimorphic RBCs Not Reportable 01/14/21 07:27 Polychromasia Not Reportable 01/14/21 07:27 Hypochromasia Not Reportable 01/14/21 07:27 Poikilocytosis Not Reportable 01/14/21 07:27 Anisocytosis Not Reportable 01/14/21 07:27 Microcytosis Not Reportable 01/14/21 07:27 Macrocytosis Not Reportable 01/14/21 07:27 Spherocytes Not Reportable 01/14/21 07:27 Pappenheimer Bodies Not Reportable 01/14/21 07:27 Sickle Cells Not Reportable 01/14/21 07:27 Target Cells Not Reportable 01/14/21 07:27 Tear Drop Cells Not Reportable 01/14/21 07:27 Ovalocytes Not Reportable 01/14/21 07:27 Helmet Cells Not Reportable 01/14/21 07:27 Solano-Mallard Bodies Not Reportable 01/14/21 07:27 [place] Rings Not Reportable 01/14/21 07:27 Lincoln Cells Not Reportable 01/14/21 07:27 Bite Cells Not Reportable 01/14/21 07:27 Crenated Cell Not Reportable 01/14/21 07:27 Elliptocytes Not Reportable 01/14/21 07:27 Acanthocytes (Spur) Not Reportable 01/14/21 07:27 Rouleaux Not Reportable 01/14/21 07:27 Hemoglobin C Crystals Not Reportable 01/14/21 07:27 Schistocytes Not Reportable 01/14/21 07:27 Malaria parasites Not Reportable 01/14/21 07:27 Johnathon Bodies Not Reportable 01/14/21 07:27 Hem Pathologist Commnt No 01/14/21 07:27 Sodium 140 mmol/L (137-145) 01/22/21 04:47 Potassium 3.8 mmol/L (3.6-5.0) 01/22/21 04:47 Chloride 101.3 mmol/L (98-107) 01/22/21 04:47 Carbon Dioxide 28 mmol/L (22-30) 01/22/21 04:47 Anion Gap 15 mmol/L 01/22/21 04:47 BUN 16 mg/dL (9-20) 01/22/21 04:47 Creatinine 0.8 mg/dL (0.8-1.3) 01/22/21 04:47 Estimated GFR > 60 ml/min 01/22/21 04:47 BUN/Creatinine Ratio 20 % 01/22/21 04:47 Glucose 103 mg/dL (75-100) H 01/22/21 04:47 POC Glucose 112 mg/dL (70-105) H 12/29/20 00:14 Lactic Acid 1.30 mmol/L (0.7-2.0) 12/28/20 08:13 Calcium 9.0 mg/dL (8.4-10.2) 01/22/21 04:47 Phosphorus 3.70 mg/dL (2.5-4.5) 12/30/20 13:13 Magnesium 2.10 mg/dL (1.7-2.3) 12/30/20 13:13 Total Bilirubin 0.50 mg/dL (0.1-1.2) 12/31/20 05:02 Direct Bilirubin < 0.2 mg/dL (0-0.2) 12/27/20 17:34 Indirect Bilirubin 0.2 mg/dL 12/27/20 17:34 AST 19 units/L (5-40) 12/31/20 05:02 ALT 12 units/L (7-56) 12/31/20 05:02 Alkaline Phosphatase 72 units/L (35-129) 12/31/20 05:02 Ammonia 21.0 umol/L (25-60) L 12/30/20 13:13 Total Protein 7.1 g/dL (6.3-8.2) 12/31/20 05:02 Albumin 3.7 g/dL (3.9-5) L 12/31/20 05:02 Albumin/Globulin Ratio 1.1 % 12/31/20 05:02 Urine Color Straw (Yellow) 12/28/20 02:15 Urine Turbidity Clear (Clear) 12/28/20 02:15 Urine pH 5.0 (5.0-7.0) 12/28/20 02:15 Ur Specific [place] 1.025 (1.003-1.030) 12/28/20 02:15 Urine Protein 100 mg/dl mg/dL (Negative) 12/28/20 02:15 Urine Glucose (UA) Negative mg/dL (Negative) 12/28/20 02:15 Urine Ketones Negative mg/dL (Negative) 12/28/20 02:15 Urine Blood Small (Negative) A 12/28/20 02:15 Urine Nitrite Negative (Negative) 12/28/20 02:15 Ur Reducing Substances Not Reportable 12/28/20 02:15 Urine Bilirubin Negative (Negative) 12/28/20 02:15 Urine Ictotest Not Reportable 12/28/20 02:15 Urine Urobilinogen < 2.0 mg/dL (<2.0) 12/28/20 02:15 Ur Leukocyte Esterase Negative (Negative) 12/28/20 02:15 Urine WBC (Auto) 3.0 /HPF (0.0-6.0) 12/28/20 02:15 Urine RBC (Auto) 4.0 /HPF (0.0-6.0) 12/28/20 02:15 U Epithel Cells (Auto) < 1.0 /HPF (0-13.0) 12/28/20 02:15 Hyaline Casts 1 /LPF 12/28/20 02:15 Granular Casts 1 /LPF 12/28/20 02:15 Urine Mucus Few /HPF 12/28/20 02:15 Salicylates < 0.3 mg/dL (2.8-20.0) L 12/27/20 17:34 Urine Opiates Screen Negative 12/27/20 17:11 Urine Methadone Screen Negative 12/27/20 17:11 Acetaminophen 5.0 ug/mL (10.0-30.0) L 12/27/20 17:34 Ur Barbiturates Screen Negative 12/27/20 17:11 Ur Phencyclidine Scrn Negative 12/27/20 17:11 Ur Amphetamines Screen Negative 12/27/20 17:11 U Benzodiazepines Scrn Negative 12/27/20 17:11 Urine Cocaine Screen Negative 12/27/20 17:11 U Marijuana (THC) Screen Negative 12/27/20 17:11 Drugs of Abuse Note Disclamer 12/27/20 17:11 Plasma/Serum Alcohol < 0.01 % (0-0.07) 12/27/20 17:34 [place]/IV: Voiding Method Toilet Active Medications - Current Medications Current Medications: Generic Name Dose Route Start Last Admin Trade Name Freq PRN Reason Stop Dose Admin Amlodipine Besylate 2.5 mg 12/29/20 10:00 02/04/21 09:01 Amlodipine 5 Mg Tab PO 2.5 mg QDAY CHELLE Administration Aspirin 81 mg 12/29/20 10:00 02/04/21 09:01 Aspirin 81 Mg Tab Chew PO 81 mg QDAY CHELLE Administration Atorvastatin Calcium 40 mg 12/29/20 22:00 02/03/21 21:49 Atorvastatin 40 Mg Tab PO 40 mg QHS CHELLE Administration Cyanocobalamin 1,000 mcg 12/31/20 15:00 02/04/21 09:01 Cyanocobalamin (Vit B-12) 1000 Mcg Tab PO 1,000 mcg QDAY CHELLE Administration Enoxaparin Sodium 40 mg 12/28/20 10:00 02/04/21 09:01 Enoxaparin 40 Mg/0.4 Ml Inj SUB-Q 40 mg QDAY CHELLE Administration Folic Acid 1 mg 01/03/21 10:00 02/04/21 09:01 Folic Acid 1 Mg Tab PO 1 mg DAILY CHELLE Administration Hydrochlorothiazide 25 mg 12/29/20 10:00 02/04/21 09:01 Hydrochlorothiazide 25 Mg Tab PO 25 mg QDAY CHELLE Administration Levetiracetam 500 mg 01/02/21 10:00 02/04/21 09:02 Levetiracetam 500 Mg Tab PO 500 mg BID CHELLE Administration Lorazepam 2 mg 12/30/20 11:00 12/30/20 22:21 Lorazepam 2 Mg/Ml Vial IV 2 mg Q1HR PRN Administration CIWA-Ar 8-15 Lorazepam 4 mg 12/30/20 11:00 Lorazepam 2 Mg/Ml Vial IV Q1HR PRN CIWA-Ar 16-25 Multivitamins/Minerals 1 each 01/03/21 10:00 02/04/21 09:01 Multivitamins,Ther W-Minerals Tab PO 1 each QDAY CHELLE Administration Risperidone 1 mg 12/31/20 22:00 02/04/21 09:02 Risperidone 1 Mg Tab PO 1 mg BID CHELLE Administration Sodium Chloride 10 ml 12/28/20 10:00 02/04/21 09:03 Sodium Chloride 0.9% 10 Ml Flush Syringe IV Not Given BID CHELLE Thiamine HCl 100 mg 01/03/21 10:00 02/04/21 09:02 Thiamine 100 Mg Tab PO 100 mg QDAY CHELLE Administration Nutrition/Malnutrition Assess - Dietary Evaluation Nutrition/Malnutrition Findings: Nutrition Notes Start: 01/03/21 16:36 Freq: Status: Active Protocol: Document 01/31/21 16:24 RADHA (Rec: 01/31/21 16:41 RADHA [id number]) Nutrition Notes Initial or Follow up Reassessment Current Diagnosis Hypertension Other Pertinent Diagnosis Acute metabolic encephalopathy , EtOH withdrawal, schizophrenia Current Diet Regular Diet (since L 12/29). Labs/Tests 01/22: Last labs available: Nutritionally unremarkable. Pertinent Medications 01/31: Vitamin B12, Folic Acid , multivitamins/minerals, Vit B1, others nutritionally unremarkable. Height 6 ft Weight 91.2 kg [place] Body Weight (kg) 80.90 BMI 27.2 Weight change and time frame No new weights in past week since last assessment Weight Status Overweight Subjective/Other Information 01/31 consult for F/U. Pt awaiting placement. MD note 01/16: pt cleared for discharge Burn Absent Trauma Absent GI Symptoms None Food Allergy No Skin Integrity/Comment no complications reported Current % PO Good (75-100%) Minimum of two criteria No #1 Nutrition Diagnosis No nutrition diagnosis at this time Comments: Pt PO intake has been consistently Good at 100%. Pt awiting for placement. Is patient on ventilator? No Is Patient Ambulatory and/or Out of Bed No REE-([facility]-confined to bed) 2116.668 Kcal/Kg value to use for calculation 20 Approximate Energy Requirements Using 1824 kcal/Kg Calculation Used for Recommendations [facility] Additional Notes Protein: 0.8-1 g/kg; 65-81 g/ Kg (from IBW). Fluids: 1 ml/kcal, or as per MD. Nutrition Intervention Change Diet Order: Continue Regular Diet. Goal #1 Maintain body weight within +/ -3% of current BWt during LOS. Goal #2 Reach and maintain acceptable chemistry lab values during LOS. Follow-Up By: 02/14/21 Additional Comments Continue to monitor food tolerance, %PO intake of meals , Hydration, and BM.
--- NOTE | 2021-02-05 08:31 | Progress Note ---
Assessment and Plan Assessment and plan: --Acute metabolic Encephalopathy (resolving) CT of the head and urine drug test-negative MRI of brain ordered unable to do due to lack of consent intiall. improved Chest x-ray negative for acute finding Consulted neurologist Patient appears to be at baseline --Febrile illness; in the setting of an encephalopathy on admission ID evaluated the patient, treated with empiric antibiotics, requested LP/MRI, no family available, to give consent And patient is agitated and confused requiring restraints --Hyponatremia/resolved hyponaremia mild-likely 2/2 dehydration continue IV hydration -- Hypertension Continue current antihypertensives. Monitor blood pressure PRN Hydralazine -- Possible Seizure disorder Seizure precautions, antiepileptic medications, neurology consult --?ETOH abuse thiamine, folic acid Closely monitor for alcohol withdrawal symptoms. --History of schizophrenia Continue psych medications psych consulted Closely monitor --DVT prophylaxis Subcutaneous Lovenox Daily Hospital course: 12/28: Patient now with fever of unknown origin. Still confused discussed with ID will obtain lumbar puncture. 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 MRI is pending. 12/29: Still with low grade fever, continue abx, follow cultures, LP to be done on thursday due to no Radiologist, Neurology input noted. Swallow eval ok, continue diet. start on HCTZ and Norvasc for HTN. No history on patient available here yet.] Want CT of the head read as negative during neurologist did review any suspect an acute ischemic stroke starting the patient on aspirin 81 mg daily unfortunately this was not started yesterday not sure why but will start that today. EEG is also ordered for possible subclinical seizures. He refused an ABG. Continue restraints as 12/30: Patient still with confusion, I wonder if he has some etoh issues, will go ahead and start on CIWA protocol in addition to Banana bag. CONTINUE restraints. 12/31: I was able to obtain records from [facility] as patient was recently admitted there on December 20 he was discharged on vitamin B12 1000 mcg daily, ferrous sulfate 325 mg twice a day and Keppra 1000 mg every 12 hours in addition to rest. Do not 1 tablet 2 times a day of 2 mg each. He does have underlying schizophrenia prior history of cocaine abuse and also history of seizure disorde r and severe neurocognitive disorder. His court appointed [employer] agent is Grace Padilla phone #[phone]. At the time of his discharge from [place] he was supposed to be placed in a personal residential as he has a history of wandering. I am not sure if this was done. As he was brought to us "found in the aguirre". Clinically he is showing some improvement but with the new information will obtain psych consultation. 01/01; could not do the MRI/LP due to his severe agitation And noncooperation, will try MRI study again tomorrow with Ativan 01/02; radiology cannot do lumbar puncture/MRI study due to patient's severe agitation requiring four-point restraints And no family/contact lens blocker and cutter available to consent for the above tests when patient is calm and stable 01/03; patient continues to be agitated requiring restraints, noncooperative and unsteady for lumbar punctures and MRI Patient has no family to give consent, case management informed 01/04; patient is more calm, however gets agitated, CM informed me that patient's Michelle Padilla court appointed guardian, will call me To discuss and give consent for the tests and procedures ,waiting for patient's guardian call 01/05; still waiting for patient's guardian Indra Padilla to call and give consent for MRI/LP 01/06: Did not get a call from the patient's guardian Indra Padilla [Case management stated that patient's guardian will call me ] 01/07; patient's guardian Michelle Padilla did not contact me , CM could not reach her. No consent for LP/MRI Possible placement to [facility]. Discharge planning per case management 01/08: Patient remains restrained, continue to follow clinically. materials manager working on placement 01/09: case loader operator working on SNF placement, follow clinically, patient remains confused and requiring restraints. Continue empiric antibiotics per ID recommendation. 01/10: Last day of antibiotic today, pending SNF placement 01/11: Completed empiric antibiotics, pending SNF placement, patient remains confused. We will monitor off restrain, continue supportive care 01/12: Pending SNF placement, continue to monitor off restrain, provide supportive care 01/13: continue to monitor off restrain, provide supportive care. pending SNF placement 01/14: pending SNF placement, continue to monitor off restrain, provide supportive care 01/22: Patient clinically stable, pending placement. 01/23: follow clinically, d/c when placement available 01/24: Patient denies any acute issue, resting on bed. Pending placement 01/25: no distress, pending placement. 01/26: Patient clinically stable, pending placement. 01/27; 01/25: no distress, pending placement. 01/28: Patient clinically stable, pending placement. cont supportive care 01/29/2021: Patient is calm, no behavioral issues reported. Vital signs stable. Awaiting placement. 01/30/2021: Patient is calm, no behavioral issues reported. Vital signs stable. Awaiting placement. 01/31/2021: Patient is psychotic but calm, no behavioral issues reported. Vital signs stable. Awaiting placement. 02/01/2021: Patient is calm. No behavioral issues reported. All vital signs are stable. Discussed with case management regarding placement. materials manager is assured me that she is calling every day and following up with [facility] in [place] 02/02/21: Awaiting placement 02/03: awaiting placement. 02/04: awaiting placement. discussed in CM rounds this AM. SW/CM working to finalize placement. 02/05: Awaiting placement and will follow up with case management with regards to disposition History Interval history: No new issues overnight. Hospitalist Physical - Constitutional Vitals: Temp Pulse Resp BP Pulse Ox 98.4 F 66 18 110/67 97 02/05/21 04:11 02/05/21 04:11 02/05/21 04:11 02/05/21 04:11 02/05/21 04:11 General appearance: Present: no acute distress, well-nourished - EENT Eyes: Present: PERRL, EOM intact ENT: hearing intact, clear oral mucosa, dentition normal - Neck Neck: Present: supple, normal ROM - Respiratory Respiratory effort: normal Respiratory: bilateral: CTA - Cardiovascular Rhythm: regular Heart Sounds: Present: S1 & S2. Absent: gallop, rub - Extremities Extremities: no ischemia, No edema, Full ROM - Abdominal General gastrointestinal: soft, non-tender, non-distended, normal bowel sounds - Integumentary Integumentary: Present: clear, warm, dry - Neurologic Neurologic: CNII-XII intact, moves all extremities Results - Labs CBC & Chem 7: 01/22/21 04:47 01/22/21 04:47 Labs: Laboratory Last Values WBC 5.9 K/mm3 (4.5-11.0) 01/22/21 04:47 RBC 5.10 M/mm3 (3.65-5.03) H 01/22/21 04:47 Hgb 11.3 gm/dl (11.8-15.2) L 01/22/21 04:47 Hct 36.5 % (35.5-45.6) 01/22/21 04:47 MCV 72 fl (84-94) L 01/22/21 04:47 MCH 22 pg (28-32) L 01/22/21 04:47 MCHC 31 % (32-34) L 01/22/21 04:47 RDW 15.5 % (13.2-15.2) H 01/22/21 04:47 Plt Count 270 K/mm3 (140-440) 01/22/21 04:47 Lymph % (Auto) 6.4 % (13.4-35.0) L 12/27/20 17:34 Sac % (Auto) 3.9 % (0.0-7.3) 12/27/20 17:34 Eos % (Auto) 0.2 % (0.0-4.3) 12/27/20 17:34 Baso % (Auto) Customer Care Specialist 01/14/21 07:27 Lymph # (Auto) 0.7 K/mm3 (1.2-5.4) L 12/27/20 17:34 Sac # (Auto) 0.4 K/mm3 (0.0-0.8) 12/27/20 17:34 Eos # (Auto) 0.0 K/mm3 (0.0-0.4) 12/27/20 17:34 Baso # (Auto) 0.1 K/mm3 (0.0-0.1) 12/27/20 17:34 Add Manual Diff Complete 01/14/21 07:27 Total Counted 100 01/14/21 07:27 Seg Neutrophils % 89.0 % (40.0-70.0) H 12/27/20 17:34 Seg Neuts % (Manual) 76.0 % (40.0-70.0) H 01/14/21 07:27 Band Neutrophils % 1.0 % 01/14/21 07:27 Lymphocytes % (Manual) 8.0 % (13.4-35.0) L 01/14/21 07:27 Reactive Lymphs % (Man) 1.0 % 01/14/21 07:27 Monocytes % (Manual) 4.0 % (0.0-7.3) 01/14/21 07:27 Eosinophils % (Manual) 1.0 % (0.0-4.3) 01/14/21 07:27 Myelocytes % 9.0 % 01/14/21 07:27 Nucleated RBC % Not Reportable 01/14/21 07:27 Seg Neutrophils # 9.5 K/mm3 (1.8-7.7) H 12/27/20 17:34 Seg Neutrophils # Man 4.5 K/mm3 (1.8-7.7) 01/14/21 07:27 Band Neutrophils # 0.1 K/mm3 01/14/21 07:27 Lymphocytes # (Manual) 0.5 K/mm3 (1.2-5.4) L 01/14/21 07:27 Abs React Lymphs (Man) 0.1 K/mm3 01/14/21 07:27 Monocytes # (Manual) 0.2 K/mm3 (0.0-0.8) 01/14/21 07:27 Eosinophils # (Manual) 0.1 K/mm3 (0.0-0.4) 01/14/21 07:27 Basophils # (Manual) 0.0 K/mm3 (0.0-0.1) 01/14/21 07:27 Metamyelocytes # 0.0 K/mm3 01/14/21 07:27 Myelocytes # 0.5 K/mm3 01/14/21 07:27 Promyelocytes # 0.0 K/mm3 01/14/21 07:27 Blast Cells # 0.0 K/mm3 01/14/21 07:27 WBC Morphology Not Reportable 01/14/21 07:27 Hypersegmented Neuts Not Reportable 01/14/21 07:27 Hyposegmented Neuts Not Reportable 01/14/21 07:27 Hypogranular Neuts Not Reportable 01/14/21 07:27 Smudge Cells Not Reportable 01/14/21 07:27 Toxic Granulation Not Reportable 01/14/21 07:27 Toxic Vacuolation Not Reportable 01/14/21 07:27 Dohle Bodies Not Reportable 01/14/21 07:27 Pelger-Huet Anomaly Not Reportable 01/14/21 07:27 Diana Rods Not Reportable 01/14/21 07:27 Platelet Estimate Consistent w auto 01/14/21 07:27 Clumped Platelets Not Reportable 01/14/21 07:27 Plt Clumps, EDTA Not Reportable 01/14/21 07:27 Large Platelets Not Reportable 01/14/21 07:27 Giant Platelets Not Reportable 01/14/21 07:27 Platelet Satelliting Not Reportable 01/14/21 07:27 Plt Morphology Comment Not Reportable 01/14/21 07:27 RBC Morphology Not Reportable 01/14/21 07:27 Dimorphic RBCs Not Reportable 01/14/21 07:27 Polychromasia Not Reportable 01/14/21 07:27 Hypochromasia Not Reportable 01/14/21 07:27 Poikilocytosis Not Reportable 01/14/21 07:27 Anisocytosis Not Reportable 01/14/21 07:27 Microcytosis Not Reportable 01/14/21 07:27 Macrocytosis Not Reportable 01/14/21 07:27 Spherocytes Not Reportable 01/14/21 07:27 Pappenheimer Bodies Not Reportable 01/14/21 07:27 Sickle Cells Not Reportable 01/14/21 07:27 Target Cells Not Reportable 01/14/21 07:27 Tear Drop Cells Not Reportable 01/14/21 07:27 Ovalocytes Not Reportable 01/14/21 07:27 Helmet Cells Not Reportable 01/14/21 07:27 [place] Bodies Not Reportable 01/14/21 07:27 Bradford Rings Not Reportable 01/14/21 07:27 Aakash Cells Not Reportable 01/14/21 07:27 Bite Cells Not Reportable 01/14/21 07:27 Crenated Cell Not Reportable 01/14/21 07:27 Elliptocytes Not Reportable 01/14/21 07:27 Acanthocytes (Spur) Not Reportable 01/14/21 07:27 Rouleaux Not Reportable 01/14/21 07:27 Hemoglobin C Crystals Not Reportable 01/14/21 07:27 Schistocytes Not Reportable 01/14/21 07:27 Malaria parasites Not Reportable 01/14/21 07:27 Johnathon Bodies Not Reportable 01/14/21 07:27 Hem Pathologist Commnt No 01/14/21 07:27 Sodium 140 mmol/L (137-145) 01/22/21 04:47 Potassium 3.8 mmol/L (3.6-5.0) 01/22/21 04:47 Chloride 101.3 mmol/L (98-107) 01/22/21 04:47 Carbon Dioxide 28 mmol/L (22-30) 01/22/21 04:47 Anion Gap 15 mmol/L 01/22/21 04:47 BUN 16 mg/dL (9-20) 01/22/21 04:47 Creatinine 0.8 mg/dL (0.8-1.3) 01/22/21 04:47 Estimated GFR > 60 ml/min 01/22/21 04:47 BUN/Creatinine Ratio 20 % 01/22/21 04:47 Glucose 103 mg/dL (75-100) H 01/22/21 04:47 POC Glucose 112 mg/dL (70-105) H 12/29/20 00:14 Lactic Acid 1.30 mmol/L (0.7-2.0) 12/28/20 08:13 Calcium 9.0 mg/dL (8.4-10.2) 01/22/21 04:47 Phosphorus 3.70 mg/dL (2.5-4.5) 12/30/20 13:13 Magnesium 2.10 mg/dL (1.7-2.3) 12/30/20 13:13 Total Bilirubin 0.50 mg/dL (0.1-1.2) 12/31/20 05:02 Direct Bilirubin < 0.2 mg/dL (0-0.2) 12/27/20 17:34 Indirect Bilirubin 0.2 mg/dL 12/27/20 17:34 AST 19 units/L (5-40) 12/31/20 05:02 ALT 12 units/L (7-56) 12/31/20 05:02 Alkaline Phosphatase 72 units/L (35-129) 12/31/20 05:02 Ammonia 21.0 umol/L (25-60) L 12/30/20 13:13 Total Protein 7.1 g/dL (6.3-8.2) 12/31/20 05:02 Albumin 3.7 g/dL (3.9-5) L 12/31/20 05:02 Albumin/Globulin Ratio 1.1 % 12/31/20 05:02 Urine Color Straw (Yellow) 12/28/20 02:15 Urine Turbidity Clear (Clear) 12/28/20 02:15 Urine pH 5.0 (5.0-7.0) 12/28/20 02:15 Ur Specific [place] 1.025 (1.003-1.030) 12/28/20 02:15 Urine Protein 100 mg/dl mg/dL (Negative) 12/28/20 02:15 Urine Glucose (UA) Negative mg/dL (Negative) 12/28/20 02:15 Urine Ketones Negative mg/dL (Negative) 12/28/20 02:15 Urine Blood Small (Negative) A 12/28/20 02:15 Urine Nitrite Negative (Negative) 12/28/20 02:15 Ur Reducing Substances Not Reportable 12/28/20 02:15 Urine Bilirubin Negative (Negative) 12/28/20 02:15 Urine Ictotest Not Reportable 12/28/20 02:15 Urine Urobilinogen < 2.0 mg/dL (<2.0) 12/28/20 02:15 Ur Leukocyte Esterase Negative (Negative) 12/28/20 02:15 Urine WBC (Auto) 3.0 /HPF (0.0-6.0) 12/28/20 02:15 Urine RBC (Auto) 4.0 /HPF (0.0-6.0) 12/28/20 02:15 U Epithel Cells (Auto) < 1.0 /HPF (0-13.0) 12/28/20 02:15 Hyaline Casts 1 /LPF 12/28/20 02:15 Granular Casts 1 /LPF 12/28/20 02:15 Urine Mucus Few /HPF 12/28/20 02:15 Salicylates < 0.3 mg/dL (2.8-20.0) L 12/27/20 17:34 Urine Opiates Screen Negative 12/27/20 17:11 Urine Methadone Screen Negative 12/27/20 17:11 Acetaminophen 5.0 ug/mL (10.0-30.0) L 12/27/20 17:34 Ur Barbiturates Screen Negative 12/27/20 17:11 Ur Phencyclidine Scrn Negative 12/27/20 17:11 Ur Amphetamines Screen Negative 12/27/20 17:11 U Benzodiazepines Scrn Negative 12/27/20 17:11 Urine Cocaine Screen Negative 12/27/20 17:11 U Marijuana (THC) Screen Negative 12/27/20 17:11 Drugs of Abuse Note Disclamer 12/27/20 17:11 Plasma/Serum Alcohol < 0.01 % (0-0.07) 12/27/20 17:34 [place]/IV: Voiding Method Toilet Active Medications - Current Medications Current Medications: Generic Name Dose Route Start Last Admin Trade Name Freq PRN Reason Stop Dose Admin Amlodipine Besylate 2.5 mg 12/29/20 10:00 02/04/21 09:01 Amlodipine 5 Mg Tab PO 2.5 mg QDAY CHELLE Administration Aspirin 81 mg 12/29/20 10:00 02/04/21 09:01 Aspirin 81 Mg Tab Chew PO 81 mg QDAY CHELLE Administration Atorvastatin Calcium 40 mg 12/29/20 22:00 02/04/21 21:41 Atorvastatin 40 Mg Tab PO 40 mg QHS CHELLE Administration Cyanocobalamin 1,000 mcg 12/31/20 15:00 02/04/21 09:01 Cyanocobalamin (Vit B-12) 1000 Mcg Tab PO 1,000 mcg QDAY CHELLE Administration Enoxaparin Sodium 40 mg 12/28/20 10:00 02/04/21 09:01 Enoxaparin 40 Mg/0.4 Ml Inj SUB-Q 40 mg QDAY CHELLE Administration Folic Acid 1 mg 01/03/21 10:00 02/04/21 09:01 Folic Acid 1 Mg Tab PO 1 mg DAILY CHELLE Administration Hydrochlorothiazide 25 mg 12/29/20 10:00 02/04/21 09:01 Hydrochlorothiazide 25 Mg Tab PO 25 mg QDAY CHELLE Administration Levetiracetam 500 mg 01/02/21 10:00 02/04/21 21:41 Levetiracetam 500 Mg Tab PO 500 mg BID CHELLE Administration Lorazepam 2 mg 12/30/20 11:00 12/30/20 22:21 Lorazepam 2 Mg/Ml Vial IV 2 mg Q1HR PRN Administration CIWA-Ar 8-15 Lorazepam 4 mg 12/30/20 11:00 Lorazepam 2 Mg/Ml Vial IV Q1HR PRN CIWA-Ar 16-25 Multivitamins/Minerals 1 each 01/03/21 10:00 02/04/21 09:01 Multivitamins,Ther W-Minerals Tab PO 1 each QDAY CHELLE Administration Risperidone 1 mg 12/31/20 22:00 02/04/21 21:41 Risperidone 1 Mg Tab PO 1 mg BID CHELLE Administration Sodium Chloride 10 ml 12/28/20 10:00 02/04/21 21:41 Sodium Chloride 0.9% 10 Ml Flush Syringe IV Not Given BID CHELLE Thiamine HCl 100 mg 01/03/21 10:00 02/04/21 09:02 Thiamine 100 Mg Tab PO 100 mg QDAY CHELLE Administration Nutrition/Malnutrition Assess - Dietary Evaluation Nutrition/Malnutrition Findings: Nutrition Notes Start: 01/03/21 16:36 Freq: Status: Active Protocol: Document 01/31/21 16:24 RADHA (Rec: 01/31/21 16:41 RADHA [id number]) Nutrition Notes Initial or Follow up Reassessment Current Diagnosis Hypertension Other Pertinent Diagnosis Acute metabolic encephalopathy , EtOH withdrawal, schizophrenia Current Diet Regular Diet (since L 12/29). Labs/Tests 01/22: Last labs available: Nutritionally unremarkable. Pertinent Medications 01/31: Vitamin B12, Folic Acid , multivitamins/minerals, Vit B1, others nutritionally unremarkable. Height 6 ft Weight 91.2 kg [place] Body Weight (kg) 80.90 BMI 27.2 Weight change and time frame No new weights in past week since last assessment Weight Status Overweight Subjective/Other Information 01/31 consult for F/U. Pt awaiting placement. note 01/16: pt cleared for discharge Burn Absent Trauma Absent GI Symptoms None Food Allergy No Skin Integrity/Comment no complications reported Current % PO Good (75-100%) Minimum of two criteria No #1 Nutrition Diagnosis No nutrition diagnosis at this time Comments: Pt PO intake has been consistently Good at 100%. Pt awiting for placement. Is patient on ventilator? No Is Patient Ambulatory and/or Out of Bed No REE-([facility]-confined to bed) 2116.668 Kcal/Kg value to use for calculation 20 Approximate Energy Requirements Using 1824 kcal/Kg Calculation Used for Recommendations [facility] Additional Notes Protein: 0.8-1 g/kg; 65-81 g/ Kg (from IBW). Fluids: 1 ml/kcal, or as per MD. Nutrition Intervention Change Diet Order: Continue Regular Diet. Goal #1 Maintain body weight within +/ -3% of current BWt during LOS. Goal #2 Reach and maintain acceptable chemistry lab values during LOS. Follow-Up By: 02/14/21 Additional Comments Continue to monitor food tolerance, %PO intake of meals , Hydration, and BM.
[2021-02-05] MEDS: MULTIVITAMINS,THER W-MINERALS TAB PO SCH (10:19)
[2021-02-05] MEDS: amLODIPine 5 MG TAB PO SCH (10:19)
[2021-02-05] MEDS: levETIRAcetam 500 MG TAB PO SCH ×2 (10:19→21:03)
[2021-02-05] MEDS: FOLIC ACID 1 MG TAB PO SCH (10:19)
[2021-02-05] MEDS: ASPIRIN 81 MG TAB CHEW PO SCH (10:19)
[2021-02-05] MEDS: CYANOCOBALAMIN (VIT B-12) 1000 MCG TAB PO SCH (10:19)
[2021-02-05] MEDS: ENOXAPARIN 40 MG/0.4 ML INJ SUB-Q SCH (10:20)
[2021-02-05] MEDS: risperiDONE 1 MG TAB PO SCH ×2 (10:20→21:03)
[2021-02-05] MEDS: hydroCHLOROthiazide 25 MG TAB PO SCH (10:20)
[2021-02-05] MEDS: THIAMINE 100 MG TAB PO SCH (10:20)
--- NOTE | 2021-02-06 10:35 | Progress Note ---
Assessment and Plan Assessment and plan: --Acute metabolic Encephalopathy (resolving) CT of the head and urine drug test-negative MRI of brain ordered unable to do due to lack of consent intiall. improved Chest x-ray negative for acute finding Consulted neurologist Patient appears to be at baseline --Febrile illness; in the setting of an encephalopathy on admission ID evaluated the patient, treated with empiric antibiotics, requested LP/MRI, no family available, to give consent And patient is agitated and confused requiring restraints --Hyponatremia/resolved hyponaremia mild-likely 2/2 dehydration continue IV hydration -- Hypertension Continue current antihypertensives. Monitor blood pressure PRN Hydralazine -- Possible Seizure disorder Seizure precautions, antiepileptic medications, neurology consult --?ETOH abuse thiamine, folic acid Closely monitor for alcohol withdrawal symptoms. --History of schizophrenia Continue psych medications psych consulted Closely monitor --DVT prophylaxis Subcutaneous Lovenox Daily Hospital course: 12/28: Patient now with fever of unknown origin. Still confused discussed with ID will obtain lumbar puncture. 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 MRI is pending. 12/29: Still with low grade fever, continue abx, follow cultures, LP to be done on thursday due to no Radiologist, Neurology input noted. Swallow eval ok, continue diet. start on HCTZ and Norvasc for HTN. No history on patient available here yet.] Want CT of the head read as negative during neurologist did review any suspect an acute ischemic stroke starting the patient on aspirin 81 mg daily unfortunately this was not started yesterday not sure why but will start that today. EEG is also ordered for possible subclinical seizures. He refused an ABG. Continue restraints as 12/30: Patient still with confusion, I wonder if he has some etoh issues, will go ahead and start on CIWA protocol in addition to Banana bag. CONTINUE restraints. 12/31: I was able to obtain records from [facility] as patient was recently admitted there on December 20 he was discharged on vitamin B12 1000 mcg daily, ferrous sulfate 325 mg twice a day and Keppra 1000 mg every 12 hours in addition to rest. Do not 1 tablet 2 times a day of 2 mg each. He does have underlying schizophrenia prior history of cocaine abuse and also history of seizure disorde r and severe neurocognitive disorder. His court appointed [employer] agent is Grace Padilla phone #[phone]. At the time of his discharge from [facility] he was supposed to be placed in a personal custodial as he has a history of wandering. I am not sure if this was done. As he was brought to us "found in the ag[place]irre". Clinically he is showing some improvement but with the new information will obtain psych consultation. 01/01; could not do the MRI/LP due to his severe agitation And noncooperation, will try MRI study again tomorrow with Ativan 01/02; radiology cannot do lumbar puncture/MRI study due to patient's severe agitation requiring four-point restraints And no family/wash crew person available to consent for the above tests when patient is calm and stable 01/03; patient continues to be agitated requiring restraints, noncooperative and unsteady for lumbar punctures and MRI Patient has no family to give consent, case management informed 01/04; patient is more calm, however gets agitated, CM informed me that patient's Michelle Padilla court appointed guardian, will call me To discuss and give consent for the tests and procedures ,waiting for patient's guardian call 01/05; still waiting for patient's guardian Indra Padilla to call and give consent for MRI/LP 01/06: Did not get a call from the patient's guardian Indra Padilla [Case management stated that patient's guardian will call me ] 01/07; patient's guardian Michelle Padilla did not contact me , CM could not reach her. No consent for LP/MRI Possible placement to [facility]. Discharge planning per case management 01/08: Patient remains restrained, continue to follow clinically. apartment house manager working on placement 01/09: corrections caseworker working on SNF placement, follow clinically, patient remains confused and requiring restraints. Continue empiric antibiotics per ID recommendation. 01/10: Last day of antibiotic today, pending SNF placement 01/11: Completed empiric antibiotics, pending SNF placement, patient remains confused. We will monitor off restrain, continue supportive care 01/12: Pending SNF placement, continue to monitor off restrain, provide supportive care 01/13: continue to monitor off restrain, provide supportive care. pending SNF placement 01/14: pending SNF placement, continue to monitor off restrain, provide supportive care 01/22: Patient clinically stable, pending placement. 01/23: follow clinically, d/c when placement available 01/24: Patient denies any acute issue, resting on bed. Pending placement 01/25: no distress, pending placement. 01/26: Patient clinically stable, pending placement. 01/27; 01/25: no distress, pending placement. 01/28: Patient clinically stable, pending placement. cont supportive care 01/29/2021: Patient is calm, no behavioral issues reported. Vital signs stable. Awaiting placement. 01/30/2021: Patient is calm, no behavioral issues reported. Vital signs stable. Awaiting placement. 01/31/2021: Patient is psychotic but calm, no behavioral issues reported. Vital signs stable. Awaiting placement. 02/01/2021: Patient is calm. No behavioral issues reported. All vital signs are stable. Discussed with case management regarding placement. apartment house manager is assured me that she is calling every day and following up with [facility] in [place] 02/02/21: Awaiting placement 02/03: awaiting placement. 02/04: awaiting placement. discussed in CM rounds this AM. SW/CM working to finalize placement. 02/05: Awaiting placement and will follow up with case management with regards to disposition 02/06: No new issues. Patient awaiting placement History Interval history: No new issues overnight. Hospitalist Physical - Constitutional Vitals: Temp Pulse Resp BP Pulse Ox 97.6 F 64 18 130/50 96 02/06/21 07:37 02/06/21 07:37 02/06/21 07:37 02/06/21 07:37 02/06/21 07:37 General appearance: Present: no acute distress, well-nourished - EENT Eyes: Present: PERRL, EOM intact ENT: hearing intact, clear oral mucosa, dentition normal - Neck Neck: Present: supple, normal ROM - Respiratory Respiratory effort: normal Respiratory: bilateral: CTA - Cardiovascular Rhythm: regular Heart Sounds: Present: S1 & S2. Absent: gallop, rub - Extremities Extremities: no ischemia, No edema, Full ROM - Abdominal General gastrointestinal: soft, non-tender, non-distended, normal bowel sounds - Integumentary Integumentary: Present: clear, warm, dry - Neurologic Neurologic: CNII-XII intact, moves all extremities Results - Labs CBC & Chem 7: 01/22/21 04:47 01/22/21 04:47 Labs: Laboratory Last Values WBC 5.9 K/mm3 (4.5-11.0) 01/22/21 04:47 RBC 5.10 M/mm3 (3.65-5.03) H 01/22/21 04:47 Hgb 11.3 gm/dl (11.8-15.2) L 01/22/21 04:47 Hct 36.5 % (35.5-45.6) 01/22/21 04:47 MCV 72 fl (84-94) L 01/22/21 04:47 MCH 22 pg (28-32) L 01/22/21 04:47 MCHC 31 % (32-34) L 01/22/21 04:47 RDW 15.5 % (13.2-15.2) H 01/22/21 04:47 Plt Count 270 K/mm3 (140-440) 01/22/21 04:47 Lymph % (Auto) 6.4 % (13.4-35.0) L 12/27/20 17:34 [place] % (Auto) 3.9 % (0.0-7.3) 12/27/20 17:34 Eos % (Auto) 0.2 % (0.0-4.3) 12/27/20 17:34 Baso % (Auto) Lead Based Paint Technician 01/14/21 07:27 Lymph # (Auto) 0.7 K/mm3 (1.2-5.4) L 12/27/20 17:34 [place] # (Auto) 0.4 K/mm3 (0.0-0.8) 12/27/20 17:34 Eos # (Auto) 0.0 K/mm3 (0.0-0.4) 12/27/20 17:34 Baso # (Auto) 0.1 K/mm3 (0.0-0.1) 12/27/20 17:34 Add Manual Diff Complete 01/14/21 07:27 Total Counted 100 01/14/21 07:27 Seg Neutrophils % 89.0 % (40.0-70.0) H 12/27/20 17:34 Seg Neuts % (Manual) 76.0 % (40.0-70.0) H 01/14/21 07:27 Band Neutrophils % 1.0 % 01/14/21 07:27 Lymphocytes % (Manual) 8.0 % (13.4-35.0) L 01/14/21 07:27 Reactive Lymphs % (Man) 1.0 % 01/14/21 07:27 Monocytes % (Manual) 4.0 % (0.0-7.3) 01/14/21 07:27 Eosinophils % (Manual) 1.0 % (0.0-4.3) 01/14/21 07:27 Myelocytes % 9.0 % 01/14/21 07:27 Nucleated RBC % Not Reportable 01/14/21 07:27 Seg Neutrophils # 9.5 K/mm3 (1.8-7.7) H 12/27/20 17:34 Seg Neutrophils # Man 4.5 K/mm3 (1.8-7.7) 01/14/21 07:27 Band Neutrophils # 0.1 K/mm3 01/14/21 07:27 Lymphocytes # (Manual) 0.5 K/mm3 (1.2-5.4) L 01/14/21 07:27 Abs React Lymphs (Man) 0.1 K/mm3 01/14/21 07:27 Monocytes # (Manual) 0.2 K/mm3 (0.0-0.8) 01/14/21 07:27 Eosinophils # (Manual) 0.1 K/mm3 (0.0-0.4) 01/14/21 07:27 Basophils # (Manual) 0.0 K/mm3 (0.0-0.1) 01/14/21 07:27 Metamyelocytes # 0.0 K/mm3 01/14/21 07:27 Myelocytes # 0.5 K/mm3 01/14/21 07:27 Promyelocytes # 0.0 K/mm3 01/14/21 07:27 Blast Cells # 0.0 K/mm3 01/14/21 07:27 WBC Morphology Not Reportable 01/14/21 07:27 Hypersegmented Neuts Not Reportable 01/14/21 07:27 Hyposegmented Neuts Not Reportable 01/14/21 07:27 Hypogranular Neuts Not Reportable 01/14/21 07:27 Smudge Cells Not Reportable 01/14/21 07:27 Toxic Granulation Not Reportable 01/14/21 07:27 Toxic Vacuolation Not Reportable 01/14/21 07:27 Dohle Bodies Not Reportable 01/14/21 07:27 Pelger-Huet Anomaly Not Reportable 01/14/21 07:27 Diana Rods Not Reportable 01/14/21 07:27 Platelet Estimate Consistent w auto 01/14/21 07:27 Clumped Platelets Not Reportable 01/14/21 07:27 Plt Clumps, EDTA Not Reportable 01/14/21 07:27 Large Platelets Not Reportable 01/14/21 07:27 Giant Platelets Not Reportable 01/14/21 07:27 Platelet Satelliting Not Reportable 01/14/21 07:27 Plt Morphology Comment Not Reportable 01/14/21 07:27 RBC Morphology Not Reportable 01/14/21 07:27 Dimorphic RBCs Not Reportable 01/14/21 07:27 Polychromasia Not Reportable 01/14/21 07:27 Hypochromasia Not Reportable 01/14/21 07:27 Poikilocytosis Not Reportable 01/14/21 07:27 Anisocytosis Not Reportable 01/14/21 07:27 Microcytosis Not Reportable 01/14/21 07:27 Macrocytosis Not Reportable 01/14/21 07:27 Spherocytes Not Reportable 01/14/21 07:27 Pappenheimer Bodies Not Reportable 01/14/21 07:27 Sickle Cells Not Reportable 01/14/21 07:27 Target Cells Not Reportable 01/14/21 07:27 Tear Drop Cells Not Reportable 01/14/21 07:27 Ovalocytes Not Reportable 01/14/21 07:27 Helmet Cells Not Reportable 01/14/21 07:27 [place] Bodies Not Reportable 01/14/21 07:27 [place] Rings Not Reportable 01/14/21 07:27 Aakash Cells Not Reportable 01/14/21 07:27 Bite Cells Not Reportable 01/14/21 07:27 Crenated Cell Not Reportable 01/14/21 07:27 Elliptocytes Not Reportable 01/14/21 07:27 Acanthocytes (Spur) Not Reportable 01/14/21 07:27 Rouleaux Not Reportable 01/14/21 07:27 Hemoglobin C Crystals Not Reportable 01/14/21 07:27 Schistocytes Not Reportable 01/14/21 07:27 Malaria parasites Not Reportable 01/14/21 07:27 Johnathon Bodies Not Reportable 01/14/21 07:27 Hem Pathologist Commnt No 01/14/21 07:27 Sodium 140 mmol/L (137-145) 01/22/21 04:47 Potassium 3.8 mmol/L (3.6-5.0) 01/22/21 04:47 Chloride 101.3 mmol/L (98-107) 01/22/21 04:47 Carbon Dioxide 28 mmol/L (22-30) 01/22/21 04:47 Anion Gap 15 mmol/L 01/22/21 04:47 BUN 16 mg/dL (9-20) 01/22/21 04:47 Creatinine 0.8 mg/dL (0.8-1.3) 01/22/21 04:47 Estimated GFR > 60 ml/min 01/22/21 04:47 BUN/Creatinine Ratio 20 % 01/22/21 04:47 Glucose 103 mg/dL (75-100) H 01/22/21 04:47 POC Glucose 112 mg/dL (70-105) H 12/29/20 00:14 Lactic Acid 1.30 mmol/L (0.7-2.0) 12/28/20 08:13 Calcium 9.0 mg/dL (8.4-10.2) 01/22/21 04:47 Phosphorus 3.70 mg/dL (2.5-4.5) 12/30/20 13:13 Magnesium 2.10 mg/dL (1.7-2.3) 12/30/20 13:13 Total Bilirubin 0.50 mg/dL (0.1-1.2) 12/31/20 05:02 Direct Bilirubin < 0.2 mg/dL (0-0.2) 12/27/20 17:34 Indirect Bilirubin 0.2 mg/dL 12/27/20 17:34 AST 19 units/L (5-40) 12/31/20 05:02 ALT 12 units/L (7-56) 12/31/20 05:02 Alkaline Phosphatase 72 units/L (35-129) 12/31/20 05:02 Ammonia 21.0 umol/L (25-60) L 12/30/20 13:13 Total Protein 7.1 g/dL (6.3-8.2) 12/31/20 05:02 Albumin 3.7 g/dL (3.9-5) L 12/31/20 05:02 Albumin/Globulin Ratio 1.1 % 12/31/20 05:02 Urine Color Straw (Yellow) 12/28/20 02:15 Urine Turbidity Clear (Clear) 12/28/20 02:15 Urine pH 5.0 (5.0-7.0) 12/28/20 02:15 Ur Specific [place] 1.025 (1.003-1.030) 12/28/20 02:15 Urine Protein 100 mg/dl mg/dL (Negative) 12/28/20 02:15 Urine Glucose (UA) Negative mg/dL (Negative) 12/28/20 02:15 Urine Ketones Negative mg/dL (Negative) 12/28/20 02:15 Urine Blood Small (Negative) A 12/28/20 02:15 Urine Nitrite Negative (Negative) 12/28/20 02:15 Ur Reducing Substances Not Reportable 12/28/20 02:15 Urine Bilirubin Negative (Negative) 12/28/20 02:15 Urine Ictotest Not Reportable 12/28/20 02:15 Urine Urobilinogen < 2.0 mg/dL (<2.0) 12/28/20 02:15 Ur Leukocyte Esterase Negative (Negative) 12/28/20 02:15 Urine WBC (Auto) 3.0 /HPF (0.0-6.0) 12/28/20 02:15 Urine RBC (Auto) 4.0 /HPF (0.0-6.0) 12/28/20 02:15 U Epithel Cells (Auto) < 1.0 /HPF (0-13.0) 12/28/20 02:15 Hyaline Casts 1 /LPF 12/28/20 02:15 Granular Casts 1 /LPF 12/28/20 02:15 Urine Mucus Few /HPF 12/28/20 02:15 Salicylates < 0.3 mg/dL (2.8-20.0) L 12/27/20 17:34 Urine Opiates Screen Negative 12/27/20 17:11 Urine Methadone Screen Negative 12/27/20 17:11 Acetaminophen 5.0 ug/mL (10.0-30.0) L 12/27/20 17:34 Ur Barbiturates Screen Negative 12/27/20 17:11 Ur Phencyclidine Scrn Negative 12/27/20 17:11 Ur Amphetamines Screen Negative 12/27/20 17:11 U Benzodiazepines Scrn Negative 12/27/20 17:11 Urine Cocaine Screen Negative 12/27/20 17:11 U Marijuana (THC) Screen Negative 12/27/20 17:11 Drugs of Abuse Note Disclamer 12/27/20 17:11 Plasma/Serum Alcohol < 0.01 % (0-0.07) 12/27/20 17:34 [place]/IV: Voiding Method Toilet Active Medications - Current Medications Current Medications: Generic Name Dose Route Start Last Admin Trade Name Freq PRN Reason Stop Dose Admin Amlodipine Besylate 2.5 mg 12/29/20 10:00 02/05/21 10:19 Amlodipine 5 Mg Tab PO 2.5 mg QDAY CHELLE Administration Aspirin 81 mg 12/29/20 10:00 02/05/21 10:19 Aspirin 81 Mg Tab Chew PO 81 mg QDAY CHELLE Administration Atorvastatin Calcium 40 mg 12/29/20 22:00 02/05/21 21:03 Atorvastatin 40 Mg Tab PO 40 mg QHS CHELLE Administration Cyanocobalamin 1,000 mcg 12/31/20 15:00 02/05/21 10:19 Cyanocobalamin (Vit B-12) 1000 Mcg Tab PO 1,000 mcg QDAY CHELLE Administration Enoxaparin Sodium 40 mg 12/28/20 10:00 02/05/21 10:20 Enoxaparin 40 Mg/0.4 Ml Inj SUB-Q 40 mg QDAY CHELLE Administration Folic Acid 1 mg 01/03/21 10:00 02/05/21 10:19 Folic Acid 1 Mg Tab PO 1 mg DAILY CHELLE Administration Hydrochlorothiazide 25 mg 12/29/20 10:00 02/05/21 10:20 Hydrochlorothiazide 25 Mg Tab PO 25 mg QDAY CHELLE Administration Levetiracetam 500 mg 01/02/21 10:00 02/05/21 21:03 Levetiracetam 500 Mg Tab PO 500 mg BID CHELLE Administration Lorazepam 2 mg 12/30/20 11:00 12/30/20 22:21 Lorazepam 2 Mg/Ml Vial IV 2 mg Q1HR PRN Administration CIWA-Ar 8-15 Lorazepam 4 mg 12/30/20 11:00 Lorazepam 2 Mg/Ml Vial IV Q1HR PRN CIWA-Ar 16-25 Multivitamins/Minerals 1 each 01/03/21 10:00 02/05/21 10:19 Multivitamins,Ther W-Minerals Tab PO 1 each QDAY CHELLE Administration Risperidone 1 mg 12/31/20 22:00 02/05/21 21:03 Risperidone 1 Mg Tab PO 1 mg BID CHELLE Administration Sodium Chloride 10 ml 12/28/20 10:00 02/05/21 21:04 Sodium Chloride 0.9% 10 Ml Flush Syringe IV Not Given BID CHELLE Thiamine HCl 100 mg 01/03/21 10:00 02/05/21 10:20 Thiamine 100 Mg Tab PO 100 mg QDAY CHELLE Administration Nutrition/Malnutrition Assess - Dietary Evaluation Nutrition/Malnutrition Findings: Nutrition Notes Start: 01/03/21 16:36 Freq: Status: Active Protocol: Document 01/31/21 16:24 RADHA (Rec: 01/31/21 16:41 RADHA [id number]) Nutrition Notes Initial or Follow up Reassessment Current Diagnosis Hypertension Other Pertinent Diagnosis Acute metabolic encephalopathy , EtOH withdrawal, schizophrenia Current Diet Regular Diet (since L 12/29). Labs/Tests 01/22: Last labs available: Nutritionally unremarkable. Pertinent Medications 01/31: Vitamin B12, Folic Acid , multivitamins/minerals, Vit B1, others nutritionally unremarkable. Height 6 ft Weight 91.2 kg [place] Body Weight (kg) 80.90 BMI 27.2 Weight change and time frame No new weights in past week since last assessment Weight Status Overweight Subjective/Other Information 01/31 RD consult for F/U. Pt awaiting placement. note 01/16: pt cleared for discharge Burn Absent Trauma Absent GI Symptoms None Food Allergy No Skin Integrity/Comment no complications reported Current % PO Good (75-100%) Minimum of two criteria No #1 Nutrition Diagnosis No nutrition diagnosis at this time Comments: Pt PO intake has been consistently Good at 100%. Pt awiting for placement. Is patient on ventilator? No Is Patient Ambulatory and/or Out of Bed No REE-([facility]. Jeaz-confined to bed) 2116.668 Kcal/Kg value to use for calculation 20 Approximate Energy Requirements Using 1824 kcal/Kg Calculation Used for Recommendations [facility] Additional Notes Protein: 0.8-1 g/kg; 65-81 g/ Kg (from IBW). Fluids: 1 ml/kcal, or as per MD. Nutrition Intervention Change Diet Order: Continue Regular Diet. Goal #1 Maintain body weight within +/ -3% of current BWt during LOS. Goal #2 Reach and maintain acceptable chemistry lab values during LOS. Follow-Up By: 02/14/21 Additional Comments Continue to monitor food tolerance, %PO intake of meals , Hydration, and BM.
[2021-02-06] MEDS: amLODIPine 5 MG TAB PO SCH (10:52)
[2021-02-06] MEDS: ENOXAPARIN 40 MG/0.4 ML INJ SUB-Q SCH (10:53)
[2021-02-06] MEDS: ASPIRIN 81 MG TAB CHEW PO SCH (10:53)
[2021-02-06] MEDS: FOLIC ACID 1 MG TAB PO SCH (10:53)
[2021-02-06] MEDS: hydroCHLOROthiazide 25 MG TAB PO SCH (10:54)
[2021-02-06] MEDS: levETIRAcetam 500 MG TAB PO SCH ×2 (10:54→22:58)
[2021-02-06] MEDS: risperiDONE 1 MG TAB PO SCH ×2 (10:54→22:58)
[2021-02-06] MEDS: THIAMINE 100 MG TAB PO SCH (10:54)
[2021-02-06] MEDS: CYANOCOBALAMIN (VIT B-12) 1000 MCG TAB PO SCH (10:54)
[2021-02-06] MEDS: MULTIVITAMINS,THER W-MINERALS TAB PO SCH (10:54)
[2021-02-07] MEDS: levETIRAcetam 500 MG TAB PO SCH ×2 (09:18→21:49)
[2021-02-07] MEDS: risperiDONE 1 MG TAB PO SCH ×2 (09:18→21:49)
[2021-02-07] MEDS: ASPIRIN 81 MG TAB CHEW PO SCH (09:18)
[2021-02-07] MEDS: MULTIVITAMINS,THER W-MINERALS TAB PO SCH (09:18)
[2021-02-07] MEDS: FOLIC ACID 1 MG TAB PO SCH (09:18)
[2021-02-07] MEDS: ENOXAPARIN 40 MG/0.4 ML INJ SUB-Q SCH (09:18)
[2021-02-07] MEDS: CYANOCOBALAMIN (VIT B-12) 1000 MCG TAB PO SCH (09:18)
[2021-02-07] MEDS: amLODIPine 5 MG TAB PO SCH (09:18)
[2021-02-07] MEDS: THIAMINE 100 MG TAB PO SCH (09:18)
[2021-02-07] MEDS: hydroCHLOROthiazide 25 MG TAB PO SCH (09:18)
--- NOTE | 2021-02-07 09:53 | Progress Note ---
Assessment and Plan Assessment and plan: --Acute metabolic Encephalopathy (resolving) CT of the head and urine drug test-negative MRI of brain ordered unable to do due to lack of consent intiall. improved Chest x-ray negative for acute finding Consulted neurologist Patient appears to be at baseline --Febrile illness; in the setting of an encephalopathy on admission ID evaluated the patient, treated with empiric antibiotics, requested LP/MRI, no family available, to give consent And patient is agitated and confused requiring restraints --Hyponatremia/resolved hyponaremia mild-likely 2/2 dehydration continue IV hydration -- Hypertension Continue current antihypertensives. Monitor blood pressure PRN Hydralazine -- Possible Seizure disorder Seizure precautions, antiepileptic medications, neurology consult --?ETOH abuse thiamine, folic acid Closely monitor for alcohol withdrawal symptoms. --History of schizophrenia Continue psych medications psych consulted Closely monitor --DVT prophylaxis Subcutaneous Lovenox Daily Hospital course: 12/28: Patient now with fever of unknown origin. Still confused discussed with ID will obtain lumbar puncture. 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 MRI is pending. 12/29: Still with low grade fever, continue abx, follow cultures, LP to be done on thursday due to no Radiologist, Neurology input noted. Swallow eval ok, continue diet. start on HCTZ and Norvasc for HTN. No history on patient available here yet.] Want CT of the head read as negative during neurologist did review any suspect an acute ischemic stroke starting the patient on aspirin 81 mg daily unfortunately this was not started yesterday not sure why but will start that today. EEG is also ordered for possible subclinical seizures. He refused an ABG. Continue restraints as 12/30: Patient still with confusion, I wonder if he has some etoh issues, will go ahead and start on CIWA protocol in addition to Banana bag. CONTINUE restraints. 12/31: I was able to obtain records from [facility] as patient was recently admitted there on December 20 he was discharged on vitamin B12 1000 mcg daily, ferrous sulfate 325 mg twice a day and Keppra 1000 mg every 12 hours in addition to rest. Do not 1 tablet 2 times a day of 2 mg each. He does have underlying schizophrenia prior history of cocaine abuse and also history of seizure disorde r and severe neurocognitive disorder. His court appointed [employer] agent is Grace Padilla phone #[phone]. At the time of his discharge from [facility] he was supposed to be placed in a personal prison as he has a history of wandering. I am not sure if this was done. As he was brought to us "found in the aguirre". Clinically he is showing some improvement but with the new information will obtain psych consultation. 01/01; could not do the MRI/LP due to his severe agitation And noncooperation, will try MRI study again tomorrow with Ativan 01/02; radiology cannot do lumbar puncture/MRI study due to patient's severe agitation requiring four-point restraints And no family/automotive parts counter person available to consent for the above tests when patient is calm and stable 01/03; patient continues to be agitated requiring restraints, noncooperative and unsteady for lumbar punctures and MRI Patient has no family to give consent, case management informed 01/04; patient is more calm, however gets agitated, CM informed me that patient's Michelle Padilla court appointed guardian, will call me To discuss and give consent for the tests and procedures ,waiting for patient's guardian call 01/05; still waiting for patient's guardian Indra Padilla to call and give consent for MRI/LP 01/06: Did not get a call from the patient's guardian Indra Padilla [Case management stated that patient's guardian will call me ] 01/07; patient's guardian Michelle Padilla did not contact me , CM could not reach her. No consent for LP/MRI Possible placement to [facility]. Discharge planning per case management 01/08: Patient remains restrained, continue to follow clinically. proposal manager working on placement 01/09: employment case manager working on SNF placement, follow clinically, patient remains confused and requiring restraints. Continue empiric antibiotics per ID recommendation. 01/10: Last day of antibiotic today, pending SNF placement 01/11: Completed empiric antibiotics, pending SNF placement, patient remains confused. We will monitor off restrain, continue supportive care 01/12: Pending SNF placement, continue to monitor off restrain, provide supportive care 01/13: continue to monitor off restrain, provide supportive care. pending SNF placement 01/14: pending SNF placement, continue to monitor off restrain, provide supportive care 01/22: Patient clinically stable, pending placement. 01/23: follow clinically, d/c when placement available 01/24: Patient denies any acute issue, resting on bed. Pending placement 01/25: no distress, pending placement. 01/26: Patient clinically stable, pending placement. 01/27; 01/25: no distress, pending placement. 01/28: Patient clinically stable, pending placement. cont supportive care 01/29/2021: Patient is calm, no behavioral issues reported. Vital signs stable. Awaiting placement. 01/30/2021: Patient is calm, no behavioral issues reported. Vital signs stable. Awaiting placement. 01/31/2021: Patient is psychotic but calm, no behavioral issues reported. Vital signs stable. Awaiting placement. 02/01/2021: Patient is calm. No behavioral issues reported. All vital signs are stable. Discussed with case management regarding placement. proposal manager is assured me that she is calling every day and following up with [facility] in [place] 02/02/21: Awaiting placement 02/03: awaiting placement. 02/04: awaiting placement. discussed in CM rounds this AM. SW/CM working to finalize placement. 02/05: Awaiting placement and will follow up with case management with regards to disposition 02/06: No new issues. Patient awaiting placement 02/07: No new issues. Patient awaiting placement History Interval history: No new issues overnight. Hospitalist Physical - Constitutional Vitals: Temp Pulse Resp BP Pulse Ox 97.2 F L 67 18 123/75 97 02/07/21 07:46 02/07/21 07:46 02/07/21 07:46 02/07/21 07:46 02/07/21 08:13 General appearance: Present: no acute distress, well-nourished - EENT Eyes: Present: PERRL, EOM intact ENT: hearing intact, clear oral mucosa, dentition normal - Neck Neck: Present: supple, normal ROM - Respiratory Respiratory effort: normal Respiratory: bilateral: CTA - Cardiovascular Rhythm: regular Heart Sounds: Present: S1 & S2. Absent: gallop, rub - Extremities Extremities: no ischemia, No edema, Full ROM - Abdominal General gastrointestinal: soft, non-tender, non-distended, normal bowel sounds - Integumentary Integumentary: Present: clear, warm, dry - Neurologic Neurologic: CNII-XII intact, moves all extremities Results - Labs CBC & Chem 7: 01/22/21 04:47 01/22/21 04:47 Labs: Laboratory Last Values WBC 5.9 K/mm3 (4.5-11.0) 01/22/21 04:47 RBC 5.10 M/mm3 (3.65-5.03) H 01/22/21 04:47 Hgb 11.3 gm/dl (11.8-15.2) L 01/22/21 04:47 Hct 36.5 % (35.5-45.6) 01/22/21 04:47 MCV 72 fl (84-94) L 01/22/21 04:47 MCH 22 pg (28-32) L 01/22/21 04:47 MCHC 31 % (32-34) L 01/22/21 04:47 RDW 15.5 % (13.2-15.2) H 01/22/21 04:47 Plt Count 270 K/mm3 (140-440) 01/22/21 04:47 Lymph % (Auto) 6.4 % (13.4-35.0) L 12/27/20 17:34 Titus % (Auto) 3.9 % (0.0-7.3) 12/27/20 17:34 Eos % (Auto) 0.2 % (0.0-4.3) 12/27/20 17:34 Baso % (Auto) [employer] Production [employer] 01/14/21 07:27 Lymph # (Auto) 0.7 K/mm3 (1.2-5.4) L 12/27/20 17:34 Titus # (Auto) 0.4 K/mm3 (0.0-0.8) 12/27/20 17:34 Eos # (Auto) 0.0 K/mm3 (0.0-0.4) 12/27/20 17:34 Baso # (Auto) 0.1 K/mm3 (0.0-0.1) 12/27/20 17:34 Add Manual Diff Complete 01/14/21 07:27 Total Counted 100 01/14/21 07:27 Seg Neutrophils % 89.0 % (40.0-70.0) H 12/27/20 17:34 Seg Neuts % (Manual) 76.0 % (40.0-70.0) H 01/14/21 07:27 Band Neutrophils % 1.0 % 01/14/21 07:27 Lymphocytes % (Manual) 8.0 % (13.4-35.0) L 01/14/21 07:27 Reactive Lymphs % (Man) 1.0 % 01/14/21 07:27 Monocytes % (Manual) 4.0 % (0.0-7.3) 01/14/21 07:27 Eosinophils % (Manual) 1.0 % (0.0-4.3) 01/14/21 07:27 Myelocytes % 9.0 % 01/14/21 07:27 Nucleated RBC % Not Reportable 01/14/21 07:27 Seg Neutrophils # 9.5 K/mm3 (1.8-7.7) H 12/27/20 17:34 Seg Neutrophils # Man 4.5 K/mm3 (1.8-7.7) 01/14/21 07:27 Band Neutrophils # 0.1 K/mm3 01/14/21 07:27 Lymphocytes # (Manual) 0.5 K/mm3 (1.2-5.4) L 01/14/21 07:27 Abs React Lymphs (Man) 0.1 K/mm3 01/14/21 07:27 Monocytes # (Manual) 0.2 K/mm3 (0.0-0.8) 01/14/21 07:27 Eosinophils # (Manual) 0.1 K/mm3 (0.0-0.4) 01/14/21 07:27 Basophils # (Manual) 0.0 K/mm3 (0.0-0.1) 01/14/21 07:27 Metamyelocytes # 0.0 K/mm3 01/14/21 07:27 Myelocytes # 0.5 K/mm3 01/14/21 07:27 Promyelocytes # 0.0 K/mm3 01/14/21 07:27 Blast Cells # 0.0 K/mm3 01/14/21 07:27 WBC Morphology Not Reportable 01/14/21 07:27 Hypersegmented Neuts Not Reportable 01/14/21 07:27 Hyposegmented Neuts Not Reportable 01/14/21 07:27 Hypogranular Neuts Not Reportable 01/14/21 07:27 Smudge Cells Not Reportable 01/14/21 07:27 Toxic Granulation Not Reportable 01/14/21 07:27 Toxic Vacuolation Not Reportable 01/14/21 07:27 Dohle Bodies Not Reportable 01/14/21 07:27 Pelger-Huet Anomaly Not Reportable 01/14/21 07:27 Diana Rods Not Reportable 01/14/21 07:27 Platelet Estimate Consistent w auto 01/14/21 07:27 Clumped Platelets Not Reportable 01/14/21 07:27 Plt Clumps, EDTA Not Reportable 01/14/21 07:27 Large Platelets Not Reportable 01/14/21 07:27 Giant Platelets Not Reportable 01/14/21 07:27 Platelet Satelliting Not Reportable 01/14/21 07:27 Plt Morphology Comment Not Reportable 01/14/21 07:27 RBC Morphology Not Reportable 01/14/21 07:27 Dimorphic RBCs Not Reportable 01/14/21 07:27 Polychromasia Not Reportable 01/14/21 07:27 Hypochromasia Not Reportable 01/14/21 07:27 Poikilocytosis Not Reportable 01/14/21 07:27 Anisocytosis Not Reportable 01/14/21 07:27 Microcytosis Not Reportable 01/14/21 07:27 Macrocytosis Not Reportable 01/14/21 07:27 Spherocytes Not Reportable 01/14/21 07:27 Pappenheimer Bodies Not Reportable 01/14/21 07:27 Sickle Cells Not Reportable 01/14/21 07:27 Target Cells Not Reportable 01/14/21 07:27 Tear Drop Cells Not Reportable 01/14/21 07:27 Ovalocytes Not Reportable 01/14/21 07:27 Helmet Cells Not Reportable 01/14/21 07:27 Solano-Kerr Bodies Not Reportable 01/14/21 07:27 Dalzell Rings Not Reportable 01/14/21 07:27 Aakash Cells Not Reportable 01/14/21 07:27 Bite Cells Not Reportable 01/14/21 07:27 Crenated Cell Not Reportable 01/14/21 07:27 Elliptocytes Not Reportable 01/14/21 07:27 Acanthocytes (Spur) Not Reportable 01/14/21 07:27 Rouleaux Not Reportable 01/14/21 07:27 Hemoglobin C Crystals Not Reportable 01/14/21 07:27 Schistocytes Not Reportable 01/14/21 07:27 Malaria parasites Not Reportable 01/14/21 07:27 Johnathon Bodies Not Reportable 01/14/21 07:27 Hem Pathologist Commnt No 01/14/21 07:27 Sodium 140 mmol/L (137-145) 01/22/21 04:47 Potassium 3.8 mmol/L (3.6-5.0) 01/22/21 04:47 Chloride 101.3 mmol/L (98-107) 01/22/21 04:47 Carbon Dioxide 28 mmol/L (22-30) 01/22/21 04:47 Anion Gap 15 mmol/L 01/22/21 04:47 BUN 16 mg/dL (9-20) 01/22/21 04:47 Creatinine 0.8 mg/dL (0.8-1.3) 01/22/21 04:47 Estimated GFR > 60 ml/min 01/22/21 04:47 BUN/Creatinine Ratio 20 % 01/22/21 04:47 Glucose 103 mg/dL (75-100) H 01/22/21 04:47 POC Glucose 112 mg/dL (70-105) H 12/29/20 00:14 Lactic Acid 1.30 mmol/L (0.7-2.0) 12/28/20 08:13 Calcium 9.0 mg/dL (8.4-10.2) 01/22/21 04:47 Phosphorus 3.70 mg/dL (2.5-4.5) 12/30/20 13:13 Magnesium 2.10 mg/dL (1.7-2.3) 12/30/20 13:13 Total Bilirubin 0.50 mg/dL (0.1-1.2) 12/31/20 05:02 Direct Bilirubin < 0.2 mg/dL (0-0.2) 12/27/20 17:34 Indirect Bilirubin 0.2 mg/dL 12/27/20 17:34 AST 19 units/L (5-40) 12/31/20 05:02 ALT 12 units/L (7-56) 12/31/20 05:02 Alkaline Phosphatase 72 units/L (35-129) 12/31/20 05:02 Ammonia 21.0 umol/L (25-60) L 12/30/20 13:13 Total Protein 7.1 g/dL (6.3-8.2) 12/31/20 05:02 Albumin 3.7 g/dL (3.9-5) L 12/31/20 05:02 Albumin/Globulin Ratio 1.1 % 12/31/20 05:02 Urine Color Straw (Yellow) 12/28/20 02:15 Urine Turbidity Clear (Clear) 12/28/20 02:15 Urine pH 5.0 (5.0-7.0) 12/28/20 02:15 Ur Specific [place] 1.025 (1.003-1.030) 12/28/20 02:15 Urine Protein 100 mg/dl mg/dL (Negative) 12/28/20 02:15 Urine Glucose (UA) Negative mg/dL (Negative) 12/28/20 02:15 Urine Ketones Negative mg/dL (Negative) 12/28/20 02:15 Urine Blood Small (Negative) A 12/28/20 02:15 Urine Nitrite Negative (Negative) 12/28/20 02:15 Ur Reducing Substances Not Reportable 12/28/20 02:15 Urine Bilirubin Negative (Negative) 12/28/20 02:15 Urine Ictotest Not Reportable 12/28/20 02:15 Urine Urobilinogen < 2.0 mg/dL (<2.0) 12/28/20 02:15 Ur Leukocyte Esterase Negative (Negative) 12/28/20 02:15 Urine WBC (Auto) 3.0 /HPF (0.0-6.0) 12/28/20 02:15 Urine RBC (Auto) 4.0 /HPF (0.0-6.0) 12/28/20 02:15 U Epithel Cells (Auto) < 1.0 /HPF (0-13.0) 12/28/20 02:15 Hyaline Casts 1 /LPF 12/28/20 02:15 Granular Casts 1 /LPF 12/28/20 02:15 Urine Mucus Few /HPF 12/28/20 02:15 Salicylates < 0.3 mg/dL (2.8-20.0) L 12/27/20 17:34 Urine Opiates Screen Negative 12/27/20 17:11 Urine Methadone Screen Negative 12/27/20 17:11 Acetaminophen 5.0 ug/mL (10.0-30.0) L 12/27/20 17:34 Ur Barbiturates Screen Negative 12/27/20 17:11 Ur Phencyclidine Scrn Negative 12/27/20 17:11 Ur Amphetamines Screen Negative 12/27/20 17:11 U Benzodiazepines Scrn Negative 12/27/20 17:11 Urine Cocaine Screen Negative 12/27/20 17:11 U Marijuana (THC) Screen Negative 12/27/20 17:11 Drugs of Abuse Note Disclamer 12/27/20 17:11 Plasma/Serum Alcohol < 0.01 % (0-0.07) 12/27/20 17:34 [place]/IV: Voiding Method Toilet Active Medications - Current Medications Current Medications: Generic Name Dose Route Start Last Admin Trade Name Freq PRN Reason Stop Dose Admin Amlodipine Besylate 2.5 mg 12/29/20 10:00 02/07/21 09:18 Amlodipine 5 Mg Tab PO 2.5 mg QDAY CHELLE Administration Aspirin 81 mg 12/29/20 10:00 02/07/21 09:18 Aspirin 81 Mg Tab Chew PO 81 mg QDAY CHELLE Administration Atorvastatin Calcium 40 mg 12/29/20 22:00 02/06/21 22:58 Atorvastatin 40 Mg Tab PO 40 mg QHS CHELLE Administration Cyanocobalamin 1,000 mcg 12/31/20 15:00 02/07/21 09:18 Cyanocobalamin (Vit B-12) 1000 Mcg Tab PO 1,000 mcg QDAY CHELLE Administration Enoxaparin Sodium 40 mg 12/28/20 10:00 02/07/21 09:18 Enoxaparin 40 Mg/0.4 Ml Inj SUB-Q 40 mg QDAY CHELLE Administration Folic Acid 1 mg 01/03/21 10:00 02/07/21 09:18 Folic Acid 1 Mg Tab PO 1 mg DAILY CHELLE Administration Hydrochlorothiazide 25 mg 12/29/20 10:00 02/07/21 09:18 Hydrochlorothiazide 25 Mg Tab PO 25 mg QDAY CHELLE Administration Levetiracetam 500 mg 01/02/21 10:00 02/07/21 09:18 Levetiracetam 500 Mg Tab PO 500 mg BID CHELLE Administration Lorazepam 2 mg 12/30/20 11:00 12/30/20 22:21 Lorazepam 2 Mg/Ml Vial IV 2 mg Q1HR PRN Administration CIWA-Ar 8-15 Lorazepam 4 mg 12/30/20 11:00 Lorazepam 2 Mg/Ml Vial IV Q1HR PRN CIWA-Ar 16-25 Multivitamins/Minerals 1 each 01/03/21 10:00 02/07/21 09:18 Multivitamins,Ther W-Minerals Tab PO 1 each QDAY CHELLE Administration Risperidone 1 mg 12/31/20 22:00 02/07/21 09:18 Risperidone 1 Mg Tab PO 1 mg BID CHELLE Administration Sodium Chloride 10 ml 12/28/20 10:00 02/07/21 09:19 Sodium Chloride 0.9% 10 Ml Flush Syringe IV Not Given BID CHELLE Thiamine HCl 100 mg 01/03/21 10:00 02/07/21 09:18 Thiamine 100 Mg Tab PO 100 mg QDAY CHELLE Administration Nutrition/Malnutrition Assess - Dietary Evaluation Nutrition/Malnutrition Findings: Nutrition Notes Start: 01/03/21 16:36 Freq: Status: Active Protocol: Document 01/31/21 16:24 RADHA (Rec: 01/31/21 16:41 RADHA [id number]) Nutrition Notes Initial or Follow up Reassessment Current Diagnosis Hypertension Other Pertinent Diagnosis Acute metabolic encephalopathy , EtOH withdrawal, schizophrenia Current Diet Regular Diet (since L 12/29). Labs/Tests 01/22: Last labs available: Nutritionally unremarkable. Pertinent Medications 01/31: Vitamin B12, Folic Acid , multivitamins/minerals, Vit B1, others nutritionally unremarkable. Height 6 ft Weight 91.2 kg [place] Body Weight (kg) 80.90 BMI 27.2 Weight change and time frame No new weights in past week since last assessment Weight Status Overweight Subjective/Other Information 01/31 consult for F/U. Pt awaiting placement. note 01/16: pt cleared for discharge Burn Absent Trauma Absent GI Symptoms None Food Allergy No Skin Integrity/Comment no complications reported Current % PO Good (75-100%) Minimum of two criteria No #1 Nutrition Diagnosis No nutrition diagnosis at this time Comments: Pt PO intake has been consistently Good at 100%. Pt awiting for placement. Is patient on ventilator? No Is Patient Ambulatory and/or Out of Bed No REE-([place]-confined [facility] bed) 2116.668 Kcal/Kg value to use for calculation 20 Approximate Energy Requirements Using 1824 kcal/Kg Calculation Used for Recommendations William Gordon Additional Notes Protein: 0.8-1 g/kg; 65-81 g/ Kg (from IBW). Fluids: 1 ml/kcal, or as per MD. Nutrition Intervention Change Diet Order: Continue Regular Diet. Goal #1 Maintain body weight within +/ -3% of current BWt during LOS. Goal #2 Reach and maintain acceptable chemistry lab values during LOS. Follow-Up By: 02/14/21 Additional Comments Continue to monitor food tolerance, %PO intake of meals , Hydration, and BM.
[2021-02-08] MEDS: risperiDONE 1 MG TAB PO SCH ×2 (09:44→21:16)
[2021-02-08] MEDS: FOLIC ACID 1 MG TAB PO SCH (09:44)
[2021-02-08] MEDS: MULTIVITAMINS,THER W-MINERALS TAB PO SCH (09:44)
[2021-02-08] MEDS: amLODIPine 5 MG TAB PO SCH (09:44)
[2021-02-08] MEDS: levETIRAcetam 500 MG TAB PO SCH ×2 (09:45→21:16)
[2021-02-08] MEDS: THIAMINE 100 MG TAB PO SCH (09:45)
[2021-02-08] MEDS: CYANOCOBALAMIN (VIT B-12) 1000 MCG TAB PO SCH (09:45)
[2021-02-08] MEDS: ASPIRIN 81 MG TAB CHEW PO SCH (09:45)
[2021-02-08] MEDS: hydroCHLOROthiazide 25 MG TAB PO SCH (09:45)
[2021-02-08] MEDS: ENOXAPARIN 40 MG/0.4 ML INJ SUB-Q SCH (09:46)
--- NOTE | 2021-02-08 10:05 | Progress Note ---
Assessment and Plan Assessment and plan: --Acute metabolic Encephalopathy (resolving) CT of the head and urine drug test-negative MRI of brain ordered unable to do due to lack of consent intiall. improved Chest x-ray negative for acute finding Consulted neurologist Patient appears to be at baseline --Febrile illness; in the setting of an encephalopathy on admission ID evaluated the patient, treated with empiric antibiotics, requested LP/MRI, no family available, to give consent And patient is agitated and confused requiring restraints --Hyponatremia/resolved hyponaremia mild-likely 2/2 dehydration continue IV hydration -- Hypertension Continue current antihypertensives. Monitor blood pressure PRN Hydralazine -- Possible Seizure disorder Seizure precautions, antiepileptic medications, neurology consult --?ETOH abuse thiamine, folic acid Closely monitor for alcohol withdrawal symptoms. --History of schizophrenia Continue psych medications psych consulted Closely monitor --DVT prophylaxis Subcutaneous Lovenox Daily Hospital course: 12/28: Patient now with fever of unknown origin. Still confused discussed with ID will obtain lumbar puncture. 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 MRI is pending. 12/29: Still with low grade fever, continue abx, follow cultures, LP to be done on thursday due to no Radiologist, Neurology input noted. Swallow eval ok, continue diet. start on HCTZ and Norvasc for HTN. No history on patient available here yet.] Want CT of the head read as negative during neurologist did review any suspect an acute ischemic stroke starting the patient on aspirin 81 mg daily unfortunately this was not started yesterday not sure why but will start that today. EEG is also ordered for possible subclinical seizures. He refused an ABG. Continue restraints as 12/30: Patient still with confusion, I wonder if he has some etoh issues, will go ahead and start on CIWA protocol in addition to Banana bag. CONTINUE restraints. 12/31: I was able to obtain records from [facility] as patient was recently admitted there on December 20 he was discharged on vitamin B12 1000 mcg daily, ferrous sulfate 325 mg twice a day and Keppra 1000 mg every 12 hours in addition to rest. Do not 1 tablet 2 times a day of 2 mg each. He does have underlying schizophrenia prior history of cocaine abuse and also history of seizure disorde r and severe neurocognitive disorder. His court appointed [employer] agent is Grace Padilla phone #[phone]. At the time of his discharge from [facility] he was supposed to be placed in a personal snf as he has a history of wandering. I am not sure if this was done. As he was brought to us "found in the aguirre". Clinically he is showing some improvement but with the new information will obtain psych consultation. 01/01; could not do the MRI/LP due to his severe agitation And noncooperation, will try MRI study again tomorrow with Ativan 01/02; radiology cannot do lumbar puncture/MRI study due to patient's severe agitation requiring four-point restraints And no family/contact assembler available to consent for the above tests when patient is calm and stable 01/03; patient continues to be agitated requiring restraints, noncooperative and unsteady for lumbar punctures and MRI Patient has no family to give consent, case management informed 01/04; patient is more calm, however gets agitated, CM informed me that patient's Michelle Padilla court appointed guardian, will call me To discuss and give consent for the tests and procedures ,waiting for patient's guardian call 01/05; still waiting for patient's guardian Indra Padilla to call and give consent for MRI/LP 01/06: Did not get a call from the patient's guardian Indra Padilla [Case management stated that patient's guardian will call me ] 01/07; patient's guardian Michelle Padilla did not contact me , CM could not reach her. No consent for LP/MRI Possible placement to [facility]. Discharge planning per case management 01/08: Patient remains restrained, continue to follow clinically. manager utilization working on placement 01/09: case specialist working on SNF placement, follow clinically, patient remains confused and requiring restraints. Continue empiric antibiotics per ID recommendation. 01/10: Last day of antibiotic today, pending SNF placement 01/11: Completed empiric antibiotics, pending SNF placement, patient remains confused. We will monitor off restrain, continue supportive care 01/12: Pending SNF placement, continue to monitor off restrain, provide supportive care 01/13: continue to monitor off restrain, provide supportive care. pending SNF placement 01/14: pending SNF placement, continue to monitor off restrain, provide supportive care 01/22: Patient clinically stable, pending placement. 01/23: follow clinically, d/c when placement available 01/24: Patient denies any acute issue, resting on bed. Pending placement 01/25: no distress, pending placement. 01/26: Patient clinically stable, pending placement. 01/27; 01/25: no distress, pending placement. 01/28: Patient clinically stable, pending placement. cont supportive care 01/29/2021: Patient is calm, no behavioral issues reported. Vital signs stable. Awaiting placement. 01/30/2021: Patient is calm, no behavioral issues reported. Vital signs stable. Awaiting placement. 01/31/2021: Patient is psychotic but calm, no behavioral issues reported. Vital signs stable. Awaiting placement. 02/01/2021: Patient is calm. No behavioral issues reported. All vital signs are stable. Discussed with case management regarding placement. manager utilization is assured me that she is calling every day and following up with [facility] in [place] 02/02/21: Awaiting placement 02/03: awaiting placement. 02/04: awaiting placement. discussed in CM rounds this AM. SW/CM working to finalize placement. 02/05: Awaiting placement and will follow up with case management with regards to disposition 02/06: No new issues. Patient awaiting placement 02/07: No new issues. Patient awaiting placement 02/08: No new issues. Patient awaiting placement History Interval history: No new issues overnight. Hospitalist Physical - Constitutional Vitals: Temp Pulse Resp BP Pulse Ox 98.8 F 71 16 99/62 93 02/08/21 07:28 02/08/21 07:28 02/08/21 07:28 02/08/21 07:28 02/08/21 07:28 General appearance: Present: no acute distress, well-nourished - EENT Eyes: Present: PERRL, EOM intact ENT: hearing intact, clear oral mucosa, dentition normal - Neck Neck: Present: supple, normal ROM - Respiratory Respiratory effort: normal Respiratory: bilateral: CTA - Cardiovascular Rhythm: regular Heart Sounds: Present: S1 & S2. Absent: gallop, rub - Extremities Extremities: no ischemia, No edema, Full ROM - Abdominal General gastrointestinal: soft, non-tender, non-distended, normal bowel sounds - Integumentary Integumentary: Present: clear, warm, dry - Neurologic Neurologic: CNII-XII intact, moves all extremities Results - Labs CBC & Chem 7: 01/22/21 04:47 01/22/21 04:47 Labs: Laboratory Last Values WBC 5.9 K/mm3 (4.5-11.0) 01/22/21 04:47 RBC 5.10 M/mm3 (3.65-5.03) H 01/22/21 04:47 Hgb 11.3 gm/dl (11.8-15.2) L 01/22/21 04:47 Hct 36.5 % (35.5-45.6) 01/22/21 04:47 MCV 72 fl (84-94) L 01/22/21 04:47 MCH 22 pg (28-32) L 01/22/21 04:47 MCHC 31 % (32-34) L 01/22/21 04:47 RDW 15.5 % (13.2-15.2) H 01/22/21 04:47 Plt Count 270 K/mm3 (140-440) 01/22/21 04:47 Lymph % (Auto) 6.4 % (13.4-35.0) L 12/27/20 17:34 Runnels % (Auto) 3.9 % (0.0-7.3) 12/27/20 17:34 Eos % (Auto) 0.2 % (0.0-4.3) 12/27/20 17:34 Baso % (Auto) Engine Oiler 01/14/21 07:27 Lymph # (Auto) 0.7 K/mm3 (1.2-5.4) L 12/27/20 17:34 Runnels # (Auto) 0.4 K/mm3 (0.0-0.8) 12/27/20 17:34 Eos # (Auto) 0.0 K/mm3 (0.0-0.4) 12/27/20 17:34 Baso # (Auto) 0.1 K/mm3 (0.0-0.1) 12/27/20 17:34 Add Manual Diff Complete 01/14/21 07:27 Total Counted 100 01/14/21 07:27 Seg Neutrophils % 89.0 % (40.0-70.0) H 12/27/20 17:34 Seg Neuts % (Manual) 76.0 % (40.0-70.0) H 01/14/21 07:27 Band Neutrophils % 1.0 % 01/14/21 07:27 Lymphocytes % (Manual) 8.0 % (13.4-35.0) L 01/14/21 07:27 Reactive Lymphs % (Man) 1.0 % 01/14/21 07:27 Monocytes % (Manual) 4.0 % (0.0-7.3) 01/14/21 07:27 Eosinophils % (Manual) 1.0 % (0.0-4.3) 01/14/21 07:27 Myelocytes % 9.0 % 01/14/21 07:27 Nucleated RBC % Not Reportable 01/14/21 07:27 Seg Neutrophils # 9.5 K/mm3 (1.8-7.7) H 12/27/20 17:34 Seg Neutrophils # Man 4.5 K/mm3 (1.8-7.7) 01/14/21 07:27 Band Neutrophils # 0.1 K/mm3 01/14/21 07:27 Lymphocytes # (Manual) 0.5 K/mm3 (1.2-5.4) L 01/14/21 07:27 Abs React Lymphs (Man) 0.1 K/mm3 01/14/21 07:27 Monocytes # (Manual) 0.2 K/mm3 (0.0-0.8) 01/14/21 07:27 Eosinophils # (Manual) 0.1 K/mm3 (0.0-0.4) 01/14/21 07:27 Basophils # (Manual) 0.0 K/mm3 (0.0-0.1) 01/14/21 07:27 Metamyelocytes # 0.0 K/mm3 01/14/21 07:27 Myelocytes # 0.5 K/mm3 01/14/21 07:27 Promyelocytes # 0.0 K/mm3 01/14/21 07:27 Blast Cells # 0.0 K/mm3 01/14/21 07:27 WBC Morphology Not Reportable 01/14/21 07:27 Hypersegmented Neuts Not Reportable 01/14/21 07:27 Hyposegmented Neuts Not Reportable 01/14/21 07:27 Hypogranular Neuts Not Reportable 01/14/21 07:27 Smudge Cells Not Reportable 01/14/21 07:27 Toxic Granulation Not Reportable 01/14/21 07:27 Toxic Vacuolation Not Reportable 01/14/21 07:27 Dohle Bodies Not Reportable 01/14/21 07:27 Pelger-Huet Anomaly Not Reportable 01/14/21 07:27 Diana Rods Not Reportable 01/14/21 07:27 Platelet Estimate Consistent w auto 01/14/21 07:27 Clumped Platelets Not Reportable 01/14/21 07:27 Plt Clumps, EDTA Not Reportable 01/14/21 07:27 Large Platelets Not Reportable 01/14/21 07:27 Giant Platelets Not Reportable 01/14/21 07:27 Platelet Satelliting Not Reportable 01/14/21 07:27 Plt Morphology Comment Not Reportable 01/14/21 07:27 RBC Morphology Not Reportable 01/14/21 07:27 Dimorphic RBCs Not Reportable 01/14/21 07:27 Polychromasia Not Reportable 01/14/21 07:27 Hypochromasia Not Reportable 01/14/21 07:27 Poikilocytosis Not Reportable 01/14/21 07:27 Anisocytosis Not Reportable 01/14/21 07:27 Microcytosis Not Reportable 01/14/21 07:27 Macrocytosis Not Reportable 01/14/21 07:27 Spherocytes Not Reportable 01/14/21 07:27 Pappenheimer Bodies Not Reportable 01/14/21 07:27 Sickle Cells Not Reportable 01/14/21 07:27 Target Cells Not Reportable 01/14/21 07:27 Tear Drop Cells Not Reportable 01/14/21 07:27 Ovalocytes Not Reportable 01/14/21 07:27 Helmet Cells Not Reportable 01/14/21 07:27 Solano-Toppers Bodies Not Reportable 01/14/21 07:27 [place] Rings Not Reportable 01/14/21 07:27 Aakash Cells Not Reportable 01/14/21 07:27 Bite Cells Not Reportable 01/14/21 07:27 Crenated Cell Not Reportable 01/14/21 07:27 Elliptocytes Not Reportable 01/14/21 07:27 Acanthocytes (Spur) Not Reportable 01/14/21 07:27 Rouleaux Not Reportable 01/14/21 07:27 Hemoglobin C Crystals Not Reportable 01/14/21 07:27 Schistocytes Not Reportable 01/14/21 07:27 Malaria parasites Not Reportable 01/14/21 07:27 Johnathon Bodies Not Reportable 01/14/21 07:27 Hem Pathologist Commnt No 01/14/21 07:27 Sodium 140 mmol/L (137-145) 01/22/21 04:47 Potassium 3.8 mmol/L (3.6-5.0) 01/22/21 04:47 Chloride 101.3 mmol/L (98-107) 01/22/21 04:47 Carbon Dioxide 28 mmol/L (22-30) 01/22/21 04:47 Anion Gap 15 mmol/L 01/22/21 04:47 BUN 16 mg/dL (9-20) 01/22/21 04:47 Creatinine 0.8 mg/dL (0.8-1.3) 01/22/21 04:47 Estimated GFR > 60 ml/min 01/22/21 04:47 BUN/Creatinine Ratio 20 % 01/22/21 04:47 Glucose 103 mg/dL (75-100) H 01/22/21 04:47 POC Glucose 112 mg/dL (70-105) H 12/29/20 00:14 Lactic Acid 1.30 mmol/L (0.7-2.0) 12/28/20 08:13 Calcium 9.0 mg/dL (8.4-10.2) 01/22/21 04:47 Phosphorus 3.70 mg/dL (2.5-4.5) 12/30/20 13:13 Magnesium 2.10 mg/dL (1.7-2.3) 12/30/20 13:13 Total Bilirubin 0.50 mg/dL (0.1-1.2) 12/31/20 05:02 Direct Bilirubin < 0.2 mg/dL (0-0.2) 12/27/20 17:34 Indirect Bilirubin 0.2 mg/dL 12/27/20 17:34 AST 19 units/L (5-40) 12/31/20 05:02 ALT 12 units/L (7-56) 12/31/20 05:02 Alkaline Phosphatase 72 units/L (35-129) 12/31/20 05:02 Ammonia 21.0 umol/L (25-60) L 12/30/20 13:13 Total Protein 7.1 g/dL (6.3-8.2) 12/31/20 05:02 Albumin 3.7 g/dL (3.9-5) L 12/31/20 05:02 Albumin/Globulin Ratio 1.1 % 12/31/20 05:02 Urine Color Straw (Yellow) 12/28/20 02:15 Urine Turbidity Clear (Clear) 12/28/20 02:15 Urine pH 5.0 (5.0-7.0) 12/28/20 02:15 Ur Specific [place] 1.025 (1.003-1.030) 12/28/20 02:15 Urine Protein 100 mg/dl mg/dL (Negative) 12/28/20 02:15 Urine Glucose (UA) Negative mg/dL (Negative) 12/28/20 02:15 Urine Ketones Negative mg/dL (Negative) 12/28/20 02:15 Urine Blood Small (Negative) A 12/28/20 02:15 Urine Nitrite Negative (Negative) 12/28/20 02:15 Ur Reducing Substances Not Reportable 12/28/20 02:15 Urine Bilirubin Negative (Negative) 12/28/20 02:15 Urine Ictotest Not Reportable 12/28/20 02:15 Urine Urobilinogen < 2.0 mg/dL (<2.0) 12/28/20 02:15 Ur Leukocyte Esterase Negative (Negative) 12/28/20 02:15 Urine WBC (Auto) 3.0 /HPF (0.0-6.0) 12/28/20 02:15 Urine RBC (Auto) 4.0 /HPF (0.0-6.0) 12/28/20 02:15 U Epithel Cells (Auto) < 1.0 /HPF (0-13.0) 12/28/20 02:15 Hyaline Casts 1 /LPF 12/28/20 02:15 Granular Casts 1 /LPF 12/28/20 02:15 Urine Mucus Few /HPF 12/28/20 02:15 Salicylates < 0.3 mg/dL (2.8-20.0) L 12/27/20 17:34 Urine Opiates Screen Negative 12/27/20 17:11 Urine Methadone Screen Negative 12/27/20 17:11 Acetaminophen 5.0 ug/mL (10.0-30.0) L 12/27/20 17:34 Ur Barbiturates Screen Negative 12/27/20 17:11 Ur Phencyclidine Scrn Negative 12/27/20 17:11 Ur Amphetamines Screen Negative 12/27/20 17:11 U Benzodiazepines Scrn Negative 12/27/20 17:11 Urine Cocaine Screen Negative 12/27/20 17:11 U Marijuana (THC) Screen Negative 12/27/20 17:11 Drugs of Abuse Note Disclamer 12/27/20 17:11 Plasma/Serum Alcohol < 0.01 % (0-0.07) 12/27/20 17:34 [place]/IV: Voiding Method Toilet Active Medications - Current Medications Current Medications: Generic Name Dose Route Start Last Admin Trade Name Freq PRN Reason Stop Dose Admin Amlodipine Besylate 2.5 mg 12/29/20 10:00 02/08/21 09:44 Amlodipine 5 Mg Tab PO 2.5 mg QDAY CHELLE Administration Aspirin 81 mg 12/29/20 10:00 02/08/21 09:45 Aspirin 81 Mg Tab Chew PO 81 mg QDAY CHELLE Administration Atorvastatin Calcium 40 mg 12/29/20 22:00 02/07/21 21:49 Atorvastatin 40 Mg Tab PO 40 mg QHS CHELLE Administration Cyanocobalamin 1,000 mcg 12/31/20 15:00 02/08/21 09:45 Cyanocobalamin (Vit B-12) 1000 Mcg Tab PO 1,000 mcg QDAY CHELLE Administration Enoxaparin Sodium 40 mg 12/28/20 10:00 02/08/21 09:46 Enoxaparin 40 Mg/0.4 Ml Inj SUB-Q 40 mg QDAY CHELLE Administration Folic Acid 1 mg 01/03/21 10:00 02/08/21 09:44 Folic Acid 1 Mg Tab PO 1 mg DAILY CHELLE Administration Hydrochlorothiazide 25 mg 12/29/20 10:00 02/08/21 09:45 Hydrochlorothiazide 25 Mg Tab PO 25 mg QDAY CHELLE Administration Levetiracetam 500 mg 01/02/21 10:00 02/08/21 09:45 Levetiracetam 500 Mg Tab PO 500 mg BID CHELLE Administration Lorazepam 2 mg 12/30/20 11:00 12/30/20 22:21 Lorazepam 2 Mg/Ml Vial IV 2 mg Q1HR PRN Administration CIWA-Ar 8-15 Lorazepam 4 mg 12/30/20 11:00 Lorazepam 2 Mg/Ml Vial IV Q1HR PRN CIWA-Ar 16-25 Multivitamins/Minerals 1 each 01/03/21 10:00 02/08/21 09:44 Multivitamins,Ther W-Minerals Tab PO 1 each QDAY CHELLE Administration Risperidone 1 mg 12/31/20 22:00 02/08/21 09:44 Risperidone 1 Mg Tab PO 1 mg BID CHELLE Administration Sodium Chloride 10 ml 12/28/20 10:00 02/07/21 21:50 Sodium Chloride 0.9% 10 Ml Flush Syringe IV Not Given BID CHELLE Thiamine HCl 100 mg 01/03/21 10:00 02/08/21 09:45 Thiamine 100 Mg Tab PO 100 mg QDAY CHELLE Administration Nutrition/Malnutrition Assess - Dietary Evaluation Nutrition/Malnutrition Findings: Nutrition Notes Start: 01/03/21 16:36 Freq: Status: Active Protocol: Document 01/31/21 16:24 RADHA (Rec: 01/31/21 16:41 RADHA [id number]) Nutrition Notes Initial or Follow up Reassessment Current Diagnosis Hypertension Other Pertinent Diagnosis Acute metabolic encephalopathy , EtOH withdrawal, schizophrenia Current Diet Regular Diet (since L 12/29). Labs/Tests 01/22: Last labs available: Nutritionally unremarkable. Pertinent Medications 01/31: Vitamin B12, Folic Acid , multivitamins/minerals, Vit B1, others nutritionally unremarkable. Height 6 ft Weight 91.2 kg [place] Body Weight (kg) 80.90 BMI 27.2 Weight change and time frame No new weights in past week since last assessment Weight Status Overweight Subjective/Other Information 01/31 RD consult for F/U. Pt awaiting placement. note 01/16: pt cleared for discharge Burn Absent Trauma Absent GI Symptoms None Food Allergy No Skin Integrity/Comment no complications reported Current % PO Good (75-100%) Minimum of two criteria No #1 Nutrition Diagnosis No nutrition diagnosis at this time Comments: Pt PO intake has been consistently Good at 100%. Pt awiting for placement. Is patient on ventilator? No Is Patient Ambulatory and/or Out of Bed No REE-([facility]-confined to bed) 2116.668 Kcal/Kg value to use for calculation 20 Approximate Energy Requirements Using 1824 kcal/Kg Calculation Used for Recommendations William Gordon Additional Notes Protein: 0.8-1 g/kg; 65-81 g/ Kg (from IBW). Fluids: 1 ml/kcal, or as per MD. Nutrition Intervention Change Diet Order: Continue Regular Diet. Goal #1 Maintain body weight within +/ -3% of current BWt during LOS. Goal #2 Reach and maintain acceptable chemistry lab values during LOS. Follow-Up By: 02/14/21 Additional Comments Continue to monitor food tolerance, %PO intake of meals , Hydration, and BM.
[2021-02-09] MEDS: ASPIRIN 81 MG TAB CHEW PO SCH (09:59)
[2021-02-09] MEDS: amLODIPine 5 MG TAB PO SCH (09:59)
[2021-02-09] MEDS: levETIRAcetam 500 MG TAB PO SCH ×2 (09:59→21:53)
[2021-02-09] MEDS: risperiDONE 1 MG TAB PO SCH ×2 (09:59→21:53)
[2021-02-09] MEDS: hydroCHLOROthiazide 25 MG TAB PO SCH (09:59)
[2021-02-09] MEDS: MULTIVITAMINS,THER W-MINERALS TAB PO SCH (09:59)
[2021-02-09] MEDS: CYANOCOBALAMIN (VIT B-12) 1000 MCG TAB PO SCH (09:59)
[2021-02-09] MEDS: ENOXAPARIN 40 MG/0.4 ML INJ SUB-Q SCH (10:00)
[2021-02-09] MEDS: FOLIC ACID 1 MG TAB PO SCH (10:00)
[2021-02-09] MEDS: THIAMINE 100 MG TAB PO SCH (10:00)
--- NOTE | 2021-02-09 10:07 | Progress Note ---
Assessment and Plan Assessment and plan: --Acute metabolic Encephalopathy (resolving) CT of the head and urine drug test-negative MRI of brain ordered unable to do due to lack of consent intiall. improved Chest x-ray negative for acute finding Consulted neurologist Patient appears to be at baseline --Febrile illness; in the setting of an encephalopathy on admission ID evaluated the patient, treated with empiric antibiotics, requested LP/MRI, no family available, to give consent And patient is agitated and confused requiring restraints --Hyponatremia/resolved hyponaremia mild-likely 2/2 dehydration continue IV hydration -- Hypertension Continue current antihypertensives. Monitor blood pressure PRN Hydralazine -- Possible Seizure disorder Seizure precautions, antiepileptic medications, neurology consult --?ETOH abuse thiamine, folic acid Closely monitor for alcohol withdrawal symptoms. --History of schizophrenia Continue psych medications psych consulted Closely monitor --DVT prophylaxis Subcutaneous Lovenox Daily Hospital course: 12/28: Patient now with fever of unknown origin. Still confused discussed with ID will obtain lumbar puncture. 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 MRI is pending. 12/29: Still with low grade fever, continue abx, follow cultures, LP to be done on thursday due to no Radiologist, Neurology input noted. Swallow eval ok, continue diet. start on HCTZ and Norvasc for HTN. No history on patient available here yet.] Want CT of the head read as negative during neurologist did review any suspect an acute ischemic stroke starting the patient on aspirin 81 mg daily unfortunately this was not started yesterday not sure why but will start that today. EEG is also ordered for possible subclinical seizures. He refused an ABG. Continue restraints as 12/30: Patient still with confusion, I wonder if he has some etoh issues, will go ahead and start on CIWA protocol in addition to Banana bag. CONTINUE restraints. 12/31: I was able to obtain records from [facility] as patient was recently admitted there on December 20 he was discharged on vitamin B12 1000 mcg daily, ferrous sulfate 325 mg twice a day and Keppra 1000 mg every 12 hours in addition to rest. Do not 1 tablet 2 times a day of 2 mg each. He does have underlying schizophrenia prior history of cocaine abuse and also history of seizure disorde r and severe neurocognitive disorder. His court appointed [employer] agent is Grace Padilla phone #[phone]. At the time of his discharge from [facility] he was supposed to be placed in a personal senior living as he has a history of wandering. I am not sure if this was done. As he was brought to us "found in the [facility]". Clinically he is showing some improvement but with the new information will obtain psych consultation. 01/01; could not do the MRI/LP due to his severe agitation And noncooperation, will try MRI study again tomorrow with Ativan 01/02; radiology cannot do lumbar puncture/MRI study due to patient's severe agitation requiring four-point restraints And no family/contact agent available to consent for the above tests when patient is calm and stable 01/03; patient continues to be agitated requiring restraints, noncooperative and unsteady for lumbar punctures and MRI Patient has no family to give consent, case management informed 01/04; patient is more calm, however gets agitated, CM informed me that patient's Michelle Padilla court appointed guardian, will call me To discuss and give consent for the tests and procedures ,waiting for patient's guardian call 01/05; still waiting for patient's guardian Indra Padilla to call and give consent for MRI/LP 01/06: Did not get a call from the patient's guardian Indra Padilla [Case management stated that patient's guardian will call me ] 01/07; patient's guardian Michelle Padilla did not contact me , CM could not reach her. No consent for LP/MRI Possible placement to [facility]. Discharge planning per case management 01/08: Patient remains restrained, continue to follow clinically. automation manager working on placement 01/09: family caseworker working on SNF placement, follow clinically, patient remains confused and requiring restraints. Continue empiric antibiotics per ID recommendation. 01/10: Last day of antibiotic today, pending SNF placement 01/11: Completed empiric antibiotics, pending SNF placement, patient remains confused. We will monitor off restrain, continue supportive care 01/12: Pending SNF placement, continue to monitor off restrain, provide supportive care 01/13: continue to monitor off restrain, provide supportive care. pending SNF placement 01/14: pending SNF placement, continue to monitor off restrain, provide supportive care 01/22: Patient clinically stable, pending placement. 01/23: follow clinically, d/c when placement available 01/24: Patient denies any acute issue, resting on bed. Pending placement 01/25: no distress, pending placement. 01/26: Patient clinically stable, pending placement. 01/27; 01/25: no distress, pending placement. 01/28: Patient clinically stable, pending placement. cont supportive care 01/29/2021: Patient is calm, no behavioral issues reported. Vital signs stable. Awaiting placement. 01/30/2021: Patient is calm, no behavioral issues reported. Vital signs stable. Awaiting placement. 01/31/2021: Patient is psychotic but calm, no behavioral issues reported. Vital signs stable. Awaiting placement. 02/01/2021: Patient is calm. No behavioral issues reported. All vital signs are stable. Discussed with case management regarding placement. automation manager is assured me that she is calling every day and following up with [facility] in [place] 02/02/21: Awaiting placement 02/03: awaiting placement. 02/04: awaiting placement. discussed in CM rounds this AM. SW/CM working to finalize placement. 02/05: Awaiting placement and will follow up with case management with regards to disposition 02/06: No new issues. Patient awaiting placement 02/07: No new issues. Patient awaiting placement 02/08: No new issues. Patient awaiting placement 02/09: No new issues. Patient awaiting placement History Interval history: No new issues overnight. Hospitalist Physical - Constitutional Vitals: Temp Pulse Resp BP Pulse Ox 98.2 F 92 H 18 118/69 98 02/09/21 08:47 02/09/21 08:47 02/09/21 08:47 02/09/21 08:47 02/09/21 08:47 General appearance: Present: no acute distress, well-nourished - EENT Eyes: Present: PERRL, EOM intact ENT: hearing intact, clear oral mucosa, dentition normal - Neck Neck: Present: supple, normal ROM - Respiratory Respiratory effort: normal Respiratory: bilateral: CTA - Cardiovascular Rhythm: regular Heart Sounds: Present: S1 & S2. Absent: gallop, rub - Extremities Extremities: no ischemia, No edema, Full ROM - Abdominal General gastrointestinal: soft, non-tender, non-distended, normal bowel sounds - Integumentary Integumentary: Present: clear, warm, dry - Neurologic Neurologic: CNII-XII intact, moves all extremities Results - Labs CBC & Chem 7: 01/22/21 04:47 01/22/21 04:47 Labs: Laboratory Last Values WBC 5.9 K/mm3 (4.5-11.0) 01/22/21 04:47 RBC 5.10 M/mm3 (3.65-5.03) H 01/22/21 04:47 Hgb 11.3 gm/dl (11.8-15.2) L 01/22/21 04:47 Hct 36.5 % (35.5-45.6) 01/22/21 04:47 MCV 72 fl (84-94) L 01/22/21 04:47 MCH 22 pg (28-32) L 01/22/21 04:47 MCHC 31 % (32-34) L 01/22/21 04:47 RDW 15.5 % (13.2-15.2) H 01/22/21 04:47 Plt Count 270 K/mm3 (140-440) 01/22/21 04:47 Lymph % (Auto) 6.4 % (13.4-35.0) L 12/27/20 17:34 [place] % (Auto) 3.9 % (0.0-7.3) 12/27/20 17:34 Eos % (Auto) 0.2 % (0.0-4.3) 12/27/20 17:34 Baso % (Auto) Re Dye Hand 01/14/21 07:27 Lymph # (Auto) 0.7 K/mm3 (1.2-5.4) L 12/27/20 17:34 [place] # (Auto) 0.4 K/mm3 (0.0-0.8) 12/27/20 17:34 Eos # (Auto) 0.0 K/mm3 (0.0-0.4) 12/27/20 17:34 Baso # (Auto) 0.1 K/mm3 (0.0-0.1) 12/27/20 17:34 Add Manual Diff Complete 01/14/21 07:27 Total Counted 100 01/14/21 07:27 Seg Neutrophils % 89.0 % (40.0-70.0) H 12/27/20 17:34 Seg Neuts % (Manual) 76.0 % (40.0-70.0) H 01/14/21 07:27 Band Neutrophils % 1.0 % 01/14/21 07:27 Lymphocytes % (Manual) 8.0 % (13.4-35.0) L 01/14/21 07:27 Reactive Lymphs % (Man) 1.0 % 01/14/21 07:27 Monocytes % (Manual) 4.0 % (0.0-7.3) 01/14/21 07:27 Eosinophils % (Manual) 1.0 % (0.0-4.3) 01/14/21 07:27 Myelocytes % 9.0 % 01/14/21 07:27 Nucleated RBC % Not Reportable 01/14/21 07:27 Seg Neutrophils # 9.5 K/mm3 (1.8-7.7) H 12/27/20 17:34 Seg Neutrophils # Man 4.5 K/mm3 (1.8-7.7) 01/14/21 07:27 Band Neutrophils # 0.1 K/mm3 01/14/21 07:27 Lymphocytes # (Manual) 0.5 K/mm3 (1.2-5.4) L 01/14/21 07:27 Abs React Lymphs (Man) 0.1 K/mm3 01/14/21 07:27 Monocytes # (Manual) 0.2 K/mm3 (0.0-0.8) 01/14/21 07:27 Eosinophils # (Manual) 0.1 K/mm3 (0.0-0.4) 01/14/21 07:27 Basophils # (Manual) 0.0 K/mm3 (0.0-0.1) 01/14/21 07:27 Metamyelocytes # 0.0 K/mm3 01/14/21 07:27 Myelocytes # 0.5 K/mm3 01/14/21 07:27 Promyelocytes # 0.0 K/mm3 01/14/21 07:27 Blast Cells # 0.0 K/mm3 01/14/21 07:27 WBC Morphology Not Reportable 01/14/21 07:27 Hypersegmented Neuts Not Reportable 01/14/21 07:27 Hyposegmented Neuts Not Reportable 01/14/21 07:27 Hypogranular Neuts Not Reportable 01/14/21 07:27 Smudge Cells Not Reportable 01/14/21 07:27 Toxic Granulation Not Reportable 01/14/21 07:27 Toxic Vacuolation Not Reportable 01/14/21 07:27 Dohle Bodies Not Reportable 01/14/21 07:27 Pelger-Huet Anomaly Not Reportable 01/14/21 07:27 Diana Rods Not Reportable 01/14/21 07:27 Platelet Estimate Consistent w auto 01/14/21 07:27 Clumped Platelets Not Reportable 01/14/21 07:27 Plt Clumps, EDTA Not Reportable 01/14/21 07:27 Large Platelets Not Reportable 01/14/21 07:27 Giant Platelets Not Reportable 01/14/21 07:27 Platelet Satelliting Not Reportable 01/14/21 07:27 Plt Morphology Comment Not Reportable 01/14/21 07:27 RBC Morphology Not Reportable 01/14/21 07:27 Dimorphic RBCs Not Reportable 01/14/21 07:27 Polychromasia Not Reportable 01/14/21 07:27 Hypochromasia Not Reportable 01/14/21 07:27 Poikilocytosis Not Reportable 01/14/21 07:27 Anisocytosis Not Reportable 01/14/21 07:27 Microcytosis Not Reportable 01/14/21 07:27 Macrocytosis Not Reportable 01/14/21 07:27 Spherocytes Not Reportable 01/14/21 07:27 Pappenheimer Bodies Not Reportable 01/14/21 07:27 Sickle Cells Not Reportable 01/14/21 07:27 Target Cells Not Reportable 01/14/21 07:27 Tear Drop Cells Not Reportable 01/14/21 07:27 Ovalocytes Not Reportable 01/14/21 07:27 Helmet Cells Not Reportable 01/14/21 07:27 [place] Bodies Not Reportable 01/14/21 07:27 S[place]abe Rings Not Reportable 01/14/21 07:27 [place] Cells Not Reportable 01/14/21 07:27 Bite Cells Not Reportable 01/14/21 07:27 Crenated Cell Not Reportable 01/14/21 07:27 Elliptocytes Not Reportable 01/14/21 07:27 Acanthocytes (Spur) Not Reportable 01/14/21 07:27 Rouleaux Not Reportable 01/14/21 07:27 Hemoglobin C Crystals Not Reportable 01/14/21 07:27 Schistocytes Not Reportable 01/14/21 07:27 Malaria parasites Not Reportable 01/14/21 07:27 [place]athon Bodies Not Reportable 01/14/21 07:27 Hem Pathologist Commnt No 01/14/21 07:27 Sodium 140 mmol/L (137-145) 01/22/21 04:47 Potassium 3.8 mmol/L (3.6-5.0) 01/22/21 04:47 Chloride 101.3 mmol/L (98-107) 01/22/21 04:47 Carbon Dioxide 28 mmol/L (22-30) 01/22/21 04:47 Anion Gap 15 mmol/L 01/22/21 04:47 BUN 16 mg/dL (9-20) 01/22/21 04:47 Creatinine 0.8 mg/dL (0.8-1.3) 01/22/21 04:47 Estimated GFR > 60 ml/min 01/22/21 04:47 BUN/Creatinine Ratio 20 % 01/22/21 04:47 Glucose 103 mg/dL (75-100) H 01/22/21 04:47 POC Glucose 112 mg/dL (70-105) H 12/29/20 00:14 Lactic Acid 1.30 mmol/L (0.7-2.0) 12/28/20 08:13 Calcium 9.0 mg/dL (8.4-10.2) 01/22/21 04:47 Phosphorus 3.70 mg/dL (2.5-4.5) 12/30/20 13:13 Magnesium 2.10 mg/dL (1.7-2.3) 12/30/20 13:13 Total Bilirubin 0.50 mg/dL (0.1-1.2) 12/31/20 05:02 Direct Bilirubin < 0.2 mg/dL (0-0.2) 12/27/20 17:34 Indirect Bilirubin 0.2 mg/dL 12/27/20 17:34 AST 19 units/L (5-40) 12/31/20 05:02 ALT 12 units/L (7-56) 12/31/20 05:02 Alkaline Phosphatase 72 units/L (35-129) 12/31/20 05:02 Ammonia 21.0 umol/L (25-60) L 12/30/20 13:13 Total Protein 7.1 g/dL (6.3-8.2) 12/31/20 05:02 Albumin 3.7 g/dL (3.9-5) L 12/31/20 05:02 Albumin/Globulin Ratio 1.1 % 12/31/20 05:02 Urine Color Straw (Yellow) 12/28/20 02:15 Urine Turbidity Clear (Clear) 12/28/20 02:15 Urine pH 5.0 (5.0-7.0) 12/28/20 02:15 Ur Specific [place] 1.025 (1.003-1.030) 12/28/20 02:15 Urine Protein 100 mg/dl mg/dL (Negative) 12/28/20 02:15 Urine Glucose (UA) Negative mg/dL (Negative) 12/28/20 02:15 Urine Ketones Negative mg/dL (Negative) 12/28/20 02:15 Urine Blood Small (Negative) A 12/28/20 02:15 Urine Nitrite Negative (Negative) 12/28/20 02:15 Ur Reducing Substances Not Reportable 12/28/20 02:15 Urine Bilirubin Negative (Negative) 12/28/20 02:15 Urine Ictotest Not Reportable 12/28/20 02:15 Urine Urobilinogen < 2.0 mg/dL (<2.0) 12/28/20 02:15 Ur Leukocyte Esterase Negative (Negative) 12/28/20 02:15 Urine WBC (Auto) 3.0 /HPF (0.0-6.0) 12/28/20 02:15 Urine RBC (Auto) 4.0 /HPF (0.0-6.0) 12/28/20 02:15 U Epithel Cells (Auto) < 1.0 /HPF (0-13.0) 12/28/20 02:15 Hyaline Casts 1 /LPF 12/28/20 02:15 Granular Casts 1 /LPF 12/28/20 02:15 Urine Mucus Few /HPF 12/28/20 02:15 Salicylates < 0.3 mg/dL (2.8-20.0) L 12/27/20 17:34 Urine Opiates Screen Negative 12/27/20 17:11 Urine Methadone Screen Negative 12/27/20 17:11 Acetaminophen 5.0 ug/mL (10.0-30.0) L 12/27/20 17:34 Ur Barbiturates Screen Negative 12/27/20 17:11 Ur Phencyclidine Scrn Negative 12/27/20 17:11 Ur Amphetamines Screen Negative 12/27/20 17:11 U Benzodiazepines Scrn Negative 12/27/20 17:11 Urine Cocaine Screen Negative 12/27/20 17:11 U Marijuana (THC) Screen Negative 12/27/20 17:11 Drugs of Abuse Note Disclamer 12/27/20 17:11 Plasma/Serum Alcohol < 0.01 % (0-0.07) 12/27/20 17:34 [place]/IV: Voiding Method Toilet Active Medications - Current Medications Current Medications: Generic Name Dose Route Start Last Admin Trade Name Freq PRN Reason Stop Dose Admin Amlodipine Besylate 2.5 mg 12/29/20 10:00 02/09/21 09:59 Amlodipine 5 Mg Tab PO 2.5 mg QDAY CHELLE Administration Aspirin 81 mg 12/29/20 10:00 02/09/21 09:59 Aspirin 81 Mg Tab Chew PO 81 mg QDAY CHELLE Administration Atorvastatin Calcium 40 mg 12/29/20 22:00 02/08/21 21:16 Atorvastatin 40 Mg Tab PO 40 mg QHS CHELLE Administration Cyanocobalamin 1,000 mcg 12/31/20 15:00 02/09/21 09:59 Cyanocobalamin (Vit B-12) 1000 Mcg Tab PO 1,000 mcg QDAY CHELLE Administration Enoxaparin Sodium 40 mg 12/28/20 10:00 02/09/21 10:00 Enoxaparin 40 Mg/0.4 Ml Inj SUB-Q 40 mg QDAY CHELLE Administration Folic Acid 1 mg 01/03/21 10:00 02/09/21 10:00 Folic Acid 1 Mg Tab PO 1 mg DAILY CHELLE Administration Hydrochlorothiazide 25 mg 12/29/20 10:00 02/09/21 09:59 Hydrochlorothiazide 25 Mg Tab PO 25 mg QDAY CEHLLE Administration Levetiracetam 500 mg 01/02/21 10:00 02/09/21 09:59 Levetiracetam 500 Mg Tab PO 500 mg BID CHELLE Administration Lorazepam 2 mg 12/30/20 11:00 12/30/20 22:21 Lorazepam 2 Mg/Ml Vial IV 2 mg Q1HR PRN Administration CIWA-Ar 8-15 Lorazepam 4 mg 12/30/20 11:00 Lorazepam 2 Mg/Ml Vial IV Q1HR PRN CIWA-Ar 16-25 Multivitamins/Minerals 1 each 01/03/21 10:00 02/09/21 09:59 Multivitamins,Ther W-Minerals Tab PO 1 each QDAY CHELLE Administration Risperidone 1 mg 12/31/20 22:00 02/09/21 09:59 Risperidone 1 Mg Tab PO 1 mg BID CHELLE Administration Sodium Chloride 10 ml 12/28/20 10:00 02/09/21 10:00 Sodium Chloride 0.9% 10 Ml Flush Syringe IV Not Given BID CHELLE Thiamine HCl 100 mg 01/03/21 10:00 02/09/21 10:00 Thiamine 100 Mg Tab PO 100 mg QDAY CHELLE Administration Nutrition/Malnutrition Assess - Dietary Evaluation Nutrition/Malnutrition Findings: Nutrition Notes Start: 01/03/21 16:36 Freq: Status: Active Protocol: Document 01/31/21 16:24 RADHA (Rec: 01/31/21 16:41 RADHA [id number]) Nutrition Notes Initial or Follow up Reassessment Current Diagnosis Hypertension Other Pertinent Diagnosis Acute metabolic encephalopathy , EtOH withdrawal, schizophrenia Current Diet Regular Diet (since L 12/29). Labs/Tests 01/22: Last labs available: Nutritionally unremarkable. Pertinent Medications 01/31: Vitamin B12, Folic Acid , multivitamins/minerals, Vit B1, others nutritionally unremarkable. Height 6 ft Weight 91.2 kg [place] Body Weight (kg) 80.90 BMI 27.2 Weight change and time frame No new weights in past week since last assessment Weight Status Overweight Subjective/Other Information 01/31 consult for F/U. Pt awaiting placement. note 01/16: pt cleared for discharge Burn Absent Trauma Absent GI Symptoms None Food Allergy No Skin Integrity/Comment no complications reported Current % PO Good (75-100%) Minimum of two criteria No #1 Nutrition Diagnosis No nutrition diagnosis at this time Comments: Pt PO intake has been consistently Good at 100%. Pt awiting for placement. Is patient on ventilator? No Is Patient Ambulatory and/or Out of Bed No REE-([facility]-confined to bed) 2116.668 Kcal/Kg value to use for calculation 20 Approximate Energy Requirements Using 1824 kcal/Kg Calculation Used for Recommendations William Gordon Additional Notes Protein: 0.8-1 g/kg; 65-81 g/ Kg (from IBW). Fluids: 1 ml/kcal, or as per MD. Nutrition Intervention Change Diet Order: Continue Regular Diet. Goal #1 Maintain body weight within +/ -3% of current BWt during LOS. Goal #2 Reach and maintain acceptable chemistry lab values during LOS. Follow-Up By: 02/14/21 Additional Comments Continue to monitor food tolerance, %PO intake of meals , Hydration, and BM.
--- NOTE | 2021-02-10 09:02 | Progress Note ---
Assessment and Plan Assessment and plan: --Acute metabolic Encephalopathy (resolving) CT of the head and urine drug test-negative MRI of brain ordered unable to do due to lack of consent intiall. improved Chest x-ray negative for acute finding Consulted neurologist Patient appears to be at baseline --Febrile illness; in the setting of an encephalopathy on admission ID evaluated the patient, treated with empiric antibiotics, requested LP/MRI, no family available, to give consent And patient is agitated and confused requiring restraints --Hyponatremia/resolved hyponaremia mild-likely 2/2 dehydration continue IV hydration -- Hypertension Continue current antihypertensives. Monitor blood pressure PRN Hydralazine -- Possible Seizure disorder Seizure precautions, antiepileptic medications, neurology consult --?ETOH abuse thiamine, folic acid Closely monitor for alcohol withdrawal symptoms. --History of schizophrenia Continue psych medications psych consulted Closely monitor --DVT prophylaxis Subcutaneous Lovenox Daily Hospital course: 12/28: Patient now with fever of unknown origin. Still confused discussed with ID will obtain lumbar puncture. 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 MRI is pending. 12/29: Still with low grade fever, continue abx, follow cultures, LP to be done on thursday due to no Radiologist, Neurology input noted. Swallow eval ok, continue diet. start on HCTZ and Norvasc for HTN. No history on patient available here yet.] Want CT of the head read as negative during neurologist did review any suspect an acute ischemic stroke starting the patient on aspirin 81 mg daily unfortunately this was not started yesterday not sure why but will start that today. EEG is also ordered for possible subclinical seizures. He refused an ABG. Continue restraints as 12/30: Patient still with confusion, I wonder if he has some etoh issues, will go ahead and start on CIWA protocol in addition to Banana bag. CONTINUE restraints. 12/31: I was able to obtain records from [facility] as patient was recently admitted there on December 20 he was discharged on vitamin B12 1000 mcg daily, ferrous sulfate 325 mg twice a day and Keppra 1000 mg every 12 hours in addition to rest. Do not 1 tablet 2 times a day of 2 mg each. He does have underlying schizophrenia prior history of cocaine abuse and also history of seizure disorde r and severe neurocognitive disorder. His court appointed [employer] agent is Grace Padilla phone #[phone]. At the time of his discharge from [place] he was supposed to be placed in a personal jail as he has a history of wandering. I am not sure if this was done. As he was brought to us "found in the [place]". Clinically he is showing some improvement but with the new information will obtain psych consultation. 01/01; could not do the MRI/LP due to his severe agitation And noncooperation, will try MRI study again tomorrow with Ativan 01/02; radiology cannot do lumbar puncture/MRI study due to patient's severe agitation requiring four-point restraints And no family/contact representative available to consent for the above tests when patient is calm and stable 01/03; patient continues to be agitated requiring restraints, noncooperative and unsteady for lumbar punctures and MRI Patient has no family to give consent, case management informed 01/04; patient is more calm, however gets agitated, CM informed me that patient's Michelle Padilla court appointed guardian, will call me To discuss and give consent for the tests and procedures ,waiting for patient's guardian call 01/05; still waiting for patient's guardian Indra Padilla to call and give consent for MRI/LP 01/06: Did not get a call from the patient's guardian Indra Padilla [Case management stated that patient's guardian will call me ] 01/07; patient's guardian Michelle Padilla did not contact me , CM could not reach her. No consent for LP/MRI Possible placement to [facility]. Discharge planning per case management 01/08: Patient remains restrained, continue to follow clinically. manager heavy equipment working on placement 01/09: pillowcase cutter working on SNF placement, follow clinically, patient remains confused and requiring restraints. Continue empiric antibiotics per ID recommendation. 01/10: Last day of antibiotic today, pending SNF placement 01/11: Completed empiric antibiotics, pending SNF placement, patient remains confused. We will monitor off restrain, continue supportive care 01/12: Pending SNF placement, continue to monitor off restrain, provide supportive care 01/13: continue to monitor off restrain, provide supportive care. pending SNF placement 01/14: pending SNF placement, continue to monitor off restrain, provide supportive care 01/22: Patient clinically stable, pending placement. 01/23: follow clinically, d/c when placement available 01/24: Patient denies any acute issue, resting on bed. Pending placement 01/25: no distress, pending placement. 01/26: Patient clinically stable, pending placement. 01/27; 01/25: no distress, pending placement. 01/28: Patient clinically stable, pending placement. cont supportive care 01/29/2021: Patient is calm, no behavioral issues reported. Vital signs stable. Awaiting placement. 01/30/2021: Patient is calm, no behavioral issues reported. Vital signs stable. Awaiting placement. 01/31/2021: Patient is psychotic but calm, no behavioral issues reported. Vital signs stable. Awaiting placement. 02/01/2021: Patient is calm. No behavioral issues reported. All vital signs are stable. Discussed with case management regarding placement. manager heavy equipment is assured me that she is calling every day and following up with [facility] in [place] 02/02/21: Awaiting placement 02/03: awaiting placement. 02/04: awaiting placement. discussed in CM rounds this AM. SW/CM working to finalize placement. 02/05: Awaiting placement and will follow up with case management with regards to disposition 02/06: No new issues. Patient awaiting placement 02/07: No new issues. Patient awaiting placement 02/08: No new issues. Patient awaiting placement 02/09: No new issues. Patient awaiting placement 02/10: No new issues. Patient awaiting placement History Interval history: No new issues overnight. Hospitalist Physical - Constitutional Vitals: Temp Pulse Resp BP Pulse Ox 98.4 F 72 18 141/68 99 02/10/21 04:37 02/10/21 04:37 02/10/21 04:37 02/10/21 04:37 02/10/21 04:37 General appearance: Present: no acute distress, well-nourished - EENT Eyes: Present: PERRL, EOM intact ENT: hearing intact, clear oral mucosa, dentition normal - Neck Neck: Present: supple, normal ROM - Respiratory Respiratory effort: normal Respiratory: bilateral: CTA - Cardiovascular Rhythm: regular Heart Sounds: Present: S1 & S2. Absent: gallop, rub - Extremities Extremities: no ischemia, No edema, Full ROM - Abdominal General gastrointestinal: soft, non-tender, non-distended, normal bowel sounds - Integumentary Integumentary: Present: clear, warm, dry - Neurologic Neurologic: CNII-XII intact, moves all extremities Results - Labs CBC & Chem 7: 01/22/21 04:47 01/22/21 04:47 Labs: Laboratory Last Values WBC 5.9 K/mm3 (4.5-11.0) 01/22/21 04:47 RBC 5.10 M/mm3 (3.65-5.03) H 01/22/21 04:47 Hgb 11.3 gm/dl (11.8-15.2) L 01/22/21 04:47 Hct 36.5 % (35.5-45.6) 01/22/21 04:47 MCV 72 fl (84-94) L 01/22/21 04:47 MCH 22 pg (28-32) L 01/22/21 04:47 MCHC 31 % (32-34) L 01/22/21 04:47 RDW 15.5 % (13.2-15.2) H 01/22/21 04:47 Plt Count 270 K/mm3 (140-440) 01/22/21 04:47 Lymph % (Auto) 6.4 % (13.4-35.0) L 12/27/20 17:34 Will % (Auto) 3.9 % (0.0-7.3) 12/27/20 17:34 Eos % (Auto) 0.2 % (0.0-4.3) 12/27/20 17:34 Baso % (Auto) Supervisor [employer] Hand 01/14/21 07:27 Lymph # (Auto) 0.7 K/mm3 (1.2-5.4) L 12/27/20 17:34 Will # (Auto) 0.4 K/mm3 (0.0-0.8) 12/27/20 17:34 Eos # (Auto) 0.0 K/mm3 (0.0-0.4) 12/27/20 17:34 Baso # (Auto) 0.1 K/mm3 (0.0-0.1) 12/27/20 17:34 Add Manual Diff Complete 01/14/21 07:27 Total Counted 100 01/14/21 07:27 Seg Neutrophils % 89.0 % (40.0-70.0) H 12/27/20 17:34 Seg Neuts % (Manual) 76.0 % (40.0-70.0) H 01/14/21 07:27 Band Neutrophils % 1.0 % 01/14/21 07:27 Lymphocytes % (Manual) 8.0 % (13.4-35.0) L 01/14/21 07:27 Reactive Lymphs % (Man) 1.0 % 01/14/21 07:27 Monocytes % (Manual) 4.0 % (0.0-7.3) 01/14/21 07:27 Eosinophils % (Manual) 1.0 % (0.0-4.3) 01/14/21 07:27 Myelocytes % 9.0 % 01/14/21 07:27 Nucleated RBC % Not Reportable 01/14/21 07:27 Seg Neutrophils # 9.5 K/mm3 (1.8-7.7) H 12/27/20 17:34 Seg Neutrophils # Man 4.5 K/mm3 (1.8-7.7) 01/14/21 07:27 Band Neutrophils # 0.1 K/mm3 01/14/21 07:27 Lymphocytes # (Manual) 0.5 K/mm3 (1.2-5.4) L 01/14/21 07:27 Abs React Lymphs (Man) 0.1 K/mm3 01/14/21 07:27 Monocytes # (Manual) 0.2 K/mm3 (0.0-0.8) 01/14/21 07:27 Eosinophils # (Manual) 0.1 K/mm3 (0.0-0.4) 01/14/21 07:27 Basophils # (Manual) 0.0 K/mm3 (0.0-0.1) 01/14/21 07:27 Metamyelocytes # 0.0 K/mm3 01/14/21 07:27 Myelocytes # 0.5 K/mm3 01/14/21 07:27 Promyelocytes # 0.0 K/mm3 01/14/21 07:27 Blast Cells # 0.0 K/mm3 01/14/21 07:27 WBC Morphology Not Reportable 01/14/21 07:27 Hypersegmented Neuts Not Reportable 01/14/21 07:27 Hyposegmented Neuts Not Reportable 10/18/21 07:27 Hypogranular Neuts Not Reportable 01/14/21 07:27 Smudge Cells Not Reportable 01/14/21 07:27 Toxic Granulation Not Reportable 01/14/21 07:27 Toxic Vacuolation Not Reportable 01/14/21 07:27 Dohle Bodies Not Reportable 01/14/21 07:27 Pelger-Huet Anomaly Not Reportable 01/14/21 07:27 Diana Rods Not Reportable 01/14/21 07:27 Platelet Estimate Consistent w auto 01/14/21 07:27 Clumped Platelets Not Reportable 01/14/21 07:27 Plt Clumps, EDTA Not Reportable 01/14/21 07:27 Large Platelets Not Reportable 01/14/21 07:27 Giant Platelets Not Reportable 01/14/21 07:27 Platelet Satelliting Not Reportable 01/14/21 07:27 Plt Morphology Comment Not Reportable 01/14/21 07:27 RBC Morphology Not Reportable 01/14/21 07:27 Dimorphic RBCs Not Reportable 01/14/21 07:27 Polychromasia Not Reportable 01/14/21 07:27 Hypochromasia Not Reportable 01/14/21 07:27 Poikilocytosis Not Reportable 01/14/21 07:27 Anisocytosis Not Reportable 01/14/21 07:27 Microcytosis Not Reportable 01/14/21 07:27 Macrocytosis Not Reportable 01/14/21 07:27 Spherocytes Not Reportable 01/14/21 07:27 Pappenheimer Bodies Not Reportable 01/14/21 07:27 Sickle Cells Not Reportable 01/14/21 07:27 Target Cells Not Reportable 01/14/21 07:27 Tear Drop Cells Not Reportable 01/14/21 07:27 Ovalocytes Not Reportable 01/14/21 07:27 Helmet Cells Not Reportable 01/14/21 07:27 Solano-Manati Bodies Not Reportable 01/14/21 07:27 [place] Rings Not Reportable 01/14/21 07:27 Joaquin Cells Not Reportable 01/14/21 07:27 Bite Cells Not Reportable 01/14/21 07:27 Crenated Cell Not Reportable 01/14/21 07:27 Elliptocytes Not Reportable 01/14/21 07:27 Acanthocytes (Spur) Not Reportable 01/14/21 07:27 Rouleaux Not Reportable 01/14/21 07:27 Hemoglobin C Crystals Not Reportable 01/14/21 07:27 Schistocytes Not Reportable 01/14/21 07:27 Malaria parasites Not Reportable 01/14/21 07:27 Johnathon Bodies Not Reportable 01/14/21 07:27 Hem Pathologist Commnt No 01/14/21 07:27 Sodium 140 mmol/L (137-145) 01/22/21 04:47 Potassium 3.8 mmol/L (3.6-5.0) 01/22/21 04:47 Chloride 101.3 mmol/L (98-107) 01/22/21 04:47 Carbon Dioxide 28 mmol/L (22-30) 01/22/21 04:47 Anion Gap 15 mmol/L 01/22/21 04:47 BUN 16 mg/dL (9-20) 01/22/21 04:47 Creatinine 0.8 mg/dL (0.8-1.3) 01/22/21 04:47 Estimated GFR > 60 ml/min 01/22/21 04:47 BUN/Creatinine Ratio 20 % 01/22/21 04:47 Glucose 103 mg/dL (75-100) H 01/22/21 04:47 POC Glucose 112 mg/dL (70-105) H 12/29/20 00:14 Lactic Acid 1.30 mmol/L (0.7-2.0) 12/28/20 08:13 Calcium 9.0 mg/dL (8.4-10.2) 01/22/21 04:47 Phosphorus 3.70 mg/dL (2.5-4.5) 12/30/20 13:13 Magnesium 2.10 mg/dL (1.7-2.3) 12/30/20 13:13 Total Bilirubin 0.50 mg/dL (0.1-1.2) 12/31/20 05:02 Direct Bilirubin < 0.2 mg/dL (0-0.2) 12/27/20 17:34 Indirect Bilirubin 0.2 mg/dL 12/27/20 17:34 AST 19 units/L (5-40) 12/31/20 05:02 ALT 12 units/L (7-56) 12/31/20 05:02 Alkaline Phosphatase 72 units/L (35-129) 12/31/20 05:02 Ammonia 21.0 umol/L (25-60) L 12/30/20 13:13 Total Protein 7.1 g/dL (6.3-8.2) 12/31/20 05:02 Albumin 3.7 g/dL (3.9-5) L 12/31/20 05:02 Albumin/Globulin Ratio 1.1 % 12/31/20 05:02 Urine Color Straw (Yellow) 12/28/20 02:15 Urine Turbidity Clear (Clear) 12/28/20 02:15 Urine pH 5.0 (5.0-7.0) 12/28/20 02:15 Ur Specific [place] 1.025 (1.003-1.030) 12/28/20 02:15 Urine Protein 100 mg/dl mg/dL (Negative) 12/28/20 02:15 Urine Glucose (UA) Negative mg/dL (Negative) 12/28/20 02:15 Urine Ketones Negative mg/dL (Negative) 12/28/20 02:15 Urine Blood Small (Negative) A 12/28/20 02:15 Urine Nitrite Negative (Negative) 12/28/20 02:15 Ur Reducing Substances Not Reportable 12/28/20 02:15 Urine Bilirubin Negative (Negative) 12/28/20 02:15 Urine Ictotest Not Reportable 12/28/20 02:15 Urine Urobilinogen < 2.0 mg/dL (<2.0) 12/28/20 02:15 Ur Leukocyte Esterase Negative (Negative) 12/28/20 02:15 Urine WBC (Auto) 3.0 /HPF (0.0-6.0) 12/28/20 02:15 Urine RBC (Auto) 4.0 /HPF (0.0-6.0) 12/28/20 02:15 U Epithel Cells (Auto) < 1.0 /HPF (0-13.0) 12/28/20 02:15 Hyaline Casts 1 /LPF 12/28/20 02:15 Granular Casts 1 /LPF 12/28/20 02:15 Urine Mucus Few /HPF 12/28/20 02:15 Salicylates < 0.3 mg/dL (2.8-20.0) L 12/27/20 17:34 Urine Opiates Screen Negative 12/27/20 17:11 Urine Methadone Screen Negative 12/27/20 17:11 Acetaminophen 5.0 ug/mL (10.0-30.0) L 12/27/20 17:34 Ur Barbiturates Screen Negative 12/27/20 17:11 Ur Phencyclidine Scrn Negative 12/27/20 17:11 Ur Amphetamines Screen Negative 12/27/20 17:11 U Benzodiazepines Scrn Negative 12/27/20 17:11 Urine Cocaine Screen Negative 12/27/20 17:11 U Marijuana (THC) Screen Negative 12/27/20 17:11 Drugs of Abuse Note Disclamer 12/27/20 17:11 Plasma/Serum Alcohol < 0.01 % (0-0.07) 12/27/20 17:34 [place]/IV: Voiding Method Toilet Active Medications - Current Medications Current Medications: Generic Name Dose Route Start Last Admin Trade Name Freq PRN Reason Stop Dose Admin Amlodipine Besylate 2.5 mg 12/29/20 10:00 02/09/21 09:59 Amlodipine 5 Mg Tab PO 2.5 mg QDAY CHELLE Administration Aspirin 81 mg 12/29/20 10:00 02/09/21 09:59 Aspirin 81 Mg Tab Chew PO 81 mg QDAY CHELLE Administration Atorvastatin Calcium 40 mg 12/29/20 22:00 02/09/21 21:53 Atorvastatin 40 Mg Tab PO 40 mg QHS CHELLE Administration Cyanocobalamin 1,000 mcg 12/31/20 15:00 02/09/21 09:59 Cyanocobalamin (Vit B-12) 1000 Mcg Tab PO 1,000 mcg QDAY CHELLE Administration Enoxaparin Sodium 40 mg 12/28/20 10:00 02/09/21 10:00 Enoxaparin 40 Mg/0.4 Ml Inj SUB-Q 40 mg QDAY CHELLE Administration Folic Acid 1 mg 01/03/21 10:00 02/09/21 10:00 Folic Acid 1 Mg Tab PO 1 mg DAILY CHELLE Administration Hydrochlorothiazide 25 mg 12/29/20 10:00 02/09/21 09:59 Hydrochlorothiazide 25 Mg Tab PO 25 mg QDAY CHELLE Administration Levetiracetam 500 mg 01/02/21 10:00 02/09/21 21:53 Levetiracetam 500 Mg Tab PO 500 mg BID CHELLE Administration Lorazepam 2 mg 12/30/20 11:00 12/30/20 22:21 Lorazepam 2 Mg/Ml Vial IV 2 mg Q1HR PRN Administration CIWA-Ar 8-15 Lorazepam 4 mg 12/30/20 11:00 Lorazepam 2 Mg/Ml Vial IV Q1HR PRN CIWA-Ar 16-25 Multivitamins/Minerals 1 each 01/03/21 10:00 02/09/21 09:59 Multivitamins,Ther W-Minerals Tab PO 1 each QDAY CHELLE Administration Risperidone 1 mg 12/31/20 22:00 02/09/21 21:53 Risperidone 1 Mg Tab PO 1 mg BID CHELLE Administration Thiamine HCl 100 mg 01/03/21 10:00 02/09/21 10:00 Thiamine 100 Mg Tab PO 100 mg QDAY CHELLE Administration Nutrition/Malnutrition Assess - Dietary Evaluation Nutrition/Malnutrition Findings: Nutrition Notes Start: 01/03/21 16:36 Freq: Status: Active Protocol: Document 01/31/21 16:24 RDAHA (Rec: 01/31/21 16:41 RADHA [id number]) Nutrition Notes Initial or Follow up Reassessment Current Diagnosis Hypertension Other Pertinent Diagnosis Acute metabolic encephalopathy , EtOH withdrawal, schizophrenia Current Diet Regular Diet (since L 12/29). Labs/Tests 01/22: Last labs available: Nutritionally unremarkable. Pertinent Medications 01/31: Vitamin B12, Folic Acid , multivitamins/minerals, Vit B1, others nutritionally unremarkable. Height 6 ft Weight 91.2 kg [place] Body Weight (kg) 80.90 BMI 27.2 Weight change and time frame No new weights in past week since last assessment Weight Status Overweight Subjective/Other Information 01/31 consult for F/U. Pt awaiting placement. note 01/16: pt cleared for discharge Burn Absent Trauma Absent GI Symptoms None Food Allergy No Skin Integrity/Comment no complications reported Current % PO Good (75-100%) Minimum of two criteria No #1 Nutrition Diagnosis No nutrition diagnosis at this time Comments: Pt PO intake has been consistently Good at 100%. Pt awiting for placement. Is patient on ventilator? No Is Patient Ambulatory and/or Out of Bed No REE-([facility]-confined to bed) 2116.668 Kcal/Kg value to use for calculation 20 Approximate Energy Requirements Using 1824 kcal/Kg Calculation Used for Recommendations William Gordon Additional Notes Protein: 0.8-1 g/kg; 65-81 g/ Kg (from IBW). Fluids: 1 ml/kcal, or as per MD. Nutrition Intervention Change Diet Order: Continue Regular Diet. Goal #1 Maintain body weight within +/ -3% of current BWt during LOS. Goal #2 Reach and maintain acceptable chemistry lab values during LOS. Follow-Up By: 02/14/21 Additional Comments Continue to monitor food tolerance, %PO intake of meals , Hydration, and BM.
[2021-02-10] MEDS: CYANOCOBALAMIN (VIT B-12) 1000 MCG TAB PO SCH (10:08)
[2021-02-10] MEDS: FOLIC ACID 1 MG TAB PO SCH (10:08)
[2021-02-10] MEDS: ASPIRIN 81 MG TAB CHEW PO SCH (10:08)
[2021-02-10] MEDS: amLODIPine 5 MG TAB PO SCH (10:08)
[2021-02-10] MEDS: hydroCHLOROthiazide 25 MG TAB PO SCH (10:08)
[2021-02-10] MEDS: MULTIVITAMINS,THER W-MINERALS TAB PO SCH (10:08)
[2021-02-10] MEDS: ENOXAPARIN 40 MG/0.4 ML INJ SUB-Q SCH (10:08)
[2021-02-10] MEDS: risperiDONE 1 MG TAB PO SCH ×2 (10:08→22:22)
[2021-02-10] MEDS: levETIRAcetam 500 MG TAB PO SCH ×2 (10:08→22:22)
[2021-02-10] MEDS: THIAMINE 100 MG TAB PO SCH (10:09)
[2021-02-11 06:21] LABS: Basophils # (Auto) 0.1 K/mm3 (0.0-0.1); Basophils % (Auto) 0.9 % (0.0-1.8); Eosinophils # (Auto) 0.7 K/mm3 (0.0-0.4); Eosinophils % (Auto) 10.7 % (0.0-4.3); Hematocrit 34.5 % (35.5-45.6); Hemoglobin 10.9 gm/dl (11.8-15.2); Lymphocytes # (Auto) 1.9 K/mm3 (1.2-5.4); Lymphocytes % (Auto) 30.7 % (13.4-35.0); Mean Corpuscular HGB Conc 31 % (32-34); Mean Corpuscular Volume 71 fl (84-94); Monocytes # (Auto) 0.7 K/mm3 (0.0-0.8); Monocytes % (Auto) 11.2 % (0.0-7.3); Platelet Count 223 K/mm3 (140-440); Red Blood Count 4.86 M/mm3 (3.65-5.03); Red Cell Distribution Width 15.9 % (13.2-15.2)
[2021-02-11 06:41] LABS: Blood Urea Nitrogen 20 mg/dL (9-20); Calcium 9.1 mg/dL (8.4-10.2); Hemolysis Index 27
[2021-02-11 06:47] LABS: BUN/Creatinine Ratio 33
--- NOTE | 2021-02-11 08:38 | Progress Note ---
Assessment and Plan Assessment and plan: --Acute metabolic Encephalopathy (resolving) CT of the head and urine drug test-negative MRI of brain ordered unable to do due to lack of consent intiall. improved Chest x-ray negative for acute finding Consulted neurologist Patient appears to be at baseline --Hyponatremia/resolved hyponaremia mild-likely 2/2 dehydration continue IV hydration -- Hypertension Continue current antihypertensives. Monitor blood pressure PRN Hydralazine -- Possible Seizure disorder Seizure precautions, antiepileptic medications, neurology consult --?ETOH abuse thiamine, folic acid Closely monitor for alcohol withdrawal symptoms. --History of schizophrenia Continue psych medications psych consulted Closely monitor --DVT prophylaxis Subcutaneous Lovenox Daily Hospital course: 12/28: Patient now with fever of unknown origin. Still confused discussed with ID will obtain lumbar puncture. 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 MRI is pending. 12/29: Still with low grade fever, continue abx, follow cultures, LP to be done on thursday due to no Radiologist, Neurology input noted. Swallow eval ok, continue diet. start on HCTZ and Norvasc for HTN. No history on patient available here yet.] Want CT of the head read as negative during neurologist did review any suspect an acute ischemic stroke starting the patient on aspirin 81 mg daily unfortunately this was not started yesterday not sure why but will start that today. EEG is also ordered for possible subclinical seizures. He refused an ABG. Continue restraints as 12/30: Patient still with confusion, I wonder if he has some etoh issues, will go ahead and start on CIWA protocol in addition to Banana bag. CONTINUE restraints. 12/31: I was able to obtain records from [facility] as patient was recently admitted there on December 20 he was discharged on vitamin B12 1000 mcg daily, ferrous sulfate 325 mg twice a day and Keppra 1000 mg every 12 hours in addition to rest. Do not 1 tablet 2 times a day of 2 mg each. He does have underlying schizophrenia prior history of cocaine abuse and also history of seizure disorder and severe neurocognitive disorder. His court appointed [employer] agent is Grace Padilla phone #[phone]. At the time of his discharge from [place] he was supposed to be placed in a personal long-term as he has a history of wandering. I am not sure if this was done. As he was brought to us "found in the aguirre". Clinically he is showing some improvement but with the new information will obtain psych consultation. 01/01; could not do the MRI/LP due to his severe agitation And noncooperation, will try MRI study again tomorrow with Ativan 01/02; radiology cannot do lumbar puncture/MRI study due to patient's severe ag itation requiring four-point restraints And no family/contact printer dry film available to consent for the above tests when patient is calm and stable 01/03; patient continues to be agitated requiring restraints, noncooperative and unsteady for lumbar punctures and MRI Patient has no family to give consent, case management informed 01/04; patient is more calm, however gets agitated, CM informed me that patient's Michelle Padilla court appointed guardian, will call me To discuss and give consent for the tests and procedures ,waiting for patient's guardian call 01/05; still waiting for patient's guardian Indra Padilla to call and give consent for MRI/LP 01/06: Did not get a call from the patient's guardian Indra Padilla [Case management stated that patient's guardian will call me ] 01/07; patient's guardian Michelle Padilla did not contact me , CM could not reach her. No consent for LP/MRI Possible placement to [facility]. Discharge planning per case management 01/08: Patient remains restrained, continue to follow clinically. manager medical device working on placement 01/09: case technician working on SNF placement, follow clinically, patient remains confused and requiring restraints. Continue empiric antibiotics per ID recommendation. 01/10: Last day of antibiotic today, pending SNF placement 01/11: Completed empiric antibiotics, pending SNF placement, patient remains confused. We will monitor off restrain, continue supportive care 01/12: Pending SNF placement, continue to monitor off restrain, provide supportive care 01/13: continue to monitor off restrain, provide supportive care. pending SNF placement 01/14: pending SNF placement, continue to monitor off restrain, provide supportive care 01/22: Patient clinically stable, pending placement. 01/23: follow clinically, d/c when placement available 01/24: Patient denies any acute issue, resting on bed. Pending placement 01/25: no distress, pending placement. 01/26: Patient clinically stable, pending placement. 01/27; 01/25: no distress, pending placement. 01/28: Patient clinically stable, pending placement. cont supportive care 01/29/2021: Patient is calm, no behavioral issues reported. Vital signs stable. Awaiting placement. 01/30/2021: Patient is calm, no behavioral issues reported. Vital signs stable. Awaiting placement. 01/31/2021: Patient is psychotic but calm, no behavioral issues reported. Vital signs stable. Awaiting placement. 02/01/2021: Patient is calm. No behavioral issues reported. All vital signs are stable. Discussed with case management regarding placement. manager medical device is assured me that she is calling every day and following up with [facility] in [place] 02/02/21: Awaiting placement 02/03: awaiting placement. 02/04: awaiting placement. discussed in CM rounds this AM. SW/CM working to finalize placement. 02/05: Awaiting placement and will follow up with case management with regards to disposition 02/06: No new issues. Patient awaiting placement 02/07: No new issues. Patient awaiting placement 02/08: No new issues. Patient awaiting placement 02/09: No new issues. Patient awaiting placement 02/10: No new issues. Patient awaiting placement 02/10: No new issues. Patient awaiting placement History Interval history: No new issues overnight. Hospitalist Physical - Constitutional Vitals: Temp Pulse Resp BP Pulse Ox 98.4 F 68 18 111/68 98 02/11/21 05:25 02/11/21 05:25 02/11/21 00:01 02/11/21 05:25 02/11/21 07:53 General appearance: Present: no acute distress, well-nourished - EENT Eyes: Present: PERRL, EOM intact ENT: hearing intact, clear oral mucosa, dentition normal - Neck Neck: Present: supple, normal ROM - Respiratory Respiratory effort: normal Respiratory: bilateral: CTA - Cardiovascular Rhythm: regular Heart Sounds: Present: S1 & S2. Absent: gallop, rub - Extremities Extremities: no ischemia, No edema, Full ROM - Abdominal General gastrointestinal: soft, non-tender, non-distended, normal bowel sounds - Integumentary Integumentary: Present: clear, warm, dry - Neurologic Neurologic: CNII-XII intact, moves all extremities Results - Labs CBC & Chem 7: 02/11/21 05:56 02/11/21 05:56 Labs: Laboratory Last Values WBC 6.3 K/mm3 (4.5-11.0) 02/11/21 05:56 RBC 4.86 M/mm3 (3.65-5.03) 02/11/21 05:56 Hgb 10.9 gm/dl (11.8-15.2) L 02/11/21 05:56 Hct 34.5 % (35.5-45.6) L 02/11/21 05:56 MCV 71 fl (84-94) L 02/11/21 05:56 MCH 22 pg (28-32) L 02/11/21 05:56 MCHC 31 % (32-34) L 02/11/21 05:56 RDW 15.9 % (13.2-15.2) H 02/11/21 05:56 Plt Count 223 K/mm3 (140-440) 02/11/21 05:56 Lymph % (Auto) 30.7 % (13.4-35.0) 02/11/21 05:56 [place] % (Auto) 11.2 % (0.0-7.3) H 02/11/21 05:56 Eos % (Auto) 10.7 % (0.0-4.3) H 02/11/21 05:56 Baso % (Auto) 0.9 % (0.0-1.8) 02/11/21 05:56 Lymph # (Auto) 1.9 K/mm3 (1.2-5.4) 02/11/21 05:56 [place] # (Auto) 0.7 K/mm3 (0.0-0.8) 02/11/21 05:56 Eos # (Auto) 0.7 K/mm3 (0.0-0.4) H 02/11/21 05:56 Baso # (Auto) 0.1 K/mm3 (0.0-0.1) 02/11/21 05:56 Add Manual Diff Complete 01/14/21 07:27 Total Counted 100 01/14/21 07:27 Seg Neutrophils % 46.5 % (40.0-70.0) 02/11/21 05:56 Seg Neuts % (Manual) 76.0 % (40.0-70.0) H 01/14/21 07:27 Band Neutrophils % 1.0 % 01/14/21 07:27 Lymphocytes % (Manual) 8.0 % (13.4-35.0) L 01/14/21 07:27 Reactive Lymphs % (Man) 1.0 % 01/14/21 07:27 Monocytes % (Manual) 4.0 % (0.0-7.3) 01/14/21 07:27 Eosinophils % (Manual) 1.0 % (0.0-4.3) 01/14/21 07:27 Myelocytes % 9.0 % 01/14/21 07:27 Nucleated RBC % Not Reportable 01/14/21 07:27 Seg Neutrophils # 2.9 K/mm3 (1.8-7.7) 02/11/21 05:56 Seg Neutrophils # Man 4.5 K/mm3 (1.8-7.7) 01/14/21 07:27 Band Neutrophils # 0.1 K/mm3 01/14/21 07:27 Lymphocytes # (Manual) 0.5 K/mm3 (1.2-5.4) L 01/14/21 07:27 Abs React Lymphs (Man) 0.1 K/mm3 01/14/21 07:27 Monocytes # (Manual) 0.2 K/mm3 (0.0-0.8) 01/14/21 07:27 Eosinophils # (Manual) 0.1 K/mm3 (0.0-0.4) 01/14/21 07:27 Basophils # (Manual) 0.0 K/mm3 (0.0-0.1) 01/14/21 07:27 Metamyelocytes # 0.0 K/mm3 01/14/21 07:27 Myelocytes # 0.5 K/mm3 01/14/21 07:27 Promyelocytes # 0.0 K/mm3 01/14/21 07:27 Blast Cells # 0.0 K/mm3 01/14/21 07:27 WBC Morphology Not Reportable 01/14/21 07:27 Hypersegmented Neuts Not Reportable 01/14/21 07:27 Hyposegmented Neuts Not Reportable 01/14/21 07:27 Hypogranular Neuts Not Reportable 01/14/21 07:27 Smudge Cells Not Reportable 01/14/21 07:27 Toxic Granulation Not Reportable 01/14/21 07:27 Toxic Vacuolation Not Reportable 01/14/21 07:27 Dohle Bodies Not Reportable 01/14/21 07:27 Pelger-Huet Anomaly Not Reportable 01/14/21 07:27 Diana Rods Not Reportable 01/14/21 07:27 Platelet Estimate Consistent w auto 01/14/21 07:27 Clumped Platelets Not Reportable 01/14/21 07:27 Plt Clumps, EDTA Not Reportable 01/14/21 07:27 Large Platelets Not Reportable 01/14/21 07:27 Giant Platelets Not Reportable 01/14/21 07:27 Platelet Satelliting Not Reportable 01/14/21 07:27 Plt Morphology Comment Not Reportable 01/14/21 07:27 RBC Morphology Not Reportable 01/14/21 07:27 Dimorphic RBCs Not Reportable 01/14/21 07:27 Polychromasia Not Reportable 01/14/21 07:27 Hypochromasia Not Reportable 01/14/21 07:27 Poikilocytosis Not Reportable 01/14/21 07:27 Anisocytosis Not Reportable 01/14/21 07:27 Microcytosis Not Reportable 01/14/21 07:27 Macrocytosis Not Reportable 01/14/21 07:27 Spherocytes Not Reportable 01/14/21 07:27 Pappenheimer Bodies Not Reportable 01/14/21 07:27 Sickle Cells Not Reportable 01/14/21 07:27 Target Cells Not Reportable 01/14/21 07:27 Tear Drop Cells Not Reportable 01/14/21 07:27 Ovalocytes Not Reportable 01/14/21 07:27 Helmet Cells Not Reportable 01/14/21 07:27 [place] Bodies Not Reportable 01/14/21 07:27 Painter Rings Not Reportable 01/14/21 07:27 [place] Cells Not Reportable 01/14/21 07:27 Bite Cells Not Reportable 01/14/21 07:27 Crenated Cell Not Reportable 01/14/21 07:27 Elliptocytes Not Reportable 01/14/21 07:27 Acanthocytes (Spur) Not Reportable 01/14/21 07:27 Rouleaux Not Reportable 01/14/21 07:27 Hemoglobin C Crystals Not Reportable 01/14/21 07:27 Schistocytes Not Reportable 01/14/21 07:27 Malaria parasites Not Reportable 01/14/21 07:27 Johnathon Bodies Not Reportable 01/14/21 07:27 Hem Pathologist Commnt No 01/14/21 07:27 Sodium 140 mmol/L (137-145) 02/11/21 05:56 Potassium 4.3 mmol/L (3.6-5.0) 02/11/21 05:56 Chloride 103.2 mmol/L (98-107) 02/11/21 05:56 Carbon Dioxide 27 mmol/L (22-30) 02/11/21 05:56 Anion Gap 14 mmol/L 02/11/21 05:56 BUN 20 mg/dL (9-20) 02/11/21 05:56 Creatinine 0.6 mg/dL (0.8-1.3) L 02/11/21 05:56 Estimated GFR > 60 ml/min 02/11/21 05:56 BUN/Creatinine Ratio 33 % 02/11/21 05:56 Glucose 89 mg/dL (75-100) 02/11/21 05:56 POC Glucose 112 mg/dL (70-105) H 12/29/20 00:14 Lactic Acid 1.30 mmol/L (0.7-2.0) 12/28/20 08:13 Calcium 9.1 mg/dL (8.4-10.2) 02/11/21 05:56 Phosphorus 3.70 mg/dL (2.5-4.5) 12/30/20 13:13 Magnesium 2.10 mg/dL (1.7-2.3) 12/30/20 13:13 Total Bilirubin 0.50 mg/dL (0.1-1.2) 12/31/20 05:02 Direct Bilirubin < 0.2 mg/dL (0-0.2) 12/27/20 17:34 Indirect Bilirubin 0.2 mg/dL 12/27/20 17:34 AST 19 units/L (5-40) 12/31/20 05:02 ALT 12 units/L (7-56) 12/31/20 05:02 Alkaline Phosphatase 72 units/L (35-129) 12/31/20 05:02 Ammonia 21.0 umol/L (25-60) L 12/30/20 13:13 Total Protein 7.1 g/dL (6.3-8.2) 12/31/20 05:02 Albumin 3.7 g/dL (3.9-5) L 12/31/20 05:02 Albumin/Globulin Ratio 1.1 % 12/31/20 05:02 Urine Color Straw (Yellow) 12/28/20 02:15 Urine Turbidity Clear (Clear) 12/28/20 02:15 Urine pH 5.0 (5.0-7.0) 12/28/20 02:15 Ur Specific [place] 1.025 (1.003-1.030) 12/28/20 02:15 Urine Protein 100 mg/dl mg/dL (Negative) 12/28/20 02:15 Urine Glucose (UA) Negative mg/dL (Negative) 12/28/20 02:15 Urine Ketones Negative mg/dL (Negative) 12/28/20 02:15 Urine Blood Small (Negative) A 12/28/20 02:15 Urine Nitrite Negative (Negative) 12/28/20 02:15 Ur Reducing Substances Not Reportable 12/28/20 02:15 Urine Bilirubin Negative (Negative) 12/28/20 02:15 Urine Ictotest Not Reportable 12/28/20 02:15 Urine Urobilinogen < 2.0 mg/dL (<2.0) 12/28/20 02:15 Ur Leukocyte Esterase Negative (Negative) 12/28/20 02:15 Urine WBC (Auto) 3.0 /HPF (0.0-6.0) 12/28/20 02:15 Urine RBC (Auto) 4.0 /HPF (0.0-6.0) 12/28/20 02:15 U Epithel Cells (Auto) < 1.0 /HPF (0-13.0) 12/28/20 02:15 Hyaline Casts 1 /LPF 12/28/20 02:15 Granular Casts 1 /LPF 12/28/20 02:15 Urine Mucus Few /HPF 12/28/20 02:15 Salicylates < 0.3 mg/dL (2.8-20.0) L 12/27/20 17:34 Urine Opiates Screen Negative 12/27/20 17:11 Urine Methadone Screen Negative 12/27/20 17:11 Acetaminophen 5.0 ug/mL (10.0-30.0) L 12/27/20 17:34 Ur Barbiturates Screen Negative 12/27/20 17:11 Ur Phencyclidine Scrn Negative 12/27/20 17:11 Ur Amphetamines Screen Negative 12/27/20 17:11 U Benzodiazepines Scrn Negative 12/27/20 17:11 Urine Cocaine Screen Negative 12/27/20 17:11 U Marijuana (THC) Screen Negative 12/27/20 17:11 Drugs of Abuse Note Disclamer 12/27/20 17:11 Plasma/Serum Alcohol < 0.01 % (0-0.07) 12/27/20 17:34 [place]/IV: Voiding Method Toilet Active Medications - Current Medications Current Medications: Generic Name Dose Route Start Last Admin Trade Name Freq PRN Reason Stop Dose Admin Amlodipine Besylate 2.5 mg 12/29/20 10:00 02/10/21 10:08 Amlodipine 5 Mg Tab PO 2.5 mg QDAY CHELLE Administration Aspirin 81 mg 12/29/20 10:00 02/10/21 10:08 Aspirin 81 Mg Tab Chew PO 81 mg QDAY CHELLE Administration Atorvastatin Calcium 40 mg 12/29/20 22:00 02/10/21 22:22 Atorvastatin 40 Mg Tab PO 40 mg QHS CHELLE Administration Cyanocobalamin 1,000 mcg 12/31/20 15:00 02/10/21 10:08 Cyanocobalamin (Vit B-12) 1000 Mcg Tab PO 1,000 mcg QDAY CHELLE Administration Enoxaparin Sodium 40 mg 12/28/20 10:00 02/10/21 10:08 Enoxaparin 40 Mg/0.4 Ml Inj SUB-Q 40 mg QDAY CHELLE Administration Folic Acid 1 mg 01/03/21 10:00 02/10/21 10:08 Folic Acid 1 Mg Tab PO 1 mg DAILY CHELLE Administration Hydrochlorothiazide 25 mg 12/29/20 10:00 02/10/21 10:08 Hydrochlorothiazide 25 Mg Tab PO 25 mg QDAY CHELLE Administration Levetiracetam 500 mg 01/02/21 10:00 02/10/21 22:22 Levetiracetam 500 Mg Tab PO 500 mg BID CHELLE Administration Lorazepam 2 mg 12/30/20 11:00 12/30/20 22:21 Lorazepam 2 Mg/Ml Vial IV 2 mg Q1HR PRN Administration CIWA-Ar 8-15 Lorazepam 4 mg 12/30/20 11:00 Lorazepam 2 Mg/Ml Vial IV Q1HR PRN CIWA-Ar 16-25 Multivitamins/Minerals 1 each 01/03/21 10:00 02/10/21 10:08 Multivitamins,Ther W-Minerals Tab PO 1 each QDAY CHELLE Administration Risperidone 1 mg 12/31/20 22:00 02/10/21 22:22 Risperidone 1 Mg Tab PO 1 mg BID CHELLE Administration Thiamine HCl 100 mg 01/03/21 10:00 02/10/21 10:09 Thiamine 100 Mg Tab PO 100 mg QDAY CHELLE Administration Nutrition/Malnutrition Assess - Dietary Evaluation Nutrition/Malnutrition Findings: Nutrition Notes Start: 01/03/21 16:36 Freq: Status: Active Protocol: Document 01/31/21 16:24 RADHA (Rec: 01/31/21 16:41 RADHA [email or web address]) Nutrition Notes Initial or Follow up Reassessment Current Diagnosis Hypertension Other Pertinent Diagnosis Acute metabolic encephalopathy , EtOH withdrawal, schizophrenia Current Diet Regular Diet (since L 12/29). Labs/Tests 01/22: Last labs available: Nutritionally unremarkable. Pertinent Medications 01/31: Vitamin B12, Folic Acid , multivitamins/minerals, Vit B1, others nutritionally unremarkable. Height 6 ft Weight 91.2 kg [place] Body Weight (kg) 80.90 BMI 27.2 Weight change and time frame No new weights in past week since last assessment Weight Status Overweight Subjective/Other Information 01/31 consult for F/U. Pt awaiting placement. note 01/16: pt cleared for discharge Burn Absent Trauma Absent GI Symptoms None Food Allergy No Skin Integrity/Comment no complications reported Current % PO Good (75-100%) Minimum of two criteria No #1 Nutrition Diagnosis No nutrition diagnosis at this time Comments: Pt PO intake has been consistently Good at 100%. Pt awiting for placement. Is patient on ventilator? No Is Patient Ambulatory and/or Out of Bed No REE-([facility]-confined to bed) 2116.668 Kcal/Kg value to use for calculation 20 Approximate Energy Requirements Using 1824 kcal/Kg Calculation Used for Recommendations [facility] Additional Notes Protein: 0.8-1 g/kg; 65-81 g/ Kg (from IBW). Fluids: 1 ml/kcal, or as per MD. Nutrition Intervention Change Diet Order: Continue Regular Diet. Goal #1 Maintain body weight within +/ -3% of current BWt during LOS. Goal #2 Reach and maintain acceptable chemistry lab values during LOS. Follow-Up By: 02/14/21 Additional Comments Continue to monitor food tolerance, %PO intake of meals , Hydration, and BM.
[2021-02-11] MEDS: amLODIPine 5 MG TAB PO SCH (09:31)
[2021-02-11] MEDS: THIAMINE 100 MG TAB PO SCH (09:31)
[2021-02-11] MEDS: FOLIC ACID 1 MG TAB PO SCH (09:31)
[2021-02-11] MEDS: risperiDONE 1 MG TAB PO SCH ×2 (09:31→21:28)
[2021-02-11] MEDS: MULTIVITAMINS,THER W-MINERALS TAB PO SCH (09:31)
[2021-02-11] MEDS: levETIRAcetam 500 MG TAB PO SCH ×2 (09:31→21:28)
[2021-02-11] MEDS: ASPIRIN 81 MG TAB CHEW PO SCH (09:31)
[2021-02-11] MEDS: CYANOCOBALAMIN (VIT B-12) 1000 MCG TAB PO SCH (09:32)
[2021-02-11] MEDS: hydroCHLOROthiazide 25 MG TAB PO SCH (09:32)
[2021-02-11] MEDS: ENOXAPARIN 40 MG/0.4 ML INJ SUB-Q SCH (09:32)
--- NOTE | 2021-02-12 07:53 | Progress Note ---
Assessment and Plan Assessment and plan: --Acute metabolic Encephalopathy (resolving) CT of the head and urine drug test-negative MRI of brain ordered unable to do due to lack of consent intiall. improved Chest x-ray negative for acute finding Consulted neurologist Patient appears to be at baseline --Hyponatremia/resolved hyponaremia mild-likely 2/2 dehydration continue IV hydration -- Hypertension Continue current antihypertensives. Monitor blood pressure PRN Hydralazine -- Possible Seizure disorder Seizure precautions, antiepileptic medications, neurology consult --?ETOH abuse thiamine, folic acid Closely monitor for alcohol withdrawal symptoms. --History of schizophrenia Continue psych medications psych consulted Closely monitor --DVT prophylaxis Subcutaneous Lovenox Daily Hospital course: 12/28: Patient now with fever of unknown origin. Still confused discussed with ID will obtain lumbar puncture. 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 MRI is pending. 12/29: Still with low grade fever, continue abx, follow cultures, LP to be done on thursday due to no Radiologist, Neurology input noted. Swallow eval ok, continue diet. start on HCTZ and Norvasc for HTN. No history on patient available here yet.] Want CT of the head read as negative during neurologist did review any suspect an acute ischemic stroke starting the patient on aspirin 81 mg daily unfortunately this was not started yesterday not sure why but will start that today. EEG is also ordered for possible subclinical seizures. He refused an ABG. Continue restraints as 12/30: Patient still with confusion, I wonder if he has some etoh issues, will go ahead and start on CIWA protocol in addition to Banana bag. CONTINUE restraints. 12/31: I was able to obtain records from [facility] as patient was recently admitted there on December 20 he was discharged on vitamin B12 1000 mcg daily, ferrous sulfate 325 mg twice a day and Keppra 1000 mg every 12 hours in addition to rest. Do not 1 tablet 2 times a day of 2 mg each. He does have underlying schizophrenia prior history of cocaine abuse and also history of seizure disorder and severe neurocognitive disorder. His court appointed [employer] agent is Grace Padilla phone #[phone]. At the time of his discharge from [facility] [place] he was supposed to be placed in a personal prison as he has a history of wandering. I am not sure if this was done. As he was brought to us "found in the [place]ir[place]". Clinically he is showing some improvement but with the new information will obtain psych consultation. 01/01; could not do the MRI/LP due to his severe agitation And noncooperation, will try MRI study again tomorrow with Ativan 01/02; radiology cannot do lumbar puncture/MRI study due to patient's severe blaise tation requiring four-point restraints And no family/contact center representative available to consent for the above tests when patient is calm and stable 01/03; patient continues to be agitated requiring restraints, noncooperative and unsteady for lumbar punctures and MRI Patient has no family to give consent, case management informed 01/04; patient is more calm, however gets agitated, CM informed me that patient's Michelle Padilla court appointed guardian, will call me To discuss and give consent for the tests and procedures ,waiting for patient's guardian call 01/05; still waiting for patient's guardian Indra Padilla to call and give consent for MRI/LP 01/06: Did not get a call from the patient's guardian Indra Padilla [Case management stated that patient's guardian will call me ] 01/07; patient's guardian Michelle Padilla did not contact me , CM could not reach her. No consent for LP/MRI Possible placement to [facility]. Discharge planning per case management 01/08: Patient remains restrained, continue to follow clinically. new car sales manager working on placement 01/09: manager case management working on SNF placement, follow clinically, patient remains confused and requiring restraints. Continue empiric antibiotics per ID recommendation. 01/10: Last day of antibiotic today, pending SNF placement 01/11: Completed empiric antibiotics, pending SNF placement, patient remains confused. We will monitor off restrain, continue supportive care 01/12: Pending SNF placement, continue to monitor off restrain, provide supportive care 01/13: continue to monitor off restrain, provide supportive care. pending SNF placement 01/14: pending SNF placement, continue to monitor off restrain, provide supportive care 01/22: Patient clinically stable, pending placement. 01/23: follow clinically, d/c when placement available 01/24: Patient denies any acute issue, resting on bed. Pending placement 01/25: no distress, pending placement. 01/26: Patient clinically stable, pending placement. 01/27; 01/25: no distress, pending placement. 01/28: Patient clinically stable, pending placement. cont supportive care 01/29/2021: Patient is calm, no behavioral issues reported. Vital signs stable. Awaiting placement. 01/30/2021: Patient is calm, no behavioral issues reported. Vital signs stable. Awaiting placement. 01/31/2021: Patient is psychotic but calm, no behavioral issues reported. Vital signs stable. Awaiting placement. 02/01/2021: Patient is calm. No behavioral issues reported. All vital signs are stable. Discussed with case management regarding placement. new car sales manager is assured me that she is calling every day and following up with [facility] in [place] 02/02/21: Awaiting placement 02/03: awaiting placement. 02/04: awaiting placement. discussed in CM rounds this AM. SW/CM working to finalize placement. 02/05: Awaiting placement and will follow up with case management with regards to disposition 02/06: No new issues. Patient awaiting placement 02/07: No new issues. Patient awaiting placement 02/08: No new issues. Patient awaiting placement 02/09: No new issues. Patient awaiting placement 02/10: No new issues. Patient awaiting placement 02/10: No new issues. Patient awaiting placement 02/12: No new issues, Pending placement. History Interval history: No complaints. Hospitalist Physical - Physical exam Narrative exam: General appearance: Present: no acute distress, well-nourished - EENT Eyes: Present: PERRL, EOM intact ENT: hearing intact - Neck Neck: Present: supple - Respiratory Respiratory effort: normal Respiratory: bilateral: CTA - Cardiovascular Rhythm: regular - Extremities Extremities: No edema - Abdominal General gastrointestinal: soft, non-tender - Integumentary Integumentary: Absent: rash - Psychiatric Psychiatric: other (Psychotic) - Neurologic Neurologic: no focal deficits - Constitutional Vitals: Temp Pulse Resp BP Pulse Ox 98.4 F 68 18 111/68 98 02/11/21 05:25 02/11/21 05:25 02/11/21 00:01 02/11/21 05:25 02/11/21 22:00 General appearance: Present: no acute distress, well-nourished Results - Labs CBC & Chem 7: 02/11/21 05:56 02/11/21 05:56 Labs: Laboratory Last Values WBC 6.3 K/mm3 (4.5-11.0) 02/11/21 05:56 RBC 4.86 M/mm3 (3.65-5.03) 02/11/21 05:56 Hgb 10.9 gm/dl (11.8-15.2) L 02/11/21 05:56 Hct 34.5 % (35.5-45.6) L 02/11/21 05:56 MCV 71 fl (84-94) L 02/11/21 05:56 MCH 22 pg (28-32) L 02/11/21 05:56 MCHC 31 % (32-34) L 02/11/21 05:56 RDW 15.9 % (13.2-15.2) H 02/11/21 05:56 Plt Count 223 K/mm3 (140-440) 02/11/21 05:56 Lymph % (Auto) 30.7 % (13.4-35.0) 02/11/21 05:56 [place] % (Auto) 11.2 % (0.0-7.3) H 02/11/21 05:56 Eos % (Auto) 10.7 % (0.0-4.3) H 02/11/21 05:56 Baso % (Auto) 0.9 % (0.0-1.8) 02/11/21 05:56 Lymph # (Auto) 1.9 K/mm3 (1.2-5.4) 02/11/21 05:56 [place] # (Auto) 0.7 K/mm3 (0.0-0.8) 02/11/21 05:56 Eos # (Auto) 0.7 K/mm3 (0.0-0.4) H 02/11/21 05:56 Baso # (Auto) 0.1 K/mm3 (0.0-0.1) 02/11/21 05:56 Add Manual Diff Complete 01/14/21 07:27 Total Counted 100 01/14/21 07:27 Seg Neutrophils % 46.5 % (40.0-70.0) 02/11/21 05:56 Seg Neuts % (Manual) 76.0 % (40.0-70.0) H 01/14/21 07:27 Band Neutrophils % 1.0 % 01/14/21 07:27 Lymphocytes % (Manual) 8.0 % (13.4-35.0) L 01/14/21 07:27 Reactive Lymphs % (Man) 1.0 % 01/14/21 07:27 Monocytes % (Manual) 4.0 % (0.0-7.3) 01/14/21 07:27 Eosinophils % (Manual) 1.0 % (0.0-4.3) 01/14/21 07:27 Myelocytes % 9.0 % 01/14/21 07:27 Nucleated RBC % Not Reportable 01/14/21 07:27 Seg Neutrophils # 2.9 K/mm3 (1.8-7.7) 02/11/21 05:56 Seg Neutrophils # Man 4.5 K/mm3 (1.8-7.7) 01/14/21 07:27 Band Neutrophils # 0.1 K/mm3 01/14/21 07:27 Lymphocytes # (Manual) 0.5 K/mm3 (1.2-5.4) L 01/14/21 07:27 Abs React Lymphs (Man) 0.1 K/mm3 01/14/21 07:27 Monocytes # (Manual) 0.2 K/mm3 (0.0-0.8) 01/14/21 07:27 Eosinophils # (Manual) 0.1 K/mm3 (0.0-0.4) 01/14/21 07:27 Basophils # (Manual) 0.0 K/mm3 (0.0-0.1) 01/14/21 07:27 Metamyelocytes # 0.0 K/mm3 01/14/21 07:27 Myelocytes # 0.5 K/mm3 01/14/21 07:27 Promyelocytes # 0.0 K/mm3 01/14/21 07:27 Blast Cells # 0.0 K/mm3 01/14/21 07:27 WBC Morphology Not Reportable 01/14/21 07:27 Hypersegmented Neuts Not Reportable 01/14/21 07:27 Hyposegmented Neuts Not Reportable 01/14/21 07:27 Hypogranular Neuts Not Reportable 01/14/21 07:27 Smudge Cells Not Reportable 01/14/21 07:27 Toxic Granulation Not Reportable 01/14/21 07:27 Toxic Vacuolation Not Reportable 01/14/21 07:27 Dohle Bodies Not Reportable 01/14/21 07:27 Pelger-Huet Anomaly Not Reportable 01/14/21 07:27 Diana Rods Not Reportable 01/14/21 07:27 Platelet Estimate Consistent w auto 01/14/21 07:27 Clumped Platelets Not Reportable 01/14/21 07:27 Plt Clumps, EDTA Not Reportable 01/14/21 07:27 Large Platelets Not Reportable 01/14/21 07:27 Giant Platelets Not Reportable 01/14/21 07:27 Platelet Satelliting Not Reportable 01/14/21 07:27 Plt Morphology Comment Not Reportable 01/14/21 07:27 RBC Morphology Not Reportable 01/14/21 07:27 Dimorphic RBCs Not Reportable 01/14/21 07:27 Polychromasia Not Reportable 01/14/21 07:27 Hypochromasia Not Reportable 01/14/21 07:27 Poikilocytosis Not Reportable 01/14/21 07:27 Anisocytosis Not Reportable 01/14/21 07:27 Microcytosis Not Reportable 01/14/21 07:27 Macrocytosis Not Reportable 01/14/21 07:27 Spherocytes Not Reportable 01/14/21 07:27 Pappenheimer Bodies Not Reportable 01/14/21 07:27 Sickle Cells Not Reportable 01/14/21 07:27 Target Cells Not Reportable 01/14/21 07:27 Tear Drop Cells Not Reportable 01/14/21 07:27 Ovalocytes Not Reportable 01/14/21 07:27 Helmet Cells Not Reportable 01/14/21 07:27 Solano-Anna Bodies Not Reportable 01/14/21 07:27 Teague Rings Not Reportable 01/14/21 07:27 Aakash Cells Not Reportable 01/14/21 07:27 Bite Cells Not Reportable 01/14/21 07:27 Crenated Cell Not Reportable 01/14/21 07:27 Elliptocytes Not Reportable 01/14/21 07:27 Acanthocytes (Spur) Not Reportable 01/14/21 07:27 Rouleaux Not Reportable 01/14/21 07:27 Hemoglobin C Crystals Not Reportable 01/14/21 07:27 Schistocytes Not Reportable 01/14/21 07:27 Malaria parasites Not Reportable 01/14/21 07:27 Johnathon Bodies Not Reportable 01/14/21 07:27 Hem Pathologist Commnt No 01/14/21 07:27 Sodium 140 mmol/L (137-145) 02/11/21 05:56 Potassium 4.3 mmol/L (3.6-5.0) 02/11/21 05:56 Chloride 103.2 mmol/L (98-107) 02/11/21 05:56 Carbon Dioxide 27 mmol/L (22-30) 02/11/21 05:56 Anion Gap 14 mmol/L 02/11/21 05:56 BUN 20 mg/dL (9-20) 02/11/21 05:56 Creatinine 0.6 mg/dL (0.8-1.3) L 02/11/21 05:56 Estimated GFR > 60 ml/min 02/11/21 05:56 BUN/Creatinine Ratio 33 % 02/11/21 05:56 Glucose 89 mg/dL (75-100) 02/11/21 05:56 POC Glucose 112 mg/dL (70-105) H 12/29/20 00:14 Lactic Acid 1.30 mmol/L (0.7-2.0) 12/28/20 08:13 Calcium 9.1 mg/dL (8.4-10.2) 02/11/21 05:56 Phosphorus 3.70 mg/dL (2.5-4.5) 12/30/20 13:13 Magnesium 2.10 mg/dL (1.7-2.3) 12/30/20 13:13 Total Bilirubin 0.50 mg/dL (0.1-1.2) 12/31/20 05:02 Direct Bilirubin < 0.2 mg/dL (0-0.2) 12/27/20 17:34 Indirect Bilirubin 0.2 mg/dL 12/27/20 17:34 AST 19 units/L (5-40) 12/31/20 05:02 ALT 12 units/L (7-56) 12/31/20 05:02 Alkaline Phosphatase 72 units/L (35-129) 12/31/20 05:02 Ammonia 21.0 umol/L (25-60) L 12/30/20 13:13 Total Protein 7.1 g/dL (6.3-8.2) 12/31/20 05:02 Albumin 3.7 g/dL (3.9-5) L 12/31/20 05:02 Albumin/Globulin Ratio 1.1 % 12/31/20 05:02 Urine Color Straw (Yellow) 12/28/20 02:15 Urine Turbidity Clear (Clear) 12/28/20 02:15 Urine pH 5.0 (5.0-7.0) 12/28/20 02:15 Ur Specific [place] 1.025 (1.003-1.030) 12/28/20 02:15 Urine Protein 100 mg/dl mg/dL (Negative) 12/28/20 02:15 Urine Glucose (UA) Negative mg/dL (Negative) 12/28/20 02:15 Urine Ketones Negative mg/dL (Negative) 12/28/20 02:15 Urine Blood Small (Negative) A 12/28/20 02:15 Urine Nitrite Negative (Negative) 12/28/20 02:15 Ur Reducing Substances Not Reportable 12/28/20 02:15 Urine Bilirubin Negative (Negative) 12/28/20 02:15 Urine Ictotest Not Reportable 12/28/20 02:15 Urine Urobilinogen < 2.0 mg/dL (<2.0) 12/28/20 02:15 Ur Leukocyte Esterase Negative (Negative) 12/28/20 02:15 Urine WBC (Auto) 3.0 /HPF (0.0-6.0) 12/28/20 02:15 Urine RBC (Auto) 4.0 /HPF (0.0-6.0) 12/28/20 02:15 U Epithel Cells (Auto) < 1.0 /HPF (0-13.0) 12/28/20 02:15 Hyaline Casts 1 /LPF 12/28/20 02:15 Granular Casts 1 /LPF 12/28/20 02:15 Urine Mucus Few /HPF 12/28/20 02:15 Salicylates < 0.3 mg/dL (2.8-20.0) L 12/27/20 17:34 Urine Opiates Screen Negative 12/27/20 17:11 Urine Methadone Screen Negative 12/27/20 17:11 Acetaminophen 5.0 ug/mL (10.0-30.0) L 12/27/20 17:34 Ur Barbiturates Screen Negative 12/27/20 17:11 Ur Phencyclidine Scrn Negative 12/27/20 17:11 Ur Amphetamines Screen Negative 12/27/20 17:11 U Benzodiazepines Scrn Negative 12/27/20 17:11 Urine Cocaine Screen Negative 12/27/20 17:11 U Marijuana (THC) Screen Negative 12/27/20 17:11 Drugs of Abuse Note Disclamer 12/27/20 17:11 Plasma/Serum Alcohol < 0.01 % (0-0.07) 12/27/20 17:34 [place]/IV: Voiding Method Toilet Active Medications - Current Medications Current Medications: Generic Name Dose Route Start Last Admin Trade Name Freq PRN Reason Stop Dose Admin Amlodipine Besylate 2.5 mg 12/29/20 10:00 02/11/21 09:31 Amlodipine 5 Mg Tab PO 2.5 mg QDAY CHELLE Administration Aspirin 81 mg 12/29/20 10:00 02/11/21 09:31 Aspirin 81 Mg Tab Chew PO 81 mg QDAY CHELLE Administration Atorvastatin Calcium 40 mg 12/29/20 22:00 02/11/21 21:28 Atorvastatin 40 Mg Tab PO 40 mg QHS CHELLE Administration Cyanocobalamin 1,000 mcg 12/31/20 15:00 02/11/21 09:32 Cyanocobalamin (Vit B-12) 1000 Mcg Tab PO 1,000 mcg QDAY CHELLE Administration Enoxaparin Sodium 40 mg 12/28/20 10:00 02/11/21 09:32 Enoxaparin 40 Mg/0.4 Ml Inj SUB-Q 40 mg QDAY CHELLE Administration Folic Acid 1 mg 01/03/21 10:00 02/11/21 09:31 Folic Acid 1 Mg Tab PO 1 mg DAILY CHELLE Administration Hydrochlorothiazide 25 mg 12/29/20 10:00 02/11/21 09:32 Hydrochlorothiazide 25 Mg Tab PO 25 mg QDAY CHELLE Administration Levetiracetam 500 mg 01/02/21 10:00 02/11/21 21:28 Levetiracetam 500 Mg Tab PO 500 mg BID CHELLE Administration Lorazepam 2 mg 12/30/20 11:00 12/30/20 22:21 Lorazepam 2 Mg/Ml Vial IV 2 mg Q1HR PRN Administration CIWA-Ar 8-15 Lorazepam 4 mg 12/30/20 11:00 Lorazepam 2 Mg/Ml Vial IV Q1HR PRN CIWA-Ar 16-25 Multivitamins/Minerals 1 each 01/03/21 10:00 02/11/21 09:31 Multivitamins,Ther W-Minerals Tab PO 1 each QDAY CHELLE Administration Risperidone 1 mg 12/31/20 22:00 02/11/21 21:28 Risperidone 1 Mg Tab PO 1 mg BID CHELLE Administration Thiamine HCl 100 mg 01/03/21 10:00 02/11/21 09:31 Thiamine 100 Mg Tab PO 100 mg QDAY CHELLE Administration Nutrition/Malnutrition Assess - Dietary Evaluation Nutrition/Malnutrition Findings: Nutrition Notes Start: 01/03/21 16:36 Freq: Status: Active Protocol: Document 01/31/21 16:24 RADHA (Rec: 01/31/21 16:41 RADHA [id number]) Nutrition Notes Initial or Follow up Reassessment Current Diagnosis Hypertension Other Pertinent Diagnosis Acute metabolic encephalopathy , EtOH withdrawal, schizophrenia Current Diet Regular Diet (since L 12/29). Labs/Tests 01/22: Last labs available: Nutritionally unremarkable. Pertinent Medications 01/31: Vitamin B12, Folic Acid , multivitamins/minerals, Vit B1, others nutritionally unremarkable. Height 6 ft Weight 91.2 kg Belk Body Weight (kg) 80.90 BMI 27.2 Weight change and time frame No new weights in past week since last assessment Weight Status Overweight Subjective/Other Information 01/31 consult for F/U. Pt awaiting placement. note 01/16: pt cleared for discharge Burn Absent Trauma Absent GI Symptoms None Food Allergy No Skin Integrity/Comment no complications reported Current % PO Good (75-100%) Minimum of two criteria No #1 Nutrition Diagnosis No nutrition diagnosis at this time Comments: Pt PO intake has been consistently Good at 100%. Pt awiting for placement. Is patient on ventilator? No Is Patient Ambulatory and/or Out of Bed No REE-([facility]-confined to bed) 2116.668 Kcal/Kg value to use for calculation 20 Approximate Energy Requirements Using 1824 kcal/Kg Calculation Used for Recommendations [facility] Additional Notes Protein: 0.8-1 g/kg; 65-81 g/ Kg (from IBW). Fluids: 1 ml/kcal, or as per MD. Nutrition Intervention Change Diet Order: Continue Regular Diet. Goal #1 Maintain body weight within +/ -3% of current BWt during LOS. Goal #2 Reach and maintain acceptable chemistry lab values during LOS. Follow-Up By: 02/14/21 Additional Comments Continue to monitor food tolerance, %PO intake of meals , Hydration, and BM.
[2021-02-12] MEDS: ASPIRIN 81 MG TAB CHEW PO SCH (11:52)
[2021-02-12] MEDS: ENOXAPARIN 40 MG/0.4 ML INJ SUB-Q SCH (11:52)
[2021-02-12] MEDS: amLODIPine 5 MG TAB PO SCH (11:52)
[2021-02-12] MEDS: FOLIC ACID 1 MG TAB PO SCH (11:53)
[2021-02-12] MEDS: levETIRAcetam 500 MG TAB PO SCH ×2 (11:53→22:28)
[2021-02-12] MEDS: hydroCHLOROthiazide 25 MG TAB PO SCH (11:53)
[2021-02-12] MEDS: THIAMINE 100 MG TAB PO SCH (11:55)
[2021-02-12] MEDS: risperiDONE 1 MG TAB PO SCH ×2 (11:55→22:28)
[2021-02-12] MEDS: CYANOCOBALAMIN (VIT B-12) 1000 MCG TAB PO SCH (11:55)
[2021-02-12] MEDS: MULTIVITAMINS,THER W-MINERALS TAB PO SCH (11:55)
[2021-02-13] MEDS: ENOXAPARIN 40 MG/0.4 ML INJ SUB-Q SCH (10:15)
[2021-02-13] MEDS: levETIRAcetam 500 MG TAB PO SCH ×2 (10:16→23:16)
[2021-02-13] MEDS: FOLIC ACID 1 MG TAB PO SCH (10:16)
[2021-02-13] MEDS: ASPIRIN 81 MG TAB CHEW PO SCH (10:16)
[2021-02-13] MEDS: amLODIPine 5 MG TAB PO SCH (10:16)
[2021-02-13] MEDS: risperiDONE 1 MG TAB PO SCH ×2 (10:16→23:16)
[2021-02-13] MEDS: hydroCHLOROthiazide 25 MG TAB PO SCH (10:16)
[2021-02-13] MEDS: MULTIVITAMINS,THER W-MINERALS TAB PO SCH (10:16)
[2021-02-13] MEDS: THIAMINE 100 MG TAB PO SCH (10:16)
[2021-02-13] MEDS: CYANOCOBALAMIN (VIT B-12) 1000 MCG TAB PO SCH (10:16)
--- NOTE | 2021-02-13 13:23 | Progress Note ---
Assessment and Plan Assessment and plan: --Acute metabolic Encephalopathy (resolving) CT of the head and urine drug test-negative MRI of brain ordered unable to do due to lack of consent intiall. improved Chest x-ray negative for acute finding Consulted neurologist Patient appears to be at baseline --Hyponatremia/resolved hyponaremia mild-likely 2/2 dehydration continue IV hydration -- Hypertension Continue current antihypertensives. Monitor blood pressure PRN Hydralazine -- Possible Seizure disorder Seizure precautions, antiepileptic medications, neurology consult --?ETOH abuse thiamine, folic acid Closely monitor for alcohol withdrawal symptoms. --History of schizophrenia Continue psych medications psych consulted Closely monitor --DVT prophylaxis Subcutaneous Lovenox Daily Hospital course: 12/28: Patient now with fever of unknown origin. Still confused discussed with ID will obtain lumbar puncture. 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 MRI is pending. 12/29: Still with low grade fever, continue abx, follow cultures, LP to be done on thursday due to no Radiologist, Neurology input noted. Swallow eval ok, continue diet. start on HCTZ and Norvasc for HTN. No history on patient available here yet.] Want CT of the head read as negative during neurologist did review any suspect an acute ischemic stroke starting the patient on aspirin 81 mg daily unfortunately this was not started yesterday not sure why but will start that today. EEG is also ordered for possible subclinical seizures. He refused an ABG. Continue restraints as 12/30: Patient still with confusion, I wonder if he has some etoh issues, will go ahead and start on CIWA protocol in addition to Banana bag. CONTINUE restraints. 12/31: I was able to obtain records from [facility] as patient was recently admitted there on December 20 he was discharged on vitamin B12 1000 mcg daily, ferrous sulfate 325 mg twice a day and Keppra 1000 mg every 12 hours in addition to rest. Do not 1 tablet 2 times a day of 2 mg each. He does have underlying schizophrenia prior history of cocaine abuse and also history of seizure disorder and severe neurocognitive disorder. His court appointed [employer] agent is Grace Padilla phone #[phone]. At the time of his discharge from [place] he was supposed to be placed in a personal group home as he has a history of wandering. I am not sure if this was done. As he was brought to us "found in the [place]". Clinically he is showing some improvement but with the new information will obtain psych consultation. 01/01; could not do the MRI/LP due to his severe agitation And noncooperation, will try MRI study again tomorrow with Ativan 01/02; radiology cannot do lumbar puncture/MRI study due to patient's severe blaise tation requiring four-point restraints And no family/mining detail draftsperson available to consent for the above tests when patient is calm and stable 01/03; patient continues to be agitated requiring restraints, noncooperative and unsteady for lumbar punctures and MRI Patient has no family to give consent, case management informed 01/04; patient is more calm, however gets agitated, CM informed me that patient's Michelle Padilla court appointed guardian, will call me To discuss and give consent for the tests and procedures ,waiting for patient's guardian call 01/05; still waiting for patient's guardian Indra Padilla to call and give consent for MRI/LP 01/06: Did not get a call from the patient's guardian Indra Padilla [Case management stated that patient's guardian will call me ] 01/07; patient's guardian Michelle Padilla did not contact me , CM could not reach her. No consent for LP/MRI Possible placement to [facility]. Discharge planning per case management 01/08: Patient remains restrained, continue to follow clinically. fleet maintenance manager working on placement 01/09: bilingual patient support caseworker working on SNF placement, follow clinically, patient remains confused and requiring restraints. Continue empiric antibiotics per ID recommendation. 01/10: Last day of antibiotic today, pending SNF placement 01/11: Completed empiric antibiotics, pending SNF placement, patient remains confused. We will monitor off restrain, continue supportive care 01/12: Pending SNF placement, continue to monitor off restrain, provide supportive care 01/13: continue to monitor off restrain, provide supportive care. pending SNF placement 01/14: pending SNF placement, continue to monitor off restrain, provide supportive care 01/22: Patient clinically stable, pending placement. 01/23: follow clinically, d/c when placement available 01/24: Patient denies any acute issue, resting on bed. Pending placement 01/25: no distress, pending placement. 01/26: Patient clinically stable, pending placement. 01/27; 01/25: no distress, pending placement. 01/28: Patient clinically stable, pending placement. cont supportive care 01/29/2021: Patient is calm, no behavioral issues reported. Vital signs stable. Awaiting placement. 01/30/2021: Patient is calm, no behavioral issues reported. Vital signs stable. Awaiting placement. 01/31/2021: Patient is psychotic but calm, no behavioral issues reported. Vital signs stable. Awaiting placement. 02/01/2021: Patient is calm. No behavioral issues reported. All vital signs are stable. Discussed with case management regarding placement. fleet maintenance manager is assured me that she is calling every day and following up with [facility] in [place] 02/02/21: Awaiting placement 02/03: awaiting placement. 02/04: awaiting placement. discussed in CM rounds this AM. SW/CM working to finalize placement. 02/05: Awaiting placement and will follow up with case management with regards to disposition 02/06: No new issues. Patient awaiting placement 02/07: No new issues. Patient awaiting placement 02/08: No new issues. Patient awaiting placement 02/09: No new issues. Patient awaiting placement 02/10: No new issues. Patient awaiting placement 02/10: No new issues. Patient awaiting placement 02/12: No new issues, Pending placement. 02/13: No new issues, Pending placement. History Interval history: No acute complaints this AM. Hospitalist Physical - Physical exam Narrative exam: General appearance: Present: no acute distress, well-nourished - EENT Eyes: Present: PERRL, EOM intact ENT: hearing intact - Neck Neck: Present: supple - Respiratory Respiratory effort: normal Respiratory: bilateral: CTA - Cardiovascular Rhythm: regular - Extremities Extremities: No edema - Abdominal General gastrointestinal: soft, non-tender - Integumentary Integumentary: Absent: rash - Psychiatric Psychiatric: other (Psychotic) - Neurologic Neurologic: no focal deficits - Constitutional Vitals: Temp Pulse Resp BP Pulse Ox 98.5 F 85 18 102/60 100 02/13/21 08:30 02/13/21 08:30 02/13/21 08:30 02/13/21 08:30 02/13/21 08:30 General appearance: Present: no acute distress, well-nourished Results - Labs CBC & Chem 7: 02/11/21 05:56 02/11/21 05:56 Labs: Laboratory Last Values WBC 6.3 K/mm3 (4.5-11.0) 02/11/21 05:56 RBC 4.86 M/mm3 (3.65-5.03) 02/11/21 05:56 Hgb 10.9 gm/dl (11.8-15.2) L 02/11/21 05:56 Hct 34.5 % (35.5-45.6) L 02/11/21 05:56 MCV 71 fl (84-94) L 02/11/21 05:56 MCH 22 pg (28-32) L 02/11/21 05:56 MCHC 31 % (32-34) L 02/11/21 05:56 RDW 15.9 % (13.2-15.2) H 02/11/21 05:56 Plt Count 223 K/mm3 (140-440) 02/11/21 05:56 Lymph % (Auto) 30.7 % (13.4-35.0) 02/11/21 05:56 [place] % (Auto) 11.2 % (0.0-7.3) H 02/11/21 05:56 Eos % (Auto) 10.7 % (0.0-4.3) H 02/11/21 05:56 Baso % (Auto) 0.9 % (0.0-1.8) 02/11/21 05:56 Lymph # (Auto) 1.9 K/mm3 (1.2-5.4) 02/11/21 05:56 [place] # (Auto) 0.7 K/mm3 (0.0-0.8) 02/11/21 05:56 Eos # (Auto) 0.7 K/mm3 (0.0-0.4) H 02/11/21 05:56 Baso # (Auto) 0.1 K/mm3 (0.0-0.1) 02/11/21 05:56 Add Manual Diff Complete 01/14/21 07:27 Total Counted 100 01/14/21 07:27 Seg Neutrophils % 46.5 % (40.0-70.0) 02/11/21 05:56 Seg Neuts % (Manual) 76.0 % (40.0-70.0) H 01/14/21 07:27 Band Neutrophils % 1.0 % 01/14/21 07:27 Lymphocytes % (Manual) 8.0 % (13.4-35.0) L 01/14/21 07:27 Reactive Lymphs % (Man) 1.0 % 01/14/21 07:27 Monocytes % (Manual) 4.0 % (0.0-7.3) 01/14/21 07:27 Eosinophils % (Manual) 1.0 % (0.0-4.3) 01/14/21 07:27 Myelocytes % 9.0 % 01/14/21 07:27 Nucleated RBC % Not Reportable 01/14/21 07:27 Seg Neutrophils # 2.9 K/mm3 (1.8-7.7) 02/11/21 05:56 Seg Neutrophils # Man 4.5 K/mm3 (1.8-7.7) 01/14/21 07:27 Band Neutrophils # 0.1 K/mm3 01/14/21 07:27 Lymphocytes # (Manual) 0.5 K/mm3 (1.2-5.4) L 01/14/21 07:27 Abs React Lymphs (Man) 0.1 K/mm3 01/14/21 07:27 Monocytes # (Manual) 0.2 K/mm3 (0.0-0.8) 01/14/21 07:27 Eosinophils # (Manual) 0.1 K/mm3 (0.0-0.4) 01/14/21 07:27 Basophils # (Manual) 0.0 K/mm3 (0.0-0.1) 01/14/21 07:27 Metamyelocytes # 0.0 K/mm3 01/14/21 07:27 Myelocytes # 0.5 K/mm3 01/14/21 07:27 Promyelocytes # 0.0 K/mm3 01/14/21 07:27 Blast Cells # 0.0 K/mm3 01/14/21 07:27 WBC Morphology Not Reportable 01/14/21 07:27 Hypersegmented Neuts Not Reportable 01/14/21 07:27 Hyposegmented Neuts Not Reportable 01/14/21 07:27 Hypogranular Neuts Not Reportable 01/14/21 07:27 Smudge Cells Not Reportable 01/14/21 07:27 Toxic Granulation Not Reportable 01/14/21 07:27 Toxic Vacuolation Not Reportable 01/14/21 07:27 Dohle Bodies Not Reportable 01/14/21 07:27 Pelger-Huet Anomaly Not Reportable 01/14/21 07:27 Diana Rods Not Reportable 01/14/21 07:27 Platelet Estimate Consistent w auto 01/14/21 07:27 Clumped Platelets Not Reportable 01/14/21 07:27 Plt Clumps, EDTA Not Reportable 01/14/21 07:27 Large Platelets Not Reportable 01/14/21 07:27 Giant Platelets Not Reportable 01/14/21 07:27 Platelet Satelliting Not Reportable 01/14/21 07:27 Plt Morphology Comment Not Reportable 01/14/21 07:27 RBC Morphology Not Reportable 01/14/21 07:27 Dimorphic RBCs Not Reportable 01/14/21 07:27 Polychromasia Not Reportable 01/14/21 07:27 Hypochromasia Not Reportable 01/14/21 07:27 Poikilocytosis Not Reportable 01/14/21 07:27 Anisocytosis Not Reportable 01/14/21 07:27 Microcytosis Not Reportable 01/14/21 07:27 Macrocytosis Not Reportable 01/14/21 07:27 Spherocytes Not Reportable 01/14/21 07:27 Pappenheimer Bodies Not Reportable 01/14/21 07:27 Sickle Cells Not Reportable 01/14/21 07:27 Target Cells Not Reportable 01/14/21 07:27 Tear Drop Cells Not Reportable 01/14/21 07:27 Ovalocytes Not Reportable 01/14/21 07:27 Helmet Cells Not Reportable 01/14/21 07:27 [place] Bodies Not Reportable 01/14/21 07:27 [place] Rings Not Reportable 01/14/21 07:27 Aakash Cells Not Reportable 01/14/21 07:27 Bite Cells Not Reportable 01/14/21 07:27 Crenated Cell Not Reportable 01/14/21 07:27 Elliptocytes Not Reportable 01/14/21 07:27 Acanthocytes (Spur) Not Reportable 01/14/21 07:27 Rouleaux Not Reportable 01/14/21 07:27 Hemoglobin C Crystals Not Reportable 01/14/21 07:27 Schistocytes Not Reportable 01/14/21 07:27 Malaria parasites Not Reportable 01/14/21 07:27 Johnathon Bodies Not Reportable 01/14/21 07:27 Hem Pathologist Commnt No 01/14/21 07:27 Sodium 140 mmol/L (137-145) 02/11/21 05:56 Potassium 4.3 mmol/L (3.6-5.0) 02/11/21 05:56 Chloride 103.2 mmol/L (98-107) 02/11/21 05:56 Carbon Dioxide 27 mmol/L (22-30) 02/11/21 05:56 Anion Gap 14 mmol/L 02/11/21 05:56 BUN 20 mg/dL (9-20) 02/11/21 05:56 Creatinine 0.6 mg/dL (0.8-1.3) L 02/11/21 05:56 Estimated GFR > 60 ml/min 02/11/21 05:56 BUN/Creatinine Ratio 33 % 02/11/21 05:56 Glucose 89 mg/dL (75-100) 02/11/21 05:56 POC Glucose 112 mg/dL (70-105) H 12/29/20 00:14 Lactic Acid 1.30 mmol/L (0.7-2.0) 12/28/20 08:13 Calcium 9.1 mg/dL (8.4-10.2) 02/11/21 05:56 Phosphorus 3.70 mg/dL (2.5-4.5) 12/30/20 13:13 Magnesium 2.10 mg/dL (1.7-2.3) 12/30/20 13:13 Total Bilirubin 0.50 mg/dL (0.1-1.2) 12/31/20 05:02 Direct Bilirubin < 0.2 mg/dL (0-0.2) 12/27/20 17:34 Indirect Bilirubin 0.2 mg/dL 12/27/20 17:34 AST 19 units/L (5-40) 12/31/20 05:02 ALT 12 units/L (7-56) 12/31/20 05:02 Alkaline Phosphatase 72 units/L (35-129) 12/31/20 05:02 Ammonia 21.0 umol/L (25-60) L 12/30/20 13:13 Total Protein 7.1 g/dL (6.3-8.2) 12/31/20 05:02 Albumin 3.7 g/dL (3.9-5) L 12/31/20 05:02 Albumin/Globulin Ratio 1.1 % 12/31/20 05:02 Urine Color Straw (Yellow) 12/28/20 02:15 Urine Turbidity Clear (Clear) 12/28/20 02:15 Urine pH 5.0 (5.0-7.0) 12/28/20 02:15 Ur Specific [place] 1.025 (1.003-1.030) 12/28/20 02:15 Urine Protein 100 mg/dl mg/dL (Negative) 12/28/20 02:15 Urine Glucose (UA) Negative mg/dL (Negative) 12/28/20 02:15 Urine Ketones Negative mg/dL (Negative) 12/28/20 02:15 Urine Blood Small (Negative) A 12/28/20 02:15 Urine Nitrite Negative (Negative) 12/28/20 02:15 Ur Reducing Substances Not Reportable 12/28/20 02:15 Urine Bilirubin Negative (Negative) 12/28/20 02:15 Urine Ictotest Not Reportable 12/28/20 02:15 Urine Urobilinogen < 2.0 mg/dL (<2.0) 12/28/20 02:15 Ur Leukocyte Esterase Negative (Negative) 12/28/20 02:15 Urine WBC (Auto) 3.0 /HPF (0.0-6.0) 12/28/20 02:15 Urine RBC (Auto) 4.0 /HPF (0.0-6.0) 12/28/20 02:15 U Epithel Cells (Auto) < 1.0 /HPF (0-13.0) 12/28/20 02:15 Hyaline Casts 1 /LPF 12/28/20 02:15 Granular Casts 1 /LPF 12/28/20 02:15 Urine Mucus Few /HPF 12/28/20 02:15 Salicylates < 0.3 mg/dL (2.8-20.0) L 12/27/20 17:34 Urine Opiates Screen Negative 12/27/20 17:11 Urine Methadone Screen Negative 12/27/20 17:11 Acetaminophen 5.0 ug/mL (10.0-30.0) L 12/27/20 17:34 Ur Barbiturates Screen Negative 12/27/20 17:11 Ur Phencyclidine Scrn Negative 12/27/20 17:11 Ur Amphetamines Screen Negative 12/27/20 17:11 U Benzodiazepines Scrn Negative 12/27/20 17:11 Urine Cocaine Screen Negative 12/27/20 17:11 U Marijuana (THC) Screen Negative 12/27/20 17:11 Drugs of Abuse Note Disclamer 12/27/20 17:11 Plasma/Serum Alcohol < 0.01 % (0-0.07) 12/27/20 17:34 [place]/IV: Voiding Method Urinal Active Medications - Current Medications Current Medications: Generic Name Dose Route Start Last Admin Trade Name Freq PRN Reason Stop Dose Admin Amlodipine Besylate 2.5 mg 12/29/20 10:00 02/13/21 10:16 Amlodipine 5 Mg Tab PO 2.5 mg QDAY CHELLE Administration Aspirin 81 mg 12/29/20 10:00 02/13/21 10:16 Aspirin 81 Mg Tab Chew PO 81 mg QDAY CHELLE Administration Atorvastatin Calcium 40 mg 12/29/20 22:00 02/12/21 22:28 Atorvastatin 40 Mg Tab PO 40 mg QHS CHELLE Administration Cyanocobalamin 1,000 mcg 12/31/20 15:00 02/13/21 10:16 Cyanocobalamin (Vit B-12) 1000 Mcg Tab PO 1,000 mcg QDAY CHELLE Administration Enoxaparin Sodium 40 mg 12/28/20 10:00 02/13/21 10:15 Enoxaparin 40 Mg/0.4 Ml Inj SUB-Q 40 mg QDAY CHELLE Administration Folic Acid 1 mg 01/03/21 10:00 02/13/21 10:16 Folic Acid 1 Mg Tab PO 1 mg DAILY CHELLE Administration Hydrochlorothiazide 25 mg 12/29/20 10:00 02/13/21 10:16 Hydrochlorothiazide 25 Mg Tab PO 25 mg QDAY CHELLE Administration Levetiracetam 500 mg 01/02/21 10:00 02/13/21 10:16 Levetiracetam 500 Mg Tab PO 500 mg BID CHELLE Administration Lorazepam 2 mg 12/30/20 11:00 12/30/20 22:21 Lorazepam 2 Mg/Ml Vial IV 2 mg Q1HR PRN Administration CIWA-Ar 8-15 Lorazepam 4 mg 12/30/20 11:00 Lorazepam 2 Mg/Ml Vial IV Q1HR PRN CIWA-Ar 16-25 Multivitamins/Minerals 1 each 01/03/21 10:00 02/13/21 10:16 Multivitamins,Ther W-Minerals Tab PO 1 each QDAY CHELLE Administration Risperidone 1 mg 12/31/20 22:00 02/13/21 10:16 Risperidone 1 Mg Tab PO 1 mg BID CHELLE Administration Thiamine HCl 100 mg 01/03/21 10:00 02/13/21 10:16 Thiamine 100 Mg Tab PO 100 mg QDAY CHELLE Administration Nutrition/Malnutrition Assess - Dietary Evaluation Nutrition/Malnutrition Findings: Nutrition Notes Start: 01/03/21 16:36 Freq: Status: Active Protocol: Document 01/31/21 16:24 RADHA (Rec: 01/31/21 16:41 RADHA [id number]) Nutrition Notes Initial or Follow up Reassessment Current Diagnosis Hypertension Other Pertinent Diagnosis Acute metabolic encephalopathy , EtOH withdrawal, schizophrenia Current Diet Regular Diet (since L 12/29). Labs/Tests 01/22: Last labs available: Nutritionally unremarkable. Pertinent Medications 01/31: Vitamin B12, Folic Acid , multivitamins/minerals, Vit B1, others nutritionally unremarkable. Height 6 ft Weight 91.2 kg [place] Body Weight (kg) 80.90 BMI 27.2 Weight change and time frame No new weights in past week since last assessment Weight Status Overweight Subjective/Other Information 01/31 consult for F/U. Pt awaiting placement. note 01/16: pt cleared for discharge Burn Absent Trauma Absent GI Symptoms None Food Allergy No Skin Integrity/Comment no complications reported Current % PO Good (75-100%) Minimum of two criteria No #1 Nutrition Diagnosis No nutrition diagnosis at this time Comments: Pt PO intake has been consistently Good at 100%. Pt awiting for placement. Is patient on ventilator? No Is Patient Ambulatory and/or Out of Bed No REE-([facility]-confined to bed) 2116.668 Kcal/Kg value to use for calculation 20 Approximate Energy Requirements Using 1824 kcal/Kg Calculation Used for Recommendations [facility] Additional Notes Protein: 0.8-1 g/kg; 65-81 g/ Kg (from IBW). Fluids: 1 ml/kcal, or as per MD. Nutrition Intervention Change Diet Order: Continue Regular Diet. Goal #1 Maintain body weight within +/ -3% of current BWt during LOS. Goal #2 Reach and maintain acceptable chemistry lab values during LOS. Follow-Up By: 02/14/21 Additional Comments Continue to monitor food tolerance, %PO intake of meals , Hydration, and BM.
[2021-02-14] MEDS: risperiDONE 1 MG TAB PO SCH ×2 (10:22→21:05)
[2021-02-14] MEDS: FOLIC ACID 1 MG TAB PO SCH (10:22)
[2021-02-14] MEDS: ENOXAPARIN 40 MG/0.4 ML INJ SUB-Q SCH (10:22)
[2021-02-14] MEDS: THIAMINE 100 MG TAB PO SCH (10:22)
[2021-02-14] MEDS: CYANOCOBALAMIN (VIT B-12) 1000 MCG TAB PO SCH (10:22)
[2021-02-14] MEDS: ASPIRIN 81 MG TAB CHEW PO SCH (10:22)
[2021-02-14] MEDS: levETIRAcetam 500 MG TAB PO SCH ×2 (10:22→21:05)
[2021-02-14] MEDS: amLODIPine 5 MG TAB PO SCH (10:22)
[2021-02-14] MEDS: hydroCHLOROthiazide 25 MG TAB PO SCH (10:22)
[2021-02-14] MEDS: MULTIVITAMINS,THER W-MINERALS TAB PO SCH (10:22)
--- NOTE | 2021-02-14 11:21 | Progress Note ---
Assessment and Plan Assessment and plan: --Acute metabolic Encephalopathy (resolving) CT of the head and urine drug test-negative MRI of brain ordered unable to do due to lack of consent intiall. improved Chest x-ray negative for acute finding Consulted neurologist Patient appears to be at baseline --Hyponatremia/resolved hyponaremia mild-likely 2/2 dehydration continue IV hydration -- Hypertension Continue current antihypertensives. Monitor blood pressure PRN Hydralazine -- Possible Seizure disorder Seizure precautions, antiepileptic medications, neurology consult --?ETOH abuse thiamine, folic acid Closely monitor for alcohol withdrawal symptoms. --History of schizophrenia Continue psych medications psych consulted Closely monitor --DVT prophylaxis Subcutaneous Lovenox Daily Hospital course: 12/28: Patient now with fever of unknown origin. Still confused discussed with ID will obtain lumbar puncture. 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 MRI is pending. 12/29: Still with low grade fever, continue abx, follow cultures, LP to be done on thursday due to no Radiologist, Neurology input noted. Swallow eval ok, continue diet. start on HCTZ and Norvasc for HTN. No history on patient available here yet.] Want CT of the head read as negative during neurologist did review any suspect an acute ischemic stroke starting the patient on aspirin 81 mg daily unfortunately this was not started yesterday not sure why but will start that today. EEG is also ordered for possible subclinical seizures. He refused an ABG. Continue restraints as 12/30: Patient still with confusion, I wonder if he has some etoh issues, will go ahead and start on CIWA protocol in addition to Banana bag. CONTINUE restraints. 12/31: I was able to obtain records from [facility] as patient was recently admitted there on December 20 he was discharged on vitamin B12 1000 mcg daily, ferrous sulfate 325 mg twice a day and Keppra 1000 mg every 12 hours in addition to rest. Do not 1 tablet 2 times a day of 2 mg each. He does have underlying schizophrenia prior history of cocaine abuse and also history of seizure disorder and severe neurocognitive disorder. His court appointed [employer] agent is Grace Padilla phone #[phone]. At the time of his discharge from [place] he was supposed to be placed in a personal senior care as he has a history of wandering. I am not sure if this was done. As he was brought to us "found in the ag[place]irre". Clinically he is showing some improvement but with the new information will obtain psych consultation. 01/01; could not do the MRI/LP due to his severe agitation And noncooperation, will try MRI study again tomorrow with Ativan 01/02; radiology cannot do lumbar puncture/MRI study due to patient's severe blaise tation requiring four-point restraints And no family/customer contact sales associate available to consent for the above tests when patient is calm and stable 01/03; patient continues to be agitated requiring restraints, noncooperative and unsteady for lumbar punctures and MRI Patient has no family to give consent, case management informed 01/04; patient is more calm, however gets agitated, CM informed me that patient's Michelle Padilla court appointed guardian, will call me To discuss and give consent for the tests and procedures ,waiting for patient's guardian call 01/05; still waiting for patient's guardian Indra Padilla to call and give consent for MRI/LP 01/06: Did not get a call from the patient's guardian Indra Padilla [Case management stated that patient's guardian will call me ] 01/07; patient's guardian Michelle Padilla did not contact me , CM could not reach her. No consent for LP/MRI Possible placement to [facility]. Discharge planning per case management 01/08: Patient remains restrained, continue to follow clinically. computer security manager working on placement 01/09: telephonic case manager working on SNF placement, follow clinically, patient remains confused and requiring restraints. Continue empiric antibiotics per ID recommendation. 01/10: Last day of antibiotic today, pending SNF placement 01/11: Completed empiric antibiotics, pending SNF placement, patient remains confused. We will monitor off restrain, continue supportive care 01/12: Pending SNF placement, continue to monitor off restrain, provide supportive care 01/13: continue to monitor off restrain, provide supportive care. pending SNF placement 01/14: pending SNF placement, continue to monitor off restrain, provide supportive care 01/22: Patient clinically stable, pending placement. 01/23: follow clinically, d/c when placement available 01/24: Patient denies any acute issue, resting on bed. Pending placement 01/25: no distress, pending placement. 01/26: Patient clinically stable, pending placement. 01/27; 01/25: no distress, pending placement. 01/28: Patient clinically stable, pending placement. cont supportive care 01/29/2021: Patient is calm, no behavioral issues reported. Vital signs stable. Awaiting placement. 01/30/2021: Patient is calm, no behavioral issues reported. Vital signs stable. Awaiting placement. 01/31/2021: Patient is psychotic but calm, no behavioral issues reported. Vital signs stable. Awaiting placement. 02/01/2021: Patient is calm. No behavioral issues reported. All vital signs are stable. Discussed with case management regarding placement. computer security manager is assured me that she is calling every day and following up with [facility] in [place] 02/02/21: Awaiting placement 02/03: awaiting placement. 02/04: awaiting placement. discussed in CM rounds this AM. SW/CM working to finalize placement. 02/05: Awaiting placement and will follow up with case management with regards to disposition 02/06: No new issues. Patient awaiting placement 02/07: No new issues. Patient awaiting placement 02/08: No new issues. Patient awaiting placement 02/09: No new issues. Patient awaiting placement 02/10: No new issues. Patient awaiting placement 02/10: No new issues. Patient awaiting placement 02/12: No new issues, Pending placement. 02/13: No new issues, Pending placement. 02/14: No new issues, Pending placement. History Interval history: No acute complaints this AM. Hospitalist Physical - Physical exam Narrative exam: General appearance: Present: no acute distress, well-nourished - EENT Eyes: Present: PERRL, EOM intact ENT: hearing intact - Neck Neck: Present: supple - Respiratory Respiratory effort: normal Respiratory: bilateral: CTA - Cardiovascular Rhythm: regular - Extremities Extremities: No edema - Abdominal General gastrointestinal: soft, non-tender - Integumentary Integumentary: Absent: rash - Psychiatric Psychiatric: other (Psychotic) - Neurologic Neurologic: no focal deficits - Constitutional Vitals: Temp Pulse Resp BP Pulse Ox 97.7 F 62 20 104/54 95 02/14/21 07:41 02/14/21 07:41 02/14/21 07:41 02/14/21 07:41 02/14/21 07:41 General appearance: Present: no acute distress, well-nourished Results - Labs CBC & Chem 7: 02/11/21 05:56 02/11/21 05:56 Labs: Laboratory Last Values WBC 6.3 K/mm3 (4.5-11.0) 02/11/21 05:56 RBC 4.86 M/mm3 (3.65-5.03) 02/11/21 05:56 Hgb 10.9 gm/dl (11.8-15.2) L 02/11/21 05:56 Hct 34.5 % (35.5-45.6) L 02/11/21 05:56 MCV 71 fl (84-94) L 02/11/21 05:56 MCH 22 pg (28-32) L 02/11/21 05:56 MCHC 31 % (32-34) L 02/11/21 05:56 RDW 15.9 % (13.2-15.2) H 02/11/21 05:56 Plt Count 223 K/mm3 (140-440) 02/11/21 05:56 Lymph % (Auto) 30.7 % (13.4-35.0) 02/11/21 05:56 Potter % (Auto) 11.2 % (0.0-7.3) H 02/11/21 05:56 Eos % (Auto) 10.7 % (0.0-4.3) H 02/11/21 05:56 Baso % (Auto) 0.9 % (0.0-1.8) 02/11/21 05:56 Lymph # (Auto) 1.9 K/mm3 (1.2-5.4) 02/11/21 05:56 Potter # (Auto) 0.7 K/mm3 (0.0-0.8) 02/11/21 05:56 Eos # (Auto) 0.7 K/mm3 (0.0-0.4) H 02/11/21 05:56 Baso # (Auto) 0.1 K/mm3 (0.0-0.1) 02/11/21 05:56 Add Manual Diff Complete 01/14/21 07:27 Total Counted 100 01/14/21 07:27 Seg Neutrophils % 46.5 % (40.0-70.0) 02/11/21 05:56 Seg Neuts % (Manual) 76.0 % (40.0-70.0) H 01/14/21 07:27 Band Neutrophils % 1.0 % 01/14/21 07:27 Lymphocytes % (Manual) 8.0 % (13.4-35.0) L 01/14/21 07:27 Reactive Lymphs % (Man) 1.0 % 01/14/21 07:27 Monocytes % (Manual) 4.0 % (0.0-7.3) 01/14/21 07:27 Eosinophils % (Manual) 1.0 % (0.0-4.3) 01/14/21 07:27 Myelocytes % 9.0 % 01/14/21 07:27 Nucleated RBC % Not Reportable 01/14/21 07:27 Seg Neutrophils # 2.9 K/mm3 (1.8-7.7) 02/11/21 05:56 Seg Neutrophils # Man 4.5 K/mm3 (1.8-7.7) 01/14/21 07:27 Band Neutrophils # 0.1 K/mm3 01/14/21 07:27 Lymphocytes # (Manual) 0.5 K/mm3 (1.2-5.4) L 01/14/21 07:27 Abs React Lymphs (Man) 0.1 K/mm3 01/14/21 07:27 Monocytes # (Manual) 0.2 K/mm3 (0.0-0.8) 01/14/21 07:27 Eosinophils # (Manual) 0.1 K/mm3 (0.0-0.4) 01/14/21 07:27 Basophils # (Manual) 0.0 K/mm3 (0.0-0.1) 01/14/21 07:27 Metamyelocytes # 0.0 K/mm3 01/14/21 07:27 Myelocytes # 0.5 K/mm3 01/14/21 07:27 Promyelocytes # 0.0 K/mm3 01/14/21 07:27 Blast Cells # 0.0 K/mm3 01/14/21 07:27 WBC Morphology Not Reportable 01/14/21 07:27 Hypersegmented Neuts Not Reportable 01/14/21 07:27 Hyposegmented Neuts Not Reportable 01/14/21 07:27 Hypogranular Neuts Not Reportable 01/14/21 07:27 Smudge Cells Not Reportable 01/14/21 07:27 Toxic Granulation Not Reportable 01/14/21 07:27 Toxic Vacuolation Not Reportable 01/14/21 07:27 Dohle Bodies Not Reportable 01/14/21 07:27 Pelger-Huet Anomaly Not Reportable 01/14/21 07:27 Diana Rods Not Reportable 01/14/21 07:27 Platelet Estimate Consistent w auto 01/14/21 07:27 Clumped Platelets Not Reportable 01/14/21 07:27 Plt Clumps, EDTA Not Reportable 01/14/21 07:27 Large Platelets Not Reportable 01/14/21 07:27 Giant Platelets Not Reportable 01/14/21 07:27 Platelet Satelliting Not Reportable 01/14/21 07:27 Plt Morphology Comment Not Reportable 01/14/21 07:27 RBC Morphology Not Reportable 01/14/21 07:27 Dimorphic RBCs Not Reportable 01/14/21 07:27 Polychromasia Not Reportable 01/14/21 07:27 Hypochromasia Not Reportable 01/14/21 07:27 Poikilocytosis Not Reportable 01/14/21 07:27 Anisocytosis Not Reportable 01/14/21 07:27 Microcytosis Not Reportable 01/14/21 07:27 Macrocytosis Not Reportable 01/14/21 07:27 Spherocytes Not Reportable 01/14/21 07:27 Pappenheimer Bodies Not Reportable 01/14/21 07:27 Sickle Cells Not Reportable 01/14/21 07:27 Target Cells Not Reportable 01/14/21 07:27 Tear Drop Cells Not Reportable 01/14/21 07:27 Ovalocytes Not Reportable 01/14/21 07:27 Helmet Cells Not Reportable 01/14/21 07:27 [place] Bodies Not Reportable 01/14/21 07:27 [place] Rings Not Reportable 01/14/21 07:27 Aakash Cells Not Reportable 01/14/21 07:27 Bite Cells Not Reportable 01/14/21 07:27 Crenated Cell Not Reportable 01/14/21 07:27 Elliptocytes Not Reportable 01/14/21 07:27 Acanthocytes (Spur) Not Reportable 01/14/21 07:27 Rouleaux Not Reportable 01/14/21 07:27 Hemoglobin C Crystals Not Reportable 01/14/21 07:27 Schistocytes Not Reportable 01/14/21 07:27 Malaria parasites Not Reportable 01/14/21 07:27 Johnathon Bodies Not Reportable 01/14/21 07:27 Hem Pathologist Commnt No 01/14/21 07:27 Sodium 140 mmol/L (137-145) 02/11/21 05:56 Potassium 4.3 mmol/L (3.6-5.0) 02/11/21 05:56 Chloride 103.2 mmol/L (98-107) 02/11/21 05:56 Carbon Dioxide 27 mmol/L (22-30) 02/11/21 05:56 Anion Gap 14 mmol/L 02/11/21 05:56 BUN 20 mg/dL (9-20) 02/11/21 05:56 Creatinine 0.6 mg/dL (0.8-1.3) L 02/11/21 05:56 Estimated GFR > 60 ml/min 02/11/21 05:56 BUN/Creatinine Ratio 33 % 02/11/21 05:56 Glucose 89 mg/dL (75-100) 02/11/21 05:56 POC Glucose 112 mg/dL (70-105) H 12/29/20 00:14 Lactic Acid 1.30 mmol/L (0.7-2.0) 12/28/20 08:13 Calcium 9.1 mg/dL (8.4-10.2) 02/11/21 05:56 Phosphorus 3.70 mg/dL (2.5-4.5) 12/30/20 13:13 Magnesium 2.10 mg/dL (1.7-2.3) 12/30/20 13:13 Total Bilirubin 0.50 mg/dL (0.1-1.2) 12/31/20 05:02 Direct Bilirubin < 0.2 mg/dL (0-0.2) 12/27/20 17:34 Indirect Bilirubin 0.2 mg/dL 12/27/20 17:34 AST 19 units/L (5-40) 12/31/20 05:02 ALT 12 units/L (7-56) 12/31/20 05:02 Alkaline Phosphatase 72 units/L (35-129) 12/31/20 05:02 Ammonia 21.0 umol/L (25-60) L 12/30/20 13:13 Total Protein 7.1 g/dL (6.3-8.2) 12/31/20 05:02 Albumin 3.7 g/dL (3.9-5) L 12/31/20 05:02 Albumin/Globulin Ratio 1.1 % 12/31/20 05:02 Urine Color Straw (Yellow) 12/28/20 02:15 Urine Turbidity Clear (Clear) 12/28/20 02:15 Urine pH 5.0 (5.0-7.0) 12/28/20 02:15 Ur Specific Foley 1.025 (1.003-1.030) 12/28/20 02:15 Urine Protein 100 mg/dl mg/dL (Negative) 12/28/20 02:15 Urine Glucose (UA) Negative mg/dL (Negative) 12/28/20 02:15 Urine Ketones Negative mg/dL (Negative) 12/28/20 02:15 Urine Blood Small (Negative) A 12/28/20 02:15 Urine Nitrite Negative (Negative) 12/28/20 02:15 Ur Reducing Substances Not Reportable 12/28/20 02:15 Urine Bilirubin Negative (Negative) 12/28/20 02:15 Urine Ictotest Not Reportable 12/28/20 02:15 Urine Urobilinogen < 2.0 mg/dL (<2.0) 12/28/20 02:15 Ur Leukocyte Esterase Negative (Negative) 12/28/20 02:15 Urine WBC (Auto) 3.0 /HPF (0.0-6.0) 12/28/20 02:15 Urine RBC (Auto) 4.0 /HPF (0.0-6.0) 12/28/20 02:15 U Epithel Cells (Auto) < 1.0 /HPF (0-13.0) 12/28/20 02:15 Hyaline Casts 1 /LPF 12/28/20 02:15 Granular Casts 1 /LPF 12/28/20 02:15 Urine Mucus Few /HPF 12/28/20 02:15 Salicylates < 0.3 mg/dL (2.8-20.0) L 12/27/20 17:34 Urine Opiates Screen Negative 12/27/20 17:11 Urine Methadone Screen Negative 12/27/20 17:11 Acetaminophen 5.0 ug/mL (10.0-30.0) L 12/27/20 17:34 Ur Barbiturates Screen Negative 12/27/20 17:11 Ur Phencyclidine Scrn Negative 12/27/20 17:11 Ur Amphetamines Screen Negative 12/27/20 17:11 U Benzodiazepines Scrn Negative 12/27/20 17:11 Urine Cocaine Screen Negative 12/27/20 17:11 U Marijuana (THC) Screen Negative 12/27/20 17:11 Drugs of Abuse Note Disclamer 12/27/20 17:11 Plasma/Serum Alcohol < 0.01 % (0-0.07) 12/27/20 17:34 [place]/IV: Voiding Method Urinal Active Medications - Current Medications Current Medications: Generic Name Dose Route Start Last Admin Trade Name Freq PRN Reason Stop Dose Admin Amlodipine Besylate 2.5 mg 12/29/20 10:00 02/14/21 10:22 Amlodipine 5 Mg Tab PO 2.5 mg QDAY CHELLE Administration Aspirin 81 mg 12/29/20 10:00 02/14/21 10:22 Aspirin 81 Mg Tab Chew PO 81 mg QDAY CHELLE Administration Atorvastatin Calcium 40 mg 12/29/20 22:00 02/13/21 23:16 Atorvastatin 40 Mg Tab PO 40 mg QHS CHELLE Administration Cyanocobalamin 1,000 mcg 12/31/20 15:00 02/14/21 10:22 Cyanocobalamin (Vit B-12) 1000 Mcg Tab PO 1,000 mcg QDAY CHELLE Administration Enoxaparin Sodium 40 mg 12/28/20 10:00 02/14/21 10:22 Enoxaparin 40 Mg/0.4 Ml Inj SUB-Q 40 mg QDAY CHELLE Administration Folic Acid 1 mg 01/03/21 10:00 02/14/21 10:22 Folic Acid 1 Mg Tab PO 1 mg DAILY CHELLE Administration Hydrochlorothiazide 25 mg 12/29/20 10:00 02/14/21 10:22 Hydrochlorothiazide 25 Mg Tab PO 25 mg QDAY CHELLE Administration Levetiracetam 500 mg 01/02/21 10:00 02/14/21 10:22 Levetiracetam 500 Mg Tab PO 500 mg BID CHELLE Administration Lorazepam 2 mg 10/03/21 11:00 12/30/20 22:21 Lorazepam 2 Mg/Ml Vial IV 2 mg Q1HR PRN Administration CIWA-Ar 8-15 Lorazepam 4 mg 12/30/20 11:00 Lorazepam 2 Mg/Ml Vial IV Q1HR PRN CIWA-Ar 16-25 Multivitamins/Minerals 1 each 01/03/21 10:00 02/14/21 10:22 Multivitamins,Ther W-Minerals Tab PO 1 each QDAY CHELLE Administration Risperidone 1 mg 12/31/20 22:00 02/14/21 10:22 Risperidone 1 Mg Tab PO 1 mg BID CHELLE Administration Thiamine HCl 100 mg 01/03/21 10:00 02/14/21 10:22 Thiamine 100 Mg Tab PO 100 mg QDAY CHELLE Administration Nutrition/Malnutrition Assess - Dietary Evaluation Nutrition/Malnutrition Findings: Nutrition Notes Start: 01/03/21 16:36 Freq: Status: Active Protocol: Document 01/31/21 16:24 RADHA (Rec: 01/31/21 16:41 RADHA [id number]) Nutrition Notes Initial or Follow up Reassessment Current Diagnosis Hypertension Other Pertinent Diagnosis Acute metabolic encephalopathy , EtOH withdrawal, schizophrenia Current Diet Regular Diet (since L 12/29). Labs/Tests 01/22: Last labs available: Nutritionally unremarkable. Pertinent Medications 01/31: Vitamin B12, Folic Acid , multivitamins/minerals, Vit B1, others nutritionally unremarkable. Height 6 ft Weight 91.2 kg [place] Body Weight (kg) 80.90 BMI 27.2 Weight change and time frame No new weights in past week since last assessment Weight Status Overweight Subjective/Other Information 01/31 consult for F/U. Pt awaiting placement. note 01/16: pt cleared for discharge Burn Absent Trauma Absent GI Symptoms None Food Allergy No Skin Integrity/Comment no complications reported Current % PO Good (75-100%) Minimum of two criteria No #1 Nutrition Diagnosis No nutrition diagnosis at this time Comments: Pt PO intake has been consistently Good at 100%. Pt awiting for placement. Is patient on ventilator? No Is Patient Ambulatory and/or Out of Bed No [facility] 2116.668 Kcal/Kg value to use for calculation 20 Approximate Energy Requirements Using 1824 kcal/Kg Calculation Used for Recommendations [place]-St Jeor Additional Notes Protein: 0.8-1 g/kg; 65-81 g/ Kg (from IBW). Fluids: 1 ml/kcal, or as per MD. Nutrition Intervention Change Diet Order: Continue Regular Diet. Goal #1 Maintain body weight within +/ -3% of current BWt during LOS. Goal #2 Reach and maintain acceptable chemistry lab values during LOS. Follow-Up By: 02/14/21 Additional Comments Continue to monitor food tolerance, %PO intake of meals , Hydration, and BM.
--- NOTE | 2021-02-15 08:23 | Progress Note ---
Assessment and Plan Assessment and plan: --Acute metabolic Encephalopathy (resolving) CT of the head and urine drug test-negative MRI of brain ordered unable to do due to lack of consent intiall. improved Chest x-ray negative for acute finding Consulted neurologist Patient appears to be at baseline --Hyponatremia/resolved hyponaremia mild-likely 2/2 dehydration continue IV hydration -- Hypertension Continue current antihypertensives. Monitor blood pressure PRN Hydralazine -- Possible Seizure disorder Seizure precautions, antiepileptic medications, neurology consult --?ETOH abuse thiamine, folic acid Closely monitor for alcohol withdrawal symptoms. --History of schizophrenia Continue psych medications psych consulted Closely monitor --DVT prophylaxis Subcutaneous Lovenox Daily Hospital course: 12/28: Patient now with fever of unknown origin. Still confused discussed with ID will obtain lumbar puncture. 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 MRI is pending. 12/29: Still with low grade fever, continue abx, follow cultures, LP to be done on thursday due to no Radiologist, Neurology input noted. Swallow eval ok, continue diet. start on HCTZ and Norvasc for HTN. No history on patient available here yet.] Want CT of the head read as negative during neurologist did review any suspect an acute ischemic stroke starting the patient on aspirin 81 mg daily unfortunately this was not started yesterday not sure why but will start that today. EEG is also ordered for possible subclinical seizures. He refused an ABG. Continue restraints as 12/30: Patient still with confusion, I wonder if he has some etoh issues, will go ahead and start on CIWA protocol in addition to Banana bag. CONTINUE restraints. 12/31: I was able to obtain records from [facility] as patient was recently admitted there on December 20 he was discharged on vitamin B12 1000 mcg daily, ferrous sulfate 325 mg twice a day and Keppra 1000 mg every 12 hours in addition to rest. Do not 1 tablet 2 times a day of 2 mg each. He does have underlying schizophrenia prior history of cocaine abuse and also history of seizure disorder and severe neurocognitive disorder. His court appointed [employer] agent is Grace Padilla phone #[phone]. At the time of his discharge from [place] he was supposed to be placed in a personal senior living as he has a history of wandering. I am not sure if this was done. As he was brought to us "found in the [place]". Clinically he is showing some improvement but with the new information will obtain psych consultation. 01/01; could not do the MRI/LP due to his severe agitation And noncooperation, will try MRI study again tomorrow with Ativan 01/02; radiology cannot do lumbar puncture/MRI study due to patient's severe blaise tation requiring four-point restraints And no family/insurance salesperson available to consent for the above tests when patient is calm and stable 01/03; patient continues to be agitated requiring restraints, noncooperative and unsteady for lumbar punctures and MRI Patient has no family to give consent, case management informed 01/04; patient is more calm, however gets agitated, CM informed me that patient's Michelle Padilla court appointed guardian, will call me To discuss and give consent for the tests and procedures ,waiting for patient's guardian call 01/05; still waiting for patient's guardian Indra Padilla to call and give consent for MRI/LP 01/06: Did not get a call from the patient's guardian Indra Padilla [Case management stated that patient's guardian will call me ] 01/07; patient's guardian Michelle Padilla did not contact me , CM could not reach her. No consent for LP/MRI Possible placement to [facility]. Discharge planning per case management 01/08: Patient remains restrained, continue to follow clinically. advertising traffic manager working on placement 01/09: foster care case manager working on SNF placement, follow clinically, patient remains confused and requiring restraints. Continue empiric antibiotics per ID recommendation. 01/10: Last day of antibiotic today, pending SNF placement 01/11: Completed empiric antibiotics, pending SNF placement, patient remains confused. We will monitor off restrain, continue supportive care 01/12: Pending SNF placement, continue to monitor off restrain, provide supportive care 01/13: continue to monitor off restrain, provide supportive care. pending SNF placement 01/14: pending SNF placement, continue to monitor off restrain, provide supportive care 01/22: Patient clinically stable, pending placement. 01/23: follow clinically, d/c when placement available 01/24: Patient denies any acute issue, resting on bed. Pending placement 01/25: no distress, pending placement. 01/26: Patient clinically stable, pending placement. 01/27; 01/25: no distress, pending placement. 01/28: Patient clinically stable, pending placement. cont supportive care 01/29/2021: Patient is calm, no behavioral issues reported. Vital signs stable. Awaiting placement. 01/30/2021: Patient is calm, no behavioral issues reported. Vital signs stable. Awaiting placement. 01/31/2021: Patient is psychotic but calm, no behavioral issues reported. Vital signs stable. Awaiting placement. 02/01/2021: Patient is calm. No behavioral issues reported. All vital signs are stable. Discussed with case management regarding placement. advertising traffic manager is assured me that she is calling every day and following up with [facility] in [place] 02/02/21: Awaiting placement 02/03: awaiting placement. 02/04: awaiting placement. discussed in CM rounds this AM. SW/CM working to finalize placement. 02/05: Awaiting placement and will follow up with case management with regards to disposition 02/06: No new issues. Patient awaiting placement 02/07: No new issues. Patient awaiting placement 02/08: No new issues. Patient awaiting placement 02/09: No new issues. Patient awaiting placement 02/10: No new issues. Patient awaiting placement 02/10: No new issues. Patient awaiting placement 02/12: No new issues, Pending placement. 02/13: No new issues, Pending placement. 02/14: No new issues, Pending placement. 02/15: Hospitalist Physical - Physical exam Narrative exam: General appearance: Present: no acute distress, well-nourished - EENT Eyes: Present: PERRL, EOM intact ENT: hearing intact - Neck Neck: Present: supple - Respiratory Respiratory effort: normal Respiratory: bilateral: CTA - Cardiovascular Rhythm: regular - Extremities Extremities: No edema - Abdominal General gastrointestinal: soft, non-tender - Integumentary Integumentary: Absent: rash - Psychiatric Psychiatric: other (Psychotic) - Neurologic Neurologic: no focal deficits - Constitutional Vitals: Temp Pulse Resp BP Pulse Ox 98.1 F 57 L 20 123/63 99 02/15/21 03:12 02/15/21 03:12 02/15/21 03:12 02/15/21 03:12 02/15/21 03:12 General appearance: Present: no acute distress, well-nourished Results - Labs CBC & Chem 7: 02/11/21 05:56 02/11/21 05:56 Labs: Laboratory Last Values WBC 6.3 K/mm3 (4.5-11.0) 02/11/21 05:56 RBC 4.86 M/mm3 (3.65-5.03) 02/11/21 05:56 Hgb 10.9 gm/dl (11.8-15.2) L 02/11/21 05:56 Hct 34.5 % (35.5-45.6) L 02/11/21 05:56 MCV 71 fl (84-94) L 02/11/21 05:56 MCH 22 pg (28-32) L 02/11/21 05:56 MCHC 31 % (32-34) L 02/11/21 05:56 RDW 15.9 % (13.2-15.2) H 02/11/21 05:56 Plt Count 223 K/mm3 (140-440) 02/11/21 05:56 Lymph % (Auto) 30.7 % (13.4-35.0) 02/11/21 05:56 [place] % (Auto) 11.2 % (0.0-7.3) H 02/11/21 05:56 Eos % (Auto) 10.7 % (0.0-4.3) H 02/11/21 05:56 Baso % (Auto) 0.9 % (0.0-1.8) 02/11/21 05:56 Lymph # (Auto) 1.9 K/mm3 (1.2-5.4) 02/11/21 05:56 [place] # (Auto) 0.7 K/mm3 (0.0-0.8) 02/11/21 05:56 Eos # (Auto) 0.7 K/mm3 (0.0-0.4) H 02/11/21 05:56 Baso # (Auto) 0.1 K/mm3 (0.0-0.1) 02/11/21 05:56 Add Manual Diff Complete 01/14/21 07:27 Total Counted 100 01/14/21 07:27 Seg Neutrophils % 46.5 % (40.0-70.0) 02/11/21 05:56 Seg Neuts % (Manual) 76.0 % (40.0-70.0) H 01/14/21 07:27 Band Neutrophils % 1.0 % 01/14/21 07:27 Lymphocytes % (Manual) 8.0 % (13.4-35.0) L 01/14/21 07:27 Reactive Lymphs % (Man) 1.0 % 01/14/21 07:27 Monocytes % (Manual) 4.0 % (0.0-7.3) 01/14/21 07:27 Eosinophils % (Manual) 1.0 % (0.0-4.3) 01/14/21 07:27 Myelocytes % 9.0 % 01/14/21 07:27 Nucleated RBC % Not Reportable 01/14/21 07:27 Seg Neutrophils # 2.9 K/mm3 (1.8-7.7) 02/11/21 05:56 Seg Neutrophils # Man 4.5 K/mm3 (1.8-7.7) 01/14/21 07:27 Band Neutrophils # 0.1 K/mm3 01/14/21 07:27 Lymphocytes # (Manual) 0.5 K/mm3 (1.2-5.4) L 01/14/21 07:27 Abs React Lymphs (Man) 0.1 K/mm3 01/14/21 07:27 Monocytes # (Manual) 0.2 K/mm3 (0.0-0.8) 01/14/21 07:27 Eosinophils # (Manual) 0.1 K/mm3 (0.0-0.4) 01/14/21 07:27 Basophils # (Manual) 0.0 K/mm3 (0.0-0.1) 01/14/21 07:27 Metamyelocytes # 0.0 K/mm3 01/14/21 07:27 Myelocytes # 0.5 K/mm3 01/14/21 07:27 Promyelocytes # 0.0 K/mm3 01/14/21 07:27 Blast Cells # 0.0 K/mm3 01/14/21 07:27 WBC Morphology Not Reportable 01/14/21 07:27 Hypersegmented Neuts Not Reportable 01/14/21 07:27 Hyposegmented Neuts Not Reportable 01/14/21 07:27 Hypogranular Neuts Not Reportable 01/14/21 07:27 Smudge Cells Not Reportable 01/14/21 07:27 Toxic Granulation Not Reportable 01/14/21 07:27 Toxic Vacuolation Not Reportable 01/14/21 07:27 Dohle Bodies Not Reportable 01/14/21 07:27 Pelger-Huet Anomaly Not Reportable 01/14/21 07:27 Diana Rods Not Reportable 01/14/21 07:27 Platelet Estimate Consistent w auto 01/14/21 07:27 Clumped Platelets Not Reportable 01/14/21 07:27 Plt Clumps, EDTA Not Reportable 01/14/21 07:27 Large Platelets Not Reportable 01/14/21 07:27 Giant Platelets Not Reportable 01/14/21 07:27 Platelet Satelliting Not Reportable 01/14/21 07:27 Plt Morphology Comment Not Reportable 01/14/21 07:27 RBC Morphology Not Reportable 01/14/21 07:27 Dimorphic RBCs Not Reportable 01/14/21 07:27 Polychromasia Not Reportable 01/14/21 07:27 Hypochromasia Not Reportable 01/14/21 07:27 Poikilocytosis Not Reportable 01/14/21 07:27 Anisocytosis Not Reportable 01/14/21 07:27 Microcytosis Not Reportable 01/14/21 07:27 Macrocytosis Not Reportable 01/14/21 07:27 Spherocytes Not Reportable 01/14/21 07:27 Pappenheimer Bodies Not Reportable 01/14/21 07:27 Sickle Cells Not Reportable 01/14/21 07:27 Target Cells Not Reportable 01/14/21 07:27 Tear Drop Cells Not Reportable 01/14/21 07:27 Ovalocytes Not Reportable 01/14/21 07:27 Helmet Cells Not Reportable 01/14/21 07:27 Solano-Orick Bodies Not Reportable 01/14/21 07:27 [place] Rings Not Reportable 01/14/21 07:27 Aakash Cells Not Reportable 01/14/21 07:27 Bite Cells Not Reportable 01/14/21 07:27 Crenated Cell Not Reportable 01/14/21 07:27 Elliptocytes Not Reportable 01/14/21 07:27 Acanthocytes (Spur) Not Reportable 01/14/21 07:27 Rouleaux Not Reportable 01/14/21 07:27 Hemoglobin C Crystals Not Reportable 01/14/21 07:27 Schistocytes Not Reportable 01/14/21 07:27 Malaria parasites Not Reportable 01/14/21 07:27 Johnathon Bodies Not Reportable 01/14/21 07:27 Hem Pathologist Commnt No 01/14/21 07:27 Sodium 140 mmol/L (137-145) 02/11/21 05:56 Potassium 4.3 mmol/L (3.6-5.0) 02/11/21 05:56 Chloride 103.2 mmol/L (98-107) 02/11/21 05:56 Carbon Dioxide 27 mmol/L (22-30) 02/11/21 05:56 Anion Gap 14 mmol/L 02/11/21 05:56 BUN 20 mg/dL (9-20) 02/11/21 05:56 Creatinine 0.6 mg/dL (0.8-1.3) L 02/11/21 05:56 Estimated GFR > 60 ml/min 02/11/21 05:56 BUN/Creatinine Ratio 33 % 02/11/21 05:56 Glucose 89 mg/dL (75-100) 02/11/21 05:56 POC Glucose 112 mg/dL (70-105) H 12/29/20 00:14 Lactic Acid 1.30 mmol/L (0.7-2.0) 12/28/20 08:13 Calcium 9.1 mg/dL (8.4-10.2) 02/11/21 05:56 Phosphorus 3.70 mg/dL (2.5-4.5) 12/30/20 13:13 Magnesium 2.10 mg/dL (1.7-2.3) 12/30/20 13:13 Total Bilirubin 0.50 mg/dL (0.1-1.2) 12/31/20 05:02 Direct Bilirubin < 0.2 mg/dL (0-0.2) 12/27/20 17:34 Indirect Bilirubin 0.2 mg/dL 12/27/20 17:34 AST 19 units/L (5-40) 12/31/20 05:02 ALT 12 units/L (7-56) 12/31/20 05:02 Alkaline Phosphatase 72 units/L (35-129) 12/31/20 05:02 Ammonia 21.0 umol/L (25-60) L 12/30/20 13:13 Total Protein 7.1 g/dL (6.3-8.2) 12/31/20 05:02 Albumin 3.7 g/dL (3.9-5) L 12/31/20 05:02 Albumin/Globulin Ratio 1.1 % 12/31/20 05:02 Urine Color Straw (Yellow) 12/28/20 02:15 Urine Turbidity Clear (Clear) 12/28/20 02:15 Urine pH 5.0 (5.0-7.0) 12/28/20 02:15 Ur Specific [place] 1.025 (1.003-1.030) 12/28/20 02:15 Urine Protein 100 mg/dl mg/dL (Negative) 12/28/20 02:15 Urine Glucose (UA) Negative mg/dL (Negative) 12/28/20 02:15 Urine Ketones Negative mg/dL (Negative) 12/28/20 02:15 Urine Blood Small (Negative) A 12/28/20 02:15 Urine Nitrite Negative (Negative) 12/28/20 02:15 Ur Reducing Substances Not Reportable 12/28/20 02:15 Urine Bilirubin Negative (Negative) 12/28/20 02:15 Urine Ictotest Not Reportable 12/28/20 02:15 Urine Urobilinogen < 2.0 mg/dL (<2.0) 12/28/20 02:15 Ur Leukocyte Esterase Negative (Negative) 12/28/20 02:15 Urine WBC (Auto) 3.0 /HPF (0.0-6.0) 12/28/20 02:15 Urine RBC (Auto) 4.0 /HPF (0.0-6.0) 12/28/20 02:15 U Epithel Cells (Auto) < 1.0 /HPF (0-13.0) 12/28/20 02:15 Hyaline Casts 1 /LPF 12/28/20 02:15 Granular Casts 1 /LPF 12/28/20 02:15 Urine Mucus Few /HPF 12/28/20 02:15 Salicylates < 0.3 mg/dL (2.8-20.0) L 12/27/20 17:34 Urine Opiates Screen Negative 12/27/20 17:11 Urine Methadone Screen Negative 12/27/20 17:11 Acetaminophen 5.0 ug/mL (10.0-30.0) L 12/27/20 17:34 Ur Barbiturates Screen Negative 12/27/20 17:11 Ur Phencyclidine Scrn Negative 12/27/20 17:11 Ur Amphetamines Screen Negative 12/27/20 17:11 U Benzodiazepines Scrn Negative 12/27/20 17:11 Urine Cocaine Screen Negative 12/27/20 17:11 U Marijuana (THC) Screen Negative 12/27/20 17:11 Drugs of Abuse Note Disclamer 12/27/20 17:11 Plasma/Serum Alcohol < 0.01 % (0-0.07) 12/27/20 17:34 [place]/IV: Voiding Method Urinal Active Medications - Current Medications Current Medications: Generic Name Dose Route Start Last Admin Trade Name Freq PRN Reason Stop Dose Admin Amlodipine Besylate 2.5 mg 12/29/20 10:00 02/14/21 10:22 Amlodipine 5 Mg Tab PO 2.5 mg QDAY CHELLE Administration Aspirin 81 mg 12/29/20 10:00 02/14/21 10:22 Aspirin 81 Mg Tab Chew PO 81 mg QDAY CHELLE Administration Atorvastatin Calcium 40 mg 12/29/20 22:00 02/14/21 21:05 Atorvastatin 40 Mg Tab PO 40 mg QHS CHELLE Administration Cyanocobalamin 1,000 mcg 12/31/20 15:00 02/14/21 10:22 Cyanocobalamin (Vit B-12) 1000 Mcg Tab PO 1,000 mcg QDAY CHELLE Administration Enoxaparin Sodium 40 mg 12/28/20 10:00 02/14/21 10:22 Enoxaparin 40 Mg/0.4 Ml Inj SUB-Q 40 mg QDAY CHELLE Administration Folic Acid 1 mg 01/03/21 10:00 02/14/21 10:22 Folic Acid 1 Mg Tab PO 1 mg DAILY CHELLE Administration Hydrochlorothiazide 25 mg 12/29/20 10:00 02/14/21 10:22 Hydrochlorothiazide 25 Mg Tab PO 25 mg QDAY CHELLE Administration Levetiracetam 500 mg 01/02/21 10:00 02/14/21 21:05 Levetiracetam 500 Mg Tab PO 500 mg BID CHELLE Administration Lorazepam 2 mg 12/30/20 11:00 12/30/20 22:21 Lorazepam 2 Mg/Ml Vial IV 2 mg Q1HR PRN Administration CIWA-Ar 8-15 Lorazepam 4 mg 12/30/20 11:00 Lorazepam 2 Mg/Ml Vial IV Q1HR PRN CIWA-Ar 16-25 Multivitamins/Minerals 1 each 01/03/21 10:00 02/14/21 10:22 Multivitamins,Ther W-Minerals Tab PO 1 each QDAY CHELLE Administration Risperidone 1 mg 12/31/20 22:00 02/14/21 21:05 Risperidone 1 Mg Tab PO 1 mg BID CHELLE Administration Thiamine HCl 100 mg 01/03/21 10:00 02/14/21 10:22 Thiamine 100 Mg Tab PO 100 mg QDAY CHELLE Administration Nutrition/Malnutrition Assess - Dietary Evaluation Nutrition/Malnutrition Findings: Nutrition Notes Start: 01/03/21 16:36 Freq: Status: Active Protocol: Document 02/14/21 13:34 RADHA (Rec: 02/14/21 13:53 RADHA [id number]) Nutrition Notes Initial or Follow up Reassessment Current Diagnosis Hypertension Other Pertinent Diagnosis Acute metabolic encephalopathy , EtOH withdrawal, schizophrenia Current Diet Regular Diet (since L 12/29). Labs/Tests 02/11: Crea 0.6. Pertinent Medications 02/14: Vit B12, Folic ac, Multivitamin & minerals, Thiamine, others nutritionally unremarkable. Height 6 ft Weight 94.8 kg [place] Body Weight (kg) 80.90 BMI 28.3 Weight change and time frame gain of 3.6 Kg reported. Weight Status Overweight Subjective/Other Information RD consult for routine F/U. Pt awaiting placement for discharge. Percent of energy/protein needs met: Prescribed Regular Diet provides for energy/protein needs (2,289 Kcal/89 g) during LOS. Burn Absent Trauma Absent GI Symptoms None Food Allergy No Skin Integrity/Comment Clear, warm, dry. Current % PO Good (75-100%) Minimum of two criteria No #1 Nutrition Diagnosis No nutrition diagnosis at this time Comments: Pt PO intake has been consistently Good at 100%. Pt awiting for placement. Diagnosis Progress(for reassessment Improved documentation) Is patient on ventilator? No Is Patient Ambulatory and/or Out of Bed No REE-([facility]-confined to bed) 2159.820 Kcal/Kg value to use for calculation 20 Approximate Energy Requirements Using 1896 kcal/Kg Calculation Used for Recommendations William Gordon Additional Notes Protein: 0.8-1 g/kg; 65-81 g/ Kg (from IBW). Fluids: 1 ml/kcal, or as per MD. Nutrition Intervention Change Diet Order: Continue Regular Diet. Goal #1 Maintain body weight within +/ -3% of current BWt during LOS. Goal #2 Reach and maintain acceptable chemistry lab values during LOS. Follow-Up By: 02/21/21 Additional Comments Continue to monitor food tolerance, %PO intake of meals , Hydration, and BM.
[2021-02-15 08:38] VITALS: BP 119/79
[2021-02-15] MEDS: levETIRAcetam 500 MG TAB PO SCH (09:57)
[2021-02-15] MEDS: FOLIC ACID 1 MG TAB PO SCH (09:57)
[2021-02-15] MEDS: risperiDONE 1 MG TAB PO SCH (09:57)
[2021-02-15] MEDS: ENOXAPARIN 40 MG/0.4 ML INJ SUB-Q SCH (09:57)
[2021-02-15] MEDS: MULTIVITAMINS,THER W-MINERALS TAB PO SCH (09:57)
[2021-02-15] MEDS: hydroCHLOROthiazide 25 MG TAB PO SCH (09:57)
[2021-02-15] MEDS: amLODIPine 5 MG TAB PO SCH (09:58)
[2021-02-15] MEDS: THIAMINE 100 MG TAB PO SCH (09:58)
[2021-02-15] MEDS: ASPIRIN 81 MG TAB CHEW PO SCH (09:58)
[2021-02-15] MEDS: CYANOCOBALAMIN (VIT B-12) 1000 MCG TAB PO SCH (09:58)
--- NOTE | 2021-02-15 15:24 | Discharge Summary ---
Providers - Providers Date of Admission: 12/27/20 22:21 Date of discharge: 02/15/21 Attending physician: HANNAH HELTON MD 12/27/20 Consult to Case Management [CONS] Routine Services Needed at Discharge: Paramedical Aide Notified:: case management 12/27/20 22:16 Consult to Physician [CONS] Stat Comment: Consulting Provider: WEI ALBARADO Physician Instructions: Reason For Exam: acute encephalopathy 12/28/20 09:00 Consult to Physician [CONS] Routine Comment: Consulting Provider: AJIT ESTRADA Physician Instructions: Reason For Exam: sepsis 12/31/20 13:41 Consult to Physician [CONS] Routine Comment: Consulting Provider: DANIE DOWELL Physician Instructions: Reason For Exam: schizophrenia 01/02/21 14:47 Physical Therapy Evaluation and Treat [CONS] Urgent Comment: Reason For Exam: PT to eval and treat Primary care physician: PULMONARY DISEASE SPECIALIST Hospitalization Reason for admission: altered mental status Condition: Stable Hospital course: History of present illness: patient is seen in ED at bedside. patient name and age Unknown. per Ed record patient was brought to ED via EMS. Per EMS patient was found in the [place] and brought in for evaluation. Patient still unresponsive verbal and tactile stimuli. However, respiration is even and all unlabored. Blood pressure 168/88, oxygen saturation on 2 L 99%, respiration [address] heart rate [address] of the head was done and is negative. Chest x-ray done is negative, urine drug screen showed negative for illicit drug, and blood work showed no acute finding. MRI of the brain ordered lactic acid ordered an elevated. Will start patient on empiric antibiotic and IV hydration. Discussed plan of care with the attending Dr. Chapman. Neurologist consulted. --Acute metabolic Encephalopathy (resolving) CT of the head and urine drug test-negative MRI of brain ordered unable to do due to lack of consent intiall. improved Chest x-ray negative for acute finding Consulted neurologist Patient appears to be at baseline --Hyponatremia/resolved hyponaremia mild-likely 2/2 dehydration continue IV hydration -- Hypertension Continue current antihypertensives. Monitor blood pressure PRN Hydralazine -- Possible Seizure disorder Seizure precautions, antiepileptic medications, neurology consult --?ETOH abuse thiamine, folic acid Closely monitor for alcohol withdrawal symptoms. --History of schizophrenia Continue psych medications psych consulted Closely monitor --DVT prophylaxis Subcutaneous Lovenox Daily Hospital course: 12/28: Patient now with fever of unknown origin. Still confused discussed with ID will obtain lumbar puncture. 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 MRI is pending. 12/29: Still with low grade fever, continue abx, follow cultures, LP to be done on thursday due to no Radiologist, Neurology input noted. Swallow eval ok, continue diet. start on HCTZ and Norvasc for HTN. No history on patient available here yet.] Want CT of the head read as negative during neurologist did review any suspect an acute ischemic stroke starting the patient on aspirin 81 mg daily unfortunately this was not started yesterday not sure why but will start that today. EEG is also ordered for possible subclinical seizures. He refused an ABG. Continue restraints as 12/30: Patient still with confusion, I wonder if he has some etoh issues, will go ahead and start on CIWA protocol in addition to Banana bag. CONTINUE restraints. 12/31: I was able to obtain records from [facility] as patient was recently admitted there on December 20 he was discharged on vitamin B12 1000 mcg daily, ferrous sulfate 325 mg twice a day and Keppra 1000 mg every 12 hours in addition to rest. Do not 1 tablet 2 times a day of 2 mg each. He does have underlying schizophrenia prior history of cocaine abuse and also history of seizure disorder and severe neurocognitive disorder. His court appointed [employer] agent is Grace Padilla phone #[phone]. At the time of his discharge from [facility] he was supposed to be placed in a [facility] as he has a history of wandering. I am not sure if this was done. As he was brought to us "found in the [place]". Clinically he is showing some improvement but with the new information will obtain psych consultation. 01/01; could not do the MRI/LP due to his severe agitation And noncooperation, will try MRI study again tomorrow with Ativan 01/02; radiology cannot do lumbar puncture/MRI study due to patient's severe agitation requiring four-point restraints And no family/contact center rep available to consent for the above tests when patient is calm and stable 01/03; patient continues to be agitated requiring restraints, noncooperative and unsteady for lumbar punctures and MRI Patient has no family to give consent, case management informed 01/04; patient is more calm, however gets agitated, CM informed me that patient's Michelle Padilla court appointed guardian, will call me To discuss and give consent for the tests and procedures ,waiting for patient's guardian call 01/05; still waiting for patient's guardian Indra Padilla to call and give consent for MRI/LP 01/06: Did not get a call from the patient's guardian Indra Padilla [Case management stated that patient's guardian will call me ] 01/07; patient's guardian Michelle Padilla did not contact me , CM could not reach her. No consent for LP/MRI Possible placement to [facility]. Discharge planning per magen e management 01/08: Patient remains restrained, continue to follow clinically. curriculum development manager working on placement 01/09: case management rn working on SNF placement, follow clinically, patient remains confused and requiring restraints. Continue empiric antibiotics per ID recommendation. 01/10: Last day of antibiotic today, pending SNF placement 01/11: Completed empiric antibiotics, pending SNF placement, patient remains confused. We will monitor off restrain, continue supportive care 01/12: Pending SNF placement, continue to monitor off restrain, provide supportive care 01/13: continue to monitor off restrain, provide supportive care. pending SNF placement 01/14: pending SNF placement, continue to monitor off restrain, provide supportive care 01/22: Patient clinically stable, pending placement. 01/23: follow clinically, d/c when placement available 01/24: Patient denies any acute issue, resting on bed. Pending placement 01/25: no distress, pending placement. 01/26: Patient clinically stable, pending placement. 01/27; 01/25: no distress, pending placement. 01/28: Patient clinically stable, pending placement. cont supportive care 01/29/2021: Patient is calm, no behavioral issues reported. Vital signs stable. Awaiting placement. 01/30/2021: Patient is calm, no behavioral issues reported. Vital signs stable. Awaiting placement. 01/31/2021: Patient is psychotic but calm, no behavioral issues reported. Vital signs stable. Awaiting placement. 02/01/2021: Patient is calm. No behavioral issues reported. All vital signs are stable. Discussed with case management regarding placement. curriculum development manager is assured me that she is calling every day and following up with [facility] in [place] 02/02/21: Awaiting placement 02/03: awaiting placement. 02/04: awaiting placement. discussed in CM rounds this AM. SW/CM working to finalize placement. 02/05: Awaiting placement and will follow up with case management with regards to disposition 02/06: No new issues. Patient awaiting placement 02/07: No new issues. Patient awaiting placement 02/08: No new issues. Patient awaiting placement 02/09: No new issues. Patient awaiting placement 02/10: No new issues. Patient awaiting placement 02/10: No new issues. Patient awaiting placement 02/12: No new issues, Pending placement. 02/13: No new issues, Pending placement. 02/14: No new issues, Pending placement. 02/15: Placed at [facility] facility. Discharge today Disposition: HOME / SELF CARE / HOMELESS Final Discharge Diagnosis (Prints w/discharge instructions): Acute metabolic encephalopathy Time spent for discharge: 35 Core Measure Documentation - Palliative Care Palliative Care/ Comfort Measures: Not Applicable - Core Measures Any of the following diagnoses?: none Exam - Physical Exam Narrative exam: Physical Exam: VITAL SIGNS: Reviewed. GENERAL: The patient appears normally developed, Vital signs as documented. HEAD: No signs of head trauma. EYES: Pupils are equal. Extraocular motions intact. EARS: Hearing grossly intact. MOUTH: Oropharynx is normal. NECK: No adenopathy, no JVD. CHEST: Chest with clear breath sounds bilaterally. No wheezes, rales, or rhonchi. CARDIAC: Regular rate and rhythm. S1 and S2, without murmurs, gallops, or rubs. VASCULAR: No Edema. Peripheral pulses normal and equal in all extremities. ABDOMEN: Soft, non tender and non distended. No rebound or guarding, and no masses palpated. Bowel Sounds normal. MUSCULOSKELETAL: Good range of motion of all major joints. Extremities without clubbing, cyanosis or edema. NEUROLOGIC EXAM: Alert and oriented x 4. no focal sensory or strength deficits. PSYCHIATRIC: Mood normal. SKIN: detail exam as documented in skin assessment - Constitutional Vitals: Temp Pulse Resp BP Pulse Ox 98.0 F 75 16 119/79 99 02/15/21 08:09 02/15/21 08:09 02/15/21 08:09 02/15/21 08:09 02/15/21 10:00 Plan Care Plan Goals: Professional and Agency Contacts To help Resolve Crises(20/10) [place] Crisis Line: Suicide Prevention Line: Crisis Text Line: Text START to 119733 Emergency: 911 Outpatient COMMUNITY Behavioral Health Resources: [place]: [facility] [address], [place] [address] MOMO: [facility] [employer] [employer] [facility] [address] [place] [address] [place]: [facility] - [address] [place] [address] Thursday thru Thursday - 8am - 5pm [place]: [employer] [facility] Address: [address] [place] [address] [place]: [facility] Address: [address] [place] [address] Thursday thru Thursday- 7am-2pm [facility] Address: [address] [place] [address] Thursday thru Thursday: 8:30AM-5PM Follow up with: PRIMARY CAREMD [Primary Care Provider] - 7 Days Prescriptions: AtorvaSTATin [Lipitor] 40 mg PO QHS 30 Days #30 tablet amLODIPine 2.5 mg PO QDAY 30 Days #30 tablet Aspirin [Aspirin BABY CHEW TAB] 81 mg PO QDAY 30 Days #30 tab.chew Folic Acid [Folvite] 1 mg PO DAILY 30 Days #30 tablet hydroCHLOROthiazide [HCTZ] 25 mg PO QDAY 30 Days #30 tablet levETIRAcetam [Keppra TAB] 500 mg PO BID 30 Days #60 tablet risperiDONE [RisperDAL] 1 mg PO BID 30 Days #60 tablet Thiamine [Vitamin B-1] 100 mg PO QDAY 30 Days #30 tablet
== END 2021-02-15 16:17 | DRG 92 ==
LOC: ED 16:20 → 4A 22:21 → EDBD 22:21
PROVIDERS: ADMIT Internal Medicine Geriatric Medicine; ATTEND Internal Medicine
PROC: 4A033R1 Measurement of Arterial Saturation, Peripheral, Percutaneous Approach (ICD-10-PCS; principal; 2020-12-29)
DX: G92.9 Unspecified toxic encephalopathy (principal); E87.1 Hypo-osmolality and hyponatremia; R47.01 Aphasia; G40.909 Epilepsy, unspecified, not intractable, without status epilepticus; F10.10 Alcohol abuse, uncomplicated; Y90.9 Presence of alcohol in blood, level not specified; E86.0 Dehydration
CPT/HCPCS: 36415; 70450; 71045; 80048; 80053; 80076; 80307; 80320; 81001; 82040; 82140; 82962; 83735; 84100; 85007; 85025; 85027; 87040; 93005; 95819; G0378; G0480; J0133; J0360; J0696; J1650; J2060; J2310; J3411; J3486; J7030; J7042

== ENCOUNTER 2021-04-18 10:42 | Emergency (ER) | payer MEDICAID ==
[2021-04-18] MEDS ORDERED: diphenhydrAMINE 50 MG/ML VIAL IM ONE (15:18)
[2021-04-18] MEDS ORDERED: LORazepam 2 MG/ML VIAL IM PRN (15:18)
[2021-04-18] MEDS ORDERED: HALOPERIDOL LACTATE 5 MG/1 ML INJ IM PRN (15:18)
[2021-04-18] MEDS ORDERED: LACTATED RINGERS 1,000 ML IV ONE (15:23)
[2021-04-18] MEDS ORDERED: PANTOPRAZOLE 40 MG INJ IV ONE (15:23)
[2021-04-18] MEDS ORDERED: ONDANSETRON 4 MG/2 ML INJ IV ONE (15:23)
[2021-04-18] MEDS ORDERED: THIAMINE 100 MG in SODIUM CHLORIDE 0.9% 50 ML IV ONE (16:23)
[2021-04-18 16:36] LABS: Basophils # (Auto) 0.1 K/mm3 (0.0-0.1); Basophils % (Auto) 1.3 % (0.0-1.8); Eosinophils # (Auto) 0.4 K/mm3 (0.0-0.4); Eosinophils % (Auto) 4.9 % (0.0-4.3); Hematocrit 39.3 % (35.5-45.6); Hemoglobin 12.1 gm/dl (11.8-15.2); Lymphocytes # (Auto) 1.8 K/mm3 (1.2-5.4); Lymphocytes % (Auto) 23.4 % (13.4-35.0); Mean Corpuscular HGB Conc 31 % (32-34); Mean Corpuscular Volume 73 fl (84-94); Monocytes # (Auto) 0.5 K/mm3 (0.0-0.8); Platelet Count 245 K/mm3 (140-440)
--- NOTE | 2021-04-18 16:40 | XRay Report ---
CHEST 1 VIEW 04/18/2021 3:31 PM INDICATION / CLINICAL INFORMATION: Altered Mental Status. COMPARISON: None available. FINDINGS: SUPPORT DEVICES: None. HEART / MEDIASTINUM: No significant abnormality. LUNGS / PLEURA: No significant pulmonary or pleural abnormality. No pneumothorax. ADDITIONAL FINDINGS: No significant additional findings. IMPRESSION: 1. No acute findings. Signer Name: Karthik Cisse MD Signed: 04/18/2021 4:36 PM Workstation Name: [id number]
[2021-04-18 16:46] LABS: INR 1.05 (0.87-1.13)
--- NOTE | 2021-04-18 16:46 | Cat Scan Report ---
CT ABDOMEN AND PELVIS WITHOUT CONTRAST INDICATION / CLINICAL INFORMATION: n/v, ams, hx of coffee groun emesis. TECHNIQUE: Axial CT images were obtained through the abdomen and pelvis without IV contrast. All CT scans at this location are performed using CT dose reduction for ALARA by means of automated exposure control. COMPARISON: None available. FINDINGS: LOWER CHEST: There is a very small right pleural effusion. LIVER: No significant abnormality. GALLBLADDER: No significant abnormality. BILE DUCTS: No significant abnormality. PANCREAS: No significant abnormality. SPLEEN: No significant abnormality. ADRENALS: No significant abnormality. RIGHT KIDNEY / URETER: There is a small hypodensity in the upper pole likely representing a cyst. LEFT KIDNEY / URETER: There are hypodensities characteristic of cysts. STOMACH / SMALL BOWEL: No significant abnormality. COLON: No significant abnormality. APPENDIX: No significant abnormality. PERITONEUM: No free fluid. No free air. No fluid collection. LYMPH NODES: No significant adenopathy. AORTA / ARTERIES: No significant abnormality. IVC / VEINS: No significant abnormality. URINARY BLADDER: No significant abnormality. REPRODUCTIVE ORGANS: No significant abnormality. ADDITIONAL FINDINGS: None. SKELETAL SYSTEM: No acute abnormality. There are healed left posterior rib fractures. IMPRESSION: 1. There is no obstruction, inflammation, or free air. There are no abnormal fluid collections. No ac hopi abnormality is seen. Signer Name: Ran Rob MD Signed: 04/18/2021 4:41 PM Workstation Name: [id number]
[2021-04-18 16:47] LABS: Partial Thromboplastin Time 32.6 Sec. (24.2-36.6)
--- NOTE | 2021-04-18 16:52 | Cat Scan Report ---
NONENHANCED CT SCAN OF THE HEAD: INDICATION / CLINICAL INFORMATION: 61 years Male; Altered Mental Status. TECHNIQUE: Routine CT head without contrast. All CT scans at this location are performed using CT dos e reduction for ALARA by means of automated exposure control. COMPARISON: CT scan of the head from 12/27/2020 FINDINGS: BRAIN / INTRACRANIAL CONTENTS: No acute hemorrhage, mass effect, midline shift, hydrocephalus, or acu te, large territorial infarct. The last CT scan, low-attenuation area in the right inferior medial frontal lobe and may be a lesser degree in the left anterior inferior medial frontal lobe and in the inferior right frontal gyrus; thi s appears to be posttraumatic old healed contusion; is there recent head injury since 12/27/2020 Seen in the previous CT scan, volume loss in the cerebellar vermis; cerebellar hemispheres normal; co rtical sulci in the cerebral hemispheres normal No significant white matter abnormality. CRANIOCERVICAL JUNCTION: No significant abnormality. ORBITS: No significant abnormality of visualized orbits. SINUSES / MASTOIDS: No significant abnormality of the visualized paranasal sinuses or mastoid air aruna ls. ADDITIONAL FINDINGS: None. IMPRESSION: No acute focal parenchymal lesion in the brain Since the last CT scan, low-attenuation area in the anterior inferior medial and lateral right fronta l lobe, probably from old healed contusion Signer Name: Gary Valencia MD Signed: 04/18/2021 4:47 PM Workstation Name: [id number]
[2021-04-18 17:03] LABS: Alanine Aminotransferase 24 units/L (7-56); Albumin 4.4 g/dL (3.9-5); BUN/Creatinine Ratio 19; Blood Urea Nitrogen 15 mg/dL (9-20); Calcium 9.9 mg/dL (8.4-10.2); Hemolysis Index 5
--- NOTE | 2021-04-18 17:25 | Emergency Department Report ---
ED General Adult HPI - General Chief complaint: Altered Mental Status Stated complaint: leave me alone Time Seen by Provider: 04/18/21 14:39 Source: patient, EMS ( EMS documentation not available at time of chart dictation ), RN notes reviewed, old records reviewed Mode of arrival: Stretcher Limitations: Other (Disorganized behavior. Poor historian. Psychosis.) - History of Present Illness Initial comments: The patient was evaluated in the emergency department for symptoms described in the history of present illness. He/she was evaluated in the context of the global COVID-19 pandemic, which necessitated consideration that the patient might be at risk for infection with the virus that causes COVID-19. Institutional protocols and algorithms that pertain to the evaluation of patients at risk for COVID-19 are in a state of rapid change based on information released by regulatory bodies including the CDC and federal and state organizations. These policies and algorithms were followed during the patient's care in the emergency department. Please note that these policies, procedures and recommendations changed on a rapid basis. The patient is a 61-year-old gentleman. This patient was admitted to the hospital December 2020, through January 2019, and had a rather prolonged hospital stay. His past medical history includes schizophrenia, dementia, and possible seizures. He is referred to the emergency room by [facility], with articulated/threatening complaint of "resident vomited coffee color, combative, change in mental status. The patient himself is awake, but he is altered. He is disorganized. He is not sure if he is having pain. He denies homicidality and suicidality. He is asking to be left alone. Patient is not accompanied by friends or family at this time for collateral information or additional information. Home medications include atorvastatin, iron sulfate, Keppra, magnesium oxide, and Seroquel. -: unknown Severity scale (0 -10): 0 - Related Data Previous Rx's Medication Instructions Recorded Last Taken Type Aspirin [Aspirin BABY CHEW TAB] 81 mg PO QDAY 30 Days #30 tab.chew 02/15/21 Unknown Rx AtorvaSTATin [Lipitor] 40 mg PO QHS 30 Days #30 tablet 02/15/21 Unknown Rx Folic Acid [Folvite] 1 mg PO DAILY 30 Days #30 tablet 02/15/21 Unknown Rx Thiamine [Vitamin B-1] 100 mg PO QDAY 30 Days #30 tablet 02/15/21 Unknown Rx amLODIPine 2.5 mg PO QDAY 30 Days #30 tablet 02/15/21 Unknown Rx hydroCHLOROthiazide [HCTZ] 25 mg PO QDAY 30 Days #30 tablet 02/15/21 Unknown Rx levETIRAcetam [Keppra TAB] 500 mg PO BID 30 Days #60 tablet 02/15/21 Unknown Rx risperiDONE [RisperDAL] 1 mg PO BID 30 Days #60 tablet 02/15/21 Unknown Rx Pantoprazole [Protonix] 40 mg PO QDAY #30 tablet 04/19/21 Unknown Rx QUEtiapine [SEROquel] 100 mg PO QHS 30 Days #30 tab 04/19/21 Unknown Rx Allergies Allergy/AdvReac Type Severity Reaction Status Date / Time No Known Allergies Allergy Unverified 04/18/21 10:44 ED Review of Systems ROS: Stated complaint: BLOOD IN STOOL, COFFEE GROUND EMESIS Other details as noted in HPI Comment: Unobtainable due to pts medical conditions (Patient is disorganized. He denies physical pain.) ED Past Medical Hx - Past Medical History Hx Hypertension: Yes Hx Seizures: Yes Additional medical history: DEMENTIA - Social History Smoking Status: Unknown if ever smoked - Medications Home Medications: Home Medications Medication Instructions Recorded Confirmed Last Taken Type Aspirin [Aspirin BABY CHEW TAB] 81 mg PO QDAY 30 Days #30 tab.chew 02/15/21 Un known Rx AtorvaSTATin [Lipitor] 40 mg PO QHS 30 Days #30 tablet 02/15/21 Unknown Rx Folic Acid [Folvite] 1 mg PO DAILY 30 Days #30 tablet 02/15/21 Unknown Rx Thiamine [Vitamin B-1] 100 mg PO QDAY 30 Days #30 tablet 02/15/21 Unknown Rx amLODIPine 2.5 mg PO QDAY 30 Days #30 tablet 02/15/21 Unknown Rx hydroCHLOROthiazide [HCTZ] 25 mg PO QDAY 30 Days #30 tablet 02/15/21 Unknown Rx levETIRAcetam [Keppra TAB] 500 mg PO BID 30 Days #60 tablet 02/15/21 Unknown Rx risperiDONE [RisperDAL] 1 mg PO BID 30 Days #60 tablet 02/15/21 Unknown Rx Pantoprazole [Protonix] 40 mg PO QDAY #30 tablet 04/19/21 Unknown Rx QUEtiapine [SEROquel] 100 mg PO QHS 30 Days #30 tab 04/19/21 Unknown Rx ED Physical Exam - General Limitations: Other (Disorganized behavior.) General appearance: alert, in no apparent distress - Head Head exam: Present: atraumatic, normocephalic - Eye Eye exam: Present: normal appearance, EOMI. Absent: nystagmus - ENT ENT exam: Present: normal exam, normal orophraynx, mucous membranes moist, normal external ear exam - Neck Neck exam: Present: normal inspection, full ROM. Absent: tenderness, meningismus - Respiratory Respiratory exam: Present: normal lung sounds bilaterally. Absent: respiratory distress, wheezes, rales, rhonchi, stridor, decreased breath sounds - Cardiovascular Cardiovascular Exam: Present: regular rate, normal rhythm, normal heart sounds. Absent: bradycardia, tachycardia, irregular rhythm, systolic murmur, diastolic murmur, rubs, gallop - GI/Abdominal GI/Abdominal exam: Present: soft, tenderness, hernia (There is a reducible umbilical hernia). Absent: distended, guarding, rebound, rigid - Rectal Rectal exam: Present: normal inspection, normal rectal tone, other (Brown stool, Trace guaiac positive. Chaperoned by slab lifting engineer Judy). Absent: heme (+) stool, black stool, bloody stool, fecal impaction - Extremities Exam Extremities exam: Present: normal inspection, full ROM, other (2+ pulses noted in the bilateral upper and lower extremities. There is no palpable cord. negative Homans sign. Muscular compartments are soft. The pelvis is stable.). Absent: pedal edema, calf tenderness - Back Exam Back exam: Present: normal inspection, full ROM. Absent: tenderness, CVA tenderness (R), CVA tenderness (L), paraspinal tenderness, vertebral tenderness - Neurological Exam Neurological exam: Present: altered (The patient is awake. The patient follows commands. The patient moves 4 extremities. The patient is disorganized.), other (There is no facial droop. The tongue is midline. EOMI. 5/5 strength in 4 extremities.) - Psychiatric Psychiatric exam: Present: agitated, flat affect. Absent: homicidal ideation, suicidal ideation - Skin Skin exam: Present: warm, dry, intact, normal color. Absent: rash ED Course Vital Signs 04/18/21 04/18/21 10:44 22:46 Temperature 97.8 F 98.1 F Pulse Rate 81 86 Respiratory 18 18 Rate Blood Pressure 156/98 107/56 [Left] O2 Sat by Pulse 98 100 Oximetry - Reevaluation(s) Reevaluation #1: 04/18/21 17:27 Differential diagnosis, including but not limited to: Schizophrenia, dementia, pneumonia, urinary tract infection, colitis, diverticulitis, medical screening examination, behavioral health screening examination Assessment and plan: 61-year-old gentleman, who is afebrile, with reassuring vital signs, with a nonfocal motor neurologic examination, who appears to be disorganized. He was sent here from [facility] with a written complaint of "resident vomited coffee color, combative, change in mental status." While the patient is not overly aggressive at this time, he is initially uncooperative with the recommended diagnostic work-up, he is not of sound mind, and he does not have decision-making capacity. Given his history of dementia and schizophrenia, and this, have placed patient on a 1013. Laboratory studies were obtained, they are essentially nonactionable. A urinalysis and EKG are pending at this time. Patient has brown stool that is trace guaiac positive, and he is noted to be on iron sulfate. Have not seen any nausea or vomiting while here. Suspect that documented "change in mental status", is likely secondary to underlying dementia and schizophrenia. Have requested psychiatric consultation. Laboratory studies reviewed and appreciated, patient does not require emergent GI evaluation at this time. Avoid NSAIDs, start Protonix, as needed antiemetics, he may follow-up with outpatient GI for this complaint. CT scan of the brain was negative for acute findings, and a CT scan of the abdomen pelvis was negative for acute findings. Pending EKG and urinalysis, this patient will be placed on hold status, and we will continue his home medications. At this point in time, this patient does not appear to have an immediate medical contraindication to psychiatric admission, evaluation, consultation and placement. I do suspect that the patient's disorganized behavior is likely chronic secondary to the aforementioned, so the psychiatric team recommends discharge and discontinuation of 1013, it would be reasonable to discharge this patient back to living at [facility], with diet and lifestyle modifications, and instructions to follow-up as an outpatient. 04/18/21 20:24 Urinalysis is unremarkable and nonactionable. Patient has been resting comfortably and in no acute distress. At this point time, this patient does not appear to have an immediate medical contraindication to psychiatric admission, evaluation, consultation and placement. Pending psychiatric evaluation. 04/19/21 12:23 the patient is seen and reexamined. He is cooperative. He is not in any acute distress. Nursing team endorses no acute issues or concerns overnight. The psychiatry team have recommended discontinuation of 1013, and discharge from a psychiatric perspective. I medically cleared this patient yesterday. Patient observed in this department for a prolonged period of time without clinical decompensation. Discharged back to his personal detention. Avoid NSAIDs, start Protonix, outpatient GI follow-up ED Medical Decision Making - Lab Data Result diagrams: 04/18/21 16:12 04/18/21 16:12 Vital Signs 04/18/21 10:44 Temperature 97.8 F Pulse Rate 81 Respiratory 18 Rate Blood Pressure 156/98 [Left] O2 Sat by Pulse 98 Oximetry Lab Results 04/18/21 04/18/21 04/18/21 Range/Units 16:12 16:12 16:12 WBC 7.8 (4.5-11.0) K/mm3 RBC 5.40 H (3.65-5.03) M/mm3 Hgb 12.1 (11.8-15.2) gm/dl Hct 39.3 (35.5-45.6) % MCV 73 L (84-94) fl MCH 22 L (28-32) pg MCHC 31 L (32-34) % RDW 16.0 H (13.2-15.2) % Plt Count 245 (140-440) K/mm3 Lymph % (Auto) 23.4 (13.4-35.0) % [place] % (Auto) 7.0 (0.0-7.3) % Eos % (Auto) 4.9 H (0.0-4.3) % Baso % (Auto) 1.3 (0.0-1.8) % Lymph # (Auto) 1.8 (1.2-5.4) K/mm3 [place] # (Auto) 0.5 (0.0-0.8) K/mm3 Eos # (Auto) 0.4 (0.0-0.4) K/mm3 Baso # (Auto) 0.1 (0.0-0.1) K/mm3 Seg Neutrophils % 63.4 (40.0-70.0) % Seg Neutrophils # 5.0 (1.8-7.7) K/mm3 PT 14.8 (12.2-14.9) Sec. INR 1.05 (0.87-1.13) APTT 32.6 (24.2-36.6) Sec. Sodium 141 (137-145) mmol/L Potassium 4.1 (3.6-5.0) mmol/L Chloride 105.4 (98-107) mmol/L Carbon Dioxide 24 (22-30) mmol/L Anion Gap 16 mmol/L BUN 15 (9-20) mg/dL Creatinine 0.8 (0.8-1.3) mg/dL Estimated GFR > 60 ml/min BUN/Creatinine Ratio 19 % Glucose 90 (75-100) mg/dL Lactic Acid (0.7-2.0) mmol/L Calcium 9.9 (8.4-10.2) mg/dL Total Bilirubin 0.20 (0.1-1.2) mg/dL AST 15 (5-40) units/L ALT 24 (7-56) units/L Alkaline Phosphatase 84 (35-129) units/L Ammonia (25-60) umol/L Total Creatine Kinase 131 (55-170) units/L Troponin T < 0.010 (0.00-0.029) ng/mL Total Protein 8.0 (6.3-8.2) g/dL Albumin 4.4 (3.9-5) g/dL Albumin/Globulin Ratio 1.2 % TSH (0.270-4.200) mlU/mL Salicylates (2.8-20.0) mg/dL Acetaminophen (10.0-30.0) ug/mL Plasma/Serum Alcohol (0-0.07) % 04/18/21 04/18/21 04/18/21 Range/Units 16:12 16:12 16:12 WBC (4.5-11.0) K/mm3 RBC (3.65-5.03) M/mm3 Hgb (11.8-15.2) gm/dl Hct (35.5-45.6) % MCV (84-94) fl MCH (28-32) pg MCHC (32-34) % RDW (13.2-15.2) % Plt Count (140-440) K/mm3 Lymph % (Auto) (13.4-35.0) % [place] % (Auto) (0.0-7.3) % Eos % (Auto) (0.0-4.3) % Baso % (Auto) (0.0-1.8) % Lymph # (Auto) (1.2-5.4) K/mm3 [place] # (Auto) (0.0-0.8) K/mm3 Eos # (Auto) (0.0-0.4) K/mm3 Baso # (Auto) (0.0-0.1) K/mm3 Seg Neutrophils % (40.0-70.0) % Seg Neutrophils # (1.8-7.7) K/mm3 PT (12.2-14.9) Sec. INR (0.87-1.13) APTT (24.2-36.6) Sec. Sodium (137-145) mmol/L Potassium (3.6-5.0) mmol/L Chloride (98-107) mmol/L Carbon Dioxide (22-30) mmol/L Anion Gap mmol/L BUN (9-20) mg/dL Creatinine (0.8-1.3) mg/dL Estimated GFR ml/min BUN/Creatinine Ratio % Glucose (75-100) mg/dL Lactic Acid 1.40 (0.7-2.0) mmol/L Calcium (8.4-10.2) mg/dL Total Bilirubin (0.1-1.2) mg/dL AST (5-40) units/L ALT (7-56) units/L Alkaline Phosphatase (35-129) units/L Ammonia 45.0 (25-60) umol/L Total Creatine Kinase (55-170) units/L Troponin T (0.00-0.029) ng/mL Total Protein (6.3-8.2) g/dL Albumin (3.9-5) g/dL Albumin/Globulin Ratio % TSH 1.590 (0.270-4.200) mlU/mL Salicylates (2.8-20.0) mg/dL Acetaminophen (10.0-30.0) ug/mL Plasma/Serum Alcohol (0-0.07) % 04/18/21 04/18/21 04/18/21 Range/Units 16:12 16:12 16:12 WBC (4.5-11.0) K/mm3 RBC (3.65-5.03) M/mm3 Hgb (11.8-15.2) gm/dl Hct (35.5-45.6) % MCV (84-94) fl MCH (28-32) pg MCHC (32-34) % RDW (13.2-15.2) % Plt Count (140-440) K/mm3 Lymph % (Auto) (13.4-35.0) % [place] % (Auto) (0.0-7.3) % Eos % (Auto) (0.0-4.3) % Baso % (Auto) (0.0-1.8) % Lymph # (Auto) (1.2-5.4) K/mm3 [place] # (Auto) (0.0-0.8) K/mm3 Eos # (Auto) (0.0-0.4) K/mm3 Baso # (Auto) (0.0-0.1) K/mm3 Seg Neutrophils % (40.0-70.0) % Seg Neutrophils # (1.8-7.7) K/mm3 PT (12.2-14.9) Sec. INR (0.87-1.13) APTT (24.2-36.6) Sec. Sodium (137-145) mmol/L Potassium (3.6-5.0) mmol/L Chloride (98-107) mmol/L Carbon Dioxide (22-30) mmol/L Anion Gap mmol/L BUN (9-20) mg/dL Creatinine (0.8-1.3) mg/dL Estimated GFR ml/min BUN/Creatinine Ratio % Glucose (75-100) mg/dL Lactic Acid (0.7-2.0) mmol/L Calcium (8.4-10.2) mg/dL Total Bilirubin (0.1-1.2) mg/dL AST (5-40) units/L ALT (7-56) units/L Alkaline Phosphatase (35-129) units/L Ammonia (25-60) umol/L Total Creatine Kinase (55-170) units/L Troponin T (0.00-0.029) ng/mL Total Protein (6.3-8.2) g/dL Albumin (3.9-5) g/dL Albumin/Globulin Ratio % TSH (0.270-4.200) mlU/mL Salicylates < 0.3 L (2.8-20.0) mg/dL Acetaminophen 5.0 L (10.0-30.0) ug/mL Plasma/Serum Alcohol < 0.01 (0-0.07) % - EKG Data -: EKG Interpreted by Wy EKG shows normal: sinus rhythm Rate: normal - EKG Data 04/18/21 19:45 The EKG is interpreted at 19: 34 Sinus rhythm, bradycardia, rate 52 bpm. Normal axis, normal P wave axis, left ventricular hypertrophy. Abnormal EKG. Not a STEMI. First-degree AV block. - Radiology Data Radiology results: pending, report reviewed, image reviewed CT ABDOMEN AND PELVIS WITHOUT CONTRAST INDICATION / CLINICAL INFORMATION: n/v, ams, hx of coffee groun emesis. TECHNIQUE: Axial CT images were obtained throug h the abdomen and pelvis without IV contrast. All CT scans at this location are performed using CT dose reduction for ALARA by means of automated exposure control. COMPARISON: None available. FINDINGS: LOWER CHEST: There is a very small right pleural effusion. LIVER: No significant abnormality. GALLBLADDER: No significant abnormality. BILE DUCTS: No significant abnormality. PANCREAS: No significant abnormality. SPLEEN: No significant abnormality. ADRENALS: No significant abnormality. RIGHT KIDNEY / URETER: There is a small hypodensity in the upper pole likely representing a cyst. LEFT KIDNEY / URETER: There are hypodensities characteristic of cysts. STOMACH / SMALL BOWEL: No significant abnormality. COLON: No significant abnormality. APPENDIX: No significant abnormality. PERITONEUM: No free fluid. No free air. No fluid collection. LYMPH NODES: No significant adenopathy. AORTA / ARTERIES: No significant abnormality. IVC / VEINS: No significant abnormality. URINARY BLADDER: No significant abnormality. REPRODUCTIVE ORGANS: No significant abnormality. ADDITIONAL FINDINGS: None. SKELETAL SYSTEM: No acute abnormality. There are healed left posterior rib fractures. IMPRESSION: 1. There is no obstruction, inflammation, or free air. There are no abnormal fluid collections. No acute abnormality is seen. Signer Name: Ran Rob MD Signed: 04/18/2021 3:41 PM Workstation Name: [id number] NONENHANCED CT SCAN OF THE HEAD: INDICATION / CLINICAL INFORMATION: 61 years Male; Altered Mental Status. TECHNIQUE: Routine CT head without contrast. All CT scans at this location are performed using CT dose reduction for ALARA by means of automated exposure control. COMPARISON: CT scan of the head from 12/27/2020 FINDINGS: BRAIN / INTRACRANIAL CONTENTS: No acute hemorrhage, mass effect, midline shift, hydrocephalus, or acute, large territorial infarct. The last CT scan, low-attenuation area in the right inferior medial frontal lobe and may be a lesser degree in the left anterior inferior medial frontal lobe and in the inferior right frontal gyrus; this appears to be posttraumatic old healed contusion; is there recent head injury since 12/27/2020 Seen in the previous CT scan, volume loss in the cerebellar vermis; cerebellar hemispheres normal; cortical sulci in the cerebral hemispheres normal No significant white matter abnormality. CRANIOCERVICAL JUNCTION: No significant abnormality. ORBITS: No significant abnormality of visualized orbits. SINUSES / MASTOIDS: No significant abnormality of the visualized paranasal sinuses or mastoid air cells. ADDITIONAL FINDINGS: None. IMPRESSION: No acute focal parenchymal lesion in the brain Since the last CT scan, low-attenuation area in the anterior inferior medial and lateral right frontal lobe, probably from old healed contusion Signer Name: Gary Valencia MD Signed: 04/18/2021 3:47 PM Workstation Name: [id number] 1 VIEW 04/18/2021 3:31 PM INDICATION / CLINICAL INFORMATION: Altered Ment al Status. COMPARISON: None available. FINDINGS: SUPPORT DEVICES: None. HEART / MEDIASTINUM: No significant abnormality. LUNGS / PLEURA: No significant pulmonary or pleural abnormality. No pneumothorax. ADDITIONAL FINDINGS: No significant additional findings. IMPRESSION: 1. No acute findings. Signer Name: Karthik Cisse MD Signed: 04/18/2021 3:36 PM Workstation Name: [id number] Critical care attestation.: If time is entered above; I have spent that time in minutes in the direct care of this critically ill patient, excluding procedure time. ED Disposition Clinical Impression: Umbilical hernia, Disorganized behavior, Schizophrenia, History of dementia, History of nausea and vomiting, Medical clearance for psychiatric admission, Encounter for behavioral health screening Disposition: 03 [facility] Is pt being admited?: No Does the pt Need Aspirin: No Condition: Good Additional Instructions: Recommend that patient avoid Motrin, ibuprofen, Naprosyn, Aleve, aspirin, heavy and spicy foods. Take the Protonix as recommended. Follow-up with a cream cheese maker within the next month. Follow-up with an outpatient psychiatrist within the next week. Follow-up with a primary care doctor within the next month. Please have your medical records obtained by an outpatient primary care doctor by contacting the medical records department, to follow-up on nonemergent i ncidental findings. Please return to the emergency room right away with new pain, worsened pain, mi gration of pain, projectile vomiting, change in mental status, confusion, inability tolerate liquid feeds, new, worsened or different symptoms not present on the initial emergency room evaluation OUTPATIENT MENTAL HEALTH RESOURCES [facility], [facility] Angeline Nicholas MD: [address] [facility] [address] [place] [address] [place] [address] [place] [facility]: [employer] [address] [place] [address] [place] [address] [phone] [facility]: [facility]: [address] [facility] [place] [address] [facility] [id number] [facility]: Quinton Bedoya MD: [id number] Located within [facility] [address] [facility] [id number] [facility]: [address] [place] [address] [phone] [place] CRISIS AND ACCESS LINE: Prescriptions: QUEtiapine [SEROquel] 100 mg PO QHS 30 Days #30 tab Referrals: [facility] [Provider Group] - 3-5 Days [facility] [Provider Group] - 3-5 Days [facility] [Outside] - 3-5 Days
[2021-04-18] MEDS ORDERED: ONDANSETRON 4 MG ODT TAB PO PRN (17:33)
[2021-04-18 19:47] LABS: Bilirubin,Urine NEG (Negative); Blood,Urine NEG (Negative); Color,Urine Yellow (Yellow); Mucus,Urine FEW /HPF; Protein,Urine <15 mg/dL mg/dL (Negative); Urobilinogen,Urine < 2.0 mg/dL (<2.0)
[2021-04-18 19:56] LABS: Amphetamine Screen,Urine Negative; Benzodiazepines Screen,Urine Negative; Cannabinoid Screen,Urine Negative; Cocaine Screen,Urine Negative; Methadone Screen,Urine Negative; Opiate Screen,Urine Negative
[2021-04-18] MEDS: FERROUS SULFATE 325 MG TAB PO SCH (21:52)
[2021-04-18] MEDS: levETIRAcetam 500 MG TAB PO SCH (21:52)
[2021-04-18] MEDS: QUEtiapine 100 MG TAB PO SCH (21:53)
[2021-04-19] MEDS: PANTOPRAZOLE 40 MG TAB PO SCH (07:33)
[2021-04-19] MEDS: THIAMINE 100 MG TAB PO SCH (10:09)
[2021-04-19] MEDS: MAGNESIUM OXIDE 400 MG TAB PO SCH (10:09)
[2021-04-19] MEDS: amLODIPine 5 MG TAB PO SCH (10:09)
[2021-04-19] MEDS: hydroCHLOROthiazide 25 MG TAB PO SCH (10:09)
[2021-04-19] MEDS: FOLIC ACID 1 MG TAB PO SCH (10:09)
[2021-04-19] MEDS: levETIRAcetam 500 MG TAB PO SCH (10:09)
--- NOTE | 2021-04-19 11:34 | Consultation ---
History of Present Illness - Reason for Consult Consult date: 04/19/21 Reason for consult: Schizophrenia - History of Present Psychiatric Illness The patient is a 61 year old male with history of Dementia and schizophrenia. The patient was seen this morning. He is calm and oriented to self. The patient was asked why he came to the ED he respond to the questions.The patient nodded yes to being homeless, no to having current suicidal/homicidal ideation and also nodded no to hallucinations. PAST PSYCHIATRIC HISTORY:schizophrenia, dementia PAST MEDICAL HISTORY: None reported Family Psychiatric History: None reported or documented SOCIAL HISTORY REVIEW OF SYSTEMS Constitutional: Negative for weight loss ENT: Negative for stridor Respiratory: Negative for cough or hemoptysis All other systems reviewed and are negative MSE Diagnoses: HX Dementia, Schizophrenia Treatment Plan Continue - Home Medications. Case management Seroquel 100mg po QHS Patient should be compliant with medications and not to use drugs and not to drink alcohol. PSYCHOTHERAPY: Supportive psychotherapy provided MEDICAL: Per primary team DELIRIUM PRECAUTIONS: Please re-orient patient frequently, keep lights on during the day, and minimize benzodiazepines and opiates as these medications could worsen patient's confusion. POLYSOMNOGRAPHY TECHNOLOGIST: Per medical team DISPOSITION: Do not recommend acute inpatient psychiatric hospitalization at this time. The health insurance assessor will provide patient with psychiatric outpatient resources. FOLLOW-UP: Will sign off. Thank you for the consult. Please contact with any questions and/or concerns. Medications and Allergies Medications and Allergies Allergies Allergy/AdvReac Type Severity Reaction Status Date / Time No Known Allergies Allergy Unverified 04/18/21 10:44 Home Medications Medication Instructions Recorded Confirmed Last Taken Type Aspirin [Aspirin BABY CHEW TAB] 81 mg PO QDAY 30 Days #30 tab.chew 02/15/21 Unknown Rx AtorvaSTATin [Lipitor] 40 mg PO QHS 30 Days #30 tablet 02/15/21 Unknown Rx Folic Acid [Folvite] 1 mg PO DAILY 30 Days #30 tablet 02/15/21 Unknown Rx Thiamine [Vitamin B-1] 100 mg PO QDAY 30 Days #30 tablet 02/15/21 Unknown Rx amLODIPine 2.5 mg PO QDAY 30 Days #30 tablet 02/15/21 Unknown Rx hydroCHLOROthiazide [HCTZ] 25 mg PO QDAY 30 Days #30 tablet 02/15/21 Unknown Rx levETIRAcetam [Keppra TAB] 500 mg PO BID 30 Days #60 tablet 02/15/21 Unknown Rx risperiDONE [RisperDAL] 1 mg PO BID 30 Days #60 tablet 02/15/21 Unknown Rx QUEtiapine [SEROquel] 100 mg PO QHS 30 Days #30 tab 04/19/21 Unknown Rx Active Meds: Active Medications Amlodipine Besylate (Amlodipine 5 Mg Tab) 2.5 mg PO QDAY [facility] Last Admin: 04/19/21 10:09 Dose: 2.5 mg Atorvastatin Calcium (Atorvastatin 40 Mg Tab) 40 mg PO QHS [facility] Last Admin: 04/18/21 22:04 Dose: 40 mg Ferrous Sulfate (Ferrous Sulfate 325 Mg Tab) 325 mg PO QHS [facility] Last Admin: 04/18/21 21:52 Dose: 325 mg Folic Acid (Folic Acid 1 Mg Tab) 1 mg PO DAILY [facility] Last Admin: 04/19/21 10:09 Dose: 1 mg Haloperidol Lactate (Haloperidol Lactate 5 Mg/1 Ml Inj) 5 mg IM Q6HR PRN PRN Reason: Agitation Hydrochlorothiazide (Hydrochlorothiazide 25 Mg Tab) 25 mg PO QDAY [facility] Last Admin: 04/19/21 10:09 Dose: 25 mg Levetiracetam (Levetiracetam 500 Mg Tab) 1,500 mg PO BID [facility] Last Admin: 04/19/21 10:09 Dose: 1,500 mg Lorazepam (Lorazepam 2 Mg/Ml Vial) 2 mg IM Q4HR PRN PRN Reason: Agitation Magnesium Oxide (Magnesium Oxide 400 Mg Tab) 400 mg PO QDAY [facility] Last Admin: 04/19/21 10:09 Dose: 400 mg Ondansetron HCl (Ondansetron 4 Mg Odt Tab) 4 mg PO Q6HR PRN PRN Reason: Nausea Pantoprazole Sodium (Pantoprazole 40 Mg Tab) 40 mg PO QDAC [facility] Last Admin: 04/19/21 07:33 Dose: 40 mg Quetiapine Fumarate (Quetiapine 100 Mg Tab) 100 mg PO QHS [facility] Last Admin: 04/18/21 21:53 Dose: 100 mg Thiamine HCl (Thiamine 100 Mg Tab) 100 mg PO QDAY [facility] Last Admin: 04/19/21 10:09 Dose: 100 mg Mental Status Exam - Vital signs Last Vital Signs Temp 98.1 F 04/18/21 22:46 Pulse 86 04/18/21 22:46 Resp 18 01/20/22 22:46 BP 107/56 04/18/21 22:46 Pulse Ox 100 04/18/21 22:46 Results Result Diagrams: 04/18/21 16:12 04/18/21 16:12 Abnormal lab results 04/18/21 04/18/21 04/18/21 Range/Units 16:12 16:12 16:12 RBC 5.40 H (3.65-5.03) M/mm3 MCV 73 L (84-94) fl MCH 22 L (28-32) pg MCHC 31 L (32-34) % RDW 16.0 H (13.2-15.2) % Eos % (Auto) 4.9 H (0.0-4.3) % Salicylates < 0.3 L (2.8-20.0) mg/dL Acetaminophen 5.0 L (10.0-30.0) ug/mL All other labs normal.
[2021-04-20] MEDS: levETIRAcetam 500 MG TAB PO SCH ×2 (18:04→22:04)
[2021-04-20] MEDS: amLODIPine 5 MG TAB PO SCH (18:04)
[2021-04-20] MEDS: PANTOPRAZOLE 40 MG TAB PO SCH (18:04)
[2021-04-20] MEDS: hydroCHLOROthiazide 25 MG TAB PO SCH (18:05)
[2021-04-20] MEDS: FOLIC ACID 1 MG TAB PO SCH (18:05)
[2021-04-20] MEDS: MAGNESIUM OXIDE 400 MG TAB PO SCH (18:05)
[2021-04-20] MEDS: THIAMINE 100 MG TAB PO SCH (18:05)
[2021-04-20] MEDS: FERROUS SULFATE 325 MG TAB PO SCH (22:04)
[2021-04-20] MEDS: QUEtiapine 100 MG TAB PO SCH (22:05)
[2021-04-21] MEDS: PANTOPRAZOLE 40 MG TAB PO SCH (07:56)
[2021-04-21] MEDS: amLODIPine 5 MG TAB PO SCH (10:02)
[2021-04-21] MEDS: hydroCHLOROthiazide 25 MG TAB PO SCH (10:03)
[2021-04-21] MEDS: levETIRAcetam 500 MG TAB PO SCH ×3 (10:09→22:31)
[2021-04-21] MEDS: THIAMINE 100 MG TAB PO SCH (10:10)
[2021-04-21] MEDS: MAGNESIUM OXIDE 400 MG TAB PO SCH (10:10)
[2021-04-21] MEDS: FOLIC ACID 1 MG TAB PO SCH (10:10)
--- NOTE | 2021-04-21 11:40 | Emergency Department Report ---
Blank Doc - Documentation Documentation: This morning, patient is resting comfortably. There is no complaint. We are awaiting case management for placement. Apparently the patient needs to be placed in a new personal assisted. His prior personal assisted refuses to take the patient back. This has been reported to the state. I have asked that this be reported to Adult Protective Services in addition for patient abandonment. Patient does not have any ongoing or active psychiatric issues at this time. He had been medically cleared.
[2021-04-21] MEDS: FERROUS SULFATE 325 MG TAB PO SCH ×2 (22:29→22:30)
[2021-04-21] MEDS: QUEtiapine 100 MG TAB PO SCH (22:31)
[2021-04-22] MEDS: PANTOPRAZOLE 40 MG TAB PO SCH (07:45)
--- NOTE | 2021-04-22 11:47 | Event Note ---
Date: 04/22/21 S: No events reported overnight O: Vital Signs - 8 hr 04/22/21 04/22/21 05:33 09:26 Temperature 98.1 F Pulse Rate 68 Respiratory 18 Rate Blood Pressure 103/67 [Left] O2 Sat by Pulse 94 98 Oximetry A: Cleared medically and by psych P: awaiting placement/safe discharge
[2021-04-22] MEDS: FOLIC ACID 1 MG TAB PO SCH (11:50)
[2021-04-22] MEDS: amLODIPine 5 MG TAB PO SCH (11:50)
[2021-04-22] MEDS: levETIRAcetam 500 MG TAB PO SCH (11:50)
[2021-04-22] MEDS: THIAMINE 100 MG TAB PO SCH (11:51)
[2021-04-22] MEDS: MAGNESIUM OXIDE 400 MG TAB PO SCH (11:51)
[2021-04-22] MEDS: hydroCHLOROthiazide 25 MG TAB PO SCH (11:53)
--- NOTE | 2021-04-23 11:10 | Event Note ---
Date: 04/23/21 pt was assessed amd will be discharged home continue meds OP follow up abstain from drugs
[2021-04-23] MEDS: levETIRAcetam 500 MG TAB PO SCH ×3 (15:50→22:45)
[2021-04-23] MEDS: PANTOPRAZOLE 40 MG TAB PO SCH (15:50)
[2021-04-23] MEDS: amLODIPine 5 MG TAB PO SCH (15:50)
[2021-04-23] MEDS: FOLIC ACID 1 MG TAB PO SCH (15:51)
[2021-04-23] MEDS: hydroCHLOROthiazide 25 MG TAB PO SCH (15:51)
[2021-04-23] MEDS: MAGNESIUM OXIDE 400 MG TAB PO SCH (15:51)
[2021-04-23] MEDS: THIAMINE 100 MG TAB PO SCH (15:52)
[2021-04-23] MEDS: QUEtiapine 100 MG TAB PO SCH ×3 (22:43→22:46)
[2021-04-23] MEDS: FERROUS SULFATE 325 MG TAB PO SCH ×2 (22:44→22:45)
[2021-04-24] MEDS: PANTOPRAZOLE 40 MG TAB PO SCH (08:41)
[2021-04-24] MEDS: hydroCHLOROthiazide 25 MG TAB PO SCH (10:04)
[2021-04-24] MEDS: MAGNESIUM OXIDE 400 MG TAB PO SCH (10:04)
[2021-04-24] MEDS: amLODIPine 5 MG TAB PO SCH (10:04)
[2021-04-24] MEDS: FOLIC ACID 1 MG TAB PO SCH (10:05)
[2021-04-24] MEDS: THIAMINE 100 MG TAB PO SCH (10:05)
[2021-04-24] MEDS: levETIRAcetam 500 MG TAB PO SCH ×2 (10:05→21:42)
--- NOTE | 2021-04-24 11:36 | Emergency Department Report ---
Blank Doc - Documentation Documentation: There were no events throughout the night. Case management is still looking at placement. I have asked yet again that Adult Protective Services be notified as the prior facility that house this patient has abandoned him in the emergency department. This should be reported as patient abandonment.
[2021-04-24] MEDS: FERROUS SULFATE 325 MG TAB PO SCH (21:42)
[2021-04-24] MEDS: QUEtiapine 100 MG TAB PO SCH (21:42)
[2021-04-25] MEDS: PANTOPRAZOLE 40 MG TAB PO SCH (07:51)
[2021-04-25] MEDS: levETIRAcetam 500 MG TAB PO SCH ×2 (09:42→22:49)
[2021-04-25] MEDS: MAGNESIUM OXIDE 400 MG TAB PO SCH (09:42)
[2021-04-25] MEDS: FOLIC ACID 1 MG TAB PO SCH (09:42)
[2021-04-25] MEDS: hydroCHLOROthiazide 25 MG TAB PO SCH (09:42)
[2021-04-25] MEDS: THIAMINE 100 MG TAB PO SCH (09:43)
[2021-04-25] MEDS: amLODIPine 5 MG TAB PO SCH (09:43)
--- NOTE | 2021-04-25 12:27 | Emergency Department Report ---
Blank Doc - Documentation Documentation: Chart reviewed. No events overnight. Patient awaiting placement. Marianela aguirre
--- NOTE | 2021-04-25 12:49 | Electrocardiograph Report ---
[facility] Test Date: 2021-04-18 Test Time: 19:34:51 Pat Name: KENZIE FIGUEREDO Department: Room: Gender: M Representative Phlebotomy Services: DANA : 1960 Requested By: TRISTA MENDEZ Order Number: [id number] Reading MD: Nithin Mcnamara Measurements Intervals [place] Rate: 52 P: 14 FL: 207 QRS: 60 QRSD: 100 T: 46 QT: 433 QTc: 401 Interpretive Statements Sinus bradycardia Borderline prolonged FL interval Compared to ECG 12/28/2020 10:18:25 Sinus rate has slowed Electronically Signed On 04-25-2021 12:49:28 EST by Nithin Mcnamara
[2021-04-25] MEDS: QUEtiapine 100 MG TAB PO SCH (22:49)
[2021-04-25] MEDS: FERROUS SULFATE 325 MG TAB PO SCH (22:49)
[2021-04-26] MEDS: PANTOPRAZOLE 40 MG TAB PO SCH (08:10)
[2021-04-26] MEDS: amLODIPine 5 MG TAB PO SCH (09:39)
[2021-04-26] MEDS: FOLIC ACID 1 MG TAB PO SCH (09:42)
[2021-04-26] MEDS: THIAMINE 100 MG TAB PO SCH (09:42)
[2021-04-26] MEDS: levETIRAcetam 500 MG TAB PO SCH ×2 (09:42→22:30)
[2021-04-26] MEDS: hydroCHLOROthiazide 25 MG TAB PO SCH (09:42)
[2021-04-26] MEDS: MAGNESIUM OXIDE 400 MG TAB PO SCH (09:42)
--- NOTE | 2021-04-26 11:38 | Emergency Department Report ---
Blank Doc - Documentation Documentation: 61-year-old male awaiting placement. No events documented overnight. Vital s igns stable
[2021-04-26] MEDS: FERROUS SULFATE 325 MG TAB PO SCH (22:30)
[2021-04-26] MEDS: QUEtiapine 100 MG TAB PO SCH (22:30)
[2021-04-27] MEDS: THIAMINE 100 MG TAB PO SCH (11:56)
[2021-04-27] MEDS: levETIRAcetam 500 MG TAB PO SCH ×2 (11:56→22:17)
[2021-04-27] MEDS: MAGNESIUM OXIDE 400 MG TAB PO SCH (11:56)
[2021-04-27] MEDS: FOLIC ACID 1 MG TAB PO SCH (11:56)
[2021-04-27] MEDS: hydroCHLOROthiazide 25 MG TAB PO SCH (11:57)
[2021-04-27] MEDS: amLODIPine 5 MG TAB PO SCH (11:57)
--- NOTE | 2021-04-27 12:27 | Event Note ---
Date: 04/27/21 61-year-old male who was medically and psychiatrically cleared currently awaiting case management placement. Vital signs reviewed and are stable. Home meds have been reconciled. No acute events overnight.
[2021-04-27] MEDS: PANTOPRAZOLE 40 MG TAB PO SCH (14:17)
[2021-04-27] MEDS: FERROUS SULFATE 325 MG TAB PO SCH (22:17)
[2021-04-27] MEDS: QUEtiapine 100 MG TAB PO SCH (22:17)
[2021-04-28] MEDS: PANTOPRAZOLE 40 MG TAB PO SCH (08:06)
[2021-04-28] MEDS: FOLIC ACID 1 MG TAB PO SCH (10:22)
[2021-04-28] MEDS: THIAMINE 100 MG TAB PO SCH (10:23)
[2021-04-28] MEDS: levETIRAcetam 500 MG TAB PO SCH ×2 (10:23→22:30)
[2021-04-28] MEDS: MAGNESIUM OXIDE 400 MG TAB PO SCH (10:23)
[2021-04-28] MEDS: hydroCHLOROthiazide 25 MG TAB PO SCH (10:59)
[2021-04-28] MEDS: amLODIPine 5 MG TAB PO SCH (10:59)
[2021-04-28] MEDS: FERROUS SULFATE 325 MG TAB PO SCH (22:30)
[2021-04-28] MEDS: QUEtiapine 100 MG TAB PO SCH (22:30)
[2021-04-29] MEDS: PANTOPRAZOLE 40 MG TAB PO SCH (07:27)
[2021-04-29] MEDS: THIAMINE 100 MG TAB PO SCH (09:35)
[2021-04-29] MEDS: levETIRAcetam 500 MG TAB PO SCH ×2 (09:35→23:07)
[2021-04-29] MEDS: FOLIC ACID 1 MG TAB PO SCH (09:36)
[2021-04-29] MEDS: amLODIPine 5 MG TAB PO SCH (09:36)
[2021-04-29] MEDS: hydroCHLOROthiazide 25 MG TAB PO SCH (09:36)
[2021-04-29] MEDS: MAGNESIUM OXIDE 400 MG TAB PO SCH (09:36)
--- NOTE | 2021-04-29 11:34 | Emergency Department Report ---
Blank Doc - Documentation Documentation: We are awaiting case management placement. Patient has been medically cleared. There is no psychiatric issue that would preclude discharge. Case management will be contacted this morning for a plan.
[2021-04-29] MEDS: QUEtiapine 100 MG TAB PO SCH (23:07)
[2021-04-29] MEDS: FERROUS SULFATE 325 MG TAB PO SCH (23:07)
[2021-04-30] MEDS: amLODIPine 5 MG TAB PO SCH (10:23)
[2021-04-30] MEDS: PANTOPRAZOLE 40 MG TAB PO SCH (10:23)
[2021-04-30] MEDS: FOLIC ACID 1 MG TAB PO SCH (10:23)
[2021-04-30] MEDS: MAGNESIUM OXIDE 400 MG TAB PO SCH (10:24)
[2021-04-30] MEDS: THIAMINE 100 MG TAB PO SCH (10:24)
[2021-04-30] MEDS: levETIRAcetam 500 MG TAB PO SCH ×2 (10:24→22:43)
[2021-04-30] MEDS: hydroCHLOROthiazide 25 MG TAB PO SCH (10:24)
--- NOTE | 2021-04-30 11:22 | Emergency Department Report ---
Blank Doc - Documentation Documentation: Chart reviewed 61-year-old male waiting placement. Evaluated by case management this morning please refer to note. Vital signs normal. Patient intermittently compliant with medications and has episodes of agitation and belligerence
[2021-04-30] MEDS: FERROUS SULFATE 325 MG TAB PO SCH (22:43)
[2021-04-30] MEDS: QUEtiapine 100 MG TAB PO SCH (22:44)
[2021-05-01] MEDS: PANTOPRAZOLE 40 MG TAB PO SCH (09:44)
[2021-05-01] MEDS: THIAMINE 100 MG TAB PO SCH (09:44)
[2021-05-01] MEDS: levETIRAcetam 500 MG TAB PO SCH ×2 (09:44→22:45)
[2021-05-01] MEDS: FOLIC ACID 1 MG TAB PO SCH (09:44)
[2021-05-01] MEDS: hydroCHLOROthiazide 25 MG TAB PO SCH (09:44)
[2021-05-01] MEDS: MAGNESIUM OXIDE 400 MG TAB PO SCH (09:44)
[2021-05-01] MEDS: amLODIPine 5 MG TAB PO SCH (11:11)
--- NOTE | 2021-05-01 12:41 | Event Note ---
Date: 05/01/21 Patient seen and examined. Nursing team reports no acute issues or concerns this morning. Awaiting disposition to be arranged by case management. Resting comfortably in stretcher, and in no acute distress
[2021-05-01] MEDS: FERROUS SULFATE 325 MG TAB PO SCH (22:45)
[2021-05-01] MEDS: QUEtiapine 100 MG TAB PO SCH (22:46)
[2021-05-02] MEDS: PANTOPRAZOLE 40 MG TAB PO SCH (07:47)
--- NOTE | 2021-05-02 10:18 | Emergency Department Report ---
Blank Doc - Documentation Documentation: Patient has had no events throughout the evening and night. We are still awai ting case management placement.
[2021-05-02] MEDS: FOLIC ACID 1 MG TAB PO SCH (10:24)
[2021-05-02] MEDS: hydroCHLOROthiazide 25 MG TAB PO SCH (10:24)
[2021-05-02] MEDS: amLODIPine 5 MG TAB PO SCH (10:25)
[2021-05-02] MEDS: MAGNESIUM OXIDE 400 MG TAB PO SCH (10:25)
[2021-05-02] MEDS: levETIRAcetam 500 MG TAB PO SCH (10:25)
[2021-05-02] MEDS: THIAMINE 100 MG TAB PO SCH (10:26)
[2021-05-03] MEDS: FERROUS SULFATE 325 MG TAB PO SCH (01:39)
[2021-05-03] MEDS: QUEtiapine 100 MG TAB PO SCH (01:51)
[2021-05-03] MEDS: levETIRAcetam 500 MG TAB PO SCH ×2 (01:51→10:19)
--- NOTE | 2021-05-03 07:11 | Emergency Department Report ---
Blank Doc - Documentation Documentation: There were no events throughout the course of the night. We are still awaiting case management placement.
[2021-05-03] MEDS: amLODIPine 5 MG TAB PO SCH (10:18)
[2021-05-03] MEDS: PANTOPRAZOLE 40 MG TAB PO SCH (10:18)
[2021-05-03] MEDS: THIAMINE 100 MG TAB PO SCH (10:19)
[2021-05-03] MEDS: hydroCHLOROthiazide 25 MG TAB PO SCH (10:19)
[2021-05-03] MEDS: FOLIC ACID 1 MG TAB PO SCH (10:19)
[2021-05-03] MEDS: MAGNESIUM OXIDE 400 MG TAB PO SCH (10:19)
[2021-05-03 11:59] VITALS: BP 106/69
== END 2021-05-03 18:52 ==
LOC: EEVIPCON 10:42 → ED 10:42
DX: K42.9 Umbilical hernia without obstruction or gangrene (principal); F20.1 Disorganized schizophrenia; F20.9 Schizophrenia, unspecified; F03.90 Unspecified dementia, unspecified severity, without behavioral disturbance, psychotic disturbance, mood disturbance, and anxiety; R11.2 Nausea with vomiting, unspecified; Z13.30 Encounter for screening examination for mental health and behavioral disorders, unspecified; I10 Essential (primary) hypertension; Z20.822 Contact with and (suspected) exposure to COVID-19
CPT/HCPCS: 36415; 70450; 71045; 74176; 80053; 80307; 81001; 82140; 82550; 84443; 84484; 85025; 85610; 85730; 93005; 93010; 96361; 96365; 96372; 96375; 99285; C9113; J1200; J1630; J2060; J2405; J3411; J7120; U0003; 80320; J3490; G0480; Q0162